=== PATIENT | female | born 1955 | race Caucasian/White ===

== ENCOUNTER 2017-04-21 04:10 | Inpatient (IN) | payer MEDICARE, OTHER ==
[~2017-04-21] VITALS: Ht 165.1 cm; Wt 72.0 kg
[2017-04-21] VITALS (16 sets, daily range): BP systolic 123–147; BP diastolic 60–80; PULSE 69–92; RESP 16–22; TEMP 97.6–98.5; O2SAT 93–98
[~2017-04-21 04:10] MED LIST: AMLO5TAB2 PO; ASPI1TAB69 PO; BENZ100 PO; CIPR500T2 PO; CODE5LIQ PO; FERR325T PO; GLIP5TAB8 PO; LEVO.05 PO; LIPI20TA PO; MAGN400T2 PO; VITA500T4 PO; ZITHTAB PO
[2017-04-21] MEDS ORDERED: methylPREDNISolone SOD SUCC 125 MG/2 ML VIAL IV PUSH ONE (04:30)
--- NOTE | 2017-04-21 04:31 | PD ---
HPI Chief Complaint: Respiratory Symptoms Time Seen by Provider: 04:18 Travel History International Travel<30 days: No Contact w/Intl Traveler<30days: No Traveled to known affect area: No History of Present Illness HPI 61yo F with PMH of DM, HTN, hypothyroidism, CKD, anemia presents to the ED with multiple complaints. States she still feels sick. Pt has been having cough, generalized aches, intermittent vomiting, nausea, intermittent nonbloody diarrhea for about 5 days. Said she has midsternal chest pain when she coughs. Pt is a chronic smoker but recently switched to e-cigarettes. Went to see primary care on 04/18/17 and given zpak, tessalin pearls, and robitussin. Said she has been taking zpak but not the cough medications. PFSH Past Medical History Hx Anticoagulant Therapy: Yes (?) Anemia: Yes Asthma: No Blood Disorders: No Anxiety: No Depression: No Heart Rhythm Problems: No Cancer: No Cardiovascular Problems: Yes (hx CHF) High Cholesterol: Yes Chemotherapy: No Chest Pain: Yes Congestive Heart Failure: Yes COPD: No Cerebrovascular Accident: Yes (TIA) Diabetes: Yes (DM TYPE 2) Patient Takes Glucophage: Yes Diminished Hearing: No Endocrine: Yes Gastrointestinal Disorders: Yes (DIVERTICULOSIS, HEMORRHOIDS, COLITIS, GASTRIC ULCER) GERD: Yes Genitourinary: Yes (CKD STAGE 2-3) Hepatitis: No Hiatal Hernia: No Hypertension: Yes Immune Disorder: No Implanted Vascular Access Dvce: No Musculoskeletal: No Neurologic: Yes (PERIPHERAL NEUROPATHY) Psychiatric: No Reproductive: No Respiratory: No Immunizations Current: Yes Radiation Therapy: No Sleep Apnea: No Thyroid Disease: Yes (HYPO) Tetanus Vaccination: < 5 Years Influenza Vaccination: Yes Menopausal: Yes : 2 Para: 2 Past Surgical History Abdominal Surgery: Yes (appendectomy) Appendectomy: Yes Section: Yes (X2) Ear Surgery: No Eye Surgery: No Gynecologic Surgery: Yes (2 c sections) Joint Replacement: No Oral Surgery: No Pacemaker: No Other Surgery: Yes (APPENDECTOMY, D+C X 2, RT 3RD TOE AMPUTATION) Social History Alcohol Use: Yes (OCC) Tobacco Use: No Substance Use: No Allergies-Medications (Allergen,Severity, Reaction): Coded Allergies: Sulfa (Sulfonamide Antibiotics) (Unverified Adverse Reaction, Mild, RASH, 04/21/17) sulfamethoxazole (Unverified Adverse Reaction, Mild, Rash, 04/21/17) trimethoprim (Unverified Adverse Reaction, Mild, Rash, 04/21/17) Reported Meds & Prescriptions Reported Meds & Active Scripts Active Zithromax Z-Caleb (Azithromycin) 250 Mg Dspk 250 Mg PO DIRECTED 500 MG (2 tabs) day 1, then 1 tab days 2-5. Tessalon Perles (Benzonatate) 100 Mg Cap 200 Mg PO TID PRN Guaiatussin AC Liquid (Codeine Phosphate/Guaifenesin) 10 Mg-100 Mg/5 Ml (5 Ml) Liquid 10 Ml PO HS Ciprofloxacin (Ciprofloxacin HCl) 500 Mg Tab 500 Mg PO BID Amlodipine (Amlodipine Besylate) 5 Mg Tab 5 Mg PO DAILY Glipizide 5 Mg Tab 5 Mg PO DAILY Take 30 minutes before a meal Lipitor (Atorvastatin Calcium) 20 Mg Tab 20 Mg PO DAILY Synthroid (Levothyroxine Sodium) 50 Mcg Tab 50 Mcg PO DAILY Reported Vitamin B-12 (Cyanocobalamin) 500 Mcg Tab 500 Mcg PO DAILY Aspirin 81 Mg Tabdr 81 Mg PO DAILY Ferrous Sulfate 325 Mg Tab 325 Mg PO BID Magnesium Oxide 400 Mg Tab 800 Mg PO BID Review of Systems Except as stated in HPI: all other systems reviewed are Neg Physical Exam Narrative GENERAL: 61yo F in mild distress. SKIN: Focused skin assessment warm/dry. HEAD: Atraumatic. Normocephalic. EYES: Pupils equal and round. No scleral icterus. No injection or drainage. ENT: Throat: Clear. NECK: Trachea midline. No JVD. CARDIOVASCULAR: Regular rate and rhythm. No murmur appreciated. RESPIRATORY: Expiratory wheezing bilaterally. O2 sat 94% on RA. GASTROINTESTINAL: Abdomen soft, non-tender, nondistended. MUSCULOSKELETAL: No obvious deformities. No clubbing. No cyanosis. No edema. No calf tenderness. NEUROLOGICAL: Awake and alert. No obvious cranial nerve deficits. Motor grossly within normal limits. Normal speech. PSYCHIATRIC: Appropriate mood and affect; insight and judgment normal. Data Data Last Documented VS Vital Signs Date Time Temp Pulse Resp B/P (MAP) Pulse Ox O2 Delivery O2 Flow Rate FiO2 04/21/17 06:36 91 141/63 (89) 04/21/17 06:13 20 04/21/17 05:37 98 Nasal Cannula 2.00 04/21/17 04:18 98.4 Orders Orders Complete Blood Count With Diff (04/21/17 04:25) Basic Metabolic Panel (Bmp) (04/21/17 04:25) B-Type Natriuretic Peptide (04/21/17 04:25) Act Partial Throm Time (Ptt) (04/21/17 04:25) Prothrombin Time / Inr (Pt) (04/21/17 04:25) Magnesium (Mg) (04/21/17 04:25) Troponin I (04/21/17 04:25) Influenzae A/B Antigen (04/21/17 04:25) Electrocardiogram (04/21/17 04:25) Chest, Single Ap (04/21/17 04:25) Methylprednisolone So Succ Inj (Solumedr (04/21/17 04:30) Albuterol-Ipratropium Neb (Duoneb Neb) (04/21/17 04:30) Lactic Acid Sepsis Protocol (04/21/17 04:31) Sodium Chlor 0.9% 1000 Ml Inj (Ns 1000 M (04/21/17 04:45) Ondansetron Inj (Zofran Inj) (04/21/17 04:45) Ketorolac Inj (Toradol Inj) (04/21/17 04:45) Ondansetron Inj (Zofran Inj) (04/21/17 05:30) Morphine Inj (Morphine Inj) (04/21/17 05:45) Sodium Chloride 0.9% Flush (Ns Flush) (04/21/17 09:00) Sodium Chloride 0.9% Flush (Ns Flush) (04/21/17 05:45) Laborer Pipeline / Telemetry SINAN.Q8H (04/21/17 05:40) Heparin Inj (Heparin Inj) (04/21/17 11:45) Heparin Inj (Heparin Inj) (04/21/17 11:45) Heparin-D5w 25,000 U/250 Ml (Heparin-D5w (04/21/17 05:45) Act Partial Throm Time (Ptt) (04/21/17 05:40) Prothrombin Time / Inr (Pt) (04/21/17 05:40) Cbc No Diff, Includes Plts (04/21/17 05:40) Cbc No Diff, Includes Plts (04/24/17 06:00) Act Partial Throm Time (Ptt) (04/21/17 12:40) Aspirin (Aspirin) (04/21/17 06:00) Consult Cardiology (04/21/17 ) Nitroglycerin-D5w 50 Mg/250 Ml (Nitrogly (04/21/17 06:15) Heparin Inj (Heparin Inj) (04/21/17 06:15) (Hub Use Only)Inp Phy Cons/Ref (04/21/17 06:17) Calcium Gluconate Inj (Calcium Gluconate (04/21/17 06:45) Sodium Polysty Sulfate Liq (Kayexalate L (04/21/17 06:45) Admit Order (Ed Use Only) (04/21/17 06:35) Urinalysis - C+S If Indicated (04/21/17 06:36) Admit To Inpatient (04/21/17 ) Code Status (04/21/17 06:33) Vital Signs (Adult) SINAN.Q1H (04/21/17 06:33) Activity Bed Rest (04/21/17 06:33) Sodium Chloride 0.9% Flush (Ns Flush) (04/21/17 06:45) Sodium Chloride 0.9% Flush (Ns Flush) (04/21/17 09:00) Pantoprazole Inj (Protonix Inj) (04/21/17 09:00) Albuterol-Ipratropium Neb (Duoneb Neb) (04/21/17 10:00) Albuterol-Ipratropium Neb (Duoneb Neb) (04/21/17 06:45) Complete Blood Count With Diff (04/22/17 04:00) Comprehensive Metabolic Panel (04/22/17 04:00) Troponin I (04/21/17 06:33) Troponin I (04/21/17 12:33) Chest, Single Ap (04/22/17 06:00) Laborer Pipeline / Telemetry SINAN.Q8H (04/21/17 06:33) ^ Initiate Protocol (04/21/17 06:33) Instruction (04/21/17 06:33) [employer] Nursing Information (04/21/17 06:45) Chlorhexidine 2% Cloth (Chlorhexidine 2% (04/22/17 04:00) Chlorhexidine 2% Cloth (Chlorhexidine 2% (04/21/17 06:45) Mrsa Pcr Surveillance (04/21/17 06:33) Docusate Sodium-Senna (Malaika-Colace) (04/21/17 09:00) Magnesium Hydroxide Liq (Milk Of Magnesi (04/21/17 06:45) Sennosides (Senokot) (04/21/17 06:45) Bisacodyl Supp (Dulcolax Supp) (04/21/17 06:45) Lactulose Liq (Lactulose Liq) (04/21/17 06:45) Inpatient Certification (04/21/17 ) Labs Laboratory Tests Test 04/21/17 04:40 White Blood Count 12.2 TH/MM3 Red Blood Count 3.21 MIL/MM3 Hemoglobin 10.6 GM/DL Hematocrit 32.9 % Mean Corpuscular Volume 102.5 FL Mean Corpuscular Hemoglobin 33.2 PG Mean Corpuscular Hemoglobin Concent 32.4 % Red Cell Distribution Width 13.1 % Platelet Count 136 TH/MM3 Mean Platelet Volume 9.2 FL Neutrophils (%) (Auto) 87.2 % Lymphocytes (%) (Auto) 5.5 % Monocytes (%) (Auto) 6.5 % Eosinophils (%) (Auto) 0.5 % Basophils (%) (Auto) 0.3 % Neutrophils # (Auto) 10.6 TH/MM3 Lymphocytes # (Auto) 0.7 TH/MM3 Monocytes # (Auto) 0.8 TH/MM3 Eosinophils # (Auto) 0.1 TH/MM3 Basophils # (Auto) 0.0 TH/MM3 CBC Comment DIFF FINAL Differential Comment Prothrombin Time 10.8 SEC Prothromb Time International Ratio 1.0 RATIO Activated Partial Thromboplast Time 30.3 SEC Blood Urea Nitrogen 76 MG/DL Creatinine 5.89 MG/DL Random Glucose 120 MG/DL Calcium Level 7.6 MG/DL Magnesium Level 1.8 MG/DL Sodium Level 131 MEQ/L Potassium Level 5.5 MEQ/L Chloride Level 102 MEQ/L Carbon Dioxide Level 15.4 MEQ/L Anion Gap 14 MEQ/L Estimat Glomerular Filtration Rate 7 ML/MIN Lactic Acid Level 0.9 mmol/L Troponin I 7.85 NG/ML B-Type Natriuretic Peptide 971 PG/ML MDM Medical Decision Making Medical Screen Exam Complete: Yes Emergency Medical Condition: Yes Interpretation(s) EKG: NSR 97bpm. Normal axis. ST depression I, aVL, V5, V6. 1mm ST elevation in III. Differential Diagnosis COPD exacerbation vs. viral syndrome vs. influenza vs. dehydration vs. pneumonia Narrative Course 61yo F with multiple complaints. States she has not been feeling well since Monday and went to see her primary care doctor 04/18 who thinks she has pneumonia so was given zpak. Pt initially said chest pain only with coughing but now said chest pain has been there since Monday. She really have generalized pain. Labs reviewed, leukocytosis at 12.2. H/H low at 10.6/32.9 but this is her baseline and she has a history of anemia. Denies any black stool. Mild hyperkalemia at 5.5. Pt has already been given albuterol treatment because she was wheezing. Will give kaexylate. Creatinine is elevated at 5.89 compared to 2.87 from 03/14/17. Calcium 7.6, will replace. Magnesium normal at 1.8. Lactic acid normal at 0.9. Troponin elevated at 7.85. I discussed with oncall nsh teacher Dr. Tiwari who agrees that it does not meet stemi criteria and to give aspirin, heparin, morphine and nitroglycerin drip if blood pressure is good. BNP is elevated at 971. CXR showed trace left base atelectasis. Critical Care Narrative Aggregate critical care time was 90 minutes. Time to perform other separately billable procedures was not included in the critical care time. My time did not include minutes spent treating any other patients simultaneously or on activities that did not directly contribute to the patient's treatment. The services I provided to this patient were to treat and/or prevent clinically significant deterioration that could result in: cardiovascular collapse or . I provided critical care services requiring my management, as noted below: Chart data review, documentation time, medication orders and management, vital sign assessments/reviewing monitor data, ordering and reviewing lab tests, ordering and interpreting/reviewing x-rays and diagnostic studies, care of the patient and discussion of the patient with the admitting physicians. Diagnosis Primary Impression: NSTEMI (non-ST elevated myocardial infarction) Additional Impressions: Acute on chronic kidney failure Qualified Codes: N17.9 - Acute kidney failure, unspecified; N18.9 - Chronic kidney disease, unspecified Hyperkalemia Admitting Information Admitting Physician Requests: Admit Peggy Barrios DO Apr 21, 2017 04:31
[2017-04-21] MEDS: RESP: ALBUTEROL 2.5 MG/IPRATROPIUM 0.5 MG NEB (SCH) INH ×4 (04:33→20:29)
[2017-04-21] MEDS ORDERED: KETOROLAC TROMETHAMINE 30 MG/ML (IVP) VIAL IV PUSH ONE (04:45)
[2017-04-21] MEDS ORDERED: SODIUM CHLOR 0.9% 1000 ML INJ 1,000 ML IV ONE ×2 (04:45→06:45)
[2017-04-21] MEDS ORDERED: ONDANSETRON HCL 4 MG/2 ML VIAL IV PUSH ONE (04:45)
[2017-04-21 04:47] LABS: AUTOMATED NEUTROPHIL # 10.6 TH/MM3 (1.8-7.7); BASOPHIL % 0.3 % (0.0-2.0); EOSINOPHIL # 0.1 TH/MM3 (0-0.4); EOSINOPHIL % 0.5 % (0.0-4.0); HEMATOCRIT 32.9 % (35.0-46.0); HEMO FLAGS DIFF FINAL; LYMPH % 5.5 % (9.0-44.0); LYMPHOCYTE # 0.7 TH/MM3 (1.0-4.8); MEAN CELL VOLUME 102.5 FL (80.0-100.0); MEAN CORPUSCULAR HEMOGLOBIN 33.2 PG (27.0-34.0); MEAN CORPUSCULAR HGB CONC 32.4 % (32.0-36.0); MONO % 6.5 % (0.0-8.0); NEUT % 87.2 % (16.0-70.0); PLATELET COUNT 136 TH/MM3 (150-450); RED BLOOD COUNT 3.21 MIL/MM3 (4.00-5.30); RED CELL DISTRIBUTION WIDTH 13.1 % (11.6-17.2); WHITE BLOOD COUNT 12.2 TH/MM3 (4.0-11.0)
[2017-04-21 04:59] LABS: APTT (PATIENT) 30.3 SEC (24.3-30.1); PROTHROMBIN TIME - PATIENT 10.8 SEC (9.8-11.6)
[2017-04-21 05:02] LABS: BICARBONATE 15.4 MEQ/L (21.0-32.0); MAGNESIUM 1.8 MG/DL (1.5-2.5); POTASSIUM 5.5 MEQ/L (3.5-5.1)
--- NOTE | 2017-04-21 05:02 | RADRPT ---
EXAM DATE/TIME: 04/21/2017 04:49 [facility] COMPARISON: CHEST SINGLE AP, April 27, 2015, 5:29. INDICATIONS : Shortness of breath, cough, congestion and chest pain. MEDICAL HISTORY : Congestive heart failure. SURGICAL HISTORY : None. ENCOUNTER: Initial ACUITY: 3 days PAIN SCORE: 6/10 LOCATION: chest FINDINGS: Trace left base atelectasis noted. Lungs otherwise clear. No pleural effusion seen. No pneumothorax. Heart size stable, upper limits of normal. CONCLUSION: Trace left base atelectasis. Keegan Dobbs MD on April 21, 2017 at 5:00 Board Certified Radiologist. This report was verified electronically.
[2017-04-21] MEDS: ONDANSETRON HCL 4 MG/2 ML VIAL IV PUSH ONE ×2 (05:30→06:54)
[2017-04-21] MEDS ORDERED: MORPHINE SULFATE 2 MG/ML INJ IV PUSH ONE (05:45)
[2017-04-21] MEDS ORDERED: SODIUM CHLORIDE 0.9% FLUSH 10 ML FLUSH IV FLUSH PRN ×2 (05:45→06:45)
[2017-04-21] MEDS ORDERED: ASPIRIN 325 MG TAB PO ONE (06:00)
[2017-04-21] MEDS: HEPARIN-D5W 25,000 U/250 ML 250 ML IV PRN (06:08)
[2017-04-21] MEDS ORDERED: NITROGLYCERIN-D5W 50 MG/250 ML 250 ML IV ONE (06:15)
[2017-04-21] MEDS ORDERED: HEPARIN SODIUM - IV 10,000 UNITS/10 ML VIAL IV PUSH ONE (06:15)
[2017-04-21] MEDS ORDERED: MAGNESIUM HYDROXIDE SUSP 30 ML CUP PO PRN (06:45)
[2017-04-21] MEDS ORDERED: MISCELLANEOUS NURSING INFORMATION XX SCH (06:45)
[2017-04-21] MEDS ORDERED: SENNOSIDES 8.6 MG TAB PO PRN (06:45)
[2017-04-21] MEDS ORDERED: CALCIUM GLUCONATE 10% 1 GM/10 ML VIAL SLOW IVP ONE (06:45)
[2017-04-21] MEDS ORDERED: LACTULOSE SYRUP 20 GM/30 ML CUP PO PRN (06:45)
[2017-04-21] MEDS ORDERED: SODIUM CHLOR 0.9% 1000 ML INJ 1,000 ML IV SCH (06:45)
[2017-04-21] MEDS ORDERED: BISACODYL 10 MG SUPP RECTAL PRN (06:45)
[2017-04-21] MEDS ORDERED: RESP: ALBUTEROL 2.5 MG/IPRATROPIUM 0.5 MG NEB (PRN) INH (06:45)
[2017-04-21] MEDS ORDERED: CHLORHEXIDINE GLUCONATE 2 % 1 PACK (2 CLOTHS) TOP PRN (06:45)
[2017-04-21] MEDS ORDERED: SODIUM POLYSTYRENE SULFONATE SUSP 15 GM/60 ML CUP PO ONE (06:45)
[2017-04-21] MEDS: DOCUSATE SODIUM 50 MG/SENNA 8.6 MG TAB PO SCH ×2 (09:00→21:30)
[2017-04-21] MEDS: SODIUM CHLORIDE 0.9% FLUSH 10 ML FLUSH IV FLUSH SCH ×2 (09:00→21:30)
[2017-04-21] MEDS ORDERED: SODIUM CHLORIDE 0.9% FLUSH 10 ML FLUSH IV FLUSH SCH (09:00)
--- NOTE | 2017-04-21 09:36 | EKG ---
Date Performed: 04/21/2017 Time Performed: 05:22:17 PTAGE: 61 years EKG: Sinus rhythm NONSPECIFIC ST & T-WAVE ABNORMALITY BORDERLINE ECG PREVIOUS TRACING 04/27/15 Since previous tracing, nonspecific ST changes are more prominent, co nsider ischemia. DOCTOR: Balaji Pérez Interpretating Date/Time 04/21/2017 09:34:01
--- NOTE | 2017-04-21 10:33 | HHI.HP ---
[facility] Service Critical Care Medicine Primary Care Physician Heather Delgado MD Admission Diagnosis NSTEMI, acute on chronic kidney injury Diagnosis: (1) NSTEMI (non-ST elevated myocardial infarction) Diagnosis: Principal (2) Acute on chronic kidney failure Diagnosis: Principal (3) Hyperkalemia Diagnosis: Principal (4) COPD with acute exacerbation Diagnosis: Principal (5) DM2 (diabetes mellitus, type 2) Diagnosis: Secondary (6) HLD (hyperlipidemia) Diagnosis: Secondary (7) HTN (hypertension) Diagnosis: Secondary (8) Anemia Diagnosis: Secondary Chief Complaint: Chest pain and generalized body pain NSTEMI Travel History International Travel<30 Days: No Contact w/Intl Traveler <30 Da: No Traveled to Known Affected Are: No History of Present Illness 61 year old female with PMH of DM, HTN, hypothyroidism, CKD, COPD, anemia presented to the ED with complaints of generalized body pain predominantly chest pain. Complains of having cough, generalized aches, intermittent vomiting , nausea, diarrhea for about 5 days. Recently had been diagnosed with pneumonia had been placed on Z-Caleb. ER workup including EKG showed nonspecific ST-T wave changes possible ischemia. Chest x-ray showed mild left lower lobe atelectasis. Lab work showed leukocytosis at 12.2, potassium 5.5. Creatinine was 5.89 compared to 2.87 from 03/14/17. Troponin elevated at 7.85. Dr. Barrios discussed with squadron worker firewall security engineer Dr. Tiwari. Patient started on aspirin, heparin. SUBJ 04/21: I evaluated the patient ICU. She appears in moderate distress. Exam reveals bilateral wheezing. I have started her on IV Solu-Medrol and scheduled DuoNeb. We'll place on Levaquin for COPD exacerbation. Medical management for an STEMI, may need cardiac catheterization at a later time. Nephrology consult also placed Review of Systems ROS Limitations: Other (as per [facility]) Past Family Social History Allergies: Coded Allergies: Sulfa (Sulfonamide Antibiotics) (Unverified Adverse Reaction, Mild, RASH, 04/21/17) sulfamethoxazole (Unverified Adverse Reaction, Mild, Rash, 04/21/17) trimethoprim (Unverified Adverse Reaction, Mild, Rash, 04/21/17) Past Medical History COPD Diabetes type 2 Hypertension Hyperlipidemia Peripheral neuropathy CKD stage 2-3 Gastric ulcer Nonspecific colitis Diverticulosis Hemorrhoids Tobacco abuse Past Surgical History Amputation of the right third toe Appendectomy Reported Medications Zithromax Z-Caleb (Azithromycin) 250 Mg Dspk 250 Mg PO DIRECTED Tessalon Perles (Benzonatate) 100 Mg Cap 200 Mg PO TID PRN Guaiatussin AC Liquid (Codeine Phosphate/Guaifenesin) 10 Mg-100 Mg/5 Ml (5 Ml) Liquid 10 Ml PO HS Ciprofloxacin (Ciprofloxacin HCl) 500 Mg Tab 500 Mg PO BID Amlodipine (Amlodipine Besylate) 5 Mg Tab 5 Mg PO DAILY Glipizide 5 Mg Tab 5 Mg PO DAILY Lipitor (Atorvastatin Calcium) 20 Mg Tab 20 Mg PO DAILY Synthroid (Levothyroxine Sodium) 50 Mcg Tab 50 Mcg PO DAILY Vitamin B-12 (Cyanocobalamin) 500 Mcg Tab 500 Mcg PO DAILY Aspirin 81 Mg Tabdr 81 Mg PO DAILY Ferrous Sulfate 325 Mg Tab 325 Mg PO BID Magnesium Oxide 400 Mg Tab 800 Mg PO BID Active Ordered Medications Reviewed Family History No cardiac history Social History Smokes about a pack of cigarettes per day Physical Exam Vital Signs Vital Signs Date Time Temp Pulse Resp B/P (MAP) Pulse Ox O2 Delivery O2 Flow Rate FiO2 04/21/17 07:47 04/21/17 07:30 98.3 91 20 147/66 (93) 93 04/21/17 06:38 92 141/63 04/21/17 06:36 91 141/63 (89) 04/21/17 06:13 20 04/21/17 05:52 20 04/21/17 05:37 92 22 139/64 (89) 98 Nasal Cannula 2.00 04/21/17 04:30 98 Nasal Cannula 2.00 04/21/17 04:18 98.4 91 18 128/60 (82) 95 Physical Exam GENERAL:elderly female in moderate distress. SKIN: Skin dry. HEAD: Atraumatic. Normocephalic. EYES: Pupils equal and round. No scleral icterus. No injection or drainage. ENT: Air way patent NECK: Trachea midline. No JVD. CARDIOVASCULAR: Regular rate and rhythm. No murmur appreciated. RESPIRATORY: Expiratory wheezing bilaterally. No crackles GASTROINTESTINAL: Abdomen soft, non-tender, nondistended. MUSCULOSKELETAL: Status post right third toe amputation NEUROLOGICAL: Awake and alert. No obvious cranial nerve deficits. Motor grossly within normal limits. Normal speech. Laboratory Laboratory Tests Test 04/21/17 04:40 11/3/17 07:40 04/21/17 08:20 White Blood Count 12.2 Red Blood Count 3.21 Hemoglobin 10.6 Hematocrit 32.9 Mean Corpuscular Volume 102.5 Mean Corpuscular Hemoglobin 33.2 Mean Corpuscular Hemoglobin Concent 32.4 Red Cell Distribution Width 13.1 Platelet Count 136 Mean Platelet Volume 9.2 Neutrophils (%) (Auto) 87.2 Lymphocytes (%) (Auto) 5.5 Monocytes (%) (Auto) 6.5 Eosinophils (%) (Auto) 0.5 Basophils (%) (Auto) 0.3 Neutrophils # (Auto) 10.6 Lymphocytes # (Auto) 0.7 Monocytes # (Auto) 0.8 Eosinophils # (Auto) 0.1 Basophils # (Auto) 0.0 CBC Comment DIFF FINAL Differential Comment Prothrombin Time 10.8 Prothromb Time International Ratio 1.0 Activated Partial Thromboplast Time 30.3 Blood Urea Nitrogen 76 Creatinine 5.89 Random Glucose 120 Calcium Level 7.6 Magnesium Level 1.8 Sodium Level 131 Potassium Level 5.5 Chloride Level 102 Carbon Dioxide Level 15.4 Anion Gap 14 Estimat Glomerular Filtration Rate 7 Lactic Acid Level 0.9 Troponin I 7.85 B-Type Natriuretic Peptide 971 Date/Time Source Procedure Growth Status 04/21/17 04:40 Nasal Aspirate Influenza Types A,B Antigen (CHUCK) - Final NEGATIVE FOR FLU A AND B ANTIGEN.... Complete Result Diagram: 04/21/17 0440 04/21/17 0440 Imaging CXR Mild L base atelectasis Caprini VTE Risk Assessment Caprini VTE Risk Assessment: Mod/High Risk (score >= 2) Caprini Risk Assessment Model Point Value = 1 Point Value = 2 Point Value = 3 Point Value = 5 Age 41-60 Minor surgery BMI > 25 kg/m2 Swollen legs Varicose veins or History of unexplained or recurrent spontaneous Oral contraceptives or hormone replacement Sepsis (< 1 month) Serious lung disease, including pneumonia (< 1 month) Abnormal pulmonary function Acute myocardial infarction Congestive heart failure (< 1 month) History of inflammatory bowel disease Medical patient at bed rest Age 61-74 Arthroscopic surgery Major open surgery (> 45 min) Laparoscopic surgery (> 45 min) Malignancy Confined to bed (> 72 hours) Immobilizing plaster cast Central venous access Age >= 75 History of VTE Family history of VTE Factor V Leiden Prothrombin [id number] Lupus anticoagulant Anticardiolipin antibodies Elevated serum homocysteine Heparin-induced thrombocytopenia Other congenital or acquired thrombophilia Stroke (< 1 month) Elective arthroplasty Hip, pelvis, or leg fracture Acute spinal cord injury (< 1 month) Prophylaxis Regimen Total Risk Factor Score Risk Level Prophylaxis Regimen 0-1 Low Early ambulation 2 Moderate Order ONE of the following: *Sequential Compression Device (SCD) *Heparin 5000 units SQ BID 3-4 Higher Order ONE of the following medications: *Heparin 5000 units SQ TID *Enoxaparin/Lovenox 40 mg SQ daily (WT < 150 kg, CrCl > 30 mL/min) *Enoxaparin/Lovenox 30 mg SQ daily (WT < 150 kg, CrCl > 10-29 mL/min) *Enoxaparin/Lovenox 30 mg SQ BID (WT < 150 kg, CrCl > 30 mL/min) AND/OR *Sequential Compression Device (SCD) 5 or more Highest Order ONE of the following medications: *Heparin 5000 units SQ TID (Preferred with Epidurals) *Enoxaparin/Lovenox 40 mg SQ daily (WT < 150 kg, CrCl > 30 mL/min) *Enoxaparin/Lovenox 30 mg SQ daily (WT < 150 kg, CrCl > 10-29 mL/min) *Enoxaparin/Lovenox 30 mg SQ BID (WT < 150 kg, CrCl > 30 mL/min) AND *Sequential Compression Device (SCD) Assessment and Plan Assessment and Plan NEURO: - Minimize sedation, as needed morphine for pain RESP: Acute COPD exacerbation Tobacco abuse - Nasal cannula oxygen to keep saturation more than 90% - DuoNeb every 6 hours scheduled and when necessary - IV Solu-Medrol 60 mg every 12 hours - Empiric Levaquin CV: NSTEMI - Continue aspirin, IV heparin and Coreg 3.125 mg twice a day - Continue home Lipitor - Normal saline 1 L bolus and maintenance at 84 mL per hour - Check 2d echo, cardiology consult, cycle cardiac enzymes GI: History of gastric ulcer - Start heart healthy renal diet once medically stable. IV famotidine : Acute on chronic kidney disease - Monitor renal function closely. Place Adan catheter. - Nephrology consult. Renal US. Further workup for nephrology ID: - Monitor for infection, empiric Levaquin HEME: - Monitor CBC, CMP, coags ENDO: - Received Kayexalate for hyperkalemia in the ED PROPH: - Bilateral lower extremity SCDs. IV Heparin, IV Famotidine LINES: - Utilize peripheral IVs, central line if needed CC time 42 min Code Status Full Discussed Condition With Dr. Barrios and bedside RN Problem Qualifiers (1) Acute on chronic kidney failure: Qualified Codes: N17.9 - Acute kidney failure, unspecified; N18.9 - Chronic kidney disease, unspecified (2) DM2 (diabetes mellitus, type 2): (3) HLD (hyperlipidemia): Qualified Codes: E78.5 - Hyperlipidemia, unspecified (4) HTN (hypertension): Qualified Codes: I10 - Essential (primary) hypertension (5) Anemia: Qualified Codes: D64.9 - Anemia, unspecified Mohamud Allison MD Apr 21, 2017 10:33
[2017-04-21 10:35] LABS: BACTERIA, URINE FEW /hpf; BLOOD, URINE MOD (NEG); COMMENT (UR) CATH-CULTURE IND; CULTURE IF INDICATED CATH CULTURE IND; GLUCOSE,URINE TRACE mg/dL (NEG); KETONE, URINE NEG (NEG); NITRITE,URINE NEG (NEG); SQUAMOUS EPITHELIAL CELL URINE 1 /hpf (0-5); URINE COLOR YELLOW (YELLW/STRAW)
[2017-04-21] MEDS: PANTOPRAZOLE SODIUM 40 MG VIAL IV PUSH SCH (11:02)
[2017-04-21] MEDS: CARVEDILOL 3.125 MG TAB PO SCH ×2 (11:02→21:30)
[2017-04-21] MEDS: CYANOCOBALAMIN 1,000 MCG TAB PO SCH (11:02)
[2017-04-21] MEDS: methylPREDNISolone SOD SUCC 125 MG/2 ML VIAL IV PUSH SCH ×2 (11:30→21:30)
[2017-04-21] MEDS ORDERED: HEPARIN SODIUM - IV 10,000 UNITS/10 ML VIAL IV PUSH PRN ×2 (11:45)
[2017-04-21] MEDS: INSULIN ASPART SUPPLEMENTAL SCALE SQ SCH ×3 (12:00→20:00)
[2017-04-21 12:17] LABS: HEMATOCRIT 35.3 % (35.0-46.0); MEAN CELL VOLUME 104.7 FL (80.0-100.0); MEAN CORPUSCULAR HEMOGLOBIN 32.9 PG (27.0-34.0); MEAN CORPUSCULAR HGB CONC 31.5 % (32.0-36.0); PLATELET COUNT 134 TH/MM3 (150-450); RED BLOOD COUNT 3.37 MIL/MM3 (4.00-5.30); RED CELL DISTRIBUTION WIDTH 13.1 % (11.6-17.2); REVIEW FLAG FINAL; WHITE BLOOD COUNT 12.7 TH/MM3 (4.0-11.0)
[2017-04-21 12:27] LABS: APTT (PATIENT) 51.3 SEC (24.3-30.1); PROTHROMBIN TIME - PATIENT 11.1 SEC (9.8-11.6)
[2017-04-21] MEDS: LEVOFLOXACIN 500 MG PREMIX INJ 100 ML IV SCH (13:21)
--- NOTE | 2017-04-21 13:42 | MB ---
cc: HEMANTH DAMICO DO DATE OF CONSULTATION: 04/21/2017 REASON FOR CONSULTATION: N-STEMI. HISTORY OF PRESENT ILLNESS: Michelle Alicia is a pleasant 61-year-old female who presented to [facility] due to multiple complaints. Apparently she has been feeling sick over the past 3-4 days. She has had a cough general aches and intermittent nausea and vomiting. She does have midsternal chest pain but it is mostly when she is coughing. It is somewhat tight and she has not had this before. She was seen by a primary care physician was given a Z-Caleb, Cathryndilcia Kuoes her Robitussin. She states that she has been taking her Z-caleb but not the cough medication. On arrival she was found to have an elevated troponin of 7.85 and started on a heparin drip. She was also noted to have an elevated creatinine of 5.98 which is almost double her previous creatinine from a month before. PAST MEDICAL HISTORY: 1. Chronic obstructive pulmonary disease 2. Diabetes mellitus 3. Hypertension 4. Hyperlipidemia 5. Peripheral neuropathy 6. CKD 2-3 7. Gastric ulcer. 8. Nonspecific colitis. 9. Diverticulosis. 10. Hemorrhoids. 11. Tobacco abuse. PAST SURGICAL HISTORY 1. Amputation of the right third toe 2. . 3. Appendectomy. ALLERGIES SULFA SULFAMETHIZOLE TRIMETHOPRIM FAMILY HISTORY Denies premature coronary artery disease or sudden cardiac within the family. SOCIAL HISTORY Denies alcohol or drug abuse. Smokes about a pack of cigarettes a day. REVIEW OF SYSTEMS 14-systems were reviewed including osteopathic. Including osteopathic pertinent positives and negatives above otherwise negative. PHYSICAL EXAMINATION VITAL SIGNS: Temperature 98.3, heart rate 91, blood pressure 170/75, respirations 20, pulse ox 93% on 2 liters. IN GENERAL: In general the patient appears well in no acute distress, alert awake and oriented x3. Extraocular muscles intact. Mucous membranes moist. NECK: Neck is supple. No JVD at 45 degrees. No carotid bruits heard bilaterally. Carotid upstroke is brisk in nature. HEART: Heart is regular rate and rhythm. Positive first and second heart sounds without murmurs, gallops or rubs. LUNGS: The lungs have decreased breath sounds bilaterally but no overt wheezes, rales or rhonchi. ABDOMEN: The abdomen is soft, nontender, nondistended. No organomegaly noted. EXTREMITIES: Show trace edema bilaterally. NEUROLOGICALLY: No focal deficits. SKIN: Warm, dry and intact. OSTEOPATHIC: Osteopathically, mild lordosis. No kyphoscoliosis or paraspinal tender points. LABORATORY FINDINGS Hemoglobin 10.6, hematocrit 32.9, platelets 136. Potassium 5.5, BUN 76, creatinine 5.89, troponin 7.85. BNP 971. Electrocardiogram (April 21, 2017 at 0522) sinus rhythm, nonspecific ST-T wave changes in the ER. Impressions: 1. NSTEMI 2. LEEANN on CKD 3. COPD 4. HTN. 5. HLD RECOMMENDATIONS 1. Ms. Alicia presented with a myriad of symptoms but was found to have an elevated troponin but along with this but doubling of her creatinine. 2. She will be recommended cardiac catheterization if possible but I would attempt to allow her kidneys to possibly recover somewhat before this as she would be a high chance for being on dialysis which she would like to avoid. 3. We will continue her on a heparin drip, aspirin and Coreg. 4. She has been started on the nitroglycerin drip and as she is quite hypertensive I will have them titrate this up for better blood pressure control. 5. We will check an echo to look her overall left ventricular function, cardiac structure and possible valvopathies. 6. Eventually she should undergo a coronary angiogram. If possible with her kidney function to rule out significant lesions. 7. I spoke with her for greater than 3 minutes about tobacco cessation. Thank you for allowing me to see Michelle Alicia there are any questions please do not hesitate to call. Hemanth Damico DO JOSE/angelo /11:40 AM /1:00 PM CEE
--- NOTE | 2017-04-21 15:16 | PD.CONS ---
[facility] Service Nephrology Consult Requested By Reason for Consult Acute on CKD Primary Care Physician Red Staley , Heather Mott MD History of Present Illness This is a 61 y/o female patient with a hx of DM II, HTN, suspected underlying diabetic nephropathy with a baseline creatinine of 2.87, GFR 17 from this February. She came to our practice for the initial visit just last month. She was doing well until this past weekend. She was on a cruise to the [employer], where the temperature was near 40 degrees. Monday she began with nausea, vomiting, and later coughing with shortness of breath. On Monday her PCP started treatment for pneumonia including Levaquin PO and Tessalon pearls. She later developed chest pain and therefore came in for evaluation. On arrival her creatinine is is 5.89, BUN 76, K 5.5, Na 131, C0 15.4, BNP 971, Troponin 7.85 and 7.24. She was evaluated by cardiology and admitted for NSTEMI. She is currently on heparin and nitroglycerine gtts. We were consulted to assist with renal management. Given Toradol on admission. She is a full code. (Cris Telles) Review of Systems Constitutional: COMPLAINS OF: Diaphoretic episodes, Fatigue, DENIES: Fever, Change in appetite Respiratory: COMPLAINS OF: Cough Cardiovascular: COMPLAINS OF: Chest pain Gastrointestinal: COMPLAINS OF: Nausea, Vomiting, DENIES: Abdominal pain ( Cris Telles) Past Family Social History Allergies: Coded Allergies: Sulfa (Sulfonamide Antibiotics) (Unverified Adverse Reaction, Mild, RASH, 04/21/17) sulfamethoxazole (Unverified Adverse Reaction, Mild, Rash, 04/21/17) trimethoprim (Unverified Adverse Reaction, Mild, Rash, 04/21/17) Past Medical History CKd 4, baseline creatinine from February 2017 2.87, GFR 17 COPD Diabetes type 2 Hypertension Hyperlipidemia Peripheral neuropathy Gastric ulcer Nonspecific colitis Diverticulosis Hemorrhoids Tobacco abuse Past Surgical History Amputation of the right third toe Appendectomy Reported Medications Zithromax Z-Caleb (Azithromycin) 250 Mg Dspk 250 Mg PO DIRECTED Tessalon Perles (Benzonatate) 100 Mg Cap 200 Mg PO TID PRN Guaiatussin AC Liquid (Codeine Phosphate/Guaifenesin) 10 Mg-100 Mg/5 Ml (5 Ml) Liquid 10 Ml PO HS Ciprofloxacin (Ciprofloxacin HCl) 500 Mg Tab 500 Mg PO BID Amlodipine (Amlodipine Besylate) 5 Mg Tab 5 Mg PO DAILY Glipizide 5 Mg Tab 5 Mg PO DAILY Lipitor (Atorvastatin Calcium) 20 Mg Tab 20 Mg PO DAILY Synthroid (Levothyroxine Sodium) 50 Mcg Tab 50 Mcg PO DAILY Vitamin B-12 (Cyanocobalamin) 500 Mcg Tab 500 Mcg PO DAILY Aspirin 81 Mg Tabdr 81 Mg PO DAILY Ferrous Sulfate 325 Mg Tab 325 Mg PO BID Magnesium Oxide 400 Mg Tab 800 Mg PO BID Active Ordered Medications Current Medications Medications (Trade) Dose Ordered Sig/Des Route Start Time Stop Time Status Last Admin (Heparin Inj) 5,000 units UNSCH PRN IV PUSH 04/21/17 11:45 (Heparin Inj) 2,500 units UNSCH PRN IV PUSH 04/21/17 11:45 Heparin Sodium/ Dextrose 250 ml @ 9 mls/hr TITRATE PRN IV 04/21/17 05:45 04/21/17 06:08 (NS Flush) 2 ml UNSCH PRN IV FLUSH 04/21/17 06:45 (NS Flush) 2 ml BID IV FLUSH 04/21/17 09:00 (Protonix Inj) 40 mg DAILY IV PUSH 04/21/17 09:00 04/21/17 11:02 (Duoneb Neb) 1 ampule Q6HR NEB INH 04/21/17 10:00 (Duoneb Neb) 1 ampule Q4HR NEB PRN INH 04/21/17 06:45 Miscellaneous Information 1 Q361D XX 04/21/17 06:45 (Chlorhexidine 2% Cloth) 3 pack Taper DAILY@04 TOP 04/22/17 04:00 04/18/18 03:59 (Chlorhexidine 2% Cloth) 3 pack UNSCH PRN TOP 04/21/17 06:45 (Malaika-Colace) 1 tab BID PO 04/21/17 09:00 (Milk Of Magnesia Liq) 30 ml Q12H PRN PO 04/21/17 06:45 (Senokot) 17.2 mg Q12H PRN PO 04/21/17 06:45 (Dulcolax Supp) 10 mg DAILY PRN RECTAL 04/21/17 06:45 (Lactulose Liq) 30 ml DAILY PRN PO 04/21/17 06:45 (Aspirin Chew) 81 mg DAILY CHEW 04/22/17 09:00 (Coreg) 3.125 mg Q12HR PO 04/21/17 09:00 04/21/17 11:02 (Lipitor) 10 mg HS PO 04/21/17 21:00 Sodium Chloride 1,000 ml @ 150 mls/hr Q6H40M IV 04/21/17 06:45 (Vitamin B12) 500 mcg DAILY PO 04/21/17 09:00 04/21/17 11:02 (Synthroid) 50 mcg DAILY@0600 PO 04/21/17 07:00 (NovoLOG SUPPLEMENTAL SCALE) 1 Q4HR SQ 04/21/17 08:00 (SoluMEDROL INJ) 60 mg Q12HR IV PUSH 04/21/17 11:30 Levofloxacin/ Dextrose 100 ml @ 100 mls/hr Q48H IV 04/21/17 12:00 04/21/17 13:21 Family History No hx of renal disorders Social History Quit smoking one week ago, now using Electronic cigarettes Occasional wine She is , requires assistance Unemployed Full code (Cris Telles) Physical Exam Vital Signs Vital Signs Date Time Temp Pulse Resp B/P (MAP) Pulse Ox O2 Delivery O2 Flow Rate FiO2 04/21/17 10:00 90 04/21/17 08:00 90 04/21/17 07:47 04/21/17 07:35 69 04/21/17 07:30 98.3 91 20 147/66 (93) 93 04/21/17 06:38 92 141/63 04/21/17 06:36 91 141/63 (89) 04/21/17 06:13 20 04/21/17 05:52 20 04/21/17 05:37 92 22 139/64 (89) 98 Nasal Cannula 2.00 04/21/17 04:30 98 Nasal Cannula 2.00 04/21/17 04:18 98.4 91 18 128/60 (82) 95 Physical Exam female, awake and alert On oxygen, some expiratory wheezing, scattered rales throughout S1/S2, RRR no murmurs Abdomen soft, obese, non tender Ext: no edema : vazquez in place, Laboratory Laboratory Tests Test 04/21/17 04:40 04/21/17 07:40 04/21/17 08:20 04/21/17 11:27 White Blood Count 12.2 12.7 Red Blood Count 3.21 3.37 Hemoglobin 10.6 11.1 Hematocrit 32.9 35.3 Mean Corpuscular Volume 102.5 104.7 Mean Corpuscular Hemoglobin 33.2 32.9 Mean Corpuscular Hemoglobin Concent 32.4 31.5 Red Cell Distribution Width 13.1 13.1 Platelet Count 136 134 Mean Platelet Volume 9.2 9.4 Neutrophils (%) (Auto) 87.2 Lymphocytes (%) (Auto) 5.5 Monocytes (%) (Auto) 6.5 Eosinophils (%) (Auto) 0.5 Basophils (%) (Auto) 0.3 Neutrophils # (Auto) 10.6 Lymphocytes # (Auto) 0.7 Monocytes # (Auto) 0.8 Eosinophils # (Auto) 0.1 Basophils # (Auto) 0.0 CBC Comment DIFF FINAL Differential Comment Prothrombin Time 10.8 11.1 Prothromb Time International Ratio 1.0 1.0 Activated Partial Thromboplast Time 30.3 51.3 Blood Urea Nitrogen 76 Creatinine 5.89 Random Glucose 120 Calcium Level 7.6 Magnesium Level 1.8 Sodium Level 131 Potassium Level 5.5 Chloride Level 102 Carbon Dioxide Level 15.4 Anion Gap 14 Estimat Glomerular Filtration Rate 7 Lactic Acid Level 0.9 Troponin I 7.85 7.24 B-Type Natriuretic Peptide 971 Nasal Screen MRSA (PCR) MRSA NOT DETECTED Urine Color YELLOW Urine Turbidity CLOUDY Urine pH 6.0 Urine Specific [place] 1.014 Urine Protein 300 Urine Glucose (UA) TRACE Urine Ketones NEG Urine Occult Blood MOD Urine Nitrite NEG Urine Bilirubin NEG Urine Urobilinogen LESS THAN 2.0 Urine Leukocyte Esterase SMALL Urine RBC 4 Urine WBC 10 Urine Squamous Epithelial Cells 1 Urine Amorphous Sediment MOD Urine Bacteria FEW Microscopic Urinalysis Comment CATH-CULTURE IND Date/Time Source Procedure Growth Status 04/21/17 04:40 Nasal Aspirate Influenza Types A,B Antigen (CHUCK) - Final NEGATIVE FOR FLU A AND B ANTIGEN.... Complete 04/21/17 08:20 Urine Catheterized Urine Urine Culture Pending Received (Cris Telles) Result Diagram: 04/21/17 1127 04/21/17 0440 Imaging Last 72 hours Impressions Chest X-Ray 04/21/17 0535 Signed Impressions: Service Date/Time: Friday, April 21, 2017 04:49 - CONCLUSION: Trace left base atelectasis. Keegan Dobbs MD (Cris Telles) Assessment and Plan Problem List: (1) Acute on chronic kidney failure ICD Codes: N17.9 - Acute kidney failure, unspecified; N18.9 - Chronic kidney disease, unspecified Status: Acute Plan: She has advanced renal disease,Creatinine 2.8 at baseline Suspected underlying diabetic nephropathy, with 7.5 grams proteinuria LEEANN may due to NSTEMI, possibly sepsis syndrome Hyperkalemic with metabolic acidosis, see below Change IVF to contain bicarb She has a vazquez catheter, can remove in next day or two Monitor urine output, is borderline oliguric currently Quantify proteinuria, obtain MIGUE, ANCA panel, complement levels, hepatitis profile, serum protein electrophorus, urine immunofixation Obtain renal US Repeat labs in AM Given Toradol on admission, avoid nephrotoxins and renally dose medications appropriate to renal status It is possible she may require dialysis this admission (2) DM2 (diabetes mellitus, type 2) ICD Codes: E11.9 - Type 2 diabetes mellitus without complications Status: Chronic Plan: Insulin as needed, goal 140-180 mg/dL while hospitalized (3) NSTEMI (non-ST elevated myocardial infarction) ICD Codes: I21.4 - Non-ST elevation (NSTEMI) myocardial infarction Status: Acute Plan: Cardiology is following On Nitro and heparin gtt 2D echo ordered appreciate further recommendations (4) Hyperkalemia ICD Codes: E87.5 - Hyperkalemia; N18.9 - Chronic kidney disease, unspecified Status: Acute Plan: Due to reduction in GFR and metabolic acidosis Given Kayexalate, start bicarb gtt Repeat labs in AM (5) Metabolic acidosis ICD Codes: E87.2 - Acidosis Plan: Bicarb gtt (1/4 NS with 100 mEq at 50 cc/hr) Follow metabolic profile (Cris Telles) Assessment and Plan patient was seen and examined. Agree with above assessment and plan. We will start bicarb drip on account of hyperkalemia and acidosis. I had seen her in my office in March, GFR was around 18. She was noted to have more than 7 grams of proteinuria, likely diabetic nephropathy. Serological workup had been ordered. She is admitted with NSTEMI. Cardiology on the case. LEEANN could be secondary to renal hypoperfusion. Renal US is pending. Continue to monitor urine output and renal function. Serological workup ordered. May need dialysis during this admission. (Fantasma Corral MD) Problem Qualifiers (1) Acute on chronic kidney failure: Qualified Codes: N17.9 - Acute kidney failure, unspecified; N18.9 - Chronic kidney disease, unspecified (2) DM2 (diabetes mellitus, type 2): Cris Telles Apr 21, 2017 15:16 Fantasma Corral MD Apr 22, 2017 09:56
--- NOTE | 2017-04-21 16:01 | ECHRPT ---
Indication: CONCLUSIONS Technically difficult study In limited views, the left ventricular systolic function is mildly reduced with an estimated ejectio n fraction in the range of 45-50%. Mild concentric left ventricular hypertrophy. There was limited left ventricular wall motion assessment due to poor endocardial visualization. Mild mitral valve regurgitation. There is trace tricuspid valve regurgitation. BP: 141 / 63 HR: Rhythm: Sinus MEASUREMENTS (Male / Female) Normal Values Technical Quality:Fair 2D ECHO LV Diastolic Diameter PLAX 3.8 cm 4.2 - 5.9 / 3.9 - 5.3 cm LV Systolic Diameter PLAX 3.1 cm IVS Diastolic Thickness 1.2 cm 0.6 - 1.0 / 0.6 - 0.9 cm LVPW Diastolic Thickness 1.2 cm 0.6 - 1.0 / 0.6 - 0.9 cm LV Relative Wall Thickness 0.6 LVOT Diameter 1.5 cm Aortic Root Diameter 2.5 cm M-MODE AV Cusp Separation MM 2.1 cm DOPPLER AV Peak Velocity 131.0 cm/s AV Peak Gradient 6.9 mmHg AV Mean Gradient 4.0 mmHg AV Velocity Time Integral 23.7 cm LVOT Peak Velocity 107.0 cm/s LVOT Peak Gradient 4.6 mmHg LVOT Velocity Time Integral 21.7 cm AV Area Cont Eq vti 1.6 cm AV Area Cont Eq pk 1.4 cm Mitral E Point Velocity 88.8 cm/s Mitral A Point Velocity 80.0 cm/s Mitral E to A Ratio 1.1 PV Peak Velocity 61.7 cm/s PV Peak Gradient 1.5 mmHg FINDINGS LEFT VENTRICLE Normal left ventricular size. Mild concentric left ventricular hypertrophy. In limited views, the left ventricular systolic function is mildly reduced with an estimated ejectio n fraction in the range of 45-50%. There was limited left ventricular wall motion assessment due to poor endocardial visualization. RIGHT VENTRICLE Normal right ventricular size and systolic function. LEFT ATRIUM The left atrial size is mildly dilated. RIGHT ATRIUM The right atrial size is normal. ATRIAL SEPTUM The interatrial septum not well visualized. AORTA The aortic root and proximal ascending aorta are not well visualized. MITRAL VALVE Mitral annular calcification is present. Mild mitral valve regurgitation. No mitral valve stenosis. AORTIC VALVE No noted aortic valve stenosis or regurgitation. TRICUSPID VALVE Grossly normal tricuspid valve. There is trace tricuspid valve regurgitation. No tricuspid valve stenosis. PULMONARY VALVE The pulmonary valve is not well visualized. VESSELS The inferior vena cava was not well visualized. PERICARDIUM No pericardial effusion. Hemanth Cole DO (Electronically Signed) Final Date:21 April 2017 16:00
[2017-04-21] MEDS: SODIUM CHLORIDE 23.4% INJ 38.5 MEQ, SODIUM BICARBONATE 8.4% INJ 100 MEQ in WATER STERIL... IV SCH (18:17)
--- NOTE | 2017-04-21 19:23 | RADRPT ---
EXAM DATE/TIME: 04/21/2017 17:11 [facility] COMPARISON: No previous studies available for comparison. INDICATIONS : Increased BUN/Creatinine. MEDICAL HISTORY : Hypercholesterolemia. Hypertension. Gastroesophageal reflux disease. Hypothyroidism. CVA. CHF. Diabet es, type 2. Anemia. SURGICAL HISTORY : Appendectomy. section. ENCOUNTER: Initial ACUITY: 1 day PAIN SCORE: 3/10 LOCATION: Bilateral flank MEASUREMENTS: RIGHT KIDNEY: 10.3 x 4.4 x 5.1 cm LEFT KIDNEY: 10.3 x 3.9 x 5.1 cm FINDINGS: RIGHT KIDNEY: Renal cortex is normal in thickness and echotexture. No hydronephrosis, stone, or mass. LEFT KIDNEY: Renal cortex is normal in thickness and echotexture. No hydronephrosis, is identified. Calcification measuring 11 x 3 x 7 mm noted laterally . Cyst midpole measuring 2.0 x 1.9 x 1.5 cm BLADDER: Within normal limits given the degree of distension. CONCLUSION: Stone in the lateral left kidney. No evidence of hydronephrosis or solid mass. No evidence of obstruc tion. Kirill Linder MD on April 21, 2017 at 19:19 Board Certified Radiologist. This report was verified electronically.
[2017-04-21 19:34] LABS: APTT (PATIENT) 44.4 SEC (24.3-30.1)
[2017-04-21 19:56] LABS: HDL CHOLESTEROL 59.2 MG/DL (40.0-60.0); TOTAL PROTEIN SPE 5.9 GM/DL (6.0-7.6)
[2017-04-21] MEDS: ATORVASTATIN 10 MG TAB PO SCH (21:30)
[2017-04-21] MEDS: TEMAZEPAM 15 MG CAP PO PRN (21:30)
[2017-04-22] VITALS (12 sets, daily range): BP systolic 115–176; BP diastolic 56–80; PULSE 70–96; RESP 16–29; TEMP 97.2–98.6; O2SAT 92–99
--- NOTE | 2017-04-22 03:13 | RADRPT ---
EXAM DATE/TIME: 04/22/2017 02:19 [facility] COMPARISON: CHEST SINGLE AP, April 21, 2017, 4:49. INDICATIONS : Shortness of breath, possible pulmonary disease. MEDICAL HISTORY : Congestive heart failure. SURGICAL HISTORY : None. ENCOUNTER: Subsequent ACUITY: 2 days PAIN SCORE: 0/10 LOCATION: Bilateral chest FINDINGS: Single AP view of the chest. The lungs are clear. Cardiomediastinal silhouette within normal limits. No evidence of pleural effusion or pneumothorax. CONCLUSION: No acute cardiopulmonary disease identified. Trevor Townsend MD on April 22, 2017 at 3:11 Board Certified Radiologist. This report was verified electronically.
[2017-04-22] MEDS: RESP: ALBUTEROL 2.5 MG/IPRATROPIUM 0.5 MG NEB (SCH) INH ×4 (03:50→21:16)
[2017-04-22] MEDS: INSULIN ASPART SUPPLEMENTAL SCALE SQ SCH ×7 (04:00→23:53)
[2017-04-22] MEDS: CHLORHEXIDINE GLUCONATE 2 % 1 PACK (2 CLOTHS) TOP SCH (04:00)
[2017-04-22] MEDS: LEVOTHYROXINE SODIUM 50 MCG TAB PO SCH (05:19)
[2017-04-22 05:26] LABS: AUTOMATED NEUTROPHIL # 8.1 TH/MM3 (1.8-7.7); BASOPHIL % 0.2 % (0.0-2.0); EOSINOPHIL % 0.4 % (0.0-4.0); HEMATOCRIT 31.1 % (35.0-46.0); HEMO FLAGS DIFF FINAL; LYMPH % 3.7 % (9.0-44.0); LYMPHOCYTE # 0.3 TH/MM3 (1.0-4.8); MEAN CELL VOLUME 101.9 FL (80.0-100.0); MEAN CORPUSCULAR HEMOGLOBIN 33.2 PG (27.0-34.0); MEAN CORPUSCULAR HGB CONC 32.6 % (32.0-36.0); MONO % 1.2 % (0.0-8.0); NEUT % 94.5 % (16.0-70.0); PLATELET COUNT 137 TH/MM3 (150-450); RED BLOOD COUNT 3.05 MIL/MM3 (4.00-5.30); WHITE BLOOD COUNT 8.6 TH/MM3 (4.0-11.0)
[2017-04-22 05:39] LABS: APTT (PATIENT) 53.2 SEC (24.3-30.1)
[2017-04-22 06:10] LABS: CALCIUM-PROTEIN CORRECTED 7.9 MG/DL (8.5-10.1); TOTAL BILIRUBIN ADULT 0.3 MG/DL (0.2-1.0)
[2017-04-22 07:59] LABS: URINE TOTAL PROTEIN TIMED 400.1 MG/DL
[2017-04-22] MEDS: DOCUSATE SODIUM 50 MG/SENNA 8.6 MG TAB PO SCH ×2 (08:20→21:00)
[2017-04-22] MEDS: PANTOPRAZOLE SODIUM 40 MG VIAL IV PUSH SCH (08:20)
[2017-04-22] MEDS: SODIUM CHLORIDE 0.9% FLUSH 10 ML FLUSH IV FLUSH SCH ×2 (08:21→21:10)
[2017-04-22] MEDS: ASPIRIN 81 MG CHEW TAB CHEW SCH (08:21)
[2017-04-22] MEDS: methylPREDNISolone SOD SUCC 125 MG/2 ML VIAL IV PUSH SCH ×2 (08:21→21:10)
[2017-04-22] MEDS: CYANOCOBALAMIN 1,000 MCG TAB PO SCH (08:21)
[2017-04-22] MEDS: CARVEDILOL 3.125 MG TAB PO SCH ×2 (08:21→21:10)
[2017-04-22] MEDS ORDERED: CALCIUM GLUCONATE 10% 1 GM/10 ML VIAL IV PUSH ONE ×2 (09:15→10:00)
[2017-04-22] MEDS ORDERED: DEXTROSE 50% IN WATER 50 ML VIAL(D50) IV PUSH ONE ×2 (09:15→10:00)
[2017-04-22] MEDS ORDERED: SODIUM POLYSTYRENE SULFONATE SUSP 15 GM/60 ML CUP PO ONE (10:00)
[2017-04-22] MEDS ORDERED: INSULIN HUMAN REGULAR 1,000 UNITS/10 ML VIAL IV PUSH ONE (10:00)
--- NOTE | 2017-04-22 11:15 | HHI.NPPN ---
Subjective History of Present Illness 61 y/o female patient with a hx of DM II, HTN, suspected underlying diabetic nephropathy with a baseline creatinine of 2.87, GFR 17 from this February. Additional Remarks Patient is alert, has mild SOB, no chest pain. Review of Systems General Constitutional: Fatigue Respiratory Lungs: SOB Cardiovascular Cardiac: Chest Pain, HAIR Objective Data Data Vital Signs Date Time Temp Pulse Resp B/P (MAP) Pulse Ox O2 Delivery O2 Flow Rate FiO2 04/22/17 10:01 99 Nasal Cannula 2.00 04/22/17 04:00 98.4 78 16 123/58 (79) 93 04/22/17 03:51 98 Nasal Cannula 2.00 04/22/17 00:00 70 04/22/17 00:00 97.2 71 28 119/56 (77) 95 04/21/17 20:30 97 04/21/17 20:00 80 04/21/17 20:00 Nasal Cannula 2.00 04/21/17 20:00 97.6 77 22 131/61 (84) 95 04/21/17 18:00 90 04/21/17 16:00 90 04/21/17 15:00 98.3 85 16 123/80 (94) 96 04/21/17 15:00 86 04/21/17 14:00 90 04/21/17 12:00 90 -: 04/22/17 0512 04/22/17 0512 Physical Exam General Appearance: No Acute Distress, Comfortable Eyes Eye Exam: Pupils Equal Throat Throat Exam: Oral Mucosa Gerlach & Moist Neck Neck Exam: Neck Supple Pulmonary Resp Exam: No Distress, Crackles, Rhonchi, Sputum, Decreased Bases, Diminished Breath Sounds Cardiology CV Exam: Regular, Normal Sinus Rhythm Gastrointestinal/Abdomen GI Exam: Soft, Non-Tender, Bowel Sounds Present, Distended Extremeties Extremities Exam: Trace Edema Neurologic Neuro Exam: Alert, Awake, Oriented Psychiatric Psych Exam: Appropriate Responses Assessment/Plan Problem List: (1) Acute on chronic kidney failure ICD Codes: N17.9 - Acute kidney failure, unspecified; N18.9 - Chronic kidney disease, unspecified Status: Acute Plan: She has advanced renal disease,Creatinine 2.8 at baseline Suspected underlying diabetic nephropathy, with 7.5 grams proteinuria LEEANN may due to NSTEMI, possibly sepsis syndrome Hyperkalemic with metabolic acidosis, see below Change IVF to contain bicarb She has a Adan catheter, can remove in next day or two Monitor urine output, is borderline oliguric currently Quantify proteinuria, obtain MIGUE, ANCA panel are pending, complement levels normal, hepatitis profile, serum protein electrophorus, urine immunofixation are all pending. Creatinine increase and K is 6.0. Need to start on HD. Heparin is on hold, to get Vascath and start HD. D/W pavithra patient and in detail. (2) DM2 (diabetes mellitus, type 2) ICD Codes: E11.9 - Type 2 diabetes mellitus without complications Status: Chronic Plan: Insulin as needed, goal 140-180 mg/dL while hospitalized (3) NSTEMI (non-ST elevated myocardial infarction) ICD Codes: I21.4 - Non-ST elevation (NSTEMI) myocardial infarction Status: Acute Plan: Cardiology is following On Nitro and heparin gtt 2D echo ordered appreciate further recommendations (4) Hyperkalemia ICD Codes: E87.5 - Hyperkalemia; N18.9 - Chronic kidney disease, unspecified Status: Acute Plan: Due to reduction in GFR and metabolic acidosis Given Kayexalate, start bicarb gtt Repeat labs in AM (5) Metabolic acidosis ICD Codes: E87.2 - Acidosis Plan: Bicarb gtt (1/ NS with 100 mEq at 50 cc/hr) Follow metabolic profile Problem Qualifiers (1) Acute on chronic kidney failure: Qualified Codes: N17.9 - Acute kidney failure, unspecified; N18.9 - Chronic kidney disease, unspecified (2) DM2 (diabetes mellitus, type 2): Juan Michaud MD Apr 22, 2017 11:15
--- NOTE | 2017-04-22 11:20 | HHI.CCPN ---
Subjective Remarks/Hospital Course 61 year old female with PMH of DM, HTN, hypothyroidism, CKD, COPD, anemia presented to the ED with complaints of generalized body pain predominantly chest pain. Complains of having cough, generalized aches, intermittent vomiting , nausea, diarrhea for about 5 days. Recently had been diagnosed with pneumonia had been placed on Z-Caleb. ER workup including EKG showed nonspecific ST-T wave changes possible ischemia. Chest x-ray showed mild left lower lobe atelectasis. Lab work showed leukocytosis at 12.2, potassium 5.5. Creatinine was 5.89 compared to 2.87 from 03/14/17. Troponin elevated at 7.85. Dr. Barrios discussed with stonework tracer meter and service line inspector Dr. Tiwari. Patient started on aspirin, heparin. I evaluated the patient ICU. She appears in moderate distress. Exam reveals bilateral wheezing. I have started her on IV Solu-Medrol and scheduled DuoNeb. We'll place on Levaquin for COPD exacerbation. Medical management for an STEMI, may need cardiac catheterization at a later time. Nephrology consult also placed 04/22: Worsening BUN/creatinine now 94/6.5. Yesterday was 76/5.9. Hypokalemic potassium at 6. We'll start hemodialysis today. Denies active chest pain off nitro drip Objective Vital Signs Date Time Temp Pulse Resp B/P (MAP) Pulse Ox O2 Delivery O2 Flow Rate FiO2 04/22/17 10:01 99 Nasal Cannula 2.00 04/22/17 04:00 98.4 78 16 123/58 (79) Intake and Output 04/22/17 04/22/17 04/23/17 08:00 16:00 00:00 Intake Total 420 ml Output Total 300 ml Balance 120 ml Result Diagram: 04/22/1751104/22/17 0512 Other Results Microbiology Date/Time Source Procedure Growth Status 04/21/17 04:40 Nasal Aspirate Influenza Types A,B Antigen (CHUCK) - Final NEGATIVE FOR FLU A AND B ANTIGEN.... Complete Imaging CXR Mild L base atelectasis Objective Remarks GENERAL:elderly female in mild distress. SKIN: Skin dry. HEAD: Atraumatic. Normocephalic. EYES: Pupils equal and round. No scleral icterus. No injection or drainage. ENT: Air way patent NECK: Trachea midline. No JVD. CARDIOVASCULAR: Regular rate and rhythm. No murmur appreciated. RESPIRATORY: Expiratory wheezing bilaterally. No crackles GASTROINTESTINAL: Abdomen soft, non-tender, nondistended. MUSCULOSKELETAL: Status post right third toe amputation NEUROLOGICAL: Awake and alert. No obvious cranial nerve deficits. Motor grossly within normal limits. Normal speech. A/P Assessment and Plan NEURO: - Minimize sedation, as needed morphine for pain RESP: Acute COPD exacerbation Tobacco abuse - Nasal cannula oxygen to keep saturation more than 90% - DuoNeb every 6 hours scheduled and when necessary - IV Solu-Medrol 60 mg every 12 hours - Empiric Levaquin CV: NSTEMI - Continue aspirin, IV heparin and Coreg 3.125 mg twice a day - Continue home Lipitor - s/p Normal saline 1 L bolus and maintenance at 84 mL per hour - 2d echo EF 45-50% - cardiology consult Dr. Douglas Thakur next week GI: History of gastric ulcer - Start heart healthy renal diet once medically stable. IV famotidine : Acute on chronic kidney disease - Monitor renal function closely. Adan catheter. - Nephrology consult. Renal US. Further workup for nephrology - Worsening BUN/creatinine and potassium start hemodialysis today ID: - Monitor for infection, empiric Levaquin HEME: - Monitor CBC, CMP, coags ENDO: - Received Kayexalate for hyperkalemia in the ED - Start HD today PROPH: - Bilateral lower extremity SCDs. IV Heparin, IV Famotidine LINES: - Utilize peripheral IVs, central line if needed Level3 Patient transferred to service. Transfer to [facility]. [facility] will follow as needed Mohamud Allison MD Apr 22, 2017 11:20
--- NOTE | 2017-04-22 11:40 | PD.CARD.PN ---
Subjective Subjective Remarks No further chest pain/SOB Doing well right now Off nitro drip Objective Medications Current Medications Medications (Trade) Dose Ordered Sig/Des Route Start Time Stop Time Status Last Admin (Heparin Inj) 5,000 units UNSCH PRN IV PUSH 04/21/17 11:45 (Heparin Inj) 2,500 units UNSCH PRN IV PUSH 04/21/17 11:45 Heparin Sodium/ Dextrose 250 ml @ 9 mls/hr TITRATE PRN IV 04/21/17 05:45 04/21/17 06:08 (NS Flush) 2 ml UNSCH PRN IV FLUSH 04/21/17 06:45 (NS Flush) 2 ml BID IV FLUSH 04/21/17 09:00 04/22/17 08:21 (Protonix Inj) 40 mg DAILY IV PUSH 04/21/17 09:00 04/22/17 08:20 (Duoneb Neb) 1 ampule Q6HR NEB INH 04/21/17 10:00 04/22/17 10:01 (Duoneb Neb) 1 ampule Q4HR NEB PRN INH 04/21/17 06:45 Miscellaneous Information 1 Q361D XX 04/21/17 06:45 (Chlorhexidine 2% Cloth) 3 pack Taper DAILY@04 TOP 04/22/17 04:00 04/18/18 03:59 04/22/17 04:00 (Chlorhexidine 2% Cloth) 3 pack UNSCH PRN TOP 04/21/17 06:45 (Malaika-Colace) 1 tab BID PO 04/21/17 09:00 04/22/17 08:20 (Milk Of Magnesia Liq) 30 ml Q12H PRN PO 04/21/17 06:45 (Senokot) 17.2 mg Q12H PRN PO 04/21/17 06:45 (Dulcolax Supp) 10 mg DAILY PRN RECTAL 04/21/17 06:45 (Lactulose Liq) 30 ml DAILY PRN PO 04/21/17 06:45 (Aspirin Chew) 81 mg DAILY CHEW 04/22/17 09:00 04/22/17 08:21 (Coreg) 3.125 mg Q12HR PO 04/21/17 09:00 04/22/17 08:21 (Lipitor) 10 mg HS PO 04/21/17 21:00 04/21/17 21:30 (Vitamin B12) 500 mcg DAILY PO 04/21/17 09:00 04/22/17 08:21 (Synthroid) 50 mcg DAILY@0600 PO 04/21/17 07:00 04/22/17 05:19 (NovoLOG SUPPLEMENTAL SCALE) 1 Q4HR SQ 04/21/17 08:00 04/21/17 20:00 (SoluMEDROL INJ) 60 mg Q12HR IV PUSH 04/21/17 11:30 04/22/17 08:21 Levofloxacin/ Dextrose 100 ml @ 100 mls/hr Q48H IV 04/21/17 12:00 04/21/17 13:21 Sodium Chloride 38.5 meq/Sodium Bicarbonate 100 meq/Sterile Water 1,109.625 ml @ 50 mls/hr [id number] IV 04/21/17 17:00 04/21/17 18:17 (Restoril) 15 mg HS PRN PO 04/21/17 20:45 04/21/17 21:30 Vital Signs / I&O Vital Signs Date Time Temp Pulse Resp B/P (MAP) Pulse Ox O2 Delivery O2 Flow Rate FiO2 04/22/17 10:01 99 Nasal Cannula 2.00 04/22/17 04:00 98.4 78 16 123/58 (79) 93 04/22/17 03:51 98 Nasal Cannula 2.00 04/22/17 00:00 70 04/22/17 00:00 97.2 71 28 119/56 (77) 95 04/21/17 20:30 97 04/21/17 20:00 80 04/21/17 20:00 Nasal Cannula 2.00 04/21/17 20:00 97.6 77 22 131/61 (84) 95 04/21/17 18:00 90 04/21/17 16:00 90 04/21/17 15:00 98.3 85 16 123/80 (94) 96 04/21/17 15:00 86 04/21/17 14:00 90 04/21/17 12:00 90 I/O 04/21/17 04/21/17 04/21/17 04/22/17 04/22/17 04/22/17 07:00 15:00 23:00 07:00 15:00 23:00 Intake Total 1000 ml 376 ml 420 ml Output Total 600 ml 300 ml Balance 1000 ml -224 ml 120 ml Intake Oral 240 ml 420 ml IV Total 1000 ml 136 ml Output Urine Total 600 ml 300 ml # Bowel Movements 0 Physical Exam GENERAL: NAD, AAOx3 SKIN: Warm and dry. HEAD: Atraumatic. Normocephalic. EYES: Pupils equal and round. No scleral icterus. No injection or drainage. ENT: No nasal bleeding or discharge. Mucous membranes pink and moist. NECK: Trachea midline. No JVD. CARDIOVASCULAR: Regular rate and rhythm. RESPIRATORY: No accessory muscle use. Clear to auscultation. Breath sounds equal bilaterally. GASTROINTESTINAL: Abdomen soft, non-tender, nondistended. Hepatic and splenic margins not palpable. MUSCULOSKELETAL: Extremities without clubbing, cyanosis, or edema. No obvious deformities. NEUROLOGICAL: Awake and alert. No obvious cranial nerve deficits. Motor grossly within normal limits. Five out of 5 muscle strength in the arms and legs. Normal speech. PSYCHIATRIC: Appropriate mood and affect; insight and judgment normal. Laboratory Laboratory Tests Test 04/21/17 18:44 04/22/17 05:12 Activated Partial Thromboplast Time 44.4 SEC 53.2 SEC Troponin I 6.81 NG/ML Total Protein 5.9 GM/DL 6.0 GM/DL Triglycerides Level 85 MG/DL Cholesterol Level 114 MG/DL LDL Cholesterol 38 MG/DL HDL Cholesterol 59.2 MG/DL Cholesterol/HDL Ratio 1.92 RATIO Complement C3 98 MG/DL Complement C4 32 MG/DL White Blood Count 8.6 TH/MM3 Red Blood Count 3.05 MIL/MM3 Hemoglobin 10.1 GM/DL Hematocrit 31.1 % Mean Corpuscular Volume 101.9 FL Mean Corpuscular Hemoglobin 33.2 PG Mean Corpuscular Hemoglobin Concent 32.6 % Red Cell Distribution Width 13.0 % Platelet Count 137 TH/MM3 Mean Platelet Volume 9.2 FL Neutrophils (%) (Auto) 94.5 % Lymphocytes (%) (Auto) 3.7 % Monocytes (%) (Auto) 1.2 % Eosinophils (%) (Auto) 0.4 % Basophils (%) (Auto) 0.2 % Neutrophils # (Auto) 8.1 TH/MM3 Lymphocytes # (Auto) 0.3 TH/MM3 Monocytes # (Auto) 0.1 TH/MM3 Eosinophils # (Auto) 0.0 TH/MM3 Basophils # (Auto) 0.0 TH/MM3 CBC Comment DIFF FINAL Differential Comment Blood Urea Nitrogen 94 MG/DL Creatinine 6.55 MG/DL Random Glucose 127 MG/DL Albumin 2.1 GM/DL Calcium Level 7.3 MG/DL Alkaline Phosphatase 86 U/L Aspartate Amino Transf (AST/SGOT) 36 U/L Alanine Aminotransferase (ALT/SGPT) 21 U/L Total Bilirubin 0.3 MG/DL Sodium Level 127 MEQ/L Potassium Level 6.0 MEQ/L Chloride Level 99 MEQ/L Carbon Dioxide Level 15.0 MEQ/L Anion Gap 13 MEQ/L Estimat Glomerular Filtration Rate 6 ML/MIN Protein Corrected Calcium 7.9 MG/DL Imaging Last 24 hours Impressions Chest X-Ray 04/22/17 0600 Signed Impressions: Service Date/Time: Monday, April 22, 2017 02:19 - CONCLUSION: No acute cardiopulmonary disease identified. Trevor Townsend MD Assessment and Plan Problem List: (1) NSTEMI (non-ST elevated myocardial infarction) ICD Codes: I21.4 - Non-ST elevation (NSTEMI) myocardial infarction Status: Acute (2) Acute on chronic kidney failure ICD Codes: N17.9 - Acute kidney failure, unspecified; N18.9 - Chronic kidney disease, unspecified Status: Acute (3) HTN (hypertension) ICD Codes: I10 - HTN (hypertension) Status: Chronic (4) HLD (hyperlipidemia) ICD Codes: E78.5 - HLD (hyperlipidemia) Status: Chronic (5) Anemia ICD Codes: D64.9 - Anemia, unspecified Status: Acute Assessment and Plan 1) NSTEMI Con't medical management for now ASA/BB/Statin 2) LEEANN on CKD Plan for HD 3) If placed on HD, will plan on cardiac catheterization this week 4) Chest pain very atypical, appears with a cough and eating, but concern for high troponin level Problem Qualifiers (1) Acute on chronic kidney failure: Qualified Codes: N17.9 - Acute kidney failure, unspecified; N18.9 - Chronic kidney disease, unspecified (2) HTN (hypertension): Qualified Codes: I10 - Essential (primary) hypertension (3) HLD (hyperlipidemia): Qualified Codes: E78.5 - Hyperlipidemia, unspecified (4) Anemia: Qualified Codes: D64.9 - Anemia, unspecified Hemanth Cole DO Apr 22, 2017 11:40
[2017-04-22 13:06] LABS: HEMATOCRIT 31.3 % (35.0-46.0); MEAN CELL VOLUME 101.8 FL (80.0-100.0); MEAN CORPUSCULAR HEMOGLOBIN 33.3 PG (27.0-34.0); MEAN CORPUSCULAR HGB CONC 32.7 % (32.0-36.0); PLATELET COUNT 154 TH/MM3 (150-450); RED BLOOD COUNT 3.07 MIL/MM3 (4.00-5.30); RED CELL DISTRIBUTION WIDTH 13.1 % (11.6-17.2); REVIEW FLAG FINAL; WHITE BLOOD COUNT 8.5 TH/MM3 (4.0-11.0)
--- NOTE | 2017-04-22 13:08 | HHI.FPPN ---
Subjective Remarks 61 yo female presented with shortness of breath, coughing, wheezing, chest pain , found to have NSTEMI, COPD exacerbation, acute renal failure, acute electrolyte/metabolic disturbance. Care initially assumed by hollow handle knife assembler, now being transferred to the primary care team. Cardiology and nephrology are also on board. Her NSTEMI is being managed medically due to acute kidney failure with heparin drip, aspirin, statin, beta dayami. There are plans for her to undergo catheterization when her renal function is stable. Due to acute electrolyte disturbances, particularly hyperkalemia, she is requiring initiation of hemodialysis. This morning, her chest pain is resolved. The nitro drip is going to be discontinued today. She has wheezing and shortness of breath but they are improving with DuoNeb treatments, SoluMedrol, and Levaquin. She was started on Azithromycin for assumed pneumonia [place] cruise [place] before admission. She has no abdominal pain, nausea, vomiting, or diarrhea. She has no calf swelling or tenderness. She does not feel anxious this morning. She has no diaphoresis. She does have mild lightheadedness but it is improving. (Clifford Bedolla MD R3) Objective Vitals Vital Signs Date Time Temp Pulse Resp B/P (MAP) Pulse Ox O2 Delivery O2 Flow Rate FiO2 04/22/17 10:01 99 Nasal Cannula 2.00 04/22/17 07:00 95 Nasal Cannula 2.00 04/22/17 04:00 98.4 78 16 123/58 (79) 93 04/22/17 03:51 98 Nasal Cannula 2.00 04/22/17 00:00 70 04/22/17 00:00 97.2 71 28 119/56 (77) 95 04/21/17 20:30 97 04/21/17 20:00 80 04/21/17 20:00 Nasal Cannula 2.00 04/21/17 20:00 97.6 77 22 131/61 (84) 95 04/21/17 18:00 90 04/21/17 16:00 90 04/21/17 15:00 98.3 85 16 123/80 (94) 96 04/21/17 15:00 86 04/21/17 14:00 90 I/O 04/21/17 04/21/17 04/21/17 04/22/17 04/22/17 04/22/17 07:00 15:00 23:00 07:00 15:00 23:00 Intake Total 1000 ml 376 ml 420 ml Output Total 600 ml 300 ml Balance 1000 ml -224 ml 120 ml Intake Oral 240 ml 420 ml IV Total 1000 ml 136 ml Output Urine Total 600 ml 300 ml # Bowel Movements 0 (Clifford Bedolla MD R3) Result Diagram: 04/22/17 0512 04/22/17 0512 Imaging Last 72 hours Impressions Chest X-Ray 04/22/17 0600 Signed Impressions: Service Date/Time: Saturday, April 22, 2017 02:19 - CONCLUSION: No acute cardiopulmonary disease identified. Trevor Townsend MD Chest X-Ray 04/21/17 0425 Signed Impressions: Service Date/Time: Friday, April 21, 2017 04:49 - CONCLUSION: Trace left base atelectasis. Keegan Dobbs MD Renal Ultrasound 04/21/17 0000 Signed Impressions: Service Date/Time: Friday, April 21, 2017 17:11 - CONCLUSION: Stone in the lateral left kidney. No evidence of hydronephrosis or solid mass. No evidence of obstruction. Kirill Linder MD Objective Remarks General: Sitting up in bed, no distress, not diaphoretic Skin: No rashes or lesions HEENT: Normocephalic, no nasal discharge Neck: No JVD, trachea midline CV: RRR, no murmurs, rubs, or gallops, pulses regular Lungs: Wheezing, more in the bases, no consolidations Abdomen: Soft, nontender, non-distended, normal bowel sounds MSK right third toe amputated, no swelling or tenderness Neuro: Awake, alert, not in distress, not anxious appearing, normal speech Procedures Vascath 04/22/17 Initiate hemodialysis 04/22/17 (Clifford Bedolla MD R3) A/P Assessment and Plan 61 yo female with NSTEMI, acute COPD exacerbation, acute renal failure with chronic renal disease, acute hyperkalemia and hyponatremia, metabolic acidosis, requiring hemodialysis. Care transferred from hollow handle knife assembler to primary care team on 04/22/17. Cardiology and nephrology on board. Discharge Planning Pending stable clinical status (Clifford Bedolla MD R3) Attending Attestation Medical rounds were performed with Dr Urmila Bedolla, Patients admission and hospital course were discussed in detail, Patient was seen and examined, Agree with the contents of this note, See Orders. (Juan Luis Flowers MD) Problem List: (1) NSTEMI (non-ST elevated myocardial infarction) ICD Codes: I21.4 - Non-ST elevation (NSTEMI) myocardial infarction Status: Acute Plan: Troponin elevated at admission along with atypical chest pain. Non- specific ST-T wave changes on initial EKG's. ECHO with EF of 45-50% - Cardiology on board - Nitro drip, managed per cardiology, will d/c today due to resolved chest pain - Heparin drip, managed per cardiology - Continue aspirin 81 mg daily - Continue Lipitor 10 mg qHS - Continue Coreg 3.125 mg bid - Cardiac catheterization when renal function improved (2) Acute on chronic kidney failure ICD Codes: N17.9 - Acute kidney failure, unspecified; N18.9 - Chronic kidney disease, unspecified Status: Acute Plan: Has a history of diabetes with diabetic nephropathy. Has proteinuria and oliguria with acute decrease in renal function. Her baseline creatinine is about 2.8, now with doubling of creatinine. Also with hyperkalemia and metabolic acidosis. Etiology includes chronic kidney disease with acute exacerbation possibly from poor cardiac output with NSTEMI. Renal ultrasound showing no obstruction, has stone that is non-obstructing. - Nephrology on board, appreciate assistance. - Receiving bicarbonate infusion for metabolic acidosis secondary to renal disease. - Monitor urine output, intake/output - Workup including MIGUE, ANCA, complement profile, hepatitis profile, SPEP, UPEP. - Nephrology will start patient on hemodialysis due to acute hyperkalemia with worsening renal function. - Avoid nephrotoxic agents, contrast agents. - Remove Adan catheter once stable (3) COPD (chronic obstructive pulmonary disease) ICD Codes: J44.9 - Chronic obstructive pulmonary disease, unspecified Status: Chronic Plan: History of COPD with recent upper respiratory symptoms and acute exacerbation, recently diagnosed with pneumonia while on cruise ship and was started on azithromycin. - IV Solumedrol 60 mg q12hrs started 04/21 - DuoNebs q6hrs scheduled - Levaquin empirically, renally dosed, started 04/22 - O2 supplementation with target O2 90% (4) Hyperkalemia ICD Codes: E87.5 - Hyperkalemia; N18.9 - Chronic kidney disease, unspecified Status: Resolved Plan: Hyperkalemia up to 6.0 with acute renal failure. - Stat and serial EKG's, continuous cardiac monitoring - Received calcium gluconate - Received regular insulin with D50W, monitor glucoses hourly until stable - Monitor electrolytes closely - Getting hemodialysis per nephrology for acute hyperkalemia and worsening renal function - Continue Kayexelate - Bicarbonate drip for metabolic acidosis (5) Hyponatremia ICD Codes: E87.1 - Hypo-osmolality and hyponatremia Status: Resolved Plan: Hyponatremia with acute renal failure, asymptomatic - Free water restriction until sodium improved - Hypertonic saline only if symptomatic or severe - Monitor electrolytes (6) DM2 (diabetes mellitus, type 2) ICD Codes: E11.9 - Type 2 diabetes mellitus without complications Status: Chronic Plan: History of diabetes type II - Sliding scale insulin with glucose goal of 140-180 (7) HTN (hypertension) ICD Codes: I10 - HTN (hypertension) Status: Chronic Plan: - Continue carvedilol 3.125 bid (8) Hypothyroidism ICD Codes: E03.9 - Hypothyroidism, unspecified Status: Chronic Plan: - Levothyroxine 50 mcg daily - Check TSH (9) Nutrition, metabolism, and development symptoms ICD Codes: R63.8 - Other symptoms and signs concerning food and fluid intake Status: Acute Plan: Heart healthy/renal diet 1L free water restriction Hyponatremia, hyperkalemia Receiving dialysis Acute renal failure with CKD, monitor renal function Protonix IV 40 mg daily, can discontinue when out of ICU (10) No contraindication to deep vein thrombosis (DVT) prophylaxis ICD Codes: Z78.9 - Other specified health status Status: Acute Plan: On heparin drip for NSTEMI (Clifford Bedolla MD R3) Problem Qualifiers (1) Acute on chronic kidney failure: Qualified Codes: N17.9 - Acute kidney failure, unspecified; N18.9 - Chronic kidney disease, unspecified (2) DM2 (diabetes mellitus, type 2): (3) HTN (hypertension): Qualified Codes: I10 - Essential (primary) hypertension (4) Hypothyroidism: Qualified Codes: E03.9 - Hypothyroidism, unspecified Clifford Bedolla MD R3 Apr 22, 2017 13:08 Juan Luis Flowers MD Apr 26, 2017 14:05
[2017-04-22 13:20] LABS: APTT (PATIENT) 30.2 SEC (24.3-30.1)
[2017-04-22 13:25] LABS: POTASSIUM 6.1 MEQ/L (3.5-5.1)
[2017-04-22] MEDS ORDERED: SODIUM CHLOR 0.9% 1000 ML INJ 1,000 ML IV PRN (14:04)
[2017-04-22] MEDS ORDERED: SODIUM CHLOR 0.9% 1000 ML INJ 1,000 ML OTHER PRN ×2 (14:04)
[2017-04-22] MEDS ORDERED: MORPHINE SULFATE 2 MG/ML INJ ONE (14:06)
[2017-04-22] MEDS ORDERED: LORazepam 2 MG/ML VIAL ONE (14:07)
[2017-04-22] MEDS ORDERED: diphenhydrAMINE HCL 25 MG CAP PO PRN (14:15)
[2017-04-22] MEDS ORDERED: SODIUM CHLORIDE 0.9% FLUSH 10 ML FLUSH IV FLUSH PRN (14:15)
[2017-04-22] MEDS ORDERED: ONDANSETRON HCL 4 MG/2 ML VIAL IV PUSH PRN (14:15)
[2017-04-22] MEDS ORDERED: GELATIN 12 MM/7 MM FOAM TOP PRN (14:15)
[2017-04-22] MEDS ORDERED: MANNITOL 12.5 GM/50 ML VIAL IV PRN (14:15)
[2017-04-22] MEDS ORDERED: NITROGLYCERIN 0.4 MG SL 25 TABS/BTL SL PRN (14:15)
[2017-04-22] MEDS ORDERED: LORazepam 2 MG/ML VIAL IV ONE (14:30)
[2017-04-22] MEDS ORDERED: MORPHINE SULFATE 2 MG/ML INJ IV ONE ×2 (14:30→15:00)
--- NOTE | 2017-04-22 14:31 | PD.PROCEDR ---
Central Line Procedure REASON FOR PROCEDURE Initiate HD PROCEDURE PERFORMED Central line placement: RIJ Vasc CONSENT Informed consent for procedure was obtained and time out performed. The risks and benefits of the procedure were discussed to include but limited to bleeding , clot formation, infection, and even . ANESTHESIA Local injection of 1% Lidocaine DESCRIPTION OF THE PROCEDURE The patient was placed in supine, mild Trendelenburg position. The area was exposed and cleansed with ChloraPrep, times two. Large sterile drape was used to cover the patient, with the site exposed, under sterile conditions including cap, face mask, sterile gown, and sterile gloves. On single attempt, the introducer needle was inserted with negative pressure in syringe and venous flash was obtained. The guide wire was then advanced without any restriction and the needle was removed. The dilator was used without any complications. Using Seldinger technique the 20 CM 14F RIJ vascular catheter was advanced over the guide wire to a depth of 18 centimeters. The guide wire was removed. All ports were aspirated with dark venous blood return and flushed easily with sterile saline. All ports were capped. Antibiotic disc was placed around central line at puncture site. The central line was secured to the skin with two interrupted 2.0 silk sutures. The area was bandaged with sterile see- through central line bandage. RADIOLOGICAL DATA Ultrasound guidance was used to locate RIJ. Doppler/color flow was used to confirm venous flow. COMPLICATIONS: No apparent complications ESTIMATED BLOOD LOSS: Less than 1 cc. Mohamud Allison MD Apr 22, 2017 14:31
--- NOTE | 2017-04-22 15:06 | RADRPT ---
EXAM DATE/TIME: 04/22/2017 14:40 [facility] COMPARISON: CHEST SINGLE AP, April 22, 2017, 2:19. INDICATIONS : Post Vas Cath placement. MEDICAL HISTORY : Congestive heart failure. SURGICAL HISTORY : None. ENCOUNTER: Subsequent ACUITY: 2 days PAIN SCORE: Non-responsive. LOCATION: Bilateral chest FINDINGS: Right internal jugular vas catheter now present, tip at the atrial caval junction. There is no pneumo thorax. Lungs remain clear. Heart size normal. CONCLUSION: Right IJ line with tip at the atriocaval junction. No pneumothorax or other acute complication. Keegan Dobbs MD on April 22, 2017 at 15:03 Board Certified Radiologist. This report was verified electronically.
[2017-04-22] MEDS: SODIUM CHLORIDE 23.4% INJ 38.5 MEQ, SODIUM BICARBONATE 8.4% INJ 100 MEQ in WATER STERIL... IV SCH (15:34)
[2017-04-22] MEDS: ATORVASTATIN 10 MG TAB PO SCH (21:10)
[2017-04-22] MEDS: cloNIDine HCL 0.1 MG TAB PO PRN (21:36)
[2017-04-23] VITALS (20 sets, daily range): BP systolic 155–179; BP diastolic 67–82; PULSE 71–101; RESP 18–29; TEMP 97.4–98.5; O2SAT 91–99
[2017-04-23] MEDS: CHLORHEXIDINE GLUCONATE 2 % 1 PACK (2 CLOTHS) TOP SCH (04:00)
[2017-04-23] MEDS: INSULIN ASPART SUPPLEMENTAL SCALE SQ SCH ×5 (04:00→20:00)
[2017-04-23] MEDS: RESP: ALBUTEROL 2.5 MG/IPRATROPIUM 0.5 MG NEB (SCH) INH ×4 (04:35→21:39)
[2017-04-23] MEDS: LEVOTHYROXINE SODIUM 50 MCG TAB PO SCH (05:30)
[2017-04-23 06:10] LABS: AUTOMATED NEUTROPHIL # 8.3 TH/MM3 (1.8-7.7); BASOPHIL % 0.2 % (0.0-2.0); HEMATOCRIT 28.1 % (35.0-46.0); HEMO FLAGS DIFF FINAL; LYMPH % 3.4 % (9.0-44.0); LYMPHOCYTE # 0.3 TH/MM3 (1.0-4.8); MEAN CELL VOLUME 98.6 FL (80.0-100.0); MEAN CORPUSCULAR HEMOGLOBIN 33.2 PG (27.0-34.0); MEAN CORPUSCULAR HGB CONC 33.7 % (32.0-36.0); MONO % 3.4 % (0.0-8.0); PLATELET COUNT 159 TH/MM3 (150-450); RED BLOOD COUNT 2.85 MIL/MM3 (4.00-5.30); RED CELL DISTRIBUTION WIDTH 12.6 % (11.6-17.2); WHITE BLOOD COUNT 8.9 TH/MM3 (4.0-11.0)
[2017-04-23 06:20] LABS: APTT (PATIENT) 52.5 SEC (24.3-30.1)
[2017-04-23 06:53] LABS: BICARBONATE 22.8 MEQ/L (21.0-32.0); POTASSIUM 3.8 MEQ/L (3.5-5.1); TOTAL BILIRUBIN ADULT 0.3 MG/DL (0.2-1.0)
[2017-04-23 06:57] LABS: CALCIUM-PROTEIN CORRECTED 7.4 MG/DL (8.5-10.1)
[2017-04-23 08:13] LABS: MAGNESIUM 1.9 MG/DL (1.5-2.5)
[2017-04-23] MEDS: SODIUM CHLORIDE 0.9% FLUSH 10 ML FLUSH IV FLUSH SCH ×2 (09:00→20:52)
[2017-04-23] MEDS: PANTOPRAZOLE SODIUM 40 MG VIAL IV PUSH SCH (09:28)
[2017-04-23] MEDS: methylPREDNISolone SOD SUCC 125 MG/2 ML VIAL IV PUSH SCH ×2 (09:31→20:53)
[2017-04-23] MEDS: DOCUSATE SODIUM 50 MG/SENNA 8.6 MG TAB PO SCH ×2 (09:31→20:54)
[2017-04-23] MEDS: CYANOCOBALAMIN 1,000 MCG TAB PO SCH (09:32)
[2017-04-23] MEDS: ASPIRIN 81 MG CHEW TAB CHEW SCH (09:32)
[2017-04-23] MEDS: CARVEDILOL 3.125 MG TAB PO SCH ×2 (09:32→20:53)
--- NOTE | 2017-04-23 10:30 | PD.CARD.PN ---
Subjective Subjective Remarks No further chest pain/SOB Doing well right now Off nitro drip Dialyzed yesterday Objective Medications Current Medications Medications (Trade) Dose Ordered Sig/Des Route Start Time Stop Time Status Last Admin (Heparin Inj) 5,000 units UNSCH PRN IV PUSH 04/21/17 11:45 (Heparin Inj) 2,500 units UNSCH PRN IV PUSH 04/21/17 11:45 Heparin Sodium/ Dextrose 250 ml @ 9 mls/hr TITRATE PRN IV 04/21/17 05:45 04/21/17 06:08 (NS Flush) 2 ml UNSCH PRN IV FLUSH 04/21/17 06:45 (NS Flush) 2 ml BID IV FLUSH 04/21/17 09:00 04/23/17 09:00 (Protonix Inj) 40 mg DAILY IV PUSH 04/21/17 09:00 04/23/17 09:28 (Duoneb Neb) 1 ampule Q6HR NEB INH 04/21/17 10:00 04/23/17 04:35 (Duoneb Neb) 1 ampule Q4HR NEB PRN INH 04/21/17 06:45 Miscellaneous Information 1 Q361D XX 04/21/17 06:45 (Chlorhexidine 2% Cloth) 3 pack Taper DAILY@04 TOP 04/22/17 04:00 04/18/18 03:59 04/22/17 04:00 (Chlorhexidine 2% Cloth) 3 pack UNSCH PRN TOP 04/21/17 06:45 (Malaika-Colace) 1 tab BID PO 04/21/17 09:00 04/23/17 09:31 (Milk Of Magnesia Liq) 30 ml Q12H PRN PO 04/21/17 06:45 (Senokot) 17.2 mg Q12H PRN PO 04/21/17 06:45 (Dulcolax Supp) 10 mg DAILY PRN RECTAL 04/21/17 06:45 (Lactulose Liq) 30 ml DAILY PRN PO 04/21/17 06:45 (Aspirin Chew) 81 mg DAILY CHEW 04/22/17 09:00 04/23/17 09:32 (Coreg) 3.125 mg Q12HR PO 04/21/17 09:00 04/23/17 09:32 (Lipitor) 10 mg HS PO 04/21/17 21:00 11/4/17 21:10 (Vitamin B12) 500 mcg DAILY PO 04/21/17 09:00 04/23/17 09:32 (Synthroid) 50 mcg DAILY@0600 PO 04/21/17 07:00 04/23/17 05:30 (NovoLOG SUPPLEMENTAL SCALE) 1 Q4HR SQ 04/21/17 08:00 04/23/17 08:00 (SoluMEDROL INJ) 60 mg Q12HR IV PUSH 04/21/17 11:30 04/23/17 09:31 Levofloxacin/ Dextrose 100 ml @ 100 mls/hr Q48H IV 04/21/17 12:00 04/21/17 13:21 Sodium Chloride 38.5 meq/Sodium Bicarbonate 100 meq/Sterile Water 1,109.625 ml @ 50 mls/hr [id number] IV 04/21/17 17:00 04/22/17 15:34 (Restoril) 15 mg HS PRN PO 04/21/17 20:45 04/21/17 21:30 Sodium Chloride 1,000 ml @ 0 mls/hr Q0M PRN OTHER 04/22/17 14:04 (Heparin Inj) 8,000 units UNSCH PRN IV FLUSH 04/22/17 14:15 Sodium Chloride 1,000 ml @ 200 mls/hr Q5H PRN IV 04/22/17 14:04 Sodium Chloride 1,000 ml @ 0 mls/hr Q0M PRN OTHER 04/22/17 14:04 (Mannitol Inj) 12.5 gm UNSCH PRN IV 04/22/17 14:15 Albumin Human 100 ml @ 60 mls/hr UNSCH PRN IV 04/22/17 14:15 (NS Flush) 5 ml UNSCH PRN IV FLUSH 04/22/17 14:15 (Heparin Inj) UNSCH PRN .XX 04/22/17 14:15 (Gentamicin (Dialysis) Inj) 20 mg UNSCH PRN OTHER 04/22/17 14:15 (Zofran Inj) 4 mg UNSCH PRN IV PUSH 04/22/17 14:15 (Tylenol) 650 mg UNSCH PRN PO 04/22/17 14:15 (Benadryl) 25 mg UNSCH PRN PO 04/22/17 14:15 (Nitrostat Sl) 0.4 mg UNSCH PRN SL 04/22/17 14:15 (Catapres) 0.1 mg UNSCH PRN PO 04/22/17 14:15 04/22/17 21:36 (Gelfoam 12 Mm/7 Mm Top) 1 foam UNSCH PRN TOP 04/22/17 14:15 Vital Signs / I&O Vital Signs Date Time Temp Pulse Resp B/P (MAP) Pulse Ox O2 Delivery O2 Flow Rate FiO2 04/23/17 06:00 166/72 (103) 04/23/17 06:00 76 04/23/17 04:00 100 04/23/17 04:00 98.2 83 23 155/67 (96) 94 04/23/17 02:00 79 04/23/17 00:00 97.7 97 24 157/73 (101) 97 04/23/17 00:00 101 04/22/17 22:00 95 04/22/17 21:18 95 Nasal Cannula 2.00 04/22/17 20:00 Nasal Cannula 2.00 04/22/17 20:00 97.8 91 29 160/80 (106) 98 04/22/17 20:00 96 04/22/17 16:00 98.5 78 23 133/62 (85) 92 04/22/17 16:00 78 04/22/17 14:00 78 04/22/17 12:00 98.3 87 22 176/76 (109) 92 04/22/17 12:00 87 I/O 04/22/17 04/22/17 04/22/17 04/23/17 04/23/17 04/23/17 07:00 15:00 23:00 07:00 15:00 23:00 Intake Total 420 ml 967 ml Output Total 300 ml 850 ml Balance 120 ml 117 ml Intake Oral 420 ml 240 ml IV Total 727 ml Output Urine Total 300 ml 850 ml # Bowel Movements 0 3 Physical Exam GENERAL: NAD, AAOx3 SKIN: Warm and dry. HEAD: Atraumatic. Normocephalic. EYES: Pupils equal and round. No scleral icterus. No injection or drainage. ENT: No nasal bleeding or discharge. Mucous membranes pink and moist. NECK: Trachea midline. No JVD. CARDIOVASCULAR: Regular rate and rhythm. RESPIRATORY: No accessory muscle use. Clear to auscultation. Breath sounds equal bilaterally. GASTROINTESTINAL: Abdomen soft, non-tender, nondistended. Hepatic and splenic margins not palpable. MUSCULOSKELETAL: Extremities without clubbing, cyanosis, or edema. No obvious deformities. NEUROLOGICAL: Awake and alert. No obvious cranial nerve deficits. Motor grossly within normal limits. Five out of 5 muscle strength in the arms and legs. Normal speech. PSYCHIATRIC: Appropriate mood and affect; insight and judgment normal. Laboratory Laboratory Tests Test 04/22/17 11:30 04/23/17 04:25 White Blood Count 8.5 TH/MM3 8.9 TH/MM3 Red Blood Count 3.07 MIL/MM3 2.85 MIL/MM3 Hemoglobin 10.2 GM/DL 9.5 GM/DL Hematocrit 31.3 % 28.1 % Mean Corpuscular Volume 101.8 FL 98.6 FL Mean Corpuscular Hemoglobin 33.3 PG 33.2 PG Mean Corpuscular Hemoglobin Concent 32.7 % 33.7 % Red Cell Distribution Width 13.1 % 12.6 % Platelet Count 154 TH/MM3 159 TH/MM3 Mean Platelet Volume 9.3 FL 9.1 FL Activated Partial Thromboplast Time 30.2 SEC 52.5 SEC Potassium Level 6.1 MEQ/L 3.8 MEQ/L Random Glucose 189 MG/DL 169 MG/DL Neutrophils (%) (Auto) 93.0 % Lymphocytes (%) (Auto) 3.4 % Monocytes (%) (Auto) 3.4 % Eosinophils (%) (Auto) 0.0 % Basophils (%) (Auto) 0.2 % Neutrophils # (Auto) 8.3 TH/MM3 Lymphocytes # (Auto) 0.3 TH/MM3 Monocytes # (Auto) 0.3 TH/MM3 Eosinophils # (Auto) 0.0 TH/MM3 Basophils # (Auto) 0.0 TH/MM3 CBC Comment DIFF FINAL Differential Comment Blood Urea Nitrogen 81 MG/DL Creatinine 5.75 MG/DL Total Protein 5.3 GM/DL Albumin 1.9 GM/DL Calcium Level 6.5 MG/DL Alkaline Phosphatase 78 U/L Aspartate Amino Transf (AST/SGOT) 29 U/L Alanine Aminotransferase (ALT/SGPT) 21 U/L Total Bilirubin 0.3 MG/DL Sodium Level 134 MEQ/L Chloride Level 95 MEQ/L Carbon Dioxide Level 22.8 MEQ/L Anion Gap 16 MEQ/L Estimat Glomerular Filtration Rate 7 ML/MIN Protein Corrected Calcium 7.4 MG/DL Phosphorus Level 9.5 MG/DL Magnesium Level 1.9 MG/DL Thyroid Stimulating Hormone 3rd Gen 0.682 uIU/ML Assessment and Plan Problem List: (1) NSTEMI (non-ST elevated myocardial infarction) ICD Codes: I21.4 - Non-ST elevation (NSTEMI) myocardial infarction Status: Acute (2) Acute on chronic kidney failure ICD Codes: N17.9 - Acute kidney failure, unspecified; N18.9 - Chronic kidney disease, unspecified Status: Acute (3) HTN (hypertension) ICD Codes: I10 - HTN (hypertension) Status: Chronic (4) HLD (hyperlipidemia) ICD Codes: E78.5 - HLD (hyperlipidemia) Status: Chronic (5) Anemia ICD Codes: D64.9 - Anemia, unspecified Status: Acute Assessment and Plan 1) NSTEMI Con't medical management for now ASA/BB/Statin 2) LEEANN on CKD HD started 3) Chest pain very atypical, appears with a cough and eating, but concern for high troponin level 4) Will plan for cardiac catheterization in the morning NPO after midnight Risk, benefits and alternatives discussed with the patient Problem Qualifiers (1) Acute on chronic kidney failure: Qualified Codes: N17.9 - Acute kidney failure, unspecified; N18.9 - Chronic kidney disease, unspecified (2) HTN (hypertension): Qualified Codes: I10 - Essential (primary) hypertension (3) HLD (hyperlipidemia): Qualified Codes: E78.5 - Hyperlipidemia, unspecified (4) Anemia: Qualified Codes: D64.9 - Anemia, unspecified Hemanth Cole DO Apr 23, 2017 10:30
--- NOTE | 2017-04-23 11:13 | EKG ---
Date Performed: 04/22/2017 Time Performed: 09:48:43 PTAGE: 61 years EKG: Sinus rhythm NONSPECIFIC ST & T-WAVE ABNORMALITY BORDERLINE ECG PREVIOUS TRACING : 04/21/2017 05.22 Compared to prior tracing no significant change DOCTOR: Song Tsang Interpretating Date/Time 04/23/2017 11:12:44
--- NOTE | 2017-04-23 11:14 | EKG ---
Date Performed: 04/22/2017 Time Performed: 12:59:35 PTAGE: 61 years EKG: JUNCTIONAL RHYTHM vs. ectopic atrial rhythm NONSPECIFIC ST & T-WAVE ABNORMALITY ABNORMAL EC G PREVIOUS TRACING : 04/22/2017 09.48 DOCTOR: Song Tsang Interpretating Date/Time 04/23/2017 11:13:32
--- NOTE | 2017-04-23 11:37 | HHI.FPPN ---
Subjective Remarks Patient received dialysis yesterday. Hyperkalemia now resolved. Phosphate very high at 9.5. Magnesium is 1.9. Calcium corrected at 7.4. Does not report tetany , spasms. Chest pain is resolved. Continues with coughing but improved. No shortness of breath. No abdominal pain, nausea, or vomiting. No calf tenderness or swelling. No fevers overnight. Plan is for cardiac catheterization tomorrow. Has short run of atrial flutter overnight. Oxygen down to 92% overnight on 2L nasal cannula. Objective Vitals Vital Signs Date Time Temp Pulse Resp B/P (MAP) Pulse Ox O2 Delivery O2 Flow Rate FiO2 04/23/17 10:29 99 Nasal Cannula 2.00 04/23/17 08:00 97.9 73 18 159/72 (101) 95 04/23/17 07:00 98 Nasal Cannula 2.00 04/23/17 06:00 166/72 (103) 04/23/17 06:00 76 04/23/17 04:00 100 04/23/17 04:00 98.2 83 23 155/67 (96) 94 04/23/17 02:00 79 04/23/17 00:00 97.7 97 24 157/73 (101) 97 04/23/17 00:00 101 04/22/17 22:00 95 04/22/17 21:18 95 Nasal Cannula 2.00 04/22/17 20:00 Nasal Cannula 2.00 04/22/17 20:00 97.8 91 29 160/80 (106) 98 04/22/17 20:00 96 04/22/17 16:00 98.5 78 23 133/62 (85) 92 04/22/17 16:00 78 04/22/17 14:00 78 04/22/17 12:00 98.3 87 22 176/76 (109) 92 04/22/17 12:00 87 I/O 04/22/17 04/22/17 04/22/17 04/23/17 04/23/17 04/23/17 07:00 15:00 23:00 07:00 15:00 23:00 Intake Total 420 ml 1109.625 ml 967 ml Output Total 300 ml 850 ml Balance 120 ml 1109.625 ml 117 ml Intake Oral 420 ml 240 ml IV Total 1109.625 ml 727 ml Output Urine Total 300 ml 850 ml # Bowel Movements 0 3 Result Diagram: 04/23/1742404/23/17424 Objective Remarks General: Resting in bed, no distress Skin: No rashes or lesions HEENT: Normocephalic, no nasal discharge Neck: No JVD, trachea midline CV: RRR, no murmurs, rubs, or gallops, pulses regular Lungs: Wheezing and rhonchi, crackles in the bases, worse than yesterday but no respiratory distress, on 2L nasal cannula Abdomen: Soft, nontender, non-distended, normal bowel sounds MSK right third toe amputated, no swelling or tenderness Neuro: Awake, alert, not in distress, not anxious appearing, normal speech Procedures Vascath 04/22/17 Initiate hemodialysis 04/22/17 A/P Assessment and Plan 61 yo female with NSTEMI, acute COPD exacerbation, acute renal failure with chronic renal disease, acute hyperkalemia and hyponatremia, hyperphosphatemia and hypocalcemia, metabolic acidosis, requiring hemodialysis. Care transferred from [facility] to primary care team on 04/22/17. Cardiology and nephrology on board. Discharge Planning Pending stable clinical status. Scheduled for cardiac catheterization on . Receiving dialysis for acute on chronic renal failure and electrolyte disturbance. Problem List: (1) NSTEMI (non-ST elevated myocardial infarction) ICD Codes: I21.4 - Non-ST elevation (NSTEMI) myocardial infarction Status: Acute Plan: Troponin elevated at admission along with atypical chest pain. Non- specific ST-T wave changes on initial EKG's. ECHO with EF of 45-50% - Cardiology on board - Heparin drip, managed per cardiology - Continue aspirin 81 mg daily - Continue Lipitor 10 mg qHS - Continue Coreg 3.125 mg bid - Cardiac catheterization planned for 04/23/17. (2) Acute on chronic kidney failure ICD Codes: N17.9 - Acute kidney failure, unspecified; N18.9 - Chronic kidney disease, unspecified Status: Acute Plan: Has a history of diabetes with diabetic nephropathy. Has proteinuria and oliguria with acute decrease in renal function. Her baseline creatinine is about 2.8, now with doubling of creatinine. Also with hyperkalemia and metabolic acidosis. Etiology includes chronic kidney disease with acute exacerbation possibly from poor cardiac output with NSTEMI. Renal ultrasound showing no obstruction, has stone that is non-obstructing. - Nephrology on board, appreciate assistance. - Receiving bicarbonate infusion for metabolic acidosis secondary to renal disease. - Has hyperphosphatemia, phosphate restriction to 900 mg daily - Has hyponatremia that is improving, free water restriction until resolved. - Monitor urine output, intake/output - Workup including MIGUE, ANCA, complement profile, hepatitis profile, SPEP, UPEP. - Started hemodialysis on 04/22/17. - Avoid nephrotoxic agents, contrast agents. - Remove Adan catheter once stable, defer to nephrology (3) Secondary hyperparathyroidism (of renal origin) ICD Codes: N25.81 - Secondary hyperparathyroidism of renal origin Status: Acute Plan: Patient with secondary hyperparathyroidism with significantly elevated phosphate and low calcium. - Check intact PTH - Check 1-25 vitamin D - Dietary phosphate restriction to 900 mg/day - Would benefit from PhosLo, however, I prefer nephrology to decide on this medication - Would benefit from dialysis as she is fluid overloaded today with electrolyte disturbances - Nurse is attempting to get in touch with nephrology and dialysis unit now to get the plan, will page me back with results (4) COPD (chronic obstructive pulmonary disease) ICD Codes: J44.9 - Chronic obstructive pulmonary disease, unspecified Status: Chronic Plan: History of COPD with recent upper respiratory symptoms and acute exacerbation, recently diagnosed with pneumonia while on cruise ship and was started on azithromycin. - IV Solumedrol 60 mg q12hrs started 04/21 - DuoNebs q6hrs scheduled - Levaquin empirically, renally dosed, started 04/22 - O2 supplementation with target O2 90% (5) Hyperkalemia ICD Codes: E87.5 - Hyperkalemia; N18.9 - Chronic kidney disease, unspecified Status: Resolved Plan: Hyperkalemia up to 6.0 with acute renal failure. Resolved with hemodialysis. - Continue dialysis per nephrology - Received Kayexelate, discontinued for normal potassium - Bicarbonate drip for metabolic acidosis (6) Hyponatremia ICD Codes: E87.1 - Hypo-osmolality and hyponatremia Status: Acute Plan: Hyponatremia with acute renal failure, asymptomatic - Free water restriction until sodium improved - Hypertonic saline only if symptomatic or severe - Monitor electrolytes - Hemodialysis per nephrology (7) DM2 (diabetes mellitus, type 2) ICD Codes: E11.9 - Type 2 diabetes mellitus without complications Status: Chronic Plan: History of diabetes type II - Sliding scale insulin with glucose goal of 140-180 (8) HTN (hypertension) ICD Codes: I10 - HTN (hypertension) Status: Chronic Plan: - Continue carvedilol 3.125 bid (9) Hypothyroidism ICD Codes: E03.9 - Hypothyroidism, unspecified Status: Chronic Plan: TSH normal - Levothyroxine 50 mcg daily (10) Nutrition, metabolism, and development symptoms ICD Codes: R63.8 - Other symptoms and signs concerning food and fluid intake Status: Acute Plan: Heart healthy/renal diet 1L free water restriction Phosphate restriction 900 mg/day for hyperphosphatemia Hyponatremia, hyperkalemia Receiving dialysis per nephrology Acute renal failure with CKD, monitor renal function Protonix IV 40 mg daily, can discontinue when out of ICU (11) No contraindication to deep vein thrombosis (DVT) prophylaxis ICD Codes: Z78.9 - Other specified health status Status: Acute Plan: On heparin drip for NSTEMI Problem Qualifiers (1) Acute on chronic kidney failure: Qualified Codes: N17.9 - Acute kidney failure, unspecified; N18.9 - Chronic kidney disease, unspecified (2) DM2 (diabetes mellitus, type 2): (3) HTN (hypertension): Qualified Codes: I10 - Essential (primary) hypertension Clifford Bedolla MD R3 Apr 23, 2017 11:37
--- NOTE | 2017-04-23 12:11 | EKG ---
Date Performed: 04/22/2017 Time Performed: 20:52:24 PTAGE: 61 years EKG: ATRIAL FIBRILLATION WITH RAPID VENTRICULAR RESPONSE NONSPECIFIC ST & T-WAVE ABNORMALITY ABN ORMAL ECG PREVIOUS TRACING : 04/22/2017 16.46 DOCTOR: Song Tsang Interpretating Date/Time 04/23/2017 12:10:29
--- NOTE | 2017-04-23 12:11 | EKG ---
Date Performed: 04/22/2017 Time Performed: 16:46:53 PTAGE: 61 years EKG: Ectopic atrial rhythm vs. JUNCTIONAL RHYTHM with retrograde P-waves NONSPECIFIC ST & T-WAVE ABNORMALITY ABNORMAL ECG PREVIOUS TRACING : 04/22/2017 12.59 Consider lateral ischemia DOCTOR: Song Tsang Interpretating Date/Time 04/23/2017 12:10:22
[2017-04-23] MEDS: SODIUM CHLORIDE 23.4% INJ 38.5 MEQ, SODIUM BICARBONATE 8.4% INJ 100 MEQ in WATER STERIL... IV SCH (12:57)
[2017-04-23] MEDS: LEVOFLOXACIN 500 MG PREMIX INJ 100 ML IV SCH (12:57)
[2017-04-23] MEDS ORDERED: CALCIUM GLUCONATE INJ 1 GM in DEXTROSE 5% IN WATER 100ML INJ 100 ML IV ONE ×2 (14:00)
--- NOTE | 2017-04-23 14:03 | HHI.NPPN ---
Subjective History of Present Illness 61 y/o female patient with a hx of DM II, HTN, suspected underlying diabetic nephropathy with a baseline creatinine of 2.87, GFR 17 from this February. Additional Remarks Patient is alert, has mild SOB, no chest pain, with nasal cannula. Review of Systems General Constitutional: Fatigue Respiratory Lungs: SOB Cardiovascular Cardiac: Chest Pain, HAIR Objective Data Data Vital Signs Date Time Temp Pulse Resp B/P (MAP) Pulse Ox O2 Delivery O2 Flow Rate FiO2 04/23/17 11:00 84 04/23/17 10:29 99 Nasal Cannula 2.00 04/23/17 10:00 83 04/23/17 09:00 72 04/23/17 08:00 97.9 73 18 159/72 (101) 95 04/23/17 08:00 73 04/23/17 07:00 98 Nasal Cannula 2.00 04/23/17 07:00 72 04/23/17 06:00 166/72 (103) 04/23/17 06:00 76 04/23/17 04:00 100 04/23/17 04:00 98.2 83 23 155/67 (96) 94 04/23/17 02:00 79 04/23/17 00:00 97.7 97 24 157/73 (101) 97 04/23/17 00:00 101 04/22/17 22:00 95 04/22/17 21:18 95 Nasal Cannula 2.00 04/22/17 20:00 Nasal Cannula 2.00 04/22/17 20:00 97.8 91 29 160/80 (106) 98 04/22/17 20:00 96 04/22/17 16:00 98.5 78 23 133/62 (85) 92 04/22/17 16:00 78 -: 04/23/17 0425 04/23/17 0425 Physical Exam General Appearance: No Acute Distress, Comfortable Eyes Eye Exam: Pupils Equal Throat Throat Exam: Oral Mucosa Perrin & Moist Neck Neck Exam: Neck Supple Pulmonary Resp Exam: No Distress, Crackles, Rhonchi, Sputum, Decreased Bases, Diminished Breath Sounds Cardiology CV Exam: Regular, Normal Sinus Rhythm Gastrointestinal/Abdomen GI Exam: Soft, Non-Tender, Bowel Sounds Present, Distended Extremeties Extremities Exam: Trace Edema Neurologic Neuro Exam: Alert, Awake, Oriented Psychiatric Psych Exam: Appropriate Responses Assessment/Plan Problem List: (1) Acute on chronic kidney failure ICD Codes: N17.9 - Acute kidney failure, unspecified; N18.9 - Chronic kidney disease, unspecified Status: Acute Plan: She has advanced renal disease,Creatinine 2.8 at baseline Suspected underlying diabetic nephropathy, with 7.5 grams proteinuria LEEANN may due to NSTEMI, possibly sepsis syndrome Hyperkalemic with metabolic acidosis, see below Change IVF to contain bicarb She has a Adan catheter, can remove in next day or two Monitor urine output, is borderline oliguric currently Quantify proteinuria, obtain MIGUE, ANCA panel are pending, complement levels normal, hepatitis profile, serum protein electrophorus, urine immunofixation are all pending. Started on HD, due to high Creatinine and K level. Tolerated well. Now urine out put is slightly better. HD again in AM, to get Cardiac Cath tomorrow. Dr. Corral will follow in AM. (2) DM2 (diabetes mellitus, type 2) ICD Codes: E11.9 - Type 2 diabetes mellitus without complications Status: Chronic Plan: Insulin as needed, goal 140-180 mg/dL while hospitalized (3) NSTEMI (non-ST elevated myocardial infarction) ICD Codes: I21.4 - Non-ST elevation (NSTEMI) myocardial infarction Status: Acute Plan: Cardiology is following On Nitro and heparin gtt 2D echo ordered appreciate further recommendations (4) Hyperkalemia ICD Codes: E87.5 - Hyperkalemia; N18.9 - Chronic kidney disease, unspecified Status: Resolved Plan: Due to reduction in GFR and metabolic acidosis Given Kayexalate, start bicarb gtt Repeat labs in AM (5) Metabolic acidosis ICD Codes: E87.2 - Acidosis Status: Acute Plan: Bicarb gtt (1/4 NS with 100 mEq at 50 cc/hr) Follow metabolic profile Problem Qualifiers (1) Acute on chronic kidney failure: Qualified Codes: N17.9 - Acute kidney failure, unspecified; N18.9 - Chronic kidney disease, unspecified (2) DM2 (diabetes mellitus, type 2): Juan Michaud MD Apr 23, 2017 14:02
[2017-04-23] MEDS: CALCIUM ACETATE 667 MG CAP PO SCH (17:24)
[2017-04-23] MEDS: hydrALAZINE HCL 20 MG/ML VIAL IV PUSH PRN (17:25)
[2017-04-23] MEDS: TEMAZEPAM 15 MG CAP PO PRN (20:53)
[2017-04-23] MEDS: ATORVASTATIN 10 MG TAB PO SCH (20:53)
[2017-04-23] MEDS: HEPARIN-D5W 25,000 U/250 ML 250 ML IV PRN (20:55)
[2017-04-24] VITALS (55 sets, daily range): BP systolic 98–208; BP diastolic 58–93; PULSE 66–100; RESP 13–36; TEMP 97.4–98.7; O2SAT 93–100
[2017-04-24] MEDS: CHLORHEXIDINE GLUCONATE 2 % 1 PACK (2 CLOTHS) TOP SCH (04:00)
[2017-04-24] MEDS: INSULIN ASPART SUPPLEMENTAL SCALE SQ SCH ×6 (04:00→20:00)
[2017-04-24] MEDS: RESP: ALBUTEROL 2.5 MG/IPRATROPIUM 0.5 MG NEB (SCH) INH ×4 (05:32→21:11)
[2017-04-24] MEDS: LEVOTHYROXINE SODIUM 50 MCG TAB PO SCH (05:37)
[2017-04-24 05:56] LABS: HEMATOCRIT 28.9 % (35.0-46.0); MEAN CELL VOLUME 98.1 FL (80.0-100.0); MEAN CORPUSCULAR HEMOGLOBIN 33.7 PG (27.0-34.0); MEAN CORPUSCULAR HGB CONC 34.4 % (32.0-36.0); PLATELET COUNT 174 TH/MM3 (150-450); RED BLOOD COUNT 2.94 MIL/MM3 (4.00-5.30); RED CELL DISTRIBUTION WIDTH 12.7 % (11.6-17.2); REVIEW FLAG FINAL; WHITE BLOOD COUNT 7.9 TH/MM3 (4.0-11.0)
[2017-04-24 06:07] LABS: APTT (PATIENT) 68.9 SEC (24.3-30.1)
[2017-04-24 06:19] LABS: BICARBONATE 24.5 MEQ/L (21.0-32.0); MAGNESIUM 1.8 MG/DL (1.5-2.5); POTASSIUM 3.7 MEQ/L (3.5-5.1)
[2017-04-24] MEDS: hydrALAZINE HCL 20 MG/ML VIAL IV PUSH PRN (06:29)
[2017-04-24 06:33] LABS: CALCIUM-PROTEIN CORRECTED 7.3 MG/DL (8.5-10.1)
[2017-04-24] MEDS: CYANOCOBALAMIN 1,000 MCG TAB PO SCH (09:00)
--- NOTE | 2017-04-24 09:06 | HHI.NPPN ---
Subjective Renal Failure: Chronic, Acute, Stage IV Interval History She is awake, alert. In route to cardiac catheterization this morning. Urine output has improved. (Cris Telles) Review of Systems General Constitutional: Fatigue (Cris Telles) Respiratory Lungs: SOB (Cris Telles) Cardiovascular Cardiac: Chest Pain, HAIR (Cris Telles) Objective Data Data Vital Signs Date Time Temp Pulse Resp B/P (MAP) Pulse Ox O2 Delivery O2 Flow Rate FiO2 04/24/17 07:00 96 Nasal Cannula 2.00 04/24/17 06:00 82 04/24/17 04:00 97.8 68 20 145/69 (94) 96 04/24/17 04:00 68 04/24/17 02:00 68 04/24/17 00:00 97.5 66 18 160/75 (103) 97 04/24/17 00:00 66 04/23/17 22:00 86 04/23/17 21:40 91 2.00 04/23/17 20:00 97.4 78 20 171/79 (109) 04/23/17 20:00 78 04/23/17 19:00 97 Nasal Cannula 2.00 04/23/17 18:00 97 04/23/17 17:00 71 04/23/17 16:00 75 04/23/17 16:00 98.5 75 19 179/80 (113) 99 04/23/17 15:00 78 04/23/17 14:00 75 04/23/17 13:00 78 04/23/17 12:00 81 04/23/17 12:00 98.0 81 29 173/82 (112) 99 04/23/17 11:00 84 04/23/17 10:29 99 Nasal Cannula 2.00 04/23/17 10:00 83 04/23/17 09:00 72 (Cris Telles) -: 04/24/17 0446 04/24/17 0446 Imaging Last 72 hours Impressions Chest X-Ray 04/22/17 0600 Signed Impressions: Service Date/Time: Saturday, April 22, 2017 02:19 - CONCLUSION: No acute cardiopulmonary disease identified. Trevor Townsend MD Chest X-Ray 04/22/17 0000 Signed Impressions: Service Date/Time: Saturday, April 22, 2017 14:40 - CONCLUSION: Right IJ line with tip at the atriocaval junction. No pneumothorax or other acute complication. Keegan Dobbs MD Tubes & Lines: Vas-Cath, Adan Drip Comment Heparin (Cris Telles B. RAPID EXTRACTOR OPERATOR) Physical Exam General Appearance: Well Developed, No Acute Distress, Comfortable (Cris Telles B. RAPID EXTRACTOR OPERATOR) Eyes Eye Exam: Pupils Equal (Mukul Telleson B. RAPID EXTRACTOR OPERATOR) Throat Throat Exam: Oral Mucosa [place] & Moist (Cris Telles B. RAPID EXTRACTOR OPERATOR) Neck Neck Exam: Neck Supple (Cris Telles B. RAPID EXTRACTOR OPERATOR) Pulmonary Resp Exam: No Distress, Crackles, Rhonchi, Sputum, Decreased Bases, Diminished Breath Sounds (Mukul Telleson B. RAPID EXTRACTOR OPERATOR) Cardiology CV Exam: Regular, Normal Sinus Rhythm, Good Perfusion (Cris Telles B. RAPID EXTRACTOR OPERATOR) Gastrointestinal/Abdomen GI Exam: Soft, Non-Tender, Bowel Sounds Present, Distended (Cris Telles B. RAPID EXTRACTOR OPERATOR) Genitourinary Exam: Clear Urine (Cris Telles B. RAPID EXTRACTOR OPERATOR) Musculoskeletal MS Exam: Joints Intact, Normal Tone, Good Strength (Mukul Telleson B. RAPID EXTRACTOR OPERATOR) Integumentary Skin Exam: Clear, Warm, Dry, Intact (Mukul Telleson B. RAPID EXTRACTOR OPERATOR) Extremeties Extremities Exam: Pedal Pulses Palpable, Trace Edema (Mukul Telleson B. RAPID EXTRACTOR OPERATOR) Neurologic Neuro Exam: Alert, Awake, Oriented, Speech Clear, Moving All Extremities (Mukul Telleson B. RAPID EXTRACTOR OPERATOR) Psychiatric Psych Exam: Appropriate Responses (Cris Telles B. RAPID EXTRACTOR OPERATOR) VTE Prophylaxis Meds: Heparin (ElfegoCris B. RAPID EXTRACTOR OPERATOR) Assessment/Plan Discussed Condition With: Patient Assessment Summary: LEEANN/Acute Renal Failure, [place] Hyperparathyroid, Proteinuria, Hypertension, Diabetes Mellitus, CKD Stage IV Electrolyte Assessment: Hypocalcemia Problem List: (1) Acute on chronic kidney failure ICD Codes: N17.9 - Acute kidney failure, unspecified; N18.9 - Chronic kidney disease, unspecified Status: Acute Plan: She has advanced renal disease, Creatinine 2.8 at baseline, CKD 4 Suspected underlying diabetic nephropathy, with 7.5 grams proteinuria MIGUE, ANCA panel are still pending, complement levels normal, hepatitis profile is negative, serum protein electrophoresis, and urine immunofixation are all pending. LEEANN may due to NSTEMI and decreased renal perfusion HD started on 04/22, vascath placed right IJ Urine output has improved Will have dialysis today immediately after cardiac catheterization Change IVF to NS @ 75 pre cath Repeat renal panel in AM HD if needed MWF (2) DM2 (diabetes mellitus, type 2) ICD Codes: E11.9 - Type 2 diabetes mellitus without complications Status: Chronic Plan: Insulin as needed to maintain glucose of 140-180 mg/dL while hospitalized (3) NSTEMI (non-ST elevated myocardial infarction) ICD Codes: I21.4 - Non-ST elevation (NSTEMI) myocardial infarction Status: Acute Plan: Cardiology is following Off Nitro gtt, continues on heparin gtt 2D echo: LVH, EF 45-50% To have cardiac catheterization today (4) Metabolic bone disease ICD Codes: E88.9 - Metabolic disorder, unspecified; M90.80 - Osteopathy in diseases classified elsewhere, unspecified site Plan: Calcium acetate has been started Start calcitriol for secondary hyperparathyroidism (5) Hyperkalemia ICD Codes: E87.5 - Hyperkalemia; N18.9 - Chronic kidney disease, unspecified Status: Resolved Plan: Due to reduction in GFR and metabolic acidosis Improved with dialysis, monitor for recurrence (6) Metabolic acidosis ICD Codes: E87.2 - Acidosis Status: Acute Plan: Corrected, stop Bicarb gtt Follow metabolic profile (7) COPD with acute exacerbation ICD Codes: J44.1 - Chronic obstructive pulmonary disease with (acute) exacerbation Plan: On nebulizers, oxygen She is also on Levaquin and solumedrol (Cris Telles) Plan patient was seen and examined. Agree with above assessment and plan. Watch for signs of renal recovery, however, she had cath, and may need CABG. (Fantasma Corral MD) Problem Qualifiers (1) Acute on chronic kidney failure: Qualified Codes: N17.9 - Acute kidney failure, unspecified; N18.9 - Chronic kidney disease, unspecified (2) DM2 (diabetes mellitus, type 2): Cris Telles Apr 24, 2017 09:06 Fantasma Corral MD Apr 24, 2017 12:47
[2017-04-24] MEDS ORDERED: MIDAZOLAM HCL 2 MG/2 ML VIAL ONE (09:08)
[2017-04-24] MEDS: CALCITRIOL 0.25 MCG CAP PO SCH (09:15)
--- NOTE | 2017-04-24 09:57 | CATHPROC ---
[employer] HIS Report Study Information Study Number Admission Scheduled Start Study Start [id number] Apr 21 2017 6:37AM 04/23/2017 Apr 24 2017 8:04AM [place] [facility] Cardiac Catheterization Admit Source Facility Department Emergency department [facility] - Block Operator Physician and Clinical Staff Initial Hemanth Mckeon Leach Tank Tender Gabi Sherman RN Recorder Josey Russo,RT(R) Scrub Gerard Soto RCIS(BS) Procedures Performed Procedure Location (Site) Vessel Name Coronary Angiograms LCA Left Coronary Coronary Angiograms RCA Right Coronary Equipment Time Pocket Marker Description Size Mfg Part Number Used/Scraped TRANSDUCER, JOSELUIS [id number] 08:08 GRANT FIGUEROA * Used W/STOCKCOCK *[id number] INTRODUCER SET, [id number] 09:15 [employer] FR 5 Used MICROPUNCTURE *[id number] *[id number] *[id number] 08:08 [employer] PACK, CCL CUSTOM * Used *[id number] 08:08 [employer] SHEATH, FR5.5 PRELUDE 11CM FR 5 [id number] Used [id number] 09:21 [email or web address] MEDICAL WIRE, 3MMJ .035 180CM 180CM Used *[id number] 08:08 NAMIC MANIFOLD, 4 PORT * Used *[id number] 08:08 [employer] OMNIPAQUE, 350 MG, 150ML 150ML [id number] Used [id number] 08:08 [email or web address] BLANKET,WARM AIR CCL * Used *[id number] History: Current Medications Medication Dosage/Unit Route Frequency Last Date/Time Taken ASA CARVEDILOL LIPITOR Synthroid History: Allergies Allergy Reaction Sulfa (Sulfonamide Antibiotics) RASH sulfamethoxazole Rash trimethoprim Rash History: Risk Factors Family History of Hypertension Dyslipidemia Previous NE Previous Heart Failure Premature CAD Yes Yes No No Yes Prior Valve Prior PCI Prior CABG Surgery No No No Cerebrovascular Peripheral Artery Chronic Lung On Dialysis Diabetes Diabetes Therapy Disease Disease Disease Yes No Yes Yes Yes Insulin History: Symptoms/Diagnosis Selection Items Chest pain History: Stress Tests Stress or Imaging Studies Performed No History: Arrhythmias Selection Items Atrial fibrillation History: Other Disease Selection Items COPD Renal Failure-Dialysis History: Other Current Smoker Method Quit Packs a Day Years Used Pack Years No Cigarettes 1 Years Ago 1 45 45 Labs Hgb (g/dl) Hct (%) WBC (l/cumm) Platelets (thousands) 11.60-17.00 35.00-51.00 4.00-11.00 150.00-450.00 9.9 28.9 7.9 174 Glucose (mg/dl) BUN (mg/dl) Creatinine (mg/dl) BUN:Creatinine (1:x) 74.00-106.00 7.00-18.00 0.50-1.30 10.00-20.00 208 100 5.4 18.5 Na (meq/l) K (meq/l) 136.00-145.00 3.50-5.10 132 3.7 INR (PTT:PT) 0.90-1.10 1 Troponin I (ng/ml) CPK-MB (ng/ML) 0.02-0.05 0.50-3.60 6.81 Not Drawn Medication Medication Total Dose (Bolus/Oral) Medication Total Dosage/Unit 1% XYLOCAINE 20 mL FENTANYL 50 mcg OXYGEN 2 l/min VERSED 0.5 mg Medications (Bolus/Oral) Medication Time Given Dosage/Unit Administered By Reason VERSED 04/24/2017 9:16:13 AM 0.5 mg Gabi Sherman 0.5 mg VERSED given in lab by Gabi Sherman RN in Left Forearm via Peripheral IV. Ordered by Hemanth Arteaga FENTANYL 04/24/2017 9:17:00 AM 50 mcg Gabi Sherman 50 mcg FENTANYL given in lab by Gabi Sherman RN in Left Forearm via Peripheral IV. Ordered by Hemanth Rojo 1% XYLOCAINE 04/24/2017 9:18:19 AM 20 mL Hemanth Cole 20 mL 1% XYLOCAINE given in lab by Hemanth Cole in Right Groin via Subcutaneous. OXYGEN 04/24/2017 9:19:42 AM 2 l/min Gabi Sherman 2 l/min OXYGEN given in lab by Gabi Sherman RN via Nasal. Medication (Drip) Medication Time Given Dosage/Unit Concentration/Unit Diluent (ml) Solution IV Solutions 04/24/2017 8:49:05 AM 50 mL (IV) NaCl .9 IV Solutions given in lab by Gabi Sherman RN in Right Forearm via Peripheral IV. Pump/Drip Flow u sing NaCl .9. Initial Case Assessment Cardiovascular HR Rhythm NIBP Chest Pain 80 a-fib 179/82 0 Circulatory - Right Pulses Dorsalis Pedis Femoral 2 1 Scale (0,1,2,3,4,d) Circulatory - Left Pulses Dorsalis Pedis Femoral 2 1 Scale (0,1,2,3,4,d) Neurological State Oriented to time-place- Alert Moves all extremities person Respiration - General Respiration Rate SpO2 (%) (B/min) 13 93 Chronological Log Time Study Chronological Log 8:47:00 Patient arrived via Bed. 8:48:39 Patient Name, D.O.B, / Armband Verified By R.N. 8:48:40 Consent signed by the physician and the patient and verified by the Block Operator staff. 8:48:41 Pre-op and post- op instructions given; patient acknowledges understanding of instructions. 8:48:41 Verbal Stimulation=2 Physical Stimulation=2 Airway=2 Respiration=1 TOTAL=8. (0=absent, 1=li mited, 2=present) 8:48:53 Patient has been NPO for More than 6Hrs. 8:48:54 Skin Breakdown- right groin skin tear 8:48:55 Patient Warmer Placed on the Table. 8:48:58 Paula Prominences Protected 8:49:04 A # 20 IV was noted in the Forearm (left). Grade = 0 8:49:04 Right side vas cath 8:49:04 A # 20 IV was noted in the Forearm (right). Grade = 0 8:49:05 IV Solutions given in lab by Gabi Sherman RN in Right Forearm via Peripheral IV. Pump/D rip Flow using NaCl .9. 8:49:08 History and physical on the chart or being dictated. Assessment: Initial Case, HR=80 BPM, Rhythm=a-fib, NRGT=875/82 mmhg, Chest Pain=0 Right Pulses: Cornelius Ped=2, Femoral=1 8:49:09 Left Pulses: Cornelius Ped=2, Femoral=1 Neurological: State=Alert, Ox3, VICK Respiration: Resp=13 B/min, SpO2=93 % Vitals capture started with the following parameters, Patient=Adult, Interval=5 min, Initial Pr wwrkxe=968 mmHg, 9:03:40 Deflation Rate=5 mmHg, Cuff placed on Right Arm 9:04:25 HR=84 bpm, IKZA=866/88 mmhg, SpO2=92.0 %, Resp=13 B/min 9:05:29 Reference ECG taken 9:06:00 MD arrived. 9:08:34 Bilateral groins prepped with 2% chlorhexidine, and draped after a 3 minute waiting time. 9:09:26 HR=84 bpm, XHYJ=166/82 mmhg, SpO2=91.0 %, Resp=17 B/min 9:13:07 Pressure channel 1 zeroed. 9:14:30 HR=81 bpm, KMYV=797/83 mmhg, SpO2=92.0 %, Resp=9 B/min Time Out. Correct patient, correct procedure, correct physician, power injector loaded, or not l oaded with contrast with 9:16:09 surgical team present. Time Out Concurred by MD and individual staff in procedure. 9:16:13 0.5 mg VERSED given in lab by Gabi Sherman, RN in Left Forearm via Peripheral IV. Ordered by Hemanth Cole 50 mcg FENTANYL given in lab by Gabi Sherman, REBEKA in Left Forearm via Peripheral IV. Ordered b Hemanth Delgadillo 9:17:00 G. 9:17:10 Case Start 9:18:19 20 mL 1% XYLOCAINE given in lab by Hemanth Cole in Right Groin via Subcutaneous. 9:19:26 HR=79 bpm, YEMC=822/85 mmhg, SpO2=92.0 %, Resp=11 B/min 9:19:42 2 l/min OXYGEN given in lab by Gabi Shermna, REBEKA via Nasal. 9:20:30 Access site was Right Femoral Artery. 9:20:43 A INTRODUCER SET, MICROPUNCTURE FR 5 was advanced into the Fem Art (right) using the Percuta neous technique. A SHEATH, FR5.5 PRELUDE 11CM FR 5 was exchanged in the Fem Art (right). This was necessary in or rehan to 9:21:13 accomodate a larger catheter. 9:22:41 An injection in the Fem Art (right) was made through the SHEATH, FR5.5 PRELUDE 11CM FR 5. A JR 4.0 INFINITI CATHETER FR 5 was advanced over a wire. OMNIPAQUE, 350 MG, 150ML 150ML was use d for 9:23:15 injections. 9:23:25 Changed oxygen to 6L/min Recorded Pressure: LV, HR=78, Condition=Condition 1 9:24:17 (Left Ventricle) LV 169/26/32 9:24:23 HR=78 bpm, BPPN=955/80 mmhg, SpO2=94.0 %, Resp=10 B/min Recorded Pressure: LV, Ao, HR=81, Condition=Condition 1 9:24:44 (Left Ventricle) LV 166/25/30, (Aorta) Ao 172/73/115 9:25:27 The RCA was injected and visualized at various angles. OMNIPAQUE, 350 MG, 150ML 150ML used. After removing the current catheter a JL 4.0 INFINITI CATHETER FR 5 was advanced over a WIRE, 3M MJ .035 180CM 9:26:47 180CM. 9:29:01 The LCA was injected and visualized at various angles. OMNIPAQUE, 350 MG, 150ML 150ML used. 9:29:25 HR=74 bpm, KBSD=916/80 mmhg, SpO2=99.0 %, Resp=10 B/min Recorded Pressure: Ao, HR=82, Condition=Condition 1 9:33:23 (Aorta) Ao 162/74/112 9:34:24 HR=77 bpm, GWXZ=044/93 mmhg, SaM9=764.0 %, Resp=12 B/min 9:37:38 Catheter was removed 9:37:59 Case End 9:39:07 Activated Clotting Time Drawn 9:39:25 HR=75 bpm, RBSJ=035/84 mmhg, WiS9=070.0 %, Resp=15 B/min 9:42:24 ACT (Normal Range 90-180) = 130 9:43:08 Sheath(s) left in place, will be removed on the floor. 9:43:43 Sterile dressing applied to site 9:43:44 No case complications noted. 9:43:45 Cine recording checked. 9:43:59 Report called to floor. 9:44:00 Contrast Scanned 9:44:26 HR=82 bpm, MYSO=991/83 mmhg, ZyN6=634.0 %, Resp=13 B/min 9:46:56 Vitals capture stopped. 9:53:52 Patient moved to stretcher End Study - Contrast Media Used In Study Contrast Total Opened (mL) Total Used (mL) Total Wasted (mL) Omnipaque 80 80 0 End Study - Maximum Contrast Load Max Contrast Load (mL) 69.0 End Study - Radiation Exposure Fluoro Time (minutes) 3.7 End Study - Patient Disposition Complications Transferred To Interventional Outcome No Telemetry Bed No attempt made
[2017-04-24] MEDS ORDERED: SODIUM CHLOR 0.9% 250 ML INJ 250 ML IV PRN (10:00)
[2017-04-24] MEDS ORDERED: ATROPINE SULFATE 1 MG/ML VIAL IV PUSH PRN (10:00)
[2017-04-24] MEDS: SODIUM CHLOR 0.9% 1000 ML INJ 1,000 ML IV SCH ×2 (10:00→23:47)
[2017-04-24] MEDS ORDERED: IOHEXOL 350 MG/ML 100 ML BTL (for Cath Lab) OTHER ONE (10:23)
[2017-04-24 10:40] LABS: ALBUMIN SPE 2.93 GM/DL (3.50-5.00); ALPHA 1 GLOBULIN 0.34 GM/DL (0.11-0.29); ALPHA 2 GLOBULIN 1.17 GM/DL (0.22-1.00); BETA GLOBULINS (SPE) 0.86 GM/DL (0.53-1.03)
[2017-04-24] MEDS ORDERED: HEPARIN-NS/PF INJ 500 ML ONE (11:32)
--- NOTE | 2017-04-24 11:37 | MA ---
cc: HEMANTH DAMICO DO DATE April 24, 2017 PROCEDURE Left heart catheterization, coronary angiogram, moderate sedation 20 minutes. PREPROCEDURE DIAGNOSIS NSTEMI. New cardiomyopathy. POSTPROCEDURE DIAGNOSIS Multivessel coronary artery disease, NSTEMI. MEDICATIONS Versed 0.5 mg. Fentanyl 50 mcg. CONTRAST USED 80 cc. FLUOROSCOPY 3.7 minutes. MODERATE SEDATION 20 minutes. ESTIMATED BLOOD LOSS 10 cc. PROCEDURAL SUMMARY Michelle Alicia is a pleasant 61-year-old female who presented to [facility] Emergency Room due to chest pain. She was found to have an elevated troponin and because of this was recommended cardiac catheterization. The risks, benefits and alternatives were explained her and she consented as such. She was brought to the lab and prepped in the usual sterile fashion. Right femoral artery was accessed using a modified Seldinger technique and placement of a 5-English sheath. This was easily aspirated and flushed. A JR-4 was advanced over a J-wire to the ascending aorta and across the aortic valve for measurement of left ventricular pressure. This was pulled back across the aortic valve showing no significant gradient of aortic stenosis. The JR-4 was used for selective angiography of the right coronary artery. This was exchanged out for a JL-4 which was used for selective angiography of the left coronary artery system. JL-4 was removed over a J-wire. The sheath was sewn in place with the plan to remove and pressure held for hemostasis. The patient left the Pageant Director cardiovascularly stable. FINDINGS LEFT MAIN: Short. Mild disease in the midportion. It trifurcates into an LAD, ramus and circumflex. LAD: Normal-sized vessel with a long tubular 70% lesion in the proximal portion and diffuse 30% disease distally. It gives off two diagonals which have diffuse 80% disease in overall small vessels. LEFT CIRCUMFLEX: Normal-sized vessel with an 80% stenosis in the proximal portion before bifurcating into the mid-circumflex and obtuse marginal. The first obtuse marginal has tandem 80% lesions. The mid-circumflex has a 99% subtotally occluded lesion and distal to this that has a 90% lesion before supplying another small posterior lateral branch as well as the PDA. RAMUS: A small vessel with diffuse 90% disease. RIGHT CORONARY ARTERY: Nondominant vessel with an 80% lesion. LVEDP: 30. IMPRESSION 1. NSTEMI. 2. Multivessel coronary artery disease. 3. Acute on chronic kidney disease, currently on dialysis. 4. New cardiomyopathy with an ejection fraction of 45-50%. RECOMMENDATIONS 1. Ms. Alicia presented with an NSTEMI and was found to have multivessel disease. Because of this should she will be recommended consideration of cardiothoracic surgery. 2. We will plan on placing her back on heparin after her sheath is pulled due to her NSTEMI and multivessel disease. 3. Further recommendations will be made after CT surgery evaluation. Thank you for allowing me to see Michelle Alicia. If there are any questions please do not hesitate to call. Hemanth Damico DO VGP/SSB /9:57 AM /11:31 AM
--- NOTE | 2017-04-24 11:37 | HHI.FPPN ---
Subjective Remarks Mrs. Alicia was seen this morning after cardiac catheterization while receiving dialysis. Per EMR review, patient with mild HTN overnight. Per discussion with nursing staff near bedside, patient doing well overall; patient still with sheath in femoral artery which will be removed in near future. Patient has planned discussion with Cardiology regarding potential CABG. Which is improved somewhat when she sits upright. Patient also has some shortness of breath. Patient does not report any chest pain. Patient also does not report any abdominal pain. Patient has been coughing some. Patient overall feels that she is doing okay with exception of significant back pain. (Eric Stevenson MD, R3) Objective Vitals Vital Signs Date Time Temp Pulse Resp B/P (MAP) Pulse Ox O2 Delivery O2 Flow Rate FiO2 04/24/17 07:00 96 Nasal Cannula 2.00 04/24/17 06:00 82 04/24/17 04:00 97.8 68 20 145/69 (94) 96 04/24/17 04:00 68 04/24/17 02:00 68 04/24/17 00:00 97.5 66 18 160/75 (103) 97 04/24/17 00:00 66 04/23/17 22:00 86 04/23/17 21:40 91 2.00 04/23/17 20:00 97.4 78 20 171/79 (109) 04/23/17 20:00 78 04/23/17 19:00 97 Nasal Cannula 2.00 04/23/17 18:00 97 04/23/17 17:00 71 04/23/17 16:00 75 04/23/17 16:00 98.5 75 19 179/80 (113) 99 04/23/17 15:00 78 04/23/17 14:00 75 04/23/17 13:00 78 04/23/17 12:00 81 04/23/17 12:00 98.0 81 29 173/82 (112) 99 I/O 04/23/17 04/23/17 04/23/17 04/24/17 04/24/17 04/24/17 07:00 15:00 23:00 07:00 15:00 23:00 Intake Total 967 ml 100 ml 810 ml 1494 ml 239 ml Output Total 850 ml 750 ml 550 ml Balance 117 ml 100 ml 60 ml 944 ml 239 ml Intake Oral 240 ml 700 ml IV Total 727 ml 100 ml 110 ml 1494 ml 239 ml Output Urine Total 850 ml 750 ml 550 ml # Bowel Movements 3 0 (Eric Stevenson MD, R3) Result Diagram: 04/24/17 0446 04/24/17 0446 Imaging Last Impressions Chest X-Ray 04/22/17 0600 Signed Impressions: Service Date/Time: Saturday, April 22, 2017 02:19 - CONCLUSION: No acute cardiopulmonary disease identified. Trevor Townsend MD Renal Ultrasound 04/21/17 0000 Signed Impressions: Service Date/Time: Friday, April 21, 2017 17:11 - CONCLUSION: Stone in the lateral left kidney. No evidence of hydronephrosis or solid mass. No evidence of obstruction. Kirill Linder MD Objective Remarks General: Resting in bed, no distress, receiving hemodialysis Skin: No rashes or lesions HEENT: Normocephalic, no nasal discharge CV: RRR, no murmurs. LE edema. Normal perfusion Lungs: Some mild basilar crackles; decreased air movement. On 2 L O2 with O2 saturations >95%. Abdomen: Soft, nontender, non-distended, normal bowel sounds MSK: Not assessed at this exam right third toe amputated, no swelling or tenderness Neuro: Awake, alert. Grossly normal CN. No peripheral motor/sensory defects appreciated. Procedures Vascath 04/22/17 Initiate hemodialysis 04/22/17 (Eric Stevenson MD, R3) A/P Assessment and Plan 61 yo female with NSTEMI, acute COPD exacerbation, acute renal failure with chronic renal disease, acute hyperkalemia and hyponatremia, hyperphosphatemia and hypocalcemia, metabolic acidosis, requiring hemodialysis. 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 Cardiology and nephrology on board. Discharge Planning Pending stable clinical status. Receiving dialysis for acute on chronic renal failure and electrolyte disturbance. Planned CT surgery evaluation for multivessel coronary disease (Eric Stevenson MD, R3) Attending Attestation Patient seen and examined. Case reviewed and discussed with the resident team. Agree with plan of care as discussed with me and documented in the resident note. she is stable hemodynamically and may be going for bypass soon (Cris Santana MD) Problem List: (1) NSTEMI (non-ST elevated myocardial infarction) ICD Codes: I21.4 - Non-ST elevation (NSTEMI) myocardial infarction Status: Acute Plan: Impression: Troponin elevated at admission along with atypical chest pain. Non-specific ST-T wave changes on initial EKG's. ECHO with EF of 45-50% - Cardiology consulted -Heparin drip initiated per Cardiology - Continue aspirin 81 mg daily - Continue Lipitor 10 mg qHS - Continue Coreg 3.125 mg bid -s/p Catheterization per Dr. 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 Has proteinuria and oliguria with acute decrease in renal function. Her baseline creatinine is about 2.8, now with doubling of creatinine. Also with hyperkalemia and metabolic acidosis. Etiology includes chronic kidney disease with acute exacerbation possibly from poor cardiac output with NSTEMI. Renal ultrasound showing no obstruction, has stone that is non-obstructing. Complement negative Hepatitis profile negative - Nephrology consulted -Continue HD (currently receiving today) -MIGUE, ANCA, SPEP, UPEP pending -IVF per Nephrology -Continue to monitor urine output, electrolytes - Avoid nephrotoxic agents, contrast agents (3) Secondary hyperparathyroidism (of renal origin) ICD Codes: N25.81 - Secondary hyperparathyroidism of renal origin Status: Acute Plan: Patient with secondary hyperparathyroidism with significantly elevated phosphate and low calcium. Intact PTH 364.5 1,25 OH Vit D pending - Dietary phosphate restriction to 900 mg/day -Consider PhosLo -Dialysis per Nephrology (4) COPD (chronic obstructive pulmonary disease) ICD Codes: J44.9 - Chronic obstructive pulmonary disease, unspecified Status: Chronic Plan: History of COPD with recent upper respiratory symptoms and acute exacerbation, recently diagnosed with pneumonia while on cruise ship and was started on azithromycin. - IV Solumedrol 60 mg q12hrs started 04/21 - DuoNebs q6hrs scheduled - Levaquin empirically, renally dosed, started 04/22 - O2 supplementation with target O2 90% (5) Hyperkalemia ICD Codes: E87.5 - Hyperkalemia; N18.9 - Chronic kidney disease, unspecified Status: Resolved Plan: Hyperkalemia up to 6.0 with acute renal failure. Resolved with hemodialysis. - Continue dialysis per nephrology (6) Hyponatremia ICD Codes: E87.1 - Hypo-osmolality and hyponatremia Status: Resolved Plan: Hyponatremia with acute renal failure, asymptomatic - Free water restriction until sodium improved - Hypertonic saline only if symptomatic or severe - Monitor electrolytes - Hemodialysis per nephrology (7) DM2 (diabetes mellitus, type 2) ICD Codes: E11.9 - Type 2 diabetes mellitus without complications Status: Chronic Plan: History of diabetes type II - Sliding scale insulin with glucose goal of 140-180 (8) HTN (hypertension) ICD Codes: I10 - HTN (hypertension) Status: Chronic Plan: Impression: Mild hypertension during hospitalization with SBP 140s-160 - Continue carvedilol 3.125 bid (9) Hypothyroidism ICD Codes: E03.9 - Hypothyroidism, unspecified Status: Chronic Plan: TSH normal - Levothyroxine 50 mcg daily (10) Nutrition, metabolism, and development symptoms ICD Codes: R63.8 - Other symptoms and signs concerning food and fluid intake Status: Acute Plan: Heart healthy/renal diet 1L free water restriction Phosphate restriction 900 mg/day for hyperphosphatemia Hyponatremia, hyperkalemia Receiving dialysis per nephrology Acute renal failure with CKD, monitor renal function Protonix IV 40 mg daily, can discontinue when out of ICU (11) No contraindication to deep vein thrombosis (DVT) prophylaxis ICD Codes: Z78.9 - Other specified health status Status: Acute Plan: On heparin drip for NSTEMI (Eric Stevenson MD, R3) Problem Qualifiers (1) Acute on chronic kidney failure: Qualified Codes: N17.9 - Acute kidney failure, unspecified; N18.9 - Chronic kidney disease, unspecified (2) DM2 (diabetes mellitus, type 2): (3) HTN (hypertension): Qualified Codes: I10 - Essential (primary) hypertension (4) Hypothyroidism: Qualified Codes: E03.9 - Hypothyroidism, unspecified Eric Stevenson MD, R3 Apr 24, 2017 11:37 Cris Santana MD Apr 28, 2017 11:56
[2017-04-24] MEDS: ASPIRIN 81 MG CHEW TAB CHEW SCH (11:48)
[2017-04-24] MEDS: DOCUSATE SODIUM 50 MG/SENNA 8.6 MG TAB PO SCH ×2 (11:48→20:51)
[2017-04-24] MEDS: CARVEDILOL 3.125 MG TAB PO SCH ×2 (11:48→20:50)
[2017-04-24] MEDS: CALCIUM ACETATE 667 MG CAP PO SCH ×3 (11:48→17:01)
[2017-04-24] MEDS: methylPREDNISolone SOD SUCC 125 MG/2 ML VIAL IV PUSH SCH ×2 (11:49→20:50)
[2017-04-24] MEDS: PANTOPRAZOLE SODIUM 40 MG VIAL IV PUSH SCH (11:49)
[2017-04-24] MEDS: SODIUM CHLORIDE 0.9% FLUSH 10 ML FLUSH IV FLUSH SCH ×3 (11:50→20:51)
[2017-04-24] MEDS: ACETAMINOPHEN 325 MG TAB PO PRN (11:50)
[2017-04-24] MEDS: GENTAMICIN SULFATE (DIALYSIS USE ONLY) 20 MG/2 ML VIAL OTHER PRN (12:10)
[2017-04-24] MEDS: HEPARIN SODIUM - IV 10,000 UNITS/10 ML VIAL IV FLUSH PRN (12:11)
[2017-04-24 12:59] LABS: ANA SCREEN NEG (NEG)
--- NOTE | 2017-04-24 14:56 | PD.CARD.PN ---
Subjective Subjective Remarks No further chest pain/SOB Post-cath, doing well Objective Medications Current Medications Medications (Trade) Dose Ordered Sig/Des Route Start Time Stop Time Status Last Admin (Heparin Inj) 5,000 units UNSCH PRN IV PUSH 04/21/17 11:45 (Heparin Inj) 2,500 units UNSCH PRN IV PUSH 04/21/17 11:45 Heparin Sodium/ Dextrose 250 ml @ 9 mls/hr TITRATE PRN IV 04/21/17 05:45 04/23/17 20:55 (NS Flush) 2 ml UNSCH PRN IV FLUSH 04/21/17 06:45 (NS Flush) 2 ml BID IV FLUSH 04/21/17 09:00 04/24/17 11:50 (Protonix Inj) 40 mg DAILY IV PUSH 04/21/17 09:00 04/24/17 11:49 (Duoneb Neb) 1 ampule Q6HR NEB INH 04/21/17 10:00 04/24/17 05:32 (Duoneb Neb) 1 ampule Q4HR NEB PRN INH 04/21/17 06:45 Miscellaneous Information 1 Q361D XX 04/21/17 06:45 (Chlorhexidine 2% Cloth) 3 pack Taper DAILY@04 TOP 04/22/17 04:00 04/18/18 03:59 04/22/17 04:00 (Chlorhexidine 2% Cloth) 3 pack UNSCH PRN TOP 04/21/17 06:45 (Malaika-Colace) 1 tab BID PO 04/21/17 09:00 04/24/17 11:48 (Milk Of Magnesia Liq) 30 ml Q12H PRN PO 04/21/17 06:45 (Senokot) 17.2 mg Q12H PRN PO 04/21/17 06:45 (Dulcolax Supp) 10 mg DAILY PRN RECTAL 04/21/17 06:45 (Lactulose Liq) 30 ml DAILY PRN PO 04/21/17 06:45 (Aspirin Chew) 81 mg DAILY CHEW 04/22/17 09:00 04/24/17 11:48 (Coreg) 3.125 mg Q12HR PO 04/21/17 09:00 04/24/17 11:48 (Lipitor) 10 mg HS PO 04/21/17 21:00 04/23/17 20:53 (Vitamin B12) 500 mcg DAILY PO 04/21/17 09:00 04/23/17 09:32 (Synthroid) 50 mcg DAILY@0600 PO 04/21/17 07:00 04/24/17 05:37 (NovoLOG SUPPLEMENTAL SCALE) 1 Q4HR SQ 04/21/17 08:00 04/24/17 04:00 (SoluMEDROL INJ) 60 mg Q12HR IV PUSH 04/21/17 11:30 04/24/17 11:49 Levofloxacin/ Dextrose 100 ml @ 100 mls/hr Q48H IV 04/21/17 12:00 04/23/17 12:57 (Restoril) 15 mg HS PRN PO 04/21/17 20:45 04/23/17 20:53 Sodium Chloride 1,000 ml @ 0 mls/hr Q0M PRN OTHER 04/22/17 14:04 (Heparin Inj) 8,000 units UNSCH PRN IV FLUSH 04/22/17 14:15 04/24/17 12:11 Sodium Chloride 1,000 ml @ 200 mls/hr Q5H PRN IV 04/22/17 14:04 Sodium Chloride 1,000 ml @ 0 mls/hr Q0M PRN OTHER 04/22/17 14:04 (Mannitol Inj) 12.5 gm UNSCH PRN IV 04/22/17 14:15 Albumin Human 100 ml @ 60 mls/hr UNSCH PRN IV 04/22/17 14:15 (NS Flush) 5 ml UNSCH PRN IV FLUSH 04/22/17 14:15 (Heparin Inj) UNSCH PRN .XX 04/22/17 14:15 (Gentamicin (Dialysis) Inj) 20 mg UNSCH PRN OTHER 04/22/17 14:15 04/24/17 12:10 (Zofran Inj) 4 mg UNSCH PRN IV PUSH 04/22/17 14:15 (Tylenol) 650 mg UNSCH PRN PO 04/22/17 14:15 04/24/17 11:50 (Benadryl) 25 mg UNSCH PRN PO 04/22/17 14:15 (Nitrostat Sl) 0.4 mg UNSCH PRN SL 04/22/17 14:15 (Catapres) 0.1 mg UNSCH PRN PO 04/22/17 14:15 04/22/17 21:36 (Gelfoam 12 Mm/7 Mm Top) 1 foam UNSCH PRN TOP 04/22/17 14:15 (Apresoline Inj) 10 mg Q30M PRN IV PUSH 04/23/17 13:15 04/24/17 06:29 (Phoslo) 2,001 mg TID PO 04/23/17 18:00 04/24/17 11:48 Sodium Chloride 1,000 ml @ 75 mls/hr [id number] IV 04/24/17 08:30 (Rocaltrol) 0.25 mcg DAILY PO 04/24/17 09:15 (Atropine Inj) 0.5 mg UNSCH PRN IV PUSH 04/24/17 10:00 Sodium Chloride 250 ml @ 500 mls/hr ONCE PRN IV 04/24/17 10:00 04/25/17 09:59 Vital Signs / I&O Vital Signs Date Time Temp Pulse Resp B/P (MAP) Pulse Ox O2 Delivery O2 Flow Rate FiO2 04/24/17 13:06 96 Nasal Cannula 2.00 04/24/17 07:00 96 Nasal Cannula 2.00 04/24/17 06:00 82 04/24/17 04:00 97.8 68 20 145/69 (94) 96 04/24/17 04:00 68 04/24/17 02:00 68 04/24/17 00:00 97.5 66 18 160/75 (103) 97 04/24/17 00:00 66 04/23/17 22:00 86 04/23/17 21:40 91 2.00 04/23/17 20:00 97.4 78 20 171/79 (109) 04/23/17 20:00 78 04/23/17 19:00 97 Nasal Cannula 2.00 04/23/17 18:00 97 04/23/17 17:00 71 04/23/17 16:00 75 04/23/17 16:00 98.5 75 19 179/80 (113) 99 04/23/17 15:00 78 I/O 04/23/17 04/23/17 04/23/17 04/24/17 04/24/17 04/24/17 07:00 15:00 23:00 07:00 15:00 23:00 Intake Total 967 ml 100 ml 810 ml 1494 ml 239 ml Output Total 850 ml 750 ml 550 ml Balance 117 ml 100 ml 60 ml 944 ml 239 ml Intake Oral 240 ml 700 ml IV Total 727 ml 100 ml 110 ml 1494 ml 239 ml Output Urine Total 850 ml 750 ml 550 ml # Bowel Movements 3 0 Physical Exam GENERAL: NAD, AAOx3 SKIN: Warm and dry. HEAD: Atraumatic. Normocephalic. EYES: Pupils equal and round. No scleral icterus. No injection or drainage. ENT: No nasal bleeding or discharge. Mucous membranes pink and moist. NECK: Trachea midline. No JVD. CARDIOVASCULAR: Regular rate and rhythm. RESPIRATORY: No accessory muscle use. Clear to auscultation. Breath sounds equal bilaterally. GASTROINTESTINAL: Abdomen soft, non-tender, nondistended. Hepatic and splenic margins not palpable. MUSCULOSKELETAL: Extremities without clubbing, cyanosis, or edema. No obvious deformities. Right femoral sheath in place NEUROLOGICAL: Awake and alert. No obvious cranial nerve deficits. Motor grossly within normal limits. Five out of 5 muscle strength in the arms and legs. Normal speech. PSYCHIATRIC: Appropriate mood and affect; insight and judgment normal. Laboratory Laboratory Tests Test 04/24/17 04:46 White Blood Count 7.9 TH/MM3 Red Blood Count 2.94 MIL/MM3 Hemoglobin 9.9 GM/DL Hematocrit 28.9 % Mean Corpuscular Volume 98.1 FL Mean Corpuscular Hemoglobin 33.7 PG Mean Corpuscular Hemoglobin Concent 34.4 % Red Cell Distribution Width 12.7 % Platelet Count 174 TH/MM3 Mean Platelet Volume 9.3 FL Activated Partial Thromboplast Time 68.9 SEC Blood Urea Nitrogen 100 MG/DL Creatinine 5.45 MG/DL Random Glucose 206 MG/DL Total Protein 5.2 GM/DL Calcium Level 6.4 MG/DL Phosphorus Level 8.6 MG/DL Magnesium Level 1.8 MG/DL Sodium Level 132 MEQ/L Potassium Level 3.7 MEQ/L Chloride Level 94 MEQ/L Carbon Dioxide Level 24.5 MEQ/L Anion Gap 14 MEQ/L Estimat Glomerular Filtration Rate 8 ML/MIN Protein Corrected Calcium 7.3 MG/DL Parathyroid Hormone (Intact) 364.5 PG/ML Assessment and Plan Problem List: (1) NSTEMI (non-ST elevated myocardial infarction) ICD Codes: I21.4 - Non-ST elevation (NSTEMI) myocardial infarction Status: Acute (2) Acute on chronic kidney failure ICD Codes: N17.9 - Acute kidney failure, unspecified; N18.9 - Chronic kidney disease, unspecified Status: Acute (3) HTN (hypertension) ICD Codes: I10 - HTN (hypertension) Status: Chronic (4) HLD (hyperlipidemia) ICD Codes: E78.5 - HLD (hyperlipidemia) Status: Chronic (5) Anemia ICD Codes: D64.9 - Anemia, unspecified Status: Acute Assessment and Plan 1) NSTEMI/CAD Multivessel CAD Restart heparin 8 hours after sheath pulled ASA/BB/Statin CT surgery evaluation 2) LEEANN on CKD HD started Problem Qualifiers (1) Acute on chronic kidney failure: Qualified Codes: N17.9 - Acute kidney failure, unspecified; N18.9 - Chronic kidney disease, unspecified (2) HTN (hypertension): Qualified Codes: I10 - Essential (primary) hypertension (3) HLD (hyperlipidemia): Qualified Codes: E78.5 - Hyperlipidemia, unspecified (4) Anemia: Qualified Codes: D64.9 - Anemia, unspecified Hemanth Cole DO Apr 24, 2017 14:56
[2017-04-24] MEDS ORDERED: INSULIN REGULAR (IV INFUSION) 100 UNITS in SODIUM CHLORIDE 0.9% INJ 99 ML IV PRN (15:45)
[2017-04-24] MEDS ORDERED: METOPROLOL TARTRATE 25 MG TAB PO SCH (15:45)
[2017-04-24] MEDS ORDERED: ceFAZolin 2 GM PREMIX 50 ML IV SCH (15:45)
[2017-04-24] MEDS ORDERED: DEXTROSE 50% IN WATER 50 ML VIAL(D50) IV PUSH PRN (15:45)
[2017-04-24] MEDS ORDERED: CEFAZOLIN INJ 500 MG in SODIUM CHLORIDE 0.9% IRR BTL 500 ML IRRIGATION SCH (15:45)
[2017-04-24] MEDS ORDERED: CHLORHEXIDINE GLUCONATE 4% SOLN 120 ML BTL TOPICAL SCH (15:45)
[2017-04-24] MEDS ORDERED: SODIUM CHLORIDE 0.9% FLUSH 10 ML FLUSH IV FLUSH PRN (15:45)
[2017-04-24] MEDS ORDERED: PAPAVERINE INJ 60 MG, NITROGLYCERIN INJ 100 MCG, DILTIAZEM INJ 100 MG in SODIUM CHLORID... IRRIGATION SCH (15:45)
--- NOTE | 2017-04-24 15:50 | PD.CAR.PN ---
CVT Progress Note Subjective/Hospital Course: sts data discussed with pt RISK SCORES About the STS Risk Calculator Procedure: CAB Only Risk of Mortality: 3.643% Morbidity or Mortality: 24.175% Long Length of Stay: 11.281% Short Length of Stay: 18.383% Permanent Stroke: 1.758% Prolonged Ventilation: 21.037% DSW Infection: 0.951% Renal Failure: N/A Reoperation: 6.83% Objective: Vital Signs Date Time Temp Pulse Resp B/P (MAP) Pulse Ox O2 Delivery O2 Flow Rate FiO2 04/24/17 13:06 96 Nasal Cannula 2.00 04/24/17 07:00 96 Nasal Cannula 2.00 04/24/17 06:00 82 04/24/17 04:00 97.8 68 20 145/69 (94) 96 04/24/17 04:00 68 04/24/17 02:00 68 04/24/17 00:00 97.5 66 18 160/75 (103) 97 04/24/17 00:00 66 04/23/17 22:00 86 04/23/17 21:40 91 2.00 04/23/17 20:00 97.4 78 20 171/79 (109) 04/23/17 20:00 78 04/23/17 19:00 97 Nasal Cannula 2.00 04/23/17 18:00 97 04/23/17 17:00 71 04/23/17 16:00 75 04/23/17 16:00 98.5 75 19 179/80 (113) 99 Labs: Laboratory Tests Test 04/24/17 04:46 White Blood Count 7.9 TH/MM3 (4.0-11.0) Red Blood Count 2.94 MIL/MM3 (4.00-5.30) Hemoglobin 9.9 GM/DL (11.6-15.3) Hematocrit 28.9 % (35.0-46.0) Mean Corpuscular Volume 98.1 FL (80.0-100.0) Mean Corpuscular Hemoglobin 33.7 PG (27.0-34.0) Mean Corpuscular Hemoglobin Concent 34.4 % (32.0-36.0) Red Cell Distribution Width 12.7 % (11.6-17.2) Platelet Count 174 TH/MM3 (150-450) Mean Platelet Volume 9.3 FL (7.0-11.0) Activated Partial Thromboplast Time 68.9 SEC (24.3-30.1) Blood Urea Nitrogen 100 MG/DL (7-18) Creatinine 5.45 MG/DL (0.50-1.00) Random Glucose 206 MG/DL (74-106) Total Protein 5.2 GM/DL (6.4-8.2) Calcium Level 6.4 MG/DL (8.5-10.1) Phosphorus Level 8.6 MG/DL (2.5-4.9) Magnesium Level 1.8 MG/DL (1.5-2.5) Sodium Level 132 MEQ/L (136-145) Potassium Level 3.7 MEQ/L (3.5-5.1) Chloride Level 94 MEQ/L (98-107) Carbon Dioxide Level 24.5 MEQ/L (21.0-32.0) Anion Gap 14 MEQ/L (5-15) Estimat Glomerular Filtration Rate 8 ML/MIN (>89) Protein Corrected Calcium 7.3 MG/DL (8.5-10.1) Parathyroid Hormone (Intact) 364.5 PG/ML (12.4-76.8) Result Diagram: 04/24/1744504/24/17445 (1) NSTEMI (non-ST elevated myocardial infarction) (2) Acute on chronic kidney failure (3) HTN (hypertension) (4) HLD (hyperlipidemia) (5) Anemia Problem Qualifiers (1) Acute on chronic kidney failure: Qualified Codes: N17.9 - Acute kidney failure, unspecified; N18.9 - Chronic kidney disease, unspecified (2) HTN (hypertension): Qualified Codes: I10 - Essential (primary) hypertension (3) HLD (hyperlipidemia): Qualified Codes: E78.5 - Hyperlipidemia, unspecified (4) Anemia: Qualified Codes: D64.9 - Anemia, unspecified Terrie Medina Apr 24, 2017 15:50
[2017-04-24] MEDS: HEPARIN-D5W 25,000 U/250 ML 250 ML IV PRN (18:17)
--- NOTE | 2017-04-24 18:57 | RADRPT ---
EXAM DATE/TIME: 04/24/2017 17:25 [facility] COMPARISON: No previous studies available for comparison. INDICATIONS : Pre-OP CABG. MEDICAL HISTORY : Hypercholesterolemia. Hypertension. Gastroesophageal reflux disease. Hypothyroidism. CVA. CHF. Diabet es, type 2. Anemia. SURGICAL HISTORY : section.Appendectomy. Cardiac catheterizating. ENCOUNTER: Initial ACUITY: 1 day PAIN SCORE: 0/10 LOCATION: Bilateral legs. TECHNIQUE: Venous ultrasound of the left and right leg was performed from the inguinal ligament to the proximal calf. Real-time, color Doppler and spectral tracing, compression and augmentation techniques were us ed. FINDINGS: RIGHT LEG: There is normal compressibility of the deep venous system from the inguinal region to the proximal ca lf. No echogenic clot is seen in the lumen of the common femoral, femoral, popliteal, and posterior tibial veins. There is a normal response of the venous system to proximal and distal augmentation an d respiration. LEFT LEG: There is normal compressibility of the deep venous system from the inguinal region to the proximal ca lf. No echogenic clot is seen in the lumen of the common femoral, femoral, popliteal, and posterior tibial veins. There is a normal response of the venous system to proximal and distal augmentation an d respiration. In the right popliteal fossa there is an anechoic avascular structure measuring 2.4 x 2.7 x 1.3 cm ch aracteristic of a Colon's cyst. CONCLUSION: No DVT is identified within either lower extremity. Keegan Santos MD on April 24, 2017 at 18:54 Board Certified Radiologist. This report was verified electronically.
[2017-04-24] MEDS: ATORVASTATIN 10 MG TAB PO SCH (20:51)
--- NOTE | 2017-04-24 23:09 | RADRPT ---
EXAM DATE/TIME: 04/24/2017 17:38 [facility] COMPARISON: No previous studies available for comparison. INDICATIONS : Pre-OP CABG. MEDICAL HISTORY : Hypercholesterolemia. Hypertension. Gastroesophageal reflux disease. Hypothyroidism. CVA. CHF. Diabet es, type 2. Anemia. SURGICAL HISTORY : Appendectomy. section. ENCOUNTER: Initial ACUITY: 1 day PAIN SCORE: 0/10 LOCATION: Bilateral legs. GREATER SAPHENOUS VEIN THIGH: PROXIMAL: Right 2 mm Left 3 mm MID: Right 2 mm Left 1 mm DISTAL: Right Non-visualized Left 1 mm CALF: PROXIMAL: Right Non-visualized Left Non-visualized MID: Right Non-visualized Left Non-visualized DISTAL: Right Non-visualized Left Non-visualized FINDINGS: The venous system of the lower extremities are patent by color Doppler imaging. Measurements of the leg veins (in mm) are listed above. CONCLUSION: 1. Venous mapping as above Bi Billings MD on April 24, 2017 at 23:07 Board Certified Radiologist. This report was verified electronically.
[2017-04-24] MEDS: TEMAZEPAM 15 MG CAP PO PRN (23:44)
[2017-04-25] VITALS (41 sets, daily range): BP systolic 128–192; BP diastolic 59–88; PULSE 66–90; RESP 16–20; TEMP 97.3–98.7; O2SAT 87–100
[2017-04-25] MEDS: RESP: ALBUTEROL 2.5 MG/IPRATROPIUM 0.5 MG NEB (SCH) INH (03:35)
[2017-04-25] MEDS: CHLORHEXIDINE GLUCONATE 2 % 1 PACK (2 CLOTHS) TOP SCH (04:00)
[2017-04-25] MEDS: INSULIN ASPART SUPPLEMENTAL SCALE SQ SCH ×7 (04:00→23:34)
[2017-04-25 05:36] LABS: AUTOMATED NEUTROPHIL # 9.3 TH/MM3 (1.8-7.7); BASOPHIL % 0.1 % (0.0-2.0); HEMATOCRIT 23.3 % (35.0-46.0); HEMO FLAGS DIFF FINAL; LYMPHOCYTE # 0.4 TH/MM3 (1.0-4.8); MEAN CELL VOLUME 98.7 FL (80.0-100.0); MEAN CORPUSCULAR HEMOGLOBIN 33.7 PG (27.0-34.0); MEAN CORPUSCULAR HGB CONC 34.1 % (32.0-36.0); MONO % 4.7 % (0.0-8.0); NEUT % 91.2 % (16.0-70.0); PLATELET COUNT 164 TH/MM3 (150-450); RED BLOOD COUNT 2.36 MIL/MM3 (4.00-5.30); RED CELL DISTRIBUTION WIDTH 12.7 % (11.6-17.2); WHITE BLOOD COUNT 10.2 TH/MM3 (4.0-11.0)
[2017-04-25 05:46] LABS: APTT (PATIENT) 60.7 SEC (24.3-30.1)
[2017-04-25 06:12] LABS: BICARBONATE 25.5 MEQ/L (21.0-32.0); CALCIUM-PROTEIN CORRECTED 8.6 MG/DL (8.5-10.1); POTASSIUM 3.8 MEQ/L (3.5-5.1); TOTAL BILIRUBIN ADULT 0.2 MG/DL (0.2-1.0)
[2017-04-25] MEDS: LEVOTHYROXINE SODIUM 50 MCG TAB PO SCH (06:19)
--- NOTE | 2017-04-25 07:57 | MB ---
cc: LOU GONZALES DATE OF CONSULTATION: 04/24/2017 DATE OF : 1955 HISTORY OF PRESENT ILLNESS: The patient is a 61 year-old patient who presented to [facility] emergency department on 04/21. She had recently been on a cruise to the [place] a week prior to coming in. She became sick during the cruise, developed cough, generalized malaise, some intermittent nausea and vomiting. She was seen by her primary care physician, was treated with a Z-Caleb and Kartik Quiroz. She also was found to have acute kidney injury with chronic kidney disease stage IV. She has had a history of some kidney problems she says in the past but she was to follow up with her primary and be re-evaluated in June. There was no talk of any dialysis at that time. Upon her arrival she was found to have an elevated troponin to 7.85, was started on a heparin drip and her creatinine was 5.98, and her baseline is about 2.8, probably secondary to diabetic neuropathy. They did start hemodialysis on 04/22 via a right IJ Vas-Cath. She underwent cardiac catheterization today by Dr. Cole which showed a 70% lesion in the proximal LAD and 80% in the proximal portion of the circumflex. The first OM had an 80% lesion. The mid circ was a subtotally occluded lesion and distal to this was a 90% lesion before supplying another posterior lateral branch. The right coronary artery was nondominant with an 80% lesion. Her ejection fraction was 45 to 50% by echocardiogram, some mild LVH, also some mild mitral valve replacement. We were consulted to evaluate for coronary artery bypass grafting. PAST MEDICAL HISTORY: 1. COPD. 2. Diabetes mellitus type 2. 3. Hypertension. 4. Hyperlipidemia. 5. Peripheral neuropathy. 6. Chronic kidney disease, stage IV, currently now on dialysis. 7. History of gastric ulcers. 8. Nonspecific colitis. 9. Diverticulosis. 10. Hypothyroidism. 11. Recent admission also with COPD exacerbation. 12. Hemorrhoids. PAST SURGICAL HISTORY: 1. Amputation of the right third toe. 2. She apparently had an ulcer that she was not aware of it because of her peripheral neuropathy. 3. . 4. Appendectomy. ALLERGIES: Sulfa HOME MEDICATIONS: 1. Zithromax. 2. Cipro which she is currently not on. 3. Ferrous sulfate. 4. Lipitor. 5. Amlodipine. 6. Aspirin. 7. Mag oxide. 8. Glipizide. 9. Levothyroxine. FAMILY HISTORY No premature cardiac disease or sudden . SOCIAL HISTORY The patient is . She continues to smoke cigarettes, however, she says she quit two months ago. She has been smoking for approximately 45 years. Denies alcohol or drug abuse. REVIEW OF SYSTEMS: General: No night sweats, fever, heat and cold intolerance. Skin: No psoriasis, itching or hives. HEENT: No blurred vision, hearing loss. Respiratory: Positive for cough, shortness of breath. Cardiovascular: No chest pain. No paroxysmal nocturnal dyspnea. No orthopnea. Gastrointestinal: No diarrhea, vomiting. Genitourinary: No burning, frequency, urgency. [employer]: No history of TIA, CVA, seizure disorder. Endocrinology: Positive for diabetes and hypothyroidism. PHYSICAL EXAMINATION: Blood pressure 140/60, heart rate 68, afebrile. O2 sat 96 on 2 liters. Patient is awake, alert, no acute distress. Head: Normocephalic, atraumatic. Pupils equal and reactive. Oral mucosa pink, moist. Neck: Supple. JVD. No carotid bruits noted. Heart: Heart sounds S1-S2, regular rate and rhythm. No audible rubs, murmurs, gallops. Lungs: She does have some few coarse breath sounds. No overt wheezing, rales or rhonchi. Abdomen: Obese, soft, nontender. No masses or organomegaly. Extremities: Has some trace edema. She does have amputation of the right third toe, otherwise there is no open lesions or sores to both feet. LABORATORY WORK: Shows hemoglobin of 9.9, hematocrit of 28, white cell count 7.9, platelet count 174, sodium 131, potassium 5.5, BUN of 76, creatinine 5.89. She was dialyzed after this, magnesium 1.8, BNP 971, that was on the third. Urinalysis also on the third showed some small leuko esterase, few bacteria. Microbiology showed no growth in 48 hours. She was also negative for influenza A and B. Chest x-ray on the 4th showed no acute process. IMPRESSION This is a 61 year old female admitted with non STEMI, also acute renal failure with chronic kidney disease, baseline of 2.8, currently now undergoing dialysis. She underwent her cardiac cath with multivessel disease, ejection fraction of 45%. The cardiac films have been reviewed by Dr. Lou Gonzales. PLAN: The plan at this time is evaluation for coronary artery bypass graft x3 on April 28. In the meantime we will consult physical therapy to assist the patient to be out of bed. Follow up with labs. Also pending carotid ultrasound, vein mapping. Her STS score is 3.64. She is agreeable to proceed. Further testing still pending. Dictated by: WAYNE Moore MD SHYANN Cardozo/LOI /4:06 PM /8:01 AM
[2017-04-25] MEDS ORDERED: SODIUM CHLOR 0.9% 250 ML INJ 250 ML IV ONE (08:45)
--- NOTE | 2017-04-25 08:50 | HHI.FPPN ---
Subjective Remarks Mrs. Alicia was afebrile with stable VS overnight; saturating 97% on 2 L O2. Patient reports mild abdominal pain with coughing but otherwise is doing well. No reported chest pain or shortness of breath. Patient has not been out of bed. Minimal urine in Adan catheter bag. Last BM 1-2 days ago (Eric Stevenson MD, R3) Objective Vitals Vital Signs Date Time Temp Pulse Resp B/P (MAP) Pulse Ox O2 Delivery O2 Flow Rate FiO2 04/25/17 07:00 97 Nasal Cannula 2.00 04/25/17 06:00 67 04/25/17 04:00 97.4 66 16 128/60 (82) 100 04/25/17 04:00 66 04/25/17 02:00 70 04/25/17 00:00 98.7 75 17 145/59 (87) 95 04/25/17 00:00 75 04/24/17 22:00 78 04/24/17 21:12 99 Nasal Cannula 2.00 04/24/17 20:00 98.7 94 29 121/61 (81) 94 04/24/17 20:00 94 04/24/17 19:00 Nasal Cannula 2.00 04/24/17 18:00 83 04/24/17 17:44 83 15 97 04/24/17 17:30 84 23 102/63 (76) 97 04/24/17 17:15 90 31 121/71 (88) 96 04/24/17 17:15 90 31 121/71 (88) 96 04/24/17 17:00 84 21 109/60 (76) 98 04/24/17 17:00 84 21 109/60 (76) 98 04/24/17 16:45 85 22 109/66 (80) 97 04/24/17 16:45 85 22 109/66 (80) 97 04/24/17 16:44 87 28 98 04/24/17 16:30 88 20 130/68 (88) 96 04/24/17 16:30 88 20 130/68 (88) 96 04/24/17 16:15 85 20 118/59 (78) 93 04/24/17 16:15 85 20 118/59 (78) 93 04/24/17 16:00 97.4 88 21 98/58 (71) 93 04/24/17 16:00 88 04/24/17 16:00 88 21 98/58 (71) 93 04/24/17 15:45 88 21 99/59 (72) 95 04/24/17 15:45 88 21 99/59 (72) 95 04/24/17 15:44 95 22 96 04/24/17 15:31 92 25 103/59 (74) 96 04/24/17 15:31 92 25 103/59 (74) 96 04/24/17 15:21 100 20 154/72 (99) 99 04/24/17 15:21 100 20 154/72 (99) 99 04/24/17 15:15 93 31 208/81 (123) 100 04/24/17 15:15 93 31 208/81 (123) 100 04/24/17 15:01 83 27 146/68 (94) 98 04/24/17 15:01 83 27 146/68 (94) 98 04/24/17 15:00 80 26 98 04/24/17 14:46 85 29 159/93 (115) 96 04/24/17 14:46 85 29 159/93 (115) 96 04/24/17 14:44 88 36 97 04/24/17 14:31 76 19 159/77 (104) 97 04/24/17 14:31 76 19 159/77 (104) 97 04/24/17 14:15 89 32 194/85 (121) 98 04/24/17 14:15 89 32 194/85 (121) 98 04/24/17 14:00 72 28 157/72 (100) 97 04/24/17 14:00 72 28 157/72 (100) 97 04/24/17 14:00 72 04/24/17 13:45 76 18 173/75 (107) 96 04/24/17 13:45 76 18 173/75 (107) 96 04/24/17 13:30 79 25 177/81 (113) 96 04/24/17 13:30 79 25 177/81 (113) 96 04/24/17 13:15 81 18 156/72 (100) 95 04/24/17 13:15 81 18 156/72 (100) 95 04/24/17 13:06 96 Nasal Cannula 2.00 04/24/17 13:00 85 18 141/59 (86) 95 04/24/17 13:00 85 18 141/59 (86) 95 04/24/17 13:00 85 18 141/59 (86) 95 04/24/17 12:45 84 16 156/72 (100) 97 04/24/17 12:45 84 16 156/72 (100) 97 04/24/17 12:31 80 15 174/73 (106) 96 04/24/17 12:31 80 15 174/73 (106) 96 04/24/17 12:15 85 15 154/64 (94) 93 04/24/17 12:15 85 15 154/64 (94) 93 04/24/17 12:00 97.7 84 18 167/78 (107) 94 04/24/17 12:00 84 04/24/17 12:00 84 18 167/78 (107) 94 04/24/17 11:45 88 15 135/68 (90) 93 04/24/17 11:45 88 15 135/68 (90) 93 04/24/17 11:30 80 14 164/78 (106) 96 04/24/17 11:30 80 14 164/78 (106) 96 04/24/17 11:15 78 13 175/81 (112) 95 04/24/17 11:15 78 13 175/81 (112) 95 04/24/17 11:00 85 27 134/77 (96) 99 04/24/17 11:00 85 27 134/77 (96) 99 04/24/17 10:52 75 16 175/76 (109) 98 04/24/17 10:52 75 16 175/76 (109) 98 04/24/17 10:45 75 22 98 04/24/17 10:30 74 13 168/76 (106) 100 04/24/17 10:30 74 13 168/76 (106) 100 04/24/17 10:16 77 13 190/79 (116) 100 04/24/17 10:16 77 13 190/79 (116) 100 04/24/17 10:00 86 I/O 04/24/17 04/24/17 04/24/17 04/25/17 04/25/17 04/25/17 07:00 15:00 23:00 07:00 15:00 23:00 Intake Total 1494 ml 239 ml 564 ml 1542 ml Output Total 550 ml 375 ml 200 ml Balance 944 ml 239 ml 189 ml 1342 ml Intake Oral 600 ml IV Total 1494 ml 239 ml 564 ml 942 ml Output Urine Total 550 ml 375 ml 200 ml Stool Total 0 ml # Bowel Movements 0 0 0 (Eric Stevenson MD, R3) Result Diagram: 04/25/17 0438 04/25/17 0438 Imaging Last Impressions Lower Extremity Ultrasound 04/24/17 0000 Signed Impressions: Service Date/Time: Monday, April 24, 2017 17:38 - CONCLUSION: 1. Venous mapping as above Bi Billings MD Chest X-Ray 04/22/17 0600 Signed Impressions: Service Date/Time: Saturday, April 22, 2017 02:19 - CONCLUSION: No acute cardiopulmonary disease identified. Trevor Townsend MD Renal Ultrasound 04/21/17 0000 Signed Impressions: Service Date/Time: Friday, April 21, 2017 17:11 - CONCLUSION: Stone in the lateral left kidney. No evidence of hydronephrosis or solid mass. No evidence of obstruction. Kirill Linder MD Objective Remarks General: Resting in bed, no distress Skin: No rashes or lesions HEENT: Normocephalic, no nasal discharge CV: RRR, no murmurs. No LE edema. Normal perfusion Lungs: CTAB; decreased air movement. On 2 L O2 with O2 saturations >95%. Abdomen: Soft, nontender, non-distended, normal bowel sounds MSK: Not assessed at this exam- previously right third toe amputated, no swelling or tenderness Neuro: Awake, alert. Grossly normal CN. No peripheral motor/sensory defects appreciated. Procedures Vascath 04/22/17 Initiate hemodialysis 04/22/17 (Eric Stevenson MD, R3) A/P Assessment and Plan 61 yo female with NSTEMI, acute COPD exacerbation, acute renal failure with chronic renal disease requiring hemodialysis. Care transferred from residential sales to primary care team on 04/22/17. Cardiology and nephrology on board; receiving dialysis. Cath 04/24 with multivessel CAD; plans for CABG. Discharge Planning Receiving dialysis for acute on chronic renal failure and electrolyte disturbance. Planned CT surgery evaluation for multivessel coronary disease (Eric Stevenson MD, R3) Attending Attestation Patient seen and examined. Case reviewed and discussed with the resident team. Agree with plan of care as discussed with me and documented in the resident note. will need to continue watching her urine output as being oliguric is concerning (Cris Santana MD) Problem List: (1) NSTEMI (non-ST elevated myocardial infarction) ICD Codes: I21.4 - Non-ST elevation (NSTEMI) myocardial infarction Status: Acute Plan: Impression: Troponin elevated at admission along with atypical chest pain. Non-specific ST-T wave changes on initial EKG's. ECHO with EF of 45-50% - Cardiology consulted -Heparin drip initiated per Cardiology - Continue aspirin 81 mg daily - Continue Lipitor 10 mg qHS - Continue Coreg 3.125 mg bid -s/p Catheterization per Dr. 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 Has proteinuria and oliguria with acute decrease in renal function. Her baseline creatinine is about 2.8, now with doubling of creatinine. Also with hyperkalemia and metabolic acidosis. Etiology includes chronic kidney disease with acute exacerbation possibly from poor cardiac output with NSTEMI. Renal ultrasound showing no obstruction, has stone that is non-obstructing. Complement negative Hepatitis profile negative - Nephrology consulted -Continue HD (currently receiving today) -MIGUE, ANCA, SPEP, UPEP pending -IVF per Nephrology -Continue to monitor urine output, electrolytes - Avoid nephrotoxic agents, contrast agents (3) Anemia ICD Codes: D64.9 - Anemia, unspecified Status: Acute Plan: Impression: Hgb 10.6 on admission-> 7.9 04/25. MCV ~100. No leukopenia or thrombocytopenia. Significant renal disease likely is etiology of baseline low Hgb, but unclear why decrease since admission. On Heparin but no obvious source of bleeding. Received catheterization yesterday -Will plan for transfusion of 1 U pRBC with dialysis 04/26 -Will check for occult blood (4) Secondary hyperparathyroidism (of renal origin) ICD Codes: N25.81 - Secondary hyperparathyroidism of renal origin Status: Acute Plan: Patient with secondary hyperparathyroidism with significantly elevated phosphate and low calcium. Intact PTH 364.5 1,25 [place] Vit D pending - Dietary phosphate restriction to 900 mg/day -Consider PhosLo -Dialysis per Nephrology (5) COPD (chronic obstructive pulmonary disease) ICD Codes: J44.9 - Chronic obstructive pulmonary disease, unspecified Status: Chronic Plan: History of COPD with recent upper respiratory symptoms and acute exacerbation, recently diagnosed with pneumonia while on cruise ship and was started on azithromycin. - IV Solumedrol 60 mg q12hrs started 04/21 - DuoNebs q6hrs scheduled - Levaquin empirically, renally dosed, started 04/22 - O2 supplementation with target O2 90% (6) Hyperkalemia ICD Codes: E87.5 - Hyperkalemia; N18.9 - Chronic kidney disease, unspecified Status: Resolved Plan: Hyperkalemia up to 6.0 with acute renal failure. Resolved with hemodialysis. - Continue dialysis per nephrology (7) Hyponatremia ICD Codes: E87.1 - Hypo-osmolality and hyponatremia Status: Resolved Plan: Hyponatremia with acute renal failure, asymptomatic - Free water restriction until sodium improved - Hypertonic saline only if symptomatic or severe - Monitor electrolytes - Hemodialysis per nephrology (8) DM2 (diabetes mellitus, type 2) ICD Codes: E11.9 - Type 2 diabetes mellitus without complications Status: Chronic Plan: History of diabetes type II - Sliding scale insulin with glucose goal of 140-180 (9) HTN (hypertension) ICD Codes: I10 - HTN (hypertension) Status: Chronic Plan: Impression: Mild hypertension during hospitalization with SBP 140s-160 - Continue carvedilol 3.125 bid (10) Hypothyroidism ICD Codes: E03.9 - Hypothyroidism, unspecified Status: Chronic Plan: TSH normal - Levothyroxine 50 mcg daily (11) No contraindication to deep vein thrombosis (DVT) prophylaxis ICD Codes: Z78.9 - Other specified health status Status: Acute Plan: On heparin drip for NSTEMI (12) Nutrition, metabolism, and development symptoms ICD Codes: R63.8 - Other symptoms and signs concerning food and fluid intake Status: Acute Plan: Regular diet 1L free water restriction Phosphate restriction 900 mg/day for hyperphosphatemia Hyponatremia, hyperkalemia Receiving dialysis per nephrology Acute renal failure with CKD, monitor renal function Protonix IV 40 mg daily (Eric Stevenson MD, R3) Problem Qualifiers (1) Acute on chronic kidney failure: Qualified Codes: N17.9 - Acute kidney failure, unspecified; N18.9 - Chronic kidney disease, unspecified (2) Anemia: Qualified Codes: D64.9 - Anemia, unspecified (3) DM2 (diabetes mellitus, type 2): (4) HTN (hypertension): Qualified Codes: I10 - Essential (primary) hypertension (5) Hypothyroidism: Qualified Codes: E03.9 - Hypothyroidism, unspecified Eric Stevenson MD, R3 Apr 25, 2017 08:50 Cris Santana MD Apr 28, 2017 11:58
[2017-04-25] MEDS: DOCUSATE SODIUM 50 MG/SENNA 8.6 MG TAB PO SCH ×2 (09:00→21:06)
[2017-04-25] MEDS: CALCIUM ACETATE 667 MG CAP PO SCH ×3 (09:09→18:18)
[2017-04-25] MEDS: CALCITRIOL 0.25 MCG CAP PO SCH (09:10)
[2017-04-25] MEDS: CARVEDILOL 3.125 MG TAB PO SCH ×2 (09:10→21:05)
[2017-04-25] MEDS: ASPIRIN 81 MG CHEW TAB CHEW SCH (09:10)
[2017-04-25] MEDS: PANTOPRAZOLE SODIUM 40 MG VIAL IV PUSH SCH (09:10)
[2017-04-25] MEDS: CYANOCOBALAMIN 1,000 MCG TAB PO SCH (09:10)
[2017-04-25] MEDS: methylPREDNISolone SOD SUCC 125 MG/2 ML VIAL IV PUSH SCH ×2 (09:10→21:04)
[2017-04-25] MEDS: SODIUM CHLORIDE 0.9% FLUSH 10 ML FLUSH IV FLUSH SCH ×4 (09:11→21:05)
--- NOTE | 2017-04-25 09:38 | HHI.NPPN ---
Subjective Renal Failure: Chronic, Acute, Stage IV Interval History Sitting up in bed, less short of breath. Plan for CABG x 3 on Monday. She was dialyzed after cardiac cath yesterday. (Cris Telles) Review of Systems General Constitutional: Fatigue (Cris Telles) Respiratory Lungs: SOB (Cris Telles) Cardiovascular Cardiac: HAIR (Cris Telles) Objective Data Data 04/25/17 04/26/17 19:00 07:00 Intake Total 212 ml Balance 212 ml IV Total 212 ml Vital Signs Date Time Temp Pulse Resp B/P (MAP) Pulse Ox O2 Delivery O2 Flow Rate FiO2 04/25/17 07:00 97 Nasal Cannula 2.00 04/25/17 06:00 67 04/25/17 04:00 97.4 66 16 128/60 (82) 100 04/25/17 04:00 66 04/25/17 02:00 70 04/25/17 00:00 98.7 75 17 145/59 (87) 95 04/25/17 00:00 75 04/24/17 22:00 78 04/24/17 21:12 99 Nasal Cannula 2.00 04/24/17 20:00 98.7 94 29 121/61 (81) 94 04/24/17 20:00 94 04/24/17 19:00 Nasal Cannula 2.00 04/24/17 18:00 83 04/24/17 17:44 83 15 97 04/24/17 17:30 84 23 102/63 (76) 97 04/24/17 17:15 90 31 121/71 (88) 96 04/24/17 17:15 90 31 121/71 (88) 96 04/24/17 17:00 84 21 109/60 (76) 98 04/24/17 17:00 84 21 109/60 (76) 98 04/24/17 16:45 85 22 109/66 (80) 97 04/24/17 16:45 85 22 109/66 (80) 97 04/24/17 16:44 87 28 98 04/24/17 16:30 88 20 130/68 (88) 96 04/24/17 16:30 88 20 130/68 (88) 96 04/24/17 16:15 85 20 118/59 (78) 93 04/24/17 16:15 85 20 118/59 (78) 93 04/24/17 16:00 97.4 88 21 98/58 (71) 93 04/24/17 16:00 88 04/24/17 16:00 88 21 98/58 (71) 93 04/24/17 15:45 88 21 99/59 (72) 95 04/24/17 15:45 88 21 99/59 (72) 95 04/24/17 15:44 95 22 96 04/24/17 15:31 92 25 103/59 (74) 96 04/24/17 15:31 92 25 103/59 (74) 96 04/24/17 15:21 100 20 154/72 (99) 99 04/24/17 15:21 100 20 154/72 (99) 99 04/24/17 15:15 93 31 208/81 (123) 100 04/24/17 15:15 93 31 208/81 (123) 100 04/24/17 15:01 83 27 146/68 (94) 98 04/24/17 15:01 83 27 146/68 (94) 98 04/24/17 15:00 80 26 98 04/24/17 14:46 85 29 159/93 (115) 96 04/24/17 14:46 85 29 159/93 (115) 96 04/24/17 14:44 88 36 97 04/24/17 14:31 76 19 159/77 (104) 97 04/24/17 14:31 76 19 159/77 (104) 97 04/24/17 14:15 89 32 194/85 (121) 98 04/24/17 14:15 89 32 194/85 (121) 98 04/24/17 14:00 72 28 157/72 (100) 97 04/24/17 14:00 72 28 157/72 (100) 97 04/24/17 14:00 72 04/24/17 13:45 76 18 173/75 (107) 96 04/24/17 13:45 76 18 173/75 (107) 96 04/24/17 13:30 79 25 177/81 (113) 96 04/24/17 13:30 79 25 177/81 (113) 96 04/24/17 13:15 81 18 156/72 (100) 95 04/24/17 13:15 81 18 156/72 (100) 95 04/24/17 13:06 96 Nasal Cannula 2.00 04/24/17 13:00 85 18 141/59 (86) 95 04/24/17 13:00 85 18 141/59 (86) 95 04/24/17 13:00 85 18 141/59 (86) 95 04/24/17 12:45 84 16 156/72 (100) 97 04/24/17 12:45 84 16 156/72 (100) 97 04/24/17 12:31 80 15 174/73 (106) 96 04/24/17 12:31 80 15 174/73 (106) 96 04/24/17 12:15 85 15 154/64 (94) 93 04/24/17 12:15 85 15 154/64 (94) 93 04/24/17 12:00 97.7 84 18 167/78 (107) 94 04/24/17 12:00 84 04/24/17 12:00 84 18 167/78 (107) 94 04/24/17 11:45 88 15 135/68 (90) 93 04/24/17 11:45 88 15 135/68 (90) 93 04/24/17 11:30 80 14 164/78 (106) 96 04/24/17 11:30 80 14 164/78 (106) 96 04/24/17 11:15 78 13 175/81 (112) 95 04/24/17 11:15 78 13 175/81 (112) 95 04/24/17 11:00 85 27 134/77 (96) 99 04/24/17 11:00 85 27 134/77 (96) 99 04/24/17 10:52 75 16 175/76 (109) 98 04/24/17 10:52 75 16 175/76 (109) 98 04/24/17 10:45 75 22 98 04/24/17 10:30 74 13 168/76 (106) 100 04/24/17 10:30 74 13 168/76 (106) 100 04/24/17 10:16 77 13 190/79 (116) 100 04/24/17 10:16 77 13 190/79 (116) 100 04/24/17 10:00 86 (Cris Telles) -: 04/25/17 0438 04/25/17 0438 Imaging Last 72 hours Impressions Lower Extremity Ultrasound 04/24/17 0000 Signed Impressions: Service Date/Time: Monday, April 24, 2017 17:38 - CONCLUSION: 1. Venous mapping as above Bi Billings MD Lower Extremity Ultrasound 04/24/17 0000 Signed Impressions: Service Date/Time: Monday, April 24, 2017 17:25 - CONCLUSION: No DVT is identified within either lower extremity. Keegan Santos MD Tubes & Lines: Vas-Cath, Vazquez Drip Comment Heparin (Cris Telles B. EMMA) Physical Exam General Appearance: Well Developed, Well Nourished, No Acute Distress, Comfortable (Cris Telles B. DIRECTOR PAID MEDIA) Eyes Eye Exam: Pupils Equal (Cris Telles B. DIRECT[employer] PA[employer] MEDIA) Throat Throat Exam: Oral Mucosa [place] & Moist (Cris Telles B. DIRECT[employer] PA[employer] MEDIA) Neck Neck Exam: Neck Supple (Cris Telles) Pulmonary Resp Exam: No Distress, Crackles, Rhonchi, Sputum, Decreased Bases, Diminished Breath Sounds (Cris Telles B. [employer]) Cardiology CV Exam: Regular, Normal Sinus Rhythm, Good Perfusion (Cris Telles B. [employer] MEDIA) Gastrointestinal/Abdomen GI Exam: Soft, Non-Tender, Bowel Sounds Present (Cris Telles B. [employer] PA[employer] MEDIA) Genitourinary Exam: Clear Urine (Cris Telles BAr BEARDP) Musculoskeletal MS Exam: Joints Intact, Normal Tone, Good Strength (Cris Telles BAr CARTER) Integumentary Skin Exam: Clear, Warm, Dry, Intact (Cris Telles BAr CARTER) Extremeties Extremities Exam: Pedal Pulses Palpable, Trace Edema (Cris Telles B. [employer] MEDIA) Neurologic Neuro Exam: Alert, Awake, Oriented, Speech Clear, Moving All Extremities (Cris Telles B. DIRECT[employer] MEDIA) Psychiatric Psych Exam: Appropriate Responses (Cris Telles) Assessment/Plan Discussed Condition With: Patient Assessment Summary: LEEANN/Acute Renal Failure, [place] Hyperparathyroid, Proteinuria, Hypertension, Diabetes Mellitus, CKD Stage IV Electrolyte Assessment: Hypocalcemia Problem List: (1) Acute on chronic kidney failure ICD Codes: N17.9 - Acute kidney failure, unspecified; N18.9 - Chronic kidney disease, unspecified Status: Acute Plan: She has advanced renal disease, Creatinine 2.8 at baseline, CKD 4 Suspected underlying diabetic nephropathy, with 7.5 grams proteinuria MIGUE, hepatitis panel, and complement levels normal; ANCA panel, serum protein electrophoresis, and urine immunofixation are all still pending. LEEANN likely due to NSTEMI and decreased renal perfusion HD on 04/22 and 04/24 Urine output is lower but she had 3L fluid removal with HD yesterday (after cath ) Off IVF, tolerating oral fluids Repeat renal panel in AM Await renal recovery It remains to be seen if she will require more dialysis treatments, given upcoming CABG. Leave temporary dialysis catheter in place for now. Remove vazquez, continue to monitor urine output (2) DM2 (diabetes mellitus, type 2) ICD Codes: E11.9 - Type 2 diabetes mellitus without complications Status: Chronic Plan: Insulin as needed to maintain glucose of 140-180 mg/dL while hospitalized (3) NSTEMI (non-ST elevated myocardial infarction) ICD Codes: I21.4 - Non-ST elevation (NSTEMI) myocardial infarction Status: Acute Plan: Cardiology is following Continues on heparin gtt; also on statin, BB 2D echo: LVH, EF 45-50% s/p cardiac catheterization with multivessel disease Plan for CABG x 3 on Monday (4) Metabolic bone disease ICD Codes: E88.9 - Metabolic disorder, unspecified; M90.80 - Osteopathy in diseases classified elsewhere, unspecified site Plan: Calcium acetate has been started Start calcitriol for secondary hyperparathyroidism (5) Hyperkalemia ICD Codes: E87.5 - Hyperkalemia; N18.9 - Chronic kidney disease, unspecified Status: Resolved Plan: Due to reduction in GFR and metabolic acidosis Improved with dialysis, monitor for recurrence (6) Metabolic acidosis ICD Codes: E87.2 - Acidosis Status: Acute Plan: Corrected, stop Bicarb gtt Follow metabolic profile (7) COPD with acute exacerbation ICD Codes: J44.1 - Chronic obstructive pulmonary disease with (acute) exacerbation Plan: On nebulizers, oxygen She is also on Levaquin and solumedrol (Cris Telles) Problem List: (1) Acute on chronic kidney failure ICD Codes: N17.9 - Acute kidney failure, unspecified; N18.9 - Chronic kidney disease, unspecified Status: Acute Plan: She has advanced renal disease, Creatinine 2.8 at baseline, CKD 4 Suspected underlying diabetic nephropathy, with 7.5 grams proteinuria MIGUE, hepatitis panel, and complement levels normal; ANCA panel, serum protein electrophoresis, and urine immunofixation are all still pending. LEEANN likely due to NSTEMI and decreased renal perfusion HD on 04/22 and 04/24 Urine output is lower but she had 3L fluid removal with HD yesterday (after cath ) Off IVF, tolerating oral fluids Repeat renal panel in AM Await renal recovery It remains to be seen if she will require more dialysis treatments, given upcoming CABG. Leave temporary dialysis catheter in place for now. Remove vazquez, continue to monitor urine output (2) DM2 (diabetes mellitus, type 2) ICD Codes: E11.9 - Type 2 diabetes mellitus without complications Status: Chronic Plan: Insulin as needed to maintain glucose of 140-180 mg/dL while hospitalized (3) NSTEMI (non-ST elevated myocardial infarction) ICD Codes: I21.4 - Non-ST elevation (NSTEMI) myocardial infarction Status: Acute Plan: Cardiology is following Continues on heparin gtt; also on statin, BB 2D echo: LVH, EF 45-50% s/p cardiac catheterization with multivessel disease Plan for CABG x 3 on Monday (4) Metabolic bone disease ICD Codes: E88.9 - Metabolic disorder, unspecified; M90.80 - Osteopathy in diseases classified elsewhere, unspecified site Plan: Calcium acetate has been started Start calcitriol for secondary hyperparathyroidism (5) Hyperkalemia ICD Codes: E87.5 - Hyperkalemia; N18.9 - Chronic kidney disease, unspecified Status: Resolved Plan: Due to reduction in GFR and metabolic acidosis Improved with dialysis, monitor for recurrence (6) Metabolic acidosis ICD Codes: E87.2 - Acidosis Status: Acute Plan: Corrected, stop Bicarb gtt Follow metabolic profile (7) COPD with acute exacerbation ICD Codes: J44.1 - Chronic obstructive pulmonary disease with (acute) exacerbation Plan: On nebulizers, oxygen She is also on Levaquin and solumedrol Plan patient was seen and examined. Agree with above assessment and plan. It remains to be seen if she will need continued dialysis support. (Fantasma Corral MD) Problem Qualifiers (1) Acute on chronic kidney failure: Qualified Codes: N17.9 - Acute kidney failure, unspecified; N18.9 - Chronic kidney disease, unspecified (2) DM2 (diabetes mellitus, type 2): Cris Telles Apr 25, 2017 09:38 Fantasma Corral MD Apr 25, 2017 09:51
--- NOTE | 2017-04-25 10:42 | PD.CAR.PN ---
CVT Progress Note Subjective/Hospital Course: 61/ female patient who presented to [place] [facility] emergency department on 04/21. She had recently been on a cruise to the [facility] a week prior to coming in. She became sick during the cruise, developed cough, generalized malaise, some intermittent nausea and vomiting. She was seen by her primary care physician, was treated with a Z-Caleb and Tesminnaon Gabriella. She also was found to have acute kidney injury with chronic kidney disease stage IV. She has had a history of some kidney problems she says in the past but she was to follow up with her primary and be re-evaluated in June. There was no talk of any dialysis at that time. Upon her arrival she was found to have an elevated troponin to 7.85, was started on a heparin drip and her creatinine was 5.98, and her baseline is about 2.8, probably secondary to diabetic neuropathy. They did start hemodialysis on 04/22 via a right IJ Vas-Cath. She underwent cardiac catheterization today by Dr. Cole which showed a 70% lesion in the proximal LAD and 80% in the proximal portion of the circumflex. The first OM had an 80% lesion. The mid circ was a subtotally occluded lesion and distal to this was a 90% lesion before supplying another posterior lateral branch. The right coronary artery was nondominant with an 80% lesion. Her ejection fraction was 45 to 50% by echocardiogram, some mild LVH, also some mild mitral valve replacement. We were consulted to evaluate for coronary artery bypass grafting. PMH: COPD, 2. Diabetes mellitus type , Hypertension, Hyperlipidemia, Peripheral neuropathy, Chronic kidney disease, stage IV, currently now on dialysis, History of gastric ulcers, Nonspecific colitis, Diverticulosis, Hypothyroidism, Recent admission also with COPD exacerbation 04/25 await PFT results still has cough, but improved, dialyzed yesterday creatinine slightly improved, unable to complete carotid US 2/2 right IJ vas cath US vein mapping noted, will discuss with dr Gonzales agree with transfer to [facility], consult PT/ OOB Objective: GENERAL: SKIN: Warm and dry. HEAD: Normocephalic. EYES: No scleral icterus. No injection or drainage. NECK: Supple, trachea midline. No JVD or lymphadenopathy. CARDIOVASCULAR: Regular rate and rhythm without murmurs, gallops, or rubs. RESPIRATORY: Breath sounds equal bilaterally. No accessory muscle use. faint exp wheeze GASTROINTESTINAL: Abdomen soft, non-tender, nondistended. MUSCULOSKELETAL: No cyanosis, or edema. BACK: Nontender without obvious deformity. No CVA tenderness. Vital Signs Date Time Temp Pulse Resp B/P (MAP) Pulse Ox O2 Delivery O2 Flow Rate FiO2 04/25/17 10:16 100 Nasal Cannula 2.00 04/25/17 07:00 97 Nasal Cannula 2.00 04/25/17 06:00 67 04/25/17 04:00 97.4 66 16 128/60 (82) 100 04/25/17 04:00 66 04/25/17 02:00 70 04/25/17 00:00 98.7 75 17 145/59 (87) 95 04/25/17 00:00 75 04/24/17 22:00 78 04/24/17 21:12 99 Nasal Cannula 2.00 04/24/17 20:00 98.7 94 29 121/61 (81) 94 04/24/17 20:00 94 04/24/17 19:00 Nasal Cannula 2.00 04/24/17 18:00 83 04/24/17 17:44 83 15 97 04/24/17 17:30 84 23 102/63 (76) 97 04/24/17 17:15 90 31 121/71 (88) 96 04/24/17 17:15 90 31 121/71 (88) 96 04/24/17 17:00 84 21 109/60 (76) 98 04/24/17 17:00 84 21 109/60 (76) 98 04/24/17 16:45 85 22 109/66 (80) 97 04/24/17 16:45 85 22 109/66 (80) 97 04/24/17 16:44 87 28 98 04/24/17 16:30 88 20 130/68 (88) 96 04/24/17 16:30 88 20 130/68 (88) 96 04/24/17 16:15 85 20 118/59 (78) 93 04/24/17 16:15 85 20 118/59 (78) 93 04/24/17 16:00 97.4 88 21 98/58 (71) 93 04/24/17 16:00 88 04/24/17 16:00 88 21 98/58 (71) 93 04/24/17 15:45 88 21 99/59 (72) 95 04/24/17 15:45 88 21 99/59 (72) 95 04/24/17 15:44 95 22 96 04/24/17 15:31 92 25 103/59 (74) 96 04/24/17 15:31 92 25 103/59 (74) 96 04/24/17 15:21 100 20 154/72 (99) 99 04/24/17 15:21 100 20 154/72 (99) 99 04/24/17 15:15 93 31 208/81 (123) 100 04/24/17 15:15 93 31 208/81 (123) 100 04/24/17 15:01 83 27 146/68 (94) 98 04/24/17 15:01 83 27 146/68 (94) 98 04/24/17 15:00 80 26 98 04/24/17 14:46 85 29 159/93 (115) 96 04/24/17 14:46 85 29 159/93 (115) 96 04/24/17 14:44 88 36 97 04/24/17 14:31 76 19 159/77 (104) 97 04/24/17 14:31 76 19 159/77 (104) 97 04/24/17 14:15 89 32 194/85 (121) 98 04/24/17 14:15 89 32 194/85 (121) 98 04/24/17 14:00 72 28 157/72 (100) 97 04/24/17 14:00 72 28 157/72 (100) 97 04/24/17 14:00 72 04/24/17 13:45 76 18 173/75 (107) 96 04/24/17 13:45 76 18 173/75 (107) 96 04/24/17 13:30 79 25 177/81 (113) 96 04/24/17 13:30 79 25 177/81 (113) 96 04/24/17 13:15 81 18 156/72 (100) 95 04/24/17 13:15 81 18 156/72 (100) 95 04/24/17 13:06 96 Nasal Cannula 2.00 04/24/17 13:00 85 18 141/59 (86) 95 04/24/17 13:00 85 18 141/59 (86) 95 04/24/17 13:00 85 18 141/59 (86) 95 04/24/17 12:45 84 16 156/72 (100) 97 04/24/17 12:45 84 16 156/72 (100) 97 04/24/17 12:31 80 15 174/73 (106) 96 04/24/17 12:31 80 15 174/73 (106) 96 04/24/17 12:15 85 15 154/64 (94) 93 04/24/17 12:15 85 15 154/64 (94) 93 04/24/17 12:00 97.7 84 18 167/78 (107) 94 04/24/17 12:00 84 04/24/17 12:00 84 18 167/78 (107) 94 04/24/17 11:45 88 15 135/68 (90) 93 04/24/17 11:45 88 15 135/68 (90) 93 04/24/17 11:30 80 14 164/78 (106) 96 04/24/17 11:30 80 14 164/78 (106) 96 04/24/17 11:15 78 13 175/81 (112) 95 04/24/17 11:15 78 13 175/81 (112) 95 04/24/17 11:00 85 27 134/77 (96) 99 04/24/17 11:00 85 27 134/77 (96) 99 04/24/17 10:52 75 16 175/76 (109) 98 04/24/17 10:52 75 16 175/76 (109) 98 04/24/17 10:45 75 22 98 Labs: Laboratory Tests Test 04/25/17 04:38 White Blood Count 10.2 TH/MM3 (4.0-11.0) Red Blood Count 2.36 MIL/MM3 (4.00-5.30) Hemoglobin 7.9 GM/DL (11.6-15.3) Hematocrit 23.3 % (35.0-46.0) Mean Corpuscular Volume 98.7 FL (80.0-100.0) Mean Corpuscular Hemoglobin 33.7 PG (27.0-34.0) Mean Corpuscular Hemoglobin Concent 34.1 % (32.0-36.0) Red Cell Distribution Width 12.7 % (11.6-17.2) Platelet Count 164 TH/MM3 (150-450) Mean Platelet Volume 9.2 FL (7.0-11.0) Neutrophils (%) (Auto) 91.2 % (16.0-70.0) Lymphocytes (%) (Auto) 4.0 % (9.0-44.0) Monocytes (%) (Auto) 4.7 % (0.0-8.0) Eosinophils (%) (Auto) 0.0 % (0.0-4.0) Basophils (%) (Auto) 0.1 % (0.0-2.0) Neutrophils # (Auto) 9.3 TH/MM3 (1.8-7.7) Lymphocytes # (Auto) 0.4 TH/MM3 (1.0-4.8) Monocytes # (Auto) 0.5 TH/MM3 (0-0.9) Eosinophils # (Auto) 0.0 TH/MM3 (0-0.4) Basophils # (Auto) 0.0 TH/MM3 (0-0.2) CBC Comment DIFF FINAL Differential Comment Activated Partial Thromboplast Time 60.7 SEC (24.3-30.1) Blood Urea Nitrogen 75 MG/DL (7-18) Creatinine 4.13 MG/DL (0.50-1.00) Random Glucose 219 MG/DL (74-106) Total Protein 4.6 GM/DL (6.4-8.2) Albumin 1.7 GM/DL (3.4-5.0) Calcium Level 7.2 MG/DL (8.5-10.1) Alkaline Phosphatase 63 U/L (45-117) Aspartate Amino Transf (AST/SGOT) 11 U/L (15-37) Alanine Aminotransferase (ALT/SGPT) 17 U/L (10-53) Total Bilirubin 0.2 MG/DL (0.2-1.0) Sodium Level 136 MEQ/L (136-145) Potassium Level 3.8 MEQ/L (3.5-5.1) Chloride Level 98 MEQ/L (98-107) Carbon Dioxide Level 25.5 MEQ/L (21.0-32.0) Anion Gap 13 MEQ/L (5-15) Estimat Glomerular Filtration Rate 11 ML/MIN (>89) Protein Corrected Calcium 8.6 MG/DL (8.5-10.1) Result Diagram: 04/25/17 0438 04/25/17 0438 (1) NSTEMI (non-ST elevated myocardial infarction) Plan: ASA, statin , BB (2) Acute on chronic kidney failure Plan: on dialysis (3) HTN (hypertension) (4) HLD (hyperlipidemia) (5) Anemia Problem Qualifiers (1) Acute on chronic kidney failure: Qualified Codes: N17.9 - Acute kidney failure, unspecified; N18.9 - Chronic kidney disease, unspecified (2) HTN (hypertension): Qualified Codes: I10 - Essential (primary) hypertension (3) HLD (hyperlipidemia): Qualified Codes: E78.5 - Hyperlipidemia, unspecified (4) Anemia: Qualified Codes: D64.9 - Anemia, unspecified Terrie Medina Apr 25, 2017 10:42
--- NOTE | 2017-04-25 11:27 | PD.CARD.PN ---
Subjective Subjective Remarks No further chest pain/SOB Objective Medications Current Medications Medications (Trade) Dose Ordered Sig/Des Route Start Time Stop Time Status Last Admin (Heparin Inj) 5,000 units UNSCH PRN IV PUSH 04/21/17 11:45 (Heparin Inj) 2,500 units UNSCH PRN IV PUSH 04/21/17 11:45 Heparin Sodium/ Dextrose 250 ml @ 9 mls/hr TITRATE PRN IV 04/21/17 05:45 04/24/17 18:17 (NS Flush) 2 ml UNSCH PRN IV FLUSH 04/21/17 06:45 (NS Flush) 2 ml BID IV FLUSH 04/21/17 09:00 04/25/17 09:11 (Protonix Inj) 40 mg DAILY IV PUSH 04/21/17 09:00 04/25/17 09:10 (Duoneb Neb) 1 ampule Q4HR NEB PRN INH 04/21/17 06:45 Miscellaneous Information 1 Q361D XX 04/21/17 06:45 (Chlorhexidine 2% Cloth) 3 pack Taper DAILY@04 TOP 04/22/17 04:00 04/18/18 03:59 04/25/17 04:00 (Chlorhexidine 2% Cloth) 3 pack UNSCH PRN TOP 04/21/17 06:45 (Malaika-Colace) 1 tab BID PO 04/21/17 09:00 04/24/17 20:51 (Milk Of Magnesia Liq) 30 ml Q12H PRN PO 04/21/17 06:45 (Senokot) 17.2 mg Q12H PRN PO 04/21/17 06:45 (Dulcolax Supp) 10 mg DAILY PRN RECTAL 04/21/17 06:45 (Lactulose Liq) 30 ml DAILY PRN PO 04/21/17 06:45 (Aspirin Chew) 81 mg DAILY CHEW 04/22/17 09:00 04/25/17 09:10 (Coreg) 3.125 mg Q12HR PO 04/21/17 09:00 04/25/17 09:10 (Lipitor) 10 mg HS PO 04/21/17 21:00 04/24/17 20:51 (Vitamin B12) 500 mcg DAILY PO 04/21/17 09:00 04/25/17 09:10 (Synthroid) 50 mcg DAILY@0600 PO 04/21/17 07:00 04/25/17 06:19 (NovoLOG SUPPLEMENTAL SCALE) 1 Q4HR SQ 04/21/17 08:00 04/25/17 08:00 (SoluMEDROL INJ) 60 mg Q12HR IV PUSH 04/21/17 11:30 04/25/17 09:10 Levofloxacin/ Dextrose 100 ml @ 100 mls/hr Q48H IV 04/21/17 12:00 04/23/17 12:57 (Restoril) 15 mg HS PRN PO 04/21/17 20:45 04/24/17 23:44 Sodium Chloride 1,000 ml @ 0 mls/hr Q0M PRN OTHER 04/22/17 14:04 (Heparin Inj) 8,000 units UNSCH PRN IV FLUSH 04/22/17 14:15 04/24/17 12:11 Sodium Chloride 1,000 ml @ 200 mls/hr Q5H PRN IV 04/22/17 14:04 Sodium Chloride 1,000 ml @ 0 mls/hr Q0M PRN OTHER 04/22/17 14:04 (Mannitol Inj) 12.5 gm UNSCH PRN IV 04/22/17 14:15 Albumin Human 100 ml @ 60 mls/hr UNSCH PRN IV 04/22/17 14:15 (NS Flush) 5 ml UNSCH PRN IV FLUSH 04/22/17 14:15 (Heparin Inj) UNSCH PRN .XX 04/22/17 14:15 (Gentamicin (Dialysis) Inj) 20 mg UNSCH PRN OTHER 04/22/17 14:15 04/24/17 12:10 (Zofran Inj) 4 mg UNSCH PRN IV PUSH 04/22/17 14:15 (Tylenol) 650 mg UNSCH PRN PO 04/22/17 14:15 04/24/17 11:50 (Benadryl) 25 mg UNSCH PRN PO 04/22/17 14:15 (Nitrostat Sl) 0.4 mg UNSCH PRN SL 04/22/17 14:15 (Catapres) 0.1 mg UNSCH PRN PO 04/22/17 14:15 04/22/17 21:36 (Gelfoam 12 Mm/7 Mm Top) 1 foam UNSCH PRN TOP 04/22/17 14:15 (Apresoline Inj) 10 mg Q30M PRN IV PUSH 04/23/17 13:15 04/24/17 06:29 (Phoslo) 2,001 mg TID PO 04/23/17 18:00 04/25/17 09:09 (Rocaltrol) 0.25 mcg DAILY PO 04/24/17 09:15 04/25/17 09:10 (Atropine Inj) 0.5 mg UNSCH PRN IV PUSH 04/24/17 10:00 (NS Flush) 2 ml BID IV FLUSH 04/24/17 21:00 04/25/17 09:11 (NS Flush) 2 ml UNSCH PRN IV FLUSH 04/24/17 15:45 Papaverine HCl 60 mg/Nitroglycerin 100 mcg/Diltiazem HCl 100 mg/Sodium Chloride 100 ml @ 0 mls/hr [employer] IRR[employer]ATION 04/24/17 15:45 05/01/17 15:44 Cefazolin Sodium 500 mg/Sodium Chloride 505 ml @ 0 mls/hr [employer] 04/24/17 15:45 05/01/17 15:44 Cefazolin Sodium/ Dextrose 50 ml @ 150 mls/hr [employer] IV 04/24/17 15:45 05/01/17 15:44 (Lopressor) 12.5 mg [employer] PO 04/24/17 15:45 05/01/17 15:44 (Hibiclens 4% Top Soln) 1 applic [employer] TOPICAL 04/24/17 15:45 05/01/17 15:44 Insulin Human Regular 100 units/ Sodium Chloride 100 ml @ 3 mls/hr TITRATE PRN IV 04/24/17 15:45 05/01/17 15:44 (D50w (Vial) Inj) 50 ml UNSCH PRN IV PUSH 04/24/17 15:45 Sodium Chloride 250 ml @ 15 mls/hr ONCE ONCE IV 04/25/17 08:45 04/26/17 01:24 04/25/17 09:26 Vital Signs / I&O Vital Signs Date Time Temp Pulse Resp B/P (MAP) Pulse Ox O2 Delivery O2 Flow Rate FiO2 04/25/17 10:30 73 163/79 (107) 99 04/25/17 10:16 100 Nasal Cannula 2.00 04/25/17 10:01 67 168/75 (106) 100 04/25/17 10:00 67 04/25/17 09:30 70 192/86 (121) 100 04/25/17 09:16 74 168/88 (114) 87 04/25/17 09:01 83 172/74 (106) 100 04/25/17 08:46 159/75 (103) 100 04/25/17 08:30 71 145/67 (93) 97 04/25/17 08:15 66 163/75 (104) 94 04/25/17 08:00 97.7 67 16 144/70 (94) 98 04/25/17 08:00 67 04/25/17 07:45 71 150/69 (96) 04/25/17 07:30 68 152/64 (93) 04/25/17 07:16 67 150/67 (94) 04/25/17 07:00 97 Nasal Cannula 2.00 04/25/17 07:00 79 130/61 (84) 04/25/17 06:00 67 04/25/17 04:00 97.4 66 16 128/60 (82) 100 04/25/17 04:00 66 04/25/17 02:00 70 04/25/17 00:00 98.7 75 17 145/59 (87) 95 04/25/17 00:00 75 04/24/17 22:00 78 04/24/17 21:12 99 Nasal Cannula 2.00 04/24/17 20:00 98.7 94 29 121/61 (81) 94 04/24/17 20:00 94 04/24/17 19:00 Nasal Cannula 2.00 04/24/17 18:00 83 04/24/17 17:44 83 15 97 04/24/17 17:30 84 23 102/63 (76) 97 04/24/17 17:15 90 31 121/71 (88) 96 04/24/17 17:15 90 31 121/71 (88) 96 04/24/17 17:00 84 21 109/60 (76) 98 04/24/17 17:00 84 21 109/60 (76) 98 04/24/17 16:45 85 22 109/66 (80) 97 04/24/17 16:45 85 22 109/66 (80) 97 04/24/17 16:44 87 28 98 04/24/17 16:30 88 20 130/68 (88) 96 04/24/17 16:30 88 20 130/68 (88) 96 04/24/17 16:15 85 20 118/59 (78) 93 04/24/17 16:15 85 20 118/59 (78) 93 04/24/17 16:00 97.4 88 21 98/58 (71) 93 04/24/17 16:00 88 04/24/17 16:00 88 21 98/58 (71) 93 04/24/17 15:45 88 21 99/59 (72) 95 04/24/17 15:45 88 21 99/59 (72) 95 04/24/17 15:44 95 22 96 04/24/17 15:31 92 25 103/59 (74) 96 04/24/17 15:31 92 25 103/59 (74) 96 04/24/17 15:21 100 20 154/72 (99) 99 04/24/17 15:21 100 20 154/72 (99) 99 04/24/17 15:15 93 31 208/81 (123) 100 04/24/17 15:15 93 31 208/81 (123) 100 04/24/17 15:01 83 27 146/68 (94) 98 04/24/17 15:01 83 27 146/68 (94) 98 04/24/17 15:00 80 26 98 04/24/17 14:46 85 29 159/93 (115) 96 04/24/17 14:46 85 29 159/93 (115) 96 04/24/17 14:44 88 36 97 04/24/17 14:31 76 19 159/77 (104) 97 04/24/17 14:31 76 19 159/77 (104) 97 04/24/17 14:15 89 32 194/85 (121) 98 04/24/17 14:15 89 32 194/85 (121) 98 04/24/17 14:00 72 28 157/72 (100) 97 04/24/17 14:00 72 28 157/72 (100) 97 04/24/17 14:00 72 04/24/17 13:45 76 18 173/75 (107) 96 04/24/17 13:45 76 18 173/75 (107) 96 04/24/17 13:30 79 25 177/81 (113) 96 04/24/17 13:30 79 25 177/81 (113) 96 04/24/17 13:15 81 18 156/72 (100) 95 04/24/17 13:15 81 18 156/72 (100) 95 04/24/17 13:06 96 Nasal Cannula 2.00 04/24/17 13:00 85 18 141/59 (86) 95 04/24/17 13:00 85 18 141/59 (86) 95 04/24/17 13:00 85 18 141/59 (86) 95 04/24/17 12:45 84 16 156/72 (100) 97 04/24/17 12:45 84 16 156/72 (100) 97 04/24/17 12:31 80 15 174/73 (106) 96 04/24/17 12:31 80 15 174/73 (106) 96 04/24/17 12:15 85 15 154/64 (94) 93 04/24/17 12:15 85 15 154/64 (94) 93 04/24/17 12:00 97.7 84 18 167/78 (107) 94 04/24/17 12:00 84 04/24/17 12:00 84 18 167/78 (107) 94 04/24/17 11:45 88 15 135/68 (90) 93 04/24/17 11:45 88 15 135/68 (90) 93 04/24/17 11:30 80 14 164/78 (106) 96 04/24/17 11:30 80 14 164/78 (106) 96 I/O 04/24/17 04/24/17 04/24/17 04/25/17 04/25/17 04/25/17 07:00 15:00 23:00 07:00 15:00 23:00 Intake Total 1494 ml 239 ml 564 ml 1542 ml 212 ml Output Total 550 ml 3000 ml 375 ml 200 ml Balance 944 ml -2761 ml 189 ml 1342 ml 212 ml Intake Oral 600 ml IV Total 1494 ml 239 ml 564 ml 942 ml 212 ml Output Urine Total 550 ml 375 ml 200 ml Stool Total 0 ml Hemodialysis 3000 ml # Bowel Movements 0 0 0 Physical Exam GENERAL: NAD, AAOx3 SKIN: Warm and dry. HEAD: Atraumatic. Normocephalic. EYES: Pupils equal and round. No scleral icterus. No injection or drainage. ENT: No nasal bleeding or discharge. Mucous membranes pink and moist. NECK: Trachea midline. No JVD. CARDIOVASCULAR: Regular rate and rhythm. RESPIRATORY: No accessory muscle use. Clear to auscultation. Breath sounds equal bilaterally. GASTROINTESTINAL: Abdomen soft, non-tender, nondistended. Hepatic and splenic margins not palpable. MUSCULOSKELETAL: Extremities without clubbing, cyanosis, or edema. No obvious deformities. Right femoral no hematoma/ecchymosis NEUROLOGICAL: Awake and alert. No obvious cranial nerve deficits. Motor grossly within normal limits. Five out of 5 muscle strength in the arms and legs. Normal speech. PSYCHIATRIC: Appropriate mood and affect; insight and judgment normal. Laboratory Laboratory Tests Test 04/25/17 04:38 White Blood Count 10.2 TH/MM3 Red Blood Count 2.36 MIL/MM3 Hemoglobin 7.9 GM/DL Hematocrit 23.3 % Mean Corpuscular Volume 98.7 FL Mean Corpuscular Hemoglobin 33.7 PG Mean Corpuscular Hemoglobin Concent 34.1 % Red Cell Distribution Width 12.7 % Platelet Count 164 TH/MM3 Mean Platelet Volume 9.2 FL Neutrophils (%) (Auto) 91.2 % Lymphocytes (%) (Auto) 4.0 % Monocytes (%) (Auto) 4.7 % Eosinophils (%) (Auto) 0.0 % Basophils (%) (Auto) 0.1 % Neutrophils # (Auto) 9.3 TH/MM3 Lymphocytes # (Auto) 0.4 TH/MM3 Monocytes # (Auto) 0.5 TH/MM3 Eosinophils # (Auto) 0.0 TH/MM3 Basophils # (Auto) 0.0 TH/MM3 CBC Comment DIFF FINAL Differential Comment Activated Partial Thromboplast Time 60.7 SEC Blood Urea Nitrogen 75 MG/DL Creatinine 4.13 MG/DL Random Glucose 219 MG/DL Total Protein 4.6 GM/DL Albumin 1.7 GM/DL Calcium Level 7.2 MG/DL Alkaline Phosphatase 63 U/L Aspartate Amino Transf (AST/SGOT) 11 U/L Alanine Aminotransferase (ALT/SGPT) 17 U/L Total Bilirubin 0.2 MG/DL Sodium Level 136 MEQ/L Potassium Level 3.8 MEQ/L Chloride Level 98 MEQ/L Carbon Dioxide Level 25.5 MEQ/L Anion Gap 13 MEQ/L Estimat Glomerular Filtration Rate 11 ML/MIN Protein Corrected Calcium 8.6 MG/DL Assessment and Plan Problem List: (1) NSTEMI (non-ST elevated myocardial infarction) ICD Codes: I21.4 - Non-ST elevation (NSTEMI) myocardial infarction Status: Acute (2) Acute on chronic kidney failure ICD Codes: N17.9 - Acute kidney failure, unspecified; N18.9 - Chronic kidney disease, unspecified Status: Acute (3) HTN (hypertension) ICD Codes: I10 - HTN (hypertension) Status: Chronic (4) HLD (hyperlipidemia) ICD Codes: E78.5 - HLD (hyperlipidemia) Status: Chronic (5) Anemia ICD Codes: D64.9 - Anemia, unspecified Status: Acute Assessment and Plan 1) NSTEMI/CAD Multivessel CAD Heparin restarted ASA/BB/Statin CT surgery evaluation 2) LEEANN on CKD HD started 3) Drop in Hgb, most likely procedural Will plan for 1unit PRBC and if recheck not appropriate then plan for CT ABD/ Pelvis without contrast to rule out RPB But clinically appears stable Problem Qualifiers (1) Acute on chronic kidney failure: Qualified Codes: N17.9 - Acute kidney failure, unspecified; N18.9 - Chronic kidney disease, unspecified (2) HTN (hypertension): Qualified Codes: I10 - Essential (primary) hypertension (3) HLD (hyperlipidemia): Qualified Codes: E78.5 - Hyperlipidemia, unspecified (4) Anemia: Qualified Codes: D64.9 - Anemia, unspecified Hemanth Cole DO Apr 25, 2017 11:27
[2017-04-25] MEDS: ACETAMINOPHEN 325 MG TAB PO PRN (12:21)
[2017-04-25] MEDS: LEVOFLOXACIN 500 MG PREMIX INJ 100 ML IV SCH (12:22)
[2017-04-25] MEDS: ATORVASTATIN 10 MG TAB PO SCH (21:06)
[2017-04-25] MEDS: TEMAZEPAM 15 MG CAP PO PRN (21:06)
[2017-04-25 22:00] LABS: AUTOMATED NEUTROPHIL # 12.2 TH/MM3 (1.8-7.7); BASOPHIL % 0.1 % (0.0-2.0); HEMATOCRIT 22.4 % (35.0-46.0); HEMO FLAGS DIFF FINAL; LYMPH % 3.6 % (9.0-44.0); LYMPHOCYTE # 0.5 TH/MM3 (1.0-4.8); MEAN CELL VOLUME 98.4 FL (80.0-100.0); MEAN CORPUSCULAR HEMOGLOBIN 33.5 PG (27.0-34.0); MONO % 3.7 % (0.0-8.0); NEUT % 92.6 % (16.0-70.0); PLATELET COUNT 174 TH/MM3 (150-450); RED BLOOD COUNT 2.27 MIL/MM3 (4.00-5.30); RED CELL DISTRIBUTION WIDTH 12.8 % (11.6-17.2); WHITE BLOOD COUNT 13.2 TH/MM3 (4.0-11.0)
[2017-04-25] MEDS: HEPARIN-D5W 25,000 U/250 ML 250 ML IV PRN (23:37)
[2017-04-26] VITALS (34 sets, daily range): BP systolic 135–207; BP diastolic 60–89; PULSE 66–96; RESP 15–30; TEMP 97.6–98.9; O2SAT 91–99
[2017-04-26] MEDS: hydrALAZINE HCL 20 MG/ML VIAL IV PUSH PRN ×2 (03:31→18:44)
[2017-04-26] MEDS: CHLORHEXIDINE GLUCONATE 2 % 1 PACK (2 CLOTHS) TOP SCH (03:31)
[2017-04-26] MEDS: INSULIN ASPART SUPPLEMENTAL SCALE SQ SCH ×5 (03:31→20:52)
[2017-04-26 04:32] LABS: AUTOMATED NEUTROPHIL # 11.2 TH/MM3 (1.8-7.7); BASOPHIL % 0.1 % (0.0-2.0); LYMPH % 4.4 % (9.0-44.0); LYMPHOCYTE # 0.5 TH/MM3 (1.0-4.8); MEAN CELL VOLUME 98.1 FL (80.0-100.0); MEAN CORPUSCULAR HEMOGLOBIN 32.8 PG (27.0-34.0); MEAN CORPUSCULAR HGB CONC 33.4 % (32.0-36.0); MONO % 3.4 % (0.0-8.0); NEUT % 92.1 % (16.0-70.0); PLATELET COUNT 169 TH/MM3 (150-450); RED BLOOD COUNT 2.12 MIL/MM3 (4.00-5.30); RED CELL DISTRIBUTION WIDTH 12.6 % (11.6-17.2); WHITE BLOOD COUNT 12.2 TH/MM3 (4.0-11.0)
[2017-04-26 04:44] LABS: APTT (PATIENT) 66.2 SEC (24.3-30.1)
[2017-04-26 05:01] LABS: BICARBONATE 26.2 MEQ/L (21.0-32.0); POTASSIUM 4.3 MEQ/L (3.5-5.1)
[2017-04-26 05:14] LABS: HEMO FLAGS DIFF FINAL
[2017-04-26 05:19] LABS: HEMATOCRIT 20.8 % (35.0-46.0)
[2017-04-26 05:23] LABS: CALCIUM-PROTEIN CORRECTED 8.6 MG/DL (8.5-10.1)
[2017-04-26] MEDS: LEVOTHYROXINE SODIUM 50 MCG TAB PO SCH (05:58)
--- NOTE | 2017-04-26 08:33 | HHI.FPPN ---
Subjective Remarks Mrs. Alicia was mildly tachypneic (RR 21-28) with mild HTN (general MAP in mid 90's but max MAP of 113) overnight. Patient has continued abdominal pain which is predominately when coughing; patient feels that it is increasing. No reported shortness of breath or chest pain. (Eric Stevenson MD, R3) Objective Vitals Vital Signs Date Time Temp Pulse Resp B/P (MAP) Pulse Ox O2 Delivery O2 Flow Rate FiO2 04/26/17 06:00 75 04/26/17 04:00 90 04/26/17 04:00 98.8 90 30 135/60 (85) 95 04/26/17 02:00 72 04/26/17 00:00 98.9 69 30 195/78 (117) 96 04/26/17 00:00 69 04/25/17 22:00 79 04/25/17 21:57 98 Nasal Cannula 2.00 04/25/17 20:00 84 04/25/17 20:00 97.5 84 20 172/76 (108) 98 04/25/17 19:00 97 Nasal Cannula 2.00 04/25/17 19:00 79 172/76 (108) 96 04/25/17 18:31 84 147/67 (93) 97 04/25/17 18:01 90 169/76 (107) 97 04/25/17 18:00 89 04/25/17 18:00 89 96 04/25/17 17:30 70 148/67 (94) 97 04/25/17 17:00 68 147/69 (95) 97 04/25/17 16:30 75 148/65 (92) 97 04/25/17 16:00 72 04/25/17 16:00 98.2 72 16 157/73 (101) 97 04/25/17 15:30 75 161/73 (102) 97 04/25/17 15:00 77 174/73 (106) 97 04/25/17 14:31 77 147/67 (93) 97 04/25/17 14:00 77 04/25/17 14:00 77 180/82 (114) 98 04/25/17 13:01 74 173/76 (108) 99 04/25/17 13:00 73 99 04/25/17 12:31 82 149/67 (94) 97 04/25/17 12:01 97.3 75 16 163/71 (101) 98 04/25/17 12:00 78 04/25/17 11:31 77 157/67 (97) 96 04/25/17 11:00 85 177/74 (108) 96 04/25/17 10:30 73 163/79 (107) 99 04/25/17 10:16 100 Nasal Cannula 2.00 04/25/17 10:01 67 168/75 (106) 100 04/25/17 10:00 67 04/25/17 09:30 70 192/86 (121) 100 04/25/17 09:16 74 168/88 (114) 87 04/25/17 09:01 83 172/74 (106) 100 04/25/17 08:46 159/75 (103) 100 I/O 04/25/17 04/25/17 04/25/17 04/26/17 04/26/17 04/26/17 07:00 15:00 23:00 07:00 15:00 23:00 Intake Total 1542 ml 312 ml 598.6 ml 730 ml Output Total 200 ml 450 ml Balance 1342 ml 312 ml 148.6 ml 730 ml Intake Oral 600 ml 420 ml 480 ml IV Total 942 ml 312 ml 178.6 ml 250 ml Output Urine Total 200 ml 450 ml Stool Total 0 ml # Voids 1 # Bowel Movements 0 0 1 (Eric Stevenson MD, R3) Result Diagram: 04/26/17 0333 04/26/17 0333 Imaging Last Impressions Lower Extremity Ultrasound 04/24/17 0000 Signed Impressions: Service Date/Time: Monday, April 24, 2017 17:38 - CONCLUSION: 1. Venous mapping as above Bi Billings MD Chest X-Ray 04/22/17 0600 Signed Impressions: Service Date/Time: Saturday, April 22, 2017 02:19 - CONCLUSION: No acute cardiopulmonary disease identified. Trevor Townsend MD Renal Ultrasound 04/21/17 0000 Signed Impressions: Service Date/Time: Friday, April 21, 2017 17:11 - CONCLUSION: Stone in the lateral left kidney. No evidence of hydronephrosis or solid mass. No evidence of obstruction. Kirill Linder MD Objective Remarks General: Resting in bed, no distress Skin: R groin area visualized; moderate/large bruising present and suggestive of hematoma HEENT: Normocephalic, no nasal discharge CV: RRR, no murmurs. No LE edema. Normal perfusion Lungs: CTAB; decreased air movement. On 2 L O2 with O2 saturations >95%. Abdomen: Soft, nontender, non-distended, normal bowel sounds MSK: Not assessed at this exam- previously right third toe amputated, no swelling or tenderness Neuro: Awake, alert. Grossly normal CN. No peripheral motor/sensory defects appreciated. Procedures Vascath 04/22/17 Initiate hemodialysis 04/22/17 (Eric Stevenson MD, R3) A/P Assessment and Plan 61 yo female with NSTEMI, acute COPD exacerbation, acute renal failure with chronic renal disease requiring hemodialysis. 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 Cardiology and nephrology on board; receiving dialysis. Cath 04/24 with multivessel CAD; plans for CABG. Discharge Planning Receiving dialysis for acute on chronic renal failure and electrolyte disturbance. Planned CT surgery evaluation for multivessel coronary disease (Eric Stevenson MD, R3) Attending Attestation Patient seen and examined. Case reviewed and discussed with the resident team. Agree with plan of care as discussed with me and documented in the resident note. agree with transfusion. spoke to her daughter who is visiting from [place] (Cris Santana MD) Problem List: (1) Anemia ICD Codes: D64.9 - Anemia, unspecified Status: Acute Plan: Impression: Hgb 7 11/8 <- 7.9 11/7 <- 10.6 on admission . MCV ~100. No leukopenia or thrombocytopenia. Significant renal disease likely is etiology of baseline low Hgb, but suspect decrease post-catheterization to be secondary to groin hematoma and/or other hematoma. On Heparin. Received catheterization yesterday -Will plan for transfusion of 2 U pRBC today -Will check for occult blood -Will check non-contrast CT of A/P -Discussed with Cardiology; Heparin will be stopped (2) NSTEMI (non-ST elevated myocardial infarction) ICD Codes: I21.4 - Non-ST elevation (NSTEMI) myocardial infarction Status: Acute Plan: Impression: Troponin elevated at admission along with atypical chest pain. Non-specific ST-T wave changes on initial EKG's. ECHO with EF of 45-50% - Cardiology consulted -Heparin drip initiated per Cardiology -Will d/c due to suspected hematoma and anemia - Continue aspirin 81 mg daily - Continue Lipitor 10 mg qHS - Continue Coreg 3.125 mg bid -s/p Catheterization per Dr. 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 Has proteinuria and oliguria with acute decrease in renal function. Her baseline creatinine is about 2.8, now with doubling of creatinine. Also with hyperkalemia and metabolic acidosis. Etiology includes chronic kidney disease with acute exacerbation possibly from poor cardiac output with NSTEMI. Renal ultrasound showing no obstruction, has stone that is non-obstructing Complement negative MIGUE negative Hepatitis profile negative - Nephrology consulted -S/P Dialysis 04/22 and 04/24 -Will monitor labs and determine whether additional dialysis pending - ANCA, SPEP, UPEP pending -IVF per Nephrology -Continue to monitor urine output, electrolytes - Avoid nephrotoxic agents, contrast agents (4) Secondary hyperparathyroidism (of renal origin) ICD Codes: N25.81 - Secondary hyperparathyroidism of renal origin Status: Acute Plan: Patient with secondary hyperparathyroidism with significantly elevated phosphate and low calcium. Intact PTH 364.5 1,25 OH Vit D pending - Dietary phosphate restriction to 900 mg/day -Consider PhosLo -Management per Nephrology (5) COPD (chronic obstructive pulmonary disease) ICD Codes: J44.9 - Chronic obstructive pulmonary disease, unspecified Status: Chronic Plan: History of COPD with recent upper respiratory symptoms and acute exacerbation, recently diagnosed with pneumonia while on cruise ship and was started on azithromycin. - IV Solumedrol 60 mg q12hrs started 04/21 - DuoNebs q6hrs scheduled - Levaquin empirically, renally dosed, started 04/22 - O2 supplementation with target O2 90% (6) Hyperkalemia ICD Codes: E87.5 - Hyperkalemia; N18.9 - Chronic kidney disease, unspecified Status: Resolved Plan: Hyperkalemia up to 6.0 with acute renal failure. Resolved with hemodialysis. - Continue management per nephrology (7) Hyponatremia ICD Codes: E87.1 - Hypo-osmolality and hyponatremia Status: Resolved Plan: Hyponatremia with acute renal failure, asymptomatic - Free water restriction until sodium improved - Hypertonic saline only if symptomatic or severe - Monitor electrolytes - Hemodialysis per nephrology (8) DM2 (diabetes mellitus, type 2) ICD Codes: E11.9 - Type 2 diabetes mellitus without complications Status: Chronic Plan: History of diabetes type II - Sliding scale insulin with glucose goal of 140-180 (9) HTN (hypertension) ICD Codes: I10 - HTN (hypertension) Status: Chronic Plan: Impression: Mild hypertension during hospitalization with SBP 140s-160 - Continue carvedilol 3.125 bid -Will plan for dosage increase if persistent (10) Hypothyroidism ICD Codes: E03.9 - Hypothyroidism, unspecified Status: Chronic Plan: TSH normal - Levothyroxine 50 mcg daily (11) DVT Prophylaxis Status: Acute Plan: Heparin drip discontinued due to anemia/ suspected active bleeding (12) Nutrition, metabolism, and development symptoms ICD Codes: R63.8 - Other symptoms and signs concerning food and fluid intake Status: Acute Plan: Regular diet 1L free water restriction Phosphate restriction 900 mg/day for hyperphosphatemia Hyponatremia, hyperkalemia Receiving dialysis per nephrology Acute renal failure with CKD, monitor renal function Protonix IV 40 mg daily (Eric Stevenson MD, R3) Problem Qualifiers (1) Anemia: Qualified Codes: D64.9 - Anemia, unspecified (2) Acute on chronic kidney failure: Qualified Codes: N17.9 - Acute kidney failure, unspecified; N18.9 - Chronic kidney disease, unspecified (3) DM2 (diabetes mellitus, type 2): (4) HTN (hypertension): Qualified Codes: I10 - Essential (primary) hypertension (5) Hypothyroidism: Qualified Codes: E03.9 - Hypothyroidism, unspecified Eric Stevenson MD, R3 Apr 26, 2017 08:33 Cris Santana MD Apr 28, 2017 12:00
[2017-04-26] MEDS: DOCUSATE SODIUM 50 MG/SENNA 8.6 MG TAB PO SCH ×2 (09:00→20:53)
[2017-04-26] MEDS: methylPREDNISolone SOD SUCC 125 MG/2 ML VIAL IV PUSH SCH ×2 (09:06→20:51)
[2017-04-26] MEDS: ASPIRIN 81 MG CHEW TAB CHEW SCH (09:06)
[2017-04-26] MEDS: PANTOPRAZOLE SODIUM 40 MG VIAL IV PUSH SCH (09:06)
[2017-04-26] MEDS: CARVEDILOL 3.125 MG TAB PO SCH ×2 (09:06→20:53)
[2017-04-26] MEDS: CYANOCOBALAMIN 1,000 MCG TAB PO SCH (09:06)
[2017-04-26] MEDS: CALCITRIOL 0.25 MCG CAP PO SCH (09:06)
[2017-04-26] MEDS: CALCIUM ACETATE 667 MG CAP PO SCH ×3 (09:06→17:32)
[2017-04-26] MEDS: SODIUM CHLORIDE 0.9% FLUSH 10 ML FLUSH IV FLUSH SCH ×2 (09:07→09:08)
--- NOTE | 2017-04-26 10:31 | HHI.NPPN ---
Subjective Renal Failure: Chronic, Acute, Stage IV Interval History She is awake and alert. More anemic today with ecchymosis that developed on right lower quadrant of abdomen. To be transfused and sent for CT abd/pelvis. (Cris Telles) Review of Systems General Constitutional: Fatigue (Cris Telles) Respiratory Lungs: SOB (Cris Telles) Cardiovascular Cardiac: HAIR (Cris Telles) Objective Data Data 04/26/17 04/27/17 19:00 07:00 Intake Total 10 ml Balance 10 ml Blood Product IV Normal Saline Flush 10 ml Vital Signs Date Time Temp Pulse Resp B/P (MAP) Pulse Ox O2 Delivery O2 Flow Rate FiO2 04/26/17 09:29 97.9 85 21 180/80 97 04/26/17 06:00 75 04/26/17 04:00 90 04/26/17 04:00 98.8 90 30 135/60 (85) 95 04/26/17 02:00 72 04/26/17 00:00 98.9 69 30 195/78 (117) 96 04/26/17 00:00 69 04/25/17 22:00 79 04/25/17 21:57 98 Nasal Cannula 2.00 04/25/17 20:00 84 04/25/17 20:00 97.5 84 20 172/76 (108) 98 04/25/17 19:00 97 Nasal Cannula 2.00 04/25/17 19:00 79 172/76 (108) 96 04/25/17 18:31 84 147/67 (93) 97 04/25/17 18:01 90 169/76 (107) 97 04/25/17 18:00 89 04/25/17 18:00 89 96 04/25/17 17:30 70 148/67 (94) 97 04/25/17 17:00 68 147/69 (95) 97 04/25/17 16:30 75 148/65 (92) 97 04/25/17 16:00 72 04/25/17 16:00 98.2 72 16 157/73 (101) 97 04/25/17 15:30 75 161/73 (102) 97 04/25/17 15:00 77 174/73 (106) 97 04/25/17 14:31 77 147/67 (93) 97 04/25/17 14:00 77 04/25/17 14:00 77 180/82 (114) 98 04/25/17 13:01 74 173/76 (108) 99 04/25/17 13:00 73 99 04/25/17 12:31 82 149/67 (94) 97 04/25/17 12:01 97.3 75 16 163/71 (101) 98 04/25/17 12:00 78 04/25/17 11:31 77 157/67 (97) 96 04/25/17 11:00 85 177/74 (108) 96 04/25/17 10:30 73 163/79 (107) 99 (Cris Telles) -: 04/26/17 0333 04/26/17 0333 Imaging Last 72 hours Impressions Lower Extremity Ultrasound 04/24/17 0000 Signed Impressions: Service Date/Time: Monday, April 24, 2017 17:38 - CONCLUSION: 1. Venous mapping as above Bi Billings MD Lower Extremity Ultrasound 04/24/17 0000 Signed Impressions: Service Date/Time: Monday, April 24, 2017 17:25 - CONCLUSION: No DVT is identified within either lower extremity. Keegan Santos MD Tubes & Lines: Vas-Cath, Vazquez Drip Comment Heparin (Cris Telles) Physical Exam General Appearance: Well Developed, Well Nourished, No Acute Distress, Comfortable (Cris Telles) Eyes Eye Exam: Pupils Equal (Cris Telles) Throat Throat Exam: Oral Mucosa [place] & Moist (Cris Telles) Neck Neck Exam: Neck Supple (Cris Telles) Pulmonary Resp Exam: No Distress, Crackles, Rhonchi, Sputum, Decreased Bases, Diminished Breath Sounds (Cris Telles) Cardiology CV Exam: Regular, Normal Sinus Rhythm, Good Perfusion (Cris Telles) Gastrointestinal/Abdomen GI Exam: Soft, Non-Tender, Bowel Sounds Present GI Remarks RLQ ecchymosis (Cris Telles) Genitourinary Exam: Clear Urine (Cris Telles) Musculoskeletal MS Exam: Joints Intact, Normal Tone, Good Strength (Cris Telles) Integumentary Skin Exam: Clear, Warm, Dry, Intact (Cris Telles) Extremeties Extremities Exam: Pedal Pulses Palpable, Trace Edema (Cris Telles) Neurologic Neuro Exam: Alert, Awake, Oriented, Speech Clear, Moving All Extremities (Cris Telles) Psychiatric Psych Exam: Appropriate Responses (Cris Telles) Assessment/Plan Discussed Condition With: Patient Assessment Summary: LEEANN/Acute Renal Failure, [place] Hyperparathyroid, Proteinuria, Hypertension, Diabetes Mellitus, CKD Stage IV Electrolyte Assessment: Hypocalcemia Problem List: (1) Acute on chronic kidney failure ICD Codes: N17.9 - Acute kidney failure, unspecified; N18.9 - Chronic kidney disease, unspecified Status: Acute Plan: She has advanced renal disease, Creatinine 2.8 at baseline, CKD 4 Suspected underlying diabetic nephropathy, with 7.5 grams proteinuria All serologies normal; SPEP and urine immunofixation also normal LEEANN likely due to NSTEMI and decreased renal perfusion She required HD on 04/22 and 04/24 She is non oliguric, vazquez has been removed repeat labs in AM, it remains to be seen if she will require more dialysis Off IVF, tolerating oral fluids Repeat renal panel in AM Leave temporary dialysis catheter in place for now. (2) DM2 (diabetes mellitus, type 2) ICD Codes: E11.9 - Type 2 diabetes mellitus without complications Status: Chronic Plan: Insulin as needed to maintain glucose of 140-180 mg/dL while hospitalized (3) NSTEMI (non-ST elevated myocardial infarction) ICD Codes: I21.4 - Non-ST elevation (NSTEMI) myocardial infarction Status: Acute Plan: Cardiology is following Continues on heparin gtt; also on statin, BB 2D echo: LVH, EF 45-50% s/p cardiac catheterization with multivessel disease Plan for CABG x 3 on Monday (4) Metabolic bone disease ICD Codes: E88.9 - Metabolic disorder, unspecified; M90.80 - Osteopathy in diseases classified elsewhere, unspecified site Plan: Calcium acetate has been started Start calcitriol for secondary hyperparathyroidism (5) Hyperkalemia ICD Codes: E87.5 - Hyperkalemia; N18.9 - Chronic kidney disease, unspecified Status: Resolved Plan: Due to reduction in GFR and metabolic acidosis Improved with dialysis, monitor for recurrence (6) Metabolic acidosis ICD Codes: E87.2 - Acidosis Status: Acute Plan: Corrected, stop Bicarb gtt Follow metabolic profile (7) COPD with acute exacerbation ICD Codes: J44.1 - Chronic obstructive pulmonary disease with (acute) exacerbation Plan: On nebulizers, oxygen She is also on Levaquin and solumedrol (8) Anemia ICD Codes: D64.9 - Anemia, unspecified Status: Acute Plan: 2 units ordered for today CT abd/pelvis to rule out retroperitoneal bleed (rCis Telles) Plan patient was seen and examined. Non oliguric. Acute blood loss anemia due to development of groin, right abdominal wall hematoma. Blood transfusion is ordered. Monitor urine output and renal function. It is still possible that she will need continued dialysis support. Start diuretics. (Fantasma Corral MD) Problem Qualifiers (1) Acute on chronic kidney failure: Qualified Codes: N17.9 - Acute kidney failure, unspecified; N18.9 - Chronic kidney disease, unspecified (2) DM2 (diabetes mellitus, type 2): (3) Anemia: Qualified Codes: D64.9 - Anemia, unspecified Cris Telles Apr 26, 2017 10:31 Fantasma Corral MD Apr 26, 2017 20:43
[2017-04-26] MEDS: MORPHINE SULFATE 2 MG/ML INJ IV PUSH PRN ×2 (11:53→20:54)
--- NOTE | 2017-04-26 11:54 | RADRPT ---
EXAM DATE/TIME: 04/26/2017 11:16 [facility] COMPARISON: CT ABDOMEN & PELVIS W CONTRAST, April 19, 2015, 13:40. INDICATIONS : New onset hematoma 2 days status post cardiac catheterization. ORAL CONTRAST: No oral contrast ingested. RADIATION DOSE: 12.28 CTDIvol (mGy) MEDICAL HISTORY : Renal failure, acute. Cardiovascular disease Chronic obstructive pulmonary disease. SURGICAL HISTORY : None. ENCOUNTER: Initial ACUITY: 1 day PAIN SCALE: 5/10 LOCATION: Right abdomen TECHNIQUE: Volumetric scanning of the abdomen and pelvis was performed. Using automated exposure control and ad justment of the mA and/or kV according to patient size, radiation dose was kept as low as reasonably achievable to obtain optimal diagnostic quality images. DICOM format image data is available electro nically for review and comparison. FINDINGS: LOWER LUNGS: There is atelectasis in the right lower lobe. Small left pleural effusion is present. LIVER: Homogeneous density without lesion. There is no dilation of the biliary tree. There is layering hig h density material within the gallbladder most likely representing sludge or vicarious excretion of c ontrast material. SPLEEN: Normal size without lesion. PANCREAS: Within normal limits. KIDNEYS: Normal in size and shape. There is no hydronephrosis. A 14 mm cyst is present in the left mid kidney . ADRENAL GLANDS: Within normal limits. VASCULAR: There is severe atherosclerotic disease. No aneurysm is present. BOWEL/MESENTERY: The stomach, small bowel, and colon demonstrate no acute abnormality. There is no free intraperitone al air or fluid. There is sigmoid diverticulosis. ABDOMINAL WALL: There is bilateral flank subcutaneous edema. RETROPERITONEUM: There is no lymphadenopathy. BLADDER: No wall thickening or mass. High density material within the urinary bladder is likely related to exc reted contrast material within the urine. There is a loculate air in the bladder lumen. REPRODUCTIVE: Within normal limits. INGUINAL: There is no lymphadenopathy. There is a hyperdense hematoma in the right inguinal region and along th e right lower quadrant abdominal wall measuring approximately 8.3 x 8.6 x 8.8 cm. The inflammatory ch anges extend inferiorly into the mons pubis region. MUSCULOSKELETAL: There are degenerative changes of the lumbar spine. Old ununited right posterior rib fractures are id entified at the eighth and ninth ribs. CONCLUSION: 1. There is a right inguinal and right lower quadrant abdominal wall hematoma measuring up to 8.8 cm. There is surrounding subcutaneous inflammatory changes which extend into the mons pubis region. 2. There is bilateral flank edema. 3. Nonacute findings include small left pleural effusion, severe atherosclerotic disease, and sigmoid diverticulosis. Keegan Santos MD on April 26, 2017 at 11:44 Board Certified Radiologist. This report was verified electronically.
--- NOTE | 2017-04-26 13:13 | PD.VS.CON ---
History of Present Illness Chief Complaint: R groin hematoma Consult Requested by: Dr. Cole History of Present Illness 61 yo female with CAD s/p LHC 2 days ago. Has R groin ecchymoses and tenderness. Concern for hematoma and possible pseudoaneurysm. Had [place] CT today and showed hematoma. New onset HD but not clear if permanent as prior stage 2- 3 CRI so no IV contast given. Hct was 23 yesterday to 21 today. Pt c/o R groin pain but no leg pain. Past/Family/Social History Past Medical History HTN DM XOL CAD gastric ulcers diverticulosis colitis Past Surgical History toe amp Social History tobacco Family History NC Home Medications Active Scripts Azithromycin (Zithromax Z-Caleb) 250 Mg Dspk, 250 MG PO DIRECTED for Infection , #1 DSPK 0 Refills 500 MG (2 tabs) day 1, then 1 tab days 2-5. Prov:Stefanie Marshall MD, R3 04/18/17 Benzonatate (Tessalon Perles) 100 Mg Cap, 200 MG PO TID Y for COUGH, #30 CAP 0 Refills Prov:Stefanie Marshall MD, R3 04/18/17 Codeine Phosphate/Guaifenesin (Guaiatussin AC Liquid) 10 Mg-100 Mg/5 Ml (5 Ml) Liquid, 10 ML PO HS, #300 Prov:Stefaine Marshall MD, R3 04/18/17 Ciprofloxacin (Ciprofloxacin) 500 Mg Tab, 500 MG PO BID for Infection, #8 TAB 0 Refills Prov:Red Mott MD, R3 03/15/17 Amlodipine (Amlodipine) 5 Mg Tab, 5 MG PO DAILY for Blood Pressure Management, # 30 TAB 0 Refills Prov:Red Mott MD, R3 03/10/17 Glipizide (Glipizide) 5 Mg Tab, 5 MG PO DAILY for Blood Sugar Management, #30 TAB 0 Refills Take 30 minutes before a meal Prov:Red Mott MD, R3 03/02/17 Atorvastatin (Lipitor) 20 Mg Tab, 20 MG PO DAILY for Cholesterol Management, # 90 TAB 4 Refills Prov:Red Mott MD, R3 11/23/16 Levothyroxine (Synthroid) 50 Mcg Tab, 50 MCG PO DAILY for Thyroid, #90 TAB 4 Refills Prov:Red Mott MD, R3 11/23/16 Reported Medications Cyanocobalamin (Vitamin B-12) 500 Mcg Tab, 500 MCG PO DAILY for Nutritional Supplement, #1 BOTTLE 0 Refills 04/20/16 Aspirin (Aspirin) 81 Mg Tabdr, 81 MG PO DAILY, TAB 04/20/16 Ferrous Sulfate (Ferrous Sulfate) 325 Mg Tab, 325 MG PO BID for Nutritional Supplement, TAB 0 Refills 04/19/16 Magnesium Oxide (Magnesium Oxide) 400 Mg Tab, 800 MG PO BID for Nutritional Supplement, TAB 0 Refills 04/19/16 Coded Allergies: Sulfa (Sulfonamide Antibiotics) (Unverified Adverse Reaction, Mild, RASH, 04/21/17) sulfamethoxazole (Unverified Adverse Reaction, Mild, Rash, 04/21/17) trimethoprim (Unverified Adverse Reaction, Mild, Rash, 04/21/17) Review of Systems Respiratory: COMPLAINS OF: Shortness of breath Cardiovascular: COMPLAINS OF: Dyspnea on Exertion Gastrointestinal: COMPLAINS OF: Abdominal pain Physical Exam Vitals/I&O Date Time Temp Pulse Resp B/P (MAP) Pulse Ox O2 Delivery O2 Flow Rate FiO2 04/26/17 11:30 98.0 74 24 166/79 98 04/26/17 10:30 82 24 152/68 (96) 98 04/26/17 10:00 79 19 155/66 (95) 97 04/26/17 09:31 85 28 154/67 (96) 97 04/26/17 09:29 97.9 85 21 180/80 97 04/26/17 09:00 96 21 180/80 (113) 95 04/26/17 08:30 81 26 149/67 (94) 95 04/26/17 08:00 97.9 77 27 135/61 (85) 91 04/26/17 07:30 78 22 149/66 (93) 97 04/26/17 07:00 98 Nasal Cannula 2.00 04/26/17 07:00 75 16 163/69 (100) 98 04/26/17 06:00 75 04/26/17 04:00 90 04/26/17 04:00 98.8 90 30 135/60 (85) 95 04/26/17 02:00 72 04/26/17 00:00 98.9 69 30 195/78 (117) 96 04/26/17 00:00 69 04/25/17 22:00 79 04/25/17 21:57 98 Nasal Cannula 2.00 04/25/17 20:00 84 04/25/17 20:00 97.5 84 20 172/76 (108) 98 04/25/17 19:00 97 Nasal Cannula 2.00 04/25/17 19:00 79 172/76 (108) 96 04/25/17 18:31 84 147/67 (93) 97 04/25/17 18:01 90 169/76 (107) 97 04/25/17 18:00 89 04/25/17 18:00 89 96 04/25/17 17:30 70 148/67 (94) 97 04/25/17 17:00 68 147/69 (95) 97 04/25/17 16:30 75 148/65 (92) 97 04/25/17 16:00 72 04/25/17 16:00 98.2 72 16 157/73 (101) 97 04/25/17 15:30 75 161/73 (102) 97 04/25/17 15:00 77 174/73 (106) 97 04/25/17 14:31 77 147/67 (93) 97 04/25/17 14:00 77 04/25/17 14:00 77 180/82 (114) 98 04/26/17 04/26/17 04/26/17 07:00 15:00 23:00 Intake Total 730 ml 562 ml Balance 730 ml 562 ml Neuro: alert, conversant, VICK HEENT: NC/AT Neck: no JVD Lungs: nonlabored breathing Abdomen: obese, TTP RLQ with ecchymoses in dependent pannus Vascular: Palpable R DP Laboratory Tests Test 04/25/17 19:15 04/25/17 21:04 04/26/17 03:33 Urine Random Creatinine 46 Urine Microalbumin/Creatinine Ratio 2652 White Blood Count 13.2 12.2 Red Blood Count 2.27 2.12 Hemoglobin 7.6 7.0 Hematocrit 22.4 20.8 Mean Corpuscular Volume 98.4 98.1 Mean Corpuscular Hemoglobin 33.5 32.8 Mean Corpuscular Hemoglobin Concent 34.0 33.4 Red Cell Distribution Width 12.8 12.6 Platelet Count 174 169 Mean Platelet Volume 9.3 9.1 Neutrophils (%) (Auto) 92.6 92.1 Lymphocytes (%) (Auto) 3.6 4.4 Monocytes (%) (Auto) 3.7 3.4 Eosinophils (%) (Auto) 0.0 0.0 Basophils (%) (Auto) 0.1 0.1 Neutrophils # (Auto) 12.2 11.2 Lymphocytes # (Auto) 0.5 0.5 Monocytes # (Auto) 0.5 0.4 Eosinophils # (Auto) 0.0 0.0 Basophils # (Auto) 0.0 0.0 CBC Comment DIFF FINAL DIFF FINAL Differential Comment Activated Partial Thromboplast Time 66.2 Blood Urea Nitrogen 95 Creatinine 4.34 Random Glucose 253 Total Protein 4.6 Calcium Level 7.2 Sodium Level 134 Potassium Level 4.3 Chloride Level 98 Carbon Dioxide Level 26.2 Anion Gap 10 Estimat Glomerular Filtration Rate 10 Protein Corrected Calcium 8.6 Date/Time Source Procedure Growth Status 04/21/17 04:40 Nasal Aspirate Influenza Types A,B Antigen (CHUCK) - Final NEGATIVE FOR FLU A AND B ANTIGEN.... Complete 04/21/17 08:20 Urine Catheterized Urine Urine Culture - Final NO GROWTH IN 48 HOURS. Complete Last 48 hours Impressions Abdomen/Pelvis CT 04/26/17 0917 Signed Impressions: Service Date/Time: Wednesday, April 26, 2017 11:16 - CONCLUSION: 1. There is a right inguinal and right lower quadrant abdominal wall hematoma measuring up to 8.8 cm. There is surrounding subcutaneous inflammatory changes which extend into the mons pubis region. 2. There is bilateral flank edema. 3. Nonacute findings include small left pleural effusion, severe atherosclerotic disease, and sigmoid diverticulosis. Keegan Santos MD Assessment and Plan Plan Pt with R groin/flank hematoma that likely is dependent from periprocedural around [facility]; Hct stable and no malperfusion of R LE and no skin threat at present 1. Ideally would get CTA but given new onset renal failure and potential for return of renal function, I think a R groin duplex is reasonable looking for active extravasation 2. Even if pseudoaneurysm, the vast majority heal without intervention and clinically at present no need for intervention 3. Follow serial Hcts, R LE pulse checks and skin checks overlying hematoma 4. Will follow closely Dominick Manzanares MD FACS RPVI costume draper [facility] - Heart and Vascular Surgery at [facility] [phone] Dominick Manzanares MD Apr 26, 2017 13:13
--- NOTE | 2017-04-26 13:29 | PD.CAR.PN ---
CVT Progress Note Subjective/Hospital Course: 61/ female patient who presented to [facility] emergency department on 04/21. She had recently been on a cruise to the [facility] a week prior to coming in. She became sick during the cruise, developed cough, generalized malaise, some intermittent nausea and vomiting. She was seen by her primary care physician, was treated with a Z-Caleb and Tesminnaon Gabriella. She also was found to have acute kidney injury with chronic kidney disease stage IV. She has had a history of some kidney problems she says in the past but she was to follow up with her primary and be re-evaluated in June. There was no talk of any dialysis at that time. Upon her arrival she was found to have an elevated troponin to 7.85, was started on a heparin drip and her creatinine was 5.98, and her baseline is about 2.8, probably secondary to diabetic neuropathy. They did start hemodialysis on 04/22 via a right IJ Vas-Cath. She underwent cardiac catheterization today by Dr. Toledo which showed a 70% lesion in the proximal LAD and 80% in the proximal portion of the circumflex. The first OM had an 80% lesion. The mid circ was a subtotally occluded lesion and distal to this was a 90% lesion before supplying another posterior lateral branch. The right coronary artery was nondominant with an 80% lesion. Her ejection fraction was 45 to 50% by echocardiogram, some mild LVH, also some mild mitral valve replacement. We were consulted to evaluate for coronary artery bypass grafting. PMH: COPD, 2. Diabetes mellitus type , Hypertension, Hyperlipidemia, Peripheral neuropathy, Chronic kidney disease, stage IV, currently now on dialysis, History of gastric ulcers, Nonspecific colitis, Diverticulosis, Hypothyroidism, Recent admission also with COPD exacerbation 04/25 await PFT results still has cough, but improved, dialyzed yesterday creatinine slightly improved, unable to complete carotid US / right IJ vas cath US vein mapping noted, will discuss with dr Gonzales agree with transfer to [facility], consult PT/ OOB 04/26 PFT FEV1 0.83/ 34% predicted large ecchymotic area right groin and flank HGB 7.0, for 2 units of PRBC today Heparin off for ct abd/ pelvis large right inguinal and right lower quadrant hematoma Dr Gonzales to speak with Dr toledo, may need to postpone surgery repeat PFT after pt able to sit up and retry also concern is for heparin with bypass machine during surgery and bleeding Objective: GENERAL: SKIN: Warm and dry. color slightly pale , large ecchymotic area left groin > flank area HEAD: Normocephalic. EYES: No scleral icterus. No injection or drainage. NECK: Supple, trachea midline. No JVD or lymphadenopathy. CARDIOVASCULAR: Regular rate and rhythm without murmurs, gallops, or rubs. RESPIRATORY: Breath sounds equal bilaterally. No accessory muscle use. diminished in bases, few wheezes GASTROINTESTINAL: Abdomen soft, non-tender, nondistended. MUSCULOSKELETAL: No cyanosis, or edema. BACK: Nontender without obvious deformity. No CVA tenderness. Vital Signs Date Time Temp Pulse Resp B/P (MAP) Pulse Ox O2 Delivery O2 Flow Rate FiO2 04/26/17 11:30 98.0 74 24 166/79 98 04/26/17 10:30 82 24 152/68 (96) 98 04/26/17 10:00 79 19 155/66 (95) 97 04/26/17 09:31 85 28 154/67 (96) 97 04/26/17 09:29 97.9 85 21 180/80 97 04/26/17 09:00 96 21 180/80 (113) 95 04/26/17 08:30 81 26 149/67 (94) 95 04/26/17 08:00 97.9 77 27 135/61 (85) 91 04/26/17 07:30 78 22 149/66 (93) 97 04/26/17 07:00 98 Nasal Cannula 2.00 04/26/17 07:00 75 16 163/69 (100) 98 04/26/17 06:00 75 04/26/17 04:00 90 04/26/17 04:00 98.8 90 30 135/60 (85) 95 04/26/17 02:00 72 04/26/17 00:00 98.9 69 30 195/78 (117) 96 04/26/17 00:00 69 04/25/17 22:00 79 04/25/17 21:57 98 Nasal Cannula 2.00 04/25/17 20:00 84 04/25/17 20:00 97.5 84 20 172/76 (108) 98 04/25/17 19:00 97 Nasal Cannula 2.00 04/25/17 19:00 79 172/76 (108) 96 04/25/17 18:31 84 147/67 (93) 97 04/25/17 18:01 90 169/76 (107) 97 04/25/17 18:00 89 04/25/17 18:00 89 96 04/25/17 17:30 70 148/67 (94) 97 04/25/17 17:00 68 147/69 (95) 97 04/25/17 16:30 75 148/65 (92) 97 04/25/17 16:00 72 04/25/17 16:00 98.2 72 16 157/73 (101) 97 04/25/17 15:30 75 161/73 (102) 97 04/25/17 15:00 77 174/73 (106) 97 04/25/17 14:31 77 147/67 (93) 97 04/25/17 14:00 77 04/25/17 14:00 77 180/82 (114) 98 Labs: Laboratory Tests Test 04/26/17 03:33 White Blood Count 12.2 TH/MM3 (4.0-11.0) Red Blood Count 2.12 MIL/MM3 (4.00-5.30) Hemoglobin 7.0 GM/DL (11.6-15.3) Hematocrit 20.8 % (35.0-46.0) Mean Corpuscular Volume 98.1 FL (80.0-100.0) Mean Corpuscular Hemoglobin 32.8 PG (27.0-34.0) Mean Corpuscular Hemoglobin Concent 33.4 % (32.0-36.0) Red Cell Distribution Width 12.6 % (11.6-17.2) Platelet Count 169 TH/MM3 (150-450) Mean Platelet Volume 9.1 FL (7.0-11.0) Neutrophils (%) (Auto) 92.1 % (16.0-70.0) Lymphocytes (%) (Auto) 4.4 % (9.0-44.0) Monocytes (%) (Auto) 3.4 % (0.0-8.0) Eosinophils (%) (Auto) 0.0 % (0.0-4.0) Basophils (%) (Auto) 0.1 % (0.0-2.0) Neutrophils # (Auto) 11.2 TH/MM3 (1.8-7.7) Lymphocytes # (Auto) 0.5 TH/MM3 (1.0-4.8) Monocytes # (Auto) 0.4 TH/MM3 (0-0.9) Eosinophils # (Auto) 0.0 TH/MM3 (0-0.4) Basophils # (Auto) 0.0 TH/MM3 (0-0.2) CBC Comment DIFF FINAL Differential Comment Activated Partial Thromboplast Time 66.2 SEC (24.3-30.1) Blood Urea Nitrogen 95 MG/DL (7-18) Creatinine 4.34 MG/DL (0.50-1.00) Random Glucose 253 MG/DL (74-106) Total Protein 4.6 GM/DL (6.4-8.2) Calcium Level 7.2 MG/DL (8.5-10.1) Sodium Level 134 MEQ/L (136-145) Potassium Level 4.3 MEQ/L (3.5-5.1) Chloride Level 98 MEQ/L (98-107) Carbon Dioxide Level 26.2 MEQ/L (21.0-32.0) Anion Gap 10 MEQ/L (5-15) Estimat Glomerular Filtration Rate 10 ML/MIN (>89) Protein Corrected Calcium 8.6 MG/DL (8.5-10.1) Result Diagram: 04/26/1733204/26/17332 (1) NSTEMI (non-ST elevated myocardial infarction) Plan: ASA, statin , BB (2) Acute on chronic kidney failure Plan: on dialysis (3) HTN (hypertension) (4) HLD (hyperlipidemia) (5) Anemia Plan: for [address] abd / pelvis right inguinal and right lower quadrant abdominal wall hematoma measuring up to 8.8 cm. There is surrounding subcutaneous inflammatory changes which extend into the mons pubis region. bilateral flank edema. Problem Qualifiers (1) Acute on chronic kidney failure: Qualified Codes: N17.9 - Acute kidney failure, unspecified; N18.9 - Chronic kidney disease, unspecified (2) HTN (hypertension): Qualified Codes: I10 - Essential (primary) hypertension (3) HLD (hyperlipidemia): Qualified Codes: E78.5 - Hyperlipidemia, unspecified (4) Anemia: Qualified Codes: D64.9 - Anemia, unspecified Terrie Medina Apr 26, 2017 13:29
[2017-04-26 13:52] LABS: MYELOPEROXIDASE LESS THAN 1.0 AI (<1.0); PROTEINASE-3 LESS THAN 1.0 AI (<1.0)
--- NOTE | 2017-04-26 14:50 | RADRPT ---
EXAM DATE/TIME: 04/26/2017 14:24 [facility] COMPARISON: No previous studies available for comparison. INDICATIONS : Right lower quadrant hematoma. Status post right cardiac cath, 04/24/17. MEDICAL HISTORY : Hypothyroidism. Hypercholesterolemia. Gastroesophageal reflux disease. Hyperlipidemia. Hypertension. CHF. CVA. Diabetes. SURGICAL HISTORY : Appendectomy. section. D&C. Cardiac cath, 04/24/17. ENCOUNTER: Initial ACUITY: 3 days PAIN SCORE: 7/10 LOCATION: Right lower quadrant. AREA EVALUATED: Right lower quadrant. FINDINGS: 12 cm hematoma in the right inguinal region. No evidence of pseudoaneurysm. Common femoral vessels ar e intact and unremarkable CONCLUSION: Large groin hematoma. No evidence of pseudoaneurysm Keegan Cedeon MD on April 26, 2017 at 14:47 Board Certified Radiologist. This report was verified electronically.
--- NOTE | 2017-04-26 17:01 | PD.CARD.PN ---
Subjective Subjective Remarks Patient was seen multiple times through out the day Right groin hematoma and soreness No chest pain/SOB Objective Medications Current Medications Medications (Trade) Dose Ordered Sig/Des Route Start Time Stop Time Status Last Admin (Heparin Inj) 5,000 units UNSCH PRN IV PUSH 04/21/17 11:45 (Heparin Inj) 2,500 units UNSCH PRN IV PUSH 04/21/17 11:45 Heparin Sodium/ Dextrose 250 ml @ 9 mls/hr TITRATE PRN IV 04/21/17 05:45 04/25/17 23:37 (NS Flush) 2 ml UNSCH PRN IV FLUSH 04/21/17 06:45 (NS Flush) 2 ml BID IV FLUSH 04/21/17 09:00 04/26/17 09:07 (Protonix Inj) 40 mg DAILY IV PUSH 04/21/17 09:00 04/26/17 09:06 (Duoneb Neb) 1 ampule Q4HR NEB PRN INH 04/21/17 06:45 Miscellaneous Information 1 Q361D XX 04/21/17 06:45 (Chlorhexidine 2% Cloth) 3 pack Taper DAILY@04 TOP 04/22/17 04:00 04/18/18 03:59 04/26/17 03:31 (Chlorhexidine 2% Cloth) 3 pack UNSCH PRN TOP 04/21/17 06:45 (Malaika-Colace) 1 tab BID PO 04/21/17 09:00 04/25/17 21:06 (Milk Of Magnesia Liq) 30 ml Q12H PRN PO 04/21/17 06:45 (Senokot) 17.2 mg Q12H PRN PO 04/21/17 06:45 (Dulcolax Supp) 10 mg DAILY PRN RECTAL 04/21/17 06:45 (Lactulose Liq) 30 ml DAILY PRN PO 04/21/17 06:45 (Aspirin Chew) 81 mg DAILY CHEW 04/22/17 09:00 04/26/17 09:06 (Coreg) 3.125 mg Q12HR PO 04/21/17 09:00 04/26/17 09:06 (Lipitor) 10 mg HS PO 04/21/17 21:00 04/25/17 21:06 (Vitamin B12) 500 mcg DAILY PO 04/21/17 09:00 04/26/17 09:06 (Synthroid) 50 mcg DAILY@0600 PO 04/21/17 07:00 04/26/17 05:58 (NovoLOG SUPPLEMENTAL SCALE) 1 Q4HR SQ 04/21/17 08:00 04/26/17 14:48 (SoluMEDROL INJ) 60 mg Q12HR IV PUSH 04/21/17 11:30 04/26/17 09:06 Levofloxacin/ Dextrose 100 ml @ 100 mls/hr Q48H IV 04/21/17 12:00 04/25/17 12:22 (Restoril) 15 mg HS PRN PO 04/21/17 20:45 04/25/17 21:06 Sodium Chloride 1,000 ml @ 0 mls/hr Q0M PRN OTHER 04/22/17 14:04 (Heparin Inj) 8,000 units UNSCH PRN IV FLUSH 04/22/17 14:15 04/24/17 12:11 Sodium Chloride 1,000 ml @ 200 mls/hr Q5H PRN IV 04/22/17 14:04 Sodium Chloride 1,000 ml @ 0 mls/hr Q0M PRN OTHER 04/22/17 14:04 (Mannitol Inj) 12.5 gm UNSCH PRN IV 04/22/17 14:15 Albumin Human 100 ml @ 60 mls/hr UNSCH PRN IV 04/22/17 14:15 (NS Flush) 5 ml UNSCH PRN IV FLUSH 04/22/17 14:15 (Heparin Inj) UNSCH PRN .XX 04/22/17 14:15 (Gentamicin (Dialysis) Inj) 20 mg UNSCH PRN OTHER 04/22/17 14:15 04/24/17 12:10 (Zofran Inj) 4 mg UNSCH PRN IV PUSH 04/22/17 14:15 (Tylenol) 650 mg UNSCH PRN PO 04/22/17 14:15 04/25/17 12:21 (Benadryl) 25 mg UNSCH PRN PO 04/22/17 14:15 (Nitrostat Sl) 0.4 mg UNSCH PRN SL 04/22/17 14:15 (Catapres) 0.1 mg UNSCH PRN PO 04/22/17 14:15 04/22/17 21:36 (Gelfoam 12 Mm/7 Mm Top) 1 foam UNSCH PRN TOP 04/22/17 14:15 (Apresoline Inj) 10 mg Q30M PRN IV PUSH 04/23/17 13:15 04/26/17 03:31 (Phoslo) 2,001 mg TID PO 04/23/17 18:00 04/26/17 14:48 (Rocaltrol) 0.25 mcg DAILY PO 04/24/17 09:15 04/26/17 09:06 (Atropine Inj) 0.5 mg UNSCH PRN IV PUSH 04/24/17 10:00 (NS Flush) 2 ml BID IV FLUSH 04/24/17 21:00 04/26/17 09:08 (NS Flush) 2 ml UNSCH PRN IV FLUSH 04/24/17 15:45 (Lopressor) 12.5 mg [employer] G[employer]GER PO 04/24/17 15:45 05/01/17 15:44 (Hibiclens 4% Top Soln) 1 applic DISTRICT GAUGER TOPICAL 04/24/17 15:45 05/01/17 15:44 (D50w (Vial) Inj) 50 ml UNSCH PRN IV PUSH 04/24/17 15:45 (Morphine Inj) 2 mg Q3H PRN IV PUSH 04/26/17 09:30 04/26/17 11:53 Vital Signs / I&O Vital Signs Date Time Temp Pulse Resp B/P (MAP) Pulse Ox O2 Delivery O2 Flow Rate FiO2 04/26/17 13:48 97.6 75 19 177/73 96 04/26/17 13:30 75 21 177/73 (107) 96 04/26/17 13:00 75 19 171/73 (105) 95 04/26/17 12:30 75 25 171/78 (109) 96 04/26/17 12:00 97.6 75 19 183/75 (111) 94 04/26/17 11:32 73 22 166/79 (108) 97 04/26/17 11:30 98.0 74 24 166/79 98 04/26/17 11:00 77 24 97 04/26/17 10:30 82 24 152/68 (96) 98 04/26/17 10:00 79 19 155/66 (95) 97 04/26/17 09:31 85 28 154/67 (96) 97 04/26/17 09:29 97.9 85 21 180/80 97 04/26/17 09:00 96 21 180/80 (113) 95 04/26/17 08:30 81 26 149/67 (94) 95 04/26/17 08:00 97.9 77 27 135/61 (85) 91 04/26/17 07:30 78 22 149/66 (93) 97 04/26/17 07:00 98 Nasal Cannula 2.00 04/26/17 07:00 75 16 163/69 (100) 98 04/26/17 06:00 75 04/26/17 04:00 90 04/26/17 04:00 98.8 90 30 135/60 (85) 95 04/26/17 02:00 72 04/26/17 00:00 98.9 69 30 195/78 (117) 96 04/26/17 00:00 69 04/25/17 22:00 79 04/25/17 21:57 98 Nasal Cannula 2.00 04/25/17 20:00 84 04/25/17 20:00 97.5 84 20 172/76 (108) 98 04/25/17 19:00 97 Nasal Cannula 2.00 04/25/17 19:00 79 172/76 (108) 96 04/25/17 18:31 84 147/67 (93) 97 04/25/17 18:01 90 169/76 (107) 97 04/25/17 18:00 89 04/25/17 18:00 89 96 04/25/17 17:30 70 148/67 (94) 97 04/25/17 17:00 68 147/69 (95) 97 I/O 04/25/17 04/25/17 04/25/17 04/26/17 04/26/17 04/26/17 07:00 15:00 23:00 07:00 15:00 23:00 Intake Total 1542 ml 312 ml 598.6 ml 730 ml 572 ml Output Total 200 ml 450 ml Balance 1342 ml 312 ml 148.6 ml 730 ml 572 ml Intake Oral 600 ml 420 ml 480 ml IV Total 942 ml 312 ml 178.6 ml 250 ml 137 ml Packed Cells 400 ml Blood Product IV Normal Saline Flush 35 ml Output Urine Total 200 ml 450 ml Stool Total 0 ml # Voids 1 # Bowel Movements 0 0 1 Physical Exam GENERAL: NAD, AAOx3 SKIN: Warm and dry. HEAD: Atraumatic. Normocephalic. EYES: Pupils equal and round. No scleral icterus. No injection or drainage. ENT: No nasal bleeding or discharge. Mucous membranes pink and moist. NECK: Trachea midline. No JVD. CARDIOVASCULAR: Regular rate and rhythm. RESPIRATORY: No accessory muscle use. Clear to auscultation. Breath sounds equal bilaterally. GASTROINTESTINAL: Abdomen soft, non-tender, nondistended. Hepatic and splenic margins not palpable. MUSCULOSKELETAL: Extremities without clubbing, cyanosis, or edema. No obvious deformities. Right femoral with ecchymosis and tender to touch. NEUROLOGICAL: Awake and alert. No obvious cranial nerve deficits. Motor grossly within normal limits. Five out of 5 muscle strength in the arms and legs. Normal speech. PSYCHIATRIC: Appropriate mood and affect; insight and judgment normal. Laboratory Laboratory Tests Test 04/25/17 19:15 04/25/17 21:04 04/26/17 03:33 Urine Random Creatinine 46 MG/DL Urine Microalbumin/Creatinine Ratio 2652 MG/G CRE White Blood Count 13.2 TH/MM3 12.2 TH/MM3 Red Blood Count 2.27 MIL/MM3 2.12 MIL/MM3 Hemoglobin 7.6 GM/DL 7.0 GM/DL Hematocrit 22.4 % 20.8 % Mean Corpuscular Volume 98.4 FL 98.1 FL Mean Corpuscular Hemoglobin 33.5 PG 32.8 PG Mean Corpuscular Hemoglobin Concent 34.0 % 33.4 % Red Cell Distribution Width 12.8 % 12.6 % Platelet Count 174 TH/MM3 169 TH/MM3 Mean Platelet Volume 9.3 FL 9.1 FL Neutrophils (%) (Auto) 92.6 % 92.1 % Lymphocytes (%) (Auto) 3.6 % 4.4 % Monocytes (%) (Auto) 3.7 % 3.4 % Eosinophils (%) (Auto) 0.0 % 0.0 % Basophils (%) (Auto) 0.1 % 0.1 % Neutrophils # (Auto) 12.2 TH/MM3 11.2 TH/MM3 Lymphocytes # (Auto) 0.5 TH/MM3 0.5 TH/MM3 Monocytes # (Auto) 0.5 TH/MM3 0.4 TH/MM3 Eosinophils # (Auto) 0.0 TH/MM3 0.0 TH/MM3 Basophils # (Auto) 0.0 TH/MM3 0.0 TH/MM3 CBC Comment DIFF FINAL DIFF FINAL Differential Comment Activated Partial Thromboplast Time 66.2 SEC Blood Urea Nitrogen 95 MG/DL Creatinine 4.34 MG/DL Random Glucose 253 MG/DL Total Protein 4.6 GM/DL Calcium Level 7.2 MG/DL Sodium Level 134 MEQ/L Potassium Level 4.3 MEQ/L Chloride Level 98 MEQ/L Carbon Dioxide Level 26.2 MEQ/L Anion Gap 10 MEQ/L Estimat Glomerular Filtration Rate 10 ML/MIN Protein Corrected Calcium 8.6 MG/DL Phosphorus Level 5.3 MG/DL Imaging Last 24 hours Impressions Abdomen/Pelvis CT 04/26/17 0917 Signed Impressions: Service Date/Time: Wednesday, April 26, 2017 11:16 - CONCLUSION: 1. There is a right inguinal and right lower quadrant abdominal wall hematoma measuring up to 8.8 cm. There is surrounding subcutaneous inflammatory changes which extend into the mons pubis region. 2. There is bilateral flank edema. 3. Nonacute findings include small left pleural effusion, severe atherosclerotic disease, and sigmoid diverticulosis. Keegan Santos MD Lower Extremity Ultrasound 04/26/17 0000 Signed Impressions: Service Date/Time: Wednesday, April 26, 2017 14:24 - CONCLUSION: Large groin hematoma. No evidence of pseudoaneurysm Keegan Cedeno MD Assessment and Plan Problem List: (1) NSTEMI (non-ST elevated myocardial infarction) ICD Codes: I21.4 - Non-ST elevation (NSTEMI) myocardial infarction Status: Acute (2) Acute on chronic kidney failure ICD Codes: N17.9 - Acute kidney failure, unspecified; N18.9 - Chronic kidney disease, unspecified Status: Acute (3) HTN (hypertension) ICD Codes: I10 - HTN (hypertension) Status: Chronic (4) HLD (hyperlipidemia) ICD Codes: E78.5 - HLD (hyperlipidemia) Status: Chronic (5) Anemia ICD Codes: D64.9 - Anemia, unspecified Status: Acute Assessment and Plan 1) NSTEMI/CAD Multivessel CAD ASA/BB/Statin Turned down for CABG Discussed with her planned PCI of LCX and LAD Most likely Monday and Monday depending on hospital course (plan for 2 separate procedures to decrease contrast use) 2) LEEANN on CKD HD started Still making urine Attempt to decrease nephrotoxin medications (contrast) if possible, not sure if chronic yet 3) Anemia Post-procedure Now with right groin hematoma No PSA or RPB Discussed with Dr. Manzanares, will continue to follow 1 unit PRBC today (did not receive one yesterday) Problem Qualifiers (1) Acute on chronic kidney failure: Qualified Codes: N17.9 - Acute kidney failure, unspecified; N18.9 - Chronic kidney disease, unspecified (2) HTN (hypertension): Qualified Codes: I10 - Essential (primary) hypertension (3) HLD (hyperlipidemia): Qualified Codes: E78.5 - Hyperlipidemia, unspecified (4) Anemia: Qualified Codes: D64.9 - Anemia, unspecified Hemanth Cole DO Apr 26, 2017 17:01
[2017-04-26] MEDS: ATORVASTATIN 10 MG TAB PO SCH (20:53)
[2017-04-26] MEDS: TEMAZEPAM 15 MG CAP PO PRN (20:53)
[2017-04-26 21:58] LABS: HEMATOCRIT 32.9 % (35.0-46.0); REVIEW FLAG FINAL
--- NOTE | 2017-04-26 22:48 | HHI.PR ---
Addendum to Inpatient Note Addendum Reason: Additional Documentation Additional Information Contacted due to concern by daughter of redness around patient eyes. On arrival , patient asleep and comfortable. Awakened to alert easily at sound of voice. Patient asymptomatic. Denies eye pain, vision changes. Exam: Alert, oriented x3. Eyes with mild erythema around the orbits, moderately edematous eyelids. No tenderness or discharge. A/P: Likely due to renal disease causing fluid accumulation at various sites, asymptomatic. Continue to monitor. Renal management per nephrology. No acute need for dialysis at this time. No further work-up warranted unless further symptoms develop. Los Edmondson MD R2 Apr 26, 2017 22:48
[2017-04-27] VITALS (18 sets, daily range): BP systolic 138–190; BP diastolic 63–85; PULSE 66–85; RESP 17–30; TEMP 96.9–98.8; O2SAT 93–96
[2017-04-27] MEDS: SODIUM CHLORIDE 0.9% FLUSH 10 ML FLUSH IV FLUSH SCH ×6 (00:34→20:59)
[2017-04-27] MEDS: INSULIN ASPART SUPPLEMENTAL SCALE SQ SCH ×6 (00:35→20:00)
[2017-04-27] MEDS: CHLORHEXIDINE GLUCONATE 2 % 1 PACK (2 CLOTHS) TOP SCH (00:35)
[2017-04-27] MEDS: hydrALAZINE HCL 20 MG/ML VIAL IV PUSH PRN ×3 (02:09→15:44)
[2017-04-27] MEDS: BUMETANIDE INJ 1 MG/4 ML VIAL IV PUSH SCH ×3 (02:09→18:39)
[2017-04-27] MEDS: LEVOTHYROXINE SODIUM 50 MCG TAB PO SCH (03:53)
[2017-04-27 05:57] LABS: AUTOMATED NEUTROPHIL # 15.8 TH/MM3 (1.8-7.7); BASOPHIL % 0.2 % (0.0-2.0); HEMATOCRIT 32.5 % (35.0-46.0); LYMPH % 2.9 % (9.0-44.0); LYMPHOCYTE # 0.5 TH/MM3 (1.0-4.8); MEAN CELL VOLUME 93.7 FL (80.0-100.0); MEAN CORPUSCULAR HGB CONC 34.1 % (32.0-36.0); MONO % 2.4 % (0.0-8.0); NEUT % 94.5 % (16.0-70.0); PLATELET COUNT 168 TH/MM3 (150-450); RED BLOOD COUNT 3.47 MIL/MM3 (4.00-5.30); RED CELL DISTRIBUTION WIDTH 14.8 % (11.6-17.2); WHITE BLOOD COUNT 16.7 TH/MM3 (4.0-11.0)
[2017-04-27 06:01] LABS: HEMO FLAGS AUTO DIFF
[2017-04-27 06:14] LABS: APTT (PATIENT) 22.7 SEC (24.3-30.1); PROTHROMBIN TIME - PATIENT 10.9 SEC (9.8-11.6)
[2017-04-27 06:31] LABS: ALKALINE PHOSPHATASE 73 U/L (45-117); ALT (GPT) 22 U/L (10-53); ANION GAP 10 MEQ/L (5-15); AST (GOT) 18 U/L (15-37); BICARBONATE 25.8 MEQ/L (21.0-32.0); BLOOD UREA NITROGEN 107 MG/DL (7-18); CHLORIDE 98 MEQ/L (98-107); GLOMERULAR FILTRATION RATE 10 ML/MIN (>89); POTASSIUM 4.3 MEQ/L (3.5-5.1); SODIUM (NA) 134 MEQ/L (136-145); TOTAL BILIRUBIN ADULT 0.5 MG/DL (0.2-1.0)
[2017-04-27 07:39] LABS: TOXIC GRANULATION 1+ (NORMAL)
[2017-04-27 07:40] LABS: PLATELET ESTIMATE SMEAR NORMAL (NORMAL); PLATELET MORPHOLOGY NORMAL (NORMAL); SCAN/DIFF AUTO DIFF CONFIRMED; TOXIC VACUOLATION PRESENT (NONE SEEN)
--- NOTE | 2017-04-27 08:11 | HHI.FPPN ---
Subjective Remarks Patient seen and examined this morning with daughter at bedside. Overnight medical team called to evaluate bilateral eye lid erythema and edema likely related to renal failure causing edema. Otherwise no acute events overnight with continued hypertension throughout the night. Patient states that she feels better this morning and is currently without complaint. Patient denies any fevers, chills, shortness of breath, chest pain, NVD, abdominal pain, or calf tenderness. Daughter at bedside has multiple questions about medical plan including possible future procedures such as dialysis and cardiac catheterization. All questions were answered with verbal understanding. (Nate Bass MD R2) Objective Vitals Vital Signs Date Time Temp Pulse Resp B/P (MAP) Pulse Ox O2 Delivery O2 Flow Rate FiO2 04/27/17 08:09 95 Nasal Cannula 2.00 04/27/17 06:00 79 04/27/17 04:00 98.6 78 24 177/78 (111) 93 04/27/17 04:00 78 04/27/17 02:00 68 04/27/17 00:00 98.8 69 30 190/79 (116) 94 04/27/17 00:00 69 04/26/17 22:00 69 04/26/17 20:00 97.7 79 27 152/68 (96) 93 04/26/17 20:00 79 04/26/17 20:00 94 Nasal Cannula 2.00 04/26/17 19:00 93 Nasal Cannula 2.00 04/26/17 18:05 67 15 184/83 (116) 95 04/26/17 18:00 74 24 207/89 (128) 96 04/26/17 18:00 74 04/26/17 17:31 77 26 194/85 (121) 96 04/26/17 17:00 68 19 197/86 (123) 96 04/26/17 16:31 71 18 184/81 (115) 96 04/26/17 16:00 97.9 76 24 187/77 (113) 96 04/26/17 16:00 76 04/26/17 15:33 72 24 176/84 (114) 99 04/26/17 15:30 72 16 206/84 (124) 98 04/26/17 15:00 77 23 182/81 (114) 97 04/26/17 14:30 66 15 174/77 (109) 95 04/26/17 14:00 75 04/26/17 14:00 75 23 169/77 (107) 95 04/26/17 13:48 97.6 75 19 177/73 96 04/26/17 13:30 75 21 177/73 (107) 96 04/26/17 13:00 75 19 171/73 (105) 95 04/26/17 12:30 75 25 171/78 (109) 96 04/26/17 12:00 97.6 75 19 183/75 (111) 94 04/26/17 12:00 75 04/26/17 11:32 73 22 166/79 (108) 97 04/26/17 11:30 98.0 74 24 166/79 98 04/26/17 11:00 77 24 97 04/26/17 10:30 82 24 152/68 (96) 98 04/26/17 10:00 79 04/26/17 10:00 79 19 155/66 (95) 97 04/26/17 09:31 85 28 154/67 (96) 97 04/26/17 09:29 97.9 85 21 180/80 97 04/26/17 09:00 96 21 180/80 (113) 95 04/26/17 08:30 81 26 149/67 (94) 95 I/O 04/26/17 04/26/17 04/26/17 04/27/17 04/27/17 04/27/17 07:00 15:00 23:00 07:00 15:00 23:00 Intake Total 730 ml 562 ml 910 ml 240 ml Output Total 100 ml Balance 730 ml 562 ml 810 ml 240 ml Intake Oral 480 ml 480 ml 240 ml IV Total 250 ml 137 ml Packed Cells 400 ml 400 ml Blood Product IV Normal Saline Flush 25 ml 30 ml Output Urine Total 100 ml # Voids 1 2 # Bowel Movements 1 0 1 (Nate Bass MD R2) Result Diagram: 04/27/1735404/27/17354 Objective Remarks General: Resting in bed in no acute distress with daughter at bedside. Skin: Warm and dry. R ABD: Large hematoma from the right lower quadrant to pelvic area secondary to heart catheterization procedure. No pseudoaneurysm per CT. HEENT: Atraumatic, normocephalic with EOMI. MMM. No rhinorrhea. No JVD or LAD appreciated. CV: Regular rhythm with no MGR. 2+ pulses in all 4 extremities. Lungs: Clear to auscultation bilaterally with no CRW. Decreased air movement overall. No increased work of breathing. Abdomen: Soft, nontender, non-distended with positive bowel sounds. No masses appreciated. MSK: Not assessed at this exam- previously right third toe amputated, no swelling or tenderness Neuro: Awake, alert. Grossly normal CN. No peripheral motor/sensory defects appreciated. Normal speech and judgment. Procedures Vascath 04/22/17 Initiate hemodialysis 04/22/17 (Nate Bass MD R2) A/P Assessment and Plan 61 yo female with NSTEMI, acute COPD exacerbation, acute renal failure with chronic renal disease requiring hemodialysis. Care transferred from manager public to primary care team on 04/22/17. Cardiology and nephrology on board; receiving dialysis. Cath 04/24 with multivessel CAD; plans for CABG. Discharge Planning Pending clinical course. Patient currently scheduled for cardiac catheterization with stenting on Monday and Monday in order to decrease contrast load as she is in acute renal failure. Patient to receive dialysis per nephrology today and after catheterization procedures. (Nate Bass MD R2) Attending Attestation Patient seen and examined. Case reviewed and discussed with the resident team. Agree with plan of care as discussed with me and documented in the resident note. appreciate all help of Cardiology in determining the best plan for her (Cris Santana MD) Problem List: (1) NSTEMI (non-ST elevated myocardial infarction) ICD Codes: I21.4 - Non-ST elevation (NSTEMI) myocardial infarction Status: Acute Plan: Impression: Troponin elevated at admission along with atypical chest pain. Non-specific ST-T wave changes on initial EKG's. ECHO with EF of 45-50% - Cardiology consulted -Heparin drip initiated per Cardiology -Will d/c due to hematoma and anemia - Continue aspirin 81 mg daily - Continue Lipitor 10 mg qHS - Continue Coreg 3.125 mg bid -s/p Catheterization per Dr. 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 Has proteinuria and oliguria with acute decrease in renal function. Her baseline creatinine is about 2.8, now with doubling of creatinine. Also with hyperkalemia and metabolic acidosis. Etiology includes chronic kidney disease with acute exacerbation possibly from poor cardiac output with NSTEMI. Renal ultrasound showing no obstruction, has stone that is non-obstructing Complement negative MIGUE negative Hepatitis profile negative - Nephrology consulted -S/P Dialysis 04/22 and 04/24; Patient scheduled for dialysis 04/27, and 04/28 post cardiac catheterization -Will monitor labs and determine whether additional dialysis pending - ANCA, SPEP, UPEP pending -IVF per Nephrology -Continue to monitor urine output, electrolytes - Avoid nephrotoxic agents, contrast agents (3) Anemia ICD Codes: D64.9 - Anemia, unspecified Status: Acute Plan: Impression: Hemoglobin 10.6 on admission and down trended to 7.0 on 04/26. MCV ~100. No leukopenia or thrombocytopenia. Significant renal disease likely is etiology of baseline low Hgb, however patient currently with groin hematoma c/p cardiac catheterization. -Patient transfused 2 units packed red blood cells 04/26, posttransfusion H/H 11.2/32.9 -Discussed with Cardiology; Heparin will be stopped -CT abdomen and pelvis 04/26: Right inguinal and right lower quadrant abdominal wall hematoma measuring 8.8 cm. Subcutaneous inflammatory changes which extend into the mons pubis region. Bilateral flank edema. Nonacute findings include small left pleural effusion, severe atherosclerotic disease, and sigmoid diverticulosis. No pseudoaneurysm. -Vascular surgery consulted -No surgical intervention needed at this time -Cleared from a vascular standpoint 04/27 (4) Secondary hyperparathyroidism (of renal origin) ICD Codes: N25.81 - Secondary hyperparathyroidism of renal origin Status: Acute Plan: Patient with secondary hyperparathyroidism with significantly elevated phosphate and low calcium. Intact PTH 364.5 1,25 OH Vit D pending - Dietary phosphate restriction to 900 mg/day -Consider PhosLo -Management per Nephrology (5) COPD (chronic obstructive pulmonary disease) ICD Codes: J44.9 - Chronic obstructive pulmonary disease, unspecified Status: Chronic Plan: History of COPD with recent upper respiratory symptoms and acute exacerbation, recently diagnosed with pneumonia while on cruise ship and was started on azithromycin. - IV Solumedrol 60 mg q12hrs started 04/21 - DuoNebs q6hrs scheduled - Levaquin empirically, renally dosed, started 04/22 Q48H - O2 supplementation with target O2 90% (6) Hyperkalemia ICD Codes: E87.5 - Hyperkalemia; N18.9 - Chronic kidney disease, unspecified Status: Resolved Plan: Hyperkalemia up to 6.0 with acute renal failure. Resolved with hemodialysis. - Continue management per nephrology (7) Hyponatremia ICD Codes: E87.1 - Hypo-osmolality and hyponatremia Status: Resolved Plan: Hyponatremia with acute renal failure, asymptomatic - Free water restriction until sodium improved - Hypertonic saline only if symptomatic or severe - Monitor electrolytes - Hemodialysis per nephrology (8) DM2 (diabetes mellitus, type 2) ICD Codes: E11.9 - Type 2 diabetes mellitus without complications Status: Chronic Plan: History of diabetes type II - Sliding scale insulin with glucose goal of 140-180 (9) HTN (hypertension) ICD Codes: I10 - HTN (hypertension) Status: Chronic Plan: Impression: Mild hypertension during hospitalization with SBP 140s-160 - Continue carvedilol 3.125 bid -Will plan for dosage increase if persistent (10) Hypothyroidism ICD Codes: E03.9 - Hypothyroidism, unspecified Status: Chronic Plan: TSH normal - Levothyroxine 50 mcg daily (11) DVT Prophylaxis Status: Acute Plan: Heparin drip discontinued due to anemia/ suspected active bleeding (12) Nutrition, metabolism, and development symptoms ICD Codes: R63.8 - Other symptoms and signs concerning food and fluid intake Status: Acute Plan: Regular diet 1L free water restriction Phosphate restriction 900 mg/day for hyperphosphatemia Hyponatremia, hyperkalemia Receiving dialysis per nephrology Acute renal failure with CKD, monitor renal function Protonix IV 40 mg daily (Nate Bass MD R2) Problem Qualifiers (1) Acute on chronic kidney failure: Qualified Codes: N17.9 - Acute kidney failure, unspecified; N18.9 - Chronic kidney disease, unspecified (2) Anemia: Qualified Codes: D64.9 - Anemia, unspecified (3) DM2 (diabetes mellitus, type 2): (4) HTN (hypertension): Qualified Codes: I10 - Essential (primary) hypertension (5) Hypothyroidism: Qualified Codes: E03.9 - Hypothyroidism, unspecified Nate Bass MD R2 Apr 27, 2017 08:11 Cris Santana MD Apr 28, 2017 12:01
[2017-04-27] MEDS: CARVEDILOL 3.125 MG TAB PO SCH ×2 (09:35→20:59)
[2017-04-27] MEDS: CYANOCOBALAMIN 1,000 MCG TAB PO SCH (09:35)
[2017-04-27] MEDS: PANTOPRAZOLE SODIUM 40 MG VIAL IV PUSH SCH (09:35)
[2017-04-27] MEDS: CALCITRIOL 0.25 MCG CAP PO SCH (09:35)
[2017-04-27] MEDS: DOCUSATE SODIUM 50 MG/SENNA 8.6 MG TAB PO SCH ×2 (09:35→20:59)
[2017-04-27] MEDS: CALCIUM ACETATE 667 MG CAP PO SCH ×3 (09:36→18:39)
[2017-04-27] MEDS: methylPREDNISolone SOD SUCC 125 MG/2 ML VIAL IV PUSH SCH ×2 (09:36→21:00)
[2017-04-27] MEDS: ASPIRIN 81 MG CHEW TAB CHEW SCH (09:36)
--- NOTE | 2017-04-27 10:41 | HHI.NPPN ---
Subjective Renal Failure: Chronic, Acute, Stage IV Interval History Renal function is slightly worse. Urine output may have dropped. Anemia is better. Daughter at bedside. CABG cancelled. (Cris Telles) Review of Systems General Constitutional: Fatigue (Cris Telles) Respiratory Lungs: SOB (Cris Telles) Cardiovascular Cardiac: HAIR (Cris Telles) Objective Data Data Vital Signs Date Time Temp Pulse Resp B/P (MAP) Pulse Ox O2 Delivery O2 Flow Rate FiO2 04/27/17 08:09 95 Nasal Cannula 2.00 04/27/17 08:00 75 04/27/17 08:00 94 Nasal Cannula 1.00 04/27/17 06:00 79 04/27/17 04:00 98.6 78 24 177/78 (111) 93 04/27/17 04:00 78 04/27/17 02:00 68 04/27/17 00:00 98.8 69 30 190/79 (116) 94 04/27/17 00:00 69 04/26/17 22:00 69 04/26/17 20:00 97.7 79 27 152/68 (96) 93 04/26/17 20:00 79 04/26/17 20:00 94 Nasal Cannula 2.00 04/26/17 19:00 93 Nasal Cannula 2.00 04/26/17 18:05 67 15 184/83 (116) 95 04/26/17 18:00 74 24 207/89 (128) 96 04/26/17 18:00 74 04/26/17 17:31 77 26 194/85 (121) 96 04/26/17 17:00 68 19 197/86 (123) 96 04/26/17 16:31 71 18 184/81 (115) 96 04/26/17 16:00 97.9 76 24 187/77 (113) 96 04/26/17 16:00 76 04/26/17 15:33 72 24 176/84 (114) 99 04/26/17 15:30 72 16 206/84 (124) 98 04/26/17 15:00 77 23 182/81 (114) 97 04/26/17 14:30 66 15 174/77 (109) 95 04/26/17 14:00 75 04/26/17 14:00 75 23 169/77 (107) 95 04/26/17 13:48 97.6 75 19 177/73 96 04/26/17 13:30 75 21 177/73 (107) 96 04/26/17 13:00 75 19 171/73 (105) 95 04/26/17 12:30 75 25 171/78 (109) 96 04/26/17 12:00 97.6 75 19 183/75 (111) 94 04/26/17 12:00 75 04/26/17 11:32 73 22 166/79 (108) 97 04/26/17 11:30 98.0 74 24 166/79 98 04/26/17 11:00 77 24 97 (Cris Telles) -: 04/27/17 0355 04/27/17 0355 Imaging Last 72 hours Impressions Abdomen/Pelvis CT 04/26/17 0917 Signed Impressions: Service Date/Time: Wednesday, April 26, 2017 11:16 - CONCLUSION: 1. There is a right inguinal and right lower quadrant abdominal wall hematoma measuring up to 8.8 cm. There is surrounding subcutaneous inflammatory changes which extend into the mons pubis region. 2. There is bilateral flank edema. 3. Nonacute findings include small left pleural effusion, severe atherosclerotic disease, and sigmoid diverticulosis. Keegan Santos MD Lower Extremity Ultrasound 04/26/17 0000 Signed Impressions: Service Date/Time: Wednesday, April 26, 2017 14:24 - CONCLUSION: Large groin hematoma. No evidence of pseudoaneurysm Keegan Cedeno MD Tubes & Lines: Vas-Cath, Adan (Cris Telles) Physical Exam General Appearance: Well Developed, Well Nourished, No Acute Distress, Comfortable (Cris Telles) Eyes Eye Exam: Pupils Equal (Cris Telles) Throat Throat Exam: Oral Mucosa Kel[place] & Moist (Cris Telles) Neck Neck Exam: Neck Supple (Cris Telles) Pulmonary Resp Exam: No Distress, Crackles, Rhonchi, Sputum, Decreased Bases, Diminished Breath Sounds (Cris Telles) Cardiology CV Exam: Regular, Normal Sinus Rhythm, Good Perfusion (Cris Telles) Gastrointestinal/Abdomen GI Exam: Soft, Non-Tender, Bowel Sounds Present GI Remarks RLQ ecchymosis (Cris Telles) Genitourinary Exam: Clear Urine (Cris Telles) Musculoskeletal MS Exam: Joints Intact, Normal Tone, Good Strength (Cris TellesP) Integumentary Skin Exam: Clear, Warm, Dry, Intact (Cris Telles TEST AUTOMATION ARCHITECT) Extremeties Extremities Exam: Pedal Pulses Palpable, Trace Edema, Pitting Edema (Cris Telles TEST AUTOMATION ARCHITECT) Neurologic Neuro Exam: Alert, Awake, Oriented, Speech Clear, Moving All Extremities (Cris Telles) Psychiatric Psych Exam: Appropriate Responses (Cris Telles) Assessment/Plan Discussed Condition With: Patient Assessment Summary: LEEANN/Acute Renal Failure, [place] Hyperparathyroid, Proteinuria, Hypertension, Diabetes Mellitus, CKD Stage IV Electrolyte Assessment: Hypocalcemia Problem List: (1) Acute on chronic kidney failure ICD Codes: N17.9 - Acute kidney failure, unspecified; N18.9 - Chronic kidney disease, unspecified Status: Acute Plan: She has advanced renal disease, Creatinine 2.8 at baseline, CKD 4 Suspected underlying diabetic nephropathy, heavy proteinuria in the past All serologies normal; SPEP and urine immunofixation also normal LEEANN likely due to NSTEMI and decreased renal perfusion HD initiated on 04/22 We will dialyze today, again tomorrow (Monday) after cardiac cath, and again on Monday after repeat cath repeat labs daily, it remains to be seen if she will require fci HD Off IVF, tolerating oral fluids Monitor urine output Repeat renal panel in AM Vascath in place for HD (2) DM2 (diabetes mellitus, type 2) ICD Codes: E11.9 - Type 2 diabetes mellitus without complications Status: Chronic Plan: Insulin as needed to maintain glucose of 140-180 mg/dL while hospitalized (3) NSTEMI (non-ST elevated myocardial infarction) ICD Codes: I21.4 - Non-ST elevation (NSTEMI) myocardial infarction Status: Acute Plan: Cardiology is following Off heparin gtt due to bleeding 2D echo: LVH, EF 45-50% s/p cardiac catheterization with multivessel disease; CABG cancelled Plan for cath Monday and Monday, stent to L circ and LAD (4) Metabolic bone disease ICD Codes: E88.9 - Metabolic disorder, unspecified; M90.80 - Osteopathy in diseases classified elsewhere, unspecified site Plan: Continue Calcium acetate Start calcitriol for secondary hyperparathyroidism (5) Hyperkalemia ICD Codes: E87.5 - Hyperkalemia; N18.9 - Chronic kidney disease, unspecified Status: Resolved Plan: Due to reduction in GFR and metabolic acidosis Improved with dialysis, monitor for recurrence (6) Metabolic acidosis ICD Codes: E87.2 - Acidosis Status: Acute Plan: Corrected, stop Bicarb gtt Follow metabolic profile (7) COPD with acute exacerbation ICD Codes: J44.1 - Chronic obstructive pulmonary disease with (acute) exacerbation Plan: On nebulizers, oxygen She is also on Levaquin and solumedrol (8) Anemia ICD Codes: D64.9 - Anemia, unspecified Status: Acute Plan: Improved after [address] abd/pelvis confirmed hematoma, off anticoagulation, monitor Plan patient was seen and examined. Non oliguric. Acute blood loss anemia due to development of groin, right abdominal wall hematoma. Blood transfusion is ordered. Monitor urine output and renal function. It is still possible that she will need continued dialysis support. Start diuretics. (Cris Telles) Plan patient was seen and examined. Agree with above assessment and plan. I discussed at length with patient and her daughter and attempted to answer all their questions. It is unclear at this time if the patient has reached ESRD. She has heavy proteinuria, and is going to require more angiographic pictures. She is definitely at high risk for progressive renal dysfunction and ESRD. (Fantasma Corral MD) Problem Qualifiers (1) Acute on chronic kidney failure: Qualified Codes: N17.9 - Acute kidney failure, unspecified; N18.9 - Chronic kidney disease, unspecified (2) DM2 (diabetes mellitus, type 2): (3) Anemia: Qualified Codes: D64.9 - Anemia, unspecified Cris Telles Apr 27, 2017 10:41 Fantasma Corral MD Apr 27, 2017 17:54
--- NOTE | 2017-04-27 11:05 | PD.VS.PN ---
Subjective Subjective/Hospital Course Pt sitting up in bed alert in NAD Ecchymosis with swelling noted to R groin region w/o worsening pain or swelling per pt Pt reported mild discomfort to R groin Objective Vitals/I&O Date Time Temp Pulse Resp B/P (MAP) Pulse Ox O2 Delivery O2 Flow Rate FiO2 04/27/17 10:00 75 19 162/77 (105) 96 04/27/17 09:00 78 20 138/63 (88) 94 04/27/17 08:09 95 Nasal Cannula 2.00 04/27/17 08:01 97.6 76 18 157/71 (99) 94 04/27/17 08:00 75 04/27/17 08:00 94 Nasal Cannula 1.00 04/27/17 07:01 66 24 172/79 (110) 96 04/27/17 06:00 79 04/27/17 04:00 98.6 78 24 177/78 (111) 93 04/27/17 04:00 78 04/27/17 02:00 68 04/27/17 00:00 98.8 69 30 190/79 (116) 94 04/27/17 00:00 69 04/26/17 22:00 69 04/26/17 20:00 97.7 79 27 152/68 (96) 93 04/26/17 20:00 79 04/26/17 20:00 94 Nasal Cannula 2.00 04/26/17 19:00 93 Nasal Cannula 2.00 04/26/17 18:05 67 15 184/83 (116) 95 04/26/17 18:00 74 24 207/89 (128) 96 04/26/17 18:00 74 04/26/17 17:31 77 26 194/85 (121) 96 04/26/17 17:00 68 19 197/86 (123) 96 04/26/17 16:31 71 18 184/81 (115) 96 04/26/17 16:00 97.9 76 24 187/77 (113) 96 04/26/17 16:00 76 04/26/17 15:33 72 24 176/84 (114) 99 04/26/17 15:30 72 16 206/84 (124) 98 04/26/17 15:00 77 23 182/81 (114) 97 04/26/17 14:30 66 15 174/77 (109) 95 04/26/17 14:00 75 04/26/17 14:00 75 23 169/77 (107) 95 04/26/17 13:48 97.6 75 19 177/73 96 04/26/17 13:30 75 21 177/73 (107) 96 04/26/17 13:00 75 19 171/73 (105) 95 04/26/17 12:30 75 25 171/78 (109) 96 04/26/17 12:00 97.6 75 19 183/75 (111) 94 04/26/17 12:00 75 04/26/17 11:32 73 22 166/79 (108) 97 04/26/17 11:30 98.0 74 24 166/79 98 04/26/17 11:00 77 24 97 04/27/17 04/27/17 04/27/17 07:00 15:00 23:00 Intake Total 240 ml Balance 240 ml Physical Exam GENERAL: A&OX3, NAD,GCS15 SKIN: Warm and dry Right groin with mild swelling and ecchymosis from RLQ abdomen to R pelvic region MUSCULOSKELETAL: No cyanosis, or edema. LE warm with motor intact Strong Palpable L/R DP Laboratory Laboratory Tests Test 04/26/17 21:20 04/27/17 03:55 Hemoglobin 11.2 11.1 Hematocrit 32.9 32.5 White Blood Count 16.7 Red Blood Count 3.47 Mean Corpuscular Volume 93.7 Mean Corpuscular Hemoglobin 32.0 Mean Corpuscular Hemoglobin Concent 34.1 Red Cell Distribution Width 14.8 Platelet Count 168 Mean Platelet Volume 9.2 Neutrophils (%) (Auto) 94.5 Lymphocytes (%) (Auto) 2.9 Monocytes (%) (Auto) 2.4 Eosinophils (%) (Auto) 0.0 Basophils (%) (Auto) 0.2 Neutrophils # (Auto) 15.8 Lymphocytes # (Auto) 0.5 Monocytes # (Auto) 0.4 Eosinophils # (Auto) 0.0 Basophils # (Auto) 0.0 CBC Comment AUTO DIFF Differential Comment AUTO DIFF CONFIRMED Toxic Granulation 1+ Toxic Vacuolation PRESENT Platelet Estimate NORMAL Platelet Morphology Comment NORMAL Prothrombin Time 10.9 Prothromb Time International Ratio 1.0 Activated Partial Thromboplast Time 22.7 Blood Urea Nitrogen 107 Creatinine 4.58 Random Glucose 198 Total Protein 5.0 Albumin 2.0 Calcium Level 7.8 Alkaline Phosphatase 73 Aspartate Amino Transf (AST/SGOT) 18 Alanine Aminotransferase (ALT/SGPT) 22 Total Bilirubin 0.5 Sodium Level 134 Potassium Level 4.3 Chloride Level 98 Carbon Dioxide Level 25.8 Anion Gap 10 Estimat Glomerular Filtration Rate 10 Date/Time Source Procedure Growth Status 04/21/17 04:40 Nasal Aspirate Influenza Types A,B Antigen (CHUCK) - Final NEGATIVE FOR FLU A AND B ANTIGEN.... Complete 04/21/17 08:20 Urine Catheterized Urine Urine Culture - Final NO GROWTH IN 48 HOURS. Complete Imaging Last 48 hours Impressions Abdomen/Pelvis CT 04/26/17 0917 Signed Impressions: Service Date/Time: Wednesday, April 26, 2017 11:16 - CONCLUSION: 1. There is a right inguinal and right lower quadrant abdominal wall hematoma measuring up to 8.8 cm. There is surrounding subcutaneous inflammatory changes which extend into the mons pubis region. 2. There is bilateral flank edema. 3. Nonacute findings include small left pleural effusion, severe atherosclerotic disease, and sigmoid diverticulosis. Keegan Santos MD Lower Extremity Ultrasound 04/26/17 0000 Signed Impressions: Service Date/Time: Wednesday, April 26, 2017 14:24 - CONCLUSION: Large groin hematoma. No evidence of pseudoaneurysm Keegan Cedeno MD Assessment and Plan Plan Pt with R groin/flank hematoma that likely is dependent from periprocedural around [facility]; Hct stable and no malperfusion of R LE and no skin threat at present 1. Ideally would get CTA but given new onset renal failure and potential for return of renal function, I think a R groin duplex is reasonable looking for active extravasation 2. Even if pseudoaneurysm, the vast majority heal without intervention and clinically at present no need for intervention 3. Follow serial Hcts, R LE pulse checks and skin checks overlying hematoma Dominick Manzanares MD FACS VI floor worker transfer bay [facility] - Heart and Vascular Surgery at [facility] [phone] PLAN Reviewed Imaging studies (Hematoma present/NO pseudoaneurysm) No surgical intervention needed at this time Discussed w/ pt Pt clear for d/c from a vascular stand point Rachelle Patel [facility]/[place] [phone] [facility] Apr 27, 2017 11:05
[2017-04-27] MEDS: LEVOFLOXACIN 500 MG PREMIX INJ 100 ML IV SCH (12:00)
[2017-04-27 13:18] LABS: HEMATOCRIT 36.3 % (35.0-46.0); REVIEW FLAG FINAL
[2017-04-27] MEDS: cloNIDine HCL 0.1 MG TAB PO PRN ×2 (14:09→22:31)
--- NOTE | 2017-04-27 16:12 | PD.CARD.PN ---
Subjective Subjective Remarks No complaints Right groin better today No chest pain/SOB Urine output down today Objective Medications Current Medications Medications (Trade) Dose Ordered Sig/Des Route Start Time Stop Time Status Last Admin (Heparin Inj) 5,000 units UNSCH PRN IV PUSH 04/21/17 11:45 (Heparin Inj) 2,500 units UNSCH PRN IV PUSH 04/21/17 11:45 Heparin Sodium/ Dextrose 250 ml @ 9 mls/hr TITRATE PRN IV 04/21/17 05:45 04/25/17 23:37 (NS Flush) 2 ml UNSCH PRN IV FLUSH 04/21/17 06:45 04/27/17 14:10 (NS Flush) 2 ml BID IV FLUSH 04/21/17 09:00 04/27/17 09:37 (Protonix Inj) 40 mg DAILY IV PUSH 04/21/17 09:00 04/27/17 09:35 (Duoneb Neb) 1 ampule Q4HR NEB PRN INH 04/21/17 06:45 Miscellaneous Information 1 Q361D XX 04/21/17 06:45 (Chlorhexidine 2% Cloth) Taper DAILY@04 TOP 04/22/17 04:00 04/18/18 03:59 04/27/17 00:35 (Chlorhexidine 2% Cloth) 3 pack UNSCH PRN TOP 04/21/17 06:45 (Malaika-Colace) 1 tab BID PO 04/21/17 09:00 04/27/17 09:35 (Milk Of Magnesia Liq) 30 ml Q12H PRN PO 04/21/17 06:45 (Senokot) 17.2 mg Q12H PRN PO 04/21/17 06:45 (Dulcolax Supp) 10 mg DAILY PRN RECTAL 04/21/17 06:45 (Lactulose Liq) 30 ml DAILY PRN PO 04/21/17 06:45 (Aspirin Chew) 81 mg DAILY CHEW 04/22/17 09:00 04/27/17 09:36 (Coreg) 3.125 mg Q12HR PO 04/21/17 09:00 04/27/17 09:35 (Lipitor) 10 mg HS PO 04/21/17 21:00 04/26/17 20:53 (Vitamin B12) 500 mcg DAILY PO 04/21/17 09:00 04/27/17 09:35 (Synthroid) 50 mcg DAILY@0600 PO 04/21/17 07:00 04/27/17 03:53 (NovoLOG SUPPLEMENTAL SCALE) 1 Q4HR SQ 04/21/17 08:00 04/27/17 12:00 (SoluMEDROL INJ) 60 mg Q12HR IV PUSH 04/21/17 11:30 04/27/17 09:36 Levofloxacin/ Dextrose 100 ml @ 100 mls/hr Q48H IV 04/21/17 12:00 04/27/17 12:00 (Restoril) 15 mg HS PRN PO 04/21/17 20:45 04/26/17 20:53 Sodium Chloride 1,000 ml @ 0 mls/hr Q0M PRN OTHER 04/22/17 14:04 (Heparin Inj) 8,000 units UNSCH PRN IV FLUSH 04/22/17 14:15 04/24/17 12:11 Sodium Chloride 1,000 ml @ 200 mls/hr Q5H PRN IV 04/22/17 14:04 Sodium Chloride 1,000 ml @ 0 mls/hr Q0M PRN OTHER 04/22/17 14:04 (Mannitol Inj) 12.5 gm UNSCH PRN IV 04/22/17 14:15 Albumin Human 100 ml @ 60 mls/hr UNSCH PRN IV 04/22/17 14:15 (NS Flush) 5 ml UNSCH PRN IV FLUSH 04/22/17 14:15 (Heparin Inj) UNSCH PRN .XX 04/22/17 14:15 (Gentamicin (Dialysis) Inj) 20 mg UNSCH PRN OTHER 04/22/17 14:15 04/24/17 12:10 (Zofran Inj) 4 mg UNSCH PRN IV PUSH 04/22/17 14:15 (Tylenol) 650 mg UNSCH PRN PO 04/22/17 14:15 04/25/17 12:21 (Benadryl) 25 mg UNSCH PRN PO 04/22/17 14:15 (Nitrostat Sl) 0.4 mg UNSCH PRN SL 04/22/17 14:15 (Catapres) 0.1 mg UNSCH PRN PO 04/22/17 14:15 04/27/17 14:09 (Gelfoam 12 Mm/7 Mm Top) 1 foam UNSCH PRN TOP 04/22/17 14:15 (Apresoline Inj) 10 mg Q30M PRN IV PUSH 04/23/17 13:15 04/27/17 15:44 (Phoslo) 2,001 mg TID PO 04/23/17 18:00 04/27/17 12:56 (Rocaltrol) 0.25 mcg DAILY PO 04/24/17 09:15 04/27/17 09:35 (Atropine Inj) 0.5 mg UNSCH PRN IV PUSH 04/24/17 10:00 (NS Flush) 2 ml BID IV FLUSH 04/24/17 21:00 04/27/17 00:34 (NS Flush) 2 ml UNSCH PRN IV FLUSH 04/24/17 15:45 (Lopressor) 12.5 mg [employer]OUND [employer]ENT PO 04/24/17 15:45 05/01/17 15:44 (Hibiclens 4% Top Soln) 1 applic [employer]ICE [employer]ENT TOPICAL 04/24/17 15:45 05/01/17 15:44 (D50w (Vial) Inj) 50 ml UNSCH PRN IV PUSH 04/24/17 15:45 (Morphine Inj) 2 mg Q3H PRN IV PUSH 04/26/17 09:30 04/26/17 20:54 (Bumex Inj) 2 mg BID@,18 IV PUSH 04/26/17 20:45 04/27/17 09:37 Vital Signs / I&O Vital Signs Date Time Temp Pulse Resp B/P (MAP) Pulse Ox O2 Delivery O2 Flow Rate FiO2 04/27/17 10:00 75 19 162/77 (105) 96 04/27/17 09:00 78 20 138/63 (88) 94 04/27/17 08:09 95 Nasal Cannula 2.00 04/27/17 08:01 97.6 76 18 157/71 (99) 94 04/27/17 08:00 75 04/27/17 08:00 94 Nasal Cannula 1.00 04/27/17 07:01 66 24 172/79 (110) 96 04/27/17 06:00 79 04/27/17 04:00 98.6 78 24 177/78 (111) 93 04/27/17 04:00 78 04/27/17 02:00 68 04/27/17 00:00 98.8 69 30 190/79 (116) 94 04/27/17 00:00 69 04/26/17 22:00 69 04/26/17 20:00 97.7 79 27 152/68 (96) 93 04/26/17 20:00 79 04/26/17 20:00 94 Nasal Cannula 2.00 04/26/17 19:00 93 Nasal Cannula 2.00 04/26/17 18:05 67 15 184/83 (116) 95 04/26/17 18:00 74 24 207/89 (128) 96 04/26/17 18:00 74 04/26/17 17:31 77 26 194/85 (121) 96 04/26/17 17:00 68 19 197/86 (123) 96 04/26/17 16:31 71 18 184/81 (115) 96 I/O 04/26/17 04/26/17 04/26/17 04/27/17 04/27/17 04/27/17 07:00 15:00 23:00 07:00 15:00 23:00 Intake Total 730 ml 562 ml 910 ml 240 ml Output Total 100 ml Balance 730 ml 562 ml 810 ml 240 ml Intake Oral 480 ml 480 ml 240 ml IV Total 250 ml 137 ml Packed Cells 400 ml 400 ml Blood Product IV Normal Saline Flush 25 ml 30 ml Output Urine Total 100 ml # Voids 1 2 # Bowel Movements 1 0 1 Physical Exam GENERAL: NAD, AAOx3 SKIN: Warm and dry. HEAD: Atraumatic. Normocephalic. EYES: Pupils equal and round. No scleral icterus. No injection or drainage. ENT: No nasal bleeding or discharge. Mucous membranes pink and moist. NECK: Trachea midline. No JVD. CARDIOVASCULAR: Regular rate and rhythm. RESPIRATORY: No accessory muscle use. Clear to auscultation. Breath sounds equal bilaterally. GASTROINTESTINAL: Abdomen soft, non-tender, nondistended. Hepatic and splenic margins not palpable. MUSCULOSKELETAL: Extremities without clubbing, cyanosis, or edema. No obvious deformities. Right femoral with ecchymosis and less tender to touch NEUROLOGICAL: Awake and alert. No obvious cranial nerve deficits. Motor grossly within normal limits. Five out of 5 muscle strength in the arms and legs. Normal speech. PSYCHIATRIC: Appropriate mood and affect; insight and judgment normal. Laboratory Laboratory Tests Test 04/26/17 21:20 04/27/17 03:55 04/27/17 11:47 Hemoglobin 11.2 GM/DL 11.1 GM/DL 12.3 GM/DL Hematocrit 32.9 % 32.5 % 36.3 % White Blood Count 16.7 TH/MM3 Red Blood Count 3.47 MIL/MM3 Mean Corpuscular Volume 93.7 FL Mean Corpuscular Hemoglobin 32.0 PG Mean Corpuscular Hemoglobin Concent 34.1 % Red Cell Distribution Width 14.8 % Platelet Count 168 TH/MM3 Mean Platelet Volume 9.2 FL Neutrophils (%) (Auto) 94.5 % Lymphocytes (%) (Auto) 2.9 % Monocytes (%) (Auto) 2.4 % Eosinophils (%) (Auto) 0.0 % Basophils (%) (Auto) 0.2 % Neutrophils # (Auto) 15.8 TH/MM3 Lymphocytes # (Auto) 0.5 TH/MM3 Monocytes # (Auto) 0.4 TH/MM3 Eosinophils # (Auto) 0.0 TH/MM3 Basophils # (Auto) 0.0 TH/MM3 CBC Comment AUTO DIFF Differential Comment AUTO DIFF CONFIRMED Toxic Granulation 1+ Toxic Vacuolation PRESENT Platelet Estimate NORMAL Platelet Morphology Comment NORMAL Prothrombin Time 10.9 SEC Prothromb Time International Ratio 1.0 RATIO Activated Partial Thromboplast Time 22.7 SEC Blood Urea Nitrogen 107 MG/DL Creatinine 4.58 MG/DL Random Glucose 198 MG/DL Total Protein 5.0 GM/DL Albumin 2.0 GM/DL Calcium Level 7.8 MG/DL Alkaline Phosphatase 73 U/L Aspartate Amino Transf (AST/SGOT) 18 U/L Alanine Aminotransferase (ALT/SGPT) 22 U/L Total Bilirubin 0.5 MG/DL Sodium Level 134 MEQ/L Potassium Level 4.3 MEQ/L Chloride Level 98 MEQ/L Carbon Dioxide Level 25.8 MEQ/L Anion Gap 10 MEQ/L Estimat Glomerular Filtration Rate 10 ML/MIN Assessment and Plan Problem List: (1) NSTEMI (non-ST elevated myocardial infarction) ICD Codes: I21.4 - Non-ST elevation (NSTEMI) myocardial infarction Status: Acute (2) Acute on chronic kidney failure ICD Codes: N17.9 - Acute kidney failure, unspecified; N18.9 - Chronic kidney disease, unspecified Status: Acute (3) HTN (hypertension) ICD Codes: I10 - HTN (hypertension) Status: Chronic (4) HLD (hyperlipidemia) ICD Codes: E78.5 - HLD (hyperlipidemia) Status: Chronic (5) Anemia ICD Codes: D64.9 - Anemia, unspecified Status: Acute Assessment and Plan 1) NSTEMI/CAD Multivessel CAD ASA/BB/Statin Turned down for CABG Discussed with her planned PCI of LCX and LAD Most likely Monday and Monday depending on hospital course (plan for 2 separate procedures to decrease contrast use) 2) LEEANN on CKD HD started Still making urine Attempt to decrease nephrotoxin medications (contrast) if possible, not sure if chronic yet 3) Anemia Post-procedure Now with right groin hematoma No PSA or RPB Discussed with Dr. Manzanares, will continue to follow Problem Qualifiers (1) Acute on chronic kidney failure: Qualified Codes: N17.9 - Acute kidney failure, unspecified; N18.9 - Chronic kidney disease, unspecified (2) HTN (hypertension): Qualified Codes: I10 - Essential (primary) hypertension (3) HLD (hyperlipidemia): Qualified Codes: E78.5 - Hyperlipidemia, unspecified (4) Anemia: Qualified Codes: D64.9 - Anemia, unspecified Hemanth Cole DO Apr 27, 2017 16:12
[2017-04-27 16:49] LABS: HEMOGLOBIN A1a 1.2 %; HEMOGLOBIN A1b 2.4 %; HEMOGLOBIN Ao 81.9 %; HEMOGLOBIN LA1C 3.1 %; HEMOGLOBIN P3 6.6 %
[2017-04-27] MEDS: ATORVASTATIN 10 MG TAB PO SCH (20:59)
[2017-04-27] MEDS: TEMAZEPAM 15 MG CAP PO PRN (22:31)
[2017-04-28] VITALS (19 sets, daily range): BP systolic 140–186; BP diastolic 59–84; PULSE 63–80; RESP 16–18; TEMP 97–98.6; O2SAT 90–97
[2017-04-28] MEDS: CHLORHEXIDINE GLUCONATE 2 % 1 PACK (2 CLOTHS) TOP SCH (00:22)
[2017-04-28] MEDS: INSULIN ASPART SUPPLEMENTAL SCALE SQ SCH ×4 (00:22→20:00)
[2017-04-28] MEDS: hydrALAZINE HCL 20 MG/ML VIAL IV PUSH PRN (00:22)
[2017-04-28] MEDS: LEVOTHYROXINE SODIUM 50 MCG TAB PO SCH (05:34)
[2017-04-28 06:29] LABS: AUTOMATED NEUTROPHIL # 16.1 TH/MM3 (1.8-7.7); HEMATOCRIT 31.9 % (35.0-46.0); HEMO FLAGS DIFF FINAL; LYMPH % 2.8 % (9.0-44.0); LYMPHOCYTE # 0.5 TH/MM3 (1.0-4.8); MEAN CELL VOLUME 93.6 FL (80.0-100.0); MEAN CORPUSCULAR HEMOGLOBIN 32.3 PG (27.0-34.0); MEAN CORPUSCULAR HGB CONC 34.5 % (32.0-36.0); MONO % 3.7 % (0.0-8.0); NEUT % 93.5 % (16.0-70.0); PLATELET COUNT 176 TH/MM3 (150-450); RED BLOOD COUNT 3.41 MIL/MM3 (4.00-5.30); RED CELL DISTRIBUTION WIDTH 14.5 % (11.6-17.2); WHITE BLOOD COUNT 17.2 TH/MM3 (4.0-11.0)
[2017-04-28 06:40] LABS: APTT (PATIENT) 24.5 SEC (24.3-30.1)
[2017-04-28 07:11] LABS: ALKALINE PHOSPHATASE 71 U/L (45-117); ALT (GPT) 24 U/L (10-53); ANION GAP 11 MEQ/L (5-15); AST (GOT) 13 U/L (15-37); BICARBONATE 27.3 MEQ/L (21.0-32.0); BLOOD UREA NITROGEN 126 MG/DL (7-18); CHLORIDE 96 MEQ/L (98-107); GLOMERULAR FILTRATION RATE 10 ML/MIN (>89); POTASSIUM 4.2 MEQ/L (3.5-5.1); SODIUM (NA) 134 MEQ/L (136-145); TOTAL BILIRUBIN ADULT 0.5 MG/DL (0.2-1.0)
--- NOTE | 2017-04-28 07:55 | HHI.FPPN ---
Objective Vitals Vital Signs Date Time Temp Pulse Resp B/P (MAP) Pulse Ox O2 Delivery O2 Flow Rate FiO2 04/28/17 07:10 Room Air 04/28/17 06:03 75 04/28/17 04:49 98.5 69 147/68 (94) 90 04/28/17 04:00 70 04/28/17 03:00 73 04/28/17 02:00 72 04/28/17 01:15 97.0 70 186/84 (118) 94 04/28/17 01:00 72 04/28/17 00:00 80 04/27/17 23:19 77 04/27/17 22:00 80 04/27/17 21:51 73 04/27/17 20:30 96.9 78 183/85 (117) 94 04/27/17 20:05 95 Nasal Cannula 2.00 04/27/17 20:00 97.8 85 17 168/78 (108) 94 04/27/17 20:00 85 04/27/17 16:00 78 04/27/17 16:00 78 18 183/84 (117) 93 04/27/17 12:00 83 04/27/17 12:00 83 18 186/84 (118) 93 04/27/17 10:00 75 19 162/77 (105) 96 04/27/17 09:00 78 20 138/63 (88) 94 04/27/17 08:09 95 Nasal Cannula 2.00 04/27/17 08:01 97.6 76 18 157/71 (99) 94 04/27/17 08:00 75 04/27/17 08:00 94 Nasal Cannula 1.00 I/O 04/27/17 04/27/17 04/27/17 04/28/17 04/28/17 04/28/17 07:00 15:00 23:00 07:00 15:00 23:00 Intake Total 240 ml 480 ml 120 ml Output Total 300 ml 275 ml Balance 240 ml 180 ml -155 ml Intake Oral 240 ml 480 ml 120 ml Output Urine Total 300 ml 275 ml # Voids 2 6 1 # Bowel Movements 1 0 Result Diagram: 04/28/17 0559 04/28/1759 Objective Remarks General: Resting in bed in no acute distress with daughter at bedside. Skin: Warm and dry. R ABD: Large hematoma from the right lower quadrant to pelvic area secondary to heart catheterization procedure. No pseudoaneurysm per CT. HEENT: Atraumatic, normocephalic with EOMI. MMM. No rhinorrhea. No JVD or LAD appreciated. CV: Regular rhythm with no MGR. 2+ pulses in all 4 extremities. Lungs: Clear to auscultation bilaterally with no CRW. Decreased air movement overall. No increased work of breathing. Abdomen: Soft, nontender, non-distended with positive bowel sounds. No masses appreciated. MSK: Not assessed at this exam- previously right third toe amputated, no swelling or tenderness Neuro: Awake, alert. Grossly normal CN. No peripheral motor/sensory defects appreciated. Normal speech and judgment. Procedures Vascath 04/22/17 Initiate hemodialysis 04/22/17 A/P Assessment and Plan 61 yo female with NSTEMI, acute COPD exacerbation, acute renal failure with chronic renal disease requiring hemodialysis. Care transferred from [facility] to primary care team on 04/22/17. Cardiology and nephrology on board; receiving dialysis. Cath 04/24 with multivessel CAD; plans for CABG. Discharge Planning Pending clinical course. Patient currently scheduled for cardiac catheterization with stenting on Monday and Monday in order to decrease contrast load as she is in acute renal failure. Patient to receive dialysis per nephrology today and after catheterization procedures. Problem List: (1) NSTEMI (non-ST elevated myocardial infarction) ICD Codes: I21.4 - Non-ST elevation (NSTEMI) myocardial infarction Status: Acute Plan: Impression: Troponin elevated at admission along with atypical chest pain. Non-specific ST-T wave changes on initial EKG's. ECHO with EF of 45-50% - Cardiology consulted -Heparin drip initiated per Cardiology -Will d/c due to hematoma and anemia - Continue aspirin 81 mg daily - Continue Lipitor 10 mg qHS - Continue Coreg 3.125 mg bid -s/p Catheterization per Dr. 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 Has proteinuria and oliguria with acute decrease in renal function. Her baseline creatinine is about 2.8, now with doubling of creatinine. Also with hyperkalemia and metabolic acidosis. Etiology includes chronic kidney disease with acute exacerbation possibly from poor cardiac output with NSTEMI. Renal ultrasound showing no obstruction, has stone that is non-obstructing Complement negative MIGUE negative Hepatitis profile negative - Nephrology consulted -S/P Dialysis 04/22 and 04/24; Patient scheduled for dialysis 04/27, and 04/28 post cardiac catheterization -Will monitor labs and determine whether additional dialysis pending - ANCA, SPEP, UPEP pending -IVF per Nephrology -Continue to monitor urine output, electrolytes - Avoid nephrotoxic agents, contrast agents (3) Anemia ICD Codes: D64.9 - Anemia, unspecified Status: Acute Plan: Impression: Hemoglobin 10.6 on admission and down trended to 7.0 on 04/26. MCV ~100. No leukopenia or thrombocytopenia. Significant renal disease likely is etiology of baseline low Hgb, however patient currently with groin hematoma c/p cardiac catheterization. -Patient transfused 2 units packed red blood cells 04/26, posttransfusion H/H 11.2/32.9 -Discussed with Cardiology; Heparin will be stopped -CT abdomen and pelvis 04/26: Right inguinal and right lower quadrant abdominal wall hematoma measuring 8.8 cm. Subcutaneous inflammatory changes which extend into the mons pubis region. Bilateral flank edema. Nonacute findings include small left pleural effusion, severe atherosclerotic disease, and sigmoid diverticulosis. No pseudoaneurysm. -Vascular surgery consulted -No surgical intervention needed at this time -Cleared from a vascular standpoint 04/27 (4) Secondary hyperparathyroidism (of renal origin) ICD Codes: N25.81 - Secondary hyperparathyroidism of renal origin Status: Acute Plan: Patient with secondary hyperparathyroidism with significantly elevated phosphate and low calcium. Intact PTH 364.5 1,25 OH Vit D pending - Dietary phosphate restriction to 900 mg/day -Consider PhosLo -Management per Nephrology (5) COPD (chronic obstructive pulmonary disease) ICD Codes: J44.9 - Chronic obstructive pulmonary disease, unspecified Status: Chronic Plan: History of COPD with recent upper respiratory symptoms and acute exacerbation, recently diagnosed with pneumonia while on cruise ship and was started on azithromycin. - IV Solumedrol 60 mg q12hrs started 04/21 - DuoNebs q6hrs scheduled - Levaquin empirically, renally dosed, started 04/22 Q48H - O2 supplementation with target O2 90% (6) Hyperkalemia ICD Codes: E87.5 - Hyperkalemia; N18.9 - Chronic kidney disease, unspecified Status: Resolved Plan: Hyperkalemia up to 6.0 with acute renal failure. Resolved with hemodialysis. - Continue management per nephrology (7) Hyponatremia ICD Codes: E87.1 - Hypo-osmolality and hyponatremia Status: Resolved Plan: Hyponatremia with acute renal failure, asymptomatic - Free water restriction until sodium improved - Hypertonic saline only if symptomatic or severe - Monitor electrolytes - Hemodialysis per nephrology (8) DM2 (diabetes mellitus, type 2) ICD Codes: E11.9 - Type 2 diabetes mellitus without complications Status: Chronic Plan: History of diabetes type II - Sliding scale insulin with glucose goal of 140-180 (9) HTN (hypertension) ICD Codes: I10 - HTN (hypertension) Status: Chronic Plan: Impression: Mild hypertension during hospitalization with SBP 140s-160 - Continue carvedilol 3.125 bid -Will plan for dosage increase if persistent (10) Hypothyroidism ICD Codes: E03.9 - Hypothyroidism, unspecified Status: Chronic Plan: TSH normal - Levothyroxine 50 mcg daily (11) DVT Prophylaxis Status: Acute Plan: Heparin drip discontinued due to anemia/ suspected active bleeding (12) Nutrition, metabolism, and development symptoms ICD Codes: R63.8 - Other symptoms and signs concerning food and fluid intake Status: Acute Plan: Regular diet 1L free water restriction Phosphate restriction 900 mg/day for hyperphosphatemia Hyponatremia, hyperkalemia Receiving dialysis per nephrology Acute renal failure with CKD, monitor renal function Protonix IV 40 mg daily Problem Qualifiers (1) Acute on chronic kidney failure: Qualified Codes: N17.9 - Acute kidney failure, unspecified; N18.9 - Chronic kidney disease, unspecified (2) Anemia: Qualified Codes: D64.9 - Anemia, unspecified (3) DM2 (diabetes mellitus, type 2): (4) HTN (hypertension): Qualified Codes: I10 - Essential (primary) hypertension (5) Hypothyroidism: Qualified Codes: E03.9 - Hypothyroidism, unspecified En Borrero MD, R3 Apr 28, 2017 07:55
[2017-04-28] MEDS: PANTOPRAZOLE SODIUM 40 MG VIAL IV PUSH SCH (08:06)
[2017-04-28] MEDS: ASPIRIN 81 MG CHEW TAB CHEW SCH (08:07)
[2017-04-28] MEDS: SODIUM CHLORIDE 0.9% FLUSH 10 ML FLUSH IV FLUSH SCH ×4 (08:07→20:42)
[2017-04-28] MEDS: CALCITRIOL 0.25 MCG CAP PO SCH (08:07)
[2017-04-28] MEDS: BUMETANIDE INJ 1 MG/4 ML VIAL IV PUSH SCH ×2 (08:07→20:41)
[2017-04-28] MEDS: CARVEDILOL 3.125 MG TAB PO SCH ×2 (08:07→20:41)
[2017-04-28] MEDS: CYANOCOBALAMIN 1,000 MCG TAB PO SCH (08:07)
[2017-04-28] MEDS ORDERED: HEPARIN-NS/PF INJ 500 ML ONE (08:38)
[2017-04-28] MEDS ORDERED: HEPARIN SODIUM - IV 10,000 UNITS/10 ML VIAL ONE (08:38)
[2017-04-28] MEDS ORDERED: NITROGLYCERIN INJ 5 ML ONE (08:38)
[2017-04-28] MEDS ORDERED: MIDAZOLAM HCL 2 MG/2 ML VIAL ONE (08:38)
[2017-04-28] MEDS: CALCIUM ACETATE 667 MG CAP PO SCH ×2 (09:00→20:40)
[2017-04-28] MEDS: DOCUSATE SODIUM 50 MG/SENNA 8.6 MG TAB PO SCH ×2 (09:00→20:41)
[2017-04-28] MEDS: methylPREDNISolone SOD SUCC 125 MG/2 ML VIAL IV PUSH SCH ×2 (09:00→20:41)
[2017-04-28] MEDS ORDERED: TICAGRELOR 90 MG TAB PO ONE (11:30)
--- NOTE | 2017-04-28 12:23 | CATHPROC ---
[employer] HIS Report Study Information Study Number Admission Scheduled Start Study Start [id number] Apr 21 2017 6:37AM 04/27/2017 Apr 28 2017 8:01AM [place] [facility] Cardiac Catheterization Admit Source Facility Department Other [facility] - Leak Detector Physician and Clinical Staff Initial Hemanth Mckeon Hourly Sign Language Interpreter Valerie Bardales BSRN Hourly Sign Language Interpreter Gabi Sherman,REBEKA Recorder Callie Linda,RT(R) (BS) Scrub Josey RussoRT(R) Procedures Performed Procedure Location (Site) Vessel Name Coronary Angiograms LCA Left Coronary Drug Eluting Inflatio CIRC Dist CIRC Drug Eluting Inflatio CIRC Mid CIRC Drug Eluting Inflatio OM1 Prox CIRC L Heart Cath PTCA CIRC Dist CIRC PTCA CIRC Mid CIRC PTCA OM1 Prox CIRC Wire insertion Fem Art (left) Femoral Art Equipment Time Installation & Maintenance Executive Description Size Mfg Part Number Used/Scraped [id number] 09:44 [employer] WIRE, ASAHI GRANDSLAM 300CM 300CM Used *[id number] 64539-74 09:52 [employer] WIRE, ASAHI GRANDSLAM 300CM 300CM Used *[id number] 81701-69 10:15 [employer] WIRE, ASAHI PROWATER 180CM 180CM Used *[id number] 63988-79 09:44 [employer] WIRE, ASAHI PROWATER 180CM 180CM Used *[id number] WIRE, BALANCE MIDDLEWEIGHT [id number] 09:14 [employer] 300CM Used 300CM *[id number] 09:12 ARGON/MAXXIM BAND BAG W/RUBBERBAND * Used *[id number] [id number] 09:12 ARGON/MAXXIM BAND BAG W/RUBBERBAND * Used *[id number] TRANSDUCER, TRUWAVE [id number] 08:06 GRANT FIGUEROA * Used W/STOCKCOCK *[id number] INTRODUCER SET, 08:54 [employer] FR 5 [id number] *[id number] Used MICROPUNCTURE, STIFFENED INTRODUCER SET, 08:54 [employer] FR 5 [id number] *[id number] Used MICROPUNCTURE, STIFFENED INTRODUCER SET, 08:55 [employer] FR 5 [id number] *[id number] Used MICROPUNCTURE, STIFFENED [id number] 08:06 [employer] INDUSTRIES PACK, CCL CUSTOM * Used *[id number] BALLOON, 1.25 X 15MM [id number] 09:40 MEDTRONIC 15MM Used SPRINTER LEGEND OTW *[id number] 09:54 [employer] BALLOON, 2.0 X 12MM EUPHORA 12MM Used *[id number] BALLOON, 2.0 X 12MM NC [id number] 10:09 MEDTRONIC 12MM Used EUPHORA *[id number] [id number] 10:12 [employer]TR[employer] BALLOON, 2.0 X 15MM EUPHORA 15MM Used *[id number] BALLOON, 2.5 X 12MM NC [id number] 11:35 MEDTRONIC 12MM Used EUPHORA *[id number] BALLOON, 2.5 X 15MM NC [id number] 11:10 MEDTRONIC 15MM Used EUPHORA *[id number] BALLOON, 2.5 X 6MM NC [id number] 11:47 MEDTRONIC 6MM Used EUPHORA *[id number] 10:29 MEDTRONIC STENT, 2.25 15MM MAMTA 2.25 15MM [id number] Used [id number] 11:26 MEDTR[employer] STENT, 2.25 18MM MAMTA 2.25 18MM Used *[id number] 10:50 MEDTR[employer]IC STENT, 2.5 22MM MAMTA 2.5 22MM [id number] Used [id number] 09:18 MEDTRONIC/AVE EBU 3.5 Z2 GUIDE CATHETER FR 6 Used *[id number] [id number] 09:58 [employer] MEDICAL 30 JORDYN INDEFLATOR Used *[id number] [id number] 08:06 [employer] MEDICAL SHEATH, FR6.5 PRELUDE 11CM FR 6.5 038ACT Used *[id number] [id number] 08:06 [employer] MEDICAL WIRE, 3MMJ .035 180CM 180CM Used *[id number] 08:06 NAMIC MANIFOLD, 4 PORT * Used *[id number] 08:06 NYCOMED OMNIPAQUE, 350 MG, 150ML 150ML [id number] Used [id number] 08:06 ALVA MEDICAL BLANKET,WARM AIR CCL * Used *[id number] 09:10 TERUMO MEDICAL SHEATH, FR6 TERUMO (10CM) FR 6 Used *[id number] 09:19 TERUMO MEDICAL SHEATH, FR6 TERUMO (10CM) FR 6 Used *5472750 10:58 [employer] CATHETER, FR6 GUIDELINER FR 6 5571 *[id number] Used Equipment Model, Serial, Lot Number and Expiration Data Description Model Number Serial Number Lot Number Expiration Date STENT, 2.25 15MM MAMTA [id number] 02-22-2019 STENT, 2.5 22MM MAMTA [id number] 01-12-2019 History: Current Medications Medication Dosage/Unit Route Frequency Last Date/Time Taken ASA CARVEDILOL LIPITOR Synthroid History: Allergies Allergy Reaction Sulfa (Sulfonamide Antibiotics) RASH sulfamethoxazole Rash trimethoprim Rash History: Risk Factors Family History of Hypertension Dyslipidemia Previous [place] Previous Heart Failure Premature CAD Yes Yes No No Yes Prior Valve Prior PCI Prior CABG Surgery No No No Cerebrovascular Peripheral Artery Chronic Lung On Dialysis Diabetes Diabetes Therapy Disease Disease Disease Yes No Yes Yes Yes Insulin History: Symptoms/Diagnosis Selection Items Chest pain History: Stress Tests Stress or Imaging Studies Performed No History: Arrhythmias Selection Items Atrial fibrillation History: Other Disease Selection Items COPD Renal Failure-Dialysis History: Other Current Smoker Method Quit Packs a Day Years Used Pack Years No Cigarettes 1 Years Ago 1 45 45 Labs Hgb (g/dl) Hct (%) WBC (l/cumm) Platelets (thousands) 11.60-17.00 35.00-51.00 4.00-11.00 150.00-450.00 11.0 31.9 17.2 176 Glucose (mg/dl) Creatinine (mg/dl) 74.00-106.00 0.50-1.30 220 4.6 Na (meq/l) K (meq/l) 136.00-145.00 3.50-5.10 134 4.2 INR (PTT:PT) 0.90-1.10 1 CPK-MB (ng/ML) 0.50-3.60 Not Drawn Medication Medication Total Dose (Bolus/Oral) Medication Total Dosage/Unit 1% XYLOCAINE 20 mL BRILLINTA 180 mg FENTANYL 150 mcg HEPARIN 8000 units OXYGEN 2 l/min Medications (Bolus/Oral) Medication Time Given Dosage/Unit Administered By Reason OXYGEN 04/28/2017 9:08:50 AM 2 l/min Valerie Bardales 2 l/min OXYGEN given in lab by Valerie Bardales BSRN via Nasal. FENTANYL 04/28/2017 9:10:00 AM 50 mcg Gabi Sherman 50 mcg FENTANYL given in lab by Gabi Sherman RN via Peripheral IV. 1% XYLOCAINE 04/28/2017 9:13:49 AM 20 mL Hemanth Cole 20 mL 1% XYLOCAINE given in lab by Hemanth Cole in Left Groin via Subcutaneous. HEPARIN 04/28/2017 9:36:38 AM 5000 units Gabi Sherman 5000 units HEPARIN given in lab by Gabi Sherman RN in Left Forearm via Peripheral IV. 04/28/2017 10:37:20 HEPARIN 2000 units Gabi Sherman AM 2000 units HEPARIN given in lab by Gabi Sherman RN via Peripheral IV. 04/28/2017 11:05:28 FENTANYL 50 mcg Valerie Bardales AM 50 mcg FENTANYL given in lab by Valerie Bardales BSRN in Left Forearm via Peripheral IV. 04/28/2017 11:38:41 FENTANYL 50 mcg Gabi Sherman AM 50 mcg FENTANYL given in lab by Gabi Sherman RN via Peripheral IV. 04/28/2017 11:47:47 HEPARIN 1000 units Gabi Sherman AM 1000 units HEPARIN given in lab by Gabi Sherman RN via Peripheral IV. 04/28/2017 12:00:13 BRILLINTA 180 mg Gabi Sherman PM 180 mg BRILLINTA given in lab by Gabi Shermna RN in Per mouth via Oral. Medication (Drip) Medication Time Given Dosage/Unit Concentration/Unit Diluent (ml) Solution IV Solutions 04/28/2017 8:20:39 AM 0 mL (IV) 500 NaCl .9 IV Solutions given in lab by Gabi Sherman RN in Left Forearm via Peripheral IV. Pump/Drip Flow = 20 ml/hr using NaCl .9. Initial Case Assessment Cardiovascular HR Rhythm NIBP Chest Pain 67 reg 144/72 0 Edema Present Skin color Skin None Normal Warm Dry Circulatory - Right Pulses Dorsalis Pedis Femoral 1 1 Scale (0,1,2,3,4,d) Circulatory - Left Pulses Dorsalis Pedis Femoral 1 1 Scale (0,1,2,3,4,d) Circulatory - Lower Extremities Color Lower Right Color Lower Left Normal Normal Neurological State Oriented to time-place- Alert Moves all extremities person Respiration - General Respiration Rate SpO2 (%) (B/min) 13 90 Final Case Assessment Cardiovascular HR Rhythm NIBP Chest Pain 65 reg 150/69 0 Edema Present Skin color Skin None Normal Warm Dry Circulatory - Right Pulses Dorsalis Pedis Femoral 1 1 Scale (0,1,2,3,4,d) Circulatory - Left Pulses Dorsalis Pedis Femoral 1 1 Scale (0,1,2,3,4,d) Circulatory - Lower Extremities Color Lower Right Color Lower Left Normal Normal Neurological State Oriented to time-place- Alert Moves all extremities person Respiration - General Respiration Rate SpO2 (%) O2 (lpm) (B/min) 11 96 4 Chronological Log Time Study Chronological Log 8:20:14 Patient arrived via Bed. 8:20:14 Patient Name, D.O.B, / Armband Verified By R.N. 8:20:15 Consent signed by the physician and the patient and verified by the Leak Detector staff. 8:20:16 Pre-op and post- op instructions given; patient acknowledges understanding of instructions. 8:20:18 Verbal Stimulation=2 Physical Stimulation=2 Airway=2 Respiration=2 TOTAL=8. (0=absent, 1=li mited, 2=present) 8:20:19 Presedation assessment performed by Leak Detector RN. 8:20:20 Disposable Defibrillator Pads Placed On Patient. 8:20:31 Patient has been NPO for More than 6Hrs. 8:20:32 Skin Breakdown right side bruising 8:20:35 Patient Warmer Placed on the Table. 8:20:37 Paula Prominences Protected 8:20:38 A # 20 IV was noted in the Forearm (left). Grade = 0 IV Solutions given in lab by Gabi Sherman, RN in Left Forearm via Peripheral IV. Pump/Drip F low = 20 ml/hr using 8:20:39 NaCl .9. 8:20:40 History and physical on the chart or being dictated. Assessment: Initial Case, HR=67 BPM, Rhythm=reg, IBAG=839/72 mmhg, Chest Pain=0, Edema=None, Col or=Normal, Skin = Warm, Dry Right Pulses: Cornelius Ped=1, Femoral=1 Left Pulses: Cornelius Ped=1, Femoral=1 8:20:41 Lower Right Extremities: Color=Normal Lower Left Extremities: Color=Normal Neurological: State=Alert, Ox3, VICK Respiration: Resp=13 B/min, SpO2=90 % Vitals capture started with the following parameters, Patient=Adult, Interval=5 min, Initial Pre zitmq=682 mmHg, 8:30:30 Deflation Rate=5 mmHg, Cuff placed on Right Arm 8:31:11 HR=70 bpm, VWPI=193/72 mmhg, SpO2=91.0 %, Resp=13 B/min, Pain=0, Shiva=10, Hlae=2 8:36:10 HR=66 bpm, DXOH=507/74 mmhg, SpO2=91.0 %, Resp=15 B/min, Pain=0, Shiva=10, Hale=2 8:37:19 Left groin prepped with 2% chlorhexidine, and draped after a 3 min. waiting time. 8:38:49 Reference ECG taken 8:41:13 HR=62 bpm, ROQI=759/77 mmhg, SpO2=92.0 %, Resp=20 B/min, Pain=0, Shiva=10, Hale=2 8:43:50 Moving patient to Lab 5. X-ray is not working properly in Lab 4. 8:44:23 Vitals capture stopped. Vitals capture started with the following parameters, Patient=Adult, Interval=5 min, Initial Pre uqclc=834 mmHg, 8:57:19 Deflation Rate=5 mmHg, Cuff placed on Right Arm 8:57:23 Reference ECG taken 8:57:26 Left groin prepped with 2% chlorhexidine, and draped after a 3 min. waiting time. 8:58:02 HR=64 bpm, GHBU=056/69 mmhg, SpO2=95.0 %, Resp=13 B/min, Pain=0, Shiva=10, Hale=2 9:02:59 HR=64 bpm, RKTU=158/76 mmhg, SpO2=96.0 %, Resp=18 B/min, Pain=0, Shiva=10, Hale=2 9:05:26 Pressure channel 1 zeroed. 9:06:31 MD arrived. 9:08:00 HR=61 bpm, LBDA=623/70 mmhg, SpO2=96.0 %, Resp=17 B/min, Pain=0, Shiva=10, Hale=2 9:08:50 2 l/min OXYGEN given in lab by Valerie Bardales BSRN via Nasal. Time Out. Correct patient, correct procedure, correct physician, power injector not loaded with contrast with surgical 9:09:36 team present. Time Out Concurred by MD and individual staff in procedure. 9:10:00 50 mcg FENTANYL given in lab by Gabi Sherman, RN via Peripheral IV. 9:10:00 Case Start 9:13:32 HR=62 bpm, KLFF=156/80 mmhg, SpO2=96.0 %, Resp=16 B/min, Pain=0, Shiva=10, Hale=2 9:13:49 20 mL 1% XYLOCAINE given in lab by Hemanth Cole in Left Groin via Subcutaneous. 9:18:03 HR=63 bpm, GWUS=430/70 mmhg, SpO2=95.0 %, Resp=23 B/min, Pain=0, Shiva=10, Hale=2 9:19:01 Access site was Left Femoral Vein. 9:19:20 A SHEATH, FR6 TERUMO (10CM) FR 6 was advanced into the Fem Vein (left) using the Percutaneou s technique. 9:22:59 HR=61 bpm, EQWU=063/66 mmhg, SpO2=95.0 %, Resp=19 B/min, Pain=0, Shiva=10, Hale=2 9:27:56 HR=64 bpm, HXFJ=181/77 mmhg, SpO2=95.0 %, Resp=15 B/min, Pain=0, Shiva=10, Hale=2 9:29:34 Access site was Left Femoral Artery. 9:29:39 A SHEATH, FR6 TERUMO (10CM) FR 6 was advanced into the Fem Art (right) using the Percutaneou s technique. 9:33:00 HR=61 bpm, TJYP=354/67 mmhg, SpO2=95.0 %, Resp=13 B/min, Pain=0, Shiva=10, Hale=2 A EBU 3.5 Z2 GUIDE CATHETER FR 6 was advanced over a wire. OMNIPAQUE, 350 MG, 150ML 150ML was us ed for 9:34:48 injections. 9:36:38 5000 units HEPARIN given in lab by Gabi Sherman, RN in Left Forearm via Peripheral IV. Recorded Pressure: Ao, HR=63, Condition=Condition 1 9:37:40 (Aorta) Ao 156/57/96 9:37:57 HR=59 bpm, UWEE=944/70 mmhg, SpO2=95.0 %, Resp=13 B/min, Pain=0, Shiva=10, Hale=2 9:39:32 A WIRE, BALANCE MIDDLEWEIGHT 300CM 300CM was inserted via Fem Art (left). A BALLOON, 1.25 X 15MM SPRINTER LEGEND OTW 15MM was inserted over WIRE, BALANCE MIDDLEWEIGHT 30 0CM 9:42:59 300CM via the Fem Art (left). 9:43:04 HR=64 bpm, FNDX=167/59 mmhg, SpO2=96.0 %, Resp=14 B/min, Pain=0, Shiva=10, Hale=2 9:48:01 HR=66 bpm, VEHL=083/63 mmhg, SpO2=96.0 %, Resp=14 B/min, Pain=0, Hsiva=10, Hale=2 9:52:18 Activated Clotting Time Drawn 9:53:04 HR=63 bpm, SVQA=474/62 mmhg, SpO2=95.0 %, Resp=11 B/min, Pain=0, Shiva=10, Hale=2 9:55:15 A WIRE, ASAHI GRANDSLAM 300CM 300CM was inserted via Fem Art (left). A BALLOON, 1.25 X 15MM SPRINTER LEGEND OTW 15MM over a WIRE, ASAHI GRANDSLAM 300CM 300CM in the CIRC 9:57:24 Mid was inflated using a 30 JORDYN INDEFLATOR at 8 jordyn for 15 sec. 9:58:03 HR=65 bpm, OXAI=174/70 mmhg, SpO2=95.0 %, Resp=13 B/min, Pain=0, Shiva=10, Hale=2 9:58:04 ACT (Normal Range 90-180) = 322 9:59:07 Balloon Removed A BALLOON, 2.0 X 12MM EUPHORA 12MM was inserted over WIRE, ASAHI GRANDSLAM 300CM 300CM via the Fem Art 10:00:29 (left). A BALLOON, 2.0 X 12MM EUPHORA 12MM over a WIRE, ASAHI GRANDSLAM 300CM 300CM in the CIRC Mid was 10:02:56 inflated using a 30 JORDYN INDEFLATOR at 12 jordyn for 18 sec. 10:02:58 HR=67 bpm, OKFB=173/69 mmhg, SpO2=95.0 %, Resp=14 B/min, Pain=0, Shiva=10, Hale=2 10:07:59 Balloon Removed 10:08:03 HR=63 bpm, DSKW=354/70 mmhg, SpO2=96.0 %, Resp=13 B/min, Pain=0, Shiva=10, Hale=2 A BALLOON, 2.0 X 12MM NC EUPHORA 12MM was inserted over WIRE, ASAHI GRANDSLAM 300CM 300CM via t he Fem 10:09:46 Art (left). A BALLOON, 2.0 X 12MM NC EUPHORA 12MM over a WIRE, ASAHI GRANDSLAM 300CM 300CM in the CIRC Mid was 10:10:17 inflated using a 30 JORDYN INDEFLATOR at 14 jordyn for 30 sec. 10:12:03 Balloon Removed A BALLOON, 2.0 X 15MM EUPHORA 15MM was inserted over WIRE, ASAHI GRANDSLAM 300CM 300CM via the Fem Art 10:12:37 (left). 10:13:04 HR=65 bpm, JBQO=021/67 mmhg, SpO2=96.0 %, Resp=12 B/min, Pain=0, Shiva=10, Hale=2 10:14:43 Balloon Removed 10:15:58 A WIRE, ASAHI PROWATER 180CM 180CM was inserted via Fem Art (left). 10:18:07 HR=63 bpm, JITC=440/66 mmhg, SpO2=94.0 %, Resp=14 B/min, Pain=0, Shiva=10, Hale=2 10:18:48 Wire removed prowater A BALLOON, 1.25 X 15MM SPRINTER LEGEND OTW 15MM was inserted over WIRE, ASAHI GRANDSLAM 300CM 3 00CM 10:19:44 via the Fem Art (left). A BALLOON, 1.25 X 15MM SPRINTER LEGEND OTW 15MM over a WIRE, ASAHI GRANDSLAM 300CM 300CM in the CIRC 10:22:49 Mid was inflated using a 30 JORDYN INDEFLATOR at 12 jordyn for 15 sec. 10:23:04 HR=61 bpm, VLHD=183/75 mmhg, SpO2=97.0 %, Resp=13 B/min, Pain=0, Shiva=10, Hale=2 10:24:51 Balloon Removed A BALLOON, 2.0 X 15MM EUPHORA 15MM was inserted over WIRE, ASAHI GRANDSLAM 300CM 300CM via the Fem Art 10:25:28 (left). 10:28:05 HR=63 bpm, CWJC=814/71 mmhg, SpO2=95.0 %, Resp=13 B/min, Pain=0, Shiva=10, Hale=2 A BALLOON, 2.0 X 15MM EUPHORA 15MM over a WIRE, ASAHI GRANDSLAM 300CM 300CM in the CIRC Dist wa s 10:28:09 inflated using a 30 JORDYN INDEFLATOR at 8 jordyn for 12 sec. A BALLOON, 2.0 X 15MM EUPHORA 15MM over a WIRE, ASAHI GRANDSLAM 300CM 300CM in the CIRC Dist wa s 10:28:26 inflated using a 30 JORDYN INDEFLATOR at 14 jordyn for 11 sec. A BALLOON, 2.0 X 15MM EUPHORA 15MM over a WIRE, ASAHI GRANDSLAM 300CM 300CM in the CIRC Dist wa s 10:29:04 inflated using a 30 JORDYN INDEFLATOR at 20 jordyn for 12 sec. 10:30:07 Balloon Removed 10:31:25 Activated Clotting Time Drawn A STENT, 2.25 15MM MAMTA 2.25 15MM was advanced through a EBU 3.5 Z2 GUIDE CATHETER FR 6 over a WIRE, 10:32:22 ASAHI GRANDSLAM 300CM 300CM. 10:33:08 HR=65 bpm, KVEU=398/67 mmhg, SpO2=95.0 %, Resp=20 B/min, Pain=0, Shiva=10, Hale=2 10:36:31 ACT (Normal Range 90-180) = 257 10:37:20 2000 units HEPARIN given in lab by Gabi Sherman, REBEKA via Peripheral IV. 10:38:07 HR=66 bpm, RPZK=890/71 mmhg, SpO2=93.0 %, Resp=5 B/min, Pain=0, Shiva=10, Hale=2 A STENT, 2.25 15MM MAMTA 2.25 15MM was deployed using a 30 JORDYN INDEFLATOR at 12 atmospheres for 20 seconds 10:38:41 in the CIRC Dist. 10:38:56 Re-inflated the stent balloon in the CIRC Dist to 10 JORDYN for 15 seconds. 10:40:58 Delivery device removed 10:43:06 HR=64 bpm, OAUX=301/68 mmhg, SpO2=95 %, Resp=14 B/min, Pain=0, Shiva=10, Hale=2 10:45:20 The LCA was injected and visualized at various angles. OMNIPAQUE, 350 MG, 150ML 150ML used . 10:48:08 HR=68 bpm, ZFYF=322/74 mmhg, SpO2=95 %, Resp=7 B/min, Pain=0, Shiva=10, Hale=2 A STENT, 2.5 22MM MAMTA 2.5 22MM was advanced through a EBU 3.5 Z2 GUIDE CATHETER FR 6 over a WI RE, ASAHI 10:50:34 GRANDSLAM 300CM 300CM. 10:53:09 HR=66 bpm, XHXJ=816/74 mmhg, SpO2=95 %, Resp=8 B/min, Pain=0, Shiva=10, Hale=2 10:57:31 Stent not deployed. Stent removed and intact. 10:58:08 HR=65 bpm, ZZWZ=743/67 mmhg, SpO2=91.0 %, Resp=0 B/min, Pain=0, Shiva=10, Hale=2 A CATHETER, FR6 GUIDELINER FR 6 was advanced over a wire. OMNIPAQUE, 350 MG, 150ML 150ML was us ed for 10:58:14 injections. A STENT, 2.5 22MM MAMTA 2.5 22MM was advanced through a CATHETER, FR6 GUIDELINER FR 6 over a WIR E, ASAHI 11:00:41 GRANDSLAM 300CM 300CM. 11:03:09 HR=65 bpm, RAZA=930/64 mmhg, SpO2=90.0 %, Resp=0 B/min, Pain=0, Shiva=10, Hale=2 11:05:28 50 mcg FENTANYL given in lab by Valerie Bardales BSRN in Left Forearm via Peripheral IV. A STENT, 2.5 22MM MAMTA 2.5 22MM was deployed using a 30 JORDYN INDEFLATOR at 12 atmospheres for 18 seconds in 11:06:25 the CIRC Mid. 11:06:57 Delivery device removed 11:08:12 HR=61 bpm, WOQC=624/67 mmhg, SpO2=93.0 %, Resp=13 B/min, Pain=0, Shiva=10, Hale=2 11:10:19 Activated Clotting Time Drawn A BALLOON, 2.5 X 15MM NC EUPHORA 15MM was inserted over WIRE, ASAHI GRANDSLAM 300CM 300CM via t he Fem 11:11:33 Art (left). 11:13:11 HR=64 bpm, LZYW=184/67 mmhg, SpO2=96.0 %, Resp=10 B/min, Pain=0, Shiva=10, Hale=2 A BALLOON, 2.5 X 15MM NC EUPHORA 15MM over a WIRE, ASAHI GRANDSLAM 300CM 300CM in the CIRC Mid was 11:13:46 inflated using a 30 JORDYN INDEFLATOR at 12 jordyn for 16 sec. A BALLOON, 2.5 X 15MM NC EUPHORA 15MM over a WIRE, ASAHI GRANDSLAM 300CM 300CM in the CIRC Mid was 11:14:14 inflated using a 30 JORDYN INDEFLATOR at 14 jordyn for 14 sec. A BALLOON, 2.5 X 15MM NC EUPHORA 15MM over a WIRE, ASAHI GRANDSLAM 300CM 300CM in the CIRC Mid was 11:14:31 inflated using a 30 JORDYN INDEFLATOR at 14 jordyn for 10 sec. A BALLOON, 2.5 X 15MM NC EUPHORA 15MM over a WIRE, ASAHI GRANDSLAM 300CM 300CM in the CIRC Mid was 11:15:11 inflated using a 30 JORDYN INDEFLATOR at 16 jordyn for 13 sec. 11:15:34 Balloon Removed. 11:15:45 ACT (Normal Range 90-180) = 290 11:18:12 HR=65 bpm, HZNJ=927/63 mmhg, SpO2=96.0 %, Resp=11 B/min, Pain=0, Shiva=10, Hale=2 11:22:52 A WIRE, ASAHI PROWATER 180CM 180CM was inserted via Fem Art (left). A BALLOON, 2.0 X 15MM EUPHORA 15MM was inserted over WIRE, ASAHI PROWATER 180CM 180CM via the F em Art 11:23:02 (left). 11:23:09 HR=62 bpm, QMKM=015/65 mmhg, SpO2=97.0 %, Resp=11 B/min, Pain=0, Shiva=10, Hale=2 A BALLOON, 2.0 X 15MM EUPHORA 15MM over a WIRE, ASAHI PROWATER 180CM 180CM in the OM1 Prox was inflated 11:25:01 using a 30 JORDYN INDEFLATOR at 12 jordyn for 18 sec. 11:27:05 Activated Clotting Time Drawn A STENT, 2.25 18MM MAMTA 2.25 18MM was advanced through a EBU 3.5 Z2 GUIDE CATHETER FR 6 over a WIRE, 11:27:28 ASAHI PROWATER 180CM 180CM. 11:28:08 HR=64 bpm, XKIT=055/67 mmhg, SpO2=96.0 %, Resp=13 B/min, Pain=0, Shiva=10, Hale=2 11:32:00 ACT (Normal Range 90-180) = 281 A STENT, 2.25 18MM MAMTA 2.25 18MM was deployed using a 30 JORDYN INDEFLATOR at 16 atmospheres for 22 seconds 11:32:32 in the OM1 Prox. 11:33:11 HR=67 bpm, GTDS=199/66 mmhg, SpO2=97.0 %, Resp=10 B/min, Pain=0, Shiva=10, Hale=2 A STENT, 2.25 18MM MAMTA 2.25 18MM was deployed using a 30 JORDYN INDEFLATOR at 18 atmospheres for 10 seconds 11:33:21 in the OM1 Prox. 11:33:53 Delivery device removed A BALLOON, 2.5 X 12MM NC EUPHORA 12MM was inserted over WIRE, ASAHI PROWATER 180CM 180CM via th e OM1 11:35:08 Prox. A BALLOON, 2.5 X 12MM NC EUPHORA 12MM over a WIRE, ASAHI PROWATER 180CM 180CM in the OM1 Prox w as 11:37:21 inflated using a 30 JORDYN INDEFLATOR at 12 jordyn for 14 sec. 11:38:08 HR=62 bpm, RGDP=534/78 mmhg, SpO2=95 %, Resp=0 B/min, Pain=0, Shiva=10, Hale=2 A BALLOON, 2.5 X 12MM NC EUPHORA 12MM over a WIRE, ASAHI PROWATER 180CM 180CM in the OM1 Prox w as 11:38:20 inflated using a 30 JORDYN INDEFLATOR at 20 jordyn for 30 sec. 11:38:41 50 mcg FENTANYL given in lab by Gabi Sherman, RN via Peripheral IV. A BALLOON, 2.5 X 12MM NC EUPHORA 12MM over a WIRE, ASAHI PROWATER 180CM 180CM in the OM1 Prox w as 11:39:28 inflated using a 30 JORDYN INDEFLATOR at 20 jordyn for 20 sec. A BALLOON, 2.5 X 12MM NC EUPHORA 12MM over a WIRE, ASAHI PROWATER 180CM 180CM in the OM1 Prox w as 11:41:21 inflated using a 30 JORDYN INDEFLATOR at 20 jordyn for 16 sec. 11:43:09 HR=63 bpm, DYNN=750/68 mmhg, SpO2=96.0 %, Resp=8 B/min, Pain=0, Sihva=10, Hale=2 A BALLOON, 2.5 X 12MM NC EUPHORA 12MM over a WIRE, ASAHI PROWATER 180CM 180CM in the OM1 Prox w as 11:43:57 inflated using a 30 JORDYN INDEFLATOR at 20 jordyn for 10 sec. 11:44:12 Balloon Removed. A BALLOON, 2.5 X 6MM NC EUPHORA 6MM was inserted over WIRE, ASAHI PROWATER 180CM 180CM via the OM1 11:47:08 Prox. 11:47:47 1000 units HEPARIN given in lab by Gabi Sherman, RN via Peripheral IV. 11:48:08 HR=64 bpm, HEZO=248/74 mmhg, SpO2=95.0 %, Resp=11 B/min, Pain=0, Shiva=10, Hale=2 A BALLOON, 2.5 X 6MM NC EUPHORA 6MM over a WIRE, ASAHI PROWATER 180CM 180CM in the OM1 Prox was 11:48:14 inflated using a 30 JORDYN INDEFLATOR at 20 jordyn for 15 sec. A BALLOON, 2.5 X 6MM NC EUPHORA 6MM over a WIRE, ASAHI PROWATER 180CM 180CM in the OM1 Prox was 11:48:53 inflated using a 30 JORDYN INDEFLATOR at 20 jordyn for 14 sec. A BALLOON, 2.5 X 6MM NC EUPHORA 6MM over a WIRE, ASAHI PROWATER 180CM 180CM in the OM1 Prox was 11:50:06 inflated using a 30 JORDYN INDEFLATOR at 20 jordyn for 10 sec. A BALLOON, 2.5 X 6MM NC EUPHORA 6MM over a WIRE, ASAHI PROWATER 180CM 180CM in the OM1 Prox was 11:50:21 inflated using a 30 JORDYN INDEFLATOR at 20 jordyn for 10 sec. 11:50:48 Balloon Removed. 11:51:30 The LCA was injected and visualized at various angles. OMNIPAQUE, 350 MG, 150ML 150ML used . 11:52:33 guideliner Catheter was removed 11:53:13 HR=67 bpm, JFOH=010/69 mmhg, SpO2=95.0 %, Resp=11 B/min, Pain=0, Shiva=10, Hale=2 11:53:40 Wires removed 11:53:46 The LCA was injected and visualized at various angles. OMNIPAQUE, 350 MG, 150ML 150ML used . Assessment: Final Case, HR=65 BPM, Rhythm=reg, UBIK=933/69 mmhg, Chest Pain=0, Edema=None, Col or=Normal, Skin = Warm, Dry Right Pulses: Cornelius Ped=1, Femoral=1 Left Pulses: Cornelius Ped=1, Femoral=1 11:56:05 Lower Right Extremities: Color=Normal Lower Left Extremities: Color=Normal Neurological: State=Alert, Ox3, VICK Respiration: Resp=11 B/min, SpO2=96 %, O2=4 lpm 11:58:16 HR=68 bpm, PUVT=783/72 mmhg, SpO2=97.0 %, Resp=10 B/min, Pain=0, Shiva=10, Hale=2 12:00:13 180 mg BRILLINTA given in lab by Gabi Sherman, RN in Per mouth via Oral. 12:01:40 Catheter(s) removed without difficulty 12:01:43 Case End 12:01:47 In the Fem Art (right) the SHEATH, FR6 TERUMO (10CM) FR [address] by Taz Russo, RT(R). 12:01:57 Sterile dressing applied to site 12:01:57 No case complications noted. 12:01:59 Cine recording checked. 12:02:00 Bedside Report will be given. 12:02:01 Implantable Device card placed in patient's chart. 12:02:04 Contrast Scanned 12:02:09 A Left Heart Cath was performed. 12:02:16 Clinical correlaton risk stratification. 12:03:15 HR=65 bpm, SDTG=402/68 mmhg, SpO2=97.0 %, Resp=12 B/min, Pain=0, Shiva=10, Hale=2 12:08:17 HR=66 bpm, WBLF=166/69 mmhg, SpO2=98.0 %, Resp=10 B/min, Pain=0, Shiva=10, Hale=2 12:10:06 Vitals capture stopped. 12:13:50 Patient moved to stretcher End Study - Contrast Media Used In Study Contrast Total Opened (mL) Total Used (mL) Total Wasted (mL) Omnipaque 175 175 0 End Study - Maximum Contrast Load Max Contrast Load (mL) 91.3 End Study - Radiation Exposure Fluoro Time (minutes) 49.5 End Study - Patient Disposition Complications Transferred To Interventional Outcome No Regular Bed successful
[2017-04-28] MEDS ORDERED: MISC INFORMATION XX ONE (12:30)
[2017-04-28] MEDS ORDERED: IOHEXOL 350 MG/ML 100 ML BTL (for Cath Lab) OTHER ONE (13:16)
[2017-04-28] MEDS ORDERED: NITROGLYCERIN-D5W 50 MG/250 ML 250 ML ONE (13:38)
--- NOTE | 2017-04-28 14:07 | HHI.NPPN ---
Subjective Renal Failure: Chronic, Acute, Stage IV Interval History Vascath was not functioning, therefore she did not have dialysis yesterday. Had cardiac catheterization today, however she did not get a PermCath placed. They are preparing to take her for Permcath. She will come to dialysis immediately after. Her urine output has improved. (Cris Telles) Review of Systems General Constitutional: Fatigue (Cris Telles) Respiratory Lungs: SOB (Cris Telles) Cardiovascular Cardiac: Edema, HAIR (Cris Telles) Objective Data Data Vital Signs Date Time Temp Pulse Resp B/P (MAP) Pulse Ox O2 Delivery O2 Flow Rate FiO2 04/28/17 10:56 96 Nasal Cannula 2.00 04/28/17 07:10 Room Air 04/28/17 06:03 75 04/28/17 04:49 98.5 69 147/68 (94) 90 04/28/17 04:00 70 04/28/17 03:00 73 04/28/17 02:00 72 04/28/17 01:15 97.0 70 186/84 (118) 94 04/28/17 01:00 72 04/28/17 00:00 80 04/27/17 23:19 77 04/27/17 22:00 80 04/27/17 21:51 73 04/27/17 20:30 96.9 78 183/85 (117) 94 04/27/17 20:05 95 Nasal Cannula 2.00 04/27/17 20:00 97.8 85 17 168/78 (108) 94 04/27/17 20:00 85 04/27/17 16:00 78 04/27/17 16:00 78 18 183/84 (117) 93 (Cris Telles) -: 04/28/17 0559 04/28/17 0559 Imaging Last 72 hours Impressions Abdomen/Pelvis CT 04/26/17 0917 Signed Impressions: Service Date/Time: Wednesday, April 26, 2017 11:16 - CONCLUSION: 1. There is a right inguinal and right lower quadrant abdominal wall hematoma measuring up to 8.8 cm. There is surrounding subcutaneous inflammatory changes which extend into the mons pubis region. 2. There is bilateral flank edema. 3. Nonacute findings include small left pleural effusion, severe atherosclerotic disease, and sigmoid diverticulosis. Keegan Santos MD Lower Extremity Ultrasound 04/26/17 0000 Signed Impressions: Service Date/Time: Wednesday, April 26, 2017 14:24 - CONCLUSION: Large groin hematoma. No evidence of pseudoaneurysm Keegan Cedeno MD Tubes & Lines: Vas-Cath, Adan (Cris Telles B. PARLIAMENTARY LIBRARIAN) Physical Exam General Appearance: Well Developed, Well Nourished, No Acute Distress, Comfortable (ElfegoCris B. [employer]LI[employer] LIBRARIAN) Eyes Eye Exam: Pupils Equal (ElfegoCris B. [employer] LIBRARIAN) Throat Throat Exam: Oral Mucosa Harding & Moist (ElfegoCris B. [employer]LI[employer]ENT[employer] LIBRARIAN) Neck Neck Exam: Neck Supple (ElfegoCris B. [employer]ARY LIBRARIAN) Pulmonary Resp Exam: No Distress, Crackles, Rhonchi, Sputum, Decreased Bases, Diminished Breath Sounds (ElfegoCris B. [employer] LIBRARIAN) Cardiology CV Exam: Regular, Normal Sinus Rhythm, Good Perfusion (ElfegoCris B. [employer]LI[employer]ENT[employer] LIBRARIAN) Gastrointestinal/Abdomen GI Exam: Soft, Non-Tender, Bowel Sounds Present GI Remarks RLQ ecchymosis (ElfegoCris B. [employer]LI[employer]ENT[employer] LIBRARIAN) Genitourinary Exam: Clear Urine (ElfegoCris B. PARLI[employer]ENTARY LIBRARIAN) Musculoskeletal MS Exam: Joints Intact, Normal Tone, Good Strength (ElfegoCris B. [employer] LIBRARIAN) Integumentary Skin Exam: Clear, Warm, Dry, Intact (ElfegoCris B. [employer] LIBRARIAN) Extremeties Extremities Exam: Pedal Pulses Palpable, Trace Edema, Pitting Edema (ElfegoCris B. [employer] LIBRARIAN) Neurologic Neuro Exam: Alert, Awake, Oriented, Speech Clear, Moving All Extremities (Cris Telles B. PARLI[employer]ENTARY LIBRARIAN) Psychiatric Psych Exam: Appropriate Responses (Cris Telles B. PARLIAMENTARY LIBRARIAN) Assessment/Plan Discussed Condition With: Patient Assessment Summary: LEEANN/Acute Renal Failure, [place] Hyperparathyroid, Proteinuria, Hypertension, Diabetes Mellitus, CKD Stage IV Electrolyte Assessment: Hypocalcemia Problem List: (1) Acute on chronic kidney failure ICD Codes: N17.9 - Acute kidney failure, unspecified; N18.9 - Chronic kidney disease, unspecified Status: Acute Plan: She has advanced renal disease, Creatinine 2.8 at baseline, CKD 4 Suspected underlying diabetic nephropathy, heavy proteinuria in the past All serologies normal; SPEP and urine immunofixation also normal LEEANN likely due to NSTEMI and decreased renal perfusion HD initiated on 04/22 Needs Permcath placed and dialysis today May repeat HD tomorrow, possibly convert to MWF beginning next week Repeat labs daily Off IVF Monitor urine output; she is incontinent but has been making more urine It remains to be seen if dialysis will be indefinite (2) NSTEMI (non-ST elevated myocardial infarction) ICD Codes: I21.4 - Non-ST elevation (NSTEMI) myocardial infarction Status: Acute Plan: Cardiology is following Off heparin gtt due to bleeding 2D echo: LVH, EF 45-50% s/p cardiac catheterization with multivessel disease; CABG cancelled s/p cath today, repeat on Monday (3) DM2 (diabetes mellitus, type 2) ICD Codes: E11.9 - Type 2 diabetes mellitus without complications Status: Chronic Plan: Insulin as needed to maintain glucose of 140-180 mg/dL while hospitalized (4) Metabolic bone disease ICD Codes: E88.9 - Metabolic disorder, unspecified; M90.80 - Osteopathy in diseases classified elsewhere, unspecified site Plan: Continue Calcium acetate Start calcitriol for secondary hyperparathyroidism (5) Hyperkalemia ICD Codes: E87.5 - Hyperkalemia; N18.9 - Chronic kidney disease, unspecified Status: Resolved Plan: Due to reduction in GFR and metabolic acidosis Improved with dialysis, monitor for recurrence (6) Metabolic acidosis ICD Codes: E87.2 - Acidosis Status: Acute Plan: Corrected Follow metabolic profile (7) COPD with acute exacerbation ICD Codes: J44.1 - Chronic obstructive pulmonary disease with (acute) exacerbation Plan: On nebulizers, oxygen She is also on Levaquin and solumedrol (8) Anemia ICD Codes: D64.9 - Anemia, unspecified Status: Acute Plan: Improved after [address] abd/pelvis confirmed hematoma, off anticoagulation, monitor (Cris Telles) Plan patient was seen and examined. Underwent cath, 170 ml of contrast injected, 3 stents placed. Dialysis today after vascath exchange. Patient may have reached ESRD, but she is non oliguric. (Fantasma Corral MD) Problem Qualifiers (1) Acute on chronic kidney failure: Qualified Codes: N17.9 - Acute kidney failure, unspecified; N18.9 - Chronic kidney disease, unspecified (2) DM2 (diabetes mellitus, type 2): (3) Anemia: Qualified Codes: D64.9 - Anemia, unspecified Cris Telles Apr 28, 2017 14:07 Fantasma Corral MD Apr 28, 2017 15:30
--- NOTE | 2017-04-28 14:22 | HHI.FPPN ---
Subjective Remarks Saw Ms Alicia right after her cardiac catheterization. she is doing well and will be scheduled to get a new line so she can get dialysis today to remove the dye from cath. Spoke to her and her daughter. Ms Alicia was still a bit sedated from her procedure but had no complaints of pain or problems. Objective Vitals Vital Signs Date Time Temp Pulse Resp B/P (MAP) Pulse Ox O2 Delivery O2 Flow Rate FiO2 04/28/17 10:56 96 Nasal Cannula 2.00 04/28/17 07:10 Room Air 04/28/17 06:03 75 04/28/17 04:49 98.5 69 147/68 (94) 90 04/28/17 04:00 70 04/28/17 03:00 73 04/28/17 02:00 72 04/28/17 01:15 97.0 70 186/84 (118) 94 04/28/17 01:00 72 04/28/17 00:00 80 04/27/17 23:19 77 04/27/17 22:00 80 04/27/17 21:51 73 04/27/17 20:30 96.9 78 183/85 (117) 94 04/27/17 20:05 95 Nasal Cannula 2.00 04/27/17 20:00 97.8 85 17 168/78 (108) 94 04/27/17 20:00 85 04/27/17 16:00 78 04/27/17 16:00 78 18 183/84 (117) 93 I/O 04/27/17 04/27/17 04/27/17 04/28/17 04/28/17 04/28/17 07:00 15:00 23:00 07:00 15:00 23:00 Intake Total 240 ml 480 ml 120 ml Output Total 300 ml 275 ml Balance 240 ml 180 ml -155 ml Intake Oral 240 ml 480 ml 120 ml Output Urine Total 300 ml 275 ml # Voids 2 6 1 # Bowel Movements 1 0 Result Diagram: 04/28/17 0559 04/28/17 0559 Objective Remarks General: Resting in bed in no acute distress with daughter at bedside. has some blood but no active bleeding at cath site left groin Skin: Warm and dry. bruising on left chest and other scattered bruises R ABD: Large hematoma from the right lower quadrant to pelvic area secondary to heart catheterization procedure. No pseudoaneurysm per CT. HEENT: Atraumatic, normocephalic with EOMI. MMM. No rhinorrhea. No JVD or LAD appreciated. CV: Regular rhythm with no MGR. 2+ pulses in all 4 extremities. Lungs:mild wheezing bilaterally with no CRW. Decreased air movement overall. No increased work of breathing. Abdomen: Soft, nontender, non-distended with positive bowel sounds. No masses appreciated. MSK: Not assessed at this exam- previously right third toe amputated, no swelling or tenderness Neuro: Awake, alert. Grossly normal CN. No peripheral motor/sensory defects appreciated. still sleepy but easily arousable to voice. Procedures Vascath 04/22/17 Initiate hemodialysis 04/22/17 A/P Assessment and Plan 61 yo female with NSTEMI, acute COPD exacerbation, acute renal failure with chronic renal disease requiring hemodialysis. 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 Cardiology and nephrology on board; receiving dialysis. Cath 04/24 with multivessel CAD; plans for 2 step catheterization with stenting to remove dye to preserve her kidneys. Discharge Planning Pending clinical course. Patient currently scheduled for cardiac catheterization with stenting on Monday and Monday in order to decrease contrast load as she is in acute renal failure. Patient to receive dialysis per nephrology today and after catheterization procedures. Problem List: (1) NSTEMI (non-ST elevated myocardial infarction) ICD Codes: I21.4 - Non-ST elevation (NSTEMI) myocardial infarction Status: Acute Plan: Impression: Troponin elevated at admission along with atypical chest pain. Non-specific ST-T wave changes on initial EKG's. ECHO with EF of 45-50% - Cardiology consulted -Heparin drip initiated per Cardiology -d/c due to hematoma and anemia - Continue aspirin 81 mg daily - Continue Lipitor 10 mg qHS - Continue Coreg 3.125 mg bid -s/p Catheterization per Dr. 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 Has proteinuria and oliguria with acute decrease in renal function. Her baseline creatinine is about 2.8, now with doubling of creatinine. Also with hyperkalemia and metabolic acidosis. Etiology includes chronic kidney disease with acute exacerbation possibly from poor cardiac output with NSTEMI. Renal ultrasound showing no obstruction, has stone that is non-obstructing Complement negative MIGUE negative Hepatitis profile negative - Nephrology consulted -S/P Dialysis 04/22 and 04/24; Patient scheduled for dialysis 04/28 post cardiac catheterization, needs new line for dialysis as her old line is not functioning -Will monitor labs and determine whether additional dialysis pending - ANCA, SPEP, UPEP pending -IVF per Nephrology -Continue to monitor urine output, electrolytes - Avoid nephrotoxic agents, contrast agents She is making more and more urine which is a great sign that she can hope for some recovery and be able to stop dialysis at some point (3) Anemia ICD Codes: D64.9 - Anemia, unspecified Status: Acute Plan: Impression: Hemoglobin 10.6 on admission and down trended to 7.0 on 04/26. MCV ~100. No leukopenia or thrombocytopenia. Significant renal disease likely is etiology of baseline low Hgb, however patient currently with groin hematoma s/p cardiac catheterization. -Patient transfused 2 units packed red blood cells 04/26, posttransfusion H/H 11.2/32.9 -Discussed with Cardiology; Heparin was stopped, but she needs it for procedures so may get more anemia -CT abdomen and pelvis 04/26: Right inguinal and right lower quadrant abdominal wall hematoma measuring 8.8 cm. Subcutaneous inflammatory changes which extend into the mons pubis region. Bilateral flank edema. Nonacute findings include small left pleural effusion, severe atherosclerotic disease, and sigmoid diverticulosis. No pseudoaneurysm. -Vascular surgery consulted -No surgical intervention needed at this time -Cleared from a vascular standpoint 04/27 (4) COPD (chronic obstructive pulmonary disease) ICD Codes: J44.9 - Chronic obstructive pulmonary disease, unspecified Status: Chronic Plan: History of COPD with recent upper respiratory symptoms and acute exacerbation, recently diagnosed with pneumonia while on cruise ship and was started on azithromycin. - IV Solumedrol 60 mg q12hrs started 04/21 - DuoNebs q6hrs scheduled - Levaquin empirically, renally dosed, started 04/22 Q48H - O2 supplementation with target O2 90% (5) Hyperkalemia ICD Codes: E87.5 - Hyperkalemia; N18.9 - Chronic kidney disease, unspecified Status: Resolved Plan: Hyperkalemia up to 6.0 with acute renal failure. Resolved with hemodialysis. - Continue management per nephrology (6) Hyponatremia ICD Codes: E87.1 - Hypo-osmolality and hyponatremia Status: Resolved Plan: Hyponatremia with acute renal failure, asymptomatic - Free water restriction until sodium improved - Hypertonic saline only if symptomatic or severe - Monitor electrolytes - Hemodialysis per nephrology (7) DM2 (diabetes mellitus, type 2) ICD Codes: E11.9 - Type 2 diabetes mellitus without complications Status: Chronic Plan: History of diabetes type II - Sliding scale insulin with glucose goal of 140-180 (8) HTN (hypertension) ICD Codes: I10 - HTN (hypertension) Status: Chronic Plan: Impression: Mild hypertension during hospitalization with SBP 140s-160 - Continue carvedilol 3.125 bid -Will plan for dosage increase if persistent (9) Hypothyroidism ICD Codes: E03.9 - Hypothyroidism, unspecified Status: Chronic Plan: TSH normal - Levothyroxine 50 mcg daily (10) DVT Prophylaxis Status: Acute Plan: Heparin drip discontinued due to anemia/ suspected active bleeding (11) Secondary hyperparathyroidism (of renal origin) ICD Codes: N25.81 - Secondary hyperparathyroidism of renal origin Status: Acute Plan: Patient with secondary hyperparathyroidism with significantly elevated phosphate and low calcium. Intact PTH 364.5 1,25 OH Vit D pending - Dietary phosphate restriction to 900 mg/day -Consider PhosLo -Management per Nephrology (12) Nutrition, metabolism, and development symptoms ICD Codes: R63.8 - Other symptoms and signs concerning food and fluid intake Status: Acute Plan: Regular diet 1L free water restriction, may be able to increase as she is urinating "all over the bed" Phosphate restriction 900 mg/day for hyperphosphatemia Hyponatremia, hyperkalemia initially Receiving dialysis per nephrology Acute renal failure with CKD, monitor renal function Protonix IV 40 mg daily Problem Qualifiers (1) Acute on chronic kidney failure: Qualified Codes: N17.9 - Acute kidney failure, unspecified; N18.9 - Chronic kidney disease, unspecified (2) Anemia: Qualified Codes: D64.9 - Anemia, unspecified (3) DM2 (diabetes mellitus, type 2): (4) HTN (hypertension): Qualified Codes: I10 - Essential (primary) hypertension (5) Hypothyroidism: Qualified Codes: E03.9 - Hypothyroidism, unspecified Cris Santana MD Apr 28, 2017 14:22
[2017-04-28] MEDS ORDERED: LORazepam 2 MG/ML VIAL ONE (15:11)
--- NOTE | 2017-04-28 16:53 | RADRPT ---
EXAM DATE/TIME: 04/28/2017 16:14 INDICATIONS : Patient with chronic kidney disease in need of dialysis catheter exchange. MEDICAL HISTORY : CKD, Diabetes, HTN, COPD, Anemia, Hypothyroidism, HLD, Peripheral neuropathy, Gastric ulcer, CHF, CVA , Dialysis SURGICAL HISTORY : Dialysis catheter, Appendectomy, 3rd right toe amputation ENCOUNTER: Initial ACUITY: 1 week PAIN SCORE: 10/10 LOCATION: Lower back FLUORO TIME: 0.3 minutes IMAGE SERIES: 2 SEDATION TIME: 10minutes MEDICATION(S): 1.) 1 mg lorazepam (Ativan) IV 2.) 50 mcg fentanyl (Sublimaze) IV DEVICE(S): 1.) 14 Greek dual lumen 20 cm Vas Cath PROCEDURE: CENTRAL VENOUS CATHETER REPLACEMENT, RT 1. Fluoroscopically guided central venous catheter exchange. The risks, benefits and alternatives to the procedure were explained and verbal and written consent w as obtained. The site was prepped in sterile fashion. Full sterile technique was used, including ca p, mask, sterile gloves and gown and a large sterile sheet. Hand hygiene and 2% chlorhexidine and/or betadine/alcohol prep was utilized per protocol for cutaneous antisepsis. The skin and subcutaneous tissues were infiltrated with local anesthetic solution. With fluoroscopic guidance the previously placed central venous catheter was exchanged for the prescr ibed catheter as above. Post procedure image demonstrates satisfactory position of the tube. The cath eter was sutured in place. CONCLUSION: Uncomplicated venous catheter change as above. Stoney Morrow MD on April 28, 2017 at 16:51 Board Certified Radiologist. This report was verified electronically.
--- NOTE | 2017-04-28 18:26 | PD.CARD.PN ---
Subjective Subjective Remarks Seen post-cath on HD Doing well, no complaints, uncomfortable on HD from laying flat Objective Medications Current Medications Medications (Trade) Dose Ordered Sig/Des Route Start Time Stop Time Status Last Admin (NS Flush) 2 ml UNSCH PRN IV FLUSH 04/21/17 06:45 04/27/17 14:10 (NS Flush) 2 ml BID IV FLUSH 04/21/17 09:00 04/28/17 08:07 (Protonix Inj) 40 mg DAILY IV PUSH 04/21/17 09:00 04/28/17 08:06 (Duoneb Neb) 1 ampule Q4HR NEB PRN INH 04/21/17 06:45 Miscellaneous Information 1 Q361D XX 04/21/17 06:45 (Chlorhexidine 2% Cloth) Taper DAILY@04 TOP 04/22/17 04:00 04/18/18 03:59 04/27/17 00:35 (Chlorhexidine 2% Cloth) 3 pack UNSCH PRN TOP 04/21/17 06:45 (Malaika-Colace) 1 tab BID PO 04/21/17 09:00 04/27/17 20:59 (Milk Of Magnesia Liq) 30 ml Q12H PRN PO 04/21/17 06:45 (Senokot) 17.2 mg Q12H PRN PO 04/21/17 06:45 (Dulcolax Supp) 10 mg DAILY PRN RECTAL 04/21/17 06:45 (Lactulose Liq) 30 ml DAILY PRN PO 04/21/17 06:45 (Aspirin Chew) 81 mg DAILY CHEW 04/22/17 09:00 04/28/17 08:07 (Coreg) 3.125 mg Q12HR PO 04/21/17 09:00 04/28/17 08:07 (Lipitor) 10 mg HS PO 04/21/17 21:00 04/27/17 20:59 (Vitamin B12) 500 mcg DAILY PO 04/21/17 09:00 04/28/17 08:07 (Synthroid) 50 mcg DAILY@0600 PO 04/21/17 07:00 04/28/17 05:34 (NovoLOG SUPPLEMENTAL SCALE) 1 Q4HR SQ 04/21/17 08:00 04/28/17 00:22 (SoluMEDROL INJ) 60 mg Q12HR IV PUSH 04/21/17 11:30 04/28/17 09:00 Levofloxacin/ Dextrose 100 ml @ 100 mls/hr Q48H IV 04/21/17 12:00 04/27/17 12:00 (Restoril) 15 mg HS PRN PO 04/21/17 20:45 04/27/17 22:31 Sodium Chloride 1,000 ml @ 0 mls/hr Q0M PRN OTHER 04/22/17 14:04 (Heparin Inj) 8,000 units UNSCH PRN IV FLUSH 04/22/17 14:15 04/24/17 12:11 Sodium Chloride 1,000 ml @ 200 mls/hr Q5H PRN IV 04/22/17 14:04 Sodium Chloride 1,000 ml @ 0 mls/hr Q0M PRN OTHER 04/22/17 14:04 (Mannitol Inj) 12.5 gm UNSCH PRN IV 04/22/17 14:15 Albumin Human 100 ml @ 60 mls/hr UNSCH PRN IV 04/22/17 14:15 (NS Flush) 5 ml UNSCH PRN IV FLUSH 04/22/17 14:15 (Heparin Inj) UNSCH PRN .XX 04/22/17 14:15 (Gentamicin (Dialysis) Inj) 20 mg UNSCH PRN OTHER 04/22/17 14:15 04/24/17 12:10 (Zofran Inj) 4 mg UNSCH PRN IV PUSH 04/22/17 14:15 (Tylenol) 650 mg UNSCH PRN PO 04/22/17 14:15 04/25/17 12:21 (Benadryl) 25 mg UNSCH PRN PO 04/22/17 14:15 (Nitrostat Sl) 0.4 mg UNSCH PRN SL 04/22/17 14:15 (Catapres) 0.1 mg UNSCH PRN PO 04/22/17 14:15 04/27/17 22:31 (Gelfoam 12 Mm/7 Mm Top) 1 foam UNSCH PRN TOP 04/22/17 14:15 (Apresoline Inj) 10 mg Q30M PRN IV PUSH 04/23/17 13:15 04/28/17 00:22 (Phoslo) 2,001 mg TID PO 04/23/17 18:00 04/27/17 18:39 (Rocaltrol) 0.25 mcg DAILY PO 04/24/17 09:15 04/28/17 08:07 (Atropine Inj) 0.5 mg UNSCH PRN IV PUSH 04/24/17 10:00 (NS Flush) 2 ml BID IV FLUSH 04/24/17 21:00 04/28/17 09:00 (NS Flush) 2 ml UNSCH PRN IV FLUSH 04/24/17 15:45 (Lopressor) 12.5 mg BOX ICER PO 04/24/17 15:45 05/01/17 15:44 (Hibiclens 4% Top Soln) 1 applic BOX ICER TOPICAL 04/24/17 15:45 05/01/17 15:44 (D50w (Vial) Inj) 50 ml UNSCH PRN IV PUSH 04/24/17 15:45 (Morphine Inj) 2 mg Q3H PRN IV PUSH 04/26/17 09:30 04/26/17 20:54 (Bumex Inj) 2 mg BID@18 IV PUSH 04/26/17 20:45 04/28/17 08:07 (Brilinta) 90 mg BID PO 04/29/17 09:00 Vital Signs / I&O Vital Signs Date Time Temp Pulse Resp B/P (MAP) Pulse Ox O2 Delivery O2 Flow Rate FiO2 04/28/17 16:34 93 Nasal Cannula 2.00 04/28/17 14:00 70 04/28/17 13:30 98.0 63 16 142/72 (95) 93 04/28/17 10:56 96 Nasal Cannula 2.00 04/28/17 08:00 98.6 67 16 140/65 (90) 93 04/28/17 08:00 70 04/28/17 07:10 Room Air 04/28/17 06:03 75 04/28/17 04:49 98.5 69 147/68 (94) 90 04/28/17 04:00 70 04/28/17 03:00 73 04/28/17 02:00 72 04/28/17 01:15 97.0 70 186/84 (118) 94 04/28/17 01:00 72 04/28/17 00:00 80 04/27/17 23:19 77 04/27/17 22:00 80 04/27/17 21:51 73 04/27/17 20:30 96.9 78 183/85 (117) 94 04/27/17 20:05 95 Nasal Cannula 2.00 04/27/17 20:00 97.8 85 17 168/78 (108) 94 04/27/17 20:00 85 I/O 04/27/17 04/27/17 04/27/17 04/28/17 04/28/17 04/28/17 07:00 15:00 23:00 07:00 15:00 23:00 Intake Total 240 ml 480 ml 120 ml Output Total 300 ml 275 ml Balance 240 ml 180 ml -155 ml Intake Oral 240 ml 480 ml 120 ml Output Urine Total 300 ml 275 ml # Voids 2 6 1 # Bowel Movements 1 0 Physical Exam GENERAL: NAD, AAOx3 SKIN: Warm and dry. HEAD: Atraumatic. Normocephalic. EYES: Pupils equal and round. No scleral icterus. No injection or drainage. ENT: No nasal bleeding or discharge. Mucous membranes pink and moist. NECK: Trachea midline. No JVD. CARDIOVASCULAR: Regular rate and rhythm. RESPIRATORY: No accessory muscle use. Clear to auscultation. Breath sounds equal bilaterally. GASTROINTESTINAL: Abdomen soft, non-tender, nondistended. Hepatic and splenic margins not palpable. MUSCULOSKELETAL: Extremities without clubbing, cyanosis, or edema. No obvious deformities. Right femoral with ecchymosis, left femoral sheath in place NEUROLOGICAL: Awake and alert. No obvious cranial nerve deficits. Motor grossly within normal limits. Five out of 5 muscle strength in the arms and legs. Normal speech. PSYCHIATRIC: Appropriate mood and affect; insight and judgment normal. Laboratory Laboratory Tests Test 04/28/17 05:59 White Blood Count 17.2 TH/MM3 Red Blood Count 3.41 MIL/MM3 Hemoglobin 11.0 GM/DL Hematocrit 31.9 % Mean Corpuscular Volume 93.6 FL Mean Corpuscular Hemoglobin 32.3 PG Mean Corpuscular Hemoglobin Concent 34.5 % Red Cell Distribution Width 14.5 % Platelet Count 176 TH/MM3 Mean Platelet Volume 8.8 FL Neutrophils (%) (Auto) 93.5 % Lymphocytes (%) (Auto) 2.8 % Monocytes (%) (Auto) 3.7 % Eosinophils (%) (Auto) 0.0 % Basophils (%) (Auto) 0.0 % Neutrophils # (Auto) 16.1 TH/MM3 Lymphocytes # (Auto) 0.5 TH/MM3 Monocytes # (Auto) 0.6 TH/MM3 Eosinophils # (Auto) 0.0 TH/MM3 Basophils # (Auto) 0.0 TH/MM3 CBC Comment DIFF FINAL Differential Comment Activated Partial Thromboplast Time 24.5 SEC Blood Urea Nitrogen 126 MG/DL Creatinine 4.62 MG/DL Random Glucose 220 MG/DL Total Protein 4.9 GM/DL Albumin 2.0 GM/DL Calcium Level 7.8 MG/DL Alkaline Phosphatase 71 U/L Aspartate Amino Transf (AST/SGOT) 13 U/L Alanine Aminotransferase (ALT/SGPT) 24 U/L Total Bilirubin 0.5 MG/DL Sodium Level 134 MEQ/L Potassium Level 4.2 MEQ/L Chloride Level 96 MEQ/L Carbon Dioxide Level 27.3 MEQ/L Anion Gap 11 MEQ/L Estimat Glomerular Filtration Rate 10 ML/MIN Imaging Last 24 hours Impressions Catheter Placement X-Ray 04/28/17 0000 Signed Impressions: Service Date/Time: Friday, April 28, 2017 16:14 - CONCLUSION: Uncomplicated venous catheter change as above. Stoney Morrow MD Assessment and Plan Problem List: (1) NSTEMI (non-ST elevated myocardial infarction) ICD Codes: I21.4 - Non-ST elevation (NSTEMI) myocardial infarction Status: Acute (2) Acute on chronic kidney failure ICD Codes: N17.9 - Acute kidney failure, unspecified; N18.9 - Chronic kidney disease, unspecified Status: Acute (3) HTN (hypertension) ICD Codes: I10 - HTN (hypertension) Status: Chronic (4) HLD (hyperlipidemia) ICD Codes: E78.5 - HLD (hyperlipidemia) Status: Chronic (5) Anemia ICD Codes: D64.9 - Anemia, unspecified Status: Acute Assessment and Plan 1) NSTEMI/CAD Multivessel CAD ASA/BB/Statin Turned down for CABG s/p PCI of LCX with DESx2 (mid 2.5x22, distal 2.25x15 overlapped), PCI OM1 with ROMAN (2.25x18) Plan for PCI LAD on Monday Added Brilinta s/p PCI 2) LEEANN on CKD HD started Still making urine Attempt to decrease nephrotoxin medications (contrast) if possible, not sure if chronic yet 3) Anemia Post-procedure Now with right groin hematoma No PSA or RPB Discussed with Dr. Manzanares, will continue to follow Problem Qualifiers (1) Acute on chronic kidney failure: Qualified Codes: N17.9 - Acute kidney failure, unspecified; N18.9 - Chronic kidney disease, unspecified (2) HTN (hypertension): Qualified Codes: I10 - Essential (primary) hypertension (3) HLD (hyperlipidemia): Qualified Codes: E78.5 - Hyperlipidemia, unspecified (4) Anemia: Qualified Codes: D64.9 - Anemia, unspecified Hemanth Cole DO Apr 28, 2017 18:26
[2017-04-28] MEDS: GENTAMICIN SULFATE (DIALYSIS USE ONLY) 20 MG/2 ML VIAL OTHER PRN (19:06)
[2017-04-28] MEDS: HEPARIN SODIUM - IV 10,000 UNITS/10 ML VIAL IV FLUSH PRN (19:06)
[2017-04-28] MEDS: ALBUMIN 25% INJ 100 ML IV PRN (19:07)
[2017-04-28] MEDS: ATORVASTATIN 10 MG TAB PO SCH (20:41)
[2017-04-28] MEDS: MORPHINE SULFATE 2 MG/ML INJ IV PUSH PRN (20:41)
--- NOTE | 2017-04-28 21:04 | MA ---
cc: HEMANTH DAMICO DO DATE: 04/28/2017. PROCEDURE PERFORMED: Coronary angiogram, COUNSELOR AID left circumflex, Jessy drug-eluting stent x2 (mid 2.5 x 22, distal 2.25 x 15, overlapped) to the [id number] left circumflex COUNSELOR AID, jessy drug-eluting stent (2.25 x 18) to OM1, complex case. PREPROCEDURE DIAGNOSIS: NSTEMI, multivessel coronary artery disease, turned down for coronary artery bypass grafting. POSTPROCEDURE DIAGNOSIS NSTEMI, status post jessy drug-eluting stent x2 (mid 2.5 x 22, distal 2.25 x 15 overlapped) to the left circumflex, jessy drug-eluting stent (2.25 x 18) to OM1. MEDICATIONS: 1. Fentanyl 150 micrograms. 2. Heparin 8500 units. 3. Brilinta 180 milligrams. CONTRAST USED: 175 mL. FLUOROSCOPY: 49.5 minutes. SEDATION: Moderate sedation, 0 minutes. ESTIMATED BLOOD LOSS: 40 mL. PROCEDURAL SUMMARY: Michelle Alicia is a pleasant 61-year-old female who originally presented with an NSTEMI and was found to have multivessel disease. She was seen by CT surgery and turned down for coronary artery bypass grafting due to poor pulmonary function. I discussed this with her daughter including the risks, benefits and alternatives and she wanted to proceed with high-risk stenting. She was brought to the lab and prepped in the usual sterile fashion. Her right femoral vein was accessed using a modified Seldinger technique and placement of a 6-Welsh sheath. Right femoral artery was accessed using a modified Seldinger technique and placement of a 6-Welsh sheath. Both were easily aspirated and flushed. An EBU 3.5 guide was then advanced and engaged into the left main. The patient was given heparin as an anticoagulant. A BMW wire was preloaded into an kqwu-lfy-xjos balloon and advanced to the COUNSELOR AID of the left circumflex and through it. The dtgc-yyq-dmad balloon was then advanced and contrast was placed through the balloon to show it was intraluminal. A [place] wire was then advanced into the distal obtuse marginal. A compliant balloon (2.0 x 12) was then used to pre-dilate the COUNSELOR AID lesion. This was exchanged out for a noncompliant balloon (2.0 x 12). After this, there was notable dissection distal to the COUNSELOR AID. As I was unable to get the compliant balloon to the distal lesion, the Sprinter apfi-ict-fjha balloon (1.25 x 15) was then used to further pre-dilate the distal portion of the COUNSELOR AID lesion. This was exchanged out for a compliant balloon (2.0 x 15), which was used to pre-dilate the distal left circumflex lesion as well as the mid circumflex lesion. An Jessy drug-eluting stent (2.25 x 15) was then unable to get to the distal lesion. This was then removed and a guide liner was placed which allowed us to place the [place] drug-eluting stent (2.25 x 15) to the distal lesion and inflate it. An [place] drug-eluting stent (2.5 x 22) was then placed overlapped with the distal lesion and retrograde to cover the dissection and previous COUNSELOR AID. A noncompliant balloon (2.5 x 15) was then used to post-dilate both stents. At this time, a [place] wire was then advanced into the obtuse marginal and a compliant balloon (2.0 x 15) was used to pre-dilate the lesion. An jessy drug-eluting stent (2.25 x 18) was then placed over the lesion and inflated. A noncompliant balloon (2.5 x 12) was then used to attempt to post-dilate the stent. There was notice of a focal area where the stent was not fully expanded. A noncompliant balloon (2.5 x 6) was used for focal inflation of that area with good expansion. Final angiogram shows well-apposed stents with no perforation or dissection. The guide and wires were removed. 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 FINDINGS: 1. Left main: Significant calcification with 20% disease. 2. Left circumflex: 50% stenosis before the takeoff of the first obtuse marginal. 100% COUNSELOR AID in the midportion. Mid to distal there is a 70% lesion. 3. Obtuse marginal: 80% lesion. IMPRESSIONS: 1. NSTEMI. 2. Multivessel coronary artery disease turned down for coronary artery bypass grafting. 3. Percutaneous coronary intervention of left circumflex and obtuse marginal as above. RECOMMENDATIONS: 1. Ms. Alicia underwent percutaneous coronary intervention of her left circumflex and obtuse marginal as above. She will be placed on aspirin and Brilinta therapy. 2. I will plan on intervening on her left anterior descending on Monday if stable over the weekend. 3. Her dialysis port has not worked today and so she will be taken to interventional radiology for an exchange out and then receive dialysis today. 4. She will continue on aspirin, beta dayami and statin therapy. RISSA and ARB therapy will be held as she is receiving dialysis but we are unsure if this is chronic and we will avoid nephrotoxins at this time. Thank you for allowing me to see Michelle Alicia. If there are any questions, please do not hesitate to call. Hemanth Damico DO VGP/JAIME /7:24 PM /8:39 PM
[2017-04-29] VITALS (33 sets, daily range): BP systolic 123–171; BP diastolic 60–85; PULSE 69–83; RESP 16–20; TEMP 97.8–99.2; O2SAT 91–99
[2017-04-29] MEDS: TEMAZEPAM 15 MG CAP PO PRN (00:14)
[2017-04-29] MEDS: MORPHINE SULFATE 2 MG/ML INJ IV PUSH PRN ×2 (03:08→13:33)
[2017-04-29] MEDS: INSULIN ASPART SUPPLEMENTAL SCALE SQ SCH ×6 (04:00→21:26)
[2017-04-29] MEDS: CHLORHEXIDINE GLUCONATE 2 % 1 PACK (2 CLOTHS) TOP SCH ×2 (04:00→21:37)
[2017-04-29] MEDS: LEVOTHYROXINE SODIUM 50 MCG TAB PO SCH (05:17)
[2017-04-29 06:05] LABS: APTT (PATIENT) 24.4 SEC (24.3-30.1)
[2017-04-29 06:08] LABS: BICARBONATE 28.5 MEQ/L (21.0-32.0); POTASSIUM 4.5 MEQ/L (3.5-5.1)
[2017-04-29 07:57] LABS: AUTOMATED NEUTROPHIL # 14.3 TH/MM3 (1.8-7.7); BASOPHIL % 0.1 % (0.0-2.0); LYMPH % 2.1 % (9.0-44.0); LYMPHOCYTE # 0.3 TH/MM3 (1.0-4.8); MEAN CELL VOLUME 95.2 FL (80.0-100.0); MEAN CORPUSCULAR HEMOGLOBIN 31.5 PG (27.0-34.0); MEAN CORPUSCULAR HGB CONC 33.1 % (32.0-36.0); MONO % 7.7 % (0.0-8.0); NEUT % 90.1 % (16.0-70.0); PLATELET COUNT 134 TH/MM3 (150-450); RED BLOOD COUNT 2.01 MIL/MM3 (4.00-5.30); RED CELL DISTRIBUTION WIDTH 14.3 % (11.6-17.2); WHITE BLOOD COUNT 15.9 TH/MM3 (4.0-11.0)
[2017-04-29 07:59] LABS: HEMO FLAGS DIFF FINAL
[2017-04-29 08:02] LABS: HEMATOCRIT 19.1 % (35.0-46.0)
[2017-04-29] MEDS: SODIUM CHLORIDE 0.9% FLUSH 10 ML FLUSH IV FLUSH SCH ×4 (09:00→21:00)
--- NOTE | 2017-04-29 09:18 | PD.CARD.PN ---
Subjective Subjective Remarks No CV complaints Very tender on right groin, Big right side hematoma Significant drop on H&H this AM. Stable HR and BP Objective Medications Current Medications Medications (Trade) Dose Ordered Sig/Des Route Start Time Stop Time Status Last Admin (NS Flush) 2 ml UNSCH PRN IV FLUSH 04/21/17 06:45 04/27/17 14:10 (NS Flush) 2 ml BID IV FLUSH 04/21/17 09:00 04/28/17 20:42 (Protonix Inj) 40 mg DAILY IV PUSH 04/21/17 09:00 04/28/17 08:06 (Duoneb Neb) 1 ampule Q4HR NEB PRN INH 04/21/17 06:45 Miscellaneous Information 1 Q361D XX 04/21/17 06:45 (Chlorhexidine 2% Cloth) Taper DAILY@04 TOP 04/22/17 04:00 04/18/18 03:59 04/27/17 00:35 (Chlorhexidine 2% Cloth) 3 pack UNSCH PRN TOP 04/21/17 06:45 (Malaika-Colace) 1 tab BID PO 04/21/17 09:00 04/28/17 20:41 (Milk Of Magnesia Liq) 30 ml Q12H PRN PO 04/21/17 06:45 (Senokot) 17.2 mg Q12H PRN PO 04/21/17 06:45 (Dulcolax Supp) 10 mg DAILY PRN RECTAL 04/21/17 06:45 (Lactulose Liq) 30 ml DAILY PRN PO 04/21/17 06:45 (Aspirin Chew) 81 mg DAILY CHEW 04/22/17 09:00 04/28/17 08:07 (Coreg) 3.125 mg Q12HR PO 04/21/17 09:00 04/28/17 20:41 (Lipitor) 10 mg HS PO 04/21/17 21:00 04/28/17 20:41 (Vitamin B12) 500 mcg DAILY PO 04/21/17 09:00 04/28/17 08:07 (Synthroid) 50 mcg DAILY@0600 PO 04/21/17 07:00 04/29/17 05:17 (NovoLOG SUPPLEMENTAL SCALE) 1 Q4HR SQ 04/21/17 08:00 04/29/17 04:00 (SoluMEDROL INJ) 60 mg Q12HR IV PUSH 04/21/17 11:30 04/28/17 20:41 Levofloxacin/ Dextrose 100 ml @ 100 mls/hr Q48H IV 04/21/17 12:00 04/27/17 12:00 (Restoril) 15 mg HS PRN PO 04/21/17 20:45 04/29/17 00:14 Sodium Chloride 1,000 ml @ 0 mls/hr Q0M PRN OTHER 04/22/17 14:04 (Heparin Inj) 8,000 units UNSCH PRN IV FLUSH 04/22/17 14:15 04/28/17 19:06 Sodium Chloride 1,000 ml @ 200 mls/hr Q5H PRN IV 04/22/17 14:04 Sodium Chloride 1,000 ml @ 0 mls/hr Q0M PRN OTHER 04/22/17 14:04 (Mannitol Inj) 12.5 gm UNSCH PRN IV 04/22/17 14:15 Albumin Human 100 ml @ 60 mls/hr UNSCH PRN IV 04/22/17 14:15 04/28/17 19:07 (NS Flush) 5 ml UNSCH PRN IV FLUSH 04/22/17 14:15 (Heparin Inj) UNSCH PRN .XX 04/22/17 14:15 (Gentamicin (Dialysis) Inj) 20 mg UNSCH PRN OTHER 04/22/17 14:15 04/28/17 19:06 (Zofran Inj) 4 mg UNSCH PRN IV PUSH 04/22/17 14:15 (Tylenol) 650 mg UNSCH PRN PO 04/22/17 14:15 04/25/17 12:21 (Benadryl) 25 mg UNSCH PRN PO 04/22/17 14:15 (Nitrostat Sl) 0.4 mg UNSCH PRN SL 04/22/17 14:15 (Catapres) 0.1 mg UNSCH PRN PO 04/22/17 14:15 04/27/17 22:31 (Gelfoam 12 Mm/7 Mm Top) 1 foam UNSCH PRN TOP 04/22/17 14:15 (Apresoline Inj) 10 mg Q30M PRN IV PUSH 04/23/17 13:15 04/28/17 00:22 (Phoslo) 2,001 mg TID PO 04/23/17 18:00 04/28/17 20:40 (Rocaltrol) 0.25 mcg DAILY PO 04/24/17 09:15 04/28/17 08:07 (Atropine Inj) 0.5 mg UNSCH PRN IV PUSH 04/24/17 10:00 (NS Flush) 2 ml BID IV FLUSH 04/24/17 21:00 04/28/17 20:42 (NS Flush) 2 ml UNSCH PRN IV FLUSH 04/24/17 15:45 (Lopressor) 12.5 mg SHIPPING INSPECTOR PO 04/24/17 15:45 05/01/17 15:44 (Hibiclens 4% Top Soln) 1 applic SHIPPING INSPECTOR TOPICAL 04/24/17 15:45 05/01/17 15:44 (D50w (Vial) Inj) 50 ml UNSCH PRN IV PUSH 04/24/17 15:45 (Morphine Inj) 2 mg Q3H PRN IV PUSH 04/26/17 09:30 04/29/17 03:08 (Bumex Inj) 2 mg BID@,18 IV PUSH 04/26/17 20:45 04/28/17 20:41 (Brilinta) 90 mg BID PO 04/29/17 09:00 Vital Signs / I&O Vital Signs Date Time Temp Pulse Resp B/P (MAP) Pulse Ox O2 Delivery O2 Flow Rate FiO2 04/29/17 08:00 98.6 75 19 125/63 (83) 91 04/29/17 08:00 80 04/29/17 08:00 91 Room Air 04/29/17 07:13 75 04/29/17 07:00 76 04/29/17 05:00 70 04/29/17 04:00 74 04/29/17 03:00 98.2 72 18 154/85 (108) 99 04/29/17 03:00 98 Nasal Cannula 2.00 04/29/17 03:00 75 04/29/17 02:00 74 04/29/17 01:00 70 04/29/17 00:00 70 04/28/17 23:13 98.2 71 18 142/59 (86) 95 04/28/17 23:00 70 04/28/17 22:00 68 04/28/17 21:00 68 04/28/17 20:50 18 04/28/17 20:00 72 04/28/17 19:01 98 Nasal Cannula 2.00 04/28/17 19:00 98.2 76 18 145/67 (93) 97 04/28/17 19:00 70 04/28/17 19:00 90 Room Air 04/28/17 16:34 93 Nasal Cannula 2.00 04/28/17 14:00 70 04/28/17 13:30 98.0 63 16 142/72 (95) 93 04/28/17 10:56 96 Nasal Cannula 2.00 I/O 04/28/17 04/28/17 04/28/17 04/29/17 04/29/17 04/29/17 07:00 15:00 23:00 07:00 15:00 23:00 Intake Total 120 ml Output Total 275 ml 2500 ml Balance -155 ml -2500 ml Intake Oral 120 ml Output Urine Total 275 ml Hemodialysis 2500 ml # Voids 1 Physical Exam GENERAL: Well-nourished, well-developed patient. SKIN: Warm and dry. HEAD: Normocephalic. EYES: No scleral icterus. No injection or drainage. NECK: Supple, trachea midline. No JVD or lymphadenopathy. CARDIOVASCULAR: Regular rate and rhythm without murmurs, gallops, or rubs. RESPIRATORY: Breath sounds equal bilaterally. No accessory muscle use. GASTROINTESTINAL: Abdomen soft, tender, nondistended. EXTREMITIES: No cyanosis, or edema. NEUROLOGICAL: Awake, alert, and oriented x 3. Non-focal. Laboratory Laboratory Tests Test 04/29/17 07:45 White Blood Count 15.9 TH/MM3 Red Blood Count 2.01 MIL/MM3 Hemoglobin 6.3 GM/DL Hematocrit 19.1 % Mean Corpuscular Volume 95.2 FL Mean Corpuscular Hemoglobin 31.5 PG Mean Corpuscular Hemoglobin Concent 33.1 % Red Cell Distribution Width 14.3 % Platelet Count 134 TH/MM3 Mean Platelet Volume 8.6 FL Neutrophils (%) (Auto) 90.1 % Lymphocytes (%) (Auto) 2.1 % Monocytes (%) (Auto) 7.7 % Eosinophils (%) (Auto) 0.0 % Basophils (%) (Auto) 0.1 % Neutrophils # (Auto) 14.3 TH/MM3 Lymphocytes # (Auto) 0.3 TH/MM3 Monocytes # (Auto) 1.2 TH/MM3 Eosinophils # (Auto) 0.0 TH/MM3 Basophils # (Auto) 0.0 TH/MM3 CBC Comment DIFF FINAL Differential Comment Activated Partial Thromboplast Time 24.4 SEC Blood Urea Nitrogen 96 MG/DL Creatinine 3.77 MG/DL Random Glucose 190 MG/DL Calcium Level 7.7 MG/DL Sodium Level 138 MEQ/L Potassium Level 4.5 MEQ/L Chloride Level 99 MEQ/L Carbon Dioxide Level 28.5 MEQ/L Anion Gap 11 MEQ/L Estimat Glomerular Filtration Rate 12 ML/MIN Imaging Last Impressions Catheter Placement X-Ray 04/28/17 0000 Signed Impressions: Service Date/Time: Friday, April 28, 2017 16:14 - CONCLUSION: Uncomplicated venous catheter change as above. Stoney Morrow MD Abdomen/Pelvis CT 04/26/17 0917 Signed Impressions: Service Date/Time: Wednesday, April 26, 2017 11:16 - CONCLUSION: 1. There is a right inguinal and right lower quadrant abdominal wall hematoma measuring up to 8.8 cm. There is surrounding subcutaneous inflammatory changes which extend into the mons pubis region. 2. There is bilateral flank edema. 3. Nonacute findings include small left pleural effusion, severe atherosclerotic disease, and sigmoid diverticulosis. Keegan Santos MD Lower Extremity Ultrasound 04/26/17 0000 Signed Impressions: Service Date/Time: Wednesday, April 26, 2017 14:24 - CONCLUSION: Large groin hematoma. No evidence of pseudoaneurysm Keegan Cedeno MD Chest X-Ray 04/22/17 0600 Signed Impressions: Service Date/Time: Saturday, April 22, 2017 02:19 - CONCLUSION: No acute cardiopulmonary disease identified. Trevor Townsend MD Renal Ultrasound 04/21/17 0000 Signed Impressions: Service Date/Time: Friday, April 21, 2017 17:11 - CONCLUSION: Stone in the lateral left kidney. No evidence of hydronephrosis or solid mass. No evidence of obstruction. Kirill Linder MD Assessment and Plan Problem List: (1) NSTEMI (non-ST elevated myocardial infarction) ICD Codes: I21.4 - Non-ST elevation (NSTEMI) myocardial infarction Status: Acute Plan: 61 y/o F s/p PCI. Hospitalization complicated with significant right groin hematoma and renal failure requiring HD. This AM significant drop on H&H. Right groin unchanged and left groin nontender, no hematoma. Unfortunately given recent stents DAPT CANNOT be stopped. Plan: 1. Transfuse 2UPRBC's 2. Repeat ABD CT r/o RP bleed 3. Cont aggressive medical management for CAD (2) Acute on chronic kidney failure ICD Codes: N17.9 - Acute kidney failure, unspecified; N18.9 - Chronic kidney disease, unspecified Status: Acute (3) HTN (hypertension) ICD Codes: I10 - HTN (hypertension) Status: Chronic (4) HLD (hyperlipidemia) ICD Codes: E78.5 - HLD (hyperlipidemia) Status: Chronic (5) Anemia ICD Codes: D64.9 - Anemia, unspecified Status: Acute Problem Qualifiers (1) Acute on chronic kidney failure: Qualified Codes: N17.9 - Acute kidney failure, unspecified; N18.9 - Chronic kidney disease, unspecified (2) HTN (hypertension): Qualified Codes: I10 - Essential (primary) hypertension (3) HLD (hyperlipidemia): Qualified Codes: E78.5 - Hyperlipidemia, unspecified (4) Anemia: Qualified Codes: D64.9 - Anemia, unspecified Kirk Tenorio MD Apr 29, 2017 09:18
--- NOTE | 2017-04-29 09:52 | HHI.FPPN ---
Subjective Remarks Patient seen and examined this morning. Temperature 98.6, pulse 80, respiratory rate 19, blood pressure 125/63, pulse ox 91 on room air. Labs of note showed an acute decrease in her hemoglobin and hematocrit from 11.0/31.9- 6.3/19.1 respectively. Patient to receive 2 units of packed red blood cells. Patient with a right lower extremity large hematoma, concern for possible worsening abdominal bleeding. CT abdomen ordered and pending. She denies any chest pain or shortness of breath. She reports pain in the right lower quadrant. Patient understands that the plan of care is for cardiac catheterization on Monday05/01/17 (Balaji Cordova MD, R3) Objective Vitals Vital Signs Date Time Temp Pulse Resp B/P (MAP) Pulse Ox O2 Delivery O2 Flow Rate FiO2 04/29/17 08:00 98.6 75 19 125/63 (83) 91 04/29/17 08:00 80 04/29/17 08:00 91 Room Air 04/29/17 07:13 75 04/29/17 07:00 76 04/29/17 05:00 70 04/29/17 04:00 74 04/29/17 03:00 98.2 72 18 154/85 (108) 99 04/29/17 03:00 98 Nasal Cannula 2.00 04/29/17 03:00 75 04/29/17 02:00 74 04/29/17 01:00 70 04/29/17 00:00 70 04/28/17 23:13 98.2 71 18 142/59 (86) 95 04/28/17 23:00 70 04/28/17 22:00 68 04/28/17 21:00 68 04/28/17 20:50 18 04/28/17 20:00 72 04/28/17 19:01 98 Nasal Cannula 2.00 04/28/17 19:00 98.2 76 18 145/67 (93) 97 04/28/17 19:00 70 04/28/17 19:00 90 Room Air 04/28/17 16:34 93 Nasal Cannula 2.00 04/28/17 14:00 70 04/28/17 13:30 98.0 63 16 142/72 (95) 93 04/28/17 10:56 96 Nasal Cannula 2.00 I/O 04/28/17 04/28/17 04/28/17 04/29/17 04/29/17 04/29/17 07:00 15:00 23:00 07:00 15:00 23:00 Intake Total 120 ml Output Total 275 ml 2500 ml Balance -155 ml -2500 ml Intake Oral 120 ml Output Urine Total 275 ml Hemodialysis 2500 ml # Voids 1 (Balaji Cordova MD, R3) Result Diagram: 04/29/17 0745 04/29/17 0745 Imaging Last Impressions Catheter Placement X-Ray 04/28/17 0000 Signed Impressions: Service Date/Time: Friday, April 28, 2017 16:14 - CONCLUSION: Uncomplicated venous catheter change as above. Stoney Morrow MD Abdomen/Pelvis CT 04/26/17 0917 Signed Impressions: Service Date/Time: Wednesday, April 26, 2017 11:16 - CONCLUSION: 1. There is a right inguinal and right lower quadrant abdominal wall hematoma measuring up to 8.8 cm. There is surrounding subcutaneous inflammatory changes which extend into the mons pubis region. 2. There is bilateral flank edema. 3. Nonacute findings include small left pleural effusion, severe atherosclerotic disease, and sigmoid diverticulosis. Keegan Santos MD Lower Extremity Ultrasound 04/26/17 0000 Signed Impressions: Service Date/Time: Wednesday, April 26, 2017 14:24 - CONCLUSION: Large groin hematoma. No evidence of pseudoaneurysm Keegan Cedeno MD Chest X-Ray 04/22/17 0600 Signed Impressions: Service Date/Time: Saturday, April 22, 2017 02:19 - CONCLUSION: No acute cardiopulmonary disease identified. Trevor Townsend MD Renal Ultrasound 04/21/17 0000 Signed Impressions: Service Date/Time: Friday, April 21, 2017 17:11 - CONCLUSION: Stone in the lateral left kidney. No evidence of hydronephrosis or solid mass. No evidence of obstruction. Kirill Linder MD Objective Remarks General: Resting in bed in no acute distress with daughter at bedside. Large hematoma at left catheter site Skin: Warm and dry. bruising on left chest and other scattered bruises R ABD: Large hematoma from the right lower quadrant to pelvic area secondary to heart catheterization procedure. No pseudoaneurysm per CT. HEENT: Atraumatic, normocephalic with EOMI. MMM. No rhinorrhea. No JVD or LAD appreciated. CV: Regular rhythm with no MGR. 2+ pulses in all 4 extremities. Lungs:mild wheezing bilaterally with no CRW. Decreased air movement overall. No increased work of breathing. Abdomen: Soft, nontender, non-distended with positive bowel sounds. No masses appreciated. MSK: Not assessed at this exam- previously right third toe amputated, no swelling or tenderness Neuro: Awake, alert. Grossly normal CN. No peripheral motor/sensory defects appreciated. Procedures Vascath 04/22/17 Initiate hemodialysis 04/22/17 Medications and IVs Current Medications Medications (Trade) Dose Ordered Sig/Des Route Start Time Stop Time Status Last Admin (NS Flush) 2 ml UNSCH PRN IV FLUSH 04/21/17 06:45 04/27/17 14:10 (NS Flush) 2 ml BID IV FLUSH 04/21/17 09:00 04/28/17 20:42 (Protonix Inj) 40 mg DAILY IV PUSH 04/21/17 09:00 04/28/17 08:06 (Duoneb Neb) 1 ampule Q4HR NEB PRN INH 04/21/17 06:45 Miscellaneous Information 1 Q361D XX 04/21/17 06:45 (Chlorhexidine 2% Cloth) Taper DAILY@04 TOP 04/22/17 04:00 04/18/18 03:59 04/27/17 00:35 (Chlorhexidine 2% Cloth) 3 pack UNSCH PRN TOP 04/21/17 06:45 (Malaika-Colace) 1 tab BID PO 04/21/17 09:00 04/28/17 20:41 (Milk Of Magnesia Liq) 30 ml Q12H PRN PO 04/21/17 06:45 (Senokot) 17.2 mg Q12H PRN PO 04/21/17 06:45 (Dulcolax Supp) 10 mg DAILY PRN RECTAL 04/21/17 06:45 (Lactulose Liq) 30 ml DAILY PRN PO 04/21/17 06:45 (Aspirin Chew) 81 mg DAILY CHEW 04/22/17 09:00 04/28/17 08:07 (Coreg) 3.125 mg Q12HR PO 04/21/17 09:00 04/28/17 20:41 (Lipitor) 10 mg HS PO 04/21/17 21:00 04/28/17 20:41 (Vitamin B12) 500 mcg DAILY PO 04/21/17 09:00 04/28/17 08:07 (Synthroid) 50 mcg DAILY@0600 PO 04/21/17 07:00 04/29/17 05:17 (NovoLOG SUPPLEMENTAL SCALE) 1 Q4HR SQ 04/21/17 08:00 04/29/17 04:00 (SoluMEDROL INJ) 60 mg Q12HR IV PUSH 04/21/17 11:30 04/28/17 20:41 Levofloxacin/ Dextrose 100 ml @ 100 mls/hr Q48H IV 04/21/17 12:00 04/27/17 12:00 (Restoril) 15 mg HS PRN PO 04/21/17 20:45 04/29/17 00:14 Sodium Chloride 1,000 ml @ 0 mls/hr Q0M PRN OTHER 04/22/17 14:04 (Heparin Inj) 8,000 units UNSCH PRN IV FLUSH 04/22/17 14:15 04/28/17 19:06 Sodium Chloride 1,000 ml @ 200 mls/hr Q5H PRN IV 04/22/17 14:04 Sodium Chloride 1,000 ml @ 0 mls/hr Q0M PRN OTHER 04/22/17 14:04 (Mannitol Inj) 12.5 gm UNSCH PRN IV 04/22/17 14:15 Albumin Human 100 ml @ 60 mls/hr UNSCH PRN IV 04/22/17 14:15 04/28/17 19:07 (NS Flush) 5 ml UNSCH PRN IV FLUSH 04/22/17 14:15 (Heparin Inj) UNSCH PRN .XX 04/22/17 14:15 (Gentamicin (Dialysis) Inj) 20 mg UNSCH PRN OTHER 04/22/17 14:15 04/28/17 19:06 (Zofran Inj) 4 mg UNSCH PRN IV PUSH 04/22/17 14:15 (Tylenol) 650 mg UNSCH PRN PO 04/22/17 14:15 04/25/17 12:21 (Benadryl) 25 mg UNSCH PRN PO 04/22/17 14:15 (Nitrostat Sl) 0.4 mg UNSCH PRN SL 04/22/17 14:15 (Catapres) 0.1 mg UNSCH PRN PO 04/22/17 14:15 04/27/17 22:31 (Gelfoam 12 Mm/7 Mm Top) 1 foam UNSCH PRN TOP 04/22/17 14:15 (Apresoline Inj) 10 mg Q30M PRN IV PUSH 04/23/17 13:15 04/28/17 00:22 (Phoslo) 2,001 mg TID PO 04/23/17 18:00 04/28/17 20:40 (Rocaltrol) 0.25 mcg DAILY PO 04/24/17 09:15 04/28/17 08:07 (Atropine Inj) 0.5 mg UNSCH PRN IV PUSH 04/24/17 10:00 (NS Flush) 2 ml BID IV FLUSH 04/24/17 21:00 04/28/17 20:42 (NS Flush) 2 ml UNSCH PRN IV FLUSH 04/24/17 15:45 (Lopressor) 12.5 mg [employer] PO 04/24/17 15:45 05/01/17 15:44 (Hibiclens 4% Top Soln) 1 applic [employer] TOPICAL 04/24/17 15:45 05/01/17 15:44 (D50w (Vial) Inj) 50 ml UNSCH PRN IV PUSH 04/24/17 15:45 (Morphine Inj) 2 mg Q3H PRN IV PUSH 04/26/17 09:30 04/29/17 03:08 (Bumex Inj) 2 mg BID@,18 IV PUSH 04/26/17 20:45 04/28/17 20:41 (Brilinta) 90 mg BID PO 04/29/17 09:00 (Balaji Cordova MD, R3) A/P Assessment and Plan 61 yo female with NSTEMI, acute COPD exacerbation, acute renal failure with chronic renal disease requiring hemodialysis. 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 Cardiology and nephrology on board; receiving dialysis. 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 Discharge Planning Pending clinical course. Patient currently scheduled for cardiac catheterization with stenting on Monday in order to decrease contrast load as she is in acute renal failure. Patient to receive dialysis per nephrology schedule. (Balaji Cordova MD, R3) Attending Attestation Patient seen and examined. Case reviewed and discussed with the resident team. Agree with plan of care as discussed with me and documented in the resident note. Ms Alicia has huge hematomas and will get 2 units of blood today. Ordered a CBC after the transfusions and one for the morning. She may need more transfusions on Monday. She bleeds with her blood thinners and dialysis uses heparin. Saw her sister who I knew from a prior hospitalization and is doing well (Cris Santana MD) Problem List: (1) NSTEMI (non-ST elevated myocardial infarction) ICD Codes: I21.4 - Non-ST elevation (NSTEMI) myocardial infarction Status: Acute Plan: Impression: Troponin elevated at admission along with atypical chest pain. Non-specific ST-T wave changes on initial EKG's. ECHO with EF of 45-50% - Cardiology consulted -Heparin drip initiated per Cardiology -d/c due to hematoma and anemia - Continue aspirin 81 mg daily - Continue Lipitor 10 mg qHS - Continue Coreg 3.125 mg bid -s/p Catheterization per Dr. 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 Has proteinuria and oliguria with acute decrease in renal function. Her baseline creatinine is about 2.8, now with doubling of creatinine. Also with hyperkalemia and metabolic acidosis. Etiology includes chronic kidney disease with acute exacerbation possibly from poor cardiac output with NSTEMI. Renal ultrasound showing no obstruction, has stone that is non-obstructing Complement negative MIGUE negative Hepatitis profile negative - Nephrology consulted -S/P Dialysis 04/22 and 04/24; continue dialysis per nephrology recommendations -Monitor electrolytes - ANCA, SPEP, UPEP pending -IVF per Nephrology -Continue to monitor urine output, electrolytes - Avoid nephrotoxic agents, contrast agents She is making more and more urine which is a great sign that she can hope for some recovery and be able to stop dialysis at some point (3) Anemia ICD Codes: D64.9 - Anemia, unspecified Status: Acute Plan: Acute decrease in hemoglobin and hematocrit level. 11.0/31.9 to 6.3/ 19.1 respectively. -Patient is scheduled for transfusion of 2 units packed red blood cells. Posttransfusion H&H pending -Discussed with Cardiology; Heparin was stopped, but she needs it for procedures so may get more anemia -CT abdomen and pelvis 04/26: Right inguinal and right lower quadrant abdominal wall hematoma measuring 8.8 cm. Subcutaneous inflammatory changes which extend into the mons pubis region. Bilateral flank edema. Nonacute findings include small left pleural effusion, severe atherosclerotic disease, and sigmoid diverticulosis. No pseudoaneurysm. -Repeat CT abdomen pending due to the acute drop in hemoglobin and hematocrit -Vascular surgery consulted -No surgical intervention needed at this time -Cleared from a vascular standpoint 04/27 (4) COPD (chronic obstructive pulmonary disease) ICD Codes: J44.9 - Chronic obstructive pulmonary disease, unspecified Status: Chronic Plan: History of COPD with recent upper respiratory symptoms and acute exacerbation, recently diagnosed with pneumonia while on cruise ship and was started on azithromycin. - IV Solumedrol 60 mg q12hrs started 04/21 - DuoNebs q6hrs scheduled - Levaquin empirically, renally dosed, started 04/22 Q48H - O2 supplementation with target O2 90% (5) Hyperkalemia ICD Codes: E87.5 - Hyperkalemia; N18.9 - Chronic kidney disease, unspecified Status: Resolved Plan: Hyperkalemia up to 6.0 with acute renal failure. Resolved with hemodialysis. - Continue management per nephrology (6) Hyponatremia ICD Codes: E87.1 - Hypo-osmolality and hyponatremia Status: Resolved Plan: Hyponatremia with acute renal failure, asymptomatic, resolved at this time. - IV fluids per nephrology - Monitor electrolytes - Hemodialysis per nephrology (7) DM2 (diabetes mellitus, type 2) ICD Codes: E11.9 - Type 2 diabetes mellitus without complications Status: Chronic Plan: History of diabetes type II - Sliding scale insulin with glucose goal of 140-180 (8) HTN (hypertension) ICD Codes: I10 - HTN (hypertension) Status: Chronic Plan: Impression: Mild hypertension during hospitalization with SBP 140s-160 - Continue carvedilol 3.125 bid -Will plan for dosage increase if persistent (9) Hypothyroidism ICD Codes: E03.9 - Hypothyroidism, unspecified Status: Chronic Plan: TSH normal - Levothyroxine 50 mcg daily (10) DVT Prophylaxis Status: Acute Plan: Heparin drip discontinued due to anemia/ suspected active bleeding (11) Secondary hyperparathyroidism (of renal origin) ICD Codes: N25.81 - Secondary hyperparathyroidism of renal origin Status: Acute Plan: Patient with secondary hyperparathyroidism with significantly elevated phosphate and low calcium. Intact PTH 364.5 1,25 OH Vit D pending - Dietary phosphate restriction to 900 mg/day -Consider PhosLo -Management per Nephrology (12) Nutrition, metabolism, and development symptoms ICD Codes: R63.8 - Other symptoms and signs concerning food and fluid intake Status: Acute Plan: Regular diet IV fluids per nephrology Phosphate restriction 900 mg/day for hyperphosphatemia Hyponatremia, hyperkalemia initially Receiving dialysis per nephrology Acute renal failure with CKD, monitor renal function Protonix IV 40 mg daily (Balaji Cordova MD, R3) Problem Qualifiers (1) Acute on chronic kidney failure: Qualified Codes: N17.9 - Acute kidney failure, unspecified; N18.9 - Chronic kidney disease, unspecified (2) Anemia: Qualified Codes: D64.9 - Anemia, unspecified (3) DM2 (diabetes mellitus, type 2): (4) HTN (hypertension): Qualified Codes: I10 - Essential (primary) hypertension (5) Hypothyroidism: Qualified Codes: E03.9 - Hypothyroidism, unspecified Balaji Cordova MD, R3 Apr 29, 2017 09:52 Cris Santana MD Apr 29, 2017 15:54
[2017-04-29] MEDS: DOCUSATE SODIUM 50 MG/SENNA 8.6 MG TAB PO SCH ×2 (10:10→21:27)
[2017-04-29] MEDS: ASPIRIN 81 MG CHEW TAB CHEW SCH (10:10)
[2017-04-29] MEDS: TICAGRELOR 90 MG TAB PO SCH ×2 (10:11→21:29)
[2017-04-29] MEDS: CYANOCOBALAMIN 1,000 MCG TAB PO SCH (10:12)
[2017-04-29] MEDS: CALCITRIOL 0.25 MCG CAP PO SCH (10:12)
[2017-04-29] MEDS: CARVEDILOL 3.125 MG TAB PO SCH ×2 (10:12→21:27)
[2017-04-29] MEDS: CALCIUM ACETATE 667 MG CAP PO SCH ×3 (10:13→17:12)
[2017-04-29] MEDS: PANTOPRAZOLE SODIUM 40 MG VIAL IV PUSH SCH (10:14)
[2017-04-29] MEDS: methylPREDNISolone SOD SUCC 125 MG/2 ML VIAL IV PUSH SCH ×2 (10:14→21:27)
[2017-04-29] MEDS: BUMETANIDE INJ 1 MG/4 ML VIAL IV PUSH SCH ×2 (10:15→17:13)
--- NOTE | 2017-04-29 11:19 | RADRPT ---
EXAM DATE/TIME: 04/29/2017 10:38 [facility] COMPARISON: CT ABDOMEN & PELVIS W/O CONTRAST, April 26, 2017, 11:16. INDICATIONS : Right abdomen pain. ORAL CONTRAST: No oral contrast ingested. RADIATION DOSE: 14.99 CTDIvol (mGy) MEDICAL HISTORY : Hypertension. SURGICAL HISTORY : Appendectomy. ENCOUNTER: Initial ACUITY: 1 day PAIN SCALE: 5/10 LOCATION: Right abdomen TECHNIQUE: Volumetric scanning of the abdomen and pelvis was performed. Using automated exposure control and ad justment of the mA and/or kV according to patient size, radiation dose was kept as low as reasonably achievable to obtain optimal diagnostic quality images. DICOM format image data is available electro nically for review and comparison. FINDINGS: Vicarious excretion of contrast is noted within the gallbladder. Renal cortices are hyperdense and a small amount of contrast is identified in the collecting systems. There is no evidence of hydronephrosis. The liver, spleen, pancreas and adrenal glands are unremarkable. Extensive diverticula are seen throughout the colon. There are no active inflammatory changes. Large right groin hematoma measuring 9.6 x 7.0 cm in size appears stable. Significant edema remains e vident within the pelvic wall stranding the hematoma and along the flanks. CONCLUSION: 1. Stable large right groin hematoma. 2. Vicarious excretion of contrast by the gallbladder and persistent contrast opacification of the ki dneys characteristic of renal insufficiency. 3. Colonic diverticulosis without evidence of active inflammatory changes. 4. No evidence of acute process in the abdomen or pelvis. Reuben Carr MD on April 29, 2017 at 11:07 Board Certified Radiologist. This report was verified electronically.
[2017-04-29] MEDS: LEVOFLOXACIN 500 MG PREMIX INJ 100 ML IV SCH (12:16)
--- NOTE | 2017-04-29 12:17 | PD.RAD ---
Post Procedure Progress Note Pre Procedure Diagnosis: (1) Complications, dialysis, catheter, mechanical (2) Chronic renal disease Post Procedure Diagnosis: (1) Chronic renal disease (2) Complications, dialysis, catheter, mechanical Procedure Date: Apr 29, 2017 Supervising Radiologist: Stoney Morrow Proceduralist/Assist: Tylor Sidhu, RT(R), Tina Lan RT(R) Anesthesia: Local Plan of Activity Patient to Unit: Nursing Unit Patient Condition: Fair See PACS Report for procedural detail/treatment Central Venous Access Device Procedure 1 Right Internal Jugular Hemodialysis Catheter Non-Tunneled Reposition, Exchange single lumen [place]: 14 PICC Line Length (cm): 20 Stoney Morrow MD Apr 29, 2017 12:17
--- NOTE | 2017-04-29 15:06 | HHI.NPPN ---
Subjective Renal Failure: Chronic, Acute, Stage IV Review of Systems General Constitutional: Fatigue Respiratory Lungs: SOB Cardiovascular Cardiac: Edema, HAIR Objective Data Data Vital Signs Date Time Temp Pulse Resp B/P (MAP) Pulse Ox O2 Delivery O2 Flow Rate FiO2 04/29/17 14:27 Nasal Cannula 2.00 04/29/17 14:00 82 04/29/17 14:00 20 04/29/17 13:00 80 04/29/17 12:00 83 04/29/17 12:00 97.8 75 20 123/60 (81) 96 04/29/17 11:00 77 04/29/17 09:00 80 04/29/17 08:00 98.6 75 19 125/63 (83) 91 04/29/17 08:00 80 04/29/17 08:00 91 Room Air 04/29/17 07:13 75 04/29/17 07:00 76 04/29/17 05:00 70 04/29/17 04:00 74 04/29/17 03:00 98.2 72 18 154/85 (108) 99 04/29/17 03:00 98 Nasal Cannula 2.00 04/29/17 03:00 75 04/29/17 02:00 74 04/29/17 01:00 70 04/29/17 00:00 70 04/28/17 23:13 98.2 71 18 142/59 (86) 95 04/28/17 23:00 70 04/28/17 22:00 68 04/28/17 21:00 68 04/28/17 20:00 72 04/28/17 19:01 98 Nasal Cannula 2.00 04/28/17 19:00 98.2 76 18 145/67 (93) 97 04/28/17 19:00 70 04/28/17 19:00 90 Room Air 04/28/17 16:34 93 Nasal Cannula 2.00 -: 04/29/17 0745 04/29/17 0745 Microbiology 04/29/17 Stool Occult Blood (CHUCK), Received Pending Tubes & Lines: Vas-Cath, Adan Physical Exam General Appearance: Well Developed, Well Nourished, No Acute Distress, Comfortable Eyes Eye Exam: Pupils Equal Throat Throat Exam: Oral Mucosa [place] & Moist Neck Neck Exam: Neck Supple Pulmonary Resp Exam: No Distress, Crackles, Rhonchi, Sputum, Decreased Bases, Diminished Breath Sounds Cardiology CV Exam: Regular, Normal Sinus Rhythm, Good Perfusion Gastrointestinal/Abdomen GI Exam: Soft, Non-Tender, Bowel Sounds Present Genitourinary Exam: Clear Urine Musculoskeletal MS Exam: Joints Intact, Normal Tone, Good Strength Integumentary Skin Exam: Clear, Warm, Dry, Intact Extremeties Extremities Exam: Pedal Pulses Palpable, Trace Edema, Pitting Edema Neurologic Neuro Exam: Alert, Awake, Oriented, Speech Clear, Moving All Extremities Psychiatric Psych Exam: Appropriate Responses Assessment/Plan Discussed Condition With: Patient Assessment Summary: LEEANN/Acute Renal Failure, [place] Hyperparathyroid, Proteinuria, Hypertension, Diabetes Mellitus, CKD Stage IV Electrolyte Assessment: Hypocalcemia Problem List: (1) Acute on chronic kidney failure ICD Codes: N17.9 - Acute kidney failure, unspecified; N18.9 - Chronic kidney disease, unspecified Status: Acute Plan: She has advanced renal disease, Creatinine 2.8 at baseline, CKD 4 Suspected underlying diabetic nephropathy, heavy proteinuria in the past All serologies normal; SPEP and urine immunofixation also normal LEEANN likely due to NSTEMI and decreased renal perfusion HD initiated on 04/22 Needs Permcath placed October repeat HD Monday Dr. Corral to follow (2) NSTEMI (non-ST elevated myocardial infarction) ICD Codes: I21.4 - Non-ST elevation (NSTEMI) myocardial infarction Status: Acute Plan: Cardiology is following Off heparin gtt due to bleeding 2D echo: LVH, EF 45-50% s/p cardiac catheterization with multivessel disease; CABG cancelled s/p cath today, repeat on Monday (3) DM2 (diabetes mellitus, type 2) ICD Codes: E11.9 - Type 2 diabetes mellitus without complications Status: Chronic Plan: Insulin as needed to maintain glucose of 140-180 mg/dL while hospitalized (4) Metabolic bone disease ICD Codes: E88.9 - Metabolic disorder, unspecified; M90.80 - Osteopathy in diseases classified elsewhere, unspecified site Plan: Continue Calcium acetate Start calcitriol for secondary hyperparathyroidism (5) Hyperkalemia ICD Codes: E87.5 - Hyperkalemia; N18.9 - Chronic kidney disease, unspecified Status: Resolved Plan: Due to reduction in GFR and metabolic acidosis Improved with dialysis, monitor for recurrence (6) Metabolic acidosis ICD Codes: E87.2 - Acidosis Status: Acute Plan: Corrected Follow metabolic profile (7) COPD with acute exacerbation ICD Codes: J44.1 - Chronic obstructive pulmonary disease with (acute) exacerbation Plan: On nebulizers, oxygen She is also on Levaquin and solumedrol (8) Anemia ICD Codes: D64.9 - Anemia, unspecified Status: Acute Plan: Improved after [address] abd/pelvis confirmed hematoma, off anticoagulation, monitor Problem Qualifiers (1) Acute on chronic kidney failure: Qualified Codes: N17.9 - Acute kidney failure, unspecified; N18.9 - Chronic kidney disease, unspecified (2) DM2 (diabetes mellitus, type 2): (3) Anemia: Qualified Codes: D64.9 - Anemia, unspecified Carlo Petit MD Apr 29, 2017 15:06
[2017-04-29] MEDS: ATORVASTATIN 10 MG TAB PO SCH (21:27)
[2017-04-29] MEDS: oxyCODONE/ACETAMINOPHEN 10 MG/325 MG TAB PO PRN (21:27)
[2017-04-30] VITALS (28 sets, daily range): BP systolic 151–190; BP diastolic 67–82; PULSE 60–93; RESP 16–18; TEMP 97.7–98.7; O2SAT 93–95
[2017-04-30 00:11] LABS: HEMATOCRIT 28.8 % (35.0-46.0); MEAN CORPUSCULAR HEMOGLOBIN 30.4 PG (27.0-34.0); MEAN CORPUSCULAR HGB CONC 34.1 % (32.0-36.0); PLATELET COUNT 108 TH/MM3 (150-450); RED BLOOD COUNT 3.24 MIL/MM3 (4.00-5.30); RED CELL DISTRIBUTION WIDTH 15.9 % (11.6-17.2); REVIEW FLAG FINAL; WHITE BLOOD COUNT 15.3 TH/MM3 (4.0-11.0)
[2017-04-30] MEDS: hydrALAZINE HCL 20 MG/ML VIAL IV PUSH PRN ×2 (00:25→21:02)
[2017-04-30] MEDS: INSULIN ASPART SUPPLEMENTAL SCALE SQ SCH ×6 (00:25→21:03)
[2017-04-30] MEDS: TEMAZEPAM 15 MG CAP PO PRN ×2 (00:31→23:02)
[2017-04-30] MEDS: LEVOTHYROXINE SODIUM 50 MCG TAB PO SCH (05:16)
[2017-04-30] MEDS: oxyCODONE/ACETAMINOPHEN 10 MG/325 MG TAB PO PRN ×4 (05:17→18:36)
[2017-04-30 08:00] LABS: APTT (PATIENT) 22.6 SEC (24.3-30.1)
[2017-04-30 08:18] LABS: BICARBONATE 24.7 MEQ/L (21.0-32.0)
[2017-04-30 08:19] LABS: POTASSIUM 4.4 MEQ/L (3.5-5.1)
--- NOTE | 2017-04-30 08:33 | HHI.FPPN ---
Subjective Remarks Patient seen and examined this morning. Temperature 97.9, pulse 70, respiratory 18, blood pressure 152/74. She reports that her pain in her right lower quadrant is improved. Since receiving blood she is feeling better today than she did yesterday. She understands that her bleeding is due to her heparin which is necessary to help with her current NSTEMI status. She denies any chest pain or shortness of breath. She understands the plan of care is for catheter lab on Monday followed by dialysis. Objective Vitals Vital Signs Date Time Temp Pulse Resp B/P (MAP) Pulse Ox O2 Delivery O2 Flow Rate FiO2 04/30/17 08:00 97.9 70 18 152/74 (100) 04/30/17 06:03 64 04/30/17 05:05 64 04/30/17 04:37 97.7 71 151/67 (95) 94 04/30/17 04:00 64 04/30/17 03:35 70 04/30/17 02:00 78 04/30/17 01:00 76 04/30/17 00:00 98.7 68 190/82 (118) 95 04/30/17 00:00 70 04/29/17 23:00 69 04/29/17 22:00 74 04/29/17 21:23 93 21 04/29/17 21:00 76 04/29/17 20:00 Room Air 04/29/17 20:00 98.5 81 164/80 (108) 96 04/29/17 20:00 76 04/29/17 19:00 78 04/29/17 18:21 75 19 161/73 95 04/29/17 18:00 98.7 82 20 171/78 98 04/29/17 18:00 82 04/29/17 17:36 74 20 143/68 95 04/29/17 17:30 99.0 74 19 150/70 94 04/29/17 17:00 79 04/29/17 16:45 74 17 144/72 95 04/29/17 16:10 98.7 75 16 144/67 97 04/29/17 16:00 75 04/29/17 16:00 98.7 75 16 144/67 (92) 97 04/29/17 15:45 98.0 76 20 143/67 98 04/29/17 15:30 98.8 73 19 139/65 96 04/29/17 15:15 98.7 78 20 146/66 95 04/29/17 15:00 73 04/29/17 14:56 99.2 76 20 140/66 96 04/29/17 14:27 Nasal Cannula 2.00 04/29/17 14:00 82 04/29/17 14:00 20 04/29/17 13:00 80 04/29/17 12:00 83 04/29/17 12:00 97.8 75 20 123/60 (81) 96 04/29/17 11:00 77 04/29/17 09:00 80 I/O 04/29/17 04/29/17 04/29/17 04/30/17 04/30/17 04/30/17 07:00 15:00 23:00 07:00 15:00 23:00 Intake Total 1180 ml 570 ml Output Total 700 ml Balance 1180 ml -130 ml Intake Oral 570 ml IV Total 400 ml Packed Cells 750 ml Blood Product IV Normal Saline Flush 30 ml Output Urine Total 700 ml # Voids 1 2 # Bowel Movements 1 Result Diagram: 04/29/17 2325 04/30/17 0615 Imaging Last Impressions Abdomen/Pelvis CT 04/29/17 0000 Signed Impressions: Service Date/Time: Saturday, April 29, 2017 10:38 - CONCLUSION: 1. Stable large right groin hematoma. 2. Vicarious excretion of contrast by the gallbladder and persistent contrast opacification of the kidneys characteristic of renal insufficiency. 3. Colonic diverticulosis without evidence of active inflammatory changes. 4. No evidence of acute process in the abdomen or pelvis. Reuben Carr MD Catheter Placement X-Ray 04/28/17 0000 Signed Impressions: Service Date/Time: Friday, April 28, 2017 16:14 - CONCLUSION: Uncomplicated venous catheter change as above. Stoney Morrow MD Lower Extremity Ultrasound 04/26/17 0000 Signed Impressions: Service Date/Time: Wednesday, April 26, 2017 14:24 - CONCLUSION: Large groin hematoma. No evidence of pseudoaneurysm Keegan Cedeno MD Chest X-Ray 04/22/17 0600 Signed Impressions: Service Date/Time: Saturday, April 22, 2017 02:19 - CONCLUSION: No acute cardiopulmonary disease identified. Trevor Townsend MD Renal Ultrasound 04/21/17 0000 Signed Impressions: Service Date/Time: Friday, April 21, 2017 17:11 - CONCLUSION: Stone in the lateral left kidney. No evidence of hydronephrosis or solid mass. No evidence of obstruction. Kirill Linder MD Objective Remarks General: Resting in bed in no acute distress with daughter at bedside. Large hematoma at left catheter site Skin: Warm and dry. bruising on left chest and other scattered bruises R ABD: Large hematoma from the right lower quadrant to pelvic area secondary to heart catheterization procedure. No pseudoaneurysm per CT. HEENT: Atraumatic, normocephalic with EOMI. MMM. No rhinorrhea. No JVD or LAD appreciated. CV: Regular rhythm with no MGR. 2+ pulses in all 4 extremities. Lungs:mild wheezing bilaterally with no CRW. Decreased air movement overall. No increased work of breathing. Abdomen: Soft, nontender, non-distended with positive bowel sounds. No masses appreciated. MSK: Not assessed at this exam- previously right third toe amputated, no swelling or tenderness Neuro: Awake, alert. Grossly normal CN. No peripheral motor/sensory defects appreciated. Procedures Vascath 04/22/17 Initiate hemodialysis 04/22/17 Catheterization and stent placement on 04/28/17 Medications and IVs Current Medications Medications (Trade) Dose Ordered Sig/Des Route Start Time Stop Time Status Last Admin (NS Flush) 2 ml UNSCH PRN IV FLUSH 04/21/17 06:45 04/27/17 14:10 (NS Flush) 2 ml BID IV FLUSH 04/21/17 09:00 04/29/17 21:00 (Protonix Inj) 40 mg DAILY IV PUSH 04/21/17 09:00 04/29/17 10:14 (Duoneb Neb) 1 ampule Q4HR NEB PRN INH 04/21/17 06:45 Miscellaneous Information 1 Q361D XX 04/21/17 06:45 (Chlorhexidine 2% Cloth) Taper DAILY@04 TOP 04/22/17 04:00 04/18/18 03:59 04/27/17 00:35 (Chlorhexidine 2% Cloth) 3 pack UNSCH PRN TOP 04/21/17 06:45 (Malaika-Colace) 1 tab BID PO 04/21/17 09:00 04/29/17 21:27 (Milk Of Magnesia Liq) 30 ml Q12H PRN PO 04/21/17 06:45 (Senokot) 17.2 mg Q12H PRN PO 04/21/17 06:45 (Dulcolax Supp) 10 mg DAILY PRN RECTAL 04/21/17 06:45 (Lactulose Liq) 30 ml DAILY PRN PO 04/21/17 06:45 (Aspirin Chew) 81 mg DAILY CHEW 04/22/17 09:00 04/29/17 10:10 (Coreg) 3.125 mg Q12HR PO 04/21/17 09:00 04/29/17 21:27 (Lipitor) 10 mg HS PO 04/21/17 21:00 04/29/17 21:27 (Vitamin B12) 500 mcg DAILY PO 04/21/17 09:00 04/29/17 10:12 (Synthroid) 50 mcg DAILY@0600 PO 04/21/17 07:00 04/30/17 05:16 (NovoLOG SUPPLEMENTAL SCALE) 1 Q4HR SQ 04/21/17 08:00 04/30/17 05:17 (SoluMEDROL INJ) 60 mg Q12HR IV PUSH 04/21/17 11:30 04/29/17 21:27 Levofloxacin/ Dextrose 100 ml @ 100 mls/hr Q48H IV 04/21/17 12:00 04/29/17 12:16 (Restoril) 15 mg HS PRN PO 04/21/17 20:45 04/30/17 00:31 Sodium Chloride 1,000 ml @ 0 mls/hr Q0M PRN OTHER 04/22/17 14:04 (Heparin Inj) 8,000 units UNSCH PRN IV FLUSH 04/22/17 14:15 04/28/17 19:06 Sodium Chloride 1,000 ml @ 200 mls/hr Q5H PRN IV 04/22/17 14:04 Sodium Chloride 1,000 ml @ 0 mls/hr Q0M PRN OTHER 04/22/17 14:04 (Mannitol Inj) 12.5 gm UNSCH PRN IV 04/22/17 14:15 Albumin Human 100 ml @ 60 mls/hr UNSCH PRN IV 04/22/17 14:15 04/28/17 19:07 (NS Flush) 5 ml UNSCH PRN IV FLUSH 04/22/17 14:15 (Heparin Inj) UNSCH PRN .XX 04/22/17 14:15 (Gentamicin (Dialysis) Inj) 20 mg UNSCH PRN OTHER 04/22/17 14:15 04/28/17 19:06 (Zofran Inj) 4 mg UNSCH PRN IV PUSH 04/22/17 14:15 (Tylenol) 650 mg UNSCH PRN PO 04/22/17 14:15 04/25/17 12:21 (Benadryl) 25 mg UNSCH PRN PO 04/22/17 14:15 (Nitrostat Sl) 0.4 mg UNSCH PRN SL 04/22/17 14:15 (Catapres) 0.1 mg UNSCH PRN PO 04/22/17 14:15 04/27/17 22:31 (Gelfoam 12 Mm/7 Mm Top) 1 foam UNSCH PRN TOP 04/22/17 14:15 (Apresoline Inj) 10 mg Q30M PRN IV PUSH 04/23/17 13:15 04/30/17 00:25 (Phoslo) 2,001 mg TID PO 04/23/17 18:00 04/29/17 17:12 (Rocaltrol) 0.25 mcg DAILY PO 04/24/17 09:15 04/29/17 10:12 (Atropine Inj) 0.5 mg UNSCH PRN IV PUSH 04/24/17 10:00 (NS Flush) 2 ml BID IV FLUSH 04/24/17 21:00 04/28/17 20:42 (NS Flush) 2 ml UNSCH PRN IV FLUSH 04/24/17 15:45 (Lopressor) 12.5 mg CHIEF PSYCHOLOGIST PO 04/24/17 15:45 05/01/17 15:44 (Hibiclens 4% Top Soln) 1 applic CHIEF PSYCHOLOGIST TOPICAL 04/24/17 15:45 05/01/17 15:44 (D50w (Vial) Inj) 50 ml UNSCH PRN IV PUSH 04/24/17 15:45 (Morphine Inj) 2 mg Q3H PRN IV PUSH 04/26/17 09:30 04/29/17 13:33 (Bumex Inj) 2 mg BID@09,18 IV PUSH 04/26/17 20:45 04/29/17 17:13 (Brilinta) 90 mg BID PO 04/29/17 09:00 04/29/17 21:29 (Percocet 5-325 Mg) 1 tab Q4H PRN PO 04/29/17 13:30 (Percocet 10-325 Mg) 1 tab Q4H PRN PO 04/29/17 13:30 04/30/17 05:17 A/P Assessment and Plan 61 yo female with NSTEMI, acute COPD exacerbation, acute renal failure with chronic renal disease requiring hemodialysis. 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 Cardiology and nephrology on board; receiving dialysis. 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 Discharge Planning Pending clinical course. Patient currently scheduled for cardiac catheterization with stenting on Monday in order to decrease contrast load as she is in acute renal failure. Patient to receive dialysis per nephrology schedule. Problem List: (1) NSTEMI (non-ST elevated myocardial infarction) ICD Codes: I21.4 - Non-ST elevation (NSTEMI) myocardial infarction Status: Acute Plan: Impression: Troponin elevated at admission along with atypical chest pain. Non-specific ST-T wave changes on initial EKG's. ECHO with EF of 45-50% - Cardiology consulted -Heparin drip initiated per Cardiology -d/c due to hematoma and anemia - Continue aspirin 81 mg daily - Continue Lipitor 10 mg qHS - Continue Coreg 3.125 mg bid -s/p Catheterization per Dr. Cole 04/24/2017 -NSTEMI, multivessel coronary disease, new cardiomyopathy with EF 45-50% -had cardiac catheterization and stenting on 04/28/17 and scheduled for Monday05/01/70 for multivessel disease in order to decrease contrast burden as patient is in renal failure -CT surgery consulted -Patient not a candidate for surgery currently due to renal failure, hematoma , and anemia (2) Acute on chronic kidney failure ICD Codes: N17.9 - Acute kidney failure, unspecified; N18.9 - Chronic kidney disease, unspecified Status: Acute Plan: Nephrology consulted -S/P Dialysis 04/22 and 04/24; continue dialysis per nephrology recommendations -Monitor electrolytes - ANCA, SPEP, UPEP pending -IVF per Nephrology -Continue to monitor urine output, electrolytes - Avoid nephrotoxic agents, contrast agents She is making more and more urine which is a great sign that she can hope for some recovery and be able to stop dialysis at some point Impression: Has a history of diabetes with diabetic nephropathy. Has proteinuria and oliguria with acute decrease in renal function. Her baseline creatinine is about 2.8, now with doubling of creatinine. Also with hyperkalemia and metabolic acidosis. Etiology includes chronic kidney disease with acute exacerbation possibly from poor cardiac output with NSTEMI. Renal ultrasound showing no obstruction, has stone that is non-obstructing Complement negative MIGUE negative Hepatitis profile negative (3) Anemia ICD Codes: D64.9 - Anemia, unspecified Status: Acute Plan: -Status post transfusion of 2 units packed red blood cells on 04/29/17. Posttransfusion H&H improved to 9.8/28.8 respectively. -H&H pending for this a.m. acute decrease we will transfuse packed red blood cells once more -Discussed with Cardiology; Heparin was stopped, but she needs it for procedures so may get more anemia -CT abdomen and pelvis 04/26: Right inguinal and right lower quadrant abdominal wall hematoma measuring 8.8 cm. Subcutaneous inflammatory changes which extend into the mons pubis region. Bilateral flank edema. Nonacute findings include small left pleural effusion, severe atherosclerotic disease, and sigmoid diverticulosis. No pseudoaneurysm. -Repeat CT abdomen and pelvis on 04/29: Unchanged from previous CT abdomen -Vascular surgery consulted -No surgical intervention needed at this time -Cleared from a vascular standpoint 04/27 (4) COPD (chronic obstructive pulmonary disease) ICD Codes: J44.9 - Chronic obstructive pulmonary disease, unspecified Status: Chronic Plan: History of COPD with recent upper respiratory symptoms and acute exacerbation, recently diagnosed with pneumonia while on cruise ship and was started on azithromycin. - IV Solumedrol 60 mg q12hrs started 04/21 - DuoNebs q6hrs scheduled - Levaquin empirically, renally dosed, started 04/22 Q48H - O2 supplementation with target O2 90% (5) Hyperkalemia ICD Codes: E87.5 - Hyperkalemia; N18.9 - Chronic kidney disease, unspecified Status: Resolved Plan: Hyperkalemia up to 6.0 with acute renal failure. Resolved with hemodialysis. - Continue management per nephrology (6) Hyponatremia ICD Codes: E87.1 - Hypo-osmolality and hyponatremia Status: Resolved Plan: Hyponatremia with acute renal failure, asymptomatic, resolved at this time. - IV fluids per nephrology - Monitor electrolytes - Hemodialysis per nephrology (7) DM2 (diabetes mellitus, type 2) ICD Codes: E11.9 - Type 2 diabetes mellitus without complications Status: Chronic Plan: History of diabetes type II - Sliding scale insulin with glucose goal of 140-180 (8) HTN (hypertension) ICD Codes: I10 - HTN (hypertension) Status: Chronic Plan: Impression: Mild hypertension during hospitalization with SBP 140s-160 - Continue carvedilol 3.125 bid -Will plan for dosage increase if persistent (9) Hypothyroidism ICD Codes: E03.9 - Hypothyroidism, unspecified Status: Chronic Plan: TSH normal - Levothyroxine 50 mcg daily (10) DVT Prophylaxis Status: Acute Plan: Heparin drip discontinued due to anemia/ suspected active bleeding (11) Secondary hyperparathyroidism (of renal origin) ICD Codes: N25.81 - Secondary hyperparathyroidism of renal origin Status: Acute Plan: Patient with secondary hyperparathyroidism with significantly elevated phosphate and low calcium. Intact PTH 364.5 1,25 OH Vit D pending - Dietary phosphate restriction to 900 mg/day -Consider PhosLo -Management per Nephrology (12) Nutrition, metabolism, and development symptoms ICD Codes: R63.8 - Other symptoms and signs concerning food and fluid intake Status: Acute Plan: Heart healthy diet IV fluids per nephrology Phosphate restriction 900 mg/day for hyperphosphatemia Hyponatremia, hyperkalemia initially Receiving dialysis per nephrology Acute renal failure with CKD, monitor renal function Protonix IV 40 mg daily Problem Qualifiers (1) Acute on chronic kidney failure: Qualified Codes: N17.9 - Acute kidney failure, unspecified; N18.9 - Chronic kidney disease, unspecified (2) Anemia: Qualified Codes: D64.9 - Anemia, unspecified (3) DM2 (diabetes mellitus, type 2): (4) HTN (hypertension): Qualified Codes: I10 - Essential (primary) hypertension (5) Hypothyroidism: Qualified Codes: E03.9 - Hypothyroidism, unspecified Balaji Cordova MD, R3 Apr 30, 2017 08:33
[2017-04-30 08:39] LABS: AUTOMATED NEUTROPHIL # 14.2 TH/MM3 (1.8-7.7); BASOPHIL % 0.3 % (0.0-2.0); EOSINOPHIL % 0.1 % (0.0-4.0); HEMATOCRIT 29.3 % (35.0-46.0); HEMO FLAGS DIFF FINAL; LYMPH % 2.4 % (9.0-44.0); LYMPHOCYTE # 0.4 TH/MM3 (1.0-4.8); MEAN CELL VOLUME 89.4 FL (80.0-100.0); MEAN CORPUSCULAR HGB CONC 34.7 % (32.0-36.0); NEUT % 92.2 % (16.0-70.0); PLATELET COUNT 110 TH/MM3 (150-450); RED BLOOD COUNT 3.27 MIL/MM3 (4.00-5.30); RED CELL DISTRIBUTION WIDTH 16.1 % (11.6-17.2); WHITE BLOOD COUNT 15.4 TH/MM3 (4.0-11.0)
[2017-04-30] MEDS: SODIUM CHLORIDE 0.9% FLUSH 10 ML FLUSH IV FLUSH SCH ×3 (09:00→20:57)
[2017-04-30] MEDS: DOCUSATE SODIUM 50 MG/SENNA 8.6 MG TAB PO SCH ×2 (09:02→20:57)
[2017-04-30] MEDS: ASPIRIN 81 MG CHEW TAB CHEW SCH (09:03)
[2017-04-30] MEDS: CALCIUM ACETATE 667 MG CAP PO SCH ×3 (09:03→18:28)
[2017-04-30] MEDS: CALCITRIOL 0.25 MCG CAP PO SCH (09:03)
[2017-04-30] MEDS: CYANOCOBALAMIN 1,000 MCG TAB PO SCH (09:03)
[2017-04-30] MEDS: CARVEDILOL 3.125 MG TAB PO SCH ×2 (09:03→20:57)
[2017-04-30] MEDS: BUMETANIDE INJ 1 MG/4 ML VIAL IV PUSH SCH ×2 (09:04→18:29)
[2017-04-30] MEDS: TICAGRELOR 90 MG TAB PO SCH ×2 (09:04→20:57)
[2017-04-30] MEDS: PANTOPRAZOLE SODIUM 40 MG VIAL IV PUSH SCH (09:16)
--- NOTE | 2017-04-30 09:16 | PD.CARD.PN ---
Subjective Subjective Remarks No CV complaints Very tender on right groin, Big right side hematoma s/p PRBCS Stable HR and BP Objective Medications Current Medications Medications (Trade) Dose Ordered Sig/Des Route Start Time Stop Time Status Last Admin (NS Flush) 2 ml UNSCH PRN IV FLUSH 04/21/17 06:45 04/27/17 14:10 (NS Flush) 2 ml BID IV FLUSH 04/21/17 09:00 04/30/17 09:05 (Protonix Inj) 40 mg DAILY IV PUSH 04/21/17 09:00 04/29/17 10:14 (Duoneb Neb) 1 ampule Q4HR NEB PRN INH 04/21/17 06:45 Miscellaneous Information 1 Q361D XX 04/21/17 06:45 (Chlorhexidine 2% Cloth) Taper DAILY@04 TOP 04/22/17 04:00 04/18/18 03:59 04/27/17 00:35 (Chlorhexidine 2% Cloth) 3 pack UNSCH PRN TOP 04/21/17 06:45 (Malaika-Colace) 1 tab BID PO 04/21/17 09:00 04/30/17 09:02 (Milk Of Magnesia Liq) 30 ml Q12H PRN PO 04/21/17 06:45 (Senokot) 17.2 mg Q12H PRN PO 04/21/17 06:45 (Dulcolax Supp) 10 mg DAILY PRN RECTAL 04/21/17 06:45 (Lactulose Liq) 30 ml DAILY PRN PO 04/21/17 06:45 (Aspirin Chew) 81 mg DAILY CHEW 04/22/17 09:00 04/30/17 09:03 (Coreg) 3.125 mg Q12HR PO 04/21/17 09:00 04/30/17 09:03 (Lipitor) 10 mg HS PO 04/21/17 21:00 04/29/17 21:27 (Vitamin B12) 500 mcg DAILY PO 04/21/17 09:00 04/30/17 09:03 (Synthroid) 50 mcg DAILY@0600 PO 04/21/17 07:00 04/30/17 05:16 (NovoLOG SUPPLEMENTAL SCALE) 1 Q4HR SQ 04/21/17 08:00 04/30/17 05:17 (SoluMEDROL INJ) 60 mg Q12HR IV PUSH 04/21/17 11:30 04/29/17 21:27 Levofloxacin/ Dextrose 100 ml @ 100 mls/hr Q48H IV 04/21/17 12:00 04/29/17 12:16 (Restoril) 15 mg HS PRN PO 04/21/17 20:45 04/30/17 00:31 Sodium Chloride 1,000 ml @ 0 mls/hr Q0M PRN OTHER 04/22/17 14:04 (Heparin Inj) 8,000 units UNSCH PRN IV FLUSH 04/22/17 14:15 04/28/17 19:06 Sodium Chloride 1,000 ml @ 200 mls/hr Q5H PRN IV 04/22/17 14:04 Sodium Chloride 1,000 ml @ 0 mls/hr Q0M PRN OTHER 04/22/17 14:04 (Mannitol Inj) 12.5 gm UNSCH PRN IV 04/22/17 14:15 Albumin Human 100 ml @ 60 mls/hr UNSCH PRN IV 04/22/17 14:15 04/28/17 19:07 (NS Flush) 5 ml UNSCH PRN IV FLUSH 04/22/17 14:15 (Heparin Inj) UNSCH PRN .XX 04/22/17 14:15 (Gentamicin (Dialysis) Inj) 20 mg UNSCH PRN OTHER 04/22/17 14:15 04/28/17 19:06 (Zofran Inj) 4 mg UNSCH PRN IV PUSH 04/22/17 14:15 (Tylenol) 650 mg UNSCH PRN PO 04/22/17 14:15 04/25/17 12:21 (Benadryl) 25 mg UNSCH PRN PO 04/22/17 14:15 (Nitrostat Sl) 0.4 mg UNSCH PRN SL 04/22/17 14:15 (Catapres) 0.1 mg UNSCH PRN PO 04/22/17 14:15 04/27/17 22:31 (Gelfoam 12 Mm/7 Mm Top) 1 foam UNSCH PRN TOP 04/22/17 14:15 (Apresoline Inj) 10 mg Q30M PRN IV PUSH 04/23/17 13:15 04/30/17 00:25 (Phoslo) 2,001 mg TID PO 04/23/17 18:00 04/30/17 09:03 (Rocaltrol) 0.25 mcg DAILY PO 04/24/17 09:15 04/30/17 09:03 (Atropine Inj) 0.5 mg UNSCH PRN IV PUSH 04/24/17 10:00 (NS Flush) 2 ml BID IV FLUSH 04/24/17 21:00 04/28/17 20:42 (NS Flush) 2 ml UNSCH PRN IV FLUSH 04/24/17 15:45 (Lopressor) 12.5 mg BILINGUAL MEDICAL ASSISTANT PO 04/24/17 15:45 05/01/17 15:44 (Hibiclens 4% Top Soln) 1 applic BILINGUAL MEDICAL ASSISTANT TOPICAL 04/24/17 15:45 05/01/17 15:44 (D50w (Vial) Inj) 50 ml UNSCH PRN IV PUSH 04/24/17 15:45 (Morphine Inj) 2 mg Q3H PRN IV PUSH 04/26/17 09:30 04/29/17 13:33 (Bumex Inj) 2 mg BID@18 IV PUSH 04/26/17 20:45 04/30/17 09:04 (Brilinta) 90 mg BID PO 04/29/17 09:00 04/30/17 09:04 (Percocet 5-325 Mg) 1 tab Q4H PRN PO 04/29/17 13:30 (Percocet 10-325 Mg) 1 tab Q4H PRN PO 04/29/17 13:30 04/30/17 05:17 Vital Signs / I&O Vital Signs Date Time Temp Pulse Resp B/P (MAP) Pulse Ox O2 Delivery O2 Flow Rate FiO2 04/30/17 08:00 97.9 70 18 152/74 (100) 04/30/17 06:03 64 04/30/17 05:05 64 04/30/17 04:37 97.7 71 151/67 (95) 94 04/30/17 04:00 64 04/30/17 03:35 70 04/30/17 02:00 78 04/30/17 01:00 76 04/30/17 00:00 98.7 68 190/82 (118) 95 04/30/17 00:00 70 04/29/17 23:00 69 04/29/17 22:00 74 04/29/17 21:23 93 21 04/29/17 21:00 76 04/29/17 20:00 Room Air 04/29/17 20:00 98.5 81 164/80 (108) 96 04/29/17 20:00 76 04/29/17 19:00 78 04/29/17 18:21 75 19 161/73 95 04/29/17 18:00 98.7 82 20 171/78 98 04/29/17 18:00 82 04/29/17 17:36 74 20 143/68 95 04/29/17 17:30 99.0 74 19 150/70 94 04/29/17 17:00 79 04/29/17 16:45 74 17 144/72 95 04/29/17 16:10 98.7 75 16 144/67 97 04/29/17 16:00 75 04/29/17 16:00 98.7 75 16 144/67 (92) 97 04/29/17 15:45 98.0 76 20 143/67 98 04/29/17 15:30 98.8 73 19 139/65 96 04/29/17 15:15 98.7 78 20 146/66 95 04/29/17 15:00 73 04/29/17 14:56 99.2 76 20 140/66 96 04/29/17 14:27 Nasal Cannula 2.00 04/29/17 14:00 82 04/29/17 14:00 20 04/29/17 13:00 80 04/29/17 12:00 83 04/29/17 12:00 97.8 75 20 123/60 (81) 96 04/29/17 11:00 77 I/O 04/29/17 04/29/17 04/29/17 04/30/17 04/30/17 04/30/17 07:00 15:00 23:00 07:00 15:00 23:00 Intake Total 1180 ml 570 ml Output Total 700 ml Balance 1180 ml -130 ml Intake Oral 570 ml IV Total 400 ml Packed Cells 750 ml Blood Product IV Normal Saline Flush 30 ml Output Urine Total 700 ml # Voids 1 2 # Bowel Movements 1 Physical Exam GENERAL: Well-nourished, well-developed patient. SKIN: Warm and dry. HEAD: Normocephalic. EYES: No scleral icterus. No injection or drainage. NECK: Supple, trachea midline. No JVD or lymphadenopathy. CARDIOVASCULAR: Regular rate and rhythm without murmurs, gallops, or rubs. RESPIRATORY: Breath sounds equal bilaterally. No accessory muscle use. GASTROINTESTINAL: Abdomen soft, tender, nondistended. EXTREMITIES: No cyanosis, or edema. NEUROLOGICAL: Awake, alert, and oriented x 3. Non-focal. Laboratory Laboratory Tests Test 04/29/17 23:25 04/30/17 06:15 White Blood Count 15.3 TH/MM3 15.4 TH/MM3 Red Blood Count 3.24 MIL/MM3 3.27 MIL/MM3 Hemoglobin 9.8 GM/DL 10.1 GM/DL Hematocrit 28.8 % 29.3 % Mean Corpuscular Volume 89.0 FL 89.4 FL Mean Corpuscular Hemoglobin 30.4 PG 31.0 PG Mean Corpuscular Hemoglobin Concent 34.1 % 34.7 % Red Cell Distribution Width 15.9 % 16.1 % Platelet Count 108 TH/MM3 110 TH/MM3 Mean Platelet Volume 8.9 FL 9.0 FL Neutrophils (%) (Auto) 92.2 % Lymphocytes (%) (Auto) 2.4 % Monocytes (%) (Auto) 5.0 % Eosinophils (%) (Auto) 0.1 % Basophils (%) (Auto) 0.3 % Neutrophils # (Auto) 14.2 TH/MM3 Lymphocytes # (Auto) 0.4 TH/MM3 Monocytes # (Auto) 0.8 TH/MM3 Eosinophils # (Auto) 0.0 TH/MM3 Basophils # (Auto) 0.0 TH/MM3 CBC Comment DIFF FINAL Differential Comment Hematology Comments Activated Partial Thromboplast Time 22.6 SEC Blood Urea Nitrogen 113 MG/DL Creatinine 4.57 MG/DL Random Glucose 190 MG/DL Calcium Level 7.9 MG/DL Sodium Level 135 MEQ/L Potassium Level 4.4 MEQ/L Chloride Level 96 MEQ/L Carbon Dioxide Level 24.7 MEQ/L Anion Gap 14 MEQ/L Estimat Glomerular Filtration Rate 10 ML/MIN Imaging Last Impressions Abdomen/Pelvis CT 04/29/17 0000 Signed Impressions: Service Date/Time: Saturday, April 29, 2017 10:38 - CONCLUSION: 1. Stable large right groin hematoma. 2. Vicarious excretion of contrast by the gallbladder and persistent contrast opacification of the kidneys characteristic of renal insufficiency. 3. Colonic diverticulosis without evidence of active inflammatory changes. 4. No evidence of acute process in the abdomen or pelvis. Reuben Carr MD Catheter Placement X-Ray 04/28/17 0000 Signed Impressions: Service Date/Time: Friday, April 28, 2017 16:14 - CONCLUSION: Uncomplicated venous catheter change as above. Stoney Morrow MD Lower Extremity Ultrasound 04/26/17 0000 Signed Impressions: Service Date/Time: Wednesday, April 26, 2017 14:24 - CONCLUSION: Large groin hematoma. No evidence of pseudoaneurysm Keegan Cedeno MD Chest X-Ray 04/22/17 0600 Signed Impressions: Service Date/Time: Saturday, April 22, 2017 02:19 - CONCLUSION: No acute cardiopulmonary disease identified. Trevor Townsend MD Renal Ultrasound 04/21/17 0000 Signed Impressions: Service Date/Time: Friday, April 21, 2017 17:11 - CONCLUSION: Stone in the lateral left kidney. No evidence of hydronephrosis or solid mass. No evidence of obstruction. Kirill Linder MD Assessment and Plan Problem List: (1) NSTEMI (non-ST elevated myocardial infarction) ICD Codes: I21.4 - Non-ST elevation (NSTEMI) myocardial infarction Status: Acute Plan: 61 y/o F s/p PCI. Hospitalization complicated with significant right groin hematoma and renal failure requiring HD and PRBCs. Right groin unchanged and left groin nontender, no hematoma. H&H stable this AM. Plan: 1. Cont DAPT 2. Cont aggressive medical management for CAD 3. Keep NPO after midnight for PCI Dr. Cole to f/u in AM (2) Acute on chronic kidney failure ICD Codes: N17.9 - Acute kidney failure, unspecified; N18.9 - Chronic kidney disease, unspecified Status: Acute (3) HTN (hypertension) ICD Codes: I10 - HTN (hypertension) Status: Chronic (4) HLD (hyperlipidemia) ICD Codes: E78.5 - HLD (hyperlipidemia) Status: Chronic (5) Anemia ICD Codes: D64.9 - Anemia, unspecified Status: Acute Problem Qualifiers (1) Acute on chronic kidney failure: Qualified Codes: N17.9 - Acute kidney failure, unspecified; N18.9 - Chronic kidney disease, unspecified (2) HTN (hypertension): Qualified Codes: I10 - Essential (primary) hypertension (3) HLD (hyperlipidemia): Qualified Codes: E78.5 - Hyperlipidemia, unspecified (4) Anemia: Qualified Codes: D64.9 - Anemia, unspecified Kirk Tenorio MD Apr 30, 2017 09:16
[2017-04-30] MEDS: methylPREDNISolone SOD SUCC 125 MG/2 ML VIAL IV PUSH SCH ×2 (09:17→20:56)
--- NOTE | 2017-04-30 15:54 | HHI.NPPN ---
Subjective Renal Failure: Chronic, Acute, Stage IV Review of Systems General Constitutional: Fatigue Respiratory Lungs: SOB Cardiovascular Cardiac: Edema, HAIR Objective Data Data Vital Signs Date Time Temp Pulse Resp B/P (MAP) Pulse Ox O2 Delivery O2 Flow Rate FiO2 04/30/17 12:00 70 04/30/17 11:35 16 04/30/17 11:00 98.5 71 16 164/70 (101) 94 04/30/17 11:00 66 04/30/17 10:00 62 04/30/17 09:00 60 04/30/17 08:00 66 04/30/17 08:00 97.9 70 18 152/74 (100) 04/30/17 07:00 96 Room Air 04/30/17 07:00 64 04/30/17 06:03 64 04/30/17 05:05 64 04/30/17 04:37 97.7 71 151/67 (95) 94 04/30/17 04:00 64 04/30/17 03:35 70 04/30/17 02:00 78 04/30/17 01:00 76 04/30/17 00:00 98.7 68 190/82 (118) 95 04/30/17 00:00 70 04/29/17 23:00 69 04/29/17 22:00 74 04/29/17 21:23 93 21 04/29/17 21:00 76 04/29/17 20:00 Room Air 04/29/17 20:00 98.5 81 164/80 (108) 96 04/29/17 20:00 76 04/29/17 19:00 78 04/29/17 18:21 75 19 161/73 95 04/29/17 18:00 98.7 82 20 171/78 98 04/29/17 18:00 82 04/29/17 17:36 74 20 143/68 95 04/29/17 17:30 99.0 74 19 150/70 94 04/29/17 17:00 79 04/29/17 16:45 74 17 144/72 95 04/29/17 16:10 98.7 75 16 144/67 97 04/29/17 16:00 75 04/29/17 16:00 98.7 75 16 144/67 (92) 97 -: 04/30/17 0615 04/30/17 0615 Tubes & Lines: Vas-Cath, Adan Physical Exam General Appearance: Well Developed, Well Nourished, No Acute Distress, Comfortable Eyes Eye Exam: Pupils Equal Throat Throat Exam: Oral Mucosa [place] & Moist Neck Neck Exam: Neck Supple Pulmonary Resp Exam: No Distress, Crackles, Rhonchi, Sputum, Decreased Bases, Diminished Breath Sounds Cardiology CV Exam: Regular, Normal Sinus Rhythm, Good Perfusion Gastrointestinal/Abdomen GI Exam: Soft, Non-Tender, Bowel Sounds Present Genitourinary Exam: Clear Urine Musculoskeletal MS Exam: Joints Intact, Normal Tone, Good Strength Integumentary Skin Exam: Clear, Warm, Dry, Intact Extremeties Extremities Exam: Pedal Pulses Palpable, Trace Edema, Pitting Edema Neurologic Neuro Exam: Alert, Awake, Oriented, Speech Clear, Moving All Extremities Psychiatric Psych Exam: Appropriate Responses Assessment/Plan Discussed Condition With: Patient Assessment Summary: LEEANN/Acute Renal Failure, [place] Hyperparathyroid, Proteinuria, Hypertension, Diabetes Mellitus, CKD Stage IV Electrolyte Assessment: Hypocalcemia Problem List: (1) Acute on chronic kidney failure ICD Codes: N17.9 - Acute kidney failure, unspecified; N18.9 - Chronic kidney disease, unspecified Status: Acute Plan: She has advanced renal disease, Creatinine 2.8 at baseline, CKD 4 Suspected underlying diabetic nephropathy, heavy proteinuria in the past All serologies normal; SPEP and urine immunofixation also normal LEEANN likely due to NSTEMI and decreased renal perfusion HD initiated on 04/22 Needs Permcath placed creatinine is 4.5 to October repeat HD Monday Dr. Corral to follow (2) NSTEMI (non-ST elevated myocardial infarction) ICD Codes: I21.4 - Non-ST elevation (NSTEMI) myocardial infarction Status: Acute Plan: Cardiology is following Off heparin gtt due to bleeding 2D echo: LVH, EF 45-50% s/p cardiac catheterization with multivessel disease; CABG cancelled s/p cath today, repeat on Monday (3) DM2 (diabetes mellitus, type 2) ICD Codes: E11.9 - Type 2 diabetes mellitus without complications Status: Chronic Plan: Insulin as needed to maintain glucose of 140-180 mg/dL while hospitalized (4) Metabolic bone disease ICD Codes: E88.9 - Metabolic disorder, unspecified; M90.80 - Osteopathy in diseases classified elsewhere, unspecified site Plan: Continue Calcium acetate Start calcitriol for secondary hyperparathyroidism (5) Hyperkalemia ICD Codes: E87.5 - Hyperkalemia; N18.9 - Chronic kidney disease, unspecified Status: Resolved Plan: Due to reduction in GFR and metabolic acidosis Improved with dialysis, monitor for recurrence (6) Metabolic acidosis ICD Codes: E87.2 - Acidosis Status: Acute Plan: Corrected Follow metabolic profile (7) COPD with acute exacerbation ICD Codes: J44.1 - Chronic obstructive pulmonary disease with (acute) exacerbation Plan: On nebulizers, oxygen She is also on Levaquin and solumedrol (8) Anemia ICD Codes: D64.9 - Anemia, unspecified Status: Acute Plan: Improved after [address] abd/pelvis confirmed hematoma, off anticoagulation, monitor Problem Qualifiers (1) Acute on chronic kidney failure: Qualified Codes: N17.9 - Acute kidney failure, unspecified; N18.9 - Chronic kidney disease, unspecified (2) DM2 (diabetes mellitus, type 2): (3) Anemia: Qualified Codes: D64.9 - Anemia, unspecified Carlo Petit MD Apr 30, 2017 15:53
[2017-04-30] MEDS ORDERED: GLUCAGON 1 MG/ML VIAL OTHER PRN (18:15)
--- NOTE | 2017-04-30 18:28 | PD.CONS ---
HPI History of Present Illness This is a 61 year old female with multiple medical problems including DM, HTN, hypothyroidism, CKD, COPD, and anemia who presented to the emergency room for evaluation of chest pain. Cardiology was consulted and he underwent a left heart catheterization (04/24/17)----> multivessel coronary artery disease, new cardiomyopathy with EF of 45-50%. Cardiac thoracic surgery was consulted for evaluation for CABG and she was restarted on heparin, ASA/BB/statin. After the procedure, she had a drop in Hgb from 9.9/28.9 to 7.9/23.3. CT Scan at that time noted right inguinal and right lower quadrant abdominal wall hematoma measuring up to 8.8cm with surrounding subcutaneous inflammatory changes which extend into the mons pubis region. She was given 2 units of PRBC and responded appropriately, but then dropped again on 04/29 to 6.3/19.1. She was given an additional 2 units of PRBC and her H/H is now 10.1/29.3. Of note, she was found to have extensive ecchymosis to her right flank/right lower abdomen/ groin. CT scan abdomen and pelvis (04/29/17)---> Stable large right groin hematoma, vicarious excretion of contrast by the gallbladder and persistent contrast opacification of the kidneys characteristic of renal insufficiency, colonic diverticulosis without evidence of active inflammatory changes, no evidence of acute process in the abdomen or pelvis. Stool was hemoccult (+) . GI was consulted for further evaluation. She denies any nausea, vomiting, heartburn, reflux, changes in bowel habits, melena, or hematochezia. She does complain of a dull ache where she the bruising on the right flank area. The EMR reports a history of PUD. The patient does not recall ever having an ulcer before. She does have a history of nonspecific colitis and last had a colonoscopy about 2 years ago. EGD/Colonoscopy (04/21/15)--> gastritis antrum, normal duodenum, retroflexed views revealed a hiatal hernia, diverticulosis sigmoid, descending semisolid stool throughout the colon, no gross lesions seen , retroflexed views revealed medium internal hemorrhoids, external hemorrhoids, decreased sphincter tone. Pathology duodenal mucosa without significant histopathologic abnormality, mild chronic gastritis, negative for H. Pylori. It was recommended that she have a repeat colonoscopy in 3 months with consideration for a capsule endoscopy. (CruzCarole) PFSH Past Medical History COPD DM HTN Hyperlipidemia Peripheral neuropathy CKD, stage 2-3 Hx gastric ulcer in EMR- patient does not recall this Hx nonspecific colitis Diverticulosis Gastritis Hemorrhoids Past Surgical History EGD/Colonoscopy Amputation right third toe Appendectomy (CruzCarole) Coded Allergies: Sulfa (Sulfonamide Antibiotics) (Unverified Adverse Reaction, Mild, RASH, 04/21/17) sulfamethoxazole (Unverified Adverse Reaction, Mild, Rash, 04/21/17) trimethoprim (Unverified Adverse Reaction, Mild, Rash, 04/21/17) Medications Allergies Coded Allergies Type Severity Reaction Last Updated Verified Sulfa (Sulfonamide Antibiotics) Adverse Reaction Mild RASH 04/21/17 No sulfamethoxazole Adverse Reaction Mild Rash 04/21/17 No trimethoprim Adverse Reaction Mild Rash 04/21/17 No Active Scripts Medications Dose Route/Sig Max Daily Dose Days Date Category Dose Instructions Zithromax Z-Caleb (Azithromycin) 250 Mg Dspk 250 Mg PO DIRECTED 04/18/17 Rx 500 MG (2 tabs) day 1, then 1 tab days 2-5. Tessalon Perles (Benzonatate) 100 Mg Cap 200 Mg PO TID PRN 04/18/17 Rx Guaiatussin AC Liquid (Codeine Phosphate/Guaifenesin) 10 Mg-100 Mg/5 Ml (5 Ml) Liquid 10 Ml PO HS 04/18/17 Rx Ciprofloxacin (Ciprofloxacin HCl) 500 Mg Tab 500 Mg PO BID 03/15/17 Rx Amlodipine (Amlodipine Besylate) 5 Mg Tab 5 Mg PO DAILY 03/10/17 Rx Glipizide 5 Mg Tab 5 Mg PO DAILY 03/02/17 Rx Take 30 minutes before a meal Lipitor (Atorvastatin Calcium) 20 Mg Tab 20 Mg PO DAILY 11/23/16 Rx Synthroid (Levothyroxine Sodium) 50 Mcg Tab 50 Mcg PO DAILY 11/23/16 Rx Vitamin B-12 (Cyanocobalamin) 500 Mcg Tab 500 Mcg PO DAILY 04/20/16 Reported Aspirin 81 Mg Tabdr 81 Mg PO DAILY 04/20/16 Reported Ferrous Sulfate 325 Mg Tab 325 Mg PO BID 04/19/16 Reported Magnesium Oxide 400 Mg Tab 800 Mg PO BID 04/19/16 Reported Family History Denies any family hx of esophageal, gastric, colorectal cancer. Social History Smokes 1/2 PPD Occasional ETOH use (Carole Cruz) Review of Systems Constitutional: COMPLAINS OF: Fatigue, DENIES: Fever, Chills Respiratory: DENIES: Cough Cardiovascular: COMPLAINS OF: Chest pain Gastrointestinal: COMPLAINS OF: Abdominal pain, DENIES: Black stools, Bloody stools, Constipation, Diarrhea, Nausea, Vomiting, Heartburn, Hematemesis Musculoskeletal: COMPLAINS OF: Muscle aches Neurologic: DENIES: Headache Psychiatric: DENIES: Confusion (Carole Cruz) GI Exam Vitals I&O Vital Signs Date Time Temp Pulse Resp B/P (MAP) Pulse Ox O2 Delivery O2 Flow Rate FiO2 04/30/17 17:00 64 04/30/17 16:00 60 04/30/17 15:00 98.2 66 16 176/74 (108) 93 04/30/17 15:00 78 04/30/17 14:40 16 04/30/17 14:00 64 04/30/17 13:00 64 04/30/17 12:00 70 04/30/17 11:00 98.5 71 16 164/70 (101) 94 04/30/17 11:00 66 04/30/17 10:00 62 04/30/17 09:00 60 04/30/17 08:00 66 04/30/17 08:00 97.9 70 18 152/74 (100) 04/30/17 07:00 96 Room Air 04/30/17 07:00 64 04/30/17 06:03 64 04/30/17 05:05 64 04/30/17 04:37 97.7 71 151/67 (95) 94 04/30/17 04:00 64 04/30/17 03:35 70 04/30/17 02:00 78 04/30/17 01:00 76 04/30/17 00:00 98.7 68 190/82 (118) 95 04/30/17 00:00 70 04/29/17 23:00 69 04/29/17 22:00 74 04/29/17 21:23 93 21 04/29/17 21:00 76 04/29/17 20:00 Room Air 04/29/17 20:00 98.5 81 164/80 (108) 96 04/29/17 20:00 76 04/29/17 19:00 78 04/29/17 18:21 75 19 161/73 95 I/O 04/29/17 04/29/17 04/29/17 04/30/17 04/30/17 04/30/17 07:00 15:00 23:00 07:00 15:00 23:00 Intake Total 1180 ml 570 ml Output Total 700 ml Balance 1180 ml -130 ml Intake Oral 570 ml IV Total 400 ml Packed Cells 750 ml Blood Product IV Normal Saline Flush 30 ml Output Urine Total 700 ml # Voids 1 2 # Bowel Movements 1 Imaging Last Impressions Abdomen/Pelvis CT 04/29/17 0000 Signed Impressions: Service Date/Time: Saturday, April 29, 2017 10:38 - CONCLUSION: 1. Stable large right groin hematoma. 2. Vicarious excretion of contrast by the gallbladder and persistent contrast opacification of the kidneys characteristic of renal insufficiency. 3. Colonic diverticulosis without evidence of active inflammatory changes. 4. No evidence of acute process in the abdomen or pelvis. Reuben Carr MD Catheter Placement X-Ray 04/28/17 0000 Signed Impressions: Service Date/Time: Friday, April 28, 2017 16:14 - CONCLUSION: Uncomplicated venous catheter change as above. Stoney Morrow MD Lower Extremity Ultrasound 04/26/17 0000 Signed Impressions: Service Date/Time: Wednesday, April 26, 2017 14:24 - CONCLUSION: Large groin hematoma. No evidence of pseudoaneurysm Keegan Cedeno MD Chest X-Ray 04/22/17 0600 Signed Impressions: Service Date/Time: Saturday, April 22, 2017 02:19 - CONCLUSION: No acute cardiopulmonary disease identified. Trevor Townsend MD Renal Ultrasound 04/21/17 0000 Signed Impressions: Service Date/Time: Friday, April 21, 2017 17:11 - CONCLUSION: Stone in the lateral left kidney. No evidence of hydronephrosis or solid mass. No evidence of obstruction. Kirill Lindre MD Laboratory Test 04/29/17 23:25 04/30/17 06:15 White Blood Count 15.3 TH/MM3 15.4 TH/MM3 Red Blood Count 3.24 MIL/MM3 3.27 MIL/MM3 Hemoglobin 9.8 GM/DL 10.1 GM/DL Hematocrit 28.8 % 29.3 % Mean Corpuscular Volume 89.0 FL 89.4 FL Mean Corpuscular Hemoglobin 30.4 PG 31.0 PG Mean Corpuscular Hemoglobin Concent 34.1 % 34.7 % Red Cell Distribution Width 15.9 % 16.1 % Platelet Count 108 TH/MM3 110 TH/MM3 Mean Platelet Volume 8.9 FL 9.0 FL Neutrophils (%) (Auto) 92.2 % Lymphocytes (%) (Auto) 2.4 % Monocytes (%) (Auto) 5.0 % Eosinophils (%) (Auto) 0.1 % Basophils (%) (Auto) 0.3 % Neutrophils # (Auto) 14.2 TH/MM3 Lymphocytes # (Auto) 0.4 TH/MM3 Monocytes # (Auto) 0.8 TH/MM3 Eosinophils # (Auto) 0.0 TH/MM3 Basophils # (Auto) 0.0 TH/MM3 CBC Comment DIFF FINAL Differential Comment Hematology Comments Activated Partial Thromboplast Time 22.6 SEC Blood Urea Nitrogen 113 MG/DL Creatinine 4.57 MG/DL Random Glucose 190 MG/DL Calcium Level 7.9 MG/DL Sodium Level 135 MEQ/L Potassium Level 4.4 MEQ/L Chloride Level 96 MEQ/L Carbon Dioxide Level 24.7 MEQ/L Anion Gap 14 MEQ/L Estimat Glomerular Filtration Rate 10 ML/MIN Date/Time Source Procedure Growth Status 04/29/17 09:30 Stool Stool Stool Occult Blood (CHUCK) - Final HEMOCCULT POSITIVE Complete 04/21/17 04:40 Nasal Aspirate Influenza Types A,B Antigen (CHUCK) - Final NEGATIVE FOR FLU A AND B ANTIGEN.... Complete 04/21/17 08:20 Urine Catheterized Urine Urine Culture - Final NO GROWTH IN 48 HOURS. Complete Physical Examination HEENT: Normocephalic; atraumatic; no jaundice. CHEST: CTA CARDIAC: RRR ABDOMEN: Soft, nondistended, mild right abdomen tenderness; no hepatosplenomegaly; bowel sounds are present in all four quadrants. EXTREMITIES: No clubbing, cyanosis, or edema. SKIN: Extensive bruising right lower abdomen/groin/flank [employer]GER: No focal deficits; alert and oriented times three. (Carole Cruz) Assessment and Plan Plan ASSESSMENT: - Anemia with drop in Hgb. Pt had significant drop in Hgb after the cardiac cath. CT Scan at that time noted right inguinal and right lower quadrant abdominal wall hematoma measuring up to 8.8cm with surrounding subcutaneous inflammatory changes which extend into the mons pubis region. She was given 2 units of PRBC and responded appropriately, but then dropped again on 04/29 to 6.3/19.1. She was given an additional 2 units of PRBC and her H/H is now 10.1/29.3. Of note, she was found to have extensive ecchymosis to her right flank/right lower abdomen/groin. CT scan abdomen and pelvis (04/29/17)---> Stable large right groin hematoma , vicarious excretion of contrast by the gallbladder and persistent contrast opacification of the kidneys characteristic of renal insufficiency, colonic diverticulosis without evidence of active inflammatory changes, no evidence of acute process in the abdomen or pelvis. Stool hemoccult (+). GI was consulted for further evaluation. EGD/Colonoscopy (04/21/15)--> gastritis antrum, normal duodenum, retroflexed views revealed a hiatal hernia, diverticulosis sigmoid, descending semisolid stool throughout the colon, no gross lesions seen, retroflexed views revealed medium internal hemorrhoids, external hemorrhoids , decreased sphincter tone. Pathology duodenal mucosa without significant histopathologic abnormality, mild chronic gastritis, negative for H. Pylori. It was recommended that she have a repeat colonoscopy in 3 months with consideration for a capsule endoscopy. PPI. HH stable 10.1/29.3. No GI symptoms or active bleeding at this time. Likely her anemia is related to her hematoma. - Hemoccult (+). Last EGD/Colonoscopy in 2014 as above. No obvious active GI bleeding. - Hematoma. Had drop in Hgb after cardiac cath, CT revelaed right inguinal and right lower quadrant abdominal wall hematoma measuring up to 8.8cm with surrounding subcutaneous inflammatory changes which extend into the mons pubis region. Rpt. CT Scan with stable large right groin hematoma. Monitor HH - NSTEMI/CAD. S/P left heart catheterization (04/24/17)----> multivessel coronary artery disease, new cardiomyopathy with EF of 45-50%. Cardiac thoracic surgery was consulted for evaluation for CABG and she was restarted on heparin, ASA/BB/statin. Heparin now on hold because of hematoma. - Acute on chronic kidney disease with electrolyte abnormalities. S/P vascath, HD. - COPD, HTN, DM, Hypothyroidism, Secondary hyperparathyroidism, per attending. PLAN: - VANGIE - PPI - Monitor HH - Transfuse as necessary - Supportive care - Further recommendations to follow based on results of above - Pt seen and examined by Dr. Garcia and myself and this note is written on his behalf (Carole Cruz) Physician Comments Seen and examined with Carole, plan as above. Further recommendations to follow. Thank you. (Aleksandar Garcia MD) Carole Cruz Apr 30, 2017 18:28 Aleksandar Garcia MD May 05, 2017 03:29
[2017-04-30] MEDS: ATORVASTATIN 10 MG TAB PO SCH (20:57)
[2017-04-30] MEDS: INSULIN DETEMIR 100 UNITS/ML VIAL SQ SCH (21:00)
[2017-05-01] VITALS (24 sets, daily range): BP systolic 153–184; BP diastolic 76–84; PULSE 59–88; RESP 18; TEMP 97.6–98.4; O2SAT 95–97
[2017-05-01] MEDS: CHLORHEXIDINE GLUCONATE 2 % 1 PACK (2 CLOTHS) TOP SCH (01:04)
[2017-05-01] MEDS: oxyCODONE/ACETAMINOPHEN 10 MG/325 MG TAB PO PRN ×2 (02:08→22:00)
[2017-05-01] MEDS: LEVOTHYROXINE SODIUM 50 MCG TAB PO SCH (05:23)
[2017-05-01 06:58] LABS: BICARBONATE 27.9 MEQ/L (21.0-32.0); POTASSIUM 4.2 MEQ/L (3.5-5.1)
[2017-05-01 07:02] LABS: APTT (PATIENT) 23.9 SEC (24.3-30.1)
[2017-05-01] MEDS: INSULIN DETEMIR 100 UNITS/ML VIAL SQ SCH ×2 (08:46→21:51)
[2017-05-01] MEDS: ASPIRIN 81 MG CHEW TAB CHEW SCH (08:47)
[2017-05-01] MEDS: SODIUM CHLORIDE 0.9% FLUSH 10 ML FLUSH IV FLUSH SCH ×2 (08:47→21:51)
--- NOTE | 2017-05-01 08:47 | HHI.FPPN ---
Subjective Remarks Mrs. Alicia was afebrile stable vital signs overnight (HTN with max SBP 178). Per review of EMR, 1300ml urine output overnight. Mrs. Alicia accompanied by her daughter and son who supplemented history. Patient has had continued cough which she states is productive; she thinks that this has been and will continue to be alleviated by sitting upright in bedside chair. No associated shortness of breath or chest pain. Patient has continued abdominal pain; she feels that her hematoma has not significantly changed. Patient had BM 2 days ago. Patient had an episode of "gagging" and nausea last night; patient's daughter reports concern but thinks it may be due to anxiety. Patient does not report subsequent symptoms. (Eric Stevenson MD, R3) Objective Vitals Vital Signs Date Time Temp Pulse Resp B/P (MAP) Pulse Ox O2 Delivery O2 Flow Rate FiO2 05/01/17 06:02 61 05/01/17 05:03 59 05/01/17 04:09 63 05/01/17 03:48 97.9 71 153/79 (103) 97 05/01/17 03:00 65 05/01/17 02:39 67 05/01/17 01:03 67 05/01/17 00:24 67 04/30/17 23:55 97.7 67 164/78 (106) 94 04/30/17 23:00 71 04/30/17 22:15 Room Air 04/30/17 22:15 97.9 64 178/80 (112) 95 04/30/17 22:00 72 04/30/17 21:00 66 04/30/17 20:21 94 21 04/30/17 20:00 68 04/30/17 19:00 69 04/30/17 18:00 93 04/30/17 17:00 64 04/30/17 16:00 60 04/30/17 15:00 98.2 66 16 176/74 (108) 93 04/30/17 15:00 78 04/30/17 14:40 16 04/30/17 14:00 64 04/30/17 13:00 64 04/30/17 12:00 70 04/30/17 11:00 98.5 71 16 164/70 (101) 94 04/30/17 11:00 66 04/30/17 10:00 62 04/30/17 09:00 60 I/O 04/30/17 04/30/17 04/30/17 05/01/17 05/01/17 05/01/17 07:00 15:00 23:00 07:00 15:00 23:00 Intake Total 570 ml 480 ml 480 ml Output Total 700 ml 200 ml 1100 ml Balance -130 ml 280 ml -620 ml Intake Oral 570 ml 480 ml 480 ml Output Urine Total 700 ml 200 ml 1100 ml # Voids 2 (Eric Stevenson MD, R3) Result Diagram: 04/30/17 0615 05/01/17 0616 Imaging Last Impressions Abdomen/Pelvis CT 04/29/17 0000 Signed Impressions: Service Date/Time: Saturday, April 29, 2017 10:38 - CONCLUSION: 1. Stable large right groin hematoma. 2. Vicarious excretion of contrast by the gallbladder and persistent contrast opacification of the kidneys characteristic of renal insufficiency. 3. Colonic diverticulosis without evidence of active inflammatory changes. 4. No evidence of acute process in the abdomen or pelvis. Reuben Carr MD Catheter Placement X-Ray 04/28/17 0000 Signed Impressions: Service Date/Time: Friday, April 28, 2017 16:14 - CONCLUSION: Uncomplicated venous catheter change as above. Stoney Morrow MD Lower Extremity Ultrasound 04/26/17 0000 Signed Impressions: Service Date/Time: Wednesday, April 26, 2017 14:24 - CONCLUSION: Large groin hematoma. No evidence of pseudoaneurysm Keegan Cedeno MD Chest X-Ray 04/22/17 0600 Signed Impressions: Service Date/Time: Saturday, April 22, 2017 02:19 - CONCLUSION: No acute cardiopulmonary disease identified. Trevor Townsend MD Renal Ultrasound 04/21/17 0000 Signed Impressions: Service Date/Time: Friday, April 21, 2017 17:11 - CONCLUSION: Stone in the lateral left kidney. No evidence of hydronephrosis or solid mass. No evidence of obstruction. Kirill Linder MD Objective Remarks General: Resting in bed in no acute distress with daughter at bedside. Skin: Warm and dry. bruising on left chest and other scattered bruises. Large hematoma at left catheter site R ABD: Large hematoma from the right lower quadrant to pelvic area HEENT: EOM grossly I. CV: Regular rate and rhythm without murmurs. Normal peripheral perfusion. No significant LE edema Lungs: Normal rate. mild wheezing bilaterally; decreased air movement overall. Abdomen: Soft, nontender, non-distended with normal bowel sounds. MSK: Not assessed at this exam- previously right third toe amputated, no swelling or tenderness Neuro: Awake, alert. Grossly normal CN. No peripheral motor/sensory defects appreciated. Procedures Vascath 04/22/17 Initiate hemodialysis 04/22/17 Catheterization and stent placement on 04/28/17 (Eric Stevenson MD, R3) A/P Assessment and Plan 61 yo female with NSTEMI, acute COPD exacerbation, acute renal failure with chronic renal disease requiring hemodialysis. Cardiology and nephrology on board ; receiving dialysis. Cath 04/24 with multivessel CAD; undergoing 2 step catheterization with stenting. Discharge Planning Pending clinical course. Patient currently scheduled for cardiac catheterization with stenting today (05/01) in order to decrease contrast load as she is in acute renal failure. Patient to receive dialysis per nephrology schedule. (Eric Stevenson MD, R3) Attending Attestation Medical rounds were performed with Dr Stevenson,Patient seen and examined,agree with contents of note, see orders (Juan Luis Flowers MD) Problem List: (1) NSTEMI (non-ST elevated myocardial infarction) ICD Codes: I21.4 - Non-ST elevation (NSTEMI) myocardial infarction Status: Acute Plan: Impression: Troponin elevated at admission along with atypical chest pain. Non-specific ST-T wave changes on initial EKG's. Patient initially placed on Heparin. 04/24/2017- Patient s/p Catheterization per Dr. Cole which demonstrated NSTEMI, multivessel coronary disease, new cardiomyopathy with EF 45-50% Heparin drip discontinued due to hematoma and anemia - Cardiology consulted -CV surgery initially consulted but decision made for stenting rather than CABG for multivessel disease due to renal failure and concern for poor surgical outcome -S/P cath/stenting 04/28 (L circumflex, obtuse marginal) -Plan for stenting today, 05/01 - Continue DAPT with aspirin and Brillinta -Continue Lipitor 10 mg qHS, Coreg 3.125 mg bid -Hold RISSA/ARB (2) Acute on chronic kidney failure ICD Codes: N17.9 - Acute kidney failure, unspecified; N18.9 - Chronic kidney disease, unspecified Status: Acute Plan: 05/01: Cr 5.21, K 4.2. 1300ml urine output overnight Nephrology consulted -PRN Dialysis; will need permacath placement -Monitor electrolytes -IVF per Nephrology -Continue to monitor urine output, electrolytes - Avoid nephrotoxic agents, contrast agents Impression: Has a history of diabetes with diabetic nephropathy. Has proteinuria and oliguria with acute decrease in renal function. Her baseline creatinine is about 2.8, now with doubling of creatinine. Also with hyperkalemia and metabolic acidosis. Etiology includes chronic kidney disease with acute exacerbation possibly from poor cardiac output with NSTEMI. Renal ultrasound showing no obstruction, has stone that is non-obstructing Complement negative MIGUE negative, SPEP, urine immunofixation normal Hepatitis profile negative (3) Anemia ICD Codes: D64.9 - Anemia, unspecified Status: Acute Plan: 05/01: Hgb 10.1/Hct 29.3 -Continue to monitor H/H and transfuse as necessary: -s/p 4 U pRBC 04/26 and 04/29 -Heparin as needed for procedures -GI consulted -VANGIE, PPI, monitor HH and supportive care -Vascular surgery consulted -No surgical intervention needed at this time; follow RLE pulse checks and serial Hcts -Cleared from a vascular standpoint 04/27 Impression: Anemia in association with recent catheterization, R groin hematoma , positive hemmocult on recent heparin treatment 04/26- CT abdomen and pelvis 04/26: Right inguinal and right lower quadrant abdominal wall hematoma measuring 8.8 cm. Subcutaneous inflammatory changes which extend into the mons pubis region. Bilateral flank edema. Nonacute findings include small left pleural effusion, severe atherosclerotic disease, and sigmoid diverticulosis. No pseudoaneurysm. 04/26: LE US- large groin hematoma; no evidence of pseudoaneurysm 04/29- Repeat CT abdomen and pelvis on 04/29: Unchanged from previous CT abdomen (4) COPD (chronic obstructive pulmonary disease) ICD Codes: J44.9 - Chronic obstructive pulmonary disease, unspecified Status: Chronic Plan: History of COPD with recent upper respiratory symptoms and acute exacerbation, recently diagnosed with pneumonia while on cruise ship and was started on azithromycin. - IV Solumedrol 60 mg q12hrs started 04/21 - DuoNebs q6hrs scheduled - Levaquin empirically, renally dosed, started 04/22 Q48H - O2 supplementation with target O2 90% (5) Hyperkalemia ICD Codes: E87.5 - Hyperkalemia; N18.9 - Chronic kidney disease, unspecified Status: Resolved Plan: Hyperkalemia up to 6.0 with acute renal failure. Resolved with hemodialysis. - Continue management per nephrology (6) Hyponatremia ICD Codes: E87.1 - Hypo-osmolality and hyponatremia Status: Resolved Plan: Hyponatremia with acute renal failure, asymptomatic, resolved at this time. - IV fluids per nephrology - Monitor electrolytes - Hemodialysis per nephrology (7) DM2 (diabetes mellitus, type 2) ICD Codes: E11.9 - Type 2 diabetes mellitus without complications Status: Chronic Plan: History of diabetes type II - Sliding scale insulin with glucose goal of 140-180 (8) HTN (hypertension) ICD Codes: I10 - HTN (hypertension) Status: Chronic Plan: Impression: Mild hypertension during hospitalization with SBP 140s-160 - Continue carvedilol 3.125 bid -Will plan for dosage increase if persistent (9) Hypothyroidism ICD Codes: E03.9 - Hypothyroidism, unspecified Status: Chronic Plan: TSH normal - Levothyroxine 50 mcg daily (10) DVT Prophylaxis Status: Acute Plan: Heparin drip discontinued due to anemia/ suspected active bleeding (11) Secondary hyperparathyroidism (of renal origin) ICD Codes: N25.81 - Secondary hyperparathyroidism of renal origin Status: Acute Plan: Patient with secondary hyperparathyroidism with significantly elevated phosphate and low calcium. Intact PTH 364.5 1,25 OH Vit D 11 -Will plan to initiate supplementation - Dietary phosphate restriction to 900 mg/day -Consider PhosLo -Management per Nephrology (12) Nutrition, metabolism, and development symptoms ICD Codes: R63.8 - Other symptoms and signs concerning food and fluid intake Status: Acute Plan: Heart healthy diet IV fluids per nephrology Phosphate restriction 900 mg/day for hyperphosphatemia Hyponatremia, hyperkalemia initially Receiving dialysis per nephrology Acute renal failure with CKD, monitor renal function Protonix IV 40 mg daily (Eric Stevenson MD, R3) Problem Qualifiers (1) Acute on chronic kidney failure: Qualified Codes: N17.9 - Acute kidney failure, unspecified; N18.9 - Chronic kidney disease, unspecified (2) Anemia: Qualified Codes: D64.9 - Anemia, unspecified (3) DM2 (diabetes mellitus, type 2): (4) HTN (hypertension): Qualified Codes: I10 - Essential (primary) hypertension (5) Hypothyroidism: Qualified Codes: E03.9 - Hypothyroidism, unspecified Eric Stevenson MD, R3 May 01, 2017 08:47 Juan Luis Flowers MD May 01, 2017 10:51
[2017-05-01] MEDS: BUMETANIDE INJ 1 MG/4 ML VIAL IV PUSH SCH ×2 (08:48→17:17)
[2017-05-01] MEDS: PANTOPRAZOLE SODIUM 40 MG VIAL IV PUSH SCH (08:48)
[2017-05-01] MEDS: methylPREDNISolone SOD SUCC 125 MG/2 ML VIAL IV PUSH SCH ×2 (08:48→21:50)
[2017-05-01] MEDS: TICAGRELOR 90 MG TAB PO SCH ×2 (08:49→21:51)
[2017-05-01] MEDS: DOCUSATE SODIUM 50 MG/SENNA 8.6 MG TAB PO SCH ×2 (08:49→21:50)
[2017-05-01] MEDS: CARVEDILOL 3.125 MG TAB PO SCH ×2 (08:49→21:50)
[2017-05-01] MEDS: CYANOCOBALAMIN 1,000 MCG TAB PO SCH (09:00)
--- NOTE | 2017-05-01 09:43 | PD.CARD.PN ---
Subjective Subjective Remarks Events over the weekend noted Currently up to the chair, feels well No chest pain/SOB Objective Medications Current Medications Medications (Trade) Dose Ordered Sig/Des Route Start Time Stop Time Status Last Admin (Protonix Inj) 40 mg DAILY IV PUSH 04/21/17 09:00 05/01/17 08:48 (Duoneb Neb) 1 ampule Q4HR NEB PRN INH 04/21/17 06:45 Miscellaneous Information 1 Q361D XX 04/21/17 06:45 (Chlorhexidine 2% Cloth) Taper DAILY@04 TOP 04/22/17 04:00 04/18/18 03:59 04/27/17 00:35 (Chlorhexidine 2% Cloth) 3 pack UNSCH PRN TOP 04/21/17 06:45 (Malaika-Colace) 1 tab BID PO 04/21/17 09:00 04/30/17 20:57 (Milk Of Magnesia Liq) 30 ml Q12H PRN PO 04/21/17 06:45 (Senokot) 17.2 mg Q12H PRN PO 04/21/17 06:45 (Dulcolax Supp) 10 mg DAILY PRN RECTAL 04/21/17 06:45 (Lactulose Liq) 30 ml DAILY PRN PO 04/21/17 06:45 (Aspirin Chew) 81 mg DAILY CHEW 04/22/17 09:00 05/01/17 08:47 (Coreg) 3.125 mg Q12HR PO 04/21/17 09:00 05/01/17 08:49 (Lipitor) 10 mg HS PO 04/21/17 21:00 04/30/17 20:57 (Vitamin B12) 500 mcg DAILY PO 04/21/17 09:00 04/30/17 09:03 (Synthroid) 50 mcg DAILY@0600 PO 04/21/17 07:00 05/01/17 05:23 (SoluMEDROL INJ) 60 mg Q12HR IV PUSH 04/21/17 11:30 05/01/17 08:48 Levofloxacin/ Dextrose 100 ml @ 100 mls/hr Q48H IV 04/21/17 12:00 04/29/17 12:16 (Restoril) 15 mg HS PRN PO 04/21/17 20:45 04/30/17 23:02 Sodium Chloride 1,000 ml @ 0 mls/hr Q0M PRN OTHER 04/22/17 14:04 (Heparin Inj) 8,000 units UNSCH PRN IV FLUSH 04/22/17 14:15 04/28/17 19:06 Sodium Chloride 1,000 ml @ 200 mls/hr Q5H PRN IV 04/22/17 14:04 Sodium Chloride 1,000 ml @ 0 mls/hr Q0M PRN OTHER 04/22/17 14:04 (Mannitol Inj) 12.5 gm UNSCH PRN IV 04/22/17 14:15 Albumin Human 100 ml @ 60 mls/hr UNSCH PRN IV 04/22/17 14:15 04/28/17 19:07 (NS Flush) 5 ml UNSCH PRN IV FLUSH 04/22/17 14:15 (Heparin Inj) UNSCH PRN .XX 04/22/17 14:15 (Gentamicin (Dialysis) Inj) 20 mg UNSCH PRN OTHER 04/22/17 14:15 04/28/17 19:06 (Zofran Inj) 4 mg UNSCH PRN IV PUSH 04/22/17 14:15 (Tylenol) 650 mg UNSCH PRN PO 04/22/17 14:15 04/25/17 12:21 (Benadryl) 25 mg UNSCH PRN PO 04/22/17 14:15 (Nitrostat Sl) 0.4 mg UNSCH PRN SL 04/22/17 14:15 (Catapres) 0.1 mg UNSCH PRN PO 04/22/17 14:15 04/27/17 22:31 (Gelfoam 12 Mm/7 Mm Top) 1 foam UNSCH PRN TOP 04/22/17 14:15 (Apresoline Inj) 10 mg Q30M PRN IV PUSH 04/23/17 13:15 04/30/17 21:02 (Phoslo) 2,001 mg TID PO 04/23/17 18:00 04/30/17 18:28 (Rocaltrol) 0.25 mcg DAILY PO 04/24/17 09:15 04/30/17 09:03 (Atropine Inj) 0.5 mg UNSCH PRN IV PUSH 04/24/17 10:00 (NS Flush) 2 ml BID IV FLUSH 04/24/17 21:00 05/01/17 08:47 (NS Flush) 2 ml UNSCH PRN IV FLUSH 04/24/17 15:45 (Lopressor) 12.5 mg DEVELOPMENT SYSTEM EFFICIENCY MANAGER PO 04/24/17 15:45 05/01/17 15:44 (Hibiclens 4% Top Soln) 1 applic DEVELOPMENT SYSTEM EFFICIENCY MANAGER TOPICAL 04/24/17 15:45 05/01/17 15:44 (D50w (Vial) Inj) 50 ml UNSCH PRN IV PUSH 04/24/17 15:45 (Morphine Inj) 2 mg Q3H PRN IV PUSH 04/26/17 09:30 04/29/17 13:33 (Bumex Inj) 2 mg BID@18 IV PUSH 04/26/17 20:45 05/01/17 08:48 (Brilinta) 90 mg BID PO 04/29/17 09:00 05/01/17 08:49 (Percocet 5-325 Mg) 1 tab Q4H PRN PO 04/29/17 13:30 (Percocet 10-325 Mg) 1 tab Q4H PRN PO 04/29/17 13:30 05/01/17 02:08 (NovoLOG SUPPLEMENTAL SCALE) 1 ACHS SQ 04/30/17 21:00 04/30/17 21:03 (Levemir Inj) 5 units Q12HR SQ 04/30/17 21:00 05/01/17 08:46 (Glucagon Inj) 1 mg UNSCH PRN OTHER 04/30/17 18:15 Vital Signs / I&O Vital Signs Date Time Temp Pulse Resp B/P (MAP) Pulse Ox O2 Delivery O2 Flow Rate FiO2 05/01/17 06:02 61 05/01/17 05:03 59 05/01/17 04:09 63 05/01/17 03:48 97.9 71 153/79 (103) 97 05/01/17 03:00 65 05/01/17 02:39 67 05/01/17 01:03 67 05/01/17 00:24 67 04/30/17 23:55 97.7 67 164/78 (106) 94 04/30/17 23:00 71 04/30/17 22:15 Room Air 04/30/17 22:15 97.9 64 178/80 (112) 95 04/30/17 22:00 72 04/30/17 21:00 66 04/30/17 20:21 94 21 04/30/17 20:00 68 04/30/17 19:00 69 04/30/17 18:00 93 04/30/17 17:00 64 04/30/17 16:00 60 04/30/17 15:00 98.2 66 16 176/74 (108) 93 04/30/17 15:00 78 04/30/17 14:40 16 04/30/17 14:00 64 04/30/17 13:00 64 04/30/17 12:00 70 04/30/17 11:00 98.5 71 16 164/70 (101) 94 04/30/17 11:00 66 04/30/17 10:00 62 I/O 04/30/17 04/30/17 04/30/17 05/01/17 05/01/17 05/01/17 07:00 15:00 23:00 07:00 15:00 23:00 Intake Total 570 ml 480 ml 480 ml Output Total 700 ml 200 ml 1100 ml Balance -130 ml 280 ml -620 ml Intake Oral 570 ml 480 ml 480 ml Output Urine Total 700 ml 200 ml 1100 ml # Voids 2 Physical Exam GENERAL: NAD, AAOx3 SKIN: Warm and dry. HEAD: Atraumatic. Normocephalic. EYES: Pupils equal and round. No scleral icterus. No injection or drainage. ENT: No nasal bleeding or discharge. Mucous membranes pink and moist. NECK: Trachea midline. No JVD. CARDIOVASCULAR: Regular rate and rhythm. RESPIRATORY: No accessory muscle use. Clear to auscultation. Breath sounds equal bilaterally. GASTROINTESTINAL: Abdomen soft, non-tender, nondistended. Hepatic and splenic margins not palpable. MUSCULOSKELETAL: Extremities without clubbing, cyanosis, or edema. No obvious deformities. Right abdominal wall with large ecchymosis, left femoral no hematoma/bruit NEUROLOGICAL: Awake and alert. No obvious cranial nerve deficits. Motor grossly within normal limits. Five out of 5 muscle strength in the arms and legs. Normal speech. PSYCHIATRIC: Appropriate mood and affect; insight and judgment normal. Laboratory Laboratory Tests Test 05/01/17 06:16 Activated Partial Thromboplast Time 23.9 SEC Blood Urea Nitrogen 131 MG/DL Creatinine 5.21 MG/DL Random Glucose 233 MG/DL Calcium Level 7.7 MG/DL Sodium Level 133 MEQ/L Potassium Level 4.2 MEQ/L Chloride Level 93 MEQ/L Carbon Dioxide Level 27.9 MEQ/L Anion Gap 12 MEQ/L Estimat Glomerular Filtration Rate 8 ML/MIN Assessment and Plan Problem List: (1) NSTEMI (non-ST elevated myocardial infarction) ICD Codes: I21.4 - Non-ST elevation (NSTEMI) myocardial infarction Status: Acute (2) Acute on chronic kidney failure ICD Codes: N17.9 - Acute kidney failure, unspecified; N18.9 - Chronic kidney disease, unspecified Status: Acute (3) HTN (hypertension) ICD Codes: I10 - HTN (hypertension) Status: Chronic (4) HLD (hyperlipidemia) ICD Codes: E78.5 - HLD (hyperlipidemia) Status: Chronic (5) Anemia ICD Codes: D64.9 - Anemia, unspecified Status: Acute Assessment and Plan 1) NSTEMI/CAD Multivessel CAD ASA/BB/Statin/Brilinta Turned down for CABG s/p PCI of LCX with DESx2 (mid 2.5x22, distal 2.25x15 overlapped), PCI OM1 with ROMAN (2.25x18) Will hold on PCI LAD for now 2) LEEANN on CKD HD started Still making urine with increased output Attempt to decrease nephrotoxin medications (contrast) if possible, not sure if chronic yet 3) Anemia Post-procedure Now with right groin hematoma No PSA or RPB Significant drop in Hgb after heparin during PCI, Heme positive stools Discussed with GI, will consider EGD to rule out ulcer Problem Qualifiers (1) Acute on chronic kidney failure: Qualified Codes: N17.9 - Acute kidney failure, unspecified; N18.9 - Chronic kidney disease, unspecified (2) HTN (hypertension): Qualified Codes: I10 - Essential (primary) hypertension (3) HLD (hyperlipidemia): Qualified Codes: E78.5 - Hyperlipidemia, unspecified (4) Anemia: Qualified Codes: D64.9 - Anemia, unspecified Hemanth Cole DO May 01, 2017 09:43
[2017-05-01] MEDS: hydrALAZINE HCL 20 MG/ML VIAL IV PUSH PRN (10:58)
--- NOTE | 2017-05-01 11:15 | HHI.NPPN ---
Subjective General Problems: Anemia, Edema Renal Failure: Chronic, Acute, Stage IV Interval History Her cardiac catheterization for today was postponed. She is fluid overloaded, was transfused over the weekend. Some shortness of breath. (Cris Telles) Review of Systems General Constitutional: Fatigue (Cris Telles) Respiratory Lungs: SOB (Cris Telles) Cardiovascular Cardiac: Edema, HAIR (Cris Telles) Objective Data Data Vital Signs Date Time Temp Pulse Resp B/P (MAP) Pulse Ox O2 Delivery O2 Flow Rate FiO2 05/01/17 08:30 97.6 77 18 177/82 (113) 96 05/01/17 06:02 61 05/01/17 05:03 59 05/01/17 04:09 63 05/01/17 03:48 97.9 71 153/79 (103) 97 05/01/17 03:00 65 05/01/17 02:39 67 05/01/17 01:03 67 05/01/17 00:24 67 04/30/17 23:55 97.7 67 164/78 (106) 94 04/30/17 23:00 71 04/30/17 22:15 Room Air 04/30/17 22:15 97.9 64 178/80 (112) 95 04/30/17 22:00 72 04/30/17 21:00 66 04/30/17 20:21 94 21 04/30/17 20:00 68 04/30/17 19:00 69 04/30/17 18:00 93 04/30/17 17:00 64 04/30/17 16:00 60 04/30/17 15:00 98.2 66 16 176/74 (108) 93 04/30/17 15:00 78 04/30/17 14:40 16 04/30/17 14:00 64 04/30/17 13:00 64 04/30/17 12:00 70 (Cris Telles) -: 04/30/17 0615 05/01/17 0616 Imaging Last 72 hours Impressions Abdomen/Pelvis CT 04/29/17 0000 Signed Impressions: Service Date/Time: Saturday, April 29, 2017 10:38 - CONCLUSION: 1. Stable large right groin hematoma. 2. Vicarious excretion of contrast by the gallbladder and persistent contrast opacification of the kidneys characteristic of renal insufficiency. 3. Colonic diverticulosis without evidence of active inflammatory changes. 4. No evidence of acute process in the abdomen or pelvis. Reuben Carr MD Tubes & Lines: Vas-Cath (ElfegoCris B. STATISTICAL CLERK) Physical Exam General Appearance: Well Developed, Well Nourished, No Acute Distress, Comfortable (Elfego,Cris B. STATISTICAL CLERK) Eyes Eye Exam: Pupils Equal (Elfego,Cris B. STATISTICAL CLERK) Throat Throat Exam: Oral Mucosa [place] & Moist (Elfego,Cris B. STATISTICAL CLERK) Neck Neck Exam: Neck Supple (Elfego,Cris B. STATISTICAL CLERK) Pulmonary Resp Exam: No Distress, Crackles, Decreased Bases, Diminished Breath Sounds (Elfego,Cris B. STATISTICAL CLERK) Cardiology CV Exam: Regular, Normal Sinus Rhythm, Good Perfusion (Elfego,Cris B. STATISTICAL CLERK) Gastrointestinal/Abdomen GI Exam: Soft, Non-Tender, Bowel Sounds Present GI Remarks RLQ ecchymosis (Elfego,Cris B. STATISTICAL CLERK) Genitourinary Exam: Clear Urine (Elfego,Cris B. STATISTICAL CLERK) Musculoskeletal MS Exam: Joints Intact, Normal Tone, Good Strength (Elfego,Cris B. STATISTICAL CLERK) Integumentary Skin Exam: Clear, Warm, Dry, Intact (Elfego,Cris B. STATISTICAL CLERK) Extremeties Extremities Exam: Pedal Pulses Palpable, Trace Edema, Pitting Edema, Dependent Edema (Elfego,Cris B. STATISTICAL CLERK) Neurologic Neuro Exam: Alert, Awake, Oriented, Speech Clear, Moving All Extremities (Elfego,Cris B. STATISTICAL CLERK) Psychiatric Psych Exam: Appropriate Responses (Elfego,Cris B. STATISTICAL CLERK) Assessment/Plan Discussed Condition With: Patient, Son, Daughter Assessment Summary: LEEANN/Acute Renal Failure, [place] Hyperparathyroid, Fluid/ Volume Overload, Proteinuria, Hypertension, Diabetes Mellitus, CKD Stage IV Electrolyte Assessment: Hypocalcemia Problem List: (1) Acute on chronic kidney failure ICD Codes: N17.9 - Acute kidney failure, unspecified; N18.9 - Chronic kidney disease, unspecified Status: Acute Plan: She has advanced renal disease, Creatinine 2.8 at baseline, CKD 4 Suspected underlying diabetic nephropathy, heavy proteinuria in the past Evidence of fluid overload, will dialyze today, attempt 3.5-4 liter fluid removal. Repeat labs tomorrow She is tentatively on MWF HD schedule Will need permcath most likely. It remains to be seen if she will require utility specialist HD. Avoid IVF, nephrotoxins. Monitor urine output. (2) NSTEMI (non-ST elevated myocardial infarction) ICD Codes: I21.4 - Non-ST elevation (NSTEMI) myocardial infarction Status: Acute Plan: Cardiology is following Plan for 3rd cath postponed 2D echo: LVH, EF 45-50% (3) DM2 (diabetes mellitus, type 2) ICD Codes: E11.9 - Type 2 diabetes mellitus without complications Status: Chronic Plan: Insulin as needed to maintain glucose of 140-180 mg/dL while hospitalized (4) Metabolic bone disease ICD Codes: E88.9 - Metabolic disorder, unspecified; M90.80 - Osteopathy in diseases classified elsewhere, unspecified site Plan: Continue Calcium acetate Start calcitriol for secondary hyperparathyroidism (5) Hyperkalemia ICD Codes: E87.5 - Hyperkalemia; N18.9 - Chronic kidney disease, unspecified Status: Resolved Plan: Due to reduction in GFR and metabolic acidosis Improved with dialysis, monitor for recurrence (6) Metabolic acidosis ICD Codes: E87.2 - Acidosis Status: Acute Plan: Corrected Follow metabolic profile (7) COPD with acute exacerbation ICD Codes: J44.1 - Chronic obstructive pulmonary disease with (acute) exacerbation Plan: On nebulizers, oxygen She is also on Levaquin and solumedrol (8) Anemia ICD Codes: D64.9 - Anemia, unspecified Status: Acute Plan: she received 2 units over the weekend. Monitor Hb Repeat CT abd/pelvis confirmed hematoma (Cris Telles) Plan patient was seen and examined. Non oliguric. Dialysis, monitor for renal recovery. Cardiac cath postponed due to anemia. (Fantasma Corral MD) Problem Qualifiers (1) Acute on chronic kidney failure: Qualified Codes: N17.9 - Acute kidney failure, unspecified; N18.9 - Chronic kidney disease, unspecified (2) DM2 (diabetes mellitus, type 2): (3) Anemia: Qualified Codes: D64.9 - Anemia, unspecified Cris Telles May 01, 2017 11:15 Fantasma Corarl MD May 02, 2017 11:17
[2017-05-01] MEDS ORDERED: DO NOT ADM ANY ANTICOAGULANT DRUGS PRN (11:29)
--- NOTE | 2017-05-01 11:48 | PD.PROCEDR ---
GI Procedure REFERRING PHYSICIAN Dr. Flowers PROCEDURE PERFORMED EGD INDICATION FOR PROCEDURE Anemia, guaiac-positive stools PROCEDURE: The procedure, risks and benefits were discussed with Ms. Alicia and informed consent was obtained. Anesthesia sedated her with Diprivan. She was placed in the left lateral decubitus position. EGD: The Pentax videoscope was introduced through the oropharynx and advanced to the stomach. Retroflexion was performed in the stomach. FINDINGS: The esophagus this appeared to be unremarkable The stomach this was filled with food and this obscured a large portion of the fundus gastric body and almost all the antrum I was unable to find the pylorus and I was unable to enter the duodenum no blood was seen in the stomach there was some patchy erythema noted in the gastric body but this examination is very limited ESTIMATED BLOOD LOSS: None SPECIMENS REMOVED: None COMPLICATIONS: None IMPRESSION: Gastritis Large amount of food residue consistent with gastroparesis PLAN: We will start Reglan We will start a proton pump inhibitor No evidence of any active GI bleed from the stomach or the esophagus Patient will need to undergo repeat EGD in 1-2 months Okay to proceed with cardiac evaluation is needed Okay to continue with anticoagulation as it seems that the most likely cause of her drop wall is the hematoma Further evaluation from a GI perspective to be done as an outpatient after she is still more stable from a cardiac standpoint Moi East MD May 01, 2017 11:48
[2017-05-01] MEDS ORDERED: SODIUM CHLORID 0.9% 500 ML INJ 500 ML IV ONE (12:00)
[2017-05-01] MEDS: LEVOFLOXACIN 500 MG PREMIX INJ 100 ML IV SCH (12:00)
[2017-05-01] MEDS ORDERED: *morphine SULFATE 8 MG/ML PERIprocedure ONLY ONE (12:00)
[2017-05-01] MEDS ORDERED: PROPOFOL 200 MG/20 ML AMP IV ONE (12:00)
[2017-05-01] MEDS: INSULIN ASPART SUPPLEMENTAL SCALE SQ SCH ×3 (12:00→21:51)
[2017-05-01] MEDS: PANTOPRAZOLE SOD 40 MG DELAYED RELEASE TAB PO SCH (12:30)
[2017-05-01] MEDS: CALCIUM ACETATE 667 MG CAP PO SCH ×2 (13:25→17:16)
[2017-05-01] MEDS: CALCITRIOL 0.25 MCG CAP PO SCH (13:26)
[2017-05-01] MEDS: METOCLOPRAMIDE HCL 10 MG TAB PO SCH ×2 (13:26→16:00)
[2017-05-01 13:49] LABS: BASOPHIL % 0.2 % (0.0-2.0); HEMATOCRIT 32.3 % (35.0-46.0); HEMO FLAGS DIFF FINAL; LYMPH % 1.1 % (9.0-44.0); LYMPHOCYTE # 0.2 TH/MM3 (1.0-4.8); MEAN CELL VOLUME 91.2 FL (80.0-100.0); MEAN CORPUSCULAR HEMOGLOBIN 31.3 PG (27.0-34.0); MEAN CORPUSCULAR HGB CONC 34.4 % (32.0-36.0); MONO % 2.9 % (0.0-8.0); NEUT % 95.8 % (16.0-70.0); PLATELET COUNT 124 TH/MM3 (150-450); RED BLOOD COUNT 3.55 MIL/MM3 (4.00-5.30); RED CELL DISTRIBUTION WIDTH 15.6 % (11.6-17.2); WHITE BLOOD COUNT 21.9 TH/MM3 (4.0-11.0)
[2017-05-01] MEDS: ALBUMIN 25% INJ 100 ML IV PRN ×2 (16:26→16:40)
[2017-05-01] MEDS: HEPARIN SODIUM - IV 10,000 UNITS/10 ML VIAL IV FLUSH PRN (16:27)
[2017-05-01] MEDS: HEPARIN SODIUM - IV 10,000 UNITS/10 ML VIAL PRN (16:52)
[2017-05-01] MEDS: GENTAMICIN SULFATE (DIALYSIS USE ONLY) 20 MG/2 ML VIAL OTHER PRN (16:52)
[2017-05-01] MEDS: ATORVASTATIN 10 MG TAB PO SCH (21:50)
[2017-05-02] VITALS (26 sets, daily range): BP systolic 137–165; BP diastolic 69–80; PULSE 68–86; RESP 16–18; TEMP 98.1–98.6; O2SAT 94–97
[2017-05-02] MEDS: oxyCODONE/ACETAMINOPHEN 10 MG/325 MG TAB PO PRN ×2 (02:59→08:55)
[2017-05-02] MEDS: CHLORHEXIDINE GLUCONATE 2 % 1 PACK (2 CLOTHS) TOP SCH (04:00)
[2017-05-02] MEDS: LEVOTHYROXINE SODIUM 50 MCG TAB PO SCH (06:12)
[2017-05-02] MEDS: METOCLOPRAMIDE HCL 10 MG TAB PO SCH ×2 (06:12→16:19)
[2017-05-02] MEDS: INSULIN DETEMIR 100 UNITS/ML VIAL SQ SCH ×2 (08:30→21:13)
[2017-05-02] MEDS: INSULIN ASPART SUPPLEMENTAL SCALE SQ SCH ×4 (08:30→21:12)
[2017-05-02] MEDS: methylPREDNISolone SOD SUCC 125 MG/2 ML VIAL IV PUSH SCH (08:31)
[2017-05-02] MEDS: BUMETANIDE INJ 1 MG/4 ML VIAL IV PUSH SCH ×2 (08:31→18:31)
[2017-05-02] MEDS: CARVEDILOL 3.125 MG TAB PO SCH ×2 (08:32→21:12)
[2017-05-02] MEDS: TICAGRELOR 90 MG TAB PO SCH ×2 (08:32→21:15)
[2017-05-02] MEDS: CYANOCOBALAMIN 1,000 MCG TAB PO SCH (08:32)
[2017-05-02] MEDS: DOCUSATE SODIUM 50 MG/SENNA 8.6 MG TAB PO SCH ×2 (08:32→21:12)
[2017-05-02] MEDS: PANTOPRAZOLE SOD 40 MG DELAYED RELEASE TAB PO SCH (08:32)
[2017-05-02] MEDS: CALCIUM ACETATE 667 MG CAP PO SCH ×3 (08:32→18:31)
[2017-05-02] MEDS: ASPIRIN 81 MG CHEW TAB CHEW SCH (08:32)
[2017-05-02] MEDS: CALCITRIOL 0.25 MCG CAP PO SCH (08:32)
[2017-05-02] MEDS: SODIUM CHLORIDE 0.9% FLUSH 10 ML FLUSH IV FLUSH SCH ×2 (08:34→21:12)
[2017-05-02 10:03] LABS: HEMATOCRIT 24.1 % (35.0-46.0); MEAN CORPUSCULAR HEMOGLOBIN 31.8 PG (27.0-34.0); MEAN CORPUSCULAR HGB CONC 34.9 % (32.0-36.0); PLATELET COUNT 121 TH/MM3 (150-450); RED BLOOD COUNT 2.65 MIL/MM3 (4.00-5.30); RED CELL DISTRIBUTION WIDTH 15.6 % (11.6-17.2); REVIEW FLAG FINAL; WHITE BLOOD COUNT 19.8 TH/MM3 (4.0-11.0)
--- NOTE | 2017-05-02 10:20 | HHI.FPPN ---
Subjective Remarks Mrs. Alicia was afebrile with stable vital signs overnight; patient with max SBP 164 (SBP 140's-160's). Per I/O review, patient with 3500ml fluid removal via dialysis 05/01. Patient reports doing well at this time; no chest pain or shortness of breath reported. Patient has continued right lower quadrant abdominal pain over groin hematoma. Patient has some urination [1875 ml overnight per I/O review]. Patient has not had a bowel movement in the past several days. (Eric Stevenson MD, R3) Objective Vitals Vital Signs Date Time Temp Pulse Resp B/P (MAP) Pulse Ox O2 Delivery O2 Flow Rate FiO2 05/02/17 07:00 98.3 75 16 158/72 (100) 94 05/02/17 06:00 77 05/02/17 05:00 70 05/02/17 04:00 72 05/02/17 03:00 98.1 70 18 141/70 (93) 97 05/02/17 03:00 70 05/02/17 02:00 76 05/02/17 01:00 80 05/02/17 00:00 70 05/01/17 23:00 69 05/01/17 23:00 97.7 69 18 164/76 (105) 95 05/01/17 22:00 68 05/01/17 21:00 72 05/01/17 20:31 21 05/01/17 20:00 98.4 71 18 161/77 (105) 95 05/01/17 20:00 74 05/01/17 20:00 95 Room Air 05/01/17 19:00 68 05/01/17 16:00 70 05/01/17 15:00 77 18 184/84 (117) 96 05/01/17 15:00 72 05/01/17 14:00 78 05/01/17 13:00 88 05/01/17 12:30 97.8 65 20 150/67 (94) 98 Nasal Cannula 2 05/01/17 12:29 96 Nasal Cannula 2.00 05/01/17 12:15 65 20 166/73 (104) 96 Nasal Cannula 2 05/01/17 12:00 70 20 164/77 (106) 97 Nasal Cannula 2 05/01/17 11:45 67 20 144/67 (92) 96 Nasal Cannula 2 05/01/17 11:35 97.8 79 20 134/60 (84) 96 Nasal Cannula 2 05/01/17 11:32 96 Room Air 05/01/17 11:00 77 18 184/84 (117) 96 05/01/17 11:00 72 I/O 05/01/17 05/01/17 05/01/17 05/02/17 05/02/17 05/02/17 07:00 15:00 23:00 07:00 15:00 23:00 Intake Total 480 ml 75 ml 240 ml Output Total 1100 ml 3500 ml 1875 ml Balance -620 ml 75 ml -3500 ml -1635 ml Intake Oral 480 ml 240 ml Other 75 ml Output Urine Total 1100 ml 1875 ml Hemodialysis 3500 ml # Bowel Movements 0 (Eric Stevenson MD, R3) Result Diagram: 05/02/17 0930 05/01/17 0616 Imaging Last Impressions Abdomen/Pelvis CT 04/29/17 0000 Signed Impressions: Service Date/Time: Saturday, April 29, 2017 10:38 - CONCLUSION: 1. Stable large right groin hematoma. 2. Vicarious excretion of contrast by the gallbladder and persistent contrast opacification of the kidneys characteristic of renal insufficiency. 3. Colonic diverticulosis without evidence of active inflammatory changes. 4. No evidence of acute process in the abdomen or pelvis. Reuben Carr MD Catheter Placement X-Ray 04/28/17 0000 Signed Impressions: Service Date/Time: Friday, April 28, 2017 16:14 - CONCLUSION: Uncomplicated venous catheter change as above. Stoney Morrow MD Lower Extremity Ultrasound 04/26/17 0000 Signed Impressions: Service Date/Time: Wednesday, April 26, 2017 14:24 - CONCLUSION: Large groin hematoma. No evidence of pseudoaneurysm Keegan Cedeno MD Chest X-Ray 04/22/17 0600 Signed Impressions: Service Date/Time: Saturday, April 22, 2017 02:19 - CONCLUSION: No acute cardiopulmonary disease identified. Trevor Townsend MD Renal Ultrasound 04/21/17 0000 Signed Impressions: Service Date/Time: Friday, April 21, 2017 17:11 - CONCLUSION: Stone in the lateral left kidney. No evidence of hydronephrosis or solid mass. No evidence of obstruction. Kirill Linder MD Objective Remarks General: Resting in bed in no acute distress with daughter at bedside. Skin: Warm and dry. R ABD: Large hematoma from the right lower quadrant not inspected today HEENT: EOM grossly I. CV: Regular rate and rhythm without murmurs. Normal peripheral perfusion. No significant LE edema Lungs: Normal rate. decreased air movement without wheezing to auscultation Abdomen: Soft, nontender, non-distended with normal bowel sounds. MSK: Not assessed at this exam- previously right third toe amputated, no swelling or tenderness Neuro: Awake, alert. Grossly normal CN. No peripheral motor/sensory defects appreciated Procedures Vascath 04/22/17 Initiate hemodialysis 04/22/17 Catheterization and stent placement on 04/28/17 (Eric Stevenson MD, R3) A/P Assessment and Plan 61 yo female with NSTEMI, acute COPD exacerbation, acute renal failure with chronic renal disease requiring hemodialysis. Cardiology and nephrology on board ; receiving dialysis. Cath 04/24 with multivessel CAD; undergoing 2 step catheterization with stenting. Discharge Planning Pending clinical course. Patient currently scheduled for cardiac catheterization with stenting today (05/01) in order to decrease contrast load as she is in acute renal failure. Patient to receive dialysis per nephrology schedule. (Eric Stevenson MD, R3) Attending Attestation Medical rounds were conducted with Dr Barron Stevenson this morning, EMR reviewed, Patient interviewed and examined with resident, Agree to contents of this note, See Orders (Juan Luis Flowers MD) Problem List: (1) NSTEMI (non-ST elevated myocardial infarction) ICD Codes: I21.4 - Non-ST elevation (NSTEMI) myocardial infarction Status: Acute Plan: Impression: Troponin elevated at admission along with atypical chest pain. Non-specific ST-T wave changes on initial EKG's. Patient initially placed on Heparin. 04/24/2017- Patient s/p Catheterization per Dr. Cole which demonstrated NSTEMI, multivessel coronary disease, new cardiomyopathy with EF 45-50% Heparin drip discontinued due to hematoma and anemia - Cardiology consulted -CV surgery initially consulted but decision made for stenting rather than CABG for multivessel disease due to renal failure and concern for poor surgical outcome -S/P cath/stenting 04/28 (L circumflex, obtuse marginal) -Plan for stenting today, 05/02 - Continue DAPT with aspirin and Brillinta -Continue Lipitor 10 mg qHS, Coreg 3.125 mg bid -Hold RISSA/ARB (2) Acute on chronic kidney failure ICD Codes: N17.9 - Acute kidney failure, unspecified; N18.9 - Chronic kidney disease, unspecified Status: Acute Plan: 05/02: Cr 4.16 <- 5.21 (05/03), 1875 ml urine output overnight Nephrology consulted -PRN Dialysis; will need permacath placement -last dialysis 05/01 with 3500ml removal -Monitor electrolytes -IVF per Nephrology -Continue to monitor urine output, electrolytes - Avoid nephrotoxic agents, contrast agents Impression: Has a history of diabetes with diabetic nephropathy. Has proteinuria and oliguria with acute decrease in renal function. Her baseline creatinine is about 2.8, now with doubling of creatinine. Also with hyperkalemia and metabolic acidosis. Etiology includes chronic kidney disease with acute exacerbation possibly from poor cardiac output with NSTEMI. Renal ultrasound showing no obstruction, has stone that is non-obstructing Complement negative MIGUE negative, SPEP, urine immunofixation normal Hepatitis profile negative (3) Anemia ICD Codes: D64.9 - Anemia, unspecified Status: Acute Plan: 05/02: Hgb 8.4 <- Hgb 10.1 (05/01) -Continue to monitor H/H and transfuse as necessary: -s/p 4 U pRBC 04/26 and 04/29 -Will order 2 additional U pRBC since Hgb <9; will plan to transfuse with dialysis tomorrow -Heparin as needed for procedures -GI consulted -VANGIE, PPI, monitor HH and supportive care -Vascular surgery consulted -No surgical intervention needed at this time; follow RLE pulse checks and serial Hcts -Cleared from a vascular standpoint 04/27 Impression: Anemia in association with recent catheterization, R groin hematoma , positive hemmocult on recent heparin treatment 04/26- CT abdomen and pelvis 04/26: Right inguinal and right lower quadrant abdominal wall hematoma measuring 8.8 cm. Subcutaneous inflammatory changes which extend into the mons pubis region. Bilateral flank edema. Nonacute findings include small left pleural effusion, severe atherosclerotic disease, and sigmoid diverticulosis. No pseudoaneurysm. 04/26: LE US- large groin hematoma; no evidence of pseudoaneurysm 04/29- Repeat CT abdomen and pelvis on 04/29: Unchanged from previous CT abdomen (4) COPD (chronic obstructive pulmonary disease) ICD Codes: J44.9 - Chronic obstructive pulmonary disease, unspecified Status: Chronic Plan: History of COPD with recent upper respiratory symptoms and acute exacerbation, recently diagnosed with pneumonia while on cruise ship and was started on azithromycin. - IV Solumedrol 60 mg q12hrs started 04/21 - DuoNebs q6hrs scheduled - Levaquin empirically, renally dosed, started 04/22 Q48H - O2 supplementation with target O2 90% (5) Hyperkalemia ICD Codes: E87.5 - Hyperkalemia; N18.9 - Chronic kidney disease, unspecified Status: Resolved Plan: Hyperkalemia up to 6.0 with acute renal failure. Resolved with hemodialysis. - Continue management per nephrology (6) Hyponatremia ICD Codes: E87.1 - Hypo-osmolality and hyponatremia Status: Resolved Plan: Hyponatremia with acute renal failure, asymptomatic, resolved at this time. - IV fluids per nephrology - Monitor electrolytes - Hemodialysis per nephrology (7) DM2 (diabetes mellitus, type 2) ICD Codes: E11.9 - Type 2 diabetes mellitus without complications Status: Chronic Plan: History of diabetes type II - Sliding scale insulin with glucose goal of 140-180 (8) HTN (hypertension) ICD Codes: I10 - HTN (hypertension) Status: Chronic Plan: Impression: Mild hypertension during hospitalization with SBP 140s-160 - Continue carvedilol 3.125 bid -Will plan for dosage increase if persistent (9) Hypothyroidism ICD Codes: E03.9 - Hypothyroidism, unspecified Status: Chronic Plan: TSH normal - Levothyroxine 50 mcg daily (10) Constipation ICD Codes: K59.00 - Constipation, unspecified Plan: Impression: Patient reports feelings of constipation; last BM 2 days prior. -Discussed with patient recommendation for Bisacodyl suppository if desired this evening; patient also has PRN oral bowel motility agents available (11) Secondary hyperparathyroidism (of renal origin) ICD Codes: N25.81 - Secondary hyperparathyroidism of renal origin Status: Acute Plan: Patient with secondary hyperparathyroidism with significantly elevated phosphate and low calcium. Intact PTH 364.5 1,25 OH Vit D 11 -Will plan to initiate supplementation - Dietary phosphate restriction to 900 mg/day -Consider PhosLo -Management per Nephrology (12) DVT Prophylaxis Status: Acute Plan: Heparin drip discontinued due to anemia/ suspected active bleeding (13) Nutrition, metabolism, and development symptoms ICD Codes: R63.8 - Other symptoms and signs concerning food and fluid intake Status: Acute Plan: Heart healthy diet IV fluids per nephrology Phosphate restriction 900 mg/day for hyperphosphatemia Hyponatremia, hyperkalemia initially Receiving dialysis per nephrology Acute renal failure with CKD, monitor renal function Protonix IV 40 mg daily (Eric Stevenson MD, R3) Problem Qualifiers (1) Acute on chronic kidney failure: Qualified Codes: N17.9 - Acute kidney failure, unspecified; N18.9 - Chronic kidney disease, unspecified (2) Anemia: Qualified Codes: D64.9 - Anemia, unspecified (3) COPD (chronic obstructive pulmonary disease): (4) DM2 (diabetes mellitus, type 2): Qualified Codes: E11.8 - Type 2 diabetes mellitus with unspecified complications (5) HTN (hypertension): Qualified Codes: I10 - Essential (primary) hypertension (6) Hypothyroidism: Qualified Codes: E03.9 - Hypothyroidism, unspecified (7) Constipation: Qualified Codes: K59.00 - Constipation, unspecified Eric Stevenson MD, R3 May 02, 2017 10:19 Juan Luis Flowers MD May 05, 2017 13:45
--- NOTE | 2017-05-02 10:21 | HHI.NPPN ---
Subjective General Problems: Anemia, Edema Renal Failure: Chronic, Acute, Stage IV Interval History She had dialysis yesterday with 3.5 liters fluid removal. The daughter informs me she will have a cardiac cath in the morning. The pt is non oliguric. (Cris Telles) Review of Systems General Constitutional: Fatigue (Cris Telles) Respiratory Lungs: SOB (Cris Telles) Cardiovascular Cardiac: Edema, HAIR (Cris Telles) Objective Data Data Vital Signs Date Time Temp Pulse Resp B/P (MAP) Pulse Ox O2 Delivery O2 Flow Rate FiO2 05/02/17 07:00 98.3 75 16 158/72 (100) 94 05/02/17 06:00 77 05/02/17 05:00 70 05/02/17 04:00 72 05/02/17 03:00 98.1 70 18 141/70 (93) 97 05/02/17 03:00 70 05/02/17 02:00 76 05/02/17 01:00 80 05/02/17 00:00 70 05/01/17 23:00 69 05/01/17 23:00 97.7 69 18 164/76 (105) 95 05/01/17 22:00 68 05/01/17 21:00 72 05/01/17 20:31 21 05/01/17 20:00 98.4 71 18 161/77 (105) 95 05/01/17 20:00 74 05/01/17 20:00 95 Room Air 05/01/17 19:00 68 05/01/17 16:00 70 05/01/17 15:00 77 18 184/84 (117) 96 05/01/17 15:00 72 05/01/17 14:00 78 05/01/17 13:00 88 05/01/17 12:30 97.8 65 20 150/67 (94) 98 Nasal Cannula 2 05/01/17 12:29 96 Nasal Cannula 2.00 05/01/17 12:15 65 20 166/73 (104) 96 Nasal Cannula 2 05/01/17 12:00 70 20 164/77 (106) 97 Nasal Cannula 2 05/01/17 11:45 67 20 144/67 (92) 96 Nasal Cannula 2 05/01/17 11:35 97.8 79 20 134/60 (84) 96 Nasal Cannula 2 05/01/17 11:32 96 Room Air 05/01/17 11:00 77 18 184/84 (117) 96 05/01/17 11:00 72 (Cris Telles) -: 05/02/17 0930 05/01/17 0616 Tubes & Lines: Vas-Cath (Cris Telles) Physical Exam General Appearance: Well Developed, Well Nourished, No Acute Distress, Comfortable (Cris Telles) Eyes Eye Exam: Pupils Equal, Pupils Reactive (Cris Telles) Throat Throat Exam: Oral Mucosa [place] & Moist (Cris Telles) Neck Neck Exam: Neck Supple (Cris Telles) Pulmonary Resp Exam: No Distress, Crackles, Rhonchi, Decreased Bases, Diminished Breath Sounds (Cris Telles) Cardiology CV Exam: Regular, Normal Sinus Rhythm, Good Perfusion (Cris Telles) Gastrointestinal/Abdomen GI Exam: Soft, Non-Tender, Bowel Sounds Present GI Remarks RLQ ecchymosis (Cris Telles) Genitourinary Exam: Clear Urine (Cris Telles) Musculoskeletal MS Exam: Joints Intact, Normal Tone, Good Strength (Cris Telles) Integumentary Skin Exam: Clear, Warm, Dry, Intact (Cris Telles) Extremeties Extremities Exam: Pedal Pulses Palpable, Trace Edema, Pitting Edema (Cris Telles) Neurologic Neuro Exam: Alert, Awake, Oriented, Speech Clear, Moving All Extremities (Cris Telles) Psychiatric Psych Exam: Appropriate Responses (Cris Telles) Assessment/Plan Discussed Condition With: Patient, Daughter Assessment Summary: LEEANN/Acute Renal Failure, [place] Hyperparathyroid, Fluid/ Volume Overload, Proteinuria, Hypertension, Diabetes Mellitus, CKD Stage IV Electrolyte Assessment: Hypocalcemia, Hyponatremia Problem List: (1) Acute on chronic kidney failure ICD Codes: N17.9 - Acute kidney failure, unspecified; N18.9 - Chronic kidney disease, unspecified Status: Acute Plan: She has advanced renal disease, Creatinine 2.8 at baseline, CKD 4 Suspected underlying diabetic nephropathy, heavy proteinuria in the past She has required intermittent dialysis this admission both for fluid removal and post cardiac catheterization HD Monday with 3.5 liters fluid removal Continue Bumex, she still has edema and is making urine Repeat labs tomorrow She is tentatively on MWF HD schedule, we will dialyze after cath tomorrow Will need PermCath most likely. It remains to be seen if she will require prison HD. Avoid IVF, nephrotoxins. Monitor urine output. (2) NSTEMI (non-ST elevated myocardial infarction) ICD Codes: I21.4 - Non-ST elevation (NSTEMI) myocardial infarction Status: Acute Plan: Cardiology is following Plan for 3rd cath Monday 2D echo: LVH, EF 45-50% Brilinta (3) DM2 (diabetes mellitus, type 2) ICD Codes: E11.9 - Type 2 diabetes mellitus without complications Status: Chronic Plan: Insulin as needed to maintain glucose of 140-180 mg/dL while hospitalized (4) Metabolic bone disease ICD Codes: E88.9 - Metabolic disorder, unspecified; M90.80 - Osteopathy in diseases classified elsewhere, unspecified site Plan: Continue Calcium acetate On calcitriol for secondary hyperparathyroidism (5) Metabolic acidosis ICD Codes: E87.2 - Acidosis Status: Acute Plan: Corrected Follow metabolic profile (6) COPD with acute exacerbation ICD Codes: J44.1 - Chronic obstructive pulmonary disease with (acute) exacerbation Plan: On nebulizers, oxygen She is also on Levaquin and solumedrol (7) Anemia ICD Codes: D64.9 - Anemia, unspecified Status: Acute Plan: she received 2 units over the weekend. Monitor Hb Repeat CT abd/pelvis confirmed hematoma (8) Hyperkalemia ICD Codes: E87.5 - Hyperkalemia; N18.9 - Chronic kidney disease, unspecified Status: Resolved Plan: Due to reduction in GFR and metabolic acidosis Improved with dialysis, monitor for recurrence (Cris Telles) Plan patient was seen and examined. Agree with above assessment and plan. Non oliguric, remains to be seen if we can stop dialysis. Cath is planned for Monday. (Fantasma Corral MD) Problem Qualifiers (1) Acute on chronic kidney failure: Qualified Codes: N17.9 - Acute kidney failure, unspecified; N18.9 - Chronic kidney disease, unspecified (2) DM2 (diabetes mellitus, type 2): (3) Anemia: Qualified Codes: D64.9 - Anemia, unspecified Cris Telles May 02, 2017 10:21 Fantasma Corral MD May 03, 2017 10:21
[2017-05-02 10:24] LABS: BICARBONATE 29.3 MEQ/L (21.0-32.0)
[2017-05-02 11:11] LABS: POTASSIUM 4.2 MEQ/L (3.5-5.1)
--- NOTE | 2017-05-02 12:52 | PD.CARD.PN ---
Subjective Subjective Remarks Patient was seen this morning, note late entry Feels well Pain with right groin stable Objective Medications Current Medications Medications (Trade) Dose Ordered Sig/Des Route Start Time Stop Time Status Last Admin (Duoneb Neb) 1 ampule Q4HR NEB PRN INH 04/21/17 06:45 Miscellaneous Information 1 Q361D XX 04/21/17 06:45 (Chlorhexidine 2% Cloth) Taper DAILY@04 TOP 04/22/17 04:00 04/18/18 03:59 04/27/17 00:35 (Chlorhexidine 2% Cloth) 3 pack UNSCH PRN TOP 04/21/17 06:45 (Malaika-Colace) 1 tab BID PO 04/21/17 09:00 05/02/17 08:32 (Milk Of Magnesia Liq) 30 ml Q12H PRN PO 04/21/17 06:45 (Senokot) 17.2 mg Q12H PRN PO 04/21/17 06:45 05/02/17 12:22 (Dulcolax Supp) 10 mg DAILY PRN RECTAL 04/21/17 06:45 (Lactulose Liq) 30 ml DAILY PRN PO 04/21/17 06:45 (Aspirin Chew) 81 mg DAILY CHEW 04/22/17 09:00 05/02/17 08:32 (Coreg) 3.125 mg Q12HR PO 04/21/17 09:00 05/02/17 08:32 (Lipitor) 10 mg HS PO 04/21/17 21:00 05/01/17 21:50 (Vitamin B12) 500 mcg DAILY PO 04/21/17 09:00 05/02/17 08:32 (Synthroid) 50 mcg DAILY@0600 PO 04/21/17 07:00 05/02/17 06:12 (SoluMEDROL INJ) 60 mg Q12HR IV PUSH 04/21/17 11:30 05/02/17 08:31 Levofloxacin/ Dextrose 100 ml @ 100 mls/hr Q48H IV 04/21/17 12:00 05/01/17 12:00 (Restoril) 15 mg HS PRN PO 04/21/17 20:45 04/30/17 23:02 Sodium Chloride 1,000 ml @ 0 mls/hr Q0M PRN OTHER 04/22/17 14:04 (Heparin Inj) 8,000 units UNSCH PRN IV FLUSH 04/22/17 14:15 05/01/17 16:27 Sodium Chloride 1,000 ml @ 200 mls/hr Q5H PRN IV 04/22/17 14:04 Sodium Chloride 1,000 ml @ 0 mls/hr Q0M PRN OTHER 04/22/17 14:04 (Mannitol Inj) 12.5 gm UNSCH PRN IV 04/22/17 14:15 Albumin Human 100 ml @ 60 mls/hr UNSCH PRN IV 04/22/17 14:15 05/01/17 16:40 (NS Flush) 5 ml UNSCH PRN IV FLUSH 04/22/17 14:15 (Heparin Inj) UNSCH PRN .XX 04/22/17 14:15 05/01/17 16:52 (Gentamicin (Dialysis) Inj) 20 mg UNSCH PRN OTHER 04/22/17 14:15 05/01/17 16:52 (Zofran Inj) 4 mg UNSCH PRN IV PUSH 04/22/17 14:15 (Tylenol) 650 mg UNSCH PRN PO 04/22/17 14:15 04/25/17 12:21 (Benadryl) 25 mg UNSCH PRN PO 04/22/17 14:15 (Nitrostat Sl) 0.4 mg UNSCH PRN SL 04/22/17 14:15 (Catapres) 0.1 mg UNSCH PRN PO 04/22/17 14:15 04/27/17 22:31 (Gelfoam 12 Mm/7 Mm Top) 1 foam UNSCH PRN TOP 04/22/17 14:15 (Apresoline Inj) 10 mg Q30M PRN IV PUSH 04/23/17 13:15 05/01/17 10:58 (Phoslo) 2,001 mg TID PO 04/23/17 18:00 05/02/17 12:18 (Rocaltrol) 0.25 mcg DAILY PO 04/24/17 09:15 05/02/17 08:32 (Atropine Inj) 0.5 mg UNSCH PRN IV PUSH 04/24/17 10:00 (NS Flush) 2 ml BID IV FLUSH 04/24/17 21:00 05/02/17 08:34 (NS Flush) 2 ml UNSCH PRN IV FLUSH 04/24/17 15:45 (D50w (Vial) Inj) 50 ml UNSCH PRN IV PUSH 04/24/17 15:45 (Morphine Inj) 2 mg Q3H PRN IV PUSH 04/26/17 09:30 04/29/17 13:33 (Bumex Inj) 2 mg BID@09,18 IV PUSH 04/26/17 20:45 05/02/17 08:31 (Brilinta) 90 mg BID PO 04/29/17 09:00 05/02/17 08:32 (Percocet 5-325 Mg) 1 tab Q4H PRN PO 04/29/17 13:30 (Percocet 10-325 Mg) 1 tab Q4H PRN PO 04/29/17 13:30 05/02/17 08:55 (NovoLOG SUPPLEMENTAL SCALE) 1 ACHS SQ 04/30/17 21:00 05/02/17 12:18 (Levemir Inj) 5 units Q12HR SQ 04/30/17 21:00 05/02/17 08:30 (Glucagon Inj) 1 mg UNSCH PRN OTHER 04/30/17 18:15 (Protonix) 40 mg DAILY PO 05/01/17 12:30 05/02/17 08:32 (Reglan) 5 mg BIDAC PO 05/01/17 12:15 05/02/17 06:12 Vital Signs / I&O Vital Signs Date Time Temp Pulse Resp B/P (MAP) Pulse Ox O2 Delivery O2 Flow Rate FiO2 05/02/17 11:00 70 05/02/17 11:00 98.5 75 18 137/69 (91) 96 05/02/17 10:00 74 05/02/17 09:00 76 05/02/17 08:00 72 05/02/17 07:00 98.3 75 16 158/72 (100) 94 05/02/17 07:00 70 05/02/17 06:00 77 05/02/17 05:00 70 05/02/17 04:00 72 05/02/17 03:00 98.1 70 18 141/70 (93) 97 05/02/17 03:00 70 05/02/17 02:00 76 05/02/17 01:00 80 05/02/17 00:00 70 05/01/17 23:00 69 05/01/17 23:00 97.7 69 18 164/76 (105) 95 05/01/17 22:00 68 05/01/17 21:00 72 05/01/17 20:31 21 05/01/17 20:00 98.4 71 18 161/77 (105) 95 05/01/17 20:00 74 05/01/17 20:00 95 Room Air 05/01/17 19:00 68 05/01/17 16:00 70 05/01/17 15:00 77 18 184/84 (117) 96 05/01/17 15:00 72 05/01/17 14:00 78 05/01/17 13:00 88 I/O 05/01/17 05/01/17 05/01/17 05/02/17 05/02/17 05/02/17 07:00 15:00 23:00 07:00 15:00 23:00 Intake Total 480 ml 75 ml 240 ml Output Total 1100 ml 3500 ml 1875 ml Balance -620 ml 75 ml -3500 ml -1635 ml Intake Oral 480 ml 240 ml Other 75 ml Output Urine Total 1100 ml 1875 ml Hemodialysis 3500 ml # Bowel Movements 0 Physical Exam GENERAL: NAD, AAOx3 SKIN: Warm and dry. HEAD: Atraumatic. Normocephalic. EYES: Pupils equal and round. No scleral icterus. No injection or drainage. ENT: No nasal bleeding or discharge. Mucous membranes pink and moist. NECK: Trachea midline. No JVD. CARDIOVASCULAR: Regular rate and rhythm. RESPIRATORY: No accessory muscle use. Clear to auscultation. Breath sounds equal bilaterally. GASTROINTESTINAL: Abdomen soft, non-tender, nondistended. Hepatic and splenic margins not palpable. MUSCULOSKELETAL: Extremities without clubbing, cyanosis, or edema. No obvious deformities. Right abdominal wall with large ecchymosis, left femoral no hematoma/bruit NEUROLOGICAL: Awake and alert. No obvious cranial nerve deficits. Motor grossly within normal limits. Five out of 5 muscle strength in the arms and legs. Normal speech. PSYCHIATRIC: Appropriate mood and affect; insight and judgment normal. Laboratory Laboratory Tests Test 05/01/17 13:18 05/02/17 09:30 White Blood Count 21.9 TH/MM3 19.8 TH/MM3 Red Blood Count 3.55 MIL/MM3 2.65 MIL/MM3 Hemoglobin 11.1 GM/DL 8.4 GM/DL Hematocrit 32.3 % 24.1 % Mean Corpuscular Volume 91.2 FL 91.0 FL Mean Corpuscular Hemoglobin 31.3 PG 31.8 PG Mean Corpuscular Hemoglobin Concent 34.4 % 34.9 % Red Cell Distribution Width 15.6 % 15.6 % Platelet Count 124 TH/MM3 121 TH/MM3 Mean Platelet Volume 9.3 FL 9.3 FL Neutrophils (%) (Auto) 95.8 % Lymphocytes (%) (Auto) 1.1 % Monocytes (%) (Auto) 2.9 % Eosinophils (%) (Auto) 0.0 % Basophils (%) (Auto) 0.2 % Neutrophils # (Auto) 21.0 TH/MM3 Lymphocytes # (Auto) 0.2 TH/MM3 Monocytes # (Auto) 0.6 TH/MM3 Eosinophils # (Auto) 0.0 TH/MM3 Basophils # (Auto) 0.0 TH/MM3 CBC Comment DIFF FINAL Differential Comment Activated Partial Thromboplast Time 24.0 SEC Blood Urea Nitrogen 102 MG/DL Creatinine 4.16 MG/DL Random Glucose 245 MG/DL Albumin 3.1 GM/DL Calcium Level 7.7 MG/DL Phosphorus Level 4.8 MG/DL Sodium Level 135 MEQ/L Potassium Level 4.2 MEQ/L Chloride Level 96 MEQ/L Carbon Dioxide Level 29.3 MEQ/L Anion Gap 10 MEQ/L Estimat Glomerular Filtration Rate 11 ML/MIN Assessment and Plan Problem List: (1) NSTEMI (non-ST elevated myocardial infarction) ICD Codes: I21.4 - Non-ST elevation (NSTEMI) myocardial infarction Status: Acute (2) Acute on chronic kidney failure ICD Codes: N17.9 - Acute kidney failure, unspecified; N18.9 - Chronic kidney disease, unspecified Status: Acute (3) HTN (hypertension) ICD Codes: I10 - HTN (hypertension) Status: Chronic (4) HLD (hyperlipidemia) ICD Codes: E78.5 - HLD (hyperlipidemia) Status: Chronic (5) Anemia ICD Codes: D64.9 - Anemia, unspecified Status: Acute Assessment and Plan 1) NSTEMI/CAD Multivessel CAD ASA/BB/Statin/Brilinta Turned down for CABG s/p PCI of LCX with DESx2 (mid 2.5x22, distal 2.25x15 overlapped), PCI OM1 with ROMAN (2.25x18) Will plan for PCI of LAD tomorrow if Hgb stable Concern for drop in Hgb, but will need to be to be watched post- anticoagulation, discussed with patient, better now than if she was elective in a few months 2) LEEANN on CKD HD started Still making urine with increased output Attempt to decrease nephrotoxin medications (contrast) if possible, not sure if chronic yet 3) Anemia Post-procedure Now with right groin hematoma No PSA or RPB Most likely layering now, will continue to follow Significant drop in Hgb after heparin during PCI, Heme positive stools Discussed with GI, no significant GI bleed noted in the stomach Problem Qualifiers (1) Acute on chronic kidney failure: Qualified Codes: N17.9 - Acute kidney failure, unspecified; N18.9 - Chronic kidney disease, unspecified (2) HTN (hypertension): Qualified Codes: I10 - Essential (primary) hypertension (3) HLD (hyperlipidemia): Qualified Codes: E78.5 - Hyperlipidemia, unspecified (4) Anemia: Qualified Codes: D64.9 - Anemia, unspecified Hemanth Cole DO May 02, 2017 12:52
--- NOTE | 2017-05-02 13:38 | RADRPT ---
EXAM DATE/TIME: 05/02/2017 12:26 [facility] COMPARISON: No previous studies available for comparison. INDICATIONS : Pre-OP CABG. MEDICAL HISTORY : Hypercholesterolemia. Hypertension. Gastroesophageal reflux disease. Hypothyroidism. CVA. CHF. Diabet es, type 2. Anemia. SURGICAL HISTORY : Appendectomy. section. ENCOUNTER: Initial ACUITY: 1 day PAIN SCORE: 0/10 LOCATION: Bilateral neck PEAK SYSTOLIC VELOCITIES (cm/sec): ICA/CCA RATIO: Right: Non-visualized Left: 1.7 ICA: Right: Non-visualized Left: 135 CCA: Right: Non-visualized Left: 82 ECA: Right: Non-visualized Left: 186 VERTEBRAL: Right: Non-visualized Left: 79 antegrade Elevated flow velocities and ICA/CCA ratios have been found to correlate with increased degrees of vessel stenosis, calculated as percentage of diameter relative to a normal segment of distal ICA/CCA FINDINGS: RIGHT CAROTID: The right carotid system is not visualized secondary to a central line and bandaging obscuring the ri ght neck. LEFT CAROTID: There is moderate calcified plaque in the carotid bulb and proximal internal carotid artery. VERTEBRAL ARTERIES: Antegrade flow is seen in the left vertebral artery. Right vertebral artery is not visualized. MISCELLANEOUS: None. CONCLUSION: 1. Moderate calcified plaque in the left carotid bulb and proximal internal carotid artery with kyra mated 50-69% stenosis based on velocity measurements. 2. The right carotid system is not evaluated since it was obscured by a central line. Keegan Santos MD on May 02, 2017 at 13:28 Board Certified Radiologist. This report was verified electronically.
--- NOTE | 2017-05-02 13:41 | HHI.GIFU ---
Subjective Remarks Pt OOB to chair in NAD. No nausea. Cites some tenderness at hematoma site. Going for cath tomorrow. (Liane Gill) Objective Vitals I&O Vital Signs Date Time Temp Pulse Resp B/P (MAP) Pulse Ox O2 Delivery O2 Flow Rate FiO2 05/02/17 13:00 83 05/02/17 12:00 86 05/02/17 11:00 70 05/02/17 11:00 98.5 75 18 137/69 (91) 96 05/02/17 10:00 74 05/02/17 09:00 76 05/02/17 08:00 72 05/02/17 07:00 98.3 75 16 158/72 (100) 94 05/02/17 07:00 70 05/02/17 06:00 77 05/02/17 05:00 70 05/02/17 04:00 72 05/02/17 03:00 98.1 70 18 141/70 (93) 97 05/02/17 03:00 70 05/02/17 02:00 76 05/02/17 01:00 80 05/02/17 00:00 70 05/01/17 23:00 69 05/01/17 23:00 97.7 69 18 164/76 (105) 95 05/01/17 22:00 68 05/01/17 21:00 72 05/01/17 20:31 21 05/01/17 20:00 98.4 71 18 161/77 (105) 95 05/01/17 20:00 74 05/01/17 20:00 95 Room Air 05/01/17 19:00 68 05/01/17 16:00 70 05/01/17 15:00 77 18 184/84 (117) 96 05/01/17 15:00 72 05/01/17 14:00 78 I/O 05/01/17 05/01/17 05/01/17 05/02/17 05/02/17 05/02/17 07:00 15:00 23:00 07:00 15:00 23:00 Intake Total 480 ml 75 ml 240 ml Output Total 1100 ml 3500 ml 1875 ml Balance -620 ml 75 ml -3500 ml -1635 ml Intake Oral 480 ml 240 ml Other 75 ml Output Urine Total 1100 ml 1875 ml Hemodialysis 3500 ml # Bowel Movements 0 Laboratory Laboratory Tests Test 05/02/17 09:30 White Blood Count 19.8 Red Blood Count 2.65 Hemoglobin 8.4 Hematocrit 24.1 Mean Corpuscular Volume 91.0 Mean Corpuscular Hemoglobin 31.8 Mean Corpuscular Hemoglobin Concent 34.9 Red Cell Distribution Width 15.6 Platelet Count 121 Mean Platelet Volume 9.3 Activated Partial Thromboplast Time 24.0 Blood Urea Nitrogen 102 Creatinine 4.16 Random Glucose 245 Albumin 3.1 Calcium Level 7.7 Phosphorus Level 4.8 Sodium Level 135 Potassium Level 4.2 Chloride Level 96 Carbon Dioxide Level 29.3 Anion Gap 10 Estimat Glomerular Filtration Rate 11 Date/Time Source Procedure Growth Status 04/29/17 09:30 Stool Stool Stool Occult Blood (CHUCK) - Final HEMOCCULT POSITIVE Complete 04/21/17 04:40 Nasal Aspirate Influenza Types A,B Antigen (CHUCK) - Final NEGATIVE FOR FLU A AND B ANTIGEN.... Complete 04/21/17 08:20 Urine Catheterized Urine Urine Culture - Final NO GROWTH IN 48 HOURS. Complete Imaging Last Impressions Abdomen/Pelvis CT 04/29/17 0000 Signed Impressions: Service Date/Time: Saturday, April 29, 2017 10:38 - CONCLUSION: 1. Stable large right groin hematoma. 2. Vicarious excretion of contrast by the gallbladder and persistent contrast opacification of the kidneys characteristic of renal insufficiency. 3. Colonic diverticulosis without evidence of active inflammatory changes. 4. No evidence of acute process in the abdomen or pelvis. Reuben Carr MD Catheter Placement X-Ray 04/28/17 0000 Signed Impressions: Service Date/Time: Friday, April 28, 2017 16:14 - CONCLUSION: Uncomplicated venous catheter change as above. Stoney Morrow MD Lower Extremity Ultrasound 04/26/17 0000 Signed Impressions: Service Date/Time: Wednesday, April 26, 2017 14:24 - CONCLUSION: Large groin hematoma. No evidence of pseudoaneurysm Keegan Cedeno MD Chest X-Ray 04/22/17 0600 Signed Impressions: Service Date/Time: Saturday, April 22, 2017 02:19 - CONCLUSION: No acute cardiopulmonary disease identified. Trevor Townsend MD Renal Ultrasound 04/21/17 0000 Signed Impressions: Service Date/Time: Friday, April 21, 2017 17:11 - CONCLUSION: Stone in the lateral left kidney. No evidence of hydronephrosis or solid mass. No evidence of obstruction. Kirill Linder MD Physical Exam HEENT: PERRL; normocephalic; atraumatic; no jaundice. CHEST: diminshed CARDIAC: RRR ABDOMEN: Soft, nondistended, TTP RLQ & LLQ; no hepatosplenomegaly; bowel sounds are present in all four quadrants. EXTREMITIES: No clubbing, cyanosis, +1 pitting BLE edema. SKIN: Normal; no rash; no jaundice. PROCESS SAFETY ENGINEER: No focal deficits; alert and oriented times three. (Liane Gill NEWS OPERATIONS MANAGER) Assessment and Plan Plan ASSESSMENT: - Anemia with drop in Hgb. Pt had significant drop in Hgb after the cardiac cath. CT Scan at that time noted right inguinal and right lower quadrant abdominal wall hematoma measuring up to 8.8cm with surrounding subcutaneous inflammatory changes which extend into the mons pubis region. She was given 2 units of PRBC and responded appropriately, but then dropped again on 04/29 to 6.3/19.1. She was given an additional 2 units of PRBC and her H/H is now 10.1/29.3. Of note, she was found to have extensive ecchymosis to her right flank/right lower abdomen/groin. CT scan abdomen and pelvis (04/29/17)---> Stable large right groin hematoma , vicarious excretion of contrast by the gallbladder and persistent contrast opacification of the kidneys characteristic of renal insufficiency, colonic diverticulosis without evidence of active inflammatory changes, no evidence of acute process in the abdomen or pelvis. Stool hemoccult (+). GI was consulted for further evaluation. EGD/Colonoscopy (04/21/15)--> gastritis antrum, normal duodenum, retroflexed views revealed a hiatal hernia, diverticulosis sigmoid, descending semisolid stool throughout the colon, no gross lesions seen, retroflexed views revealed medium internal hemorrhoids, external hemorrhoids , decreased sphincter tone. Pathology duodenal mucosa without significant histopathologic abnormality, mild chronic gastritis, negative for H. Pylori. It was recommended that she have a repeat colonoscopy in 3 months with consideration for a capsule endoscopy. PPI. HH stable 10.1/29.3. No GI symptoms or active bleeding at this time. Likely her anemia is related to her hematoma. - Hemoccult (+). Last EGD/Colonoscopy in 2014 as above. No obvious active GI bleeding. - Hematoma. Had drop in Hgb after cardiac cath, CT revelaed right inguinal and right lower quadrant abdominal wall hematoma measuring up to 8.8cm with surrounding subcutaneous inflammatory changes which extend into the mons pubis region. Rpt. CT Scan with stable large right groin hematoma. Monitor HH - NSTEMI/CAD. S/P left heart catheterization (04/24/17)----> multivessel coronary artery disease, new cardiomyopathy with EF of 45-50%. Cardiac thoracic surgery was consulted for evaluation for CABG and she was restarted on heparin, ASA/BB/statin. Heparin now on hold because of hematoma. - Acute on chronic kidney disease with electrolyte abnormalities. S/P vascath, HD. - COPD, HTN, DM, Hypothyroidism, Secondary hyperparathyroidism, per attending. 05/02/17 - s/p EGD found gastritis, lg amt food residue consistent with gastroparesis, no bleeding seen. REglan, PPI started. Hgb did drop to 8.4, no obvious bleeding PLAN: - VANGIE - cont PPI - cont reglan - Monitor HH - Transfuse as necessary - Supportive care - further w/u as outpatient - Pt seen and examined by Dr. East and myself and this note is written on his behalf (Liane Gill) Physician Comments Patient seen and examined Agree with above Continue with current supportive care Monitor labs Hemoglobin down again without any obvious active GI bleed We continue to monitor and transfuse as needed (Moi East MD) Liane Gill May 02, 2017 13:41 Moi East MD May 02, 2017 19:18
[2017-05-02] MEDS: ATORVASTATIN 10 MG TAB PO SCH (21:12)
[2017-05-02] MEDS: methylPREDNISolone SOD SUCC 40 MG/1 ML VIAL IV PUSH SCH (21:13)
[2017-05-02] MEDS: oxyCODONE/ACETAMINOPHEN 5 MG/325 MG TAB PO PRN (21:14)
[2017-05-02 22:38] LABS: HEMATOCRIT 24.2 % (35.0-46.0); REVIEW FLAG FINAL
[2017-05-02] MEDS: TEMAZEPAM 15 MG CAP PO PRN (23:16)
[2017-05-03] VITALS (19 sets, daily range): BP systolic 124–169; BP diastolic 68–76; PULSE 68–95; RESP 16–18; TEMP 97.1–98.7; O2SAT 95–98
[2017-05-03] MEDS: CHLORHEXIDINE GLUCONATE 2 % 1 PACK (2 CLOTHS) TOP SCH (04:00)
[2017-05-03] MEDS: METOCLOPRAMIDE HCL 10 MG TAB PO SCH ×2 (06:06→17:26)
[2017-05-03] MEDS: LEVOTHYROXINE SODIUM 50 MCG TAB PO SCH (06:06)
[2017-05-03 06:21] LABS: AUTOMATED NEUTROPHIL # 18.6 TH/MM3 (1.8-7.7); BASOPHIL # 0.1 TH/MM3 (0-0.2); BASOPHIL % 0.4 % (0.0-2.0); HEMATOCRIT 24.5 % (35.0-46.0); HEMO FLAGS DIFF FINAL; LYMPH % 1.3 % (9.0-44.0); LYMPHOCYTE # 0.3 TH/MM3 (1.0-4.8); MEAN CELL VOLUME 91.9 FL (80.0-100.0); MEAN CORPUSCULAR HEMOGLOBIN 30.1 PG (27.0-34.0); MEAN CORPUSCULAR HGB CONC 32.8 % (32.0-36.0); MONO % 4.8 % (0.0-8.0); NEUT % 93.5 % (16.0-70.0); PLATELET COUNT 130 TH/MM3 (150-450); RED BLOOD COUNT 2.67 MIL/MM3 (4.00-5.30); RED CELL DISTRIBUTION WIDTH 15.3 % (11.6-17.2); WHITE BLOOD COUNT 19.9 TH/MM3 (4.0-11.0)
[2017-05-03 06:30] LABS: APTT (PATIENT) 23.1 SEC (24.3-30.1)
[2017-05-03 07:08] LABS: BICARBONATE 30.3 MEQ/L (21.0-32.0); POTASSIUM 4.2 MEQ/L (3.5-5.1)
[2017-05-03] MEDS: INSULIN ASPART SUPPLEMENTAL SCALE SQ SCH ×4 (08:00→20:41)
[2017-05-03] MEDS: TICAGRELOR 90 MG TAB PO SCH ×2 (08:10→20:40)
[2017-05-03] MEDS: INSULIN DETEMIR 100 UNITS/ML VIAL SQ SCH ×2 (08:10→20:41)
[2017-05-03] MEDS: ASPIRIN 81 MG CHEW TAB CHEW SCH (08:10)
[2017-05-03] MEDS: CARVEDILOL 3.125 MG TAB PO SCH ×2 (08:10→20:40)
[2017-05-03] MEDS: CALCIUM ACETATE 667 MG CAP PO SCH ×3 (09:00→17:23)
[2017-05-03] MEDS: PANTOPRAZOLE SOD 40 MG DELAYED RELEASE TAB PO SCH (09:00)
[2017-05-03] MEDS: BUMETANIDE INJ 1 MG/4 ML VIAL IV PUSH SCH ×2 (09:00→17:24)
[2017-05-03] MEDS: CYANOCOBALAMIN 1,000 MCG TAB PO SCH (09:00)
[2017-05-03] MEDS: CALCITRIOL 0.25 MCG CAP PO SCH (09:00)
--- NOTE | 2017-05-03 09:27 | HHI.NPPN ---
Subjective General Problems: Anemia, Edema Renal Failure: Chronic, Acute, Stage IV Interval History Her cardiac catheterization is postponed until this afternoon. Seen during dialysis. (Cris Telles) Review of Systems General Constitutional: Fatigue (Cris Telles) Respiratory Lungs: SOB (Cris Telles) Cardiovascular Cardiac: Edema, HAIR (Cris Telles) Objective Data Data Vital Signs Date Time Temp Pulse Resp B/P (MAP) Pulse Ox O2 Delivery O2 Flow Rate FiO2 05/03/17 07:00 97.5 70 18 161/76 (104) 96 05/03/17 06:00 71 05/03/17 05:00 88 05/03/17 04:00 93 05/03/17 03:00 95 05/03/17 03:00 98.7 69 16 147/74 (98) 95 05/03/17 02:00 68 05/03/17 01:00 71 05/03/17 00:00 68 05/02/17 23:00 68 05/02/17 23:00 98.6 68 16 165/75 (105) 96 05/02/17 22:00 74 05/02/17 21:00 78 05/02/17 20:00 78 05/02/17 20:00 98.5 79 16 158/80 (106) 96 05/02/17 19:40 97 05/02/17 19:00 82 05/02/17 18:00 80 05/02/17 17:00 75 05/02/17 16:00 80 05/02/17 15:57 98.2 77 18 152/71 (98) 96 05/02/17 15:00 82 05/02/17 14:35 77 05/02/17 13:00 83 05/02/17 12:00 86 05/02/17 11:00 70 05/02/17 11:00 98.5 75 18 137/69 (91) 96 05/02/17 10:00 74 (Cris Telles) -: 05/03/17 0600 05/03/17 0600 Imaging Last 72 hours Impressions Carotid Artery Ultrasound 05/02/17 0000 Signed Impressions: Service Date/Time: Ekaterina, May 02, 2017 12:26 - CONCLUSION: 1. Moderate calcified plaque in the left carotid bulb and proximal internal carotid artery with estimated 50-69%% stenosis based on velocity measurements. 2. The right carotid system is not evaluated since it was obscured by a central line. Keegan Santos MD Tubes & Lines: Vas-Cath (Cris Telles B. RESIDENT CARE COORDINATOR) Physical Exam General Appearance: Well Developed, Well Nourished, No Acute Distress, Comfortable (ElfegoCris B. RESIDENT CARE COORDINATOR) Eyes Eye Exam: Pupils Equal, Pupils Reactive (ElfegoCris B. RESIDENT CARE COORDINATOR) Throat Throat Exam: Oral Mucosa [place] & Moist (Elfego,Cris B. RESIDENT CARE COORDINATOR) Neck Neck Exam: Neck Supple (ElfegoCris B. RESIDENT CARE COORDINATOR) Pulmonary Resp Exam: No Distress, Crackles, Rhonchi, Decreased Bases, Diminished Breath Sounds (ElfegoCris B. RESIDENT CARE COORDINATOR) Cardiology CV Exam: Regular, Normal Sinus Rhythm, Good Perfusion (ElfegoCris B. RESIDENT CARE COORDINATOR) Gastrointestinal/Abdomen GI Exam: Soft, Non-Tender, Bowel Sounds Present GI Remarks RLQ ecchymosis (ElfegoCris B. RESIDENT CARE COORDINATOR) Genitourinary Exam: Clear Urine (ElfegoCris B. RESIDENT CARE COORDINATOR) Musculoskeletal MS Exam: Joints Intact, Normal Tone, Good Strength (ElfegoCris B. RESIDENT CARE COORDINATOR) Integumentary Skin Exam: Clear, Warm, Dry, Intact (ElfegoCris B. RESIDENT CARE COORDINATOR) Extremeties Extremities Exam: Pedal Pulses Palpable, Trace Edema, Pitting Edema (ElfegoCris B. RESIDENT CARE COORDINATOR) Neurologic Neuro Exam: Alert, Awake, Oriented, Speech Clear, Moving All Extremities (ElfegoCris B. RESIDENT CARE COORDINATOR) Psychiatric Psych Exam: Appropriate Responses (ElfegoCris B. RESIDENT CARE COORDINATOR) Assessment/Plan Discussed Condition With: Patient, Daughter Assessment Summary: LEEANN/Acute Renal Failure, [place] Hyperparathyroid, Fluid/ Volume Overload, Proteinuria, Hypertension, Diabetes Mellitus, CKD Stage IV Electrolyte Assessment: Hypocalcemia, Hyponatremia Problem List: (1) Acute on chronic kidney failure ICD Codes: N17.9 - Acute kidney failure, unspecified; N18.9 - Chronic kidney disease, unspecified Status: Acute Plan: She has advanced renal disease, Creatinine 2.8 at baseline, CKD 4 Suspected underlying diabetic nephropathy, heavy proteinuria in the past She has required intermittent dialysis this admission both for fluid removal and post cardiac catheterization Dialyzed on Monday Seen during dialysis today on a 3K, 350 BFR, goal 3L Continue Bumex, she still is making urine Repeat labs tomorrow Will need PermCath most likely. It remains to be seen if she will require nursing home HD. Avoid IVF, nephrotoxins. Monitor urine output. (2) NSTEMI (non-ST elevated myocardial infarction) ICD Codes: I21.4 - Non-ST elevation (NSTEMI) myocardial infarction Status: Acute Plan: Cardiology is following Plan for 3rd cath later this afternoon 2D echo: LVH, EF 45-50% Brilinta (3) DM2 (diabetes mellitus, type 2) ICD Codes: E11.9 - Type 2 diabetes mellitus without complications Status: Chronic Plan: Insulin as needed to maintain glucose of 140-180 mg/dL while hospitalized (4) Metabolic bone disease ICD Codes: E88.9 - Metabolic disorder, unspecified; M90.80 - Osteopathy in diseases classified elsewhere, unspecified site Plan: Continue Calcium acetate On calcitriol for secondary hyperparathyroidism (5) Metabolic acidosis ICD Codes: E87.2 - Acidosis Status: Acute Plan: Corrected Follow metabolic profile (6) COPD with acute exacerbation ICD Codes: J44.1 - Chronic obstructive pulmonary disease with (acute) exacerbation Plan: On nebulizers, oxygen She is also on Levaquin and solumedrol (7) Anemia ICD Codes: D64.9 - Anemia, unspecified Status: Acute Plan: she received 2 units over the weekend. Monitor Hb Repeat CT abd/pelvis confirmed hematoma (8) Hyperkalemia ICD Codes: E87.5 - Hyperkalemia; N18.9 - Chronic kidney disease, unspecified Status: Resolved Plan: Due to reduction in GFR and metabolic acidosis Improved with dialysis, monitor for recurrence (Cris Telles) Plan patient was seen and examined. Seen during dialysis, non oliguric, but high waste products. Cath is planned. It is unclear if she has reached ESRD. Worsening anemia is noted. Obtain iron studies. (Fantasma Corral MD) Problem Qualifiers (1) Acute on chronic kidney failure: Qualified Codes: N17.9 - Acute kidney failure, unspecified; N18.9 - Chronic kidney disease, unspecified (2) DM2 (diabetes mellitus, type 2): (3) Anemia: Qualified Codes: D64.9 - Anemia, unspecified Cris Telles May 03, 2017 09:27 Fantasma Corral MD May 03, 2017 20:59
[2017-05-03] MEDS: ALBUMIN 25% INJ 100 ML IV PRN (11:17)
[2017-05-03] MEDS: GENTAMICIN SULFATE (DIALYSIS USE ONLY) 20 MG/2 ML VIAL OTHER PRN (11:17)
[2017-05-03] MEDS: HEPARIN SODIUM - IV 10,000 UNITS/10 ML VIAL IV FLUSH PRN (11:17)
[2017-05-03] MEDS: HEPARIN SODIUM - IV 10,000 UNITS/10 ML VIAL PRN (11:17)
--- NOTE | 2017-05-03 12:23 | HHI.FPPN ---
Subjective Remarks Mrs. Alicia was afebrile with stable VS overnight (mild HTN with SBP max of 161) ; patient seen during dialysis. Patient does not report chest pain or shortness of breath. Patient has some continued pain with groin hematoma and in her back. Patient reports continued urination (1400ml overnight). (Eric Stevenson MD, R3) Objective Vitals Vital Signs Date Time Temp Pulse Resp B/P (MAP) Pulse Ox O2 Delivery O2 Flow Rate FiO2 05/03/17 07:00 97.5 70 18 161/76 (104) 96 05/03/17 06:00 71 05/03/17 05:00 88 05/03/17 04:00 93 05/03/17 03:00 95 05/03/17 03:00 98.7 69 16 147/74 (98) 95 05/03/17 02:00 68 05/03/17 01:00 71 05/03/17 00:00 68 05/02/17 23:00 68 05/02/17 23:00 98.6 68 16 165/75 (105) 96 05/02/17 22:00 74 05/02/17 21:00 78 05/02/17 20:00 78 05/02/17 20:00 98.5 79 16 158/80 (106) 96 05/02/17 19:40 97 05/02/17 19:00 82 05/02/17 18:00 80 05/02/17 17:00 75 05/02/17 16:00 80 05/02/17 15:57 98.2 77 18 152/71 (98) 96 05/02/17 15:00 82 05/02/17 14:35 77 05/02/17 13:00 83 I/O 05/02/17 05/02/17 05/02/17 05/03/17 05/03/17 05/03/17 07:00 15:00 23:00 07:00 15:00 23:00 Intake Total 240 ml 360 ml 360 ml Output Total 1875 ml 400 ml 1000 ml Balance -1635 ml -40 ml -640 ml Intake Oral 240 ml 360 ml 360 ml Output Urine Total 1875 ml 400 ml 1000 ml # Bowel Movements 0 0 (Eric Stevenson MD, R3) Result Diagram: 05/03/17 0600 05/03/17 0600 Imaging Last Impressions Carotid Artery Ultrasound 05/02/17 0000 Signed Impressions: Service Date/Time: Tuesday, May 02, 2017 12:26 - CONCLUSION: 1. Moderate calcified plaque in the left carotid bulb and proximal internal carotid artery with estimated 50-69%% stenosis based on velocity measurements. 2. The right carotid system is not evaluated since it was obscured by a central line. Keegan Santos MD Abdomen/Pelvis CT 04/29/17 0000 Signed Impressions: Service Date/Time: Saturday, April 29, 2017 10:38 - CONCLUSION: 1. Stable large right groin hematoma. 2. Vicarious excretion of contrast by the gallbladder and persistent contrast opacification of the kidneys characteristic of renal insufficiency. 3. Colonic diverticulosis without evidence of active inflammatory changes. 4. No evidence of acute process in the abdomen or pelvis. Reuben Carr MD Catheter Placement X-Ray 04/28/17 0000 Signed Impressions: Service Date/Time: Friday, April 28, 2017 16:14 - CONCLUSION: Uncomplicated venous catheter change as above. Stoney Morrow MD Lower Extremity Ultrasound 04/26/17 0000 Signed Impressions: Service Date/Time: Wednesday, April 26, 2017 14:24 - CONCLUSION: Large groin hematoma. No evidence of pseudoaneurysm Keegan Cedeno MD Chest X-Ray 04/22/17 0600 Signed Impressions: Service Date/Time: Saturday, April 22, 2017 02:19 - CONCLUSION: No acute cardiopulmonary disease identified. Trevor Townsend MD Renal Ultrasound 04/21/17 0000 Signed Impressions: Service Date/Time: Friday, April 21, 2017 17:11 - CONCLUSION: Stone in the lateral left kidney. No evidence of hydronephrosis or solid mass. No evidence of obstruction. Kirill Linder MD Objective Remarks General: Resting in bed in no acute distress; receiving dialysis Skin: Warm and dry. R ABD: Large hematoma from the right lower quadrant HEENT: EOM grossly I. CV: Regular rate and rhythm without murmurs. Normal peripheral perfusion. No significant LE edema Lungs: Normal rate. decreased air movement without wheezing to auscultation Abdomen: Soft, nontender, non-distended with normal bowel sounds. MSK: Not assessed at this exam- previously right third toe amputated, no swelling or tenderness Neuro: Awake, alert. Grossly normal CN. No peripheral motor/sensory defects appreciated Procedures Vascath 04/22/17 Initiate hemodialysis 04/22/17 Catheterization and stent placement on 04/28/17 (Eric Stevenson MD, R3) A/P Assessment and Plan 61 yo female with NSTEMI, acute COPD exacerbation, acute renal failure with chronic renal disease requiring hemodialysis. Cardiology and nephrology on board ; receiving dialysis. Cath 04/24 with multivessel CAD; undergoing 2 step catheterization with stenting. Discharge Planning Pending clinical course. Patient currently scheduled for cardiac catheterization with stenting in order to decrease contrast load as she is in acute renal failure. Patient to receive dialysis per nephrology schedule. (Eric Stevenson MD, R3) Attending Attestation EMR reviewed Patients hospital course discussed in detail with Dr Stevenson Patient seen and examined Agree with contents of this note See Orders Patient encouraged by renal results (Juan Luis Flowers MD) Problem List: (1) NSTEMI (non-ST elevated myocardial infarction) ICD Codes: I21.4 - Non-ST elevation (NSTEMI) myocardial infarction Status: Acute Plan: Impression: Troponin elevated at admission along with atypical chest pain. Non-specific ST-T wave changes on initial EKG's. Patient initially placed on Heparin. 04/24/2017- Patient s/p Catheterization per Dr. Cole which demonstrated NSTEMI, multivessel coronary disease, new cardiomyopathy with EF 45-50% Heparin drip discontinued due to hematoma and anemia - Cardiology consulted -CV surgery initially consulted but decision made for stenting rather than CABG for multivessel disease due to renal failure and concern for poor surgical outcome -S/P cath/stenting 04/28 (L circumflex, obtuse marginal) -Plan for stenting tomorrow, 05/04 - Continue DAPT with aspirin and Brillinta -Continue Lipitor 10 mg qHS, Coreg 3.125 mg bid -Hold RISSA/ARB (2) Acute on chronic kidney failure ICD Codes: N17.9 - Acute kidney failure, unspecified; N18.9 - Chronic kidney disease, unspecified Status: Acute Plan: 05/03: Cr 4.84 <- 4.16; 1400ml urine output overnight. Patient currently receiving dialysis Nephrology consulted -PRN Dialysis -last dialysis 05/01 with 3500ml removal -Monitor electrolytes -Continue Bumex -Continue to monitor urine output, electrolytes - Avoid nephrotoxic agents, contrast agents Impression: Has a history of diabetes with diabetic nephropathy. Has proteinuria and oliguria with acute decrease in renal function. Her baseline creatinine is about 2.8, now with doubling of creatinine. Also with hyperkalemia and metabolic acidosis. Etiology includes chronic kidney disease with acute exacerbation possibly from poor cardiac output with NSTEMI. Renal ultrasound showing no obstruction, has stone that is non-obstructing Complement negative MIGUE negative, SPEP, urine immunofixation normal Hepatitis profile negative (3) Anemia ICD Codes: D64.9 - Anemia, unspecified Status: Acute Plan: 05/03: Hgb 8<- 8.4 (01/30) <- Hgb 10.1 (05/01) -Continue to monitor H/H and transfuse as necessary: -s/p 4 U pRBC 04/26 and 04/29 -2 additional U pRBC ordered since Hgb <9; will defer timing of transfusion to Cardiology/Nephrology based on Cath plans -Heparin as needed for procedures -GI consulted -VANGIE, PPI, monitor HH and supportive care -Vascular surgery consulted -No surgical intervention needed at this time; follow RLE pulse checks and serial Hcts -Cleared from a vascular standpoint 04/27 Impression: Anemia in association with recent catheterization, R groin hematoma , positive hemmocult on recent heparin treatment 04/26- CT abdomen and pelvis 04/26: Right inguinal and right lower quadrant abdominal wall hematoma measuring 8.8 cm. Subcutaneous inflammatory changes which extend into the mons pubis region. Bilateral flank edema. Nonacute findings include small left pleural effusion, severe atherosclerotic disease, and sigmoid diverticulosis. No pseudoaneurysm. 04/26: LE US- large groin hematoma; no evidence of pseudoaneurysm 04/29- Repeat CT abdomen and pelvis on 04/29: Unchanged from previous CT abdomen (4) COPD (chronic obstructive pulmonary disease) ICD Codes: J44.9 - Chronic obstructive pulmonary disease, unspecified Status: Chronic Plan: History of COPD with recent upper respiratory symptoms and acute exacerbation, recently diagnosed with pneumonia while on cruise ship and was started on azithromycin. - IV Solumedrol 60 mg q12hrs started 04/21 - DuoNebs q6hrs scheduled - Levaquin empirically, renally dosed, started 11/4 Q48H - O2 supplementation with target O2 90% (5) Hyperkalemia ICD Codes: E87.5 - Hyperkalemia; N18.9 - Chronic kidney disease, unspecified Status: Resolved Plan: Hyperkalemia up to 6.0 with acute renal failure. Resolved with hemodialysis. - Continue management per nephrology (6) Hyponatremia ICD Codes: E87.1 - Hypo-osmolality and hyponatremia Status: Resolved Plan: Hyponatremia with acute renal failure, asymptomatic, resolved at this time. - IV fluids per nephrology - Monitor electrolytes - Hemodialysis per nephrology (7) DM2 (diabetes mellitus, type 2) ICD Codes: E11.9 - Type 2 diabetes mellitus without complications Status: Chronic Plan: History of diabetes type II - Sliding scale insulin with glucose goal of 140-180 (8) HTN (hypertension) ICD Codes: I10 - HTN (hypertension) Status: Chronic Plan: Impression: Mild hypertension during hospitalization with SBP 140s-160 - Continue carvedilol 3.125 bid -Will plan for dosage increase if persistent (9) Hypothyroidism ICD Codes: E03.9 - Hypothyroidism, unspecified Status: Chronic Plan: TSH normal - Levothyroxine 50 mcg daily (10) Constipation ICD Codes: K59.00 - Constipation, unspecified Plan: Impression: Patient reports feelings of constipation; last BM 2 days prior. -Discussed with patient recommendation for Bisacodyl suppository if desired this evening; patient also has PRN oral bowel motility agents available (11) Secondary hyperparathyroidism (of renal origin) ICD Codes: N25.81 - Secondary hyperparathyroidism of renal origin Status: Acute Plan: Patient with secondary hyperparathyroidism with significantly elevated phosphate and low calcium. Intact PTH 364.5 1,25 OH Vit D 11 -Will plan to initiate supplementation - Dietary phosphate restriction to 900 mg/day -Consider PhosLo -Management per Nephrology (12) DVT Prophylaxis Status: Acute Plan: Heparin drip discontinued due to anemia/ suspected active bleeding (13) Nutrition, metabolism, and development symptoms ICD Codes: R63.8 - Other symptoms and signs concerning food and fluid intake Status: Acute Plan: Heart healthy diet IV fluids per nephrology Phosphate restriction 900 mg/day for hyperphosphatemia Hyponatremia, hyperkalemia initially Receiving dialysis per nephrology Acute renal failure with CKD, monitor renal function Protonix IV 40 mg daily (Eric Stevenson MD, R3) Problem Qualifiers (1) Acute on chronic kidney failure: Qualified Codes: N17.9 - Acute kidney failure, unspecified; N18.9 - Chronic kidney disease, unspecified (2) Anemia: Qualified Codes: D64.9 - Anemia, unspecified (3) COPD (chronic obstructive pulmonary disease): (4) DM2 (diabetes mellitus, type 2): Qualified Codes: E11.8 - Type 2 diabetes mellitus with unspecified complications (5) HTN (hypertension): Qualified Codes: I10 - Essential (primary) hypertension (6) Hypothyroidism: Qualified Codes: E03.9 - Hypothyroidism, unspecified (7) Constipation: Qualified Codes: K59.00 - Constipation, unspecified Eric Stevenson MD, R3 May 03, 2017 12:23 Juan Luis Flowers MD May 05, 2017 14:01
[2017-05-03] MEDS: methylPREDNISolone SOD SUCC 40 MG/1 ML VIAL IV PUSH SCH ×2 (14:10→20:40)
[2017-05-03] MEDS: LEVOFLOXACIN 500 MG PREMIX INJ 100 ML IV SCH (14:10)
[2017-05-03] MEDS: SODIUM CHLORIDE 0.9% FLUSH 10 ML FLUSH IV FLUSH SCH ×2 (14:11→20:41)
[2017-05-03] MEDS: DOCUSATE SODIUM 50 MG/SENNA 8.6 MG TAB PO SCH ×2 (14:11→20:40)
[2017-05-03 15:11] LABS: HEMATOCRIT 23.2 % (35.0-46.0); MEAN CELL VOLUME 92.8 FL (80.0-100.0); MEAN CORPUSCULAR HEMOGLOBIN 31.3 PG (27.0-34.0); MEAN CORPUSCULAR HGB CONC 33.8 % (32.0-36.0); PLATELET COUNT 132 TH/MM3 (150-450); RED CELL DISTRIBUTION WIDTH 15.3 % (11.6-17.2); REVIEW FLAG FINAL; WHITE BLOOD COUNT 22.9 TH/MM3 (4.0-11.0)
--- NOTE | 2017-05-03 16:22 | HHI.GIFU ---
Subjective Remarks Resting in bed. Had HD earlier today. Plan is for cardiac cath today. No nv. NPO for procedure. No GI bleeding. (Carole Cruz) Objective Vitals I&O Vital Signs Date Time Temp Pulse Resp B/P (MAP) Pulse Ox O2 Delivery O2 Flow Rate FiO2 05/03/17 07:00 97.5 70 18 161/76 (104) 96 05/03/17 06:00 71 05/03/17 05:00 88 05/03/17 04:00 93 05/03/17 03:00 95 05/03/17 03:00 98.7 69 16 147/74 (98) 95 05/03/17 02:00 68 05/03/17 01:00 71 05/03/17 00:00 68 05/02/17 23:00 68 05/02/17 23:00 98.6 68 16 165/75 (105) 96 05/02/17 22:00 74 05/02/17 21:00 78 05/02/17 20:00 78 05/02/17 20:00 98.5 79 16 158/80 (106) 96 05/02/17 19:40 97 05/02/17 19:00 82 05/02/17 18:00 80 05/02/17 17:00 75 I/O 05/02/17 05/02/17 05/02/17 05/03/17 05/03/17 05/03/17 07:00 15:00 23:00 07:00 15:00 23:00 Intake Total 240 ml 360 ml 360 ml Output Total 1875 ml 400 ml 1000 ml 3500 ml Balance -1635 ml -40 ml -640 ml -3500 ml Intake Oral 240 ml 360 ml 360 ml Output Urine Total 1875 ml 400 ml 1000 ml Hemodialysis 3500 ml # Bowel Movements 0 0 Laboratory Laboratory Tests Test 05/02/17 21:48 05/03/17 06:00 05/03/17 14:06 Hemoglobin 8.1 8.0 7.8 Hematocrit 24.2 24.5 23.2 White Blood Count 19.9 22.9 Red Blood Count 2.67 2.50 Mean Corpuscular Volume 91.9 92.8 Mean Corpuscular Hemoglobin 30.1 31.3 Mean Corpuscular Hemoglobin Concent 32.8 33.8 Red Cell Distribution Width 15.3 15.3 Platelet Count 130 132 Mean Platelet Volume 9.2 9.1 Neutrophils (%) (Auto) 93.5 Lymphocytes (%) (Auto) 1.3 Monocytes (%) (Auto) 4.8 Eosinophils (%) (Auto) 0.0 Basophils (%) (Auto) 0.4 Neutrophils # (Auto) 18.6 Lymphocytes # (Auto) 0.3 Monocytes # (Auto) 1.0 Eosinophils # (Auto) 0.0 Basophils # (Auto) 0.1 CBC Comment DIFF FINAL Differential Comment Activated Partial Thromboplast Time 23.1 Blood Urea Nitrogen 119 Creatinine 4.84 Random Glucose 179 Albumin 2.9 Calcium Level 8.0 Phosphorus Level 5.0 Sodium Level 135 Potassium Level 4.2 Chloride Level 94 Carbon Dioxide Level 30.3 Anion Gap 11 Estimat Glomerular Filtration Rate 9 Date/Time Source Procedure Growth Status 04/29/17 09:30 Stool Stool Stool Occult Blood (CHUCK) - Final HEMOCCULT POSITIVE Complete 04/21/17 04:40 Nasal Aspirate Influenza Types A,B Antigen (CHUCK) - Final NEGATIVE FOR FLU A AND B ANTIGEN.... Complete 04/21/17 08:20 Urine Catheterized Urine Urine Culture - Final NO GROWTH IN 48 HOURS. Complete Imaging Last Impressions Carotid Artery Ultrasound 05/02/17 0000 Signed Impressions: Service Date/Time: Tuesday, May 02, 2017 12:26 - CONCLUSION: 1. Moderate calcified plaque in the left carotid bulb and proximal internal carotid artery with estimated 50-69%% stenosis based on velocity measurements. 2. The right carotid system is not evaluated since it was obscured by a central line. Keegan Santos MD Abdomen/Pelvis CT 04/29/17 0000 Signed Impressions: Service Date/Time: Saturday, April 29, 2017 10:38 - CONCLUSION: 1. Stable large right groin hematoma. 2. Vicarious excretion of contrast by the gallbladder and persistent contrast opacification of the kidneys characteristic of renal insufficiency. 3. Colonic diverticulosis without evidence of active inflammatory changes. 4. No evidence of acute process in the abdomen or pelvis. Reuben Carr MD Catheter Placement X-Ray 04/28/17 0000 Signed Impressions: Service Date/Time: Friday, April 28, 2017 16:14 - CONCLUSION: Uncomplicated venous catheter change as above. Stoney Morrow MD Lower Extremity Ultrasound 04/26/17 0000 Signed Impressions: Service Date/Time: Wednesday, April 26, 2017 14:24 - CONCLUSION: Large groin hematoma. No evidence of pseudoaneurysm Keegan Cedeno MD Chest X-Ray 04/22/17 0600 Signed Impressions: Service Date/Time: Saturday, April 22, 2017 02:19 - CONCLUSION: No acute cardiopulmonary disease identified. Trevor Townsend MD Renal Ultrasound 04/21/17 0000 Signed Impressions: Service Date/Time: Friday, April 21, 2017 17:11 - CONCLUSION: Stone in the lateral left kidney. No evidence of hydronephrosis or solid mass. No evidence of obstruction. Kirill Linder MD Physical Exam HEENT: Normocephalic; atraumatic; no jaundice. CHEST: diminshed CARDIAC: RRR ABDOMEN: Soft, nondistended, RLQ/flank area tenderness; no hepatosplenomegaly; bowel sounds are present in all four quadrants. EXTREMITIES: No clubbing, cyanosis, +1 pitting BLE edema. SKIN: Ecchymosis rlq/groin/flank CREDIT ADMINISTRATION OFFICER: No focal deficits; alert and oriented times three. (Carole Cruz SOLID SURFACE FABRICATOR) Assessment and Plan Plan ASSESSMENT: - Anemia with drop in Hgb. Pt had significant drop in Hgb after the cardiac cath. CT Scan at that time noted right inguinal and right lower quadrant abdominal wall hematoma measuring up to 8.8cm with surrounding subcutaneous inflammatory changes which extend into the mons pubis region. She was given 2 units of PRBC and responded appropriately, but then dropped again on 04/29 to 6.3/19.1. She was given an additional 2 units of PRBC and her H/H is now 10.1/29.3. Of note, she was found to have extensive ecchymosis to her right flank/right lower abdomen/groin. CT scan abdomen and pelvis (04/29/17)---> Stable large right groin hematoma , vicarious excretion of contrast by the gallbladder and persistent contrast opacification of the kidneys characteristic of renal insufficiency, colonic diverticulosis without evidence of active inflammatory changes, no evidence of acute process in the abdomen or pelvis. Stool hemoccult (+). GI was consulted for further evaluation. EGD/Colonoscopy (04/21/15)--> gastritis antrum, normal duodenum, retroflexed views revealed a hiatal hernia, diverticulosis sigmoid, descending semisolid stool throughout the colon, no gross lesions seen, retroflexed views revealed medium internal hemorrhoids, external hemorrhoids , decreased sphincter tone. Pathology duodenal mucosa without significant histopathologic abnormality, mild chronic gastritis, negative for H. Pylori. It was recommended that she have a repeat colonoscopy in 3 months with consideration for a capsule endoscopy. S/P EGD (05/01/17)---> gastritis, large amount of food residue consistent with gastroparesis, but no evidence of any active GI bleed from the stomach or the esophagus. Reglan, PPI. HH stable 7.8/23.2. - Hemoccult (+). EGD as above. No obvious active GI bleeding. - Hematoma. Had drop in Hgb after cardiac cath, CT revelaed right inguinal and right lower quadrant abdominal wall hematoma measuring up to 8.8cm with surrounding subcutaneous inflammatory changes which extend into the mons pubis region. Rpt. CT Scan with stable large right groin hematoma. Monitor HH - NSTEMI/CAD. S/P left heart catheterization (04/24/17)----> multivessel coronary artery disease, new cardiomyopathy with EF of 45-50%. Cardiac thoracic surgery was consulted for evaluation for CABG and she was restarted on heparin, ASA/BB/statin. Heparin now on hold because of hematoma. Plan is for repeat cath today. - Acute on chronic kidney disease with electrolyte abnormalities. S/P vascath, HD. - COPD, HTN, DM, Hypothyroidism, Secondary hyperparathyroidism, per attending. PLAN: - VANGIE - Cont PPI - Cont Reglan - Monitor HH - Transfuse as necessary - Okay for cardiac evaluation - Okay to continue with anticoagulation from [facility] - EGD in 1-2 months - Further evaluation from a GI perspective to be done as outpatient after she is more stable from a cardiac standpoint - GI will sign off, please reconsult as needed - Pt seen and examined by Dr. East and myself and this note is written on his behalf (Carole Cruz) Physician Comments Patient seen and examined Agree with above Continue with current supportive care Monitor labs We will sign off (Moi East MD) Carole Cruz May 03, 2017 16:22 Moi East MD May 03, 2017 18:35
--- NOTE | 2017-05-03 20:28 | PD.CARD.PN ---
Subjective Subjective Remarks Patient was seen this morning and later this afternoon, late entry Plan for cardiac catheterization today but unable to due to multiple emergent cases No chest pain, no SOB Objective Medications Current Medications Medications (Trade) Dose Ordered Sig/Des Route Start Time Stop Time Status Last Admin (Duoneb Neb) 1 ampule Q4HR NEB PRN INH 04/21/17 06:45 Miscellaneous Information 1 Q361D XX 04/21/17 06:45 (Chlorhexidine 2% Cloth) Taper DAILY@04 TOP 04/22/17 04:00 04/18/18 03:59 04/27/17 00:35 (Chlorhexidine 2% Cloth) 3 pack UNSCH PRN TOP 04/21/17 06:45 (Malaika-Colace) 1 tab BID PO 04/21/17 09:00 05/03/17 14:11 (Milk Of Magnesia Liq) 30 ml Q12H PRN PO 04/21/17 06:45 (Senokot) 17.2 mg Q12H PRN PO 04/21/17 06:45 05/02/17 12:22 (Dulcolax Supp) 10 mg DAILY PRN RECTAL 04/21/17 06:45 05/03/17 14:10 (Lactulose Liq) 30 ml DAILY PRN PO 04/21/17 06:45 05/03/17 17:30 (Aspirin Chew) 81 mg DAILY CHEW 04/22/17 09:00 05/03/17 08:10 (Coreg) 3.125 mg Q12HR PO 04/21/17 09:00 05/03/17 08:10 (Lipitor) 10 mg HS PO 04/21/17 21:00 05/02/17 21:12 (Vitamin B12) 500 mcg DAILY PO 04/21/17 09:00 05/02/17 08:32 (Synthroid) 50 mcg DAILY@0600 PO 04/21/17 07:00 05/03/17 06:06 Levofloxacin/ Dextrose 100 ml @ 100 mls/hr Q48H IV 04/21/17 12:00 05/03/17 14:10 (Restoril) 15 mg HS PRN PO 04/21/17 20:45 05/02/17 23:16 Sodium Chloride 1,000 ml @ 0 mls/hr Q0M PRN OTHER 04/22/17 14:04 (Heparin Inj) 8,000 units UNSCH PRN IV FLUSH 04/22/17 14:15 05/03/17 11:17 Sodium Chloride 1,000 ml @ 200 mls/hr Q5H PRN IV 04/22/17 14:04 Sodium Chloride 1,000 ml @ 0 mls/hr Q0M PRN OTHER 04/22/17 14:04 (Mannitol Inj) 12.5 gm UNSCH PRN IV 04/22/17 14:15 Albumin Human 100 ml @ 60 mls/hr UNSCH PRN IV 04/22/17 14:15 05/03/17 11:17 (NS Flush) 5 ml UNSCH PRN IV FLUSH 04/22/17 14:15 (Heparin Inj) UNSCH PRN .XX 04/22/17 14:15 05/03/17 11:17 (Gentamicin (Dialysis) Inj) 20 mg UNSCH PRN OTHER 04/22/17 14:15 05/03/17 11:17 (Zofran Inj) 4 mg UNSCH PRN IV PUSH 04/22/17 14:15 (Tylenol) 650 mg UNSCH PRN PO 04/22/17 14:15 04/25/17 12:21 (Benadryl) 25 mg UNSCH PRN PO 04/22/17 14:15 (Nitrostat Sl) 0.4 mg UNSCH PRN SL 04/22/17 14:15 (Catapres) 0.1 mg UNSCH PRN PO 04/22/17 14:15 04/27/17 22:31 (Gelfoam 12 Mm/7 Mm Top) 1 foam UNSCH PRN TOP 04/22/17 14:15 (Apresoline Inj) 10 mg Q30M PRN IV PUSH 04/23/17 13:15 05/01/17 10:58 (Phoslo) 2,001 mg TID PO 04/23/17 18:00 05/03/17 17:23 (Rocaltrol) 0.25 mcg DAILY PO 04/24/17 09:15 05/02/17 08:32 (Atropine Inj) 0.5 mg UNSCH PRN IV PUSH 04/24/17 10:00 (NS Flush) 2 ml BID IV FLUSH 04/24/17 21:00 05/03/17 14:11 (NS Flush) 2 ml UNSCH PRN IV FLUSH 04/24/17 15:45 (D50w (Vial) Inj) 50 ml UNSCH PRN IV PUSH 04/24/17 15:45 (Morphine Inj) 2 mg Q3H PRN IV PUSH 04/26/17 09:30 04/29/17 13:33 (Bumex Inj) 2 mg BID@09,18 IV PUSH 04/26/17 20:45 05/03/17 17:24 (Brilinta) 90 mg BID PO 04/29/17 09:00 05/03/17 08:10 (Percocet 5-325 Mg) 1 tab Q4H PRN PO 04/29/17 13:30 05/02/17 21:14 (Percocet 10-325 Mg) 1 tab Q4H PRN PO 04/29/17 13:30 05/02/17 08:55 (NovoLOG SUPPLEMENTAL SCALE) 1 ACHS SQ 04/30/17 21:00 05/02/17 21:12 (Levemir Inj) 5 units Q12HR SQ 04/30/17 21:00 05/03/17 08:10 (Glucagon Inj) 1 mg UNSCH PRN OTHER 04/30/17 18:15 (Protonix) 40 mg DAILY PO 05/01/17 12:30 05/02/17 08:32 (Reglan) 5 mg BIDAC PO 05/01/17 12:15 05/03/17 17:26 (SoluMEDROL INJ) 40 mg Q12HR IV PUSH 05/02/17 21:00 05/03/17 14:10 Sodium Chloride 250 ml @ 15 mls/hr ONCE ONCE IV 05/04/17 08:00 05/05/17 00:39 Vital Signs / I&O Vital Signs Date Time Temp Pulse Resp B/P (MAP) Pulse Ox O2 Delivery O2 Flow Rate FiO2 05/03/17 18:00 84 05/03/17 17:00 78 05/03/17 16:00 82 05/03/17 15:00 97.1 76 16 169/72 (104) 98 05/03/17 15:00 80 05/03/17 14:00 82 05/03/17 12:30 77 16 152/72 (98) 97 05/03/17 08:00 74 05/03/17 07:00 97.5 70 18 161/76 (104) 96 05/03/17 07:00 76 05/03/17 06:00 71 05/03/17 05:00 88 05/03/17 04:00 93 05/03/17 03:00 95 05/03/17 03:00 98.7 69 16 147/74 (98) 95 05/03/17 02:00 68 05/03/17 01:00 71 05/03/17 00:00 68 05/02/17 23:00 68 05/02/17 23:00 98.6 68 16 165/75 (105) 96 05/02/17 22:00 74 05/02/17 21:00 78 I/O 05/02/17 05/02/17 05/02/17 05/03/17 05/03/17 05/03/17 07:00 15:00 23:00 07:00 15:00 23:00 Intake Total 240 ml 360 ml 360 ml 120 ml Output Total 1875 ml 400 ml 1000 ml 3500 ml 400 ml Balance -1635 ml -40 ml -640 ml -3500 ml -280 ml Intake Oral 240 ml 360 ml 360 ml 120 ml Output Urine Total 1875 ml 400 ml 1000 ml 400 ml Hemodialysis 3500 ml # Bowel Movements 0 0 Physical Exam GENERAL: NAD, AAOx3 SKIN: Warm and dry. HEAD: Atraumatic. Normocephalic. EYES: Pupils equal and round. No scleral icterus. No injection or drainage. ENT: No nasal bleeding or discharge. Mucous membranes pink and moist. NECK: Trachea midline. No JVD. CARDIOVASCULAR: Regular rate and rhythm. RESPIRATORY: No accessory muscle use. Clear to auscultation. Breath sounds equal bilaterally. GASTROINTESTINAL: Abdomen soft, non-tender, nondistended. Hepatic and splenic margins not palpable. MUSCULOSKELETAL: Extremities without clubbing, cyanosis, or edema. No obvious deformities. Right abdominal wall with large ecchymosis layering out, left femoral no hematoma/bruit NEUROLOGICAL: Awake and alert. No obvious cranial nerve deficits. Motor grossly within normal limits. Five out of 5 muscle strength in the arms and legs. Normal speech. PSYCHIATRIC: Appropriate mood and affect; insight and judgment normal. Laboratory Laboratory Tests Test 05/02/17 21:48 05/03/17 06:00 05/03/17 14:06 Hemoglobin 8.1 GM/DL 8.0 GM/DL 7.8 GM/DL Hematocrit 24.2 % 24.5 % 23.2 % White Blood Count 19.9 TH/MM3 22.9 TH/MM3 Red Blood Count 2.67 MIL/MM3 2.50 MIL/MM3 Mean Corpuscular Volume 91.9 FL 92.8 FL Mean Corpuscular Hemoglobin 30.1 PG 31.3 PG Mean Corpuscular Hemoglobin Concent 32.8 % 33.8 % Red Cell Distribution Width 15.3 % 15.3 % Platelet Count 130 TH/MM3 132 TH/MM3 Mean Platelet Volume 9.2 FL 9.1 FL Neutrophils (%) (Auto) 93.5 % Lymphocytes (%) (Auto) 1.3 % Monocytes (%) (Auto) 4.8 % Eosinophils (%) (Auto) 0.0 % Basophils (%) (Auto) 0.4 % Neutrophils # (Auto) 18.6 TH/MM3 Lymphocytes # (Auto) 0.3 TH/MM3 Monocytes # (Auto) 1.0 TH/MM3 Eosinophils # (Auto) 0.0 TH/MM3 Basophils # (Auto) 0.1 TH/MM3 CBC Comment DIFF FINAL Differential Comment Activated Partial Thromboplast Time 23.1 SEC Blood Urea Nitrogen 119 MG/DL Creatinine 4.84 MG/DL Random Glucose 179 MG/DL Albumin 2.9 GM/DL Calcium Level 8.0 MG/DL Phosphorus Level 5.0 MG/DL Sodium Level 135 MEQ/L Potassium Level 4.2 MEQ/L Chloride Level 94 MEQ/L Carbon Dioxide Level 30.3 MEQ/L Anion Gap 11 MEQ/L Estimat Glomerular Filtration Rate 9 ML/MIN Assessment and Plan Problem List: (1) NSTEMI (non-ST elevated myocardial infarction) ICD Codes: I21.4 - Non-ST elevation (NSTEMI) myocardial infarction Status: Acute (2) Acute on chronic kidney failure ICD Codes: N17.9 - Acute kidney failure, unspecified; N18.9 - Chronic kidney disease, unspecified Status: Acute (3) HTN (hypertension) ICD Codes: I10 - HTN (hypertension) Status: Chronic (4) HLD (hyperlipidemia) ICD Codes: E78.5 - HLD (hyperlipidemia) Status: Chronic (5) Anemia ICD Codes: D64.9 - Anemia, unspecified Status: Acute Assessment and Plan 1) NSTEMI/CAD Multivessel CAD ASA/BB/Statin/Brilinta Turned down for CABG s/p PCI of LCX with DESx2 (mid 2.5x22, distal 2.25x15 overlapped), PCI OM1 with ROMAN (2.25x18) Will plan for PCI of LAD tomorrow if Hgb stable Concern for drop in Hgb, noted to continually drop, will check in the morning before deciding on catheterization May need to cancel and treat LAD medically 2) LEEANN on CKD HD started Still making urine with increased output Attempt to decrease nephrotoxin medications (contrast) if possible, not sure if chronic yet 3) Anemia Post-procedure Now with right groin hematoma No PSA or RPB Most likely layering now, will continue to follow Significant drop in Hgb after heparin during PCI, Heme positive stools Discussed with GI, no significant GI bleed Problem Qualifiers (1) Acute on chronic kidney failure: Qualified Codes: N17.9 - Acute kidney failure, unspecified; N18.9 - Chronic kidney disease, unspecified (2) HTN (hypertension): Qualified Codes: I10 - Essential (primary) hypertension (3) HLD (hyperlipidemia): Qualified Codes: E78.5 - Hyperlipidemia, unspecified (4) Anemia: Qualified Codes: D64.9 - Anemia, unspecified Hemanth Cole DO May 03, 2017 20:28
[2017-05-03] MEDS: oxyCODONE/ACETAMINOPHEN 10 MG/325 MG TAB PO PRN (20:40)
[2017-05-03] MEDS: ATORVASTATIN 10 MG TAB PO SCH (20:40)
[2017-05-03] MEDS: TEMAZEPAM 15 MG CAP PO PRN (23:10)
[2017-05-04] VITALS (22 sets, daily range): BP systolic 121–198; BP diastolic 63–84; PULSE 72–92; RESP 14–18; TEMP 97.1–98.4; O2SAT 96–99
[2017-05-04] MEDS: CHLORHEXIDINE GLUCONATE 2 % 1 PACK (2 CLOTHS) TOP SCH ×2 (04:00→20:53)
[2017-05-04] MEDS: oxyCODONE/ACETAMINOPHEN 10 MG/325 MG TAB PO PRN ×2 (04:06→09:12)
[2017-05-04] MEDS: LEVOTHYROXINE SODIUM 50 MCG TAB PO SCH (06:51)
[2017-05-04] MEDS: METOCLOPRAMIDE HCL 10 MG TAB PO SCH ×2 (06:51→15:50)
[2017-05-04 07:03] LABS: AUTOMATED NEUTROPHIL # 14.6 TH/MM3 (1.8-7.7); BASOPHIL % 0.1 % (0.0-2.0); LYMPH % 1.5 % (9.0-44.0); LYMPHOCYTE # 0.2 TH/MM3 (1.0-4.8); MEAN CELL VOLUME 92.8 FL (80.0-100.0); MEAN CORPUSCULAR HGB CONC 33.4 % (32.0-36.0); MONO % 4.6 % (0.0-8.0); NEUT % 93.8 % (16.0-70.0); PLATELET COUNT 117 TH/MM3 (150-450); RED BLOOD COUNT 2.22 MIL/MM3 (4.00-5.30); RED CELL DISTRIBUTION WIDTH 15.3 % (11.6-17.2); WHITE BLOOD COUNT 15.6 TH/MM3 (4.0-11.0)
[2017-05-04 07:08] LABS: HEMO FLAGS DIFF FINAL
[2017-05-04 07:10] LABS: APTT (PATIENT) 24.1 SEC (24.3-30.1)
[2017-05-04 07:11] LABS: HEMATOCRIT 20.6 % (35.0-46.0)
[2017-05-04 07:39] LABS: ANION GAP 9 MEQ/L (5-15); BICARBONATE 29.7 MEQ/L (21.0-32.0); BLOOD UREA NITROGEN 79 MG/DL (7-18); CHLORIDE 97 MEQ/L (98-107); GLOMERULAR FILTRATION RATE 13 ML/MIN (>89); POTASSIUM 4.4 MEQ/L (3.5-5.1); SODIUM (NA) 136 MEQ/L (136-145); TRANSFERRIN IRON PROFILE 129 MG/DL (200-360)
[2017-05-04] MEDS ORDERED: SODIUM CHLOR 0.9% 250 ML INJ 250 ML IV ONE (08:00)
[2017-05-04] MEDS: INSULIN ASPART SUPPLEMENTAL SCALE SQ SCH ×4 (09:12→20:52)
[2017-05-04] MEDS: SODIUM CHLORIDE 0.9% FLUSH 10 ML FLUSH IV FLUSH SCH ×2 (09:13→20:51)
[2017-05-04] MEDS: methylPREDNISolone SOD SUCC 40 MG/1 ML VIAL IV PUSH SCH ×2 (09:13→20:52)
[2017-05-04] MEDS: ASPIRIN 81 MG CHEW TAB CHEW SCH (09:13)
[2017-05-04] MEDS: BUMETANIDE INJ 1 MG/4 ML VIAL IV PUSH SCH ×2 (09:13→17:17)
[2017-05-04] MEDS: TICAGRELOR 90 MG TAB PO SCH ×2 (09:14→20:52)
[2017-05-04] MEDS: CARVEDILOL 3.125 MG TAB PO SCH (09:14)
[2017-05-04] MEDS: CALCITRIOL 0.25 MCG CAP PO SCH (09:15)
[2017-05-04] MEDS: PANTOPRAZOLE SOD 40 MG DELAYED RELEASE TAB PO SCH (09:15)
[2017-05-04] MEDS: CALCIUM ACETATE 667 MG CAP PO SCH ×3 (09:15→17:17)
[2017-05-04] MEDS: DOCUSATE SODIUM 50 MG/SENNA 8.6 MG TAB PO SCH ×2 (09:15→20:52)
[2017-05-04] MEDS: CYANOCOBALAMIN 1,000 MCG TAB PO SCH (09:16)
[2017-05-04] MEDS: INSULIN DETEMIR 100 UNITS/ML VIAL SQ SCH ×2 (09:16→20:52)
--- NOTE | 2017-05-04 10:57 | HHI.FPPN ---
Subjective Remarks Mrs. Alicia was afebrile with stable vital signs overnight; patient does not report chest pain or shortness of breath. Patient also reports improvement in abdominal pain. Patient reports some continued urination. (Eric Stevenson MD, R3) Objective Vitals Vital Signs Date Time Temp Pulse Resp B/P (MAP) Pulse Ox O2 Delivery O2 Flow Rate FiO2 05/04/17 10:00 72 05/04/17 09:33 97.8 75 16 147/63 97 05/04/17 09:00 74 05/04/17 08:00 76 05/04/17 07:00 80 05/04/17 07:00 98.4 78 16 144/66 (92) 97 05/04/17 03:30 97.1 75 16 131/67 (88) 98 05/04/17 03:00 76 05/03/17 23:30 97.1 79 16 143/71 (95) 98 05/03/17 23:00 77 05/03/17 19:30 97.1 80 16 124/68 (86) 98 05/03/17 19:00 78 05/03/17 18:00 84 05/03/17 17:00 78 05/03/17 16:00 82 05/03/17 15:00 97.1 76 16 169/72 (104) 98 05/03/17 15:00 80 05/03/17 14:00 82 05/03/17 12:30 77 16 152/72 (98) 97 I/O 05/03/17 05/03/17 05/03/17 05/04/17 05/04/17 05/04/17 07:00 15:00 23:00 07:00 15:00 23:00 Intake Total 360 ml 120 ml 240 ml Output Total 1000 ml 3500 ml 400 ml Balance -640 ml -3500 ml -280 ml 240 ml Intake Oral 360 ml 120 ml 240 ml Output Urine Total 1000 ml 400 ml Hemodialysis 3500 ml # Voids 2 # Bowel Movements 0 1 3 (Eric Stevenson MD, R3) Result Diagram: 05/04/17 0509 05/04/17 0509 Imaging Last Impressions Carotid Artery Ultrasound 05/02/17 0000 Signed Impressions: Service Date/Time: Tuesday, May 02, 2017 12:26 - CONCLUSION: 1. Moderate calcified plaque in the left carotid bulb and proximal internal carotid artery with estimated 50-69%% stenosis based on velocity measurements. 2. The right carotid system is not evaluated since it was obscured by a central line. Keegan Santos MD Abdomen/Pelvis CT 04/29/17 0000 Signed Impressions: Service Date/Time: Saturday, April 29, 2017 10:38 - CONCLUSION: 1. Stable large right groin hematoma. 2. Vicarious excretion of contrast by the gallbladder and persistent contrast opacification of the kidneys characteristic of renal insufficiency. 3. Colonic diverticulosis without evidence of active inflammatory changes. 4. No evidence of acute process in the abdomen or pelvis. Reuben Carr MD Catheter Placement X-Ray 04/28/17 0000 Signed Impressions: Service Date/Time: Friday, April 28, 2017 16:14 - CONCLUSION: Uncomplicated venous catheter change as above. Stoney Morrow MD Lower Extremity Ultrasound 04/26/17 0000 Signed Impressions: Service Date/Time: Wednesday, April 26, 2017 14:24 - CONCLUSION: Large groin hematoma. No evidence of pseudoaneurysm Keegan Cedeno MD Chest X-Ray 04/22/17 0600 Signed Impressions: Service Date/Time: Saturday, April 22, 2017 02:19 - CONCLUSION: No acute cardiopulmonary disease identified. Trevor Townsend MD Renal Ultrasound 04/21/17 0000 Signed Impressions: Service Date/Time: Friday, April 21, 2017 17:11 - CONCLUSION: Stone in the lateral left kidney. No evidence of hydronephrosis or solid mass. No evidence of obstruction. Kirill Linder MD Objective Remarks General: Resting in bed in no acute distress Skin: Warm and dry. R ABD: Large hematoma from the right lower quadrant HEENT: EOM grossly I. CV: Regular rate and rhythm without murmurs. Normal peripheral perfusion. No significant LE edema Lungs: Normal rate. decreased air movement without wheezing to auscultation Abdomen: Soft, nontender, non-distended with normal bowel sounds. MSK: Not assessed at this exam- previously right third toe amputated, no swelling or tenderness Neuro: Awake, alert. Grossly normal CN. No peripheral motor/sensory defects appreciated Procedures Vascath 04/22/17 Initiate hemodialysis 04/22/17 Catheterization and stent placement on 04/28/17 (Eric Stevenson MD, R3) A/P Assessment and Plan 61 yo female with NSTEMI, acute COPD exacerbation, acute renal failure with chronic renal disease requiring hemodialysis. Cardiology and nephrology on board ; receiving dialysis. Cath 04/24 with multivessel CAD; undergoing 2 step catheterization with stenting. Discharge Planning Pending clinical course. Patient currently scheduled for cardiac catheterization with stenting in order to decrease contrast load as she is in acute renal failure. Patient to receive dialysis per nephrology schedule. (Eric Stevenson MD, R3) Attending Attestation Patient seen and examined. Case reviewed and discussed with the resident team( DR Stevenson). Agree with plan of care as discussed with me and documented in the resident note. (Juan Luis Flowers MD) Problem List: (1) NSTEMI (non-ST elevated myocardial infarction) ICD Codes: I21.4 - Non-ST elevation (NSTEMI) myocardial infarction Status: Acute Plan: Impression: Troponin elevated at admission along with atypical chest pain. Non-specific ST-T wave changes on initial EKG's. Patient initially placed on Heparin. 04/24/2017- Patient s/p Catheterization per Dr. Cole which demonstrated NSTEMI, multivessel coronary disease, new cardiomyopathy with EF 45-50% Heparin drip discontinued due to hematoma and anemia - Cardiology consulted -CV surgery initially consulted but decision made for stenting rather than CABG for multivessel disease due to renal failure and concern for poor surgical outcome -S/P cath/stenting 04/28 (L circumflex, obtuse marginal) -Postpone stenting due to persistent anemia - Continue DAPT with aspirin and Brillinta -Continue Lipitor 10 mg qHS, Coreg 3.125 mg bid -Hold RISSA/ARB (2) Acute on chronic kidney failure ICD Codes: N17.9 - Acute kidney failure, unspecified; N18.9 - Chronic kidney disease, unspecified Status: Acute Plan: 05/04: Cr 3.79 <- 4.84; 400ml urine output. 3500ml removed with last dialysis Nephrology consulted -PRN Dialysis -last dialysis 05/01 with 3500ml removal -Monitor electrolytes -Continue Bumex -Continue to monitor urine output, electrolytes - Avoid nephrotoxic agents, contrast agents Impression: Has a history of diabetes with diabetic nephropathy. Has proteinuria and oliguria with acute decrease in renal function. Her baseline creatinine is about 2.8, now with doubling of creatinine. Also with hyperkalemia and metabolic acidosis. Etiology includes chronic kidney disease with acute exacerbation possibly from poor cardiac output with NSTEMI. Renal ultrasound showing no obstruction, has stone that is non-obstructing Complement negative MIGUE negative, SPEP, urine immunofixation normal Hepatitis profile negative (3) Anemia ICD Codes: D64.9 - Anemia, unspecified Status: Acute Plan: 05/04: Hgb 6.9 <- 7.8 (05/03) -Continue to monitor H/H and transfuse as necessary: -s/p 4 U pRBC 04/26 and 04/29 -Will transfuse 2 additional U pRBC today with 1mg IV Bumex between pRBC -Heparin as needed for procedures -GI consulted -VANGIE, PPI, monitor HH and supportive care -Vascular surgery consulted -No surgical intervention needed at this time; follow RLE pulse checks and serial Hcts -Cleared from a vascular standpoint 04/27 Impression: Anemia in association with recent catheterization, R groin hematoma , positive hemmocult on recent heparin treatment 04/26- CT abdomen and pelvis 04/26: Right inguinal and right lower quadrant abdominal wall hematoma measuring 8.8 cm. Subcutaneous inflammatory changes which extend into the mons pubis region. Bilateral flank edema. Nonacute findings include small left pleural effusion, severe atherosclerotic disease, and sigmoid diverticulosis. No pseudoaneurysm. 04/26: LE US- large groin hematoma; no evidence of pseudoaneurysm 04/29- Repeat CT abdomen and pelvis on 04/29: Unchanged from previous CT abdomen (4) COPD (chronic obstructive pulmonary disease) ICD Codes: J44.9 - Chronic obstructive pulmonary disease, unspecified Status: Chronic Plan: History of COPD with recent upper respiratory symptoms and acute exacerbation, recently diagnosed with pneumonia while on cruise ship and was started on azithromycin. - IV Solumedrol 60 mg q12hrs started 04/21 - DuoNebs q6hrs scheduled - Levaquin empirically, renally dosed, started 04/22 Q48H - O2 supplementation with target O2 90% (5) Hyperkalemia ICD Codes: E87.5 - Hyperkalemia; N18.9 - Chronic kidney disease, unspecified Status: Resolved Plan: Hyperkalemia up to 6.0 with acute renal failure. Resolved with hemodialysis. - Continue management per nephrology (6) Hyponatremia ICD Codes: E87.1 - Hypo-osmolality and hyponatremia Status: Resolved Plan: Hyponatremia with acute renal failure, asymptomatic, resolved at this time. - IV fluids per nephrology - Monitor electrolytes - Hemodialysis per nephrology (7) DM2 (diabetes mellitus, type 2) ICD Codes: E11.9 - Type 2 diabetes mellitus without complications Status: Chronic Plan: History of diabetes type II - Sliding scale insulin with glucose goal of 140-180 (8) HTN (hypertension) ICD Codes: I10 - HTN (hypertension) Status: Chronic Plan: Impression: Mild hypertension during hospitalization with SBP 140s-160; recent SBP increase to 180's-190's - Will increase carvedilol to 6.25mg BID (9) Hypothyroidism ICD Codes: E03.9 - Hypothyroidism, unspecified Status: Chronic Plan: TSH normal - Levothyroxine 50 mcg daily (10) Constipation ICD Codes: K59.00 - Constipation, unspecified Plan: Impression: Patient reports feelings of constipation; last BM 2 days prior. -Discussed with patient recommendation for Bisacodyl suppository if desired this evening; patient also has PRN oral bowel motility agents available (11) Secondary hyperparathyroidism (of renal origin) ICD Codes: N25.81 - Secondary hyperparathyroidism of renal origin Status: Acute Plan: Patient with secondary hyperparathyroidism with significantly elevated phosphate and low calcium. Intact PTH 364.5 1,25 OH Vit D 11 -Will plan to initiate supplementation - Dietary phosphate restriction to 900 mg/day -Consider PhosLo -Management per Nephrology (12) DVT Prophylaxis Status: Acute Plan: Heparin drip discontinued due to anemia/ suspected active bleeding (13) Nutrition, metabolism, and development symptoms ICD Codes: R63.8 - Other symptoms and signs concerning food and fluid intake Status: Acute Plan: Heart healthy diet IV fluids per nephrology Phosphate restriction 900 mg/day for hyperphosphatemia Hyponatremia, hyperkalemia initially Receiving dialysis per nephrology Acute renal failure with CKD, monitor renal function Protonix IV 40 mg daily (Eric Stevenson MD, R3) Problem Qualifiers (1) Acute on chronic kidney failure: Qualified Codes: N17.9 - Acute kidney failure, unspecified; N18.9 - Chronic kidney disease, unspecified (2) Anemia: Qualified Codes: D64.9 - Anemia, unspecified (3) COPD (chronic obstructive pulmonary disease): (4) DM2 (diabetes mellitus, type 2): Qualified Codes: E11.8 - Type 2 diabetes mellitus with unspecified complications (5) HTN (hypertension): Qualified Codes: I10 - Essential (primary) hypertension (6) Hypothyroidism: Qualified Codes: E03.9 - Hypothyroidism, unspecified (7) Constipation: Qualified Codes: K59.00 - Constipation, unspecified Eric Stevenson MD, R3 May 04, 2017 10:57 Juan Luis Flowers MD May 05, 2017 14:15
[2017-05-04] MEDS ORDERED: BUMETANIDE INJ 1 MG/4 ML VIAL IV PUSH ONE ×2 (11:15→13:30)
[2017-05-04] MEDS: hydrALAZINE HCL 20 MG/ML VIAL IV PUSH PRN ×3 (13:35→23:51)
--- NOTE | 2017-05-04 14:09 | PD.CARD.PN ---
Subjective Subjective Remarks Catheterization cancelled due to low Hgb No chest pain/SOB, sitting up in the chair feeling well Objective Medications Current Medications Medications (Trade) Dose Ordered Sig/Des Route Start Time Stop Time Status Last Admin (Duoneb Neb) 1 ampule Q4HR NEB PRN INH 04/21/17 06:45 Miscellaneous Information 1 Q361D XX 04/21/17 06:45 (Chlorhexidine 2% Cloth) Taper DAILY@04 TOP 04/22/17 04:00 04/18/18 03:59 04/27/17 00:35 (Chlorhexidine 2% Cloth) 3 pack UNSCH PRN TOP 04/21/17 06:45 (Malaika-Colace) 1 tab BID PO 04/21/17 09:00 05/04/17 09:15 (Milk Of Magnesia Liq) 30 ml Q12H PRN PO 04/21/17 06:45 (Senokot) 17.2 mg Q12H PRN PO 04/21/17 06:45 05/02/17 12:22 (Dulcolax Supp) 10 mg DAILY PRN RECTAL 04/21/17 06:45 05/03/17 14:10 (Lactulose Liq) 30 ml DAILY PRN PO 04/21/17 06:45 05/03/17 17:30 (Aspirin Chew) 81 mg DAILY CHEW 04/22/17 09:00 05/04/17 09:13 (Coreg) 3.125 mg Q12HR PO 04/21/17 09:00 05/04/17 09:14 (Lipitor) 10 mg HS PO 04/21/17 21:00 05/03/17 20:40 (Vitamin B12) 500 mcg DAILY PO 04/21/17 09:00 05/04/17 09:16 (Synthroid) 50 mcg DAILY@0600 PO 04/21/17 07:00 05/04/17 06:51 Levofloxacin/ Dextrose 100 ml @ 100 mls/hr Q48H IV 04/21/17 12:00 05/03/17 14:10 (Restoril) 15 mg HS PRN PO 04/21/17 20:45 05/03/17 23:10 Sodium Chloride 1,000 ml @ 0 mls/hr Q0M PRN OTHER 04/22/17 14:04 (Heparin Inj) 8,000 units UNSCH PRN IV FLUSH 04/22/17 14:15 05/03/17 11:17 Sodium Chloride 1,000 ml @ 200 mls/hr Q5H PRN IV 04/22/17 14:04 Sodium Chloride 1,000 ml @ 0 mls/hr Q0M PRN OTHER 04/22/17 14:04 (Mannitol Inj) 12.5 gm UNSCH PRN IV 04/22/17 14:15 Albumin Human 100 ml @ 60 mls/hr UNSCH PRN IV 04/22/17 14:15 05/03/17 11:17 (NS Flush) 5 ml UNSCH PRN IV FLUSH 04/22/17 14:15 (Heparin Inj) UNSCH PRN .XX 04/22/17 14:15 05/03/17 11:17 (Gentamicin (Dialysis) Inj) 20 mg UNSCH PRN OTHER 04/22/17 14:15 05/03/17 11:17 (Zofran Inj) 4 mg UNSCH PRN IV PUSH 04/22/17 14:15 (Tylenol) 650 mg UNSCH PRN PO 04/22/17 14:15 04/25/17 12:21 (Benadryl) 25 mg UNSCH PRN PO 04/22/17 14:15 (Nitrostat Sl) 0.4 mg UNSCH PRN SL 04/22/17 14:15 (Catapres) 0.1 mg UNSCH PRN PO 04/22/17 14:15 04/27/17 22:31 (Gelfoam 12 Mm/7 Mm Top) 1 foam UNSCH PRN TOP 04/22/17 14:15 (Apresoline Inj) 10 mg Q30M PRN IV PUSH 04/23/17 13:15 05/04/17 13:35 (Phoslo) 2,001 mg TID PO 04/23/17 18:00 05/04/17 12:46 (Rocaltrol) 0.25 mcg DAILY PO 04/24/17 09:15 05/04/17 09:15 (Atropine Inj) 0.5 mg UNSCH PRN IV PUSH 04/24/17 10:00 (NS Flush) 2 ml BID IV FLUSH 04/24/17 21:00 05/04/17 09:13 (NS Flush) 2 ml UNSCH PRN IV FLUSH 04/24/17 15:45 (D50w (Vial) Inj) 50 ml UNSCH PRN IV PUSH 04/24/17 15:45 (Morphine Inj) 2 mg Q3H PRN IV PUSH 04/26/17 09:30 04/29/17 13:33 (Bumex Inj) 2 mg BID@09,18 IV PUSH 04/26/17 20:45 05/04/17 09:13 (Brilinta) 90 mg BID PO 04/29/17 09:00 05/04/17 09:14 (Percocet 5-325 Mg) 1 tab Q4H PRN PO 04/29/17 13:30 05/02/17 21:14 (Percocet 10-325 Mg) 1 tab Q4H PRN PO 04/29/17 13:30 05/04/17 09:12 (NovoLOG SUPPLEMENTAL SCALE) 1 ACHS SQ 04/30/17 21:00 05/04/17 11:53 (Levemir Inj) 5 units Q12HR SQ 04/30/17 21:00 05/04/17 09:16 (Glucagon Inj) 1 mg UNSCH PRN OTHER 04/30/17 18:15 (Protonix) 40 mg DAILY PO 05/01/17 12:30 05/04/17 09:15 (Reglan) 5 mg BIDAC PO 05/01/17 12:15 05/04/17 06:51 (SoluMEDROL INJ) 40 mg Q12HR IV PUSH 05/02/17 21:00 05/04/17 09:13 Sodium Chloride 250 ml @ 15 mls/hr ONCE ONCE IV 05/04/17 08:00 05/05/17 00:39 05/04/17 09:59 (Colyte Liq) 4,000 ml ONCE ONCE PO 05/04/17 16:00 05/04/17 16:01 UNV Vital Signs / I&O Vital Signs Date Time Temp Pulse Resp B/P (MAP) Pulse Ox O2 Delivery O2 Flow Rate FiO2 05/04/17 13:25 97.6 81 18 198/81 99 05/04/17 13:08 97.6 75 16 168/74 99 05/04/17 13:00 75 05/04/17 12:00 78 05/04/17 11:00 76 05/04/17 11:00 97.9 76 14 135/70 (91) 96 05/04/17 10:00 72 05/04/17 09:33 97.8 75 16 147/63 97 05/04/17 09:00 74 05/04/17 08:00 76 05/04/17 07:00 80 05/04/17 07:00 98.4 78 16 144/66 (92) 97 05/04/17 03:30 97.1 75 16 131/67 (88) 98 05/04/17 03:00 76 05/03/17 23:30 97.1 79 16 143/71 (95) 98 05/03/17 23:00 77 05/03/17 19:30 97.1 80 16 124/68 (86) 98 05/03/17 19:00 78 05/03/17 18:00 84 05/03/17 17:00 78 05/03/17 16:00 82 05/03/17 15:00 97.1 76 16 169/72 (104) 98 05/03/17 15:00 80 I/O 05/03/17 05/03/17 05/03/17 05/04/17 05/04/17 05/04/17 07:00 15:00 23:00 07:00 15:00 23:00 Intake Total 360 ml 120 ml 240 ml 400 ml Output Total 1000 ml 3500 ml 400 ml Balance -640 ml -3500 ml -280 ml 240 ml 400 ml Intake Oral 360 ml 120 ml 240 ml Packed Cells 400 ml Output Urine Total 1000 ml 400 ml Hemodialysis 3500 ml # Voids 2 # Bowel Movements 0 1 3 Physical Exam GENERAL: NAD, AAOx3 SKIN: Warm and dry. HEAD: Atraumatic. Normocephalic. EYES: Pupils equal and round. No scleral icterus. No injection or drainage. ENT: No nasal bleeding or discharge. Mucous membranes pink and moist. NECK: Trachea midline. No JVD. CARDIOVASCULAR: Regular rate and rhythm. RESPIRATORY: No accessory muscle use. Clear to auscultation. Breath sounds equal bilaterally. GASTROINTESTINAL: Abdomen soft, non-tender, nondistended. Hepatic and splenic margins not palpable. MUSCULOSKELETAL: Extremities without clubbing, cyanosis, or edema. No obvious deformities. Right abdominal wall with large ecchymosis layering out, left femoral no hematoma/bruit NEUROLOGICAL: Awake and alert. No obvious cranial nerve deficits. Motor grossly within normal limits. Five out of 5 muscle strength in the arms and legs. Normal speech. PSYCHIATRIC: Appropriate mood and affect; insight and judgment normal. Laboratory Laboratory Tests Test 05/04/17 05:09 White Blood Count 15.6 TH/MM3 Red Blood Count 2.22 MIL/MM3 Hemoglobin 6.9 GM/DL Hematocrit 20.6 % Mean Corpuscular Volume 92.8 FL Mean Corpuscular Hemoglobin 31.0 PG Mean Corpuscular Hemoglobin Concent 33.4 % Red Cell Distribution Width 15.3 % Platelet Count 117 TH/MM3 Mean Platelet Volume 9.4 FL Neutrophils (%) (Auto) 93.8 % Lymphocytes (%) (Auto) 1.5 % Monocytes (%) (Auto) 4.6 % Eosinophils (%) (Auto) 0.0 % Basophils (%) (Auto) 0.1 % Neutrophils # (Auto) 14.6 TH/MM3 Lymphocytes # (Auto) 0.2 TH/MM3 Monocytes # (Auto) 0.7 TH/MM3 Eosinophils # (Auto) 0.0 TH/MM3 Basophils # (Auto) 0.0 TH/MM3 CBC Comment DIFF FINAL Differential Comment Activated Partial Thromboplast Time 24.1 SEC Blood Urea Nitrogen 79 MG/DL Creatinine 3.55 MG/DL Random Glucose 221 MG/DL Calcium Level 8.2 MG/DL Sodium Level 136 MEQ/L Potassium Level 4.4 MEQ/L Chloride Level 97 MEQ/L Carbon Dioxide Level 29.7 MEQ/L Anion Gap 9 MEQ/L Estimat Glomerular Filtration Rate 13 ML/MIN Iron Level 46 MCG/DL Total Iron Binding Capacity 181 MCG/DL Percent Iron Saturation 25.5 % Assessment and Plan Problem List: (1) NSTEMI (non-ST elevated myocardial infarction) ICD Codes: I21.4 - Non-ST elevation (NSTEMI) myocardial infarction Status: Acute (2) Acute on chronic kidney failure ICD Codes: N17.9 - Acute kidney failure, unspecified; N18.9 - Chronic kidney disease, unspecified Status: Acute (3) HTN (hypertension) ICD Codes: I10 - HTN (hypertension) Status: Chronic (4) HLD (hyperlipidemia) ICD Codes: E78.5 - HLD (hyperlipidemia) Status: Chronic (5) Anemia ICD Codes: D64.9 - Anemia, unspecified Status: Acute Assessment and Plan 1) NSTEMI/CAD Multivessel CAD ASA/BB/Statin/Brilinta Turned down for CABG s/p PCI of LCX with DESx2 (mid 2.5x22, distal 2.25x15 overlapped), PCI OM1 with ROMAN (2.25x18) Will plan for medical management of LAD as had multiple episodes of drop in Hgb 2) LEEANN on CKD HD started Still making urine with increased output Attempt to decrease nephrotoxin medications (contrast) if possible, not sure if chronic yet 3) Anemia Post-procedure Now with right groin hematoma No PSA or RPB Most likely layering now, will continue to follow Significant drop in Hgb after heparin during PCI, Heme positive stools Discussed with GI, no significant GI bleed Will receive 2 units of PRBC today Consider C-scope? Right groin hematoma with no change, layering out Problem Qualifiers (1) Acute on chronic kidney failure: Qualified Codes: N17.9 - Acute kidney failure, unspecified; N18.9 - Chronic kidney disease, unspecified (2) HTN (hypertension): Qualified Codes: I10 - Essential (primary) hypertension (3) HLD (hyperlipidemia): Qualified Codes: E78.5 - Hyperlipidemia, unspecified (4) Anemia: Qualified Codes: D64.9 - Anemia, unspecified Hemanth Cole DO May 04, 2017 14:09
--- NOTE | 2017-05-04 14:31 | HHI.GIFU ---
Subjective Remarks Pt resting in bed comfortably. Reports she ate part of a salad and part of a sandwich for lunch. Denies N/V, abdominal pain. Exam does reveal mild, diffuse TTP. Had a bowel movement about an hour ago, nurse denies any obvious blood in stool or black, tarry stool, states there were some areas of pinkish tint. (Carole Cruz) Objective Vitals I&O Vital Signs Date Time Temp Pulse Resp B/P (MAP) Pulse Ox O2 Delivery O2 Flow Rate FiO2 05/04/17 14:00 78 05/04/17 13:25 97.6 81 18 198/81 99 05/04/17 13:08 97.6 75 16 168/74 99 05/04/17 13:00 75 05/04/17 12:00 78 05/04/17 11:00 76 05/04/17 11:00 97.9 76 14 135/70 (91) 96 05/04/17 10:00 72 05/04/17 09:33 97.8 75 16 147/63 97 05/04/17 09:00 74 05/04/17 08:00 76 05/04/17 07:00 80 05/04/17 07:00 98.4 78 16 144/66 (92) 97 05/04/17 03:30 97.1 75 16 131/67 (88) 98 05/04/17 03:00 76 05/03/17 23:30 97.1 79 16 143/71 (95) 98 05/03/17 23:00 77 05/03/17 19:30 97.1 80 16 124/68 (86) 98 05/03/17 19:00 78 05/03/17 18:00 84 05/03/17 17:00 78 05/03/17 16:00 82 05/03/17 15:00 97.1 76 16 169/72 (104) 98 05/03/17 15:00 80 I/O 05/03/17 05/03/17 05/03/17 05/04/17 05/04/17 05/04/17 07:00 15:00 23:00 07:00 15:00 23:00 Intake Total 360 ml 120 ml 240 ml 400 ml Output Total 1000 ml 3500 ml 400 ml Balance -640 ml -3500 ml -280 ml 240 ml 400 ml Intake Oral 360 ml 120 ml 240 ml Packed Cells 400 ml Output Urine Total 1000 ml 400 ml Hemodialysis 3500 ml # Voids 2 # Bowel Movements 0 1 3 Laboratory Laboratory Tests Test 05/04/17 05:09 White Blood Count 15.6 Red Blood Count 2.22 Hemoglobin 6.9 Hematocrit 20.6 Mean Corpuscular Volume 92.8 Mean Corpuscular Hemoglobin 31.0 Mean Corpuscular Hemoglobin Concent 33.4 Red Cell Distribution Width 15.3 Platelet Count 117 Mean Platelet Volume 9.4 Neutrophils (%) (Auto) 93.8 Lymphocytes (%) (Auto) 1.5 Monocytes (%) (Auto) 4.6 Eosinophils (%) (Auto) 0.0 Basophils (%) (Auto) 0.1 Neutrophils # (Auto) 14.6 Lymphocytes # (Auto) 0.2 Monocytes # (Auto) 0.7 Eosinophils # (Auto) 0.0 Basophils # (Auto) 0.0 CBC Comment DIFF FINAL Differential Comment Activated Partial Thromboplast Time 24.1 Blood Urea Nitrogen 79 Creatinine 3.55 Random Glucose 221 Calcium Level 8.2 Sodium Level 136 Potassium Level 4.4 Chloride Level 97 Carbon Dioxide Level 29.7 Anion Gap 9 Estimat Glomerular Filtration Rate 13 Iron Level 46 Total Iron Binding Capacity 181 Percent Iron Saturation 25.5 Date/Time Source Procedure Growth Status 04/29/17 09:30 Stool Stool Stool Occult Blood (CHUCK) - Final HEMOCCULT POSITIVE Complete 04/21/17 04:40 Nasal Aspirate Influenza Types A,B Antigen ([facility]) - Final NEGATIVE FOR FLU A AND B ANTIGEN.... Complete 04/21/17 08:20 Urine Catheterized Urine Urine Culture - Final NO GROWTH IN 48 HOURS. Complete Imaging Last Impressions Carotid Artery Ultrasound 05/02/17 0000 Signed Impressions: Service Date/Time: Tuesday, May 02, 2017 12:26 - CONCLUSION: 1. Moderate calcified plaque in the left carotid bulb and proximal internal carotid artery with estimated 50-69%% stenosis based on velocity measurements. 2. The right carotid system is not evaluated since it was obscured by a central line. Keegan Santos MD Abdomen/Pelvis CT 04/29/17 0000 Signed Impressions: Service Date/Time: Saturday, April 29, 2017 10:38 - CONCLUSION: 1. Stable large right groin hematoma. 2. Vicarious excretion of contrast by the gallbladder and persistent contrast opacification of the kidneys characteristic of renal insufficiency. 3. Colonic diverticulosis without evidence of active inflammatory changes. 4. No evidence of acute process in the abdomen or pelvis. Reuben Carr MD Catheter Placement X-Ray 04/28/17 0000 Signed Impressions: Service Date/Time: Friday, April 28, 2017 16:14 - CONCLUSION: Uncomplicated venous catheter change as above. Stoney Morrow MD Lower Extremity Ultrasound 04/26/17 0000 Signed Impressions: Service Date/Time: Wednesday, April 26, 2017 14:24 - CONCLUSION: Large groin hematoma. No evidence of pseudoaneurysm Keegan Cedeno MD Chest X-Ray 04/22/17 0600 Signed Impressions: Service Date/Time: Saturday, April 22, 2017 02:19 - CONCLUSION: No acute cardiopulmonary disease identified. Trevor Townsend MD Renal Ultrasound 04/21/17 0000 Signed Impressions: Service Date/Time: Friday, April 21, 2017 17:11 - CONCLUSION: Stone in the lateral left kidney. No evidence of hydronephrosis or solid mass. No evidence of obstruction. Kirill Linder MD Physical Exam HEENT: Normocephalic; atraumatic; no jaundice. CHEST: Diminshed CARDIAC: RRR ABDOMEN: Soft, nondistended, mild diffuse abdominal tenderness worse in the RLQ /flank area; no hepatosplenomegaly; bowel sounds are present in all four quadrants. EXTREMITIES: No clubbing, cyanosis, +1 pitting BLE edema. SKIN: Ecchymosis rlq/groin/flank DIGITAL FORENSIC EXAMINER: No focal deficits; alert and oriented times three. (Carole Cruz [facility]) Assessment and Plan Plan ASSESSMENT: Anemia with drop in Hgb. Pt had significant drop in Hgb after the cardiac cath. CT Scan at that time noted right inguinal and right lower quadrant abdominal wall hematoma measuring up to 8.8cm with surrounding subcutaneous inflammatory changes which extend into the mons pubis region. She was given 2 units of PRBC and responded appropriately, but then dropped again on 04/29 to 6.3/19.1. She was given an additional 2 units of PRBC and her H/H is now 10.1/29.3. Of note, she was found to have extensive ecchymosis to her right flank/right lower abdomen/groin. Pt currently receiving blood transfusion after another drop in H/H to 6.9/ 20.6. CT scan abdomen and pelvis (04/29/17)---> Stable large right groin hematoma, vicarious excretion of contrast by the gallbladder and persistent contrast opacification of the kidneys characteristic of renal insufficiency, colonic diverticulosis without evidence of active inflammatory changes, no evidence of acute process in the abdomen or pelvis. Stool hemoccult (+). GI was consulted for further evaluation. EGD/Colonoscopy (04/21/15)--> gastritis antrum, normal duodenum, retroflexed views revealed a hiatal hernia, diverticulosis sigmoid, descending semisolid stool throughout the colon, no gross lesions seen, retroflexed views revealed medium internal hemorrhoids, external hemorrhoids, decreased sphincter tone. Pathology duodenal mucosa without significant histopathologic abnormality, mild chronic gastritis, negative for H. Pylori. It was recommended that she have a repeat colonoscopy in 3 months with consideration for a capsule endoscopy. S/P EGD (05/01/17)---> gastritis, large amount of food residue consistent with gastroparesis, but no evidence of any active GI bleed from the stomach or the esophagus. PPI. Due to another drop in H/H to 6.9/20.6 will plan for colonoscopy tomorrow to rule out GI bleeding as source for anemia. - Hemoccult (+). EGD as above. No obvious active GI bleeding. Will plan for colonoscopy tomorrow to rule out GI source of anemia. - Hematoma. Had drop in Hgb after cardiac cath, CT revealed right inguinal and right lower quadrant abdominal wall hematoma measuring up to 8.8cm with surrounding subcutaneous inflammatory changes which extend into the mons pubis region. Rpt. CT Scan with stable large right groin hematoma. Continue to monitor HH , transfuse as needed - NSTEMI/CAD. S/P left heart catheterization (04/24/17)----> multivessel coronary artery disease, new cardiomyopathy with EF of 45-50%. Cardiac thoracic surgery was consulted for evaluation for CABG and she was restarted on heparin, ASA/BB/statin. Heparin now on hold because of hematoma. Plan was for repeat cath today, procedure cancelled, will plan for repeat after colonoscopy - Acute on chronic kidney disease with electrolyte abnormalities. S/P vascath, HD. - COPD, HTN, DM, Hypothyroidism, Secondary hyperparathyroidism, per attending. PLAN: - Clear liquid diet - GoLytely prep today - NPO after MN - Obtain consents for colonoscopy - Cont PPI - Cont Reglan - Monitor HH - Transfuse as needed - EGD outpatient in 1-2 months - Further recommendations to follow based on results of above - Pt seen and examined by Dr. East and myself and this note is written on his behalf (Carole Cruz) Physician Comments Patient seen and examined Agree with above Continue with current supportive care Monitor labs Colonoscopy tomorrow (Moi East MD) Carole Cruz May 04, 2017 14:31 Moi East MD May 04, 2017 19:13
[2017-05-04] MEDS ORDERED: PEG (High)/E-LYTE SOLN 4000 ML BTL PO ONE (16:00)
--- NOTE | 2017-05-04 17:45 | EKG ---
Date Performed: 05/03/2017 Time Performed: 14:15:48 PTAGE: 61 years EKG: CONSIDER ACUTE ST ELEVATION PR Possible accelerated junctional rhythm Extensive ST elevation, CONSIDER ACUTE INFARCT Abnormal ECG PREVIOUS TRACING : 04/22/2017 20.52 Since the prior tracing, the sinus tachycardia with PACs bustamante s resolved. Previous tracing was read as showing atrial fibrillation, but that is not correct. The ju nctional rhythm on the present tracing is, however, new. Evidence of the inferior wall infarction of indeterminate age is unchanged, and clinical correlation will be important to assess the serial EKGs and the presence or absence of active myocardial ischemia. DOCTOR: Sara Caballero Interpretating Date/Time 05/04/2017 17:44:14
[2017-05-04] MEDS ORDERED: CARVEDILOL 6.25 MG TAB PO ONE (19:00)
--- NOTE | 2017-05-04 20:14 | HHI.NPPN ---
Subjective General Problems: Anemia, Edema Renal Failure: Chronic, Acute, Stage IV Interval History Cardiac cath canceled due to anemia. Urine output has decreased. Review of Systems General Constitutional: Fatigue Respiratory Lungs: SOB Cardiovascular Cardiac: Edema, HAIR Objective Data Data 05/04/17 05/05/17 19:00 07:00 Intake Total 4400 ml Balance 4400 ml Intake Oral 3600 ml Packed Cells 800 ml # Voids 1 # Bowel Movements 1 Vital Signs Date Time Temp Pulse Resp B/P (MAP) Pulse Ox O2 Delivery O2 Flow Rate FiO2 05/04/17 18:00 84 05/04/17 17:00 89 05/04/17 16:00 77 05/04/17 15:00 97.5 78 16 181/83 (115) 97 05/04/17 15:00 78 05/04/17 14:00 78 05/04/17 13:25 97.6 81 18 198/81 99 05/04/17 13:08 97.6 75 16 168/74 99 05/04/17 13:00 75 05/04/17 12:00 78 05/04/17 11:00 76 05/04/17 11:00 97.9 76 14 135/70 (91) 96 05/04/17 10:00 72 05/04/17 09:33 97.8 75 16 147/63 97 05/04/17 09:00 74 05/04/17 08:00 76 05/04/17 07:00 80 05/04/17 07:00 98.4 78 16 144/66 (92) 97 05/04/17 03:30 97.1 75 16 131/67 (88) 98 05/04/17 03:00 76 05/03/17 23:30 97.1 79 16 143/71 (95) 98 05/03/17 23:00 77 -: 05/04/17 0509 05/04/17 0509 Tubes & Lines: Vas-Cath Physical Exam General Appearance: Well Developed, Well Nourished, No Acute Distress, Comfortable Eyes Eye Exam: Pupils Equal, Pupils Reactive Throat Throat Exam: Oral Mucosa [place] & Moist Neck Neck Exam: Neck Supple Pulmonary Resp Exam: No Distress, Crackles, Rhonchi, Decreased Bases, Diminished Breath Sounds Cardiology CV Exam: Regular, Normal Sinus Rhythm, Good Perfusion Gastrointestinal/Abdomen GI Exam: Soft, Non-Tender, Bowel Sounds Present Genitourinary Exam: Clear Urine Musculoskeletal MS Exam: Joints Intact, Normal Tone, Good Strength Integumentary Skin Exam: Clear, Warm, Dry, Intact Extremeties Extremities Exam: Pedal Pulses Palpable, Trace Edema, Pitting Edema Neurologic Neuro Exam: Alert, Awake, Oriented, Speech Clear, Moving All Extremities Psychiatric Psych Exam: Appropriate Responses Assessment/Plan Discussed Condition With: Patient, Daughter Assessment Summary: LEEANN/Acute Renal Failure, [place] Hyperparathyroid, Fluid/ Volume Overload, Proteinuria, Hypertension, Diabetes Mellitus, CKD Stage IV Electrolyte Assessment: Hypocalcemia, Hyponatremia Problem List: (1) Acute on chronic kidney failure ICD Codes: N17.9 - Acute kidney failure, unspecified; N18.9 - Chronic kidney disease, unspecified Status: Acute Plan: She has advanced renal disease, Creatinine 2.8 at baseline, CKD 4 Suspected underlying diabetic nephropathy, heavy proteinuria in the past She has required intermittent dialysis this admission both for fluid removal and post cardiac catheterization Monitor urine output. Monitor electrolytes and renal function. Dialysis as needed, it is possible that she has reached ESRD, but it remains to be determined. (2) NSTEMI (non-ST elevated myocardial infarction) ICD Codes: I21.4 - Non-ST elevation (NSTEMI) myocardial infarction Status: Acute Plan: Cardiology is following Cath postponed due to anemia. 2D echo: LVH, EF 45-50% Brilinta (3) DM2 (diabetes mellitus, type 2) ICD Codes: E11.9 - Type 2 diabetes mellitus without complications Status: Chronic Plan: Insulin as needed to maintain glucose of 140-180 mg/dL while hospitalized (4) Metabolic bone disease ICD Codes: E88.9 - Metabolic disorder, unspecified; M90.80 - Osteopathy in diseases classified elsewhere, unspecified site Plan: Continue Calcium acetate On calcitriol for secondary hyperparathyroidism (5) Metabolic acidosis ICD Codes: E87.2 - Acidosis Status: Acute Plan: Corrected Follow metabolic profile (6) COPD with acute exacerbation ICD Codes: J44.1 - Chronic obstructive pulmonary disease with (acute) exacerbation Plan: On nebulizers, oxygen She is also on Levaquin and solumedrol (7) Anemia ICD Codes: D64.9 - Anemia, unspecified Status: Acute Plan: she received 2 units over the weekend. Monitor Hb Repeat CT abd/pelvis confirmed hematoma (8) Hyperkalemia ICD Codes: E87.5 - Hyperkalemia; N18.9 - Chronic kidney disease, unspecified Status: Resolved Plan: Due to reduction in GFR and metabolic acidosis Improved with dialysis, monitor for recurrence Problem Qualifiers (1) Acute on chronic kidney failure: Qualified Codes: N17.9 - Acute kidney failure, unspecified; N18.9 - Chronic kidney disease, unspecified (2) DM2 (diabetes mellitus, type 2): (3) Anemia: Qualified Codes: D64.9 - Anemia, unspecified Fantasma Corral MD May 04, 2017 20:14
[2017-05-04] MEDS: ATORVASTATIN 10 MG TAB PO SCH (20:51)
[2017-05-04 23:10] LABS: HEMATOCRIT 32.6 % (35.0-46.0); MEAN CELL VOLUME 84.7 FL (80.0-100.0); MEAN CORPUSCULAR HEMOGLOBIN 29.5 PG (27.0-34.0); MEAN CORPUSCULAR HGB CONC 34.8 % (32.0-36.0); PLATELET COUNT 120 TH/MM3 (150-450); RED BLOOD COUNT 3.85 MIL/MM3 (4.00-5.30); RED CELL DISTRIBUTION WIDTH 20.3 % (11.6-17.2); WHITE BLOOD COUNT 23.2 TH/MM3 (4.0-11.0)
[2017-05-04 23:19] LABS: REVIEW FLAG FINAL
[2017-05-04] MEDS: TEMAZEPAM 15 MG CAP PO PRN (23:51)
--- NOTE | 2017-05-04 23:55 | HHI.FPPN ---
Objective Vitals Vital Signs Date Time Temp Pulse Resp B/P (MAP) Pulse Ox O2 Delivery O2 Flow Rate FiO2 05/04/17 20:00 97.8 81 121/84 (96) 97 05/04/17 19:00 92 05/04/17 18:00 84 05/04/17 17:00 89 05/04/17 16:00 77 05/04/17 15:00 97.5 78 16 181/83 (115) 97 05/04/17 15:00 78 05/04/17 14:00 78 05/04/17 13:25 97.6 81 18 198/81 99 05/04/17 13:08 97.6 75 16 168/74 99 05/04/17 13:00 75 05/04/17 12:00 78 05/04/17 11:00 76 05/04/17 11:00 97.9 76 14 135/70 (91) 96 05/04/17 10:00 72 05/04/17 09:33 97.8 75 16 147/63 97 05/04/17 09:00 74 05/04/17 08:00 76 05/04/17 07:00 80 05/04/17 07:00 98.4 78 16 144/66 (92) 97 05/04/17 03:30 97.1 75 16 131/67 (88) 98 05/04/17 03:00 76 I/O 05/04/17 05/04/17 05/04/17 05/05/17 05/05/17 05/05/17 07:00 15:00 23:00 07:00 15:00 23:00 Intake Total 240 ml 400 ml 4000 ml Balance 240 ml 400 ml 4000 ml Intake Oral 240 ml 3600 ml Packed Cells 400 ml 400 ml # Voids 2 1 # Bowel Movements 3 1 Result Diagram: 05/04/17 2231 05/04/17 0509 Objective Remarks General: Resting in bed in no acute distress; receiving dialysis Skin: Warm and dry. R ABD: Large hematoma from the right lower quadrant HEENT: EOM grossly I. CV: Regular rate and rhythm without murmurs. Normal peripheral perfusion. No significant LE edema Lungs: Normal rate. decreased air movement without wheezing to auscultation Abdomen: Soft, nontender, non-distended with normal bowel sounds. MSK: Not assessed at this exam- previously right third toe amputated, no swelling or tenderness Neuro: Awake, alert. Grossly normal CN. No peripheral motor/sensory defects appreciated Procedures Vascath 04/22/17 Initiate hemodialysis 04/22/17 Catheterization and stent placement on 04/28/17 A/P Assessment and Plan 61 yo female with NSTEMI, acute COPD exacerbation, acute renal failure with chronic renal disease requiring hemodialysis. Cardiology and nephrology on board ; receiving dialysis. Cath 04/24 with multivessel CAD; undergoing 2 step catheterization with stenting. Discharge Planning Pending clinical course. Patient currently scheduled for cardiac catheterization with stenting in order to decrease contrast load as she is in acute renal failure. Patient to receive dialysis per nephrology schedule. Problem List: (1) NSTEMI (non-ST elevated myocardial infarction) ICD Codes: I21.4 - Non-ST elevation (NSTEMI) myocardial infarction Status: Acute Plan: Impression: Troponin elevated at admission along with atypical chest pain. Non-specific ST-T wave changes on initial EKG's. Patient initially placed on Heparin. 04/24/2017- Patient s/p Catheterization per Dr. Cole which demonstrated NSTEMI, multivessel coronary disease, new cardiomyopathy with EF 45-50% Heparin drip discontinued due to hematoma and anemia - Cardiology consulted -CV surgery initially consulted but decision made for stenting rather than CABG for multivessel disease due to renal failure and concern for poor surgical outcome -S/P cath/stenting 04/28 (L circumflex, obtuse marginal) -Plan for stenting tomorrow, 05/04 - Continue DAPT with aspirin and Brillinta -Continue Lipitor 10 mg qHS, Coreg 3.125 mg bid -Hold RISSA/ARB (2) Acute on chronic kidney failure ICD Codes: N17.9 - Acute kidney failure, unspecified; N18.9 - Chronic kidney disease, unspecified Status: Acute Plan: 05/03: Cr 4.84 <- 4.16; 1400ml urine output overnight. Patient currently receiving dialysis Nephrology consulted -PRN Dialysis -last dialysis 05/01 with 3500ml removal -Monitor electrolytes -Continue Bumex -Continue to monitor urine output, electrolytes - Avoid nephrotoxic agents, contrast agents Impression: Has a history of diabetes with diabetic nephropathy. Has proteinuria and oliguria with acute decrease in renal function. Her baseline creatinine is about 2.8, now with doubling of creatinine. Also with hyperkalemia and metabolic acidosis. Etiology includes chronic kidney disease with acute exacerbation possibly from poor cardiac output with NSTEMI. Renal ultrasound showing no obstruction, has stone that is non-obstructing Complement negative MIGUE negative, SPEP, urine immunofixation normal Hepatitis profile negative (3) Anemia ICD Codes: D64.9 - Anemia, unspecified Status: Acute Plan: 05/03: Hgb 8<- 8.4 (01/30) <- Hgb 10.1 (05/01) -Continue to monitor H/H and transfuse as necessary: -s/p 4 U pRBC 04/26 and 04/29 -2 additional U pRBC ordered since Hgb <9; will defer timing of transfusion to Cardiology/Nephrology based on Cath plans -Heparin as needed for procedures -GI consulted -VANGIE, PPI, monitor HH and supportive care -Vascular surgery consulted -No surgical intervention needed at this time; follow RLE pulse checks and serial Hcts -Cleared from a vascular standpoint 04/27 Impression: Anemia in association with recent catheterization, R groin hematoma , positive hemmocult on recent heparin treatment 04/26- CT abdomen and pelvis 04/26: Right inguinal and right lower quadrant abdominal wall hematoma measuring 8.8 cm. Subcutaneous inflammatory changes which extend into the mons pubis region. Bilateral flank edema. Nonacute findings include small left pleural effusion, severe atherosclerotic disease, and sigmoid diverticulosis. No pseudoaneurysm. 04/26: LE US- large groin hematoma; no evidence of pseudoaneurysm 04/29- Repeat CT abdomen and pelvis on 04/29: Unchanged from previous CT abdomen (4) COPD (chronic obstructive pulmonary disease) ICD Codes: J44.9 - Chronic obstructive pulmonary disease, unspecified Status: Chronic Plan: History of COPD with recent upper respiratory symptoms and acute exacerbation, recently diagnosed with pneumonia while on cruise ship and was started on azithromycin. - IV Solumedrol 60 mg q12hrs started 04/21 - DuoNebs q6hrs scheduled - Levaquin empirically, renally dosed, started 04/22 Q48H - O2 supplementation with target O2 90% (5) Hyperkalemia ICD Codes: E87.5 - Hyperkalemia; N18.9 - Chronic kidney disease, unspecified Status: Resolved Plan: Hyperkalemia up to 6.0 with acute renal failure. Resolved with hemodialysis. - Continue management per nephrology (6) Hyponatremia ICD Codes: E87.1 - Hypo-osmolality and hyponatremia Status: Resolved Plan: Hyponatremia with acute renal failure, asymptomatic, resolved at this time. - IV fluids per nephrology - Monitor electrolytes - Hemodialysis per nephrology (7) DM2 (diabetes mellitus, type 2) ICD Codes: E11.9 - Type 2 diabetes mellitus without complications Status: Chronic Plan: History of diabetes type II - Sliding scale insulin with glucose goal of 140-180 (8) HTN (hypertension) ICD Codes: I10 - HTN (hypertension) Status: Chronic Plan: Impression: Mild hypertension during hospitalization with SBP 140s-160 - Continue carvedilol 3.125 bid -Will plan for dosage increase if persistent (9) Hypothyroidism ICD Codes: E03.9 - Hypothyroidism, unspecified Status: Chronic Plan: TSH normal - Levothyroxine 50 mcg daily (10) Constipation ICD Codes: K59.00 - Constipation, unspecified Plan: Impression: Patient reports feelings of constipation; last BM 2 days prior. -Discussed with patient recommendation for Bisacodyl suppository if desired this evening; patient also has PRN oral bowel motility agents available (11) Secondary hyperparathyroidism (of renal origin) ICD Codes: N25.81 - Secondary hyperparathyroidism of renal origin Status: Acute Plan: Patient with secondary hyperparathyroidism with significantly elevated phosphate and low calcium. Intact PTH 364.5 1,25 OH Vit D 11 -Will plan to initiate supplementation - Dietary phosphate restriction to 900 mg/day -Consider PhosLo -Management per Nephrology (12) DVT Prophylaxis Status: Acute Plan: Heparin drip discontinued due to anemia/ suspected active bleeding (13) Nutrition, metabolism, and development symptoms ICD Codes: R63.8 - Other symptoms and signs concerning food and fluid intake Status: Acute Plan: Heart healthy diet IV fluids per nephrology Phosphate restriction 900 mg/day for hyperphosphatemia Hyponatremia, hyperkalemia initially Receiving dialysis per nephrology Acute renal failure with CKD, monitor renal function Protonix IV 40 mg daily Problem Qualifiers (1) Acute on chronic kidney failure: Qualified Codes: N17.9 - Acute kidney failure, unspecified; N18.9 - Chronic kidney disease, unspecified (2) Anemia: Qualified Codes: D64.9 - Anemia, unspecified (3) COPD (chronic obstructive pulmonary disease): (4) DM2 (diabetes mellitus, type 2): (5) HTN (hypertension): Qualified Codes: I10 - Essential (primary) hypertension (6) Hypothyroidism: Qualified Codes: E03.9 - Hypothyroidism, unspecified (7) Constipation: Qualified Codes: K59.00 - Constipation, unspecified Eric Stevenson MD, R3 May 04, 2017 23:55
[2017-05-05] VITALS (28 sets, daily range): BP systolic 142–193; BP diastolic 63–94; PULSE 73–92; RESP 18; TEMP 97.5–98.2; O2SAT 94–96
[2017-05-05] MEDS: LEVOTHYROXINE SODIUM 50 MCG TAB PO SCH (05:20)
[2017-05-05] MEDS: METOCLOPRAMIDE HCL 10 MG TAB PO SCH ×2 (05:20→17:17)
[2017-05-05] MEDS: oxyCODONE/ACETAMINOPHEN 10 MG/325 MG TAB PO PRN ×3 (05:24→20:16)
[2017-05-05] MEDS: INSULIN ASPART SUPPLEMENTAL SCALE SQ SCH ×4 (08:00→20:16)
--- NOTE | 2017-05-05 08:47 | HHI.NPPN ---
Subjective General Problems: Anemia, Edema Renal Failure: Chronic, Acute, Stage IV Interval History Seen during dialysis. Her urine output has decreased. She has edema. Is to have colonoscopy today. (Cris Telles) Review of Systems General Constitutional: Fatigue (Cris Telles) Respiratory Lungs: SOB (Cris Telels) Cardiovascular Cardiac: Edema, HAIR (Cris Telles) Objective Data Data Vital Signs Date Time Temp Pulse Resp B/P (MAP) Pulse Ox O2 Delivery O2 Flow Rate FiO2 05/05/17 08:33 98.1 74 18 192/94 (126) 94 05/05/17 08:00 74 05/05/17 07:00 74 05/05/17 06:04 73 05/05/17 05:00 76 05/05/17 04:00 79 05/05/17 03:00 76 05/05/17 03:00 97.5 80 153/65 (94) 95 05/05/17 02:15 73 05/05/17 01:00 76 05/05/17 00:34 98.2 79 193/83 (119) 96 05/05/17 00:00 76 05/04/17 23:00 76 05/04/17 22:00 76 05/04/17 21:00 78 05/04/17 20:00 97.8 81 121/84 (96) 97 05/04/17 20:00 80 05/04/17 19:00 92 05/04/17 18:00 84 05/04/17 17:00 89 05/04/17 16:00 77 05/04/17 15:00 97.5 78 16 181/83 (115) 97 05/04/17 15:00 78 05/04/17 14:00 78 05/04/17 13:25 97.6 81 18 198/81 99 05/04/17 13:08 97.6 75 16 168/74 99 05/04/17 13:00 75 05/04/17 12:00 78 05/04/17 11:00 76 05/04/17 11:00 97.9 76 14 135/70 (91) 96 05/04/17 10:00 72 05/04/17 09:33 97.8 75 16 147/63 97 05/04/17 09:00 74 (Cris Telles) -: 05/04/17 2231 05/04/17 0509 Imaging Last Impressions Carotid Artery Ultrasound 05/02/17 0000 Signed Impressions: Service Date/Time: Tuesday, May 02, 2017 12:26 - CONCLUSION: 1. Moderate calcified plaque in the left carotid bulb and proximal internal carotid artery with estimated 50-69%% stenosis based on velocity measurements. 2. The right carotid system is not evaluated since it was obscured by a central line. Keegan Santos MD Abdomen/Pelvis CT 04/29/17 0000 Signed Impressions: Service Date/Time: Saturday, April 29, 2017 10:38 - CONCLUSION: 1. Stable large right groin hematoma. 2. Vicarious excretion of contrast by the gallbladder and persistent contrast opacification of the kidneys characteristic of renal insufficiency. 3. Colonic diverticulosis without evidence of active inflammatory changes. 4. No evidence of acute process in the abdomen or pelvis. Reuben Carr MD Catheter Placement X-Ray 04/28/17 0000 Signed Impressions: Service Date/Time: Friday, April 28, 2017 16:14 - CONCLUSION: Uncomplicated venous catheter change as above. Stoney Morrow MD Lower Extremity Ultrasound 04/26/17 0000 Signed Impressions: Service Date/Time: Wednesday, April 26, 2017 14:24 - CONCLUSION: Large groin hematoma. No evidence of pseudoaneurysm Keegan Cedeno MD Chest X-Ray 04/22/17 0600 Signed Impressions: Service Date/Time: Saturday, April 22, 2017 02:19 - CONCLUSION: No acute cardiopulmonary disease identified. Trevor Townsend MD Renal Ultrasound 04/21/17 0000 Signed Impressions: Service Date/Time: Friday, April 21, 2017 17:11 - CONCLUSION: Stone in the lateral left kidney. No evidence of hydronephrosis or solid mass. No evidence of obstruction. Kirill Linder MD Tubes & Lines: Vas-Cath (Cris Telles) Physical Exam General Appearance: Well Developed, Well Nourished, No Acute Distress, Comfortable (Cris Telles) Eyes Eye Exam: Pupils Equal, Pupils Reactive (Elfego,Cris B. [employer]) Throat Throat Exam: Oral Mucosa Fletcher & Moist (Cris Telles. [employer]) Neck Neck Exam: Neck Supple (Cris TellesP) Pulmonary Resp Exam: No Distress, Crackles, Rhonchi, Decreased Bases, Diminished Breath Sounds (Cris Telles. [employer]) Cardiology CV Exam: Regular, Normal Sinus Rhythm, Good Perfusion (Cris Telles. [employer]) Gastrointestinal/Abdomen GI Exam: Soft, Non-Tender, Bowel Sounds Present GI Remarks RLQ ecchymosis (Cris Telles. [employer]) Genitourinary Exam: Clear Urine (Cris Telles [employer]) Musculoskeletal MS Exam: Joints Intact, Normal Tone, Good Strength (Cris Telles [employer]) Integumentary Skin Exam: Clear, Warm, Dry, Intact (Cris Telles [employer]) Extremeties Extremities Exam: Pedal Pulses Palpable, Trace Edema, Pitting Edema (Cris Telles [employer]) Neurologic Neuro Exam: Alert, Awake, Oriented, Speech Clear, Moving All Extremities (Cris Telles. [employer]) Psychiatric Psych Exam: Appropriate Responses (Cris Telles) Assessment/Plan Discussed Condition With: Patient, Daughter Assessment Summary: LEEANN/Acute Renal Failure, [place] Hyperparathyroid, Fluid/ Volume Overload, Proteinuria, Hypertension, Diabetes Mellitus, CKD Stage IV Electrolyte Assessment: Hypocalcemia Problem List: (1) Acute on chronic kidney failure ICD Codes: N17.9 - Acute kidney failure, unspecified; N18.9 - Chronic kidney disease, unspecified Status: Acute Plan: She has advanced renal disease, Creatinine 2.8 at baseline, CKD 4 Suspected underlying diabetic nephropathy, heavy proteinuria in the past She has required intermittent dialysis this admission both for fluid removal and post cardiac catheterization Was dialyzed Monday and Monday this week Seen during dialysis today on a 2K, 350 BFR, goal 3L Monitor over the weekend, HD if needed on Monday Monitor urine output. Monitor electrolytes and renal function. It is possible that she has reached ESRD, but it remains to be determined. Avoid nephrotoxic agents. (2) NSTEMI (non-ST elevated myocardial infarction) ICD Codes: I21.4 - Non-ST elevation (NSTEMI) myocardial infarction Status: Acute Plan: Cardiology is following Has had 2 catheterizations this admission Repeat Cath postponed due to anemia. Medical management recommended. 2D echo: LVH, EF 45-50% On Brilinta (3) DM2 (diabetes mellitus, type 2) ICD Codes: E11.9 - Type 2 diabetes mellitus without complications Status: Chronic Plan: Insulin as needed to maintain glucose of 140-180 mg/dL while hospitalized (4) Metabolic bone disease ICD Codes: E88.9 - Metabolic disorder, unspecified; M90.80 - Osteopathy in diseases classified elsewhere, unspecified site Plan: Continue Calcium acetate On calcitriol for secondary hyperparathyroidism (5) Metabolic acidosis ICD Codes: E87.2 - Acidosis Status: Acute Plan: Corrected Follow metabolic profile (6) COPD with acute exacerbation ICD Codes: J44.1 - Chronic obstructive pulmonary disease with (acute) exacerbation Plan: On nebulizers, oxygen She is also on Levaquin and solumedrol (7) Anemia ICD Codes: D64.9 - Anemia, unspecified Status: Acute Plan: she received 2 units over the weekend. Monitor Hb Repeat CT abd/pelvis confirmed hematoma Start venofer colonoscopy planned (8) Hyperkalemia ICD Codes: E87.5 - Hyperkalemia; N18.9 - Chronic kidney disease, unspecified Status: Resolved Plan: Due to reduction in GFR and metabolic acidosis Improved with dialysis, monitor for recurrence (Cris Telles) Problem List: (1) Acute on chronic kidney failure ICD Codes: N17.9 - Acute kidney failure, unspecified; N18.9 - Chronic kidney disease, unspecified Status: Acute Plan: She has advanced renal disease, Creatinine 2.8 at baseline, CKD 4 Suspected underlying diabetic nephropathy, heavy proteinuria in the past She has required intermittent dialysis this admission both for fluid removal and post cardiac catheterization Was dialyzed Monday and Monday this week Seen during dialysis today on a 2K, 350 BFR, goal 3L Monitor over the weekend, HD if needed on Monday Monitor urine output. Monitor electrolytes and renal function. It is possible that she has reached ESRD, but it remains to be determined. Avoid nephrotoxic agents. (2) NSTEMI (non-ST elevated myocardial infarction) ICD Codes: I21.4 - Non-ST elevation (NSTEMI) myocardial infarction Status: Acute Plan: Cardiology is following Has had 2 catheterizations this admission Repeat Cath postponed due to anemia. Medical management recommended. 2D echo: LVH, EF 45-50% On Brilinta (3) DM2 (diabetes mellitus, type 2) ICD Codes: E11.9 - Type 2 diabetes mellitus without complications Status: Chronic Plan: Insulin as needed to maintain glucose of 140-180 mg/dL while hospitalized (4) Metabolic bone disease ICD Codes: E88.9 - Metabolic disorder, unspecified; M90.80 - Osteopathy in diseases classified elsewhere, unspecified site Plan: Continue Calcium acetate On calcitriol for secondary hyperparathyroidism (5) Metabolic acidosis ICD Codes: E87.2 - Acidosis Status: Acute Plan: Corrected Follow metabolic profile (6) COPD with acute exacerbation ICD Codes: J44.1 - Chronic obstructive pulmonary disease with (acute) exacerbation Plan: On nebulizers, oxygen She is also on Levaquin and solumedrol (7) Anemia ICD Codes: D64.9 - Anemia, unspecified Status: Acute Plan: she received 2 units over the weekend. Monitor Hb Repeat CT abd/pelvis confirmed hematoma Start venofer colonoscopy planned (8) Hyperkalemia ICD Codes: E87.5 - Hyperkalemia; N18.9 - Chronic kidney disease, unspecified Status: Resolved Plan: Due to reduction in GFR and metabolic acidosis Improved with dialysis, monitor for recurrence Plan patient was seen and examined. Dialyzed today. Urine output is marginal. Agree with above assessment and plan. May need continued dialysis, may have reached ESRD. (Fantasma Corral MD) Problem Qualifiers (1) Acute on chronic kidney failure: Qualified Codes: N17.9 - Acute kidney failure, unspecified; N18.9 - Chronic kidney disease, unspecified (2) DM2 (diabetes mellitus, type 2): Qualified Codes: E11.8 - Type 2 diabetes mellitus with unspecified complications (3) Anemia: Qualified Codes: D64.9 - Anemia, unspecified Cris Telles May 05, 2017 08:47 Fantasma Corral MD May 05, 2017 14:33
[2017-05-05 09:00] LABS: APTT (PATIENT) 23.8 SEC (24.3-30.1)
[2017-05-05] MEDS: SODIUM CHLORIDE 0.9% FLUSH 10 ML FLUSH IV FLUSH SCH ×2 (09:00→20:17)
[2017-05-05] MEDS: INSULIN DETEMIR 100 UNITS/ML VIAL SQ SCH ×2 (09:00→20:17)
[2017-05-05] MEDS: TICAGRELOR 90 MG TAB PO SCH ×2 (09:00→20:18)
[2017-05-05] MEDS: DOCUSATE SODIUM 50 MG/SENNA 8.6 MG TAB PO SCH ×2 (09:00→20:17)
[2017-05-05] MEDS: CALCIUM ACETATE 667 MG CAP PO SCH ×3 (09:00→17:20)
--- NOTE | 2017-05-05 09:10 | RSPPFT ---
DATE OF PROCEDURE: 04/25/17 COMMENTS: VOLUMES DYNAMIC: FVC moderately reduced; FEV1 severely reduced. FLOWS: FEV1% moderately reduced; FEF 25-75 severely reduced. IMPRESSION: Moderate to severe obstructive ventilatory defect.
[2017-05-05 09:12] LABS: AUTOMATED NEUTROPHIL # 16.1 TH/MM3 (1.8-7.7); BASOPHIL % 0.1 % (0.0-2.0); HEMATOCRIT 32.8 % (35.0-46.0); HEMO FLAGS DIFF FINAL; LYMPH % 2.9 % (9.0-44.0); LYMPHOCYTE # 0.5 TH/MM3 (1.0-4.8); MEAN CELL VOLUME 85.6 FL (80.0-100.0); MEAN CORPUSCULAR HEMOGLOBIN 29.7 PG (27.0-34.0); MEAN CORPUSCULAR HGB CONC 34.7 % (32.0-36.0); MONO % 6.2 % (0.0-8.0); NEUT % 90.8 % (16.0-70.0); PLATELET COUNT 128 TH/MM3 (150-450); RED BLOOD COUNT 3.83 MIL/MM3 (4.00-5.30); RED CELL DISTRIBUTION WIDTH 19.7 % (11.6-17.2); WHITE BLOOD COUNT 17.7 TH/MM3 (4.0-11.0)
[2017-05-05] MEDS: IRON SUCROSE INJ 100 MG in SODIUM CHLORIDE 0.9% INJ 100 ML IV SCH ×2 (11:08→16:10)
[2017-05-05] MEDS: GENTAMICIN SULFATE (DIALYSIS USE ONLY) 20 MG/2 ML VIAL OTHER PRN (11:09)
[2017-05-05] MEDS: HEPARIN SODIUM - IV 10,000 UNITS/10 ML VIAL PRN (11:09)
[2017-05-05] MEDS ORDERED: PROPOFOL 200 MG/20 ML AMP IV ONE (12:00)
[2017-05-05] MEDS ORDERED: LIDOCAINE HCL 1% PF 5 ML SYRINGE OTHER ONE (12:00)
--- NOTE | 2017-05-05 12:10 | HHI.FPPN ---
Subjective Remarks Mrs. Alicia was afebrile with HTN overnight (max SBP 192). Patient reports that she has been feeling well today; no reported chest pain, shortness of breath, or abdominal pain. Patient has been able to sit at bedside chair. Patient reports that she has had some bowel movements and tolerated her colonoscopy prep well. Patient reports some urination [400ml output overnight]. Objective Vitals Vital Signs Date Time Temp Pulse Resp B/P (MAP) Pulse Ox O2 Delivery O2 Flow Rate FiO2 05/05/17 10:00 76 05/05/17 09:00 73 05/05/17 08:33 98.1 74 18 192/94 (126) 94 05/05/17 08:00 74 05/05/17 07:00 74 05/05/17 06:04 73 05/05/17 05:00 76 05/05/17 04:00 79 05/05/17 03:00 76 05/05/17 03:00 97.5 80 153/65 (94) 95 05/05/17 02:15 73 05/05/17 01:00 76 05/05/17 00:34 98.2 79 193/83 (119) 96 05/05/17 00:00 76 05/04/17 23:00 76 05/04/17 22:00 76 05/04/17 21:00 78 05/04/17 20:00 97.8 81 121/84 (96) 97 05/04/17 20:00 80 05/04/17 19:00 92 05/04/17 18:00 84 05/04/17 17:00 89 05/04/17 16:00 77 05/04/17 15:00 97.5 78 16 181/83 (115) 97 05/04/17 15:00 78 05/04/17 14:00 78 05/04/17 13:25 97.6 81 18 198/81 99 05/04/17 13:08 97.6 75 16 168/74 99 05/04/17 13:00 75 05/04/17 12:00 78 I/O 05/04/17 05/04/17 05/04/17 05/05/17 05/05/17 05/05/17 07:00 15:00 23:00 07:00 15:00 23:00 Intake Total 240 ml 400 ml 4000 ml 420 ml Balance 240 ml 400 ml 4000 ml 420 ml Intake Oral 240 ml 3600 ml 420 ml Packed Cells 400 ml 400 ml # Voids 2 1 4 # Bowel Movements 3 1 4 Result Diagram: 05/05/17 0759 05/04/17 0509 Imaging Last Impressions Carotid Artery Ultrasound 05/02/17 0000 Signed Impressions: Service Date/Time: Tuesday, May 02, 2017 12:26 - CONCLUSION: 1. Moderate calcified plaque in the left carotid bulb and proximal internal carotid artery with estimated 50-69%% stenosis based on velocity measurements. 2. The right carotid system is not evaluated since it was obscured by a central line. Keegan Santos MD Abdomen/Pelvis CT 04/29/17 0000 Signed Impressions: Service Date/Time: Saturday, April 29, 2017 10:38 - CONCLUSION: 1. Stable large right groin hematoma. 2. Vicarious excretion of contrast by the gallbladder and persistent contrast opacification of the kidneys characteristic of renal insufficiency. 3. Colonic diverticulosis without evidence of active inflammatory changes. 4. No evidence of acute process in the abdomen or pelvis. Reuben Carr MD Catheter Placement X-Ray 04/28/17 0000 Signed Impressions: Service Date/Time: Friday, April 28, 2017 16:14 - CONCLUSION: Uncomplicated venous catheter change as above. Stoney Morrow MD Lower Extremity Ultrasound 04/26/17 0000 Signed Impressions: Service Date/Time: Wednesday, April 26, 2017 14:24 - CONCLUSION: Large groin hematoma. No evidence of pseudoaneurysm Keegan Cedeno MD Chest X-Ray 04/22/17 0600 Signed Impressions: Service Date/Time: Saturday, April 22, 2017 02:19 - CONCLUSION: No acute cardiopulmonary disease identified. Trevor Townsend MD Renal Ultrasound 04/21/17 0000 Signed Impressions: Service Date/Time: Friday, April 21, 2017 17:11 - CONCLUSION: Stone in the lateral left kidney. No evidence of hydronephrosis or solid mass. No evidence of obstruction. Kirill Linder MD Objective Remarks General: Resting in bed in no acute distress Skin: Warm and dry. R ABD: Large hematoma from the right lower quadrant HEENT: EOM grossly I. CV: Regular rate and rhythm without murmurs. Normal peripheral perfusion. No significant LE edema Lungs: Normal rate. decreased air movement without wheezing to auscultation Abdomen: Soft, nontender, non-distended with normal bowel sounds. MSK: Grossly normal ROM and motor function. No calf asymmetry or pain to palpation Neuro: Awake, alert. Grossly normal CN. No peripheral motor/sensory defects appreciated Procedures Vascath 04/22/17 Initiate hemodialysis 04/22/17 Catheterization and stent placement on 04/28/17 A/P Assessment and Plan 61 yo female with NSTEMI, acute COPD exacerbation, acute renal failure with chronic renal disease requiring hemodialysis. Cardiology and nephrology on board ; receiving dialysis. 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 Discharge Planning Pending clinical course. Patient currently scheduled for cardiac catheterization with stenting in order to decrease contrast load as she is in acute renal failure. Patient to receive dialysis per nephrology schedule. Problem List: (1) NSTEMI (non-ST elevated myocardial infarction) ICD Codes: I21.4 - Non-ST elevation (NSTEMI) myocardial infarction Status: Acute Plan: Impression: Troponin elevated at admission along with atypical chest pain. Non-specific ST-T wave changes on initial EKG's. Patient initially placed on Heparin. 04/24/2017- Patient s/p Catheterization per Dr. Cole which demonstrated NSTEMI, multivessel coronary disease, new cardiomyopathy with EF 45-50% Heparin drip discontinued due to hematoma and anemia - Cardiology consulted -CV surgery initially consulted but decision made for stenting rather than CABG for multivessel disease due to renal failure and concern for poor surgical outcome -S/P cath/stenting 04/28 (L circumflex, obtuse marginal) -Postpone stenting due to persistent anemia - Continue DAPT with aspirin and Brillinta -Continue Lipitor 10 mg qHS, Coreg 3.125 mg bid -Hold RISSA/ARB (2) Acute on chronic kidney failure ICD Codes: N17.9 - Acute kidney failure, unspecified; N18.9 - Chronic kidney disease, unspecified Status: Acute Plan: 05/04: Cr 3.55<- 4.84 (05/02); 400ml urine output. 3500ml removed with last dialysis Nephrology consulted -PRN Dialysis -last dialysis 05/01 with 3500ml removal -Monitor electrolytes -Continue Bumex -Continue to monitor urine output, electrolytes - Avoid nephrotoxic agents, contrast agents Impression: Has a history of diabetes with diabetic nephropathy. Has proteinuria and oliguria with acute decrease in renal function. Her baseline creatinine is about 2.8, now with doubling of creatinine. Also with hyperkalemia and metabolic acidosis. Etiology includes chronic kidney disease with acute exacerbation possibly from poor cardiac output with NSTEMI. Renal ultrasound showing no obstruction, has stone that is non-obstructing Complement negative MIGUE negative, SPEP, urine immunofixation normal Hepatitis profile negative (3) Anemia ICD Codes: D64.9 - Anemia, unspecified Status: Acute Plan: 05/05: Hgb 11.4 ( S/P 2 U pRBC 05/04) <- 6.9 (05/04) -Continue to monitor H/H and transfuse as necessary: -Heparin as needed for procedures -GI consulted -VANGIE, PPI, monitor HH and supportive care -Planned colonoscopy today -Vascular surgery consulted -No surgical intervention needed at this time; follow RLE pulse checks and serial Hcts -Cleared from a vascular standpoint 04/27 Impression: Anemia in association with recent catheterization, R groin hematoma , positive hemmocult on recent heparin treatment 04/26- CT abdomen and pelvis 04/26: Right inguinal and right lower quadrant abdominal wall hematoma measuring 8.8 cm. Subcutaneous inflammatory changes which extend into the mons pubis region. Bilateral flank edema. Nonacute findings include small left pleural effusion, severe atherosclerotic disease, and sigmoid diverticulosis. No pseudoaneurysm. 04/26: LE US- large groin hematoma; no evidence of pseudoaneurysm 04/29- Repeat CT abdomen and pelvis on 04/29: Unchanged from previous CT abdomen (4) COPD (chronic obstructive pulmonary disease) ICD Codes: J44.9 - Chronic obstructive pulmonary disease, unspecified Status: Chronic Plan: History of COPD with recent upper respiratory symptoms and acute exacerbation, recently diagnosed with pneumonia while on cruise ship and was started on azithromycin. - IV Solumedrol 60 mg q12hrs started 04/21 - DuoNebs q6hrs scheduled - Levaquin empirically, renally dosed, started 04/22 Q48H - O2 supplementation with target O2 90% (5) Hyperkalemia ICD Codes: E87.5 - Hyperkalemia; N18.9 - Chronic kidney disease, unspecified Status: Resolved Plan: Hyperkalemia up to 6.0 with acute renal failure. Resolved with hemodialysis. - Continue management per nephrology (6) Hyponatremia ICD Codes: E87.1 - Hypo-osmolality and hyponatremia Status: Resolved Plan: Hyponatremia with acute renal failure, asymptomatic, resolved at this time. - IV fluids per nephrology - Monitor electrolytes - Hemodialysis per nephrology (7) DM2 (diabetes mellitus, type 2) ICD Codes: E11.9 - Type 2 diabetes mellitus without complications Status: Chronic Plan: History of diabetes type II - Sliding scale insulin with glucose goal of 140-180 (8) HTN (hypertension) ICD Codes: I10 - HTN (hypertension) Status: Chronic Plan: Impression: Mild hypertension during hospitalization with SBP 140s-160; recent SBP increase to 180's-190's - Will increase carvedilol to 6.25mg BID (9) Hypothyroidism ICD Codes: E03.9 - Hypothyroidism, unspecified Status: Chronic Plan: TSH normal - Levothyroxine 50 mcg daily (10) Constipation ICD Codes: K59.00 - Constipation, unspecified Plan: Impression: Patient reports feelings of constipation; last BM 2 days prior. -Discussed with patient recommendation for Bisacodyl suppository if desired this evening; patient also has PRN oral bowel motility agents available (11) Secondary hyperparathyroidism (of renal origin) ICD Codes: N25.81 - Secondary hyperparathyroidism of renal origin Status: Acute Plan: Patient with secondary hyperparathyroidism with significantly elevated phosphate and low calcium. Intact PTH 364.5 1,25 OH Vit D 11 -Will plan to initiate supplementation - Dietary phosphate restriction to 900 mg/day -Consider PhosLo -Management per Nephrology (12) DVT Prophylaxis Status: Acute Plan: Heparin drip discontinued due to anemia/ suspected active bleeding (13) Nutrition, metabolism, and development symptoms ICD Codes: R63.8 - Other symptoms and signs concerning food and fluid intake Status: Acute Plan: Heart healthy diet IV fluids per nephrology Phosphate restriction 900 mg/day for hyperphosphatemia Hyponatremia, hyperkalemia initially Receiving dialysis per nephrology Acute renal failure with CKD, monitor renal function Protonix IV 40 mg daily Problem Qualifiers (1) Acute on chronic kidney failure: Qualified Codes: N17.9 - Acute kidney failure, unspecified; N18.9 - Chronic kidney disease, unspecified (2) Anemia: Qualified Codes: D64.9 - Anemia, unspecified (3) COPD (chronic obstructive pulmonary disease): (4) DM2 (diabetes mellitus, type 2): Qualified Codes: E11.8 - Type 2 diabetes mellitus with unspecified complications (5) HTN (hypertension): Qualified Codes: I10 - Essential (primary) hypertension (6) Hypothyroidism: Qualified Codes: E03.9 - Hypothyroidism, unspecified (7) Constipation: Qualified Codes: K59.00 - Constipation, unspecified Eric Stevenson MD, R3 May 05, 2017 12:10
--- NOTE | 2017-05-05 13:56 | PD.PROCEDR ---
GI Procedure REFERRING PHYSICIAN Dr. Flowers PROCEDURE PERFORMED Colonoscopy with biopsy INDICATION FOR PROCEDURE Anemia, guaiac-positive stools PROCEDURE: The procedure, risks and benefits were discussed with Ms. Alicia and informed consent was obtained. Anesthesia sedated her with Diprivan. She was placed in the left lateral decubitus position. Colonoscopy: The Pentax videoscope was introduced through the rectum and advanced to cecum where the ileocecal valve and appendiceal orifice were identified. Retroflexion was performed in the rectum. Colonic prep was fair to poor FINDINGS: Colonic withdrawal time greater than 6 minutes as the scope was slowly withdrawn colonic mucosa was carefully inspected the patient was noted to have 2 sessile polyps small to medium in size and one in the distal transverse and the other in the proximal descending colon both were excised using cold biopsy forceps the patient also was noted to have a small ulceration in the rectum on the anterior wall, this was biopsied this probably represents a solitary ulcer colonic examination was otherwise unremarkable the patient did have moderate diverticulosis of the descending and sigmoid region retroflexion in the rectum was not performed due to some stool in the rectum ESTIMATED BLOOD LOSS: None SPECIMENS REMOVED: Colonic Biopsies COMPLICATIONS: None IMPRESSION: Colon polyps Diverticulosis Rectal ulcer PLAN: Await biopsies Recommend stool softeners and laxatives High fiber diet Colonoscopy in 1 year Moi East MD May 05, 2017 13:56
[2017-05-05] MEDS: methylPREDNISolone SOD SUCC 40 MG/1 ML VIAL IV PUSH SCH ×2 (14:30→20:17)
[2017-05-05] MEDS: BUMETANIDE INJ 1 MG/4 ML VIAL IV PUSH SCH ×2 (14:31→17:19)
[2017-05-05] MEDS: CALCITRIOL 0.25 MCG CAP PO SCH (14:31)
[2017-05-05] MEDS: CYANOCOBALAMIN 1,000 MCG TAB PO SCH (14:31)
[2017-05-05] MEDS: ASPIRIN 81 MG CHEW TAB CHEW SCH (14:32)
[2017-05-05] MEDS: PANTOPRAZOLE SOD 40 MG DELAYED RELEASE TAB PO SCH (14:32)
[2017-05-05] MEDS: LEVOFLOXACIN 500 MG PREMIX INJ 100 ML IV SCH (14:44)
[2017-05-05] MEDS: POLYETHYLENE GLYCOL 17 GM PKG PO SCH (15:00)
[2017-05-05 17:57] LABS: BICARBONATE 31.1 MEQ/L (21.0-32.0); POTASSIUM 4.3 MEQ/L (3.5-5.1)
--- NOTE | 2017-05-05 18:26 | PD.CARD.PN ---
Subjective Subjective Remarks No chest pain/SOB, sitting up in the bed feeling well Objective Medications Current Medications Medications (Trade) Dose Ordered Sig/Des Route Start Time Stop Time Status Last Admin (Duoneb Neb) 1 ampule Q4HR NEB PRN INH 04/21/17 06:45 Miscellaneous Information 1 Q361D XX 04/21/17 06:45 (Chlorhexidine 2% Cloth) Taper DAILY@04 TOP 04/22/17 04:00 04/18/18 03:59 04/27/17 00:35 (Chlorhexidine 2% Cloth) 3 pack UNSCH PRN TOP 04/21/17 06:45 (Malaika-Colace) 1 tab BID PO 04/21/17 09:00 05/04/17 09:15 (Milk Of Magnesia Liq) 30 ml Q12H PRN PO 04/21/17 06:45 (Senokot) 17.2 mg Q12H PRN PO 04/21/17 06:45 05/02/17 12:22 (Dulcolax Supp) 10 mg DAILY PRN RECTAL 04/21/17 06:45 05/03/17 14:10 (Lactulose Liq) 30 ml DAILY PRN PO 04/21/17 06:45 05/03/17 17:30 (Aspirin Chew) 81 mg DAILY CHEW 04/22/17 09:00 05/05/17 14:32 (Coreg) 3.125 mg Q12HR PO 04/21/17 09:00 Future Hold 05/04/17 09:14 (Lipitor) 10 mg HS PO 04/21/17 21:00 05/04/17 20:51 (Vitamin B12) 500 mcg DAILY PO 04/21/17 09:00 05/05/17 14:31 (Synthroid) 50 mcg DAILY@0600 PO 04/21/17 07:00 05/05/17 05:20 Levofloxacin/ Dextrose 100 ml @ 100 mls/hr Q48H IV 04/21/17 12:00 05/05/17 14:44 (Restoril) 15 mg HS PRN PO 04/21/17 20:45 05/04/17 23:51 Sodium Chloride 1,000 ml @ 0 mls/hr Q0M PRN OTHER 04/22/17 14:04 (Heparin Inj) 8,000 units UNSCH PRN IV FLUSH 04/22/17 14:15 05/03/17 11:17 Sodium Chloride 1,000 ml @ 200 mls/hr Q5H PRN IV 04/22/17 14:04 Sodium Chloride 1,000 ml @ 0 mls/hr Q0M PRN OTHER 04/22/17 14:04 (Mannitol Inj) 12.5 gm UNSCH PRN IV 04/22/17 14:15 Albumin Human 100 ml @ 60 mls/hr UNSCH PRN IV 04/22/17 14:15 05/03/17 11:17 (NS Flush) 5 ml UNSCH PRN IV FLUSH 04/22/17 14:15 (Heparin Inj) UNSCH PRN .XX 04/22/17 14:15 05/05/17 11:09 (Gentamicin (Dialysis) Inj) 20 mg UNSCH PRN OTHER 04/22/17 14:15 05/05/17 11:09 (Zofran Inj) 4 mg UNSCH PRN IV PUSH 04/22/17 14:15 (Tylenol) 650 mg UNSCH PRN PO 04/22/17 14:15 04/25/17 12:21 (Benadryl) 25 mg UNSCH PRN PO 04/22/17 14:15 (Nitrostat Sl) 0.4 mg UNSCH PRN SL 04/22/17 14:15 (Catapres) 0.1 mg UNSCH PRN PO 04/22/17 14:15 04/27/17 22:31 (Gelfoam 12 Mm/7 Mm Top) 1 foam UNSCH PRN TOP 04/22/17 14:15 (Apresoline Inj) 10 mg Q30M PRN IV PUSH 04/23/17 13:15 05/04/17 23:51 (Phoslo) 2,001 mg TID PO 04/23/17 18:00 05/05/17 17:20 (Rocaltrol) 0.25 mcg DAILY PO 04/24/17 09:15 05/05/17 14:31 (Atropine Inj) 0.5 mg UNSCH PRN IV PUSH 04/24/17 10:00 (NS Flush) 2 ml BID IV FLUSH 04/24/17 21:00 05/05/17 09:00 (NS Flush) 2 ml UNSCH PRN IV FLUSH 04/24/17 15:45 (D50w (Vial) Inj) 50 ml UNSCH PRN IV PUSH 04/24/17 15:45 (Morphine Inj) 2 mg Q3H PRN IV PUSH 04/26/17 09:30 04/29/17 13:33 (Bumex Inj) 2 mg BID@09,18 IV PUSH 04/26/17 20:45 05/05/17 17:19 (Brilinta) 90 mg BID PO 04/29/17 09:00 05/05/17 09:00 (Percocet 5-325 Mg) 1 tab Q4H PRN PO 04/29/17 13:30 05/02/17 21:14 (Percocet 10-325 Mg) 1 tab Q4H PRN PO 04/29/17 13:30 05/05/17 16:14 (NovoLOG SUPPLEMENTAL SCALE) 1 ACHS SQ 04/30/17 21:00 05/05/17 17:16 (Levemir Inj) 5 units Q12HR SQ 04/30/17 21:00 05/04/17 20:52 (Glucagon Inj) 1 mg UNSCH PRN OTHER 04/30/17 18:15 (Protonix) 40 mg DAILY PO 05/01/17 12:30 05/05/17 14:32 (Reglan) 5 mg BIDAC PO 05/01/17 12:15 05/05/17 17:17 (SoluMEDROL INJ) 40 mg Q12HR IV PUSH 05/02/17 21:00 05/05/17 14:30 Iron Sucrose 100 mg/Sodium Chloride 105 ml @ 105 mls/hr DAILY IV 05/05/17 09:00 05/07/17 09:59 05/05/17 16:10 (Miralax) 17 gm DAILY PO 05/05/17 15:00 Vital Signs / I&O Vital Signs Date Time Temp Pulse Resp B/P (MAP) Pulse Ox O2 Delivery O2 Flow Rate FiO2 05/05/17 17:14 20 05/05/17 17:00 74 05/05/17 16:00 76 05/05/17 15:40 97.9 78 18 179/86 (117) 94 05/05/17 15:00 80 05/05/17 14:22 97.9 76 18 168/80 (109) 94 05/05/17 14:00 97.6 76 18 168/80 (109) 96 05/05/17 14:00 76 05/05/17 13:00 74 05/05/17 12:00 76 05/05/17 11:00 78 05/05/17 10:00 76 05/05/17 09:00 73 05/05/17 08:33 98.1 74 18 192/94 (126) 94 05/05/17 08:00 74 05/05/17 07:00 74 05/05/17 06:04 73 05/05/17 05:00 76 05/05/17 04:00 79 05/05/17 03:00 76 05/05/17 03:00 97.5 80 153/65 (94) 95 05/05/17 02:15 73 05/05/17 01:00 76 05/05/17 00:34 98.2 79 193/83 (119) 96 05/05/17 00:00 76 05/04/17 23:00 76 05/04/17 22:00 76 05/04/17 21:00 78 05/04/17 20:00 97.8 81 121/84 (96) 97 05/04/17 20:00 80 05/04/17 19:00 92 I/O 05/04/17 05/04/17 05/04/17 05/05/17 05/05/17 05/05/17 07:00 15:00 23:00 07:00 15:00 23:00 Intake Total 240 ml 400 ml 4000 ml 420 ml 705 ml 1220 ml Output Total 2200 ml Balance 240 ml 400 ml 4000 ml 420 ml 705 ml -980 ml Intake Oral 240 ml 3600 ml 420 ml 875 ml IV Total 105 ml 345 ml Packed Cells 400 ml 400 ml Other 600 ml Output Urine Total 200 ml Hemodialysis 2000 ml # Voids 2 1 4 # Bowel Movements 3 1 4 0 Physical Exam GENERAL: NAD, AAOx3 SKIN: Warm and dry. HEAD: Atraumatic. Normocephalic. EYES: Pupils equal and round. No scleral icterus. No injection or drainage. ENT: No nasal bleeding or discharge. Mucous membranes pink and moist. NECK: Trachea midline. No JVD. CARDIOVASCULAR: Regular rate and rhythm. RESPIRATORY: No accessory muscle use. Clear to auscultation. Breath sounds equal bilaterally. GASTROINTESTINAL: Abdomen soft, non-tender, nondistended. Hepatic and splenic margins not palpable. MUSCULOSKELETAL: Extremities without clubbing, cyanosis, or edema. No obvious deformities. Right abdominal wall with large ecchymosis layering out, left femoral no hematoma/bruit NEUROLOGICAL: Awake and alert. No obvious cranial nerve deficits. Motor grossly within normal limits. Five out of 5 muscle strength in the arms and legs. Normal speech. PSYCHIATRIC: Appropriate mood and affect; insight and judgment normal. Laboratory Laboratory Tests Test 05/04/17 22:31 05/05/17 07:59 05/05/17 16:34 White Blood Count 23.2 TH/MM3 17.7 TH/MM3 Red Blood Count 3.85 MIL/MM3 3.83 MIL/MM3 Hemoglobin 11.4 GM/DL 11.4 GM/DL Hematocrit 32.6 % 32.8 % Mean Corpuscular Volume 84.7 FL 85.6 FL Mean Corpuscular Hemoglobin 29.5 PG 29.7 PG Mean Corpuscular Hemoglobin Concent 34.8 % 34.7 % Red Cell Distribution Width 20.3 % 19.7 % Platelet Count 120 TH/MM3 128 TH/MM3 Mean Platelet Volume 8.9 FL 9.0 FL Neutrophils (%) (Auto) 90.8 % Lymphocytes (%) (Auto) 2.9 % Monocytes (%) (Auto) 6.2 % Eosinophils (%) (Auto) 0.0 % Basophils (%) (Auto) 0.1 % Neutrophils # (Auto) 16.1 TH/MM3 Lymphocytes # (Auto) 0.5 TH/MM3 Monocytes # (Auto) 1.1 TH/MM3 Eosinophils # (Auto) 0.0 TH/MM3 Basophils # (Auto) 0.0 TH/MM3 CBC Comment DIFF FINAL Differential Comment Activated Partial Thromboplast Time 23.8 SEC Blood Urea Nitrogen 45 MG/DL Creatinine 2.53 MG/DL Random Glucose 153 MG/DL Calcium Level 7.9 MG/DL Sodium Level 137 MEQ/L Potassium Level 4.3 MEQ/L Chloride Level 99 MEQ/L Carbon Dioxide Level 31.1 MEQ/L Anion Gap 7 MEQ/L Estimat Glomerular Filtration Rate 19 ML/MIN Assessment and Plan Problem List: (1) NSTEMI (non-ST elevated myocardial infarction) ICD Codes: I21.4 - Non-ST elevation (NSTEMI) myocardial infarction Status: Acute (2) Acute on chronic kidney failure ICD Codes: N17.9 - Acute kidney failure, unspecified; N18.9 - Chronic kidney disease, unspecified Status: Acute (3) HTN (hypertension) ICD Codes: I10 - HTN (hypertension) Status: Chronic (4) HLD (hyperlipidemia) ICD Codes: E78.5 - HLD (hyperlipidemia) Status: Chronic (5) Anemia ICD Codes: D64.9 - Anemia, unspecified Status: Acute Assessment and Plan 1) NSTEMI/CAD Multivessel CAD ASA/BB/Statin/Brilinta Turned down for CABG s/p PCI of LCX with DESx2 (mid 2.5x22, distal 2.25x15 overlapped), PCI OM1 with ROMAN (2.25x18) Will plan for medical management of LAD as had multiple episodes of drop in Hgb 2) LEEANN on CKD HD started Still making urine with increased output Attempt to decrease nephrotoxin medications (contrast) if possible, not sure if chronic yet 3) Anemia Hgb stable today Drop in Hgb may be partially due to fluid overload inbetween HD sessions Continue to follow for now If continual drop, consider repeat imaging of hematoma? Although difficult to compare as hematoma now layering out across the abdomen Problem Qualifiers (1) Acute on chronic kidney failure: Qualified Codes: N17.9 - Acute kidney failure, unspecified; N18.9 - Chronic kidney disease, unspecified (2) HTN (hypertension): Qualified Codes: I10 - Essential (primary) hypertension (3) HLD (hyperlipidemia): Qualified Codes: E78.5 - Hyperlipidemia, unspecified (4) Anemia: Qualified Codes: D64.9 - Anemia, unspecified Hemanth Cole DO May 05, 2017 18:26
[2017-05-05] MEDS: ATORVASTATIN 10 MG TAB PO SCH (20:17)
[2017-05-06] VITALS (28 sets, daily range): BP systolic 152–172; BP diastolic 73–81; PULSE 72–89; RESP 16–18; TEMP 97.6–98.6; O2SAT 94–98
[2017-05-06] MEDS: TEMAZEPAM 15 MG CAP PO PRN (00:20)
[2017-05-06] MEDS: CHLORHEXIDINE GLUCONATE 2 % 1 PACK (2 CLOTHS) TOP SCH ×2 (00:21→22:55)
[2017-05-06 05:00] LABS: HEMATOCRIT 32.5 % (35.0-46.0); MEAN CELL VOLUME 87.1 FL (80.0-100.0); MEAN CORPUSCULAR HEMOGLOBIN 29.6 PG (27.0-34.0); PLATELET COUNT 130 TH/MM3 (150-450); RED BLOOD COUNT 3.73 MIL/MM3 (4.00-5.30); RED CELL DISTRIBUTION WIDTH 18.8 % (11.6-17.2); REVIEW FLAG FINAL; WHITE BLOOD COUNT 19.5 TH/MM3 (4.0-11.0)
[2017-05-06 05:06] LABS: APTT (PATIENT) 27.1 SEC (24.3-30.1)
[2017-05-06] MEDS: METOCLOPRAMIDE HCL 10 MG TAB PO SCH ×2 (05:21→16:48)
[2017-05-06] MEDS: LEVOTHYROXINE SODIUM 50 MCG TAB PO SCH (05:21)
[2017-05-06] MEDS: oxyCODONE/ACETAMINOPHEN 10 MG/325 MG TAB PO PRN ×3 (05:21→18:39)
[2017-05-06] MEDS: INSULIN ASPART SUPPLEMENTAL SCALE SQ SCH ×3 (08:00→20:54)
[2017-05-06] MEDS: POLYETHYLENE GLYCOL 17 GM PKG PO SCH (08:01)
[2017-05-06] MEDS: CALCITRIOL 0.25 MCG CAP PO SCH (08:04)
[2017-05-06] MEDS: CYANOCOBALAMIN 1,000 MCG TAB PO SCH (08:04)
[2017-05-06] MEDS: DOCUSATE SODIUM 50 MG/SENNA 8.6 MG TAB PO SCH ×2 (08:04→20:51)
[2017-05-06] MEDS: CALCIUM ACETATE 667 MG CAP PO SCH ×3 (08:05→18:31)
[2017-05-06] MEDS: ASPIRIN 81 MG CHEW TAB CHEW SCH (08:05)
[2017-05-06] MEDS: PANTOPRAZOLE SOD 40 MG DELAYED RELEASE TAB PO SCH (08:05)
[2017-05-06] MEDS: TICAGRELOR 90 MG TAB PO SCH ×2 (08:05→20:51)
[2017-05-06] MEDS: methylPREDNISolone SOD SUCC 40 MG/1 ML VIAL IV PUSH SCH ×2 (08:06→20:51)
[2017-05-06] MEDS: IRON SUCROSE INJ 100 MG in SODIUM CHLORIDE 0.9% INJ 100 ML IV SCH (08:09)
[2017-05-06] MEDS: INSULIN DETEMIR 100 UNITS/ML VIAL SQ SCH ×2 (08:14→20:54)
--- NOTE | 2017-05-06 09:28 | PD.CARD.PN ---
Subjective Subjective Remarks Pt feels well, no complaints. Objective Medications Administered Medications Medications (Trade) Dose Ordered Sig/Des Route PRN Reason Start Time Stop Time Status Last Admin Dose Admin Chlorhexidine Gluconate (Chlorhexidine 2% Cloth) Taper DAILY@04 TOP 04/22/17 04:00 04/18/18 03:59 04/27/17 00:35 Senna/Docusate Sodium (Malaika-Colace) 1 tab BID PO 04/21/17 09:00 05/06/17 08:04 Sennosides (Senokot) 17.2 mg Q12H PRN PO Moderate constipation 04/21/17 06:45 05/02/17 12:22 Bisacodyl (Dulcolax Supp) 10 mg DAILY PRN RECTAL SEVERE CONSITIPATION 04/21/17 06:45 05/03/17 14:10 Lactulose (Lactulose Liq) 30 ml DAILY PRN PO SEVERE CONSITIPATION 04/21/17 06:45 05/03/17 17:30 Aspirin (Aspirin Chew) 81 mg DAILY CHEW 04/22/17 09:00 05/06/17 08:05 Carvedilol (Coreg) 3.125 mg Q12HR PO 04/21/17 09:00 Future Hold 05/04/17 09:14 Atorvastatin Calcium (Lipitor) 10 mg HS PO 04/21/17 21:00 05/05/17 20:17 Cyanocobalamin (Vitamin B12) 500 mcg DAILY PO 04/21/17 09:00 05/06/17 08:04 Levothyroxine Sodium (Synthroid) 50 mcg DAILY@0600 PO 04/21/17 07:00 05/06/17 05:21 Levofloxacin/ Dextrose 100 ml @ 100 mls/hr Q48H IV 04/21/17 12:00 05/05/17 14:44 Temazepam (Restoril) 15 mg HS PRN PO Insomnia 04/21/17 20:45 05/06/17 00:20 Heparin Sodium (Porcine) (Heparin Inj) 8,000 units UNSCH PRN IV FLUSH WITH DIALYSIS 04/22/17 14:15 05/03/17 11:17 Albumin Human 100 ml @ 60 mls/hr UNSCH PRN IV WITH DIALYSIS 04/22/17 14:15 05/03/17 11:17 Heparin Sodium (Porcine) (Heparin Inj) UNSCH PRN .XX WITH DIALYSIS 04/22/17 14:15 05/05/17 11:09 Gentamicin Sulfate (Gentamicin (Dialysis) Inj) 20 mg UNSCH PRN OTHER WITH DIALYSIS 04/22/17 14:15 05/05/17 11:09 Acetaminophen (Tylenol) 650 mg UNSCH PRN PO for headach, pain, temp > 101F 04/22/17 14:15 04/25/17 12:21 Clonidine (Catapres) 0.1 mg UNSCH PRN PO for BP > 180/100 X 2 readings 04/22/17 14:15 04/27/17 22:31 Hydralazine HCl (Apresoline Inj) 10 mg Q30M PRN IV PUSH SBP>180, DBP>100, HR>65 04/23/17 13:15 05/04/17 23:51 Calcium Acetate (Phoslo) 2,001 mg TID PO 04/23/17 18:00 05/06/17 08:05 Calcitriol (Rocaltrol) 0.25 mcg DAILY PO 04/24/17 09:15 05/06/17 08:04 Sodium Chloride (NS Flush) 2 ml BID IV FLUSH 04/24/17 21:00 05/05/17 20:17 Morphine Sulfate (Morphine Inj) 2 mg Q3H PRN IV PUSH BREAKTHROUGH PAIN 04/26/17 09:30 04/29/17 13:33 Bumetanide (Bumex Inj) 2 mg BID@,18 IV PUSH 04/26/17 20:45 05/05/17 17:19 Ticagrelor (Brilinta) 90 mg BID PO 04/29/17 09:00 05/06/17 08:05 Oxycodone/ Acetaminophen (Percocet 5-325 Mg) 1 tab Q4H PRN PO PAIN SCALE 1 TO 5 04/29/17 13:30 05/02/17 21:14 Oxycodone/ Acetaminophen (Percocet 10-325 Mg) 1 tab Q4H PRN PO PAIN 6-10 04/29/17 13:30 05/06/17 05:21 Insulin Aspart (NovoLOG SUPPLEMENTAL SCALE) 1 ACHS SQ 04/30/17 21:00 05/05/17 20:16 Insulin Detemir (Levemir Inj) 5 units Q12HR SQ 04/30/17 21:00 05/06/17 08:14 Pantoprazole Sodium (Protonix) 40 mg DAILY PO 05/01/17 12:30 05/06/17 08:05 Metoclopramide HCl (Reglan) 5 mg BIDAC PO 05/01/17 12:15 05/06/17 05:21 Methylprednisolone Sodium Succinate (SoluMEDROL INJ) 40 mg Q12HR IV PUSH 05/02/17 21:00 05/06/17 08:06 Iron Sucrose 100 mg/Sodium Chloride 105 ml @ 105 mls/hr DAILY IV 05/05/17 09:00 05/07/17 09:59 05/06/17 08:09 Polyethylene Glycol (Miralax) 17 gm DAILY PO 05/05/17 15:00 05/06/17 08:01 Current Medications Medications (Trade) Dose Ordered Sig/Des Route Start Time Stop Time Status Last Admin (Duoneb Neb) 1 ampule Q4HR NEB PRN INH 04/21/17 06:45 Miscellaneous Information 1 Q361D XX 04/21/17 06:45 (Chlorhexidine 2% Cloth) Taper DAILY@04 TOP 04/22/17 04:00 04/18/18 03:59 04/27/17 00:35 (Chlorhexidine 2% Cloth) 3 pack UNSCH PRN TOP 04/21/17 06:45 (Malaika-Colace) 1 tab BID PO 04/21/17 09:00 05/06/17 08:04 (Milk Of Magnesia Liq) 30 ml Q12H PRN PO 04/21/17 06:45 (Senokot) 17.2 mg Q12H PRN PO 04/21/17 06:45 05/02/17 12:22 (Dulcolax Supp) 10 mg DAILY PRN RECTAL 04/21/17 06:45 05/03/17 14:10 (Lactulose Liq) 30 ml DAILY PRN PO 04/21/17 06:45 05/03/17 17:30 (Aspirin Chew) 81 mg DAILY CHEW 04/22/17 09:00 05/06/17 08:05 (Coreg) 3.125 mg Q12HR PO 04/21/17 09:00 Future Hold 05/04/17 09:14 (Lipitor) 10 mg HS PO 04/21/17 21:00 05/05/17 20:17 (Vitamin B12) 500 mcg DAILY PO 04/21/17 09:00 05/06/17 08:04 (Synthroid) 50 mcg DAILY@0600 PO 04/21/17 07:00 05/06/17 05:21 Levofloxacin/ Dextrose 100 ml @ 100 mls/hr Q48H IV 04/21/17 12:00 05/05/17 14:44 (Restoril) 15 mg HS PRN PO 04/21/17 20:45 05/06/17 00:20 Sodium Chloride 1,000 ml @ 0 mls/hr Q0M PRN OTHER 04/22/17 14:04 (Heparin Inj) 8,000 units UNSCH PRN IV FLUSH 04/22/17 14:15 05/03/17 11:17 Sodium Chloride 1,000 ml @ 200 mls/hr Q5H PRN IV 04/22/17 14:04 Sodium Chloride 1,000 ml @ 0 mls/hr Q0M PRN OTHER 04/22/17 14:04 (Mannitol Inj) 12.5 gm UNSCH PRN IV 04/22/17 14:15 Albumin Human 100 ml @ 60 mls/hr UNSCH PRN IV 04/22/17 14:15 05/03/17 11:17 (NS Flush) 5 ml UNSCH PRN IV FLUSH 04/22/17 14:15 (Heparin Inj) UNSCH PRN .XX 04/22/17 14:15 05/05/17 11:09 (Gentamicin (Dialysis) Inj) 20 mg UNSCH PRN OTHER 04/22/17 14:15 05/05/17 11:09 (Zofran Inj) 4 mg UNSCH PRN IV PUSH 04/22/17 14:15 (Tylenol) 650 mg UNSCH PRN PO 04/22/17 14:15 04/25/17 12:21 (Benadryl) 25 mg UNSCH PRN PO 04/22/17 14:15 (Nitrostat Sl) 0.4 mg UNSCH PRN SL 04/22/17 14:15 (Catapres) 0.1 mg UNSCH PRN PO 04/22/17 14:15 04/27/17 22:31 (Gelfoam 12 Mm/7 Mm Top) 1 foam UNSCH PRN TOP 04/22/17 14:15 (Apresoline Inj) 10 mg Q30M PRN IV PUSH 04/23/17 13:15 05/04/17 23:51 (Phoslo) 2,001 mg TID PO 04/23/17 18:00 05/06/17 08:05 (Rocaltrol) 0.25 mcg DAILY PO 04/24/17 09:15 05/06/17 08:04 (Atropine Inj) 0.5 mg UNSCH PRN IV PUSH 04/24/17 10:00 (NS Flush) 2 ml BID IV FLUSH 04/24/17 21:00 05/05/17 20:17 (NS Flush) 2 ml UNSCH PRN IV FLUSH 04/24/17 15:45 (D50w (Vial) Inj) 50 ml UNSCH PRN IV PUSH 04/24/17 15:45 (Morphine Inj) 2 mg Q3H PRN IV PUSH 04/26/17 09:30 04/29/17 13:33 (Bumex Inj) 2 mg BID@ IV PUSH 04/26/17 20:45 05/05/17 17:19 (Brilinta) 90 mg BID PO 04/29/17 09:00 05/06/17 08:05 (Percocet 5-325 Mg) 1 tab Q4H PRN PO 04/29/17 13:30 05/02/17 21:14 (Percocet 10-325 Mg) 1 tab Q4H PRN PO 04/29/17 13:30 05/06/17 05:21 (NovoLOG SUPPLEMENTAL SCALE) 1 ACHS SQ 04/30/17 21:00 05/05/17 20:16 (Levemir Inj) 5 units Q12HR SQ 04/30/17 21:00 05/06/17 08:14 (Glucagon Inj) 1 mg UNSCH PRN OTHER 04/30/17 18:15 (Protonix) 40 mg DAILY PO 05/01/17 12:30 05/06/17 08:05 (Reglan) 5 mg BIDAC PO 05/01/17 12:15 05/06/17 05:21 (SoluMEDROL INJ) 40 mg Q12HR IV PUSH 05/02/17 21:00 05/06/17 08:06 Iron Sucrose 100 mg/Sodium Chloride 105 ml @ 105 mls/hr DAILY IV 05/05/17 09:00 05/07/17 09:59 05/06/17 08:09 (Miralax) 17 gm DAILY PO 05/05/17 15:00 05/06/17 08:01 Vital Signs / I&O Vital Signs Date Time Temp Pulse Resp B/P (MAP) Pulse Ox O2 Delivery O2 Flow Rate FiO2 05/06/17 06:15 80 05/06/17 05:00 76 05/06/17 04:20 78 05/06/17 03:31 88 05/06/17 03:20 97.6 74 166/75 (105) 94 05/06/17 02:20 80 05/06/17 01:00 82 05/06/17 00:34 97.9 89 152/78 (102) 98 05/06/17 00:00 82 05/05/17 23:00 79 05/05/17 22:00 82 05/05/17 21:00 84 05/05/17 20:00 92 142/63 (89) 94 05/05/17 20:00 90 05/05/17 19:00 90 05/05/17 18:39 76 05/05/17 17:14 20 05/05/17 17:00 74 05/05/17 16:00 76 05/05/17 15:40 97.9 78 18 179/86 (117) 94 05/05/17 15:00 80 05/05/17 14:22 97.9 76 18 168/80 (109) 94 05/05/17 14:00 97.6 76 18 168/80 (109) 96 05/05/17 14:00 76 05/05/17 13:00 74 05/05/17 12:00 76 05/05/17 11:00 78 05/05/17 10:00 76 I/O 05/05/17 05/05/17 05/05/17 05/06/17 05/06/17 05/06/17 07:00 15:00 23:00 07:00 15:00 23:00 Intake Total 420 ml 705 ml 1220 ml 360 ml Output Total 2200 ml 420 ml Balance 420 ml 705 ml -980 ml -60 ml Intake Oral 420 ml 875 ml 360 ml IV Total 105 ml 345 ml Other 600 ml Output Urine Total 200 ml 420 ml Hemodialysis 2000 ml # Voids 4 # Bowel Movements 4 0 Physical Exam GENERAL: This is a well-nourished, well-developed patient, in no apparent distress. CARDIOVASCULAR: Regular rate and rhythm without murmurs, gallops, or rubs. RESPIRATORY: Clear to auscultation. Breath sounds equal bilaterally. No wheezes , rales, or rhonchi. GASTROINTESTINAL: Abdomen soft, non-tender, nondistended. Normal active bowel sounds MUSCULOSKELETAL: Extremities without clubbing, cyanosis, or edema. NEURO: Alert & Oriented x4 to person, place, time, situation. Moves all ext x4 Laboratory Laboratory Tests Test 05/05/17 16:34 05/06/17 04:17 Blood Urea Nitrogen 45 MG/DL Creatinine 2.53 MG/DL Random Glucose 153 MG/DL Calcium Level 7.9 MG/DL Sodium Level 137 MEQ/L Potassium Level 4.3 MEQ/L Chloride Level 99 MEQ/L Carbon Dioxide Level 31.1 MEQ/L Anion Gap 7 MEQ/L Estimat Glomerular Filtration Rate 19 ML/MIN White Blood Count 19.5 TH/MM3 Red Blood Count 3.73 MIL/MM3 Hemoglobin 11.0 GM/DL Hematocrit 32.5 % Mean Corpuscular Volume 87.1 FL Mean Corpuscular Hemoglobin 29.6 PG Mean Corpuscular Hemoglobin Concent 34.0 % Red Cell Distribution Width 18.8 % Platelet Count 130 TH/MM3 Mean Platelet Volume 9.1 FL Activated Partial Thromboplast Time 27.1 SEC Imaging Last Impressions Carotid Artery Ultrasound 05/02/17 0000 Signed Impressions: Service Date/Time: Tuesday, May 02, 2017 12:26 - CONCLUSION: 1. Moderate calcified plaque in the left carotid bulb and proximal internal carotid artery with estimated 50-69%% stenosis based on velocity measurements. 2. The right carotid system is not evaluated since it was obscured by a central line. Keegan Santos MD Abdomen/Pelvis CT 04/29/17 0000 Signed Impressions: Service Date/Time: Saturday, April 29, 2017 10:38 - CONCLUSION: 1. Stable large right groin hematoma. 2. Vicarious excretion of contrast by the gallbladder and persistent contrast opacification of the kidneys characteristic of renal insufficiency. 3. Colonic diverticulosis without evidence of active inflammatory changes. 4. No evidence of acute process in the abdomen or pelvis. Reuben F. Bruno, MD Catheter Placement X-Ray 04/28/17 0000 Signed Impressions: Service Date/Time: Friday, April 28, 2017 16:14 - CONCLUSION: Uncomplicated venous catheter change as above. Stoney Morrow MD Lower Extremity Ultrasound 04/26/17 0000 Signed Impressions: Service Date/Time: Wednesday, April 26, 2017 14:24 - CONCLUSION: Large groin hematoma. No evidence of pseudoaneurysm Keegan Cedeno MD Chest X-Ray 04/22/17 0600 Signed Impressions: Service Date/Time: Saturday, April 22, 2017 02:19 - CONCLUSION: No acute cardiopulmonary disease identified. Trevor Townsend MD Renal Ultrasound 04/21/17 0000 Signed Impressions: Service Date/Time: Friday, April 21, 2017 17:11 - CONCLUSION: Stone in the lateral left kidney. No evidence of hydronephrosis or solid mass. No evidence of obstruction. Kirill Linder MD Assessment and Plan Problem List: (1) NSTEMI (non-ST elevated myocardial infarction) ICD Codes: I21.4 - Non-ST elevation (NSTEMI) myocardial infarction Status: Acute Plan: 61 y/o F s/p PCI. Hospitalization complicated with significant right groin hematoma and renal failure requiring HD and PRBCs. Right groin unchanged and left groin nontender, no hematoma. H&H stable this AM. (2) Acute on chronic kidney failure ICD Codes: N17.9 - Acute kidney failure, unspecified; N18.9 - Chronic kidney disease, unspecified Status: Acute Plan: Numbers improved today (3) HTN (hypertension) ICD Codes: I10 - HTN (hypertension) Status: Chronic (4) HLD (hyperlipidemia) ICD Codes: E78.5 - HLD (hyperlipidemia) Status: Chronic (5) Anemia ICD Codes: D64.9 - Anemia, unspecified Status: Acute Plan: stable this am (6) Tobacco abuse counseling ICD Codes: Z71.6 - Tobacco abuse counseling Plan: counseled at length Assessment and Plan Doing well today, she will be more aggressive w/ PT Problem Qualifiers (1) Acute on chronic kidney failure: Qualified Codes: N17.9 - Acute kidney failure, unspecified; N18.9 - Chronic kidney disease, unspecified (2) HTN (hypertension): Qualified Codes: I10 - Essential (primary) hypertension (3) HLD (hyperlipidemia): Qualified Codes: E78.5 - Hyperlipidemia, unspecified (4) Anemia: Qualified Codes: D64.9 - Anemia, unspecified Balaji Pérez MD May 06, 2017 09:28
[2017-05-06] MEDS: BUMETANIDE INJ 1 MG/4 ML VIAL IV PUSH SCH ×2 (10:00→18:30)
[2017-05-06] MEDS: SODIUM CHLORIDE 0.9% FLUSH 10 ML FLUSH IV FLUSH SCH ×2 (10:00→20:50)
--- NOTE | 2017-05-06 12:20 | HHI.NPPN ---
Subjective General Problems: Anemia, Edema Renal Failure: Chronic, Acute, Stage IV Additional Remarks Feels well today, no acute complaints. Review of Systems General Constitutional: Fatigue Respiratory Lungs: SOB Cardiovascular Cardiac: Edema, HAIR Objective Data Data Vital Signs Date Time Temp Pulse Resp B/P (MAP) Pulse Ox O2 Delivery O2 Flow Rate FiO2 05/06/17 06:15 80 05/06/17 05:00 76 05/06/17 04:20 78 05/06/17 03:31 88 05/06/17 03:20 97.6 74 166/75 (105) 94 05/06/17 02:20 80 05/06/17 01:00 82 05/06/17 00:34 97.9 89 152/78 (102) 98 05/06/17 00:00 82 05/05/17 23:00 79 05/05/17 22:00 82 05/05/17 21:00 84 05/05/17 20:00 92 142/63 (89) 94 05/05/17 20:00 90 05/05/17 19:00 90 05/05/17 18:39 76 05/05/17 17:14 20 05/05/17 17:00 74 05/05/17 16:00 76 05/05/17 15:40 97.9 78 18 179/86 (117) 94 05/05/17 15:00 80 05/05/17 14:22 97.9 76 18 168/80 (109) 94 05/05/17 14:00 97.6 76 18 168/80 (109) 96 05/05/17 14:00 76 05/05/17 13:00 74 -: 05/06/17 0417 05/05/17 1634 Tubes & Lines: Vas-Cath Physical Exam General Appearance: Well Developed, Well Nourished, No Acute Distress, Comfortable Eyes Eye Exam: Pupils Equal, Pupils Reactive Throat Throat Exam: Oral Mucosa [place] & Moist Neck Neck Exam: Neck Supple Pulmonary Resp Exam: No Distress, Crackles, Rhonchi, Decreased Bases, Diminished Breath Sounds Cardiology CV Exam: Regular, Normal Sinus Rhythm, Good Perfusion Gastrointestinal/Abdomen GI Exam: Soft, Non-Tender, Bowel Sounds Present Genitourinary Exam: Clear Urine Musculoskeletal MS Exam: Joints Intact, Normal Tone, Good Strength Integumentary Skin Exam: Clear, Warm, Dry, Intact Extremeties Extremities Exam: Pedal Pulses Palpable, Trace Edema, Pitting Edema Neurologic Neuro Exam: Alert, Awake, Oriented, Speech Clear, Moving All Extremities Psychiatric Psych Exam: Appropriate Responses Assessment/Plan Discussed Condition With: Patient, Daughter Assessment Summary: LEEANN/Acute Renal Failure, [place] Hyperparathyroid, Fluid/ Volume Overload, Proteinuria, Hypertension, Diabetes Mellitus, CKD Stage IV Electrolyte Assessment: Hypocalcemia Problem List: (1) Acute on chronic kidney failure ICD Codes: N17.9 - Acute kidney failure, unspecified; N18.9 - Chronic kidney disease, unspecified Status: Acute Plan: She has advanced renal disease, Creatinine 2.8 at baseline, CKD 4 Suspected underlying diabetic nephropathy, heavy proteinuria in the past She has required intermittent dialysis this admission both for fluid removal and post cardiac catheterization Was dialyzed Monday, Monday, and Monday this week. Volume status and electrolytes stable, patient notes feeling increased in UOP ( not quantified). Monitor electrolytes and renal function. It is possible that she has reached ESRD, but it remains to be determined. Will continue to monitor, potentially next HD on Monday (2) NSTEMI (non-ST elevated myocardial infarction) ICD Codes: I21.4 - Non-ST elevation (NSTEMI) myocardial infarction Status: Acute Plan: Cardiology is following Has had 2 catheterizations this admission Repeat Cath postponed due to anemia. Medical management recommended. 2D echo: LVH, EF 45-50% On Brilinta (3) DM2 (diabetes mellitus, type 2) ICD Codes: E11.9 - Type 2 diabetes mellitus without complications Status: Chronic Plan: Insulin as needed to maintain glucose of 140-180 mg/dL while hospitalized (4) Metabolic bone disease ICD Codes: E88.9 - Metabolic disorder, unspecified; M90.80 - Osteopathy in diseases classified elsewhere, unspecified site Plan: Continue Calcium acetate On calcitriol for secondary hyperparathyroidism (5) Metabolic acidosis ICD Codes: E87.2 - Acidosis Status: Acute Plan: Corrected Follow metabolic profile (6) COPD with acute exacerbation ICD Codes: J44.1 - Chronic obstructive pulmonary disease with (acute) exacerbation Plan: On nebulizers, oxygen She is also on Levaquin and solumedrol (7) Anemia ICD Codes: D64.9 - Anemia, unspecified Status: Acute Plan: she received 2 units over the weekend. Monitor Hb Repeat CT abd/pelvis confirmed hematoma Start venofer colonoscopy done. Hgb 11 today. (8) Hyperkalemia ICD Codes: E87.5 - Hyperkalemia; N18.9 - Chronic kidney disease, unspecified Status: Resolved Plan: Due to reduction in GFR and metabolic acidosis Improved with dialysis, monitor for recurrence Problem Qualifiers (1) Acute on chronic kidney failure: Qualified Codes: N17.9 - Acute kidney failure, unspecified; N18.9 - Chronic kidney disease, unspecified (2) DM2 (diabetes mellitus, type 2): Qualified Codes: E11.8 - Type 2 diabetes mellitus with unspecified complications (3) Anemia: Qualified Codes: D64.9 - Anemia, unspecified Ge Stinson MD May 06, 2017 12:20
--- NOTE | 2017-05-06 12:20 | HHI.GIFU ---
Subjective Remarks Pt resting in bed. tolerating diet. No blood in stool. Getting iron. (Liane Gill) Objective Vitals I&O Vital Signs Date Time Temp Pulse Resp B/P (MAP) Pulse Ox O2 Delivery O2 Flow Rate FiO2 05/06/17 06:15 80 05/06/17 05:00 76 05/06/17 04:20 78 05/06/17 03:31 88 05/06/17 03:20 97.6 74 166/75 (105) 94 05/06/17 02:20 80 05/06/17 01:00 82 05/06/17 00:34 97.9 89 152/78 (102) 98 05/06/17 00:00 82 05/05/17 23:00 79 05/05/17 22:00 82 05/05/17 21:00 84 05/05/17 20:00 92 142/63 (89) 94 05/05/17 20:00 90 05/05/17 19:00 90 05/05/17 18:39 76 05/05/17 17:14 20 05/05/17 17:00 74 05/05/17 16:00 76 05/05/17 15:40 97.9 78 18 179/86 (117) 94 05/05/17 15:00 80 05/05/17 14:22 97.9 76 18 168/80 (109) 94 05/05/17 14:00 97.6 76 18 168/80 (109) 96 05/05/17 14:00 76 05/05/17 13:00 74 I/O 05/05/17 05/05/17 05/05/17 05/06/17 05/06/17 05/06/17 07:00 15:00 23:00 07:00 15:00 23:00 Intake Total 420 ml 705 ml 1220 ml 360 ml Output Total 2200 ml 420 ml Balance 420 ml 705 ml -980 ml -60 ml Intake Oral 420 ml 875 ml 360 ml IV Total 105 ml 345 ml Other 600 ml Output Urine Total 200 ml 420 ml Hemodialysis 2000 ml # Voids 4 # Bowel Movements 4 0 Laboratory Laboratory Tests Test 05/05/17 16:34 05/06/17 04:17 Blood Urea Nitrogen 45 Creatinine 2.53 Random Glucose 153 Calcium Level 7.9 Sodium Level 137 Potassium Level 4.3 Chloride Level 99 Carbon Dioxide Level 31.1 Anion Gap 7 Estimat Glomerular Filtration Rate 19 White Blood Count 19.5 Red Blood Count 3.73 Hemoglobin 11.0 Hematocrit 32.5 Mean Corpuscular Volume 87.1 Mean Corpuscular Hemoglobin 29.6 Mean Corpuscular Hemoglobin Concent 34.0 Red Cell Distribution Width 18.8 Platelet Count 130 Mean Platelet Volume 9.1 Activated Partial Thromboplast Time 27.1 Date/Time Source Procedure Growth Status 04/29/17 09:30 Stool Stool Stool Occult Blood (CHUCK) - Final HEMOCCULT POSITIVE Complete 04/21/17 04:40 Nasal Aspirate Influenza Types A,B Antigen (CHUCK) - Final NEGATIVE FOR FLU A AND B ANTIGEN.... Complete 04/21/17 08:20 Urine Catheterized Urine Urine Culture - Final NO GROWTH IN 48 HOURS. Complete Imaging Last Impressions Carotid Artery Ultrasound 05/02/17 0000 Signed Impressions: Service Date/Time: Tuesday, May 02, 2017 12:26 - CONCLUSION: 1. Moderate calcified plaque in the left carotid bulb and proximal internal carotid artery with estimated 50-69%% stenosis based on velocity measurements. 2. The right carotid system is not evaluated since it was obscured by a central line. Keegan Santos MD Abdomen/Pelvis CT 04/29/17 0000 Signed Impressions: Service Date/Time: Saturday, April 29, 2017 10:38 - CONCLUSION: 1. Stable large right groin hematoma. 2. Vicarious excretion of contrast by the gallbladder and persistent contrast opacification of the kidneys characteristic of renal insufficiency. 3. Colonic diverticulosis without evidence of active inflammatory changes. 4. No evidence of acute process in the abdomen or pelvis. Reuben Carr MD Catheter Placement X-Ray 04/28/17 0000 Signed Impressions: Service Date/Time: Friday, April 28, 2017 16:14 - CONCLUSION: Uncomplicated venous catheter change as above. Stoney Morrow MD Lower Extremity Ultrasound 04/26/17 0000 Signed Impressions: Service Date/Time: Wednesday, April 26, 2017 14:24 - CONCLUSION: Large groin hematoma. No evidence of pseudoaneurysm Keegan Cedeno MD Chest X-Ray 04/22/17 0600 Signed Impressions: Service Date/Time: Saturday, April 22, 2017 02:19 - CONCLUSION: No acute cardiopulmonary disease identified. Trevor Townsend MD Renal Ultrasound 04/21/17 0000 Signed Impressions: Service Date/Time: Friday, April 21, 2017 17:11 - CONCLUSION: Stone in the lateral left kidney. No evidence of hydronephrosis or solid mass. No evidence of obstruction. Kirill Linder MD Physical Exam HEENT: Normocephalic; atraumatic; no jaundice. CHEST: Diminshed CARDIAC: RRR ABDOMEN: Soft, nondistended, nontender; no hepatosplenomegaly; bowel sounds are present in all four quadrants. EXTREMITIES: No clubbing, cyanosis, no edema SKIN: Ecchymosis lower abd quadrant PHYSICIAN GYNECOLOGIST: No focal deficits; alert and oriented times three. (Liane Gill [facility]) Assessment and Plan Plan ASSESSMENT: Anemia with drop in Hgb. Pt had significant drop in Hgb after the cardiac cath. CT Scan at that time noted right inguinal and right lower quadrant abdominal wall hematoma measuring up to 8.8cm with surrounding subcutaneous inflammatory changes which extend into the mons pubis region. She was given 2 units of PRBC and responded appropriately, but then dropped again on 04/29 to 6.3/19.1. She was given an additional 2 units of PRBC and her H/H is now 10.1/29.3. Of note, she was found to have extensive ecchymosis to her right flank/right lower abdomen/groin. Pt currently receiving blood transfusion after another drop in H/H to 6.9/ 20.6. CT scan abdomen and pelvis (04/29/17)---> Stable large right groin hematoma, vicarious excretion of contrast by the gallbladder and persistent contrast opacification of the kidneys characteristic of renal insufficiency, colonic diverticulosis without evidence of active inflammatory changes, no evidence of acute process in the abdomen or pelvis. Stool hemoccult (+). GI was consulted for further evaluation. EGD/Colonoscopy (04/21/15)--> gastritis antrum, normal duodenum, retroflexed views revealed a hiatal hernia, diverticulosis sigmoid, descending semisolid stool throughout the colon, no gross lesions seen, retroflexed views revealed medium internal hemorrhoids, external hemorrhoids, decreased sphincter tone. Pathology duodenal mucosa without significant histopathologic abnormality, mild chronic gastritis, negative for H. Pylori. It was recommended that she have a repeat colonoscopy in 3 months with consideration for a capsule endoscopy. S/P EGD (05/01/17)---> gastritis, large amount of food residue consistent with gastroparesis, but no evidence of any active GI bleed from the stomach or the esophagus. PPI. Due to another drop in H/H to 6.9/20.6 will plan for colonoscopy tomorrow to rule out GI bleeding as source for anemia. - Hemoccult (+). EGD as above. No obvious active GI bleeding. Will plan for colonoscopy tomorrow to rule out GI source of anemia. - Hematoma. Had drop in Hgb after cardiac cath, CT revealed right inguinal and right lower quadrant abdominal wall hematoma measuring up to 8.8cm with surrounding subcutaneous inflammatory changes which extend into the mons pubis region. Rpt. CT Scan with stable large right groin hematoma. Continue to monitor HH , transfuse as needed - NSTEMI/CAD. S/P left heart catheterization (04/24/17)----> multivessel coronary artery disease, new cardiomyopathy with EF of 45-50%. Cardiac thoracic surgery was consulted for evaluation for CABG and she was restarted on heparin, ASA/BB/statin. Heparin now on hold because of hematoma. Plan was for repeat cath today, procedure cancelled, will plan for repeat after colonoscopy - Acute on chronic kidney disease with electrolyte abnormalities. S/P vascath, HD. - COPD, HTN, DM, Hypothyroidism, Secondary hyperparathyroidism, per attending. PLAN: - Clear liquid diet - GoLytely prep today - NPO after MN - Obtain consents for colonoscopy - Cont PPI - Cont Reglan - Monitor HH - Transfuse as needed - EGD outpatient in 1-2 months - Further recommendations to follow based on results of above - Pt seen and examined by Dr. East and myself and this note is written on his behalf (Liane Gill) Physician Comments Patient seen and examined Continue with current supportive care Monitor labs Patient follow-up with GI post discharge We will sign off (Moi East MD) Liane Gill May 06, 2017 12:20 Moi East MD May 06, 2017 20:54
--- NOTE | 2017-05-06 14:16 | HHI.FPPN ---
Subjective Remarks Mrs. Alicia was afebrile with stable vital signs overnight. Per EMR, patient had 2L output via hemodialysis and 620mg urine output. Mrs. Alicia reports that she is feeling well overall; she has continued abdominal pain around her hematoma; this has not changed significantly. No chest pain or shortness of breath. Patient has continued to urinate several times overnight. Objective Vitals Vital Signs Date Time Temp Pulse Resp B/P (MAP) Pulse Ox O2 Delivery O2 Flow Rate FiO2 05/06/17 06:15 80 05/06/17 05:00 76 05/06/17 04:20 78 05/06/17 03:31 88 05/06/17 03:20 97.6 74 166/75 (105) 94 05/06/17 02:20 80 05/06/17 01:00 82 05/06/17 00:34 97.9 89 152/78 (102) 98 05/06/17 00:00 82 05/05/17 23:00 79 05/05/17 22:00 82 05/05/17 21:00 84 05/05/17 20:00 92 142/63 (89) 94 05/05/17 20:00 90 05/05/17 19:00 90 05/05/17 18:39 76 05/05/17 17:14 20 05/05/17 17:00 74 05/05/17 16:00 76 05/05/17 15:40 97.9 78 18 179/86 (117) 94 05/05/17 15:00 80 05/05/17 14:22 97.9 76 18 168/80 (109) 94 05/05/17 14:00 97.6 76 18 168/80 (109) 96 05/05/17 14:00 76 I/O 05/05/17 05/05/17 05/05/17 05/06/17 05/06/17 05/06/17 07:00 15:00 23:00 07:00 15:00 23:00 Intake Total 420 ml 705 ml 1220 ml 360 ml Output Total 2200 ml 420 ml Balance 420 ml 705 ml -980 ml -60 ml Intake Oral 420 ml 875 ml 360 ml IV Total 105 ml 345 ml Other 600 ml Output Urine Total 200 ml 420 ml Hemodialysis 2000 ml # Voids 4 # Bowel Movements 4 0 Result Diagram: 05/06/17 0417 05/05/17 1634 Imaging Last Impressions Carotid Artery Ultrasound 05/02/17 0000 Signed Impressions: Service Date/Time: Tuesday, May 02, 2017 12:26 - CONCLUSION: 1. Moderate calcified plaque in the left carotid bulb and proximal internal carotid artery with estimated 50-69%% stenosis based on velocity measurements. 2. The right carotid system is not evaluated since it was obscured by a central line. Keegan Santos MD Abdomen/Pelvis CT 04/29/17 0000 Signed Impressions: Service Date/Time: Saturday, April 29, 2017 10:38 - CONCLUSION: 1. Stable large right groin hematoma. 2. Vicarious excretion of contrast by the gallbladder and persistent contrast opacification of the kidneys characteristic of renal insufficiency. 3. Colonic diverticulosis without evidence of active inflammatory changes. 4. No evidence of acute process in the abdomen or pelvis. Reuben Carr MD Catheter Placement X-Ray 04/28/17 0000 Signed Impressions: Service Date/Time: Friday, April 28, 2017 16:14 - CONCLUSION: Uncomplicated venous catheter change as above. Stoney Morrow MD Lower Extremity Ultrasound 04/26/17 0000 Signed Impressions: Service Date/Time: Wednesday, April 26, 2017 14:24 - CONCLUSION: Large groin hematoma. No evidence of pseudoaneurysm Keegan Cedeno MD Chest X-Ray 04/22/17 0600 Signed Impressions: Service Date/Time: Saturday, April 22, 2017 02:19 - CONCLUSION: No acute cardiopulmonary disease identified. Trevor Townsend MD Renal Ultrasound 04/21/17 0000 Signed Impressions: Service Date/Time: Friday, April 21, 2017 17:11 - CONCLUSION: Stone in the lateral left kidney. No evidence of hydronephrosis or solid mass. No evidence of obstruction. Kirill Linder MD Objective Remarks General: Resting in bed in no acute distress Skin: Warm and dry. R ABD: Large hematoma from the right lower quadrant HEENT: EOM grossly I CV: Regular rate and rhythm without murmurs. Normal peripheral perfusion. No significant LE edema Lungs: Normal rate. decreased air movement without wheezing to auscultation Abdomen: Soft, nontender, non-distended with normal bowel sounds. MSK: Grossly normal ROM and motor function. No calf asymmetry or pain to palpation Neuro: Awake, alert. Grossly normal CN. No peripheral motor/sensory defects appreciated Procedures Vascath 04/22/17 Initiate hemodialysis 04/22/17 Catheterization and stent placement on 04/28/17 A/P Assessment and Plan 61 yo female with NSTEMI, acute COPD exacerbation, acute renal failure with chronic renal disease requiring hemodialysis. Cardiology and nephrology on board ; receiving dialysis. 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 Discharge Planning Pending clinical course. Patient currently scheduled for cardiac catheterization with stenting in order to decrease contrast load as she is in acute renal failure. Patient to receive dialysis per nephrology schedule. Problem List: (1) NSTEMI (non-ST elevated myocardial infarction) ICD Codes: I21.4 - Non-ST elevation (NSTEMI) myocardial infarction Status: Acute Plan: Impression: Troponin elevated at admission along with atypical chest pain. Non-specific ST-T wave changes on initial EKG's. Patient initially placed on Heparin. 04/24/2017- Patient s/p Catheterization per Dr. Cole which demonstrated NSTEMI, multivessel coronary disease, new cardiomyopathy with EF 45-50% Heparin drip discontinued due to hematoma and anemia - Cardiology consulted -CV surgery initially consulted but decision made for stenting rather than CABG for multivessel disease due to renal failure and concern for poor surgical outcome -S/P cath/stenting 04/28 (L circumflex, obtuse marginal) -Postpone stenting due to persistent anemia - Continue DAPT with aspirin and Brillinta -Continue Lipitor 10 mg qHS, Coreg 3.125 mg bid -Hold RISSA/ARB (2) Acute on chronic kidney failure ICD Codes: N17.9 - Acute kidney failure, unspecified; N18.9 - Chronic kidney disease, unspecified Status: Acute Plan: 05/06: Cr 2.53 (05/05) <- 3.55 (05/04) 600ml urine output overnight; 2000ml removed with last dialysis Nephrology consulted -PRN Dialysis -last dialysis 05/05 with 2000ml removal -Monitor electrolytes -Continue Bumex -Continue to monitor urine output, electrolytes - Avoid nephrotoxic agents, contrast agents Impression: Has a history of diabetes with diabetic nephropathy. Has proteinuria and oliguria with acute decrease in renal function. Her baseline creatinine is about 2.8, now with doubling of creatinine. Also with hyperkalemia and metabolic acidosis. Etiology includes chronic kidney disease with acute exacerbation possibly from poor cardiac output with NSTEMI. Renal ultrasound showing no obstruction, has stone that is non-obstructing Complement negative MIGUE negative, SPEP, urine immunofixation normal Hepatitis profile negative (3) Anemia ICD Codes: D64.9 - Anemia, unspecified Status: Acute Plan: 05/06: Hgb 11 <- 11.4 (05/05 S/P 2 U pRBC 05/04) <- 6.9 (05/04) -Continue to monitor H/H and transfuse as necessary: -Heparin as needed for procedures -GI consulted -VANGIE, PPI, monitor HH and supportive care -Planned colonoscopy today -Vascular surgery consulted -No surgical intervention needed at this time; follow RLE pulse checks and serial Hcts -Cleared from a vascular standpoint 04/27 Impression: Anemia in association with recent catheterization, R groin hematoma , positive hemmocult on recent heparin treatment 04/26- CT abdomen and pelvis 04/26: Right inguinal and right lower quadrant abdominal wall hematoma measuring 8.8 cm. Subcutaneous inflammatory changes which extend into the mons pubis region. Bilateral flank edema. Nonacute findings include small left pleural effusion, severe atherosclerotic disease, and sigmoid diverticulosis. No pseudoaneurysm. 04/26: LE US- large groin hematoma; no evidence of pseudoaneurysm 04/29- Repeat CT abdomen and pelvis on 04/29: Unchanged from previous CT abdomen (4) COPD (chronic obstructive pulmonary disease) ICD Codes: J44.9 - Chronic obstructive pulmonary disease, unspecified Status: Chronic Plan: History of COPD with recent upper respiratory symptoms and acute exacerbation, recently diagnosed with pneumonia while on cruise ship and was started on azithromycin. -Continue to wean steroids (IV Solumedrol 60 mg q12hrs started 04/21) -Will wean from 40mg BID to 30mg BID - DuoNebs q6hrs scheduled - Levaquin empirically, renally dosed, started 04/22 Q48H - O2 supplementation with target O2 90% (5) Hyperkalemia ICD Codes: E87.5 - Hyperkalemia; N18.9 - Chronic kidney disease, unspecified Status: Resolved Plan: Hyperkalemia up to 6.0 with acute renal failure. Resolved with hemodialysis. - Continue management per nephrology (6) Hyponatremia ICD Codes: E87.1 - Hypo-osmolality and hyponatremia Status: Resolved Plan: Hyponatremia with acute renal failure, asymptomatic, resolved at this time. - IV fluids per nephrology - Monitor electrolytes - Hemodialysis per nephrology (7) DM2 (diabetes mellitus, type 2) ICD Codes: E11.9 - Type 2 diabetes mellitus without complications Status: Chronic Plan: History of diabetes type II - Sliding scale insulin with glucose goal of 140-180 (8) HTN (hypertension) ICD Codes: I10 - HTN (hypertension) Status: Chronic Plan: Impression: Mild hypertension during hospitalization with SBP 140s-160; recent SBP increase to 180's-190's - Will increase carvedilol to 6.25mg BID (9) Hypothyroidism ICD Codes: E03.9 - Hypothyroidism, unspecified Status: Chronic Plan: TSH normal - Levothyroxine 50 mcg daily (10) Constipation ICD Codes: K59.00 - Constipation, unspecified Status: Resolved Plan: Impression: Patient reports feelings of constipation -Discussed with patient recommendation for Bisacodyl suppository if desired this evening; patient also has PRN oral bowel motility agents available (11) Secondary hyperparathyroidism (of renal origin) ICD Codes: N25.81 - Secondary hyperparathyroidism of renal origin Status: Acute Plan: Patient with secondary hyperparathyroidism with significantly elevated phosphate and low calcium. Intact PTH 364.5 1,25 OH Vit D 11 -Will plan to initiate supplementation - Dietary phosphate restriction to 900 mg/day -Consider PhosLo -Management per Nephrology (12) DVT Prophylaxis Status: Acute Plan: Heparin drip discontinued due to anemia/ suspected active bleeding (13) Nutrition, metabolism, and development symptoms ICD Codes: R63.8 - Other symptoms and signs concerning food and fluid intake Status: Acute Plan: Heart healthy diet IV fluids per nephrology Phosphate restriction 900 mg/day for hyperphosphatemia Hyponatremia, hyperkalemia initially Receiving dialysis per nephrology Acute renal failure with CKD, monitor renal function Protonix IV 40 mg daily Problem Qualifiers (1) Acute on chronic kidney failure: Qualified Codes: N17.9 - Acute kidney failure, unspecified; N18.9 - Chronic kidney disease, unspecified (2) Anemia: Qualified Codes: D64.9 - Anemia, unspecified (3) COPD (chronic obstructive pulmonary disease): (4) DM2 (diabetes mellitus, type 2): Qualified Codes: E11.8 - Type 2 diabetes mellitus with unspecified complications (5) HTN (hypertension): Qualified Codes: I10 - Essential (primary) hypertension (6) Hypothyroidism: Qualified Codes: E03.9 - Hypothyroidism, unspecified (7) Constipation: Qualified Codes: K59.00 - Constipation, unspecified Eric Stevenson MD, R3 May 06, 2017 14:16
[2017-05-06 18:01] LABS: BICARBONATE 29.8 MEQ/L (21.0-32.0); POTASSIUM 4.5 MEQ/L (3.5-5.1)
[2017-05-06] MEDS: ATORVASTATIN 10 MG TAB PO SCH (20:51)
[2017-05-07] VITALS (27 sets, daily range): BP systolic 124–177; BP diastolic 63–82; PULSE 72–90; RESP 16–18; TEMP 97.6–98.3; O2SAT 96–98
[2017-05-07] MEDS: oxyCODONE/ACETAMINOPHEN 10 MG/325 MG TAB PO PRN ×3 (00:12→21:50)
[2017-05-07] MEDS: LEVOTHYROXINE SODIUM 50 MCG TAB PO SCH (06:15)
[2017-05-07] MEDS: METOCLOPRAMIDE HCL 10 MG TAB PO SCH ×2 (06:15→16:09)
[2017-05-07 08:04] LABS: AUTOMATED NEUTROPHIL # 15.9 TH/MM3 (1.8-7.7); BASOPHIL % 0.2 % (0.0-2.0); EOSINOPHIL % 0.1 % (0.0-4.0); HEMATOCRIT 31.4 % (35.0-46.0); LYMPH % 3.1 % (9.0-44.0); LYMPHOCYTE # 0.5 TH/MM3 (1.0-4.8); MEAN CELL VOLUME 87.4 FL (80.0-100.0); MEAN CORPUSCULAR HEMOGLOBIN 29.3 PG (27.0-34.0); MEAN CORPUSCULAR HGB CONC 33.5 % (32.0-36.0); MONO % 6.6 % (0.0-8.0); PLATELET COUNT 125 TH/MM3 (150-450); RED BLOOD COUNT 3.59 MIL/MM3 (4.00-5.30); RED CELL DISTRIBUTION WIDTH 18.2 % (11.6-17.2); WHITE BLOOD COUNT 17.6 TH/MM3 (4.0-11.0)
[2017-05-07 08:07] LABS: HEMO FLAGS AUTO DIFF
[2017-05-07 08:12] LABS: APTT (PATIENT) 25.9 SEC (24.3-30.1)
[2017-05-07 08:52] LABS: ALKALINE PHOSPHATASE 72 U/L (45-117); ALT (GPT) 24 U/L (10-53); ANION GAP 10 MEQ/L (5-15); AST (GOT) 12 U/L (15-37); BICARBONATE 29.6 MEQ/L (21.0-32.0); BLOOD UREA NITROGEN 98 MG/DL (7-18); CHLORIDE 95 MEQ/L (98-107); GLOMERULAR FILTRATION RATE 11 ML/MIN (>89); MAGNESIUM 1.6 MG/DL (1.5-2.5); POTASSIUM 4.3 MEQ/L (3.5-5.1); SODIUM (NA) 135 MEQ/L (136-145); TOTAL BILIRUBIN ADULT 1.2 MG/DL (0.2-1.0)
[2017-05-07] MEDS: INSULIN DETEMIR 100 UNITS/ML VIAL SQ SCH ×2 (09:10→21:51)
[2017-05-07] MEDS: INSULIN ASPART SUPPLEMENTAL SCALE SQ SCH ×3 (09:10→21:52)
[2017-05-07 09:13] LABS: PLATELET ESTIMATE SMEAR LOW (NORMAL)
[2017-05-07 09:14] LABS: PLATELET MORPHOLOGY NORMAL (NORMAL); SCAN/DIFF AUTO DIFF CONFIRMED
--- NOTE | 2017-05-07 09:22 | HHI.NPPN ---
Subjective General Problems: Anemia, Edema Renal Failure: Chronic, Acute, Stage IV Additional Remarks Feels well today, no acute complaints. Review of Systems General Constitutional: Fatigue Respiratory Lungs: SOB Cardiovascular Cardiac: Edema, HAIR Objective Data Data Vital Signs Date Time Temp Pulse Resp B/P (MAP) Pulse Ox O2 Delivery O2 Flow Rate FiO2 05/07/17 07:30 97.6 72 18 174/74 (107) 97 05/07/17 07:30 72 05/07/17 06:00 76 05/07/17 05:00 74 05/07/17 04:00 78 05/07/17 03:00 98.3 78 18 177/82 (113) 96 05/07/17 03:00 80 05/07/17 02:00 74 05/07/17 01:00 74 05/07/17 00:00 76 05/06/17 23:00 98.1 77 18 168/80 (109) 97 05/06/17 23:00 80 05/06/17 22:00 76 05/06/17 21:00 84 05/06/17 20:00 76 05/06/17 20:00 98.6 77 18 172/81 (111) 94 05/06/17 19:00 78 05/06/17 18:00 84 05/06/17 17:00 78 05/06/17 16:00 76 05/06/17 15:30 74 05/06/17 15:30 98.3 75 16 169/76 (107) 95 05/06/17 15:00 74 05/06/17 14:00 78 05/06/17 13:00 78 05/06/17 12:00 72 05/06/17 11:30 75 05/06/17 11:30 97.9 75 18 159/75 (103) 98 05/06/17 11:00 76 05/06/17 10:00 86 -: 05/07/17 0731 05/07/17 0731 Tubes & Lines: Vas-Cath Physical Exam General Appearance: Well Developed, Well Nourished, No Acute Distress, Comfortable Eyes Eye Exam: Pupils Equal, Pupils Reactive Throat Throat Exam: Oral Mucosa Dovray & Moist Neck Neck Exam: Neck Supple Pulmonary Resp Exam: No Distress, Crackles, Rhonchi, Decreased Bases, Diminished Breath Sounds Cardiology CV Exam: Regular, Normal Sinus Rhythm, Good Perfusion Gastrointestinal/Abdomen GI Exam: Soft, Non-Tender, Bowel Sounds Present Genitourinary Exam: Clear Urine Musculoskeletal MS Exam: Joints Intact, Normal Tone, Good Strength Integumentary Skin Exam: Clear, Warm, Dry, Intact Extremeties Extremities Exam: Pedal Pulses Palpable, Trace Edema, Pitting Edema Neurologic Neuro Exam: Alert, Awake, Oriented, Speech Clear, Moving All Extremities Psychiatric Psych Exam: Appropriate Responses Assessment/Plan Discussed Condition With: Patient, Daughter Assessment Summary: LEEANN/Acute Renal Failure, [place] Hyperparathyroid, Fluid/ Volume Overload, Proteinuria, Hypertension, Diabetes Mellitus, CKD Stage IV Electrolyte Assessment: Hypocalcemia Problem List: (1) Acute on chronic kidney failure ICD Codes: N17.9 - Acute kidney failure, unspecified; N18.9 - Chronic kidney disease, unspecified Status: Acute Plan: She has advanced renal disease, Creatinine 2.8 at baseline, CKD 4 Suspected underlying diabetic nephropathy, heavy proteinuria in the past She has required intermittent dialysis this admission both for fluid removal and post cardiac catheterization Was dialyzed Monday, Monday, and Monday Volume status and electrolytes stable, patient notes feeling increased in UOP ( 2.2L/24 hours). Monitor electrolytes and renal function. It is possible that she has reached ESRD, but it remains to be determined. Seen on HD today. Continue to monitor UOP and potential for recovery. Next HD on Monday if needed. (2) NSTEMI (non-ST elevated myocardial infarction) ICD Codes: I21.4 - Non-ST elevation (NSTEMI) myocardial infarction Status: Acute Plan: Cardiology is following Has had 2 catheterizations this admission Repeat Cath postponed due to anemia. Medical management recommended. 2D echo: LVH, EF 45-50% On Brilinta (3) DM2 (diabetes mellitus, type 2) ICD Codes: E11.9 - Type 2 diabetes mellitus without complications Status: Chronic Plan: Insulin as needed to maintain glucose of 140-180 mg/dL while hospitalized (4) Metabolic bone disease ICD Codes: E88.9 - Metabolic disorder, unspecified; M90.80 - Osteopathy in diseases classified elsewhere, unspecified site Plan: Continue Calcium acetate On calcitriol for secondary hyperparathyroidism (5) Metabolic acidosis ICD Codes: E87.2 - Acidosis Status: Acute Plan: Corrected Follow metabolic profile (6) COPD with acute exacerbation ICD Codes: J44.1 - Chronic obstructive pulmonary disease with (acute) exacerbation Plan: On nebulizers, oxygen She is also on Levaquin and solumedrol (7) Anemia ICD Codes: D64.9 - Anemia, unspecified Status: Acute Plan: she received 2 units previously. Monitor Hb Repeat CT abd/pelvis confirmed hematoma Started venofer colonoscopy done. Hgb 10.5 today. (8) Hyperkalemia ICD Codes: E87.5 - Hyperkalemia; N18.9 - Chronic kidney disease, unspecified Status: Resolved Plan: Due to reduction in GFR and metabolic acidosis Improved with dialysis, monitor for recurrence Problem Qualifiers (1) Acute on chronic kidney failure: Qualified Codes: N17.9 - Acute kidney failure, unspecified; N18.9 - Chronic kidney disease, unspecified (2) DM2 (diabetes mellitus, type 2): Qualified Codes: E11.8 - Type 2 diabetes mellitus with unspecified complications (3) Anemia: Qualified Codes: D64.9 - Anemia, unspecified Ge Stinson MD May 07, 2017 09:21
--- NOTE | 2017-05-07 09:56 | PD.CARD.PN ---
Subjective Subjective Remarks Pt feels well, no complaints. Objective Medications Current Medications Medications (Trade) Dose Ordered Sig/Des Route Start Time Stop Time Status Last Admin (Duoneb Neb) 1 ampule Q4HR NEB PRN INH 04/21/17 06:45 Miscellaneous Information 1 Q361D XX 04/21/17 06:45 (Chlorhexidine 2% Cloth) Taper DAILY@04 TOP 04/22/17 04:00 04/18/18 03:59 04/27/17 00:35 (Chlorhexidine 2% Cloth) 3 pack UNSCH PRN TOP 04/21/17 06:45 (Malaika-Colace) 1 tab BID PO 04/21/17 09:00 05/06/17 20:51 (Milk Of Magnesia Liq) 30 ml Q12H PRN PO 04/21/17 06:45 (Senokot) 17.2 mg Q12H PRN PO 04/21/17 06:45 05/02/17 12:22 (Dulcolax Supp) 10 mg DAILY PRN RECTAL 04/21/17 06:45 05/03/17 14:10 (Lactulose Liq) 30 ml DAILY PRN PO 04/21/17 06:45 05/03/17 17:30 (Aspirin Chew) 81 mg DAILY CHEW 04/22/17 09:00 05/06/17 08:05 (Coreg) 3.125 mg Q12HR PO 04/21/17 09:00 Future Hold 05/04/17 09:14 (Lipitor) 10 mg HS PO 04/21/17 21:00 05/06/17 20:51 (Vitamin B12) 500 mcg DAILY PO 04/21/17 09:00 05/06/17 08:04 (Synthroid) 50 mcg DAILY@0600 PO 04/21/17 07:00 05/07/17 06:15 Levofloxacin/ Dextrose 100 ml @ 100 mls/hr Q48H IV 04/21/17 12:00 05/05/17 14:44 (Restoril) 15 mg HS PRN PO 04/21/17 20:45 05/06/17 00:20 Sodium Chloride 1,000 ml @ 0 mls/hr Q0M PRN OTHER 04/22/17 14:04 (Heparin Inj) 8,000 units UNSCH PRN IV FLUSH 04/22/17 14:15 05/03/17 11:17 Sodium Chloride 1,000 ml @ 200 mls/hr Q5H PRN IV 04/22/17 14:04 Sodium Chloride 1,000 ml @ 0 mls/hr Q0M PRN OTHER 04/22/17 14:04 (Mannitol Inj) 12.5 gm UNSCH PRN IV 04/22/17 14:15 Albumin Human 100 ml @ 60 mls/hr UNSCH PRN IV 04/22/17 14:15 05/03/17 11:17 (NS Flush) 5 ml UNSCH PRN IV FLUSH 04/22/17 14:15 (Heparin Inj) UNSCH PRN .XX 04/22/17 14:15 05/05/17 11:09 (Gentamicin (Dialysis) Inj) 20 mg UNSCH PRN OTHER 04/22/17 14:15 05/05/17 11:09 (Zofran Inj) 4 mg UNSCH PRN IV PUSH 04/22/17 14:15 (Tylenol) 650 mg UNSCH PRN PO 04/22/17 14:15 04/25/17 12:21 (Benadryl) 25 mg UNSCH PRN PO 04/22/17 14:15 (Nitrostat Sl) 0.4 mg UNSCH PRN SL 04/22/17 14:15 (Catapres) 0.1 mg UNSCH PRN PO 04/22/17 14:15 04/27/17 22:31 (Gelfoam 12 Mm/7 Mm Top) 1 foam UNSCH PRN TOP 04/22/17 14:15 (Apresoline Inj) 10 mg Q30M PRN IV PUSH 04/23/17 13:15 05/04/17 23:51 (Phoslo) 2,001 mg TID PO 04/23/17 18:00 05/06/17 18:31 (Rocaltrol) 0.25 mcg DAILY PO 04/24/17 09:15 05/06/17 08:04 (Atropine Inj) 0.5 mg UNSCH PRN IV PUSH 04/24/17 10:00 (NS Flush) 2 ml BID IV FLUSH 04/24/17 21:00 05/06/17 20:50 (NS Flush) 2 ml UNSCH PRN IV FLUSH 04/24/17 15:45 (D50w (Vial) Inj) 50 ml UNSCH PRN IV PUSH 04/24/17 15:45 (Morphine Inj) 2 mg Q3H PRN IV PUSH 04/26/17 09:30 04/29/17 13:33 (Bumex Inj) 2 mg BID@,18 IV PUSH 04/26/17 20:45 05/06/17 18:30 (Brilinta) 90 mg BID PO 04/29/17 09:00 05/06/17 20:51 (Percocet 5-325 Mg) 1 tab Q4H PRN PO 04/29/17 13:30 05/02/17 21:14 (Percocet 10-325 Mg) 1 tab Q4H PRN PO 04/29/17 13:30 05/07/17 06:15 (NovoLOG SUPPLEMENTAL SCALE) 1 ACHS SQ 04/30/17 21:00 05/07/17 09:10 (Levemir Inj) 5 units Q12HR SQ 04/30/17 21:00 05/07/17 09:10 (Glucagon Inj) 1 mg UNSCH PRN OTHER 04/30/17 18:15 (Protonix) 40 mg DAILY PO 05/01/17 12:30 05/06/17 08:05 (Reglan) 5 mg BIDAC PO 05/01/17 12:15 05/07/17 06:15 Iron Sucrose 100 mg/Sodium Chloride 105 ml @ 105 mls/hr DAILY IV 05/05/17 09:00 05/07/17 09:59 05/06/17 08:09 (Miralax) 17 gm DAILY PO 05/05/17 15:00 05/06/17 08:01 (SoluMEDROL INJ) 30 mg Q12HR IV PUSH 05/06/17 21:00 05/06/17 20:51 Vital Signs / I&O Vital Signs Date Time Temp Pulse Resp B/P (MAP) Pulse Ox O2 Delivery O2 Flow Rate FiO2 05/07/17 07:30 97.6 72 18 174/74 (107) 97 05/07/17 07:30 72 05/07/17 06:00 76 05/07/17 05:00 74 05/07/17 04:00 78 05/07/17 03:00 98.3 78 18 177/82 (113) 96 05/07/17 03:00 80 05/07/17 02:00 74 05/07/17 01:00 74 05/07/17 00:00 76 05/06/17 23:00 98.1 77 18 168/80 (109) 97 05/06/17 23:00 80 05/06/17 22:00 76 05/06/17 21:00 84 05/06/17 20:00 76 05/06/17 20:00 98.6 77 18 172/81 (111) 94 05/06/17 19:00 78 05/06/17 18:00 84 05/06/17 17:00 78 05/06/17 16:00 76 05/06/17 15:30 74 05/06/17 15:30 98.3 75 16 169/76 (107) 95 05/06/17 15:00 74 05/06/17 14:00 78 05/06/17 13:00 78 05/06/17 12:00 72 05/06/17 11:30 75 05/06/17 11:30 97.9 75 18 159/75 (103) 98 05/06/17 11:00 76 05/06/17 10:00 86 I/O 05/06/17 05/06/17 05/06/17 05/07/17 05/07/17 05/07/17 07:00 15:00 23:00 07:00 15:00 23:00 Intake Total 360 ml 1060 ml 240 ml Output Total 420 ml 750 ml 1500 ml Balance -60 ml 310 ml -1260 ml Intake Oral 360 ml 960 ml 240 ml IV Total 100 ml Output Urine Total 420 ml 750 ml 1500 ml # Bowel Movements 0 Physical Exam GENERAL: This is a well-nourished, well-developed patient, in no apparent distress. CARDIOVASCULAR: Regular rate and rhythm without murmurs, gallops, or rubs. RESPIRATORY: Clear to auscultation. Breath sounds equal bilaterally. No wheezes , rales, or rhonchi. GASTROINTESTINAL: Abdomen soft, non-tender, nondistended. Normal active bowel sounds MUSCULOSKELETAL: Extremities without clubbing, cyanosis, or edema. NEURO: Alert & Oriented x4 to person, place, time, situation. Moves all ext x4 Laboratory Laboratory Tests Test 05/06/17 16:17 05/07/17 07:31 Blood Urea Nitrogen 80 MG/DL 98 MG/DL Creatinine 3.90 MG/DL 4.08 MG/DL Random Glucose 224 MG/DL 157 MG/DL Calcium Level 7.8 MG/DL 8.0 MG/DL Sodium Level 135 MEQ/L 135 MEQ/L Potassium Level 4.5 MEQ/L 4.3 MEQ/L Chloride Level 96 MEQ/L 95 MEQ/L Carbon Dioxide Level 29.8 MEQ/L 29.6 MEQ/L Anion Gap 9 MEQ/L 10 MEQ/L Estimat Glomerular Filtration Rate 12 ML/MIN 11 ML/MIN White Blood Count 17.6 TH/MM3 Red Blood Count 3.59 MIL/MM3 Hemoglobin 10.5 GM/DL Hematocrit 31.4 % Mean Corpuscular Volume 87.4 FL Mean Corpuscular Hemoglobin 29.3 PG Mean Corpuscular Hemoglobin Concent 33.5 % Red Cell Distribution Width 18.2 % Platelet Count 125 TH/MM3 Mean Platelet Volume 8.6 FL Neutrophils (%) (Auto) 90.0 % Lymphocytes (%) (Auto) 3.1 % Monocytes (%) (Auto) 6.6 % Eosinophils (%) (Auto) 0.1 % Basophils (%) (Auto) 0.2 % Neutrophils # (Auto) 15.9 TH/MM3 Lymphocytes # (Auto) 0.5 TH/MM3 Monocytes # (Auto) 1.2 TH/MM3 Eosinophils # (Auto) 0.0 TH/MM3 Basophils # (Auto) 0.0 TH/MM3 CBC Comment AUTO DIFF Differential Comment AUTO DIFF CONFIRMED Platelet Estimate LOW Platelet Morphology Comment NORMAL Ovalocytes Acanthocytes Activated Partial Thromboplast Time 25.9 SEC Total Protein 5.3 GM/DL Albumin 3.0 GM/DL Phosphorus Level 3.9 MG/DL Magnesium Level 1.6 MG/DL Alkaline Phosphatase 72 U/L Aspartate Amino Transf (AST/SGOT) 12 U/L Alanine Aminotransferase (ALT/SGPT) 24 U/L Total Bilirubin 1.2 MG/DL Imaging Last Impressions Carotid Artery Ultrasound 05/02/17 0000 Signed Impressions: Service Date/Time: Tuesday, May 02, 2017 12:26 - CONCLUSION: 1. Moderate calcified plaque in the left carotid bulb and proximal internal carotid artery with estimated 50-69%% stenosis based on velocity measurements. 2. The right carotid system is not evaluated since it was obscured by a central line. Keegan Santos MD Abdomen/Pelvis CT 04/29/17 0000 Signed Impressions: Service Date/Time: Saturday, April 29, 2017 10:38 - CONCLUSION: 1. Stable large right groin hematoma. 2. Vicarious excretion of contrast by the gallbladder and persistent contrast opacification of the kidneys characteristic of renal insufficiency. 3. Colonic diverticulosis without evidence of active inflammatory changes. 4. No evidence of acute process in the abdomen or pelvis. Reuben Carr MD Catheter Placement X-Ray 04/28/17 0000 Signed Impressions: Service Date/Time: Friday, April 28, 2017 16:14 - CONCLUSION: Uncomplicated venous catheter change as above. Stoney Morrow MD Lower Extremity Ultrasound 04/26/17 0000 Signed Impressions: Service Date/Time: Wednesday, April 26, 2017 14:24 - CONCLUSION: Large groin hematoma. No evidence of pseudoaneurysm Keegan Cedeno MD Chest X-Ray 04/22/17 0600 Signed Impressions: Service Date/Time: Saturday, April 22, 2017 02:19 - CONCLUSION: No acute cardiopulmonary disease identified. Trevor Townsend MD Renal Ultrasound 04/21/17 0000 Signed Impressions: Service Date/Time: Friday, April 21, 2017 17:11 - CONCLUSION: Stone in the lateral left kidney. No evidence of hydronephrosis or solid mass. No evidence of obstruction. Kirill Linder MD Assessment and Plan Problem List: (1) NSTEMI (non-ST elevated myocardial infarction) ICD Codes: I21.4 - Non-ST elevation (NSTEMI) myocardial infarction Status: Acute Plan: 61 y/o F s/p PCI. Hospitalization complicated with significant right groin hematoma and renal failure requiring HD and PRBCs. Right groin unchanged and left groin nontender, no hematoma. H&H trended slightly down this AM. (2) Acute on chronic kidney failure ICD Codes: N17.9 - Acute kidney failure, unspecified; N18.9 - Chronic kidney disease, unspecified Status: Acute Plan: getting HD now (3) HTN (hypertension) ICD Codes: I10 - HTN (hypertension) Status: Chronic (4) HLD (hyperlipidemia) ICD Codes: E78.5 - HLD (hyperlipidemia) Status: Chronic (5) Anemia ICD Codes: D64.9 - Anemia, unspecified Status: Acute (6) Tobacco abuse counseling ICD Codes: Z71.6 - Tobacco abuse counseling Plan: counseled at length Assessment and Plan Doing well today, she will be more aggressive w/ PT; Dr. Cesar will return tomorrow to resume care. Problem Qualifiers (1) Acute on chronic kidney failure: Qualified Codes: N17.9 - Acute kidney failure, unspecified; N18.9 - Chronic kidney disease, unspecified (2) HTN (hypertension): Qualified Codes: I10 - Essential (primary) hypertension (3) HLD (hyperlipidemia): Qualified Codes: E78.5 - Hyperlipidemia, unspecified (4) Anemia: Qualified Codes: D64.9 - Anemia, unspecified Balaji Pérez MD May 07, 2017 09:56
[2017-05-07] MEDS: GENTAMICIN SULFATE (DIALYSIS USE ONLY) 20 MG/2 ML VIAL OTHER PRN (11:36)
--- NOTE | 2017-05-07 12:06 | HHI.FPPN ---
Subjective Remarks Mrs. Alicia was afebrile with stable vital signs overnight (intermittent HTN with max SBP 177). (2250 ml urine output overnight per EMR) Mrs. Alicia reports doing well overall today; she has continued R abdominal pain which she states is largely unchanged. Patient does not report chest pain or shortness of breath. Patient has not had bowel movement in the past several days. Patient reports increased urine output overnight. (Eric Stevenson MD, R3) Objective Vitals Vital Signs Date Time Temp Pulse Resp B/P (MAP) Pulse Ox O2 Delivery O2 Flow Rate FiO2 05/07/17 07:30 97.6 72 18 174/74 (107) 97 05/07/17 07:30 72 05/07/17 06:00 76 05/07/17 05:00 74 05/07/17 04:00 78 05/07/17 03:00 98.3 78 18 177/82 (113) 96 05/07/17 03:00 80 05/07/17 02:00 74 05/07/17 01:00 74 05/07/17 00:00 76 05/06/17 23:00 98.1 77 18 168/80 (109) 97 05/06/17 23:00 80 05/06/17 22:00 76 05/06/17 21:00 84 05/06/17 20:00 76 05/06/17 20:00 98.6 77 18 172/81 (111) 94 05/06/17 19:00 78 05/06/17 18:00 84 05/06/17 17:00 78 05/06/17 16:00 76 05/06/17 15:30 74 05/06/17 15:30 98.3 75 16 169/76 (107) 95 05/06/17 15:00 74 05/06/17 14:00 78 05/06/17 13:00 78 I/O 05/06/17 05/06/17 05/06/17 05/07/17 05/07/17 05/07/17 07:00 15:00 23:00 07:00 15:00 23:00 Intake Total 360 ml 1060 ml 240 ml Output Total 420 ml 750 ml 1500 ml Balance -60 ml 310 ml -1260 ml Intake Oral 360 ml 960 ml 240 ml IV Total 100 ml Output Urine Total 420 ml 750 ml 1500 ml # Bowel Movements 0 (Eric Stevenson MD, R3) Result Diagram: 05/07/17 0731 05/07/17 0731 Imaging Last Impressions Carotid Artery Ultrasound 05/02/17 0000 Signed Impressions: Service Date/Time: Tuesday, May 02, 2017 12:26 - CONCLUSION: 1. Moderate calcified plaque in the left carotid bulb and proximal internal carotid artery with estimated 50-69%% stenosis based on velocity measurements. 2. The right carotid system is not evaluated since it was obscured by a central line. Keegan Santos MD Abdomen/Pelvis CT 04/29/17 0000 Signed Impressions: Service Date/Time: Saturday, April 29, 2017 10:38 - CONCLUSION: 1. Stable large right groin hematoma. 2. Vicarious excretion of contrast by the gallbladder and persistent contrast opacification of the kidneys characteristic of renal insufficiency. 3. Colonic diverticulosis without evidence of active inflammatory changes. 4. No evidence of acute process in the abdomen or pelvis. Reuben Carr MD Catheter Placement X-Ray 04/28/17 0000 Signed Impressions: Service Date/Time: Friday, April 28, 2017 16:14 - CONCLUSION: Uncomplicated venous catheter change as above. Stoney Morrow MD Lower Extremity Ultrasound 04/26/17 0000 Signed Impressions: Service Date/Time: Wednesday, April 26, 2017 14:24 - CONCLUSION: Large groin hematoma. No evidence of pseudoaneurysm Keegan Cedeno MD Chest X-Ray 04/22/17 0600 Signed Impressions: Service Date/Time: Saturday, April 22, 2017 02:19 - CONCLUSION: No acute cardiopulmonary disease identified. Trevor Townsend MD Renal Ultrasound 04/21/17 0000 Signed Impressions: Service Date/Time: Friday, April 21, 2017 17:11 - CONCLUSION: Stone in the lateral left kidney. No evidence of hydronephrosis or solid mass. No evidence of obstruction. Kirill Linder MD Objective Remarks General: Resting in bed in no acute distress Skin: Warm and dry. R ABD: Large hematoma from the right lower quadrant HEENT: EOM grossly I CV: Regular rate and rhythm without murmurs. Normal peripheral perfusion. Mild LE edema Lungs: Normal rate. decreased air movement without wheezing to auscultation Abdomen: Soft, nontender, non-distended with normal bowel sounds. MSK: Grossly normal ROM and motor function. No calf asymmetry or pain to palpation Neuro: Awake, alert. Grossly normal CN. No peripheral motor/sensory defects appreciated Procedures Vascath 04/22/17 Initiate hemodialysis 04/22/17 Catheterization and stent placement on 04/28/17 (Eric Stevenson MD, R3) A/P Assessment and Plan 61 yo female with NSTEMI, acute COPD exacerbation, acute renal failure with chronic renal disease requiring hemodialysis. Cardiology and nephrology on board ; receiving dialysis. 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 Discussed with Dr. Tsang Discharge Planning Pending clinical course. Patient to receive dialysis per nephrology schedule. (Eric Stevenson MD, R3) Attending Attestation EMR reviewed. Case discussed with Dr Stevenson. Agree to content of this note, Dina Tsang M.D. (Dina Tsang MD) Problem List: (1) NSTEMI (non-ST elevated myocardial infarction) ICD Codes: I21.4 - Non-ST elevation (NSTEMI) myocardial infarction Status: Acute Plan: Impression: Troponin elevated at admission along with atypical chest pain. Non-specific ST-T wave changes on initial EKG's. Patient initially placed on Heparin. 04/24/2017- Patient s/p Catheterization per Dr. Cole which demonstrated NSTEMI, multivessel coronary disease, new cardiomyopathy with EF 45-50% Heparin drip discontinued due to hematoma and anemia - Cardiology consulted -CV surgery initially consulted but decision made for stenting rather than CABG for multivessel disease due to renal failure and concern for poor surgical outcome -S/P cath/stenting 04/28 (L circumflex, obtuse marginal) -Postpone stenting due to persistent anemia - Continue DAPT with aspirin and Brillinta -Continue Lipitor 10 mg qHS, Coreg 3.125 mg bid -Hold RISSA/ARB (2) Acute on chronic kidney failure ICD Codes: N17.9 - Acute kidney failure, unspecified; N18.9 - Chronic kidney disease, unspecified Status: Acute Plan: 05/06: Cr 2.53 (05/05) <- 3.55 (05/04) 600ml urine output overnight; 2000ml removed with last dialysis 05/07: Cr 4.08 <- 3.90 (05/06) <- 2.53 (05/05). 2250ml urine output overnight Nephrology consulted -PRN Dialysis -last dialysis today, 05/07, with 2000ml removal -Monitor electrolytes -Continue Bumex -Continue to monitor urine output, electrolytes - Avoid nephrotoxic agents, contrast agents Impression: Has a history of diabetes with diabetic nephropathy. Has proteinuria and oliguria with acute decrease in renal function. Her baseline creatinine is about 2.8, now with doubling of creatinine. Also with hyperkalemia and metabolic acidosis. Etiology includes chronic kidney disease with acute exacerbation possibly from poor cardiac output with NSTEMI. Renal ultrasound showing no obstruction, has stone that is non-obstructing Complement negative MIGUE negative, SPEP, urine immunofixation normal Hepatitis profile negative (3) Anemia ICD Codes: D64.9 - Anemia, unspecified Status: Acute Plan: 05/07: Hgb 10.5 <- 11 (05/06) <- 11.4 (05/05 S/P 2 U pRBC 05/04) <- 6.9 ( 05/04) -Continue to monitor H/H and transfuse as necessary: -Heparin as needed for procedures -GI consulted -VANGIE, PPI, monitor HH and supportive care -Planned colonoscopy today -Vascular surgery consulted -No surgical intervention needed at this time; follow RLE pulse checks and serial Hcts -Cleared from a vascular standpoint 04/27 Impression: Anemia in association with recent catheterization, R groin hematoma , positive Hemoccult on recent heparin treatment 04/26- CT abdomen and pelvis 04/26: Right inguinal and right lower quadrant abdominal wall hematoma measuring 8.8 cm. Subcutaneous inflammatory changes which extend into the mons pubis region. Bilateral flank edema. Nonacute findings include small left pleural effusion, severe atherosclerotic disease, and sigmoid diverticulosis. No pseudoaneurysm. 04/26: LE US- large groin hematoma; no evidence of pseudoaneurysm 04/29- Repeat CT abdomen and pelvis on 04/29: Unchanged from previous CT abdomen (4) COPD (chronic obstructive pulmonary disease) ICD Codes: J44.9 - Chronic obstructive pulmonary disease, unspecified Status: Chronic Plan: History of COPD with recent upper respiratory symptoms and acute exacerbation, recently diagnosed with pneumonia while on cruise ship and was started on azithromycin. -Continue to wean steroids (IV Solumedrol 60 mg q12hrs started 04/21) -Will wean ~q3 days- currently at 30mg BID - DuoNebs q6hrs scheduled - Levaquin empirically, renally dosed, started 04/22 Q48H -Will plan to discontinue 05/08 - O2 supplementation with target O2 90% (5) Hyponatremia ICD Codes: E87.1 - Hypo-osmolality and hyponatremia Status: Resolved Plan: 05/07: Na 135 Hyponatremia with acute renal failure, asymptomatic, resolved at this time. - IV fluids per nephrology - Monitor electrolytes - Hemodialysis per nephrology (6) DM2 (diabetes mellitus, type 2) ICD Codes: E11.9 - Type 2 diabetes mellitus without complications Status: Chronic Plan: History of diabetes type II - Sliding scale insulin with glucose goal of 140-180 (7) HTN (hypertension) ICD Codes: I10 - HTN (hypertension) Status: Chronic Plan: Impression: Mild hypertension during hospitalization with SBP 140s-160; recent SBP increase to 180's-190's - Continue carvedilol 3.125mg BID (8) Hypothyroidism ICD Codes: E03.9 - Hypothyroidism, unspecified Status: Chronic Plan: TSH normal - Levothyroxine 50 mcg daily (9) Constipation ICD Codes: K59.00 - Constipation, unspecified Status: Resolved Plan: Impression: Patient reports feelings of constipation -Discussed with patient recommendation for Bisacodyl suppository if desired this evening; patient also has PRN oral bowel motility agents available (10) Secondary hyperparathyroidism (of renal origin) ICD Codes: N25.81 - Secondary hyperparathyroidism of renal origin Status: Acute Plan: Patient with secondary hyperparathyroidism with significantly elevated phosphate and low calcium. Intact PTH 364.5 1,25 OH Vit D 11 -Will plan to initiate supplementation - Dietary phosphate restriction to 900 mg/day -Consider PhosLo -Management per Nephrology (11) DVT Prophylaxis Status: Acute Plan: Heparin drip discontinued due to anemia/ suspected active bleeding (12) Nutrition, metabolism, and development symptoms ICD Codes: R63.8 - Other symptoms and signs concerning food and fluid intake Status: Acute Plan: Heart healthy diet IV fluids per nephrology Phosphate restriction 900 mg/day for hyperphosphatemia Hyponatremia, hyperkalemia initially Receiving dialysis per nephrology Acute renal failure with CKD, monitor renal function Protonix IV 40 mg daily (Chotas,Eric N MD, R3) Problem Qualifiers (1) Acute on chronic kidney failure: Qualified Codes: N17.9 - Acute kidney failure, unspecified; N18.9 - Chronic kidney disease, unspecified (2) Anemia: Qualified Codes: D64.9 - Anemia, unspecified (3) COPD (chronic obstructive pulmonary disease): (4) DM2 (diabetes mellitus, type 2): (5) HTN (hypertension): Qualified Codes: I10 - Essential (primary) hypertension (6) Hypothyroidism: Qualified Codes: E03.9 - Hypothyroidism, unspecified (7) Constipation: Qualified Codes: K59.00 - Constipation, unspecified Eric Stevenson MD, R3 May 07, 2017 12:06 Dina Tsang MD May 07, 2017 12:39
[2017-05-07] MEDS: CALCITRIOL 0.25 MCG CAP PO SCH (12:40)
[2017-05-07] MEDS: BUMETANIDE INJ 1 MG/4 ML VIAL IV PUSH SCH ×2 (12:40→18:36)
[2017-05-07] MEDS: CALCIUM ACETATE 667 MG CAP PO SCH ×2 (12:40→18:35)
[2017-05-07] MEDS: DOCUSATE SODIUM 50 MG/SENNA 8.6 MG TAB PO SCH ×2 (12:42→21:50)
[2017-05-07] MEDS: ASPIRIN 81 MG CHEW TAB CHEW SCH (12:42)
[2017-05-07] MEDS: methylPREDNISolone SOD SUCC 40 MG/1 ML VIAL IV PUSH SCH ×2 (12:42→21:51)
[2017-05-07] MEDS: PANTOPRAZOLE SOD 40 MG DELAYED RELEASE TAB PO SCH (12:42)
[2017-05-07] MEDS: CYANOCOBALAMIN 1,000 MCG TAB PO SCH (12:43)
[2017-05-07] MEDS: TICAGRELOR 90 MG TAB PO SCH ×2 (12:43→21:51)
[2017-05-07] MEDS: POLYETHYLENE GLYCOL 17 GM PKG PO SCH (12:45)
[2017-05-07] MEDS: SODIUM CHLORIDE 0.9% FLUSH 10 ML FLUSH IV FLUSH SCH ×2 (12:48→21:51)
[2017-05-07] MEDS: LEVOFLOXACIN 500 MG PREMIX INJ 100 ML IV SCH (15:55)
[2017-05-07] MEDS: CARVEDILOL 3.125 MG TAB PO SCH (21:50)
[2017-05-07] MEDS: ATORVASTATIN 10 MG TAB PO SCH (21:50)
[2017-05-08] VITALS (25 sets, daily range): BP systolic 133–152; BP diastolic 69–78; PULSE 72–104; RESP 14–18; TEMP 97–98.3; O2SAT 96–98
[2017-05-08] MEDS: TEMAZEPAM 15 MG CAP PO PRN (00:14)
[2017-05-08] MEDS: CHLORHEXIDINE GLUCONATE 2 % 1 PACK (2 CLOTHS) TOP SCH (02:50)
[2017-05-08] MEDS: LEVOTHYROXINE SODIUM 50 MCG TAB PO SCH (05:04)
[2017-05-08 05:24] LABS: AUTOMATED NEUTROPHIL # 15.2 TH/MM3 (1.8-7.7); BASOPHIL % 0.1 % (0.0-2.0); HEMATOCRIT 30.9 % (35.0-46.0); HEMO FLAGS DIFF FINAL; LYMPH % 1.8 % (9.0-44.0); LYMPHOCYTE # 0.3 TH/MM3 (1.0-4.8); MEAN CORPUSCULAR HEMOGLOBIN 28.8 PG (27.0-34.0); MEAN CORPUSCULAR HGB CONC 32.7 % (32.0-36.0); MONO % 5.1 % (0.0-8.0); PLATELET COUNT 115 TH/MM3 (150-450); RED BLOOD COUNT 3.51 MIL/MM3 (4.00-5.30); RED CELL DISTRIBUTION WIDTH 17.5 % (11.6-17.2); WHITE BLOOD COUNT 16.3 TH/MM3 (4.0-11.0)
[2017-05-08 05:40] LABS: BICARBONATE 30.8 MEQ/L (21.0-32.0); POTASSIUM 4.6 MEQ/L (3.5-5.1)
[2017-05-08] MEDS: METOCLOPRAMIDE HCL 10 MG TAB PO SCH ×2 (06:35→16:05)
[2017-05-08 07:04] LABS: APTT (PATIENT) 24.9 SEC (24.3-30.1)
--- NOTE | 2017-05-08 08:18 | HHI.FPPN ---
Subjective Remarks Mrs. Alicia was afebrile with stable vital signs overnight (mild HTN). Patient with 1450ml urine output overnight. Patient reports that she is overall doing well; she has some continued mild abdominal pain. Patient reports that she is breathing well. No chest pain. Patient reports not having a bowel movement in several days. (Eric Stevenson MD, R3) Objective Vitals Vital Signs Date Time Temp Pulse Resp B/P (MAP) Pulse Ox O2 Delivery O2 Flow Rate FiO2 05/08/17 06:15 75 05/08/17 05:54 77 05/08/17 04:36 76 05/08/17 03:30 76 05/08/17 03:20 97.9 76 16 152/78 (102) 96 05/08/17 02:15 80 05/08/17 01:16 76 05/08/17 00:29 78 05/07/17 23:59 80 05/07/17 23:15 98.0 79 17 152/71 (98) 96 05/07/17 22:15 84 05/07/17 21:00 86 05/07/17 20:00 82 05/07/17 19:30 89 05/07/17 19:25 98.2 86 16 139/63 (88) 97 05/07/17 18:00 90 05/07/17 17:00 84 05/07/17 16:00 84 05/07/17 15:30 87 05/07/17 15:30 97.8 87 18 147/71 (96) 98 05/07/17 14:00 78 05/07/17 13:00 78 05/07/17 12:00 76 05/07/17 11:50 98.0 89 16 124/68 (86) 98 05/07/17 11:50 72 05/07/17 11:00 80 05/07/17 10:00 76 05/07/17 09:00 76 I/O 05/07/17 05/07/17 05/07/17 05/08/17 05/08/17 05/08/17 07:00 15:00 23:00 07:00 15:00 23:00 Intake Total 240 ml 940 ml 240 ml Output Total 1500 ml 2500 ml 850 ml 600 ml Balance -1260 ml -2500 ml 90 ml -360 ml Intake Oral 240 ml 840 ml 240 ml IV Total 100 ml Output Urine Total 1500 ml 850 ml 600 ml Hemodialysis 2500 ml # Bowel Movements 0 0 (Eric Stevenson MD, R3) Result Diagram: 05/08/1762905/08/17629 Imaging Last Impressions Carotid Artery Ultrasound 05/02/17 0000 Signed Impressions: Service Date/Time: Tuesday, May 02, 2017 12:26 - CONCLUSION: 1. Moderate calcified plaque in the left carotid bulb and proximal internal carotid artery with estimated 50-69%% stenosis based on velocity measurements. 2. The right carotid system is not evaluated since it was obscured by a central line. Keegan Santos MD Abdomen/Pelvis CT 04/29/17 0000 Signed Impressions: Service Date/Time: Saturday, April 29, 2017 10:38 - CONCLUSION: 1. Stable large right groin hematoma. 2. Vicarious excretion of contrast by the gallbladder and persistent contrast opacification of the kidneys characteristic of renal insufficiency. 3. Colonic diverticulosis without evidence of active inflammatory changes. 4. No evidence of acute process in the abdomen or pelvis. Reuben Carr MD Catheter Placement X-Ray 04/28/17 0000 Signed Impressions: Service Date/Time: Friday, April 28, 2017 16:14 - CONCLUSION: Uncomplicated venous catheter change as above. Stoney Morrow MD Lower Extremity Ultrasound 04/26/17 0000 Signed Impressions: Service Date/Time: Wednesday, April 26, 2017 14:24 - CONCLUSION: Large groin hematoma. No evidence of pseudoaneurysm Keegan Cedeno MD Chest X-Ray 04/22/17 0600 Signed Impressions: Service Date/Time: Saturday, April 22, 2017 02:19 - CONCLUSION: No acute cardiopulmonary disease identified. Trevor Townsend MD Renal Ultrasound 04/21/17 0000 Signed Impressions: Service Date/Time: Friday, April 21, 2017 17:11 - CONCLUSION: Stone in the lateral left kidney. No evidence of hydronephrosis or solid mass. No evidence of obstruction. Kirill Linder MD Objective Remarks General: Resting in bed in no acute distress Skin: Warm and dry. R ABD: Large hematoma from the right lower quadrant; seems unchanged HEENT: EOM grossly I CV: Regular rate and rhythm without murmurs. Normal peripheral perfusion. Mild LE edema Lungs: Normal rate. decreased air movement without wheezing to auscultation Abdomen: Soft, nontender, non-distended with normal bowel sounds. MSK: Grossly normal ROM and motor function. No calf asymmetry or pain to palpation Neuro: Awake, alert. Grossly normal CN. No peripheral motor/sensory defects appreciated Procedures Vascath 04/22/17 Initiate hemodialysis 04/22/17 Catheterization and stent placement on 04/28/17 (Eric Stevenson MD, R3) A/P Assessment and Plan 61 yo female with NSTEMI, acute COPD exacerbation, acute renal failure with chronic renal disease requiring hemodialysis. Cardiology and nephrology on board ; receiving dialysis. 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 Patient will be managed medically with follow-up with Cardiology. Discussed with Dr. Tsang Discharge Planning Planned discharge today to [place] with planned Nephrology follow-up for dialysis. (Eric Stevenson MD, R3) Attending Attestation Patient seen and examined. Will not undergo additional stenting at this time, will proceed with plans for rehabilitation, arrangements pending. Case reviewed and discussed with Dr Stevenson. Agree with plan of care as discussed with me and documented in the resident note. (Dina Tsang MD) Problem List: (1) NSTEMI (non-ST elevated myocardial infarction) ICD Codes: I21.4 - Non-ST elevation (NSTEMI) myocardial infarction Status: Acute Plan: Impression: Troponin elevated at admission along with atypical chest pain. Non-specific ST-T wave changes on initial EKG's. Patient initially placed on Heparin. 04/24/2017- Patient s/p Catheterization per Dr. Cole which demonstrated NSTEMI, multivessel coronary disease, new cardiomyopathy with EF 45-50% Heparin drip discontinued due to hematoma and anemia - Cardiology consulted -CV surgery initially consulted but decision made for stenting rather than CABG for multivessel disease due to renal failure and concern for poor surgical outcome -S/P cath/stenting 04/28 (L circumflex, obtuse marginal) -Postpone stenting due to persistent anemia; will manage medically - Continue DAPT with aspirin and Brillinta -Continue Lipitor 10 mg qHS, Coreg 3.125 mg bid -Hold RISSA/ARB (2) Acute on chronic kidney failure ICD Codes: N17.9 - Acute kidney failure, unspecified; N18.9 - Chronic kidney disease, unspecified Status: Acute Plan: 05/06: Cr 2.53 (05/05) <- 3.55 (05/04) 600ml urine output overnight; 2000ml removed with last dialysis 05/07: Cr 4.08 <- 3.90 (05/06) <- 2.53 (05/05). 2250ml urine output overnight 05/08: Cr 3.18 <- 4.08 (05/07). 1450ml urine output overnight. 2500ml removed via dialysis yesterday Nephrology consulted -PRN Dialysis -last dialysis 05/07, with 2500ml removal -Monitor electrolytes -Continue Bumex 2mg IV BID -Continue to monitor urine output, electrolytes - Avoid nephrotoxic agents, contrast agents Impression: Has a history of diabetes with diabetic nephropathy. Has proteinuria and oliguria with acute decrease in renal function. Her baseline creatinine is about 2.8, now with doubling of creatinine. Also with hyperkalemia and metabolic acidosis. Etiology includes chronic kidney disease with acute exacerbation possibly from poor cardiac output with NSTEMI. Renal ultrasound showing no obstruction, has stone that is non-obstructing Complement negative MIGUE negative, SPEP, urine immunofixation normal Hepatitis profile negative (3) Anemia ICD Codes: D64.9 - Anemia, unspecified Status: Acute Plan: 05/08: Hgb 10.1 <- 10.5 (05/07) <- 11 (05/06) <- 11.4 (05/05 S/P 2 U pRBC 05/04) <- 6.9 (05/04) -Continue to monitor H/H and transfuse as necessary: -Heparin as needed for procedures -GI consulted -VANGIE, PPI, monitor HH and supportive care -Planned colonoscopy today -Vascular surgery consulted -No surgical intervention needed at this time; follow RLE pulse checks and serial Hcts -Cleared from a vascular standpoint 04/27 Impression: Anemia in association with recent catheterization, R groin hematoma , positive Hemoccult on recent heparin treatment 04/26- CT abdomen and pelvis 04/26: Right inguinal and right lower quadrant abdominal wall hematoma measuring 8.8 cm. Subcutaneous inflammatory changes which extend into the mons pubis region. Bilateral flank edema. Nonacute findings include small left pleural effusion, severe atherosclerotic disease, and sigmoid diverticulosis. No pseudoaneurysm. 04/26: LE US- large groin hematoma; no evidence of pseudoaneurysm 04/29- Repeat CT abdomen and pelvis on 04/29: Unchanged from previous CT abdomen (4) COPD (chronic obstructive pulmonary disease) ICD Codes: J44.9 - Chronic obstructive pulmonary disease, unspecified Status: Chronic Plan: History of COPD with recent upper respiratory symptoms and acute exacerbation, recently diagnosed with pneumonia while on cruise ship and was started on azithromycin. -Continue to wean steroids (IV Solumedrol 60 mg q12hrs started 04/21) -Will wean ~q3 days- currently at 30mg BID - DuoNebs q6hrs scheduled - Levaquin discontinued 05/08 - O2 supplementation with target O2 90% Antibiotic History: Levaquin (04/22- 05/08) (5) Hyponatremia ICD Codes: E87.1 - Hypo-osmolality and hyponatremia Status: Resolved Plan: 05/08: Na 135 Hyponatremia with acute renal failure, asymptomatic, resolved at this time. - IV fluids per nephrology - Monitor electrolytes - Hemodialysis per nephrology (6) DM2 (diabetes mellitus, type 2) ICD Codes: E11.9 - Type 2 diabetes mellitus without complications Status: Chronic Plan: History of diabetes type II - Sliding scale insulin with glucose goal of 140-180 (7) HTN (hypertension) ICD Codes: I10 - HTN (hypertension) Status: Chronic Plan: Impression: Mild hypertension during hospitalization with SBP 140s-160; recent SBP increase to 180's-190's off of Carvedilol - Continue carvedilol 3.125mg BID (8) Hypothyroidism ICD Codes: E03.9 - Hypothyroidism, unspecified Status: Chronic Plan: TSH normal - Levothyroxine 50 mcg daily (9) Constipation ICD Codes: K59.00 - Constipation, unspecified Status: Resolved Plan: Impression: Patient reports feelings of constipation -PRN oral bowel motility agents available (10) Secondary hyperparathyroidism (of renal origin) ICD Codes: N25.81 - Secondary hyperparathyroidism of renal origin Status: Acute Plan: Patient with secondary hyperparathyroidism with significantly elevated phosphate and low calcium. Intact PTH 364.5 1,25 OH Vit D 11 -Will plan to initiate supplementation - Dietary phosphate restriction to 900 mg/day -Consider PhosLo -Management per Nephrology (11) DVT Prophylaxis Status: Acute Plan: Heparin drip discontinued due to anemia/ suspected active bleeding Patient at high risk of thrombosis due to comorbidities but also has concern for continued Hgb decrease (12) Nutrition, metabolism, and development symptoms ICD Codes: R63.8 - Other symptoms and signs concerning food and fluid intake Status: Acute Plan: Heart healthy diet IV fluids PRN per nephrology Phosphate restriction 900 mg/day for hyperphosphatemia Hyponatremia, hyperkalemia initially Receiving dialysis per nephrology Acute renal failure with CKD, monitor renal function Protonix 40mg PO daily on steroids (Eric Stevenson MD, R3) Problem Qualifiers (1) Acute on chronic kidney failure: Qualified Codes: N17.9 - Acute kidney failure, unspecified; N18.9 - Chronic kidney disease, unspecified (2) Anemia: Qualified Codes: D64.9 - Anemia, unspecified (3) COPD (chronic obstructive pulmonary disease): (4) DM2 (diabetes mellitus, type 2): (5) HTN (hypertension): Qualified Codes: I10 - Essential (primary) hypertension (6) Hypothyroidism: Qualified Codes: E03.9 - Hypothyroidism, unspecified (7) Constipation: Qualified Codes: K59.00 - Constipation, unspecified Eric Stevenson MD, R3 May 08, 2017 08:18 Dina Tsang MD May 08, 2017 13:24
[2017-05-08] MEDS: DOCUSATE SODIUM 50 MG/SENNA 8.6 MG TAB PO SCH ×2 (08:29→21:00)
[2017-05-08] MEDS: CALCITRIOL 0.25 MCG CAP PO SCH (08:29)
[2017-05-08] MEDS: CALCIUM ACETATE 667 MG CAP PO SCH ×3 (08:30→17:20)
[2017-05-08] MEDS: PANTOPRAZOLE SOD 40 MG DELAYED RELEASE TAB PO SCH (08:30)
[2017-05-08] MEDS: CARVEDILOL 3.125 MG TAB PO SCH ×2 (08:30→22:27)
[2017-05-08] MEDS: CYANOCOBALAMIN 1,000 MCG TAB PO SCH (08:31)
[2017-05-08] MEDS: TICAGRELOR 90 MG TAB PO SCH ×2 (08:31→21:00)
[2017-05-08] MEDS: ASPIRIN 81 MG CHEW TAB CHEW SCH (08:32)
[2017-05-08] MEDS: oxyCODONE/ACETAMINOPHEN 5 MG/325 MG TAB PO PRN ×3 (08:33→23:27)
[2017-05-08] MEDS: BUMETANIDE INJ 1 MG/4 ML VIAL IV PUSH SCH (08:34)
[2017-05-08] MEDS: POLYETHYLENE GLYCOL 17 GM PKG PO SCH (08:35)
[2017-05-08] MEDS: methylPREDNISolone SOD SUCC 40 MG/1 ML VIAL IV PUSH SCH ×2 (08:35→22:29)
[2017-05-08] MEDS: INSULIN DETEMIR 100 UNITS/ML VIAL SQ SCH ×2 (08:35→23:25)
[2017-05-08] MEDS: SODIUM CHLORIDE 0.9% FLUSH 10 ML FLUSH IV FLUSH SCH ×2 (09:13→21:00)
[2017-05-08] MEDS: INSULIN ASPART SUPPLEMENTAL SCALE SQ SCH ×4 (09:13→23:25)
--- NOTE | 2017-05-08 10:14 | HHI.NPPN ---
Subjective General Problems: Anemia, Edema Renal Failure: Chronic, Acute, Stage IV Interval History Sitting on edge of bed. Has minor lower extremity edema. Dialyzed yesterday. (Cris Telles) Review of Systems General Constitutional: Fatigue (Cris Telles) Respiratory Lungs: SOB (Cris Telles) Cardiovascular Cardiac: Edema, HAIR (Cris Telles) Objective Data Data Vital Signs Date Time Temp Pulse Resp B/P (MAP) Pulse Ox O2 Delivery O2 Flow Rate FiO2 05/08/17 06:15 75 05/08/17 05:54 77 05/08/17 04:36 76 05/08/17 03:30 76 05/08/17 03:20 97.9 76 16 152/78 (102) 96 05/08/17 02:15 80 05/08/17 01:16 76 05/08/17 00:29 78 05/07/17 23:59 80 05/07/17 23:15 98.0 79 17 152/71 (98) 96 05/07/17 22:15 84 05/07/17 21:00 86 05/07/17 20:00 82 05/07/17 19:30 89 05/07/17 19:25 98.2 86 16 139/63 (88) 97 05/07/17 18:00 90 05/07/17 17:00 84 05/07/17 16:00 84 05/07/17 15:30 87 05/07/17 15:30 97.8 87 18 147/71 (96) 98 05/07/17 14:00 78 05/07/17 13:00 78 05/07/17 12:00 76 05/07/17 11:50 98.0 89 16 124/68 (86) 98 05/07/17 11:50 72 05/07/17 11:00 80 (Cris Telles) -: 05/08/17 0630 05/08/17 0630 Imaging Last Impressions Carotid Artery Ultrasound 05/02/17 0000 Signed Impressions: Service Date/Time: Tuesday, May 02, 2017 12:26 - CONCLUSION: 1. Moderate calcified plaque in the left carotid bulb and proximal internal carotid artery with estimated 50-69%% stenosis based on velocity measurements. 2. The right carotid system is not evaluated since it was obscured by a central line. Keegan Santos MD Abdomen/Pelvis CT 04/29/17 0000 Signed Impressions: Service Date/Time: Saturday, April 29, 2017 10:38 - CONCLUSION: 1. Stable large right groin hematoma. 2. Vicarious excretion of contrast by the gallbladder and persistent contrast opacification of the kidneys characteristic of renal insufficiency. 3. Colonic diverticulosis without evidence of active inflammatory changes. 4. No evidence of acute process in the abdomen or pelvis. Reuben Carr MD Catheter Placement X-Ray 04/28/17 0000 Signed Impressions: Service Date/Time: Friday, April 28, 2017 16:14 - CONCLUSION: Uncomplicated venous catheter change as above. Stoney Morrow MD Lower Extremity Ultrasound 04/26/17 0000 Signed Impressions: Service Date/Time: Wednesday, April 26, 2017 14:24 - CONCLUSION: Large groin hematoma. No evidence of pseudoaneurysm Keegan Cedeno MD Chest X-Ray 04/22/17 0600 Signed Impressions: Service Date/Time: Saturday, April 22, 2017 02:19 - CONCLUSION: No acute cardiopulmonary disease identified. Trevor Townsend MD Renal Ultrasound 04/21/17 0000 Signed Impressions: Service Date/Time: Friday, April 21, 2017 17:11 - CONCLUSION: Stone in the lateral left kidney. No evidence of hydronephrosis or solid mass. No evidence of obstruction. Kirill Linder MD Tubes & Lines: Vas-Cath (Cris Telles B. [employer]AREBOX REPAIRER) Physical Exam General Appearance: Well Developed, Well Nourished, No Acute Distress, Comfortable (Elfego,Cris B. [employer]BOX REPAIRER) Eyes Eye Exam: Pupils Equal, Pupils Reactive (ElfegoCris B. [employer]BOX REPAIRER) Throat Throat Exam: Oral Mucosa [address] & Moist (Elfego,Cris B. F[employer]BOX REPAIRER) Neck Neck Exam: Neck Supple (Elfego,Cris B. [employer]BOX REPAIRER) Pulmonary Resp Exam: No Distress, Crackles, Rhonchi, Decreased Bases, Diminished Breath Sounds (Elfego,Cris B. [employer]BOX REPAIRER) Cardiology CV Exam: Regular, Normal Sinus Rhythm, Good Perfusion (ElfegoCris B. F[employer]BOX REPAIRER) Gastrointestinal/Abdomen GI Exam: Soft, Non-Tender, Bowel Sounds Present GI Remarks RLQ ecchymosis (Cris Telles) Genitourinary Exam: Clear Urine (Cris Telles) Musculoskeletal MS Exam: Joints Intact, Normal Tone, Good Strength (Cris Telles) Integumentary Skin Exam: Clear, Warm, Dry, Intact (Cris Telles) Extremeties Extremities Exam: Pedal Pulses Palpable, Trace Edema, Pitting Edema (Cris Telles) Neurologic Neuro Exam: Alert, Awake, Oriented, Speech Clear, Moving All Extremities (Cris Telles) Psychiatric Psych Exam: Appropriate Responses (Cris Telles) Assessment/Plan Discussed Condition With: Patient, Daughter Assessment Summary: LEEANN/Acute Renal Failure, [place] Hyperparathyroid, Fluid/ Volume Overload, Proteinuria, Hypertension, Diabetes Mellitus, CKD Stage IV Electrolyte Assessment: Hypocalcemia Problem List: (1) Acute on chronic kidney failure ICD Codes: N17.9 - Acute kidney failure, unspecified; N18.9 - Chronic kidney disease, unspecified Status: Acute Plan: She has advanced renal disease, Creatinine 2.8 at baseline, CKD 4 Suspected underlying diabetic nephropathy, heavy proteinuria in the past She has required intermittent dialysis this admission both for fluid removal and post cardiac catheterization HD initiated 04/22 Dialyzed yesterday, 2.5L UF Monitor electrolytes and renal function. She is non oliguric It is possible that she has reached ESRD, but it remains to be determined. Continue to monitor UOP and potential for recovery. Continue Bumex BID, change to PO route Attempt to taper steroids Next HD Tomorrow if needed. (2) NSTEMI (non-ST elevated myocardial infarction) ICD Codes: I21.4 - Non-ST elevation (NSTEMI) myocardial infarction Status: Acute Plan: Cardiology is following Has had 2 catheterizations this admission Repeat Cath postponed due to anemia. Medical management recommended. 2D echo: LVH, EF 45-50% On Brilinta (3) DM2 (diabetes mellitus, type 2) ICD Codes: E11.9 - Type 2 diabetes mellitus without complications Status: Chronic Plan: Insulin as needed to maintain glucose of 140-180 mg/dL while hospitalized (4) Metabolic bone disease ICD Codes: E88.9 - Metabolic disorder, unspecified; M90.80 - Osteopathy in diseases classified elsewhere, unspecified site Plan: Continue Calcium acetate On calcitriol for secondary hyperparathyroidism (5) Metabolic acidosis ICD Codes: E87.2 - Acidosis Status: Acute Plan: Corrected Follow metabolic profile (6) COPD with acute exacerbation ICD Codes: J44.1 - Chronic obstructive pulmonary disease with (acute) exacerbation Plan: On nebulizers, oxygen She is also on Levaquin and solumedrol (7) Anemia ICD Codes: D64.9 - Anemia, unspecified Status: Acute Plan: she received 2 units previously. Monitor Hb Repeat CT abd/pelvis confirmed hematoma Ordered Venofer. Start epogen with HD She had colonoscopy without overt bleeding (8) Hyperkalemia ICD Codes: E87.5 - Hyperkalemia; N18.9 - Chronic kidney disease, unspecified Status: Resolved Plan: Due to reduction in GFR and metabolic acidosis Improved with dialysis, monitor for recurrence (Cris Telles) Plan patient was seen and examined. Unclear if she has reached ESRD. She is non oliguric. Monitor urine output and and electrolytes. Give her a dose of Procrit. May need PermCath. (Fantasma Corral MD) Problem Qualifiers (1) Acute on chronic kidney failure: Qualified Codes: N17.9 - Acute kidney failure, unspecified; N18.9 - Chronic kidney disease, unspecified (2) DM2 (diabetes mellitus, type 2): (3) Anemia: Qualified Codes: D64.9 - Anemia, unspecified Cris Telles May 08, 2017 10:14 Fantasma Corral MD May 08, 2017 10:43
[2017-05-08] MEDS ORDERED: EPOETIN ALFA 10,000 UNITS/ML VIAL IV PUSH PRN (10:30)
[2017-05-08] MEDS ORDERED: EPOETIN ALFA 20,000 UNITS/ML VIAL SQ ONE (14:00)
--- NOTE | 2017-05-08 15:51 | HHI.DCPOC ---
Discharge Care Plan Diagnosis: (1) Anemia (2) Acute on chronic kidney failure (3) NSTEMI (non-ST elevated myocardial infarction) (4) DM2 (diabetes mellitus, type 2) (5) HTN (hypertension) Goals to Promote Your Health * To prevent worsening of your condition and complications * To maintain your health at the optimal level Directions to Meet Your Goals Take your medications as prescribed Follow your dietary instruction Follow activity as directed Keep your appointments as scheduled Take your immunizations and boosters as scheduled If your symptoms worsen call your PCP, if no PCP go to Urgent Care Center or Emergency Room Smoking is Dangerous to Your Health. Avoid second hand smoke Call the 24-hour hour crisis hotline for domestic abuse at Eric Stevenson MD, R3 May 08, 2017 15:51
[2017-05-08] MEDS ORDERED: PERI PO (16:13)
[2017-05-08] MEDS ORDERED: BRIL90TA PO (16:13)
[2017-05-08] MEDS ORDERED: METO10TA PO (16:13)
[2017-05-08] MEDS ORDERED: PANT40TA3 PO (16:13)
[2017-05-08] MEDS ORDERED: POLY17S PO (16:13)
[2017-05-08] MEDS ORDERED: CALC667C PO (16:13)
[2017-05-08] MEDS ORDERED: LIPI10TA PO (16:13)
[2017-05-08] MEDS ORDERED: CARV3.125 PO (16:13)
[2017-05-08] MEDS ORDERED: THERTAB15 PO (16:13)
[2017-05-08] MEDS ORDERED: CALC.25 PO (16:13)
[2017-05-08] MEDS ORDERED: Albuterol-Ipratropium Neb INH (16:13)
[2017-05-08] MEDS ORDERED: LEVEMIR SQ (16:13)
[2017-05-08] MEDS ORDERED: OXYC1TAB63 PO (16:13)
[2017-05-08] MEDS ORDERED: BUME1TAB PO (16:13)
[2017-05-08] MEDS ORDERED: WHEEMIS3 (16:15)
[2017-05-08] MEDS ORDERED: WALKER GLIDE WH1 MI1 (16:15)
[2017-05-08] MEDS ORDERED: BEDSIDE COMMODE1 MI1 (16:15)
[2017-05-08] MEDS ORDERED: PRED20 PO (16:31)
[2017-05-08] MEDS ORDERED: PRED10 PO (16:31)
[2017-05-08] MEDS: BUMETANIDE 1 MG TAB PO SCH (17:20)
--- NOTE | 2017-05-08 19:21 | PD.CARD.PN ---
Subjective Subjective Remarks Patient was seen around 10am, late entry note No chest pain/SOB, sitting up in the bed feeling well No events over the weekend Objective Medications Current Medications Medications (Trade) Dose Ordered Sig/Des Route Start Time Stop Time Status Last Admin (Duoneb Neb) 1 ampule Q4HR NEB PRN INH 04/21/17 06:45 Miscellaneous Information 1 Q361D XX 04/21/17 06:45 (Chlorhexidine 2% Cloth) Taper DAILY@04 TOP 04/22/17 04:00 04/18/18 03:59 04/27/17 00:35 (Chlorhexidine 2% Cloth) 3 pack UNSCH PRN TOP 04/21/17 06:45 (Malaika-Colace) 1 tab BID PO 04/21/17 09:00 05/08/17 08:29 (Milk Of Magnesia Liq) 30 ml Q12H PRN PO 04/21/17 06:45 (Senokot) 17.2 mg Q12H PRN PO 04/21/17 06:45 05/02/17 12:22 (Dulcolax Supp) 10 mg DAILY PRN RECTAL 04/21/17 06:45 05/03/17 14:10 (Lactulose Liq) 30 ml DAILY PRN PO 04/21/17 06:45 05/03/17 17:30 (Aspirin Chew) 81 mg DAILY CHEW 04/22/17 09:00 05/08/17 08:32 (Coreg) 3.125 mg Q12HR PO 04/21/17 09:00 Future hold 05/08/17 08:30 (Lipitor) 10 mg HS PO 04/21/17 21:00 05/07/17 21:50 (Vitamin B12) 500 mcg DAILY PO 04/21/17 09:00 05/08/17 08:31 (Synthroid) 50 mcg DAILY@0600 PO 04/21/17 07:00 05/08/17 05:04 (Restoril) 15 mg HS PRN PO 04/21/17 20:45 05/08/17 00:14 Sodium Chloride 1,000 ml @ 0 mls/hr Q0M PRN OTHER 04/22/17 14:04 05/07/17 11:34 (Heparin Inj) 8,000 units UNSCH PRN IV FLUSH 04/22/17 14:15 05/03/17 11:17 Sodium Chloride 1,000 ml @ 200 mls/hr Q5H PRN IV 04/22/17 14:04 Sodium Chloride 1,000 ml @ 0 mls/hr Q0M PRN OTHER 04/22/17 14:04 (Mannitol Inj) 12.5 gm UNSCH PRN IV 04/22/17 14:15 Albumin Human 100 ml @ 60 mls/hr UNSCH PRN IV 04/22/17 14:15 05/03/17 11:17 (NS Flush) 5 ml UNSCH PRN IV FLUSH 04/22/17 14:15 05/07/17 11:35 (Heparin Inj) UNSCH PRN .XX 04/22/17 14:15 05/05/17 11:09 (Gentamicin (Dialysis) Inj) 20 mg UNSCH PRN OTHER 04/22/17 14:15 05/07/17 11:36 (Zofran Inj) 4 mg UNSCH PRN IV PUSH 04/22/17 14:15 (Tylenol) 650 mg UNSCH PRN PO 04/22/17 14:15 04/25/17 12:21 (Benadryl) 25 mg UNSCH PRN PO 04/22/17 14:15 (Nitrostat Sl) 0.4 mg UNSCH PRN SL 04/22/17 14:15 (Catapres) 0.1 mg UNSCH PRN PO 04/22/17 14:15 04/27/17 22:31 (Gelfoam 12 Mm/7 Mm Top) 1 foam UNSCH PRN TOP 04/22/17 14:15 (Apresoline Inj) 10 mg Q30M PRN IV PUSH 04/23/17 13:15 05/04/17 23:51 (Phoslo) 2,001 mg TID PO 04/23/17 18:00 05/08/17 17:20 (Rocaltrol) 0.25 mcg DAILY PO 04/24/17 09:15 05/08/17 08:29 (Atropine Inj) 0.5 mg UNSCH PRN IV PUSH 04/24/17 10:00 (NS Flush) 2 ml BID IV FLUSH 04/24/17 21:00 05/08/17 09:13 (NS Flush) 2 ml UNSCH PRN IV FLUSH 04/24/17 15:45 05/07/17 18:35 (D50w (Vial) Inj) 50 ml UNSCH PRN IV PUSH 04/24/17 15:45 (Morphine Inj) 2 mg Q3H PRN IV PUSH 04/26/17 09:30 04/29/17 13:33 (Brilinta) 90 mg BID PO 04/29/17 09:00 05/08/17 08:31 (Percocet 5-325 Mg) 1 tab Q4H PRN PO 04/29/17 13:30 05/08/17 16:12 (Percocet 10-325 Mg) 1 tab Q4H PRN PO 04/29/17 13:30 05/07/17 21:50 (NovoLOG SUPPLEMENTAL SCALE) 1 ACHS SQ 04/30/17 21:00 05/08/17 17:27 (Levemir Inj) 5 units Q12HR SQ 04/30/17 21:00 05/08/17 08:35 (Glucagon Inj) 1 mg UNSCH PRN OTHER 04/30/17 18:15 (Protonix) 40 mg DAILY PO 05/01/17 12:30 05/08/17 08:30 (Reglan) 5 mg BIDAC PO 05/01/17 12:15 05/08/17 16:05 (Miralax) 17 gm DAILY PO 05/05/17 15:00 05/07/17 12:45 (SoluMEDROL INJ) 30 mg Q12HR IV PUSH 05/06/17 21:00 05/08/17 08:35 (Bumetanide) 2 mg BID@,18 PO 05/08/17 18:00 05/08/17 17:20 (Epogen Inj) 10,000 units UNSCH PRN IV PUSH 05/08/17 10:30 (Theragran) 1 tab DAILY PO 05/09/17 09:00 Vital Signs / I&O Vital Signs Date Time Temp Pulse Resp B/P (MAP) Pulse Ox O2 Delivery O2 Flow Rate FiO2 05/08/17 17:00 76 05/08/17 16:00 82 05/08/17 15:00 79 05/08/17 15:00 97.0 84 18 140/70 (93) 98 05/08/17 14:00 84 05/08/17 13:00 72 05/08/17 12:00 72 05/08/17 11:00 73 05/08/17 11:00 97.8 72 18 135/71 (92) 96 05/08/17 10:00 88 05/08/17 09:00 86 05/08/17 08:00 82 05/08/17 08:00 98.2 78 17 133/69 (90) 98 05/08/17 07:00 104 05/08/17 06:15 75 05/08/17 05:54 77 05/08/17 04:36 76 05/08/17 03:30 76 05/08/17 03:20 97.9 76 16 152/78 (102) 96 05/08/17 02:15 80 05/08/17 01:16 76 05/08/17 00:29 78 05/07/17 23:59 80 05/07/17 23:15 98.0 79 17 152/71 (98) 96 05/07/17 22:15 84 05/07/17 21:00 86 05/07/17 20:00 82 05/07/17 19:30 89 05/07/17 19:25 98.2 86 16 139/63 (88) 97 I/O 05/07/17 05/07/17 05/07/17 05/08/17 05/08/17 05/08/17 07:00 15:00 23:00 07:00 15:00 23:00 Intake Total 240 ml 940 ml 240 ml 540 ml Output Total 1500 ml 2500 ml 850 ml 600 ml 1150 ml Balance -1260 ml -2500 ml 90 ml -360 ml -610 ml Intake Oral 240 ml 840 ml 240 ml 540 ml IV Total 100 ml Output Urine Total 1500 ml 850 ml 600 ml 1150 ml Hemodialysis 2500 ml # Bowel Movements 0 0 2 Physical Exam GENERAL: NAD, AAOx3 SKIN: Warm and dry. HEAD: Atraumatic. Normocephalic. EYES: Pupils equal and round. No scleral icterus. No injection or drainage. ENT: No nasal bleeding or discharge. Mucous membranes pink and moist. NECK: Trachea midline. No JVD. CARDIOVASCULAR: Regular rate and rhythm. RESPIRATORY: No accessory muscle use. Clear to auscultation. Breath sounds equal bilaterally. GASTROINTESTINAL: Abdomen soft, non-tender, nondistended. Hepatic and splenic margins not palpable. MUSCULOSKELETAL: Extremities without clubbing, cyanosis, or edema. No obvious deformities. Right abdominal wall with large ecchymosis layering out, left femoral no hematoma/bruit NEUROLOGICAL: Awake and alert. No obvious cranial nerve deficits. Motor grossly within normal limits. Five out of 5 muscle strength in the arms and legs. Normal speech. PSYCHIATRIC: Appropriate mood and affect; insight and judgment normal. Laboratory Laboratory Tests Test 05/08/17 06:30 White Blood Count 16.3 TH/MM3 Red Blood Count 3.51 MIL/MM3 Hemoglobin 10.1 GM/DL Hematocrit 30.9 % Mean Corpuscular Volume 88.0 FL Mean Corpuscular Hemoglobin 28.8 PG Mean Corpuscular Hemoglobin Concent 32.7 % Red Cell Distribution Width 17.5 % Platelet Count 115 TH/MM3 Mean Platelet Volume 8.8 FL Neutrophils (%) (Auto) 93.0 % Lymphocytes (%) (Auto) 1.8 % Monocytes (%) (Auto) 5.1 % Eosinophils (%) (Auto) 0.0 % Basophils (%) (Auto) 0.1 % Neutrophils # (Auto) 15.2 TH/MM3 Lymphocytes # (Auto) 0.3 TH/MM3 Monocytes # (Auto) 0.8 TH/MM3 Eosinophils # (Auto) 0.0 TH/MM3 Basophils # (Auto) 0.0 TH/MM3 CBC Comment DIFF FINAL Differential Comment Activated Partial Thromboplast Time 24.9 SEC Blood Urea Nitrogen 68 MG/DL Creatinine 3.18 MG/DL Random Glucose 226 MG/DL Calcium Level 8.0 MG/DL Sodium Level 135 MEQ/L Potassium Level 4.6 MEQ/L Chloride Level 95 MEQ/L Carbon Dioxide Level 30.8 MEQ/L Anion Gap 9 MEQ/L Estimat Glomerular Filtration Rate 15 ML/MIN Assessment and Plan Problem List: (1) NSTEMI (non-ST elevated myocardial infarction) ICD Codes: I21.4 - Non-ST elevation (NSTEMI) myocardial infarction Status: Acute (2) Acute on chronic kidney failure ICD Codes: N17.9 - Acute kidney failure, unspecified; N18.9 - Chronic kidney disease, unspecified Status: Acute (3) HTN (hypertension) ICD Codes: I10 - HTN (hypertension) Status: Chronic (4) HLD (hyperlipidemia) ICD Codes: E78.5 - HLD (hyperlipidemia) Status: Chronic (5) Anemia ICD Codes: D64.9 - Anemia, unspecified Status: Acute (6) Tobacco abuse counseling ICD Codes: Z71.6 - Tobacco abuse counseling Assessment and Plan 1) NSTEMI/CAD Multivessel CAD ASA/BB/Statin/Brilinta Turned down for CABG s/p PCI of LCX with DESx2 (mid 2.5x22, distal 2.25x15 overlapped), PCI OM1 with ROMAN (2.25x18) Will plan for medical management of LAD as had multiple episodes of drop in Hgb 2) LEEANN on CKD HD started Still making urine with increased output Attempt to decrease nephrotoxin medications (contrast) if possible, not sure if chronic yet 3) Anemia Hgb mostly stable Nephrology to start Epogen Drop in Hgb may be partially due to fluid overload inbetween HD sessions Continue to follow for now 4) Discussed with primary team Ok for rehab from a cardiovascular standpoint Problem Qualifiers (1) Acute on chronic kidney failure: Qualified Codes: N17.9 - Acute kidney failure, unspecified; N18.9 - Chronic kidney disease, unspecified (2) HTN (hypertension): Qualified Codes: I10 - Essential (primary) hypertension (3) HLD (hyperlipidemia): Qualified Codes: E78.5 - Hyperlipidemia, unspecified (4) Anemia: Qualified Codes: D64.9 - Anemia, unspecified Hemanth Cole DO May 08, 2017 19:21
[2017-05-08] MEDS: ATORVASTATIN 10 MG TAB PO SCH (22:27)
[2017-05-09] VITALS (10 sets, daily range): BP systolic 142–147; BP diastolic 76–78; PULSE 72–80; RESP 16–18; TEMP 97.5–98.3; O2SAT 98–100
[2017-05-09 06:46] LABS: HEMATOCRIT 30.2 % (35.0-46.0); MEAN CELL VOLUME 88.5 FL (80.0-100.0); MEAN CORPUSCULAR HEMOGLOBIN 29.4 PG (27.0-34.0); MEAN CORPUSCULAR HGB CONC 33.2 % (32.0-36.0); PLATELET COUNT 101 TH/MM3 (150-450); RED BLOOD COUNT 3.41 MIL/MM3 (4.00-5.30); RED CELL DISTRIBUTION WIDTH 17.9 % (11.6-17.2); REVIEW FLAG FINAL
[2017-05-09 07:13] LABS: BICARBONATE 28.2 MEQ/L (21.0-32.0); POTASSIUM 4.8 MEQ/L (3.5-5.1)
[2017-05-09 07:21] LABS: APTT (PATIENT) 22.9 SEC (24.3-30.1)
[2017-05-09] MEDS: LEVOTHYROXINE SODIUM 50 MCG TAB PO SCH (07:47)
[2017-05-09] MEDS: METOCLOPRAMIDE HCL 10 MG TAB PO SCH (07:47)
[2017-05-09] MEDS: INSULIN ASPART SUPPLEMENTAL SCALE SQ SCH ×2 (08:00→12:36)
[2017-05-09] MEDS: POLYETHYLENE GLYCOL 17 GM PKG PO SCH (09:00)
[2017-05-09] MEDS ORDERED: MULTIVITAMIN TAB PO SCH (09:00)
[2017-05-09] MEDS: SODIUM CHLORIDE 0.9% FLUSH 10 ML FLUSH IV FLUSH SCH (09:00)
--- NOTE | 2017-05-09 09:19 | HHI.NPPN ---
Subjective General Problems: Anemia, Edema Renal Failure: Chronic, Acute, Stage IV Interval History Seen during dialysis. [facility] Minimal edema. Non oliguric but BUN is higher. (Cris Telles) Review of Systems General Constitutional: Fatigue (Cris Telles) Cardiovascular Cardiac: Edema (Cris Telles) Objective Data Data 05/09/17 05/10/17 19:00 07:00 Intake Total 240 ml Balance 240 ml Intake Oral 240 ml # Voids 2 # Bowel Movements 1 Vital Signs Date Time Temp Pulse Resp B/P (MAP) Pulse Ox O2 Delivery O2 Flow Rate FiO2 05/09/17 07:30 72 05/09/17 07:02 98.3 80 18 147/76 (99) 100 05/09/17 06:00 76 05/09/17 05:00 78 05/09/17 04:00 78 05/09/17 03:00 74 05/09/17 03:00 79 16 147/76 (99) 98 05/09/17 02:00 72 05/09/17 01:00 72 05/09/17 00:30 16 05/09/17 00:00 76 05/08/17 23:00 76 14 148/77 (100) 97 05/08/17 23:00 72 05/08/17 22:00 74 05/08/17 21:00 80 05/08/17 20:00 98.3 76 16 150/69 (96) 98 05/08/17 20:00 74 05/08/17 19:00 82 05/08/17 18:00 96 05/08/17 17:00 76 05/08/17 16:00 82 05/08/17 15:00 79 05/08/17 15:00 97.0 84 18 140/70 (93) 98 05/08/17 14:00 84 05/08/17 13:00 72 05/08/17 12:00 72 05/08/17 11:00 73 05/08/17 11:00 97.8 72 18 135/71 (92) 96 05/08/17 10:00 88 (Cris Telles) -: 05/09/17 0636 05/09/17 0633 Tubes & Lines: Vas-Cath (Cris Telles) Physical Exam General Appearance: Well Developed, Well Nourished, No Acute Distress, Comfortable (Cris Telles) Eyes Eye Exam: Pupils Equal, Pupils Reactive (Cris Telles GRAIN OILSEED OR PASTURE GROWER) Throat Throat Exam: Oral Mucosa [place] & Moist (Cris Telles GRAIN OILSEED OR PASTURE GROWER) Neck Neck Exam: Neck Supple (Cris Telles) Pulmonary Resp Exam: Breath Sounds Equal, No Distress, Decreased Bases, Diminished Breath Sounds (Cris Telles GRAIN OILSEED OR PASTURE GROWER) Cardiology CV Exam: Regular, Normal Sinus Rhythm, Good Perfusion (Cris TellesP) Gastrointestinal/Abdomen GI Exam: Soft, Non-Tender, Bowel Sounds Present GI Remarks RLQ ecchymosis (Cris Telles GRAIN OILSEED OR PASTURE GROWER) Genitourinary Exam: Clear Urine (Cris Telles) Musculoskeletal MS Exam: Joints Intact, Normal Tone, Good Strength (Cris Telles) Integumentary Skin Exam: Clear, Warm, Dry, Intact (Cris Telles) Extremeties Extremities Exam: Pedal Pulses Palpable, Trace Edema, Pitting Edema (Cris Telles) Neurologic Neuro Exam: Alert, Awake, Oriented, Speech Clear, Moving All Extremities (Cris Telles) Psychiatric Psych Exam: Appropriate Responses (Cris Telles) Assessment/Plan Discussed Condition With: Patient, Daughter Assessment Summary: LEEANN/Acute Renal Failure, [place] Hyperparathyroid, Fluid/ Volume Overload, Proteinuria, Hypertension, Diabetes Mellitus, CKD Stage IV Electrolyte Assessment: Hypocalcemia Problem List: (1) Acute on chronic kidney failure ICD Codes: N17.9 - Acute kidney failure, unspecified; N18.9 - Chronic kidney disease, unspecified Status: Acute Plan: She has advanced renal disease, Creatinine 2.8 at baseline, CKD 4 Suspected underlying diabetic nephropathy, heavy proteinuria in the past She has required intermittent dialysis this admission both for fluid removal and post cardiac catheterization HD initiated 04/22 BUN is higher today, may be due to steroids Seen today on a 2K, 350 BFR, goal 2L Repeat labs daily. It seems she may require intermediate card tender HD but currently has not been deemed ESRD Will need PermCath placement Monitor electrolytes and renal function. She is non oliguric Continue to monitor UOP and potential for recovery. Continue Bumex BID PO Avoid IVF, nephrotoxins (2) NSTEMI (non-ST elevated myocardial infarction) ICD Codes: I21.4 - Non-ST elevation (NSTEMI) myocardial infarction Status: Acute Plan: Cardiology has followed Has had 2 catheterizations this admission Repeat Cath postponed due to anemia. Medical management recommended. 2D echo: LVH, EF 45-50% On Brilinta (3) DM2 (diabetes mellitus, type 2) ICD Codes: E11.9 - Type 2 diabetes mellitus without complications Status: Chronic Plan: Insulin as needed to maintain glucose of 140-180 mg/dL while hospitalized (4) Metabolic bone disease ICD Codes: E88.9 - Metabolic disorder, unspecified; M90.80 - Osteopathy in diseases classified elsewhere, unspecified site Plan: Continue Calcium acetate , dosage reduced On calcitriol for secondary hyperparathyroidism (5) Metabolic acidosis ICD Codes: E87.2 - Acidosis Status: Acute Plan: Corrected Follow metabolic profile (6) COPD with acute exacerbation ICD Codes: J44.1 - Chronic obstructive pulmonary disease with (acute) exacerbation Plan: On nebulizers, oxygen She is also on Levaquin and solumedrol (7) Anemia ICD Codes: D64.9 - Anemia, unspecified Status: Acute Plan: she received 2 units previously. Monitor Hb Epogen started; given venofer Repeat CT abd/pelvis confirmed hematoma (8) Hyperkalemia ICD Codes: E87.5 - Hyperkalemia; N18.9 - Chronic kidney disease, unspecified Status: Resolved Plan: Due to reduction in GFR and metabolic acidosis Improved with dialysis, monitor for recurrence Plan p (Cris Telles) Plan patient was seen and examined. Agree with above assessment and plan. Renal function is worse, seen during dialysis. Needs PermCath. Consider tapering off Methyl prednisone. (Fnatasma Corral MD) Problem Qualifiers (1) Acute on chronic kidney failure: Qualified Codes: N17.9 - Acute kidney failure, unspecified; N18.9 - Chronic kidney disease, unspecified (2) DM2 (diabetes mellitus, type 2): (3) Anemia: Qualified Codes: D64.9 - Anemia, unspecified Cris Telles May 09, 2017 09:19 Fantasma Corral MD May 09, 2017 10:36
[2017-05-09] MEDS: GENTAMICIN SULFATE (DIALYSIS USE ONLY) 20 MG/2 ML VIAL OTHER PRN (11:01)
[2017-05-09] MEDS: HEPARIN SODIUM - IV 10,000 UNITS/10 ML VIAL PRN (11:01)
--- NOTE | 2017-05-09 12:20 | HHI.FPPN ---
Subjective Remarks Mrs. Alicia was afebrile with stable vital signs overnight. Patient was seen after receiving dialysis today; she reports that she is doing well and does not have current complaints. No chest pain or shortness of breath. Patient reports normal urination and bowel movements. Per EMR, patient had 2000ml dialysis output today. (Eric Stevenson MD, R3) Objective Vitals Vital Signs Date Time Temp Pulse Resp B/P (MAP) Pulse Ox O2 Delivery O2 Flow Rate FiO2 05/09/17 07:30 72 05/09/17 07:02 98.3 80 18 147/76 (99) 100 05/09/17 06:00 76 05/09/17 05:00 78 05/09/17 04:00 78 05/09/17 03:00 74 05/09/17 03:00 79 16 147/76 (99) 98 05/09/17 02:00 72 05/09/17 01:00 72 05/09/17 00:30 16 05/09/17 00:00 76 05/08/17 23:00 76 14 148/77 (100) 97 05/08/17 23:00 72 05/08/17 22:00 74 05/08/17 21:00 80 05/08/17 20:00 98.3 76 16 150/69 (96) 98 05/08/17 20:00 74 05/08/17 19:00 82 05/08/17 18:00 96 05/08/17 17:00 76 05/08/17 16:00 82 05/08/17 15:00 79 05/08/17 15:00 97.0 84 18 140/70 (93) 98 05/08/17 14:00 84 05/08/17 13:00 72 I/O 05/08/17 05/08/17 05/08/17 05/09/17 05/09/17 05/09/17 07:00 15:00 23:00 07:00 15:00 23:00 Intake Total 240 ml 540 ml 240 ml Output Total 600 ml 1150 ml 2000 ml Balance -360 ml -610 ml -1760 ml Intake Oral 240 ml 540 ml 240 ml Output Urine Total 600 ml 1150 ml Hemodialysis 2000 ml # Voids 2 # Bowel Movements 0 2 1 (Eric Stevenson MD, R3) Result Diagram: 05/09/17 0636 05/09/17 0633 Imaging Last Impressions Carotid Artery Ultrasound 05/02/17 0000 Signed Impressions: Service Date/Time: Tuesday, May 02, 2017 12:26 - CONCLUSION: 1. Moderate calcified plaque in the left carotid bulb and proximal internal carotid artery with estimated 50-69%% stenosis based on velocity measurements. 2. The right carotid system is not evaluated since it was obscured by a central line. Keegan Santos MD Abdomen/Pelvis CT 04/29/17 0000 Signed Impressions: Service Date/Time: Saturday, April 29, 2017 10:38 - CONCLUSION: 1. Stable large right groin hematoma. 2. Vicarious excretion of contrast by the gallbladder and persistent contrast opacification of the kidneys characteristic of renal insufficiency. 3. Colonic diverticulosis without evidence of active inflammatory changes. 4. No evidence of acute process in the abdomen or pelvis. Reuben Carr MD Catheter Placement X-Ray 04/28/17 0000 Signed Impressions: Service Date/Time: Friday, April 28, 2017 16:14 - CONCLUSION: Uncomplicated venous catheter change as above. Stoney Morrow MD Lower Extremity Ultrasound 04/26/17 0000 Signed Impressions: Service Date/Time: Wednesday, April 26, 2017 14:24 - CONCLUSION: Large groin hematoma. No evidence of pseudoaneurysm Keegan Cedeno MD Chest X-Ray 04/22/17 0600 Signed Impressions: Service Date/Time: Saturday, April 22, 2017 02:19 - CONCLUSION: No acute cardiopulmonary disease identified. Trevor Townsend MD Renal Ultrasound 04/21/17 0000 Signed Impressions: Service Date/Time: Friday, April 21, 2017 17:11 - CONCLUSION: Stone in the lateral left kidney. No evidence of hydronephrosis or solid mass. No evidence of obstruction. Kirill Linder MD Objective Remarks General: Resting in bed in no acute distress Skin: Warm and dry. HEENT: EOM grossly I CV: Regular rate and rhythm without murmurs. Normal peripheral perfusion. Minimcal to no LE edema Lungs: Normal rate. decreased air movement without wheezing to auscultation Abdomen: Soft, nontender, non-distended with normal bowel sounds. MSK: Grossly normal ROM and motor function. No calf asymmetry or pain to palpation Neuro: Awake, alert. Grossly normal CN. No peripheral motor/sensory defects appreciated Procedures Vascath 04/22/17 Initiate hemodialysis 04/22/17 Catheterization and stent placement on 04/28/17 (Eric Stevenson MD, R3) A/P Assessment and Plan 61 yo female with NSTEMI, acute COPD exacerbation, acute renal failure with chronic renal disease requiring hemodialysis. Cardiology and nephrology on board ; receiving dialysis. 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 Patient will be managed medically with follow-up with Cardiology. Discussed with Dr. Tsang Discharge Planning Planned discharge today to [place] [facility] with planned Nephrology follow-up for dialysis. (Eric Stevenson MD, R3) Attending Attestation Patient seen and examined. Case reviewed and discussed with Dr Stevenson. Agree with plan of care as discussed with me and documented in the resident note. (Dina Tsang MD) Problem List: (1) NSTEMI (non-ST elevated myocardial infarction) ICD Codes: I21.4 - Non-ST elevation (NSTEMI) myocardial infarction Status: Acute Plan: Impression: Troponin elevated at admission along with atypical chest pain. Non-specific ST-T wave changes on initial EKG's. Patient initially placed on Heparin. 04/24/2017- Patient s/p Catheterization per Dr. Cole which demonstrated NSTEMI, multivessel coronary disease, new cardiomyopathy with EF 45-50% Heparin drip discontinued due to hematoma and anemia - Cardiology consulted -CV surgery initially consulted but decision made for stenting rather than CABG for multivessel disease due to renal failure and concern for poor surgical outcome -S/P cath/stenting 04/28 (L circumflex, obtuse marginal) -Postpone stenting due to persistent anemia; will manage medically - Continue DAPT with aspirin and Brillinta -Continue Lipitor 10 mg qHS, Coreg 3.125 mg bid -Hold RISSA/ARB (2) Acute on chronic kidney failure ICD Codes: N17.9 - Acute kidney failure, unspecified; N18.9 - Chronic kidney disease, unspecified Status: Acute Plan: 05/06: Cr 2.53 (05/05) <- 3.55 (05/04) 600ml urine output overnight; 2000ml removed with last dialysis 05/07: Cr 4.08 <- 3.90 (05/06) <- 2.53 (05/05). 2250ml urine output overnight 05/08: Cr 3.18 <- 4.08 (05/07). 1450ml urine output overnight. 2500ml removed via dialysis yesterday 05/09: Cr 3.96 <- 3.18 (05/08). 2000ml dialysis output today. Nephrology consulted -PRN Dialysis -last dialysis 05/09, with 2000ml removal -Monitor electrolytes -Continue Bumex 2mg IV BID -Continue to monitor urine output, electrolytes - Avoid nephrotoxic agents, contrast agents Impression: Has a history of diabetes with diabetic nephropathy. Has proteinuria and oliguria with acute decrease in renal function. Her baseline creatinine is about 2.8, now with doubling of creatinine. Also with hyperkalemia and metabolic acidosis. Etiology includes chronic kidney disease with acute exacerbation possibly from poor cardiac output with NSTEMI. Renal ultrasound showing no obstruction, has stone that is non-obstructing Complement negative MIGUE negative, SPEP, urine immunofixation normal Hepatitis profile negative (3) Anemia ICD Codes: D64.9 - Anemia, unspecified Status: Acute Plan: 05/09: Hgb 10 <- 10.1 (05/08) <- 10.5 (05/07) <- 11 (05/06) <- 11.4 ( S/P 2 U pRBC 05/04) <- 6.9 (05/04) -Continue to monitor H/H and transfuse as necessary: -Heparin as needed for procedures -GI consulted -VANGIE, PPI, monitor HH and supportive care -Planned colonoscopy today -Vascular surgery consulted -No surgical intervention needed at this time; follow RLE pulse checks and serial Hcts -Cleared from a vascular standpoint 04/27 Impression: Anemia in association with recent catheterization, R groin hematoma , positive Hemoccult on recent heparin treatment 04/26- CT abdomen and pelvis 04/26: Right inguinal and right lower quadrant abdominal wall hematoma measuring 8.8 cm. Subcutaneous inflammatory changes which extend into the mons pubis region. Bilateral flank edema. Nonacute findings include small left pleural effusion, severe atherosclerotic disease, and sigmoid diverticulosis. No pseudoaneurysm. 04/26: LE US- large groin hematoma; no evidence of pseudoaneurysm 04/29- Repeat CT abdomen and pelvis on 04/29: Unchanged from previous CT abdomen (4) COPD (chronic obstructive pulmonary disease) ICD Codes: J44.9 - Chronic obstructive pulmonary disease, unspecified Status: Chronic Plan: History of COPD with recent upper respiratory symptoms and acute exacerbation, recently diagnosed with pneumonia while on cruise ship and was started on azithromycin. -Continue to wean steroids (IV Solumedrol 60 mg q12hrs started 04/21) -Will wean ~q3 days- currently at 30mg IV BID; will transition to oral on discharge - DuoNebs q6hrs scheduled - O2 supplementation with target O2 90% Antibiotic History: Levaquin (04/22- 05/08) (5) Hyponatremia ICD Codes: E87.1 - Hypo-osmolality and hyponatremia Status: Resolved Plan: 05/09: Na 135 Hyponatremia with acute renal failure, asymptomatic, resolved at this time. - IV fluids per nephrology - Monitor electrolytes - Hemodialysis per nephrology (6) DM2 (diabetes mellitus, type 2) ICD Codes: E11.9 - Type 2 diabetes mellitus without complications Status: Chronic Plan: History of diabetes type II - Sliding scale insulin with glucose goal of 140-180 (7) HTN (hypertension) ICD Codes: I10 - HTN (hypertension) Status: Chronic Plan: Impression: Mild hypertension during hospitalization with SBP 140s-160 - Continue carvedilol 3.125mg BID (8) Hypothyroidism ICD Codes: E03.9 - Hypothyroidism, unspecified Status: Chronic Plan: Impression: TSH 04/23 of 0.682 - Levothyroxine 50 mcg daily (9) Constipation ICD Codes: K59.00 - Constipation, unspecified Status: Resolved Plan: Impression: Patient reports feelings of constipation -PRN oral bowel motility agents as needed (10) Secondary hyperparathyroidism (of renal origin) ICD Codes: N25.81 - Secondary hyperparathyroidism of renal origin Status: Acute Plan: Patient with secondary hyperparathyroidism with significantly elevated phosphate and low calcium. Intact PTH 364.5 1,25 OH Vit D 11 -Will plan to initiate supplementation after discharge - Dietary phosphate restriction to 900 mg/day -Consider PhosLo -Management per Nephrology (11) DVT Prophylaxis Status: Acute Plan: Heparin drip discontinued due to anemia/ suspected active bleeding Patient at high risk of thrombosis due to comorbidities but also has concern for continued Hgb decrease (12) Nutrition, metabolism, and development symptoms ICD Codes: R63.8 - Other symptoms and signs concerning food and fluid intake Status: Acute Plan: Heart healthy diet IV fluids PRN per nephrology Phosphate restriction 900 mg/day for hyperphosphatemia Hyponatremia, hyperkalemia initially Receiving dialysis per nephrology Acute renal failure with CKD, monitor renal function Protonix 40mg PO daily on steroids (Eric Stevenson MD, R3) Problem Qualifiers (1) Acute on chronic kidney failure: Qualified Codes: N17.9 - Acute kidney failure, unspecified; N18.9 - Chronic kidney disease, unspecified (2) Anemia: Qualified Codes: D64.9 - Anemia, unspecified (3) COPD (chronic obstructive pulmonary disease): (4) DM2 (diabetes mellitus, type 2): (5) HTN (hypertension): Qualified Codes: I10 - Essential (primary) hypertension (6) Hypothyroidism: Qualified Codes: E03.9 - Hypothyroidism, unspecified (7) Constipation: Qualified Codes: K59.00 - Constipation, unspecified Eric Stevenson MD, R3 May 09, 2017 12:19 Dina Tsang MD May 09, 2017 17:14
[2017-05-09] MEDS: BUMETANIDE 1 MG TAB PO SCH (12:37)
[2017-05-09] MEDS: ASPIRIN 81 MG CHEW TAB CHEW SCH (12:37)
[2017-05-09] MEDS: CARVEDILOL 3.125 MG TAB PO SCH (12:37)
[2017-05-09] MEDS: CALCITRIOL 0.25 MCG CAP PO SCH (12:38)
[2017-05-09] MEDS: TICAGRELOR 90 MG TAB PO SCH (12:38)
[2017-05-09] MEDS: CYANOCOBALAMIN 1,000 MCG TAB PO SCH (12:38)
[2017-05-09] MEDS: DOCUSATE SODIUM 50 MG/SENNA 8.6 MG TAB PO SCH (12:38)
[2017-05-09] MEDS: PANTOPRAZOLE SOD 40 MG DELAYED RELEASE TAB PO SCH (12:43)
[2017-05-09 13:00] LABS: PROTHROMBIN TIME - PATIENT 10.6 SEC (9.8-11.6)
[2017-05-09] MEDS ORDERED: CALCIUM ACETATE 667 MG CAP PO SCH (13:00)
[2017-05-09] MEDS ORDERED: FERR325T18 PO (13:50)
[2017-05-09] MEDS ORDERED: ASPI-516 CHEW (13:50)
--- NOTE | 2017-05-09 22:55 | PD.CARD.PN ---
Subjective Subjective Remarks Patient was seen around 8am, late entry note No chest pain/SOB, sitting up in the bed feeling well during HD Objective Medications Current Medications Methylprednisolone Sodium Succinate (SoluMEDROL INJ) 125 mg ONCE ONCE IV PUSH Last administered on 04/21/17 05:36; Start 04/21/17 at 04:30; Stop 04/21/17 at 04:31; Status DC Albuterol/ Ipratropium (Duoneb Neb) 1 ampule Q15M INH Last administered on 04/21 04:33; Start 04/21/17 at 04:30; Stop 04/21/17 at 05:01; Status DC Sodium Chloride 1,000 ml @ 999 mls/hr BOLUS ONCE IV Last administered on 04/21 05:36; Start 04/21/17 at 04:45; Stop 04/21/17 at 05:45; Status DC Ondansetron HCl (Zofran Inj) 4 mg ONCE ONCE IV PUSH Last administered on 05:37; Start 04/21/17 at 04:45; Stop 04/21/17 at 04:46; Status DC Ketorolac Tromethamine (Toradol Inj) 30 mg ONCE ONCE IV PUSH Last administered on 04/21/17 05:36; Start 04/21/17 at 04:45; Stop 04/21/17 at 04:46 ; Status DC Ondansetron HCl (Zofran Inj) 4 mg ONCE ONCE IV PUSH Last administered on 06:54; Start 04/21/17 at 05:30; Stop 04/21/17 at 05:31; Status DC Morphine Sulfate (Morphine Inj) 2 mg ONCE ONCE IV PUSH Last administered on 05:49; Start 04/21/17 at 05:45; Stop 04/21/17 at 05:46; Status DC Sodium Chloride (NS Flush) 2 ml BID IV FLUSH ; Start 04/21/17 at 09:00; Stop at 11:31; Status DC Sodium Chloride (NS Flush) 2 ml UNSCH PRN IV FLUSH FLUSH AFTER USING IV ACCESS ; Start 04/21/17 at 05:45; Stop 04/21/17 at 11:31; Status DC Heparin Sodium (Porcine) (Heparin Inj) 5,000 units UNSCH PRN IV PUSH APTT LESS THAN 25; Start 04/21/17 at 11:45; Stop 04/28/17 at 13:14; Status DC Heparin Sodium (Porcine) (Heparin Inj) 2,500 units UNSCH PRN IV PUSH APTT 25 TO 39; Start 04/21/17 at 11:45; Stop 04/28/17 at 13:14; Status DC Heparin Sodium/ Dextrose 250 ml @ 9 mls/hr TITRATE PRN IV Coagulation Management Last administered on 04/25/17 23:37; Start 04/21/17 at 05:45; Stop 04/28/17 at 13:14; Status DC Aspirin (Aspirin) 325 mg ONCE ONCE PO Last administered on 04/21/17 06:04; Start 04/21/17 at 06:00; Stop 04/21/17 at 06:01; Status DC Nitroglycerin/ Dextrose 250 ml @ 0 mls/hr TITRATE ONCE IV Last administered on 04/21/17 06:38; Start 04/21/17 at 06:15; Stop 04/21/17 at 06:16; Status DC Heparin Sodium (Porcine) (Heparin Inj) 4,000 units ONCE ONCE IV PUSH Last administered on 04/21/17 06:07; Start 04/21/17 at 06:15; Stop 04/21/17 at 06:16 ; Status DC Calcium Gluconate (Calcium Gluconate Inj) 1 gm ONCE ONCE SLOW IVP ; Start 04/21 at 06:45; Stop 04/21/17 at 06:48; Status DC Sodium Polystyrene Sulfonate (Kayexalate Liq) 15 gm ONCE ONCE PO ; Start at 06:45; Stop 04/21/17 at 06:48; Status DC Sodium Chloride (NS Flush) 2 ml UNSCH PRN IV FLUSH FLUSH AFTER USING IV ACCESS Last administered on 04/27/17 14:10; Start 04/21/17 at 06:45; Stop 04/30/17 at 18:10; Status DC Sodium Chloride (NS Flush) 2 ml BID IV FLUSH Last administered on 04/30/17 09 :05; Start 04/21/17 at 09:00; Stop 04/30/17 at 18:10; Status DC Pantoprazole Sodium (Protonix Inj) 40 mg DAILY IV PUSH Last administered on 08:48; Start 04/21/17 at 09:00; Stop 05/01/17 at 12:04; Status DC Albuterol/ Ipratropium (Duoneb Neb) 1 ampule Q6HR NEB INH Last administered on 04/24/17 21:11; Start 04/21/17 at 10:00; Stop 04/25/17 at 09:59; Status DC Albuterol/ Ipratropium (Duoneb Neb) 1 ampule Q4HR NEB PRN INH WHEEZING; Start 04/21/17 at 06:45; Stop 05/09/17 at 13:16; Status DC Miscellaneous Information 1 Q361D XX ; Start 04/21/17 at 06:45; Stop 05/09/17 at 13:16; Status DC Chlorhexidine Gluconate (Chlorhexidine 2% Cloth) Taper DAILY@04 TOP Last administered on 04/27/17 00:35; Start 04/22/17 at 04:00; Stop 05/09/17 at 13: 16; Status DC Chlorhexidine Gluconate (Chlorhexidine 2% Cloth) 3 pack UNSCH PRN TOP HYGIENIC CARE; Start 04/21/17 at 06:45; Stop 05/09/17 at 13:16; Status DC Senna/Docusate Sodium (Malaika-Colace) 1 tab BID PO Last administered on 12:38; Start 04/21/17 at 09:00; Stop 05/09/17 at 13:16; Status DC Magnesium Hydroxide (Milk Of Magnesia Liq) 30 ml Q12H PRN PO Mild constipation ; Start 04/21/17 at 06:45; Stop 05/09/17 at 13:16; Status DC Sennosides (Senokot) 17.2 mg Q12H PRN PO Moderate constipation Last administered on 05/02/17 12:22; Start 04/21/17 at 06:45; Stop 05/09/17 at 13: 16; Status DC Bisacodyl (Dulcolax Supp) 10 mg DAILY PRN RECTAL SEVERE CONSITIPATION Last administered on 05/03/17 14:10; Start 04/21/17 at 06:45; Stop 05/09/17 at 13: 16; Status DC Lactulose (Lactulose Liq) 30 ml DAILY PRN PO SEVERE CONSITIPATION Last administered on 05/03/17 17:30; Start 04/21/17 at 06:45; Stop 05/09/17 at 13: 16; Status DC Aspirin (Aspirin Chew) 81 mg DAILY CHEW Last administered on 05/09/17 12:37; Start 04/22/17 at 09:00; Stop 05/09/17 at 13:16; Status DC Carvedilol (Coreg) 3.125 mg Q12HR PO Last administered on 05/09/17 12:37; Start 04/21/17 at 09:00; Stop 05/09/17 at 13:16; Status DC Atorvastatin Calcium (Lipitor) 10 mg HS PO Last administered on 05/08/17 22: 27; Start 04/21/17 at 21:00; Stop 05/09/17 at 13:16; Status DC Sodium Chloride 1,000 ml @ 150 mls/hr Q6H40M IV ; Start 04/21/17 at 06:45; Stop 04/21/17 at 15:47; Status DC Sodium Chloride 1,000 ml @ 999 mls/hr BOLUS ONCE IV ; Start 04/21/17 at 06:45 ; Stop 04/21/17 at 07:45; Status DC Cyanocobalamin (Vitamin B12) 500 mcg DAILY PO Last administered on 05/09/17 12:38; Start 04/21/17 at 09:00; Stop 05/09/17 at 13:16; Status DC Levothyroxine Sodium (Synthroid) 50 mcg DAILY@0600 PO Last administered on 07:47; Start 04/21/17 at 07:00; Stop 05/09/17 at 13:16; Status DC Insulin Aspart (NovoLOG SUPPLEMENTAL SCALE) 1 Q4HR SQ Last administered on 17:54; Start 04/21/17 at 08:00; Stop 04/30/17 at 18:06; Status DC Methylprednisolone Sodium Succinate (SoluMEDROL INJ) 60 mg Q12HR IV PUSH Last administered on 05/02/17 08:31; Start 04/21/17 at 11:30; Stop 05/02/17 at 18: 11; Status DC Levofloxacin/ Dextrose 100 ml @ 100 mls/hr Q48H IV Last administered on 15:55; Start 04/21/17 at 12:00; Stop 05/08/17 at 11:10; Status DC Sodium Chloride 38.5 meq/Sodium Bicarbonate 100 meq/Sterile Water 1,109.625 ml @ 50 mls/hr [id number] IV Last administered on 04/23/17 12:57; Start 04/21/17 at 17:00; Stop 04/24/17 at 08:23; Status DC Temazepam (Restoril) 15 mg HS PRN PO Insomnia Last administered on 05/08/17 00:14; Start 04/21/17 at 20:45; Stop 05/09/17 at 13:16; Status DC Insulin Human Regular (NovoLIN R INJ) 10 units ONCE ONCE IV PUSH Last administered on 04/22/17 11:19; Start 04/22/17 at 10:00; Stop 04/22/17 at 10:01 ; Status DC Dextrose (D50w (Vial) Inj) 50 ml ONCE ONCE IV PUSH ; Start 04/22/17 at 09:15; Stop 04/22/17 at 09:16; Status Cancel Calcium Gluconate (Calcium Gluconate Inj) 1 gm ONCE ONCE IV PUSH ; Start at 09:15; Stop 04/22/17 at 09:16; Status Cancel Calcium Gluconate (Calcium Gluconate Inj) 1 gm ONCE ONCE IV PUSH Last administered on 04/22/17 11:18; Start 04/22/17 at 10:00; Stop 04/22/17 at 10:01 ; Status DC Dextrose (D50w (Vial) Inj) 50 ml ONCE ONCE IV PUSH Last administered on 11:18; Start 04/22/17 at 10:00; Stop 04/22/17 at 10:01; Status DC Sodium Polystyrene Sulfonate (Kayexalate Liq) 30 gm ONCE ONCE PO Last administered on 04/22/17 11:18; Start 04/22/17 at 10:00; Stop 04/22/17 at 10:11 ; Status DC Sodium Chloride 1,000 ml @ 0 mls/hr Q0M PRN OTHER For Prime & Rinse Back Last administered on 05/07/17 11:34; Start 04/22/17 at 14:04; Stop 05/09/17 at 13: 16; Status DC Heparin Sodium (Porcine) (Heparin Inj) 8,000 units UNSCH PRN IV FLUSH WITH DIALYSIS Last administered on 05/03/17 11:17; Start 04/22/17 at 14:15; Stop 05/09/17 at 13:16; Status DC Sodium Chloride 1,000 ml @ 200 mls/hr Q5H PRN IV WITH DIALYSIS Last administered on 05/09/17 11:01; Start 04/22/17 at 14:04; Stop 05/09/17 at 13: 16; Status DC Sodium Chloride 1,000 ml @ 0 mls/hr Q0M PRN OTHER WITH DIALYSIS; Start at 14:04; Stop 05/09/17 at 13:16; Status DC Mannitol (Mannitol Inj) 12.5 gm UNSCH PRN IV WITH DIALYSIS; Start 04/22/17 at 14:15; Stop 05/09/17 at 13:16; Status DC Albumin Human 100 ml @ 60 mls/hr UNSCH PRN IV WITH DIALYSIS Last administered on 05/03/17 11:17; Start 04/22/17 at 14:15; Stop 05/09/17 at 13:16; Status DC Sodium Chloride (NS Flush) 5 ml UNSCH PRN IV FLUSH WITH DIALYSIS Last administered on 05/07/17 11:35; Start 04/22/17 at 14:15; Stop 05/09/17 at 13: 16; Status DC Heparin Sodium (Porcine) (Heparin Inj) UNSCH PRN .XX WITH DIALYSIS Last administered on 05/09/17 11:01; Start 04/22/17 at 14:15; Stop 05/09/17 at 13: 16; Status DC Gentamicin Sulfate (Gentamicin (Dialysis) Inj) 20 mg UNSCH PRN OTHER WITH DIALYSIS Last administered on 05/09/17 11:01; Start 04/22/17 at 14:15; Stop 05/09/17 at 13:16; Status DC Ondansetron HCl (Zofran Inj) 4 mg UNSCH PRN IV PUSH WITH DIALYSIS; Start at 14:15; Stop 05/09/17 at 13:16; Status DC Acetaminophen (Tylenol) 650 mg UNSCH PRN PO for headach, pain, temp > 101F Last administered on 04/25/17 12:21; Start 04/22/17 at 14:15; Stop 05/09/17 at 13:16; Status DC Diphenhydramine HCl (Benadryl) 25 mg UNSCH PRN PO for hives/itching/anaphylaxis ; Start 04/22/17 at 14:15; Stop 05/09/17 at 13:16; Status DC Nitroglycerin (Nitrostat Sl) 0.4 mg UNSCH PRN SL CHEST PAIN; Start 04/22/17 at 14:15; Stop 05/09/17 at 13:16; Status DC Clonidine (Catapres) 0.1 mg UNSCH PRN PO for BP > 180/100 X 2 readings Last administered on 04/27/17 22:31; Start 04/22/17 at 14:15; Stop 05/09/17 at 13: 16; Status DC Gelatin (Gelfoam 12 Mm/7 Mm Top) 1 foam UNSCH PRN TOP SEE LABEL COMMENTS; Start 04/22/17 at 14:15; Stop 05/09/17 at 13:16; Status DC Morphine Sulfate (Morphine Inj) 2 mg STK-MED ONCE .ROUTE ; Start 04/22/17 at 14: 06; Stop 04/22/17 at 14:07; Status DC Lorazepam (Ativan Inj) 2 mg STK-MED ONCE .ROUTE ; Start 04/22/17 at 14:07; Stop 04/22/17 at 14:08; Status DC Morphine Sulfate (Morphine Inj) 2 mg NOW ONCE IV Last administered on 14:30; Start 04/22/17 at 14:30; Stop 04/22/17 at 14:31; Status DC Lorazepam (Ativan Inj) 1 mg NOW ONCE IV Last administered on 04/22/17 14:30; Start 04/22/17 at 14:30; Stop 04/22/17 at 14:31; Status DC Morphine Sulfate (Morphine Inj) 2 mg NOW ONCE IV ; Start 04/22/17 at 15:00; Stop 04/22/17 at 15:01; Status DC Hydralazine HCl (Apresoline Inj) 10 mg Q30M PRN IV PUSH SBP>180, DBP>100, HR> 65 Last administered on 05/04/17 23:51; Start 04/23/17 at 13:15; Stop at 13:16; Status DC Calcium Gluconate 1 gm/Dextrose 110 ml @ 110 mls/hr ONCE ONCE IV Last administered on 04/23/17 14:35; Start 04/23/17 at 14:00; Stop 04/23/17 at 14:59 ; Status DC Calcium Acetate (Phoslo) 2,001 mg TID PO Last administered on 05/08/17 17:20 ; Start 04/23/17 at 18:00; Stop 05/09/17 at 09:13; Status DC Sodium Chloride 1,000 ml @ 75 mls/hr [id number] IV Last administered on 23:47; Start 04/24/17 at 08:30; Stop 04/25/17 at 08:52; Status DC Calcitriol (Rocaltrol) 0.25 mcg DAILY PO Last administered on 05/09/17 12:38 ; Start 04/24/17 at 09:15; Stop 05/09/17 at 13:16; Status DC Midazolam HCl (Versed Inj) 2 mg STK-MED ONCE .ROUTE Last administered on 09:17; Start 04/24/17 at 09:08; Stop 04/24/17 at 09:09; Status DC Fentanyl Citrate (fentaNYL INJ) 100 mcg STK-MED ONCE .ROUTE Last administered on 04/24/17 09:16; Start 04/24/17 at 09:08; Stop 04/24/17 at 09:09; Status DC Atropine Sulfate (Atropine Inj) 0.5 mg UNSCH PRN IV PUSH VAGAL REPONSE; Start 04/24/17 at 10:00; Stop 05/09/17 at 13:16; Status DC Sodium Chloride 250 ml @ 500 mls/hr ONCE PRN IV VAGAL REPONSE; Start 04/24/17 at 10:00; Stop 04/25/17 at 09:59; Status DC Iohexol (OMNIPAQUE 350 INJ (Automatic Buffer)) 100 ml STK-MED ONCE OTHER ; Start at 10:23; Stop 04/24/17 at 10:26; Status DC Heparin Sodium/ Sodium Chloride 500 ml @ As Directed STK-MED ONCE .ROUTE Last administered on 04/24/17 10:16; Start 04/24/17 at 11:32; Stop 04/24/17 at 11:33 ; Status DC Sodium Chloride (NS Flush) 2 ml BID IV FLUSH Last administered on 05/08/17 21 :00; Start 04/24/17 at 21:00; Stop 05/09/17 at 13:16; Status DC Sodium Chloride (NS Flush) 2 ml UNSCH PRN IV FLUSH FLUSH AFTER USING IV ACCESS Last administered on 05/07/17 18:35; Start 04/24/17 at 15:45; Stop 05/09/17 at 13:16; Status DC Papaverine HCl 60 mg/Nitroglycerin 100 mcg/Diltiazem HCl 100 mg/Sodium Chloride 100 ml @ 0 mls/hr WASTE DISPOSAL LEAKAGE TESTER IRRIGATION ; Start 04/24/17 at 15:45; Stop 04/26/17 at 15:39; Status DC Cefazolin Sodium 500 mg/Sodium Chloride 505 ml @ 0 mls/hr WASTE DISPOSAL LEAKAGE TESTER IRRIGATION ; Start 04/24/17 at 15:45; Stop 04/26/17 at 15:39; Status DC Cefazolin Sodium/ Dextrose 50 ml @ 150 mls/hr WASTE DISPOSAL LEAKAGE TESTER IV ; Start 04/24/17 at 15:45; Stop 04/26/17 at 15:39; Status DC Metoprolol Tartrate (Lopressor) 12.5 mg WASTE DISPOSAL LEAKAGE TESTER PO ; Start 04/24/17 at 15:45; Stop 05/01/17 at 15:44; Status DC Chlorhexidine Gluconate (Hibiclens 4% Top Soln) 1 applic WASTE DISPOSAL LEAKAGE TESTER TOPICAL ; Start 04/24/17 at 15:45; Stop 05/01/17 at 15:44; Status DC Insulin Human Regular 100 units/ Sodium Chloride 100 ml @ 3 mls/hr TITRATE PRN IV for blood glucose control; Start 04/24/17 at 15:45; Stop 04/26/17 at 15:39; Status DC Dextrose (D50w (Vial) Inj) 50 ml UNSCH PRN IV PUSH HYPOGLYCEMIA-SEE COMMENTS; Start 04/24/17 at 15:45; Stop 05/09/17 at 13:16; Status DC Sodium Chloride 250 ml @ 15 mls/hr ONCE ONCE IV Last administered on 09:26; Start 04/25/17 at 08:45; Stop 04/26/17 at 01:24; Status DC Morphine Sulfate (Morphine Inj) 2 mg Q3H PRN IV PUSH BREAKTHROUGH PAIN Last administered on 04/29/17 13:33; Start 04/26/17 at 09:30; Stop 05/09/17 at 13: 16; Status DC Bumetanide (Bumex Inj) 2 mg BID@,18 IV PUSH Last administered on 05/08/17 08:34; Start 04/26/17 at 20:45; Stop 05/08/17 at 10:15; Status DC Heparin Sodium/ Sodium Chloride 500 ml @ As Directed STK-MED ONCE .ROUTE Last administered on 04/28/17 08:38; Start 04/28/17 at 08:38; Stop 04/28/17 at 08 :39; Status DC Midazolam HCl (Versed Inj) 2 mg STK-MED ONCE .ROUTE ; Start 04/28/17 at 08:38; Stop 04/28/17 at 08:39; Status DC Fentanyl Citrate (fentaNYL INJ) 100 mcg STK-MED ONCE .ROUTE Last administered on 04/28/17 09:10; Start 04/28/17 at 08:38; Stop 04/28/17 at 08:39; Status DC Heparin Sodium (Porcine) (Heparin Inj) 10,000 units STK-MED ONCE .ROUTE Last administered on 04/28/17 09:36; Start 04/28/17 at 08:38; Stop 04/28/17 at 08 :39; Status DC Nitroglycerin 5 ml @ As Directed STK-MED ONCE .ROUTE ; Start 04/28/17 at 08:38 ; Stop 04/28/17 at 08:39; Status DC Ticagrelor (Brilinta) 180 mg STK-MED ONCE PO Last administered on 04/28/17 12 :00; Start 04/28/17 at 11:30; Stop 04/28/17 at 11:31; Status DC Fentanyl Citrate (fentaNYL INJ) 100 mcg STK-MED ONCE .ROUTE Last administered on 04/28/17 11:38; Start 04/28/17 at 11:36; Stop 04/28/17 at 11:37; Status DC Ticagrelor (Brilinta) 90 mg BID PO Last administered on 05/09/17 12:38; Start 04/29/17 at 09:00; Stop 05/09/17 at 13:16; Status DC Miscellaneous Information 1 ONCE ONCE XX ; Start 04/28/17 at 12:30; Stop 04/04 at 13:13; Status DC Iohexol (OMNIPAQUE 350 INJ (Automatic Buffer)) 100 ml STK-MED ONCE OTHER ; Start at 13:16; Stop 04/28/17 at 13:17; Status DC Nitroglycerin/ Dextrose 250 ml @ As Directed STK-MED ONCE .ROUTE ; Start 04/28 at 13:38; Stop 04/28/17 at 13:39; Status DC Lorazepam (Ativan Inj) 2 mg STK-MED ONCE .ROUTE ; Start 04/28/17 at 15:11; Stop 04/28/17 at 15:12; Status DC Fentanyl Citrate (fentaNYL INJ) 100 mcg STK-MED ONCE .ROUTE Last administered on 04/28/17 15:12; Start 04/28/17 at 15:12; Stop 04/28/17 at 15:13; Status DC Heparin Sodium (Porcine) (*HEPARIN INJ Periprocedural ONLY) 10,000 units STK- MED ONCE .ROUTE Last administered on 04/28/17 15:40; Start 04/28/17 at 15:15 ; Stop 04/28/17 at 15:16; Status DC Oxycodone/ Acetaminophen (Percocet 5-325 Mg) 1 tab Q4H PRN PO PAIN SCALE 1 TO 5 Last administered on 05/08/17 23:27; Start 04/29/17 at 13:30; Stop at 13:16; Status DC Oxycodone/ Acetaminophen (Percocet 10-325 Mg) 1 tab Q4H PRN PO PAIN 6-10 Last administered on 05/07/17 21:50; Start 04/29/17 at 13:30; Stop 05/09/17 at 13 :16; Status DC Insulin Aspart (NovoLOG SUPPLEMENTAL SCALE) 1 ACHS SQ Last administered on 23:25; Start 04/30/17 at 21:00; Stop 05/09/17 at 13:16; Status DC Insulin Detemir (Levemir Inj) 5 units Q12HR SQ Last administered on 05/08/17 23:25; Start 04/30/17 at 21:00; Stop 05/09/17 at 13:16; Status DC Glucagon (Glucagon Inj) 1 mg UNSCH PRN OTHER HYPOGLYCEMIA-SEE COMMENTS; Start 04/30/17 at 18:15; Stop 05/09/17 at 13:16; Status DC Pantoprazole Sodium (Protonix) 40 mg DAILY PO Last administered on 05/09/17 12:43; Start 05/01/17 at 12:30; Stop 05/09/17 at 13:16; Status DC Metoclopramide HCl (Reglan) 5 mg BIDAC PO Last administered on 05/09/17 07:47 ; Start 05/01/17 at 12:15; Stop 05/09/17 at 13:16; Status DC Morphine Sulfate (*morphine INJ PERIprocedure ONLY) 8 mg STK-MED ONCE .ROUTE Last administered on 05/01/17 12:00; Start 05/01/17 at 12:00; Stop 05/01/17 at 12:01; Status DC Miscellaneous Information ALL NURSING DEPARTME... UNSCH PRN .XX SEE LABEL COMMENTS; Start 05/01/17 at 11:29; Stop 05/02/17 at 11:28; Status DC Methylprednisolone Sodium Succinate (SoluMEDROL INJ) 40 mg Q12HR IV PUSH Last administered on 05/06/17 08:06; Start 05/02/17 at 21:00; Stop 05/06/17 at 14 :15; Status DC Sodium Chloride 250 ml @ 15 mls/hr ONCE ONCE IV Last administered on 09:59; Start 05/04/17 at 08:00; Stop 05/05/17 at 00:39; Status DC Bumetanide (Bumex Inj) 1 mg ONCE ONCE IV PUSH ; Start 05/04/17 at 11:15; Stop 05/04/17 at 11:17; Status DC Bumetanide (Bumex Inj) 1 mg ONCE ONCE IV PUSH Last administered on 05/04/17 12:47; Start 05/04/17 at 13:30; Stop 05/04/17 at 13:31; Status DC Polyethylene Glycol/ Electrolytes (Colyte Liq) 4,000 ml ONCE ONCE PO Last administered on 05/04/17 15:51; Start 05/04/17 at 16:00; Stop 05/04/17 at 16 :01; Status DC Carvedilol (Coreg) 6.25 mg ONCE ONCE PO Last administered on 05/04/17 20:51 ; Start 05/04/17 at 19:00; Stop 05/04/17 at 19:04; Status DC Iron Sucrose 100 mg/Sodium Chloride 105 ml @ 105 mls/hr DAILY IV Last administered on 05/06/17 08:09; Start 05/05/17 at 09:00; Stop 05/07/17 at 09 :59; Status DC Polyethylene Glycol (Miralax) 17 gm DAILY PO Last administered on 05/07/17 12 :45; Start 05/05/17 at 15:00; Stop 05/09/17 at 13:16; Status DC Methylprednisolone Sodium Succinate (SoluMEDROL INJ) 30 mg Q12HR IV PUSH Last administered on 05/08/17 22:29; Start 05/06/17 at 21:00; Stop 05/09/17 at 13 :16; Status DC Propofol (Diprivan 200 Mg/20 ml Inj) 200 mg STK-MED ONCE IV ; Start 05/01/17 at 12:00; Stop 05/08/17 at 07:56; Status DC Sodium Chloride 500 ml @ As Directed STK-MED ONCE IV ; Start 05/01/17 at 12:00 ; Stop 05/08/17 at 07:56; Status DC Bumetanide (Bumetanide) 2 mg BID@09,18 PO Last administered on 05/09/17 12:37 ; Start 05/08/17 at 18:00; Stop 05/09/17 at 13:16; Status DC Epoetin Ismael (Epogen Inj) 10,000 units UNSCH PRN IV PUSH WITH DIALYSIS Last administered on 05/09/17 11:00; Start 05/08/17 at 10:30; Stop 05/09/17 at 13 :16; Status DC Epoetin Ismael (Epogen Inj) 20,000 units ONCE ONCE SQ Last administered on 05/08 16:05; Start 05/08/17 at 14:00; Stop 05/08/17 at 14:01; Status DC Multivitamins (Theragran) 1 tab DAILY PO Last administered on 05/09/17 12:43 ; Start 05/09/17 at 09:00; Stop 05/09/17 at 13:16; Status DC Calcium Acetate (Phoslo) 667 mg TID PO Last administered on 05/09/17t 12:37; Start 05/09/17 at 13:00; Stop 05/09/17 at 13:16; Status DC Vital Signs / I&O Vital Signs Date Time Temp Pulse Resp B/P (MAP) Pulse Ox O2 Delivery O2 Flow Rate FiO2 05/09/17 12:48 97.5 78 16 142/78 (99) 98 05/09/17 12:48 78 05/09/17 07:30 72 05/09/17 07:02 98.3 80 18 147/76 (99) 100 05/09/17 06:00 76 05/09/17 05:00 78 05/09/17 04:00 78 05/09/17 03:00 74 05/09/17 03:00 79 16 147/76 (99) 98 05/09/17 02:00 72 05/09/17 01:00 72 05/09/17 00:30 16 05/09/17 00:00 76 05/08/17 23:00 76 14 148/77 (100) 97 05/08/17 23:00 72 I/O 05/08/17 05/08/17 05/08/17 05/09/17 05/09/17 05/09/17 07:00 15:00 23:00 07:00 15:00 23:00 Intake Total 240 ml 540 ml 240 ml Output Total 600 ml 1150 ml 2000 ml Balance -360 ml -610 ml -1760 ml Intake Oral 240 ml 540 ml 240 ml Output Urine Total 600 ml 1150 ml Hemodialysis 2000 ml # Voids 2 # Bowel Movements 0 2 1 Physical Exam GENERAL: NAD, AAOx3 SKIN: Warm and dry. HEAD: Atraumatic. Normocephalic. EYES: Pupils equal and round. No scleral icterus. No injection or drainage. ENT: No nasal bleeding or discharge. Mucous membranes pink and moist. NECK: Trachea midline. No JVD. CARDIOVASCULAR: Regular rate and rhythm. RESPIRATORY: No accessory muscle use. Clear to auscultation. Breath sounds equal bilaterally. GASTROINTESTINAL: Abdomen soft, non-tender, nondistended. Hepatic and splenic margins not palpable. MUSCULOSKELETAL: Extremities without clubbing, cyanosis, or edema. No obvious deformities. Right abdominal wall with large ecchymosis layering out, left femoral no hematoma/bruit NEUROLOGICAL: Awake and alert. No obvious cranial nerve deficits. Motor grossly within normal limits. Five out of 5 muscle strength in the arms and legs. Normal speech. PSYCHIATRIC: Appropriate mood and affect; insight and judgment normal. Laboratory Laboratory Tests Test 05/09/17 06:33 05/09/17 06:34 05/09/17 06:36 05/09/17 12:36 Blood Urea Nitrogen 106 MG/DL Creatinine 3.96 MG/DL Random Glucose 186 MG/DL Albumin 2.8 GM/DL Calcium Level 8.3 MG/DL Phosphorus Level 3.8 MG/DL Sodium Level 135 MEQ/L Potassium Level 4.8 MEQ/L Chloride Level 96 MEQ/L Carbon Dioxide Level 28.2 MEQ/L Anion Gap 11 MEQ/L Estimat Glomerular Filtration Rate 11 ML/MIN Activated Partial Thromboplast Time 22.9 SEC White Blood Count 15.0 TH/MM3 Red Blood Count 3.41 MIL/MM3 Hemoglobin 10.0 GM/DL Hematocrit 30.2 % Mean Corpuscular Volume 88.5 FL Mean Corpuscular Hemoglobin 29.4 PG Mean Corpuscular Hemoglobin Concent 33.2 % Red Cell Distribution Width 17.9 % Platelet Count 101 TH/MM3 Mean Platelet Volume 8.4 FL Prothrombin Time 10.6 SEC Prothromb Time International Ratio 1.0 RATIO Assessment and Plan Problem List: (1) NSTEMI (non-ST elevated myocardial infarction) ICD Codes: I21.4 - Non-ST elevation (NSTEMI) myocardial infarction Status: Acute (2) Acute on chronic kidney failure ICD Codes: N17.9 - Acute kidney failure, unspecified; N18.9 - Chronic kidney disease, unspecified Status: Acute (3) HTN (hypertension) ICD Codes: I10 - HTN (hypertension) Status: Chronic (4) HLD (hyperlipidemia) ICD Codes: E78.5 - HLD (hyperlipidemia) Status: Chronic (5) Anemia ICD Codes: D64.9 - Anemia, unspecified Status: Acute (6) Tobacco abuse counseling ICD Codes: Z71.6 - Tobacco abuse counseling Assessment and Plan 1) NSTEMI/CAD Multivessel CAD ASA/BB/Statin/Brilinta Turned down for CABG s/p PCI of LCX with DESx2 (mid 2.5x22, distal 2.25x15 overlapped), PCI OM1 with ROMAN (2.25x18) Will plan for medical management of LAD as had multiple episodes of drop in Hgb 2) LEEANN on CKD HD started Still making urine with increased output Attempt to decrease nephrotoxin medications (contrast) if possible, not sure if chronic yet 3) Anemia Hgb stable Nephrology to start Epogen 4) Discussed with primary team Ok for rehab from a cardiovascular standpoint Problem Qualifiers (1) Acute on chronic kidney failure: Qualified Codes: N17.9 - Acute kidney failure, unspecified; N18.9 - Chronic kidney disease, unspecified (2) HTN (hypertension): Qualified Codes: I10 - Essential (primary) hypertension (3) HLD (hyperlipidemia): Qualified Codes: E78.5 - Hyperlipidemia, unspecified (4) Anemia: Qualified Codes: D64.9 - Anemia, unspecified Hemanth Cole DO May 09, 2017 22:55
== END 2017-05-09 13:13 | DRG 247 ==
LOC: NEPE 04:10 → NEDA 06:37 → HIMW 07:19 → HCIS 04-27 21:27
PROVIDERS: ADMIT Internal Medicine; ATTEND Family Medicine
PROC: 5A1D70Z Performance of Urinary Filtration, Intermittent, Less than 6 Hours Per Day (ICD-10-PCS; 2017-04-22)
PROC: 02HV33Z Insertion of Infusion Device into Superior Vena Cava, Percutaneous Approach (ICD-10-PCS; 2017-04-22)
PROC: B2111ZZ Fluoroscopy of Multiple Coronary Arteries using Low Osmolar Contrast (ICD-10-PCS; 2017-04-24)
PROC: 4A023N7 Measurement of Cardiac Sampling and Pressure, Left Heart, Percutaneous Approach (ICD-10-PCS; principal; 2017-04-24 08:45)
PROC: 30233N1 Transfusion of Nonautologous Red Blood Cells into Peripheral Vein, Percutaneous Approach (ICD-10-PCS; 2017-04-26)
PROC: 027136Z Dilation of Coronary Artery, Two Arteries with Three Drug-eluting Intraluminal Devices, Percutaneous Approach (ICD-10-PCS; 2017-04-28)
PROC: B2111ZZ Fluoroscopy of Multiple Coronary Arteries using Low Osmolar Contrast (ICD-10-PCS; 2017-04-28)
PROC: 02HV33Z Insertion of Infusion Device into Superior Vena Cava, Percutaneous Approach (ICD-10-PCS; 2017-04-28)
PROC: 0DJ08ZZ Inspection of Upper Intestinal Tract, Via Natural or Artificial Opening Endoscopic (ICD-10-PCS; 2017-05-01)
PROC: 0DBM8ZX Excision of Descending Colon, Via Natural or Artificial Opening Endoscopic, Diagnostic (ICD-10-PCS; 2017-05-05)
PROC: 0DBL8ZX Excision of Transverse Colon, Via Natural or Artificial Opening Endoscopic, Diagnostic (ICD-10-PCS; 2017-05-05)
PROC: 0DBP8ZX Excision of Rectum, Via Natural or Artificial Opening Endoscopic, Diagnostic (ICD-10-PCS; 2017-05-05)
DX: I21.4 Non-ST elevation (NSTEMI) myocardial infarction (principal); E87.2 Acidosis; I42.9 Cardiomyopathy, unspecified; N18.4 Chronic kidney disease, stage 4 (severe); N17.9 Acute kidney failure, unspecified; N25.81 Secondary hyperparathyroidism of renal origin; D62 Acute posthemorrhagic anemia; J44.1 Chronic obstructive pulmonary disease with (acute) exacerbation; I97.630 Postprocedural hematoma of a circulatory system organ or structure following a cardiac catheterization; E87.1 Hypo-osmolality and hyponatremia; I48.92 Unspecified atrial flutter; K62.6 Ulcer of anus and rectum; E11.21 Type 2 diabetes mellitus with diabetic nephropathy; E11.22 Type 2 diabetes mellitus with diabetic chronic kidney disease; E11.42 Type 2 diabetes mellitus with diabetic polyneuropathy; E87.5 Hyperkalemia; E78.5 Hyperlipidemia, unspecified; E03.9 Hypothyroidism, unspecified; F17.210 Nicotine dependence, cigarettes, uncomplicated; I25.10 Atherosclerotic heart disease of native coronary artery without angina pectoris; E83.39 Other disorders of phosphorus metabolism; E83.51 Hypocalcemia; K29.70 Gastritis, unspecified, without bleeding; K31.84 Gastroparesis; K57.30 Diverticulosis of large intestine without perforation or abscess without bleeding; D12.4 Benign neoplasm of descending colon; D12.3 Benign neoplasm of transverse colon; Y84.0 Cardiac catheterization as the cause of abnormal reaction of the patient, or of later complication, without mention of misadventure at the time of the procedure; I12.9 Hypertensive chronic kidney disease with stage 1 through stage 4 chronic kidney disease, or unspecified chronic kidney disease; D64.9 Anemia, unspecified; R60.0 Localized edema; E11.43 Type 2 diabetes mellitus with diabetic autonomic (poly)neuropathy; K59.00 Constipation, unspecified; Z79.84 Long term (current) use of oral hypoglycemic drugs; Z86.73 Personal history of transient ischemic attack (TIA), and cerebral infarction without residual deficits; Z88.1 Allergy status to other antibiotic agents; Z88.2 Allergy status to sulfonamides
CPT/HCPCS: 36430; 36556; 71010; 74176; 76775; 76937; 77001; 80048; 80053; 80061; 80069; 80074; 81001; 82043; 82272; 82652; 82728; 82947; 82948; 83036; 83540; 83550; 83605; 83735; 83880; 83970; 84100; 84132; 84155; 84165; 84443; 84484; 85002; 85014; 85018; 85025; 85027; 85610; 85730; 86021; 86038; 86160; 86335; 86850; 86900; 86901; 86920; 87086; 87641; 87804; 88305; 90935; 92928; 93005; 93306; 93454; 93458; 93880; 93926; 93970; 93998; 94010; 94640; 94664; 96361; 96365; 96374; 96375; 99152; 99153; 99292; C1725; C1752; C1769; C1874; C1887; C1893; C9113; J0360; J0610; J1580; J1644; J1756; J1815; J1885; J1956; J2060; J2250; J2270; J2405; J2920; J2930; J3010; J7030; J7040; J7050; P9016; P9047; Q4081; Q9967

== ENCOUNTER 2017-07-24 18:35 | Inpatient (IN) | payer MEDICARE, OTHER ==
[~2017-07-24] VITALS: Ht 157.5 cm; Wt 65.0 kg
[~2017-07-24 18:35] MED LIST changes: +ALPR.5 PO; -AMLO5TAB2 PO; +ASPI-516 CHEW; -ASPI1TAB69 PO; +BEDSIDE COMMODE1 MI1; -BENZ100 PO; +BRIL90TA PO; +BUME1TAB PO; +CALC.25 PO; +CARV12.5 PO; +CEPH-459 PO; -CIPR500T2 PO; -CODE5LIQ PO; +COMMODE 3-IN-11 MIS; -FERR325T PO; +FERR325T20 PO; -GLIP5TAB8 PO; +HYDR-3799 PO; +LIPI10TA PO; -LIPI20TA PO; +METO10TA PO; +PANT40TA3 PO; +PERI PO; +REST15CA PO; +SODI1TAB PO; +THERTAB15 PO; +TRAM50TA PO; +WALKER GLIDE WH1 MI1; +WHEEMIS3; -ZITHTAB PO
[2017-07-24 19:09] VITALS: BP 193/81; PULSE 95; RESP 18; TEMP 101.1; O2SAT 97
[2017-07-24] MEDS ORDERED: MORPHINE SULFATE 2 MG/ML INJ IV PUSH ONE (19:30)
[2017-07-24] MEDS ORDERED: ONDANSETRON HCL 4 MG/2 ML VIAL IV PUSH ONE (19:30)
--- NOTE | 2017-07-24 19:33 | PD ---
HPI Chief Complaint: Abdominal Pain Time Seen by Provider: 19:23 Travel History International Travel<30 days: No Contact w/Intl Traveler<30days: No Traveled to known affect area: No History of Present Illness HPI 61-year-old female with history of end-stage renal disease on dialysis Wednesdays and Fridays, diabetes, hypertension, coronary artery disease, presents via EMS for evaluation of abdominal pain, nausea, vomiting, diarrhea, fevers. Symptoms started today after dialysis. She describes the pain as a crampy pain in her periumbilical and suprapubic region which is constant. She reports 8 episodes of nonbloody nonbilious emesis as well as 4 episodes of loose watery stools. She endorses chills, myalgias, is noted to be febrile and ED. She denies cough, congestion, sore throat, chest pain or shortness of breath, flank pain. She denies any dysuria. She reports that recently she was on ciprofloxacin for urinary tract infection and completed this a few weeks ago. She has no other complaints at this time. PFSH Past Medical History Hx Anticoagulant Therapy: Yes (?) Anemia: Yes Arthritis: No Asthma: No Autoimmune Disease: No Blood Disorders: No Anxiety: No Depression: No Heart Rhythm Problems: No Cancer: No Cardiac Catheterization: Yes Cardiovascular Problems: Yes High Cholesterol: Yes Chemotherapy: No Chest Pain: No Congestive Heart Failure: Yes COPD: Yes Cerebrovascular Accident: Yes (TIA) Diabetes: Yes (DM TYPE 2) Patient Takes Glucophage: No Diminished Hearing: No Endocrine: Yes Gastrointestinal Disorders: Yes (DIVERTICULOSIS, HEMORRHOIDS, COLITIS, GASTRIC ULCER) GERD: No Genitourinary: Yes (CKD STAGE 2-3) Hepatitis: No Hiatal Hernia: No Hypertension: Yes Immune Disorder: No Implanted Vascular Access Dvce: No Kidney Stones: No Musculoskeletal: No Neurologic: Yes (PERIPHERAL NEUROPATHY) Psychiatric: No Reproductive: No Respiratory: No Immunizations Current: Yes Migraines: No Radiation Therapy: No Renal Failure: No Seizures: No Sickle Cell Disease: No Sleep Apnea: No Thyroid Disease: Yes (Hypothyroid) Ulcer: No Tetanus Vaccination: < 5 Years Influenza Vaccination: Yes ?: Not Menopausal: Yes : 2 Para: 2 Past Surgical History Abdominal Surgery: Yes (appendectomy) AICD: No Appendectomy: Yes Arteriovenous Shunt: No Cardiac Surgery: Yes (Stents placed by heart cath) Section: Yes (X2) Coronary Stent: Yes Ear Surgery: No Endocrine Surgery: No Eye Surgery: No Genitourinary Surgery: No Gynecologic Surgery: Yes (2 c sections) Insulin Pump: No Joint Replacement: No Oral Surgery: No Pacemaker: No Thoracic Surgery: No Other Surgery: Yes (APPENDECTOMY, D+C X 2, RT 3RD TOE AMPUTATION) Social History Alcohol Use: Yes (OCC) Tobacco Use: No Substance Use: No Allergies-Medications (Allergen,Severity, Reaction): Coded Allergies: Sulfa (Sulfonamide Antibiotics) (Unverified Adverse Reaction, Mild, RASH, 06/06/17) sulfamethoxazole (Unverified Adverse Reaction, Mild, Rash, 06/06/17) trimethoprim (Unverified Adverse Reaction, Mild, Rash, 06/06/17) Reported Meds & Prescriptions Reported Meds & Active Scripts Active Xanax (Alprazolam) 0.5 Mg Tab 0.5 Mg PO Q6H PRN Coreg (Carvedilol) 12.5 Mg Tab 25 Mg PO Q12HR Hydralazine HCl 25 Mg Tablet 25 Mg PO Q8HR Ferosul (Ferrous Sulfate) 325 Mg (65 Mg Iron) Tablet 325 Mg PO DAILY Pantoprazole (Pantoprazole Sodium) 40 Mg Tab 40 Mg PO DAILY Metoclopramide (Metoclopramide HCl) 10 Mg Tab 5 Mg PO BIDAC Brilinta (Ticagrelor) 90 Mg Tab 90 Mg PO BID Rocaltrol (Calcitriol) 0.25 Mcg Cap 0.25 Mcg PO DAILY Bumetanide 1 Mg Tab 2 Mg PO BID@09,18 Sodium Chloride 1 Gram Tab 1 Gm PO BID Restoril (Temazepam) 15 Mg Cap 15 Mg PO HS PRN Aspirin 81 Mg Chew 81 Mg CHEW DAILY Thera Tablet (Multivitamin with Folic Acid) 400 Mcg Tablet 1 Tab PO DAILY Gnp Senna Plus 8.6-50 mg (Sennosides-Docusate Sodium) 8.6 Mg-50 Mg Tab 1 Tab PO BID Lipitor (Atorvastatin Calcium) 10 Mg Tab 10 Mg PO HS Synthroid (Levothyroxine Sodium) 50 Mcg Tab 50 Mcg PO DAILY Vitamin B-12 (Cyanocobalamin) 500 Mcg Tab 500 Mcg PO DAILY Magnesium Oxide 400 Mg Tab 800 Mg PO BID Review of Systems Except as stated in HPI: all other systems reviewed are Neg Physical Exam Narrative GENERAL: Well-developed well-nourished female in no acute distress SKIN: Warm and dry. HEAD: Atraumatic. Normocephalic. EYES: Pupils equal and round. No scleral icterus. No injection or drainage. ENT: No nasal bleeding or discharge. Mucous membranes pink and moist. NECK: Trachea midline. No JVD. CARDIOVASCULAR: Regular rate and rhythm. No murmur appreciated. RESPIRATORY: No accessory muscle use. Clear to auscultation. Breath sounds equal bilaterally. GASTROINTESTINAL: Abdomen soft, generalized tenderness to palpation without guarding. No CVA tenderness. MUSCULOSKELETAL: No obvious deformities. No clubbing. No cyanosis. No edema. NEUROLOGICAL: Awake and alert. No obvious cranial nerve deficits. Motor grossly within normal limits. Normal speech. PSYCHIATRIC: Appropriate mood and affect; insight and judgment normal. Data Data Last Documented VS Vital Signs Date Time Temp Pulse Resp B/P (MAP) Pulse Ox O2 Delivery O2 Flow Rate FiO2 07/24/17 19:48 16 07/24/17 19:42 98 Room Air 07/24/17 19:09 101.1 95 193/81 (118) Orders Orders Sepsis Workup Initiated (07/24/17 ) Complete Blood Count With Diff (07/24/17 19:29) Comprehensive Metabolic Panel (07/24/17 19:29) Lactic Acid Sepsis Protocol (07/24/17 19:29) Urinalysis - C+S If Indicated (07/24/17 19:29) Influenzae A/B Antigen (07/24/17 19:29) Blood Culture (07/24/17 19:29) Chest, Single Ap (07/24/17 19:29) Blood Glucose (07/24/17 19:29) Ecg Monitoring (07/24/17 19:29) Iv Access Insert/Monitor (07/24/17 19:29) Oximetry (07/24/17 19:29) Oxygen Administration (07/24/17 19:29) Ct Abd/Pel W/O Iv Contrast (07/24/17 19:29) Lipase (07/24/17 19:29) Ondansetron Inj (Zofran Inj) (07/24/17 19:30) Morphine Inj (Morphine Inj) (07/24/17 19:30) C Diff Toxin Pcr (07/24/17 19:34) Ciprofloxacin 400 Mg Premix (Cipro 400 M (07/24/17 20:30) Metronidazole 500 Mg Inj (Flagyl 500 Mg (07/24/17 20:30) Admit Order (Ed Use Only) (07/24/17 21:40) Labs Laboratory Tests Test 07/24/17 19:50 White Blood Count 15.7 TH/MM3 Red Blood Count 3.94 MIL/MM3 Hemoglobin 13.2 GM/DL Hematocrit 39.6 % Mean Corpuscular Volume 100.6 FL Mean Corpuscular Hemoglobin 33.6 PG Mean Corpuscular Hemoglobin Concent 33.4 % Red Cell Distribution Width 13.7 % Platelet Count 201 TH/MM3 Mean Platelet Volume 7.6 FL Neutrophils (%) (Auto) 86.4 % Lymphocytes (%) (Auto) 8.2 % Monocytes (%) (Auto) 5.3 % Eosinophils (%) (Auto) 0.0 % Basophils (%) (Auto) 0.1 % Neutrophils # (Auto) 13.5 TH/MM3 Lymphocytes # (Auto) 1.3 TH/MM3 Monocytes # (Auto) 0.8 TH/MM3 Eosinophils # (Auto) 0.0 TH/MM3 Basophils # (Auto) 0.0 TH/MM3 CBC Comment DIFF FINAL Differential Comment Blood Urea Nitrogen 35 MG/DL Creatinine 3.27 MG/DL Random Glucose 154 MG/DL Total Protein 6.8 GM/DL Albumin 3.2 GM/DL Calcium Level 8.2 MG/DL Alkaline Phosphatase 92 U/L Aspartate Amino Transf (AST/SGOT) 23 U/L Alanine Aminotransferase (ALT/SGPT) 16 U/L Total Bilirubin 0.4 MG/DL Sodium Level 134 MEQ/L Potassium Level 4.0 MEQ/L Chloride Level 104 MEQ/L Carbon Dioxide Level 21.1 MEQ/L Anion Gap 9 MEQ/L Estimat Glomerular Filtration Rate 14 ML/MIN Lactic Acid Level 1.9 mmol/L Lipase 122 U/L MDM Medical Decision Making Medical Screen Exam Complete: Yes Emergency Medical Condition: Yes Medical Record Reviewed: Yes Differential Diagnosis Colitis, cystitis, pyelonephritis, dehydration, electrolyte abnormality, pneumonia, cholecystitis Narrative Course The patient was placed on ECG monitoring pulse oximetry. Lab work, blood cultures, influenza antigen, chest x-ray, CT abdomen and pelvis, urinalysis have been ordered. She will be given morphine and Zofran for symptom treatment. CT abdomen and pelvis reveals CONCLUSION: 1. There is inflammatory changes with thickening of the bowel wall involving the cecum, right colon and a portion of the transverse colon characteristic of colitis. No mechanical obstruction is seen. 2. Scattered diverticulosis of the descending and sigmoid colon without inflammatory changes. 3. Possible tiny 1 mm stone midpole right kidney without obstruction. 4. Stable 1.4 cm left renal cyst. 5. Sludge versus small gallstones in the gallbladder. No biliary tract obstruction. 6. Slowly resolving right inguinal hematoma. CBC reveals leukocytosis with WBC, 15.7, 86.4% neutrophils. The patient will be admitted for sepsis, colitis. Diagnosis Primary Impression: Colitis Additional Impression: Sepsis Admitting Information Admitting Physician Requests: Admit Rashel Marquis Jul 24, 2017 19:33
[2017-07-24 19:42] VITALS: RESP 16; O2SAT 98
--- NOTE | 2017-07-24 19:52 | RADRPT ---
EXAM DATE/TIME: 07/24/2017 19:36 [facility] COMPARISON: CHEST SINGLE AP, April 22, 2017, 14:40. INDICATIONS : Fever. Upper abdomen pain. MEDICAL HISTORY : Hypothyroidism. Myocardial infarction. Congestive heart failure. Peripheral neuropathy. TIA. Hype rcholesterolemia. Hyperlipidemia. HTN. COPD. Diverticulosis. Hemorrhoids. Colitis. Gastric ulcer. Sta ge 2-3 chronic kidney disease. Type II Diabetes. Anemia. SURGICAL HISTORY : Coronary artery stent. Appendectomy. section. Cardiac cath. Right middle toe amputation. D&C . ENCOUNTER: Initial ACUITY: 1 day PAIN SCORE: 5/10 LOCATION: Bilateral upper quadrant abdomen FINDINGS: A single view of the chest demonstrates the lungs to be symmetrically aerated without evidence of mas s, infiltrate or effusion. The cardiomediastinal contours are stable. Heart size is enlarged but sta ble. There is a right-sided central line in place. There is no pneumothorax. CONCLUSION: No acute intrathoracic disease. Stable examination. Diogenes Bowie MD on July 24, 2017 at 19:49 Board Certified Radiologist. This report was verified electronically.
--- NOTE | 2017-07-24 20:12 | RADRPT ---
EXAM DATE/TIME: 07/24/2017 19:53 [facility] COMPARISON: CT ABDOMEN & PELVIS W/O CONTRAST, April 29, 2017, 10:38. INDICATIONS : Bilateral lower abdomen pain,nausea,vomiting diahhria ORAL CONTRAST: No oral contrast ingested. RADIATION DOSE: 9.64 CTDIvol (mGy) MEDICAL HISTORY : Hypothyroidism. Cardiovascular disease Chronic obstructive pulmonary disease.Hypertension,diabetes SURGICAL HISTORY : Appendectomy. ENCOUNTER: Initial ACUITY: 1 day PAIN SCALE: 10/10 LOCATION: Bilateral lower quadrant abdomen TECHNIQUE: Volumetric scanning of the abdomen and pelvis was performed. Using automated exposure control and ad justment of the mA and/or kV according to patient size, radiation dose was kept as low as reasonably achievable to obtain optimal diagnostic quality images. DICOM format image data is available electro nically for review and comparison. The lack of IV contrast limits the diagnosis for certain organ pa thology. FINDINGS: LOWER LUNGS: The visualized lower lungs are clear. LIVER: Homogeneous density without lesion. There is no dilation of the biliary tree. There is either some s tones versus sludge in the gallbladder. No surrounding inflammatory changes are demonstrated.. SPLEEN: Normal size without lesion. PANCREAS: Within normal limits. KIDNEYS: Normal in size and shape. There is no mass or hydronephrosis. Possible tiny 1 mm nonobstructing ston e mid pole right kidney. 1.4 cm cyst mid pole left kidney. ADRENAL GLANDS: Within normal limits. VASCULAR: There is no aortic aneurysm. BOWEL/MESENTERY: There is scattered diffuse diverticulosis involving the descending and sigmoid colon without inflamma tory changes at this level. However, there does appear to be inflammatory changes involving the cecum , right colon and portion of the transverse colon with bowel wall thickening suggestive of colitis. N o free fluid or loculated fluid collections are demonstrated. No mechanical obstruction is demonstrat ed. ABDOMINAL WALL: Within normal limits. RETROPERITONEUM: There is no lymphadenopathy. BLADDER: No wall thickening or mass. REPRODUCTIVE: Within normal limits. INGUINAL: There is a right inguinal hematoma which is decreased in size compared to the prior study. Hematoma n ow measures 5.9 x 2.5 cm. MUSCULOSKELETAL: There is an old partially healed posterior right rib fractures. There are degenerative changes throug hout the lumbar spine and pelvis. CONCLUSION: 1. There is inflammatory changes with thickening of the bowel wall involving the cecum, right colon a nd a portion of the transverse colon characteristic of colitis. No mechanical obstruction is seen. 2. Scattered diverticulosis of the descending and sigmoid colon without inflammatory changes. 3. Possible tiny 1 mm stone midpole right kidney without obstruction. 4. Stable 1.4 cm left renal cyst. 5. Sludge versus small gallstones in the gallbladder. No biliary tract obstruction. 6. Slowly resolving right inguinal hematoma. Diogenes Bowie MD on July 24, 2017 at 20:03 Board Certified Radiologist. This report was verified electronically.
[2017-07-24 20:17] LABS: AUTOMATED NEUTROPHIL # 13.5 TH/MM3 (1.8-7.7); BASOPHIL % 0.1 % (0.0-2.0); HEMATOCRIT 39.6 % (35.0-46.0); HEMOGLOBIN 13.2 GM/DL (11.6-15.3); LYMPH % 8.2 % (9.0-44.0); LYMPHOCYTE # 1.3 TH/MM3 (1.0-4.8); MEAN CELL VOLUME 100.6 FL (80.0-100.0); MEAN CORPUSCULAR HEMOGLOBIN 33.6 PG (27.0-34.0); MEAN CORPUSCULAR HGB CONC 33.4 % (32.0-36.0); MEAN PLATELET VOLUME 7.6 FL (7.0-11.0); MONO % 5.3 % (0.0-8.0); MONOCYTE # 0.8 TH/MM3 (0-0.9); NEUT % 86.4 % (16.0-70.0); PLATELET COUNT 201 TH/MM3 (150-450); RED BLOOD COUNT 3.94 MIL/MM3 (4.00-5.30); RED CELL DISTRIBUTION WIDTH 13.7 % (11.6-17.2); WHITE BLOOD COUNT 15.7 TH/MM3 (4.0-11.0)
[2017-07-24] MEDS ORDERED: metroNIDAZOLE 500 MG INJ 100 ML IV ONE (20:30)
[2017-07-24] MEDS ORDERED: CIPROFLOXACIN 400 MG PREMIX 200 ML IV ONE (20:30)
[2017-07-24 20:32] LABS: ALT (GPT) 16 U/L (10-53)
[2017-07-24 20:35] LABS: ALKALINE PHOSPHATASE 92 U/L (45-117); TOTAL BILIRUBIN ADULT 0.4 MG/DL (0.2-1.0); TOTAL PROTEIN 6.8 GM/DL (6.4-8.2)
[2017-07-24 20:36] LABS: ALBUMIN 3.2 GM/DL (3.4-5.0); AST (GOT) 23 U/L (15-37); BICARBONATE 21.1 MEQ/L (21.0-32.0); BLOOD UREA NITROGEN 35 MG/DL (7-18); CALCIUM 8.2 MG/DL (8.5-10.1); CHLORIDE 104 MEQ/L (98-107); CREATININE 3.27 MG/DL (0.50-1.00); GLOMERULAR FILTRATION RATE 14 ML/MIN (>89); GLUCOSE,RANDOM 154 MG/DL (74-106); SODIUM (NA) 134 MEQ/L (136-145)
--- NOTE | 2017-07-24 21:49 | HHI.HP ---
HPI Service [facility] Service Attending: Dr. Zack Cortés Primary Care Physician Red Staley , Heather Mott MD Admission Diagnosis sepsis, colitis Diagnoses: International Travel<30 Days: No Contact w/Intl Traveler<30days: No History of Present Illness Patient is a 61 year old female who presented via [facility] for persistent abdominal pain and vomiting. Onset 10am. Patient had just finished dialysis at this time. Vomiting started first; clear, nonbloody, nonbilious, starting around 10am. Total 7 episodes of vomiting. Abdominal pain started shortly after, characterized by "very" sharp continuous pain. Severity 10/10. Has never had pain like this before. Then diarrhea, dark brown, nonbloody. Total 5 episodes of loose stools, not particularly odorous. Pain has not let up at all today. She tried Pepto Bismol but this did not help. ESRD: on dialysis MWF, no recently missed episodes. Has been on dialysis for couple months. Has port in place in right chest with no pain or swelling. DM: reports low sugars on glipizide, can't take metformin because of ESRD. No reported history of GI disease or workup. (Carissa Martinez MD) Review of Systems Constitutional: COMPLAINS OF: Fever, Chills, Dizziness Endocrine: DENIES: Polydipsia, Polyuria Eyes: DENIES: Blurred vision, Diplopia Ears, nose, mouth, throat: DENIES: Tinnitus, Hearing loss, Oral lesions, Throat pain Respiratory: DENIES: Cough, Wheezing, Shortness of breath Cardiovascular: DENIES: Chest pain, Syncope Gastrointestinal: COMPLAINS OF: Abdominal pain, Diarrhea, Nausea, Vomiting, DENIES: Black stools, Bloody stools, Constipation, Difficulty Swallowing Musculoskeletal: DENIES: Joint pain, Muscle aches Integumentary: DENIES: Pruritus, Rash Neurologic: DENIES: Headache, Localized weakness Psychiatric: DENIES: Anxiety, Confusion, Depression (Carissa Martinez MD ) Past Family Social History Past Medical History Diabetes High blood pressure Hypothyroid Iron deficiency anemia NSTEMI (04/2017) Abdominal hematoma (was followed by vascular, but recently discharged) CKD, currently getting dialysis MWF Other Physicians/Providers Involved in the Care of Patient[facility] Past Surgical History Toe amputation Appendix Right thumb operation unknown Reported Medications Reported Meds & Active Scripts Active Xanax (Alprazolam) 0.5 Mg Tab 0.5 Mg PO Q6H PRN Coreg (Carvedilol) 12.5 Mg Tab 25 Mg PO Q12HR Hydralazine HCl 25 Mg Tablet 25 Mg PO Q8HR Ferosul (Ferrous Sulfate) 325 Mg (65 Mg Iron) Tablet 325 Mg PO DAILY Pantoprazole (Pantoprazole Sodium) 40 Mg Tab 40 Mg PO DAILY Metoclopramide (Metoclopramide HCl) 10 Mg Tab 5 Mg PO BIDAC Brilinta (Ticagrelor) 90 Mg Tab 90 Mg PO BID Rocaltrol (Calcitriol) 0.25 Mcg Cap 0.25 Mcg PO DAILY Bumetanide 1 Mg Tab 2 Mg PO BID@,18 Sodium Chloride 1 Gram Tab 1 Gm PO BID Restoril (Temazepam) 15 Mg Cap 15 Mg PO HS PRN Aspirin 81 Mg Chew 81 Mg CHEW DAILY Thera Tablet (Multivitamin with Folic Acid) 400 Mcg Tablet 1 Tab PO DAILY Gnp Senna Plus 8.6-50 mg (Sennosides-Docusate Sodium) 8.6 Mg-50 Mg Tab 1 Tab PO BID Lipitor (Atorvastatin Calcium) 10 Mg Tab 10 Mg PO HS Synthroid (Levothyroxine Sodium) 50 Mcg Tab 50 Mcg PO DAILY Vitamin B-12 (Cyanocobalamin) 500 Mcg Tab 500 Mcg PO DAILY Magnesium Oxide 400 Mg Tab 800 Mg PO BID (Carissa Martinez MD) Allergies: Coded Allergies: Sulfa (Sulfonamide Antibiotics) (Unverified Adverse Reaction, Mild, RASH, 06/06/17) sulfamethoxazole (Unverified Adverse Reaction, Mild, Rash, 06/06/17) trimethoprim (Unverified Adverse Reaction, Mild, Rash, 06/06/17) Active Ordered Medications Inpatient Medications Ciprofloxacin/ Dextrose 200 ml @ 200 mls/hr ONCE ONCE IV Last administered on 07/24/17at 20:53; Start 07/24/17 at 20:30; Stop 07/24/17 at 21:29; Status DC Metronidazole 100 ml @ 100 mls/hr ONCE ONCE IV Last administered on 07/24/17at 21:21; Start 07/24/17 at 20:30; Stop 07/24/17 at 21:29; Status DC Morphine Sulfate (Morphine Inj) 4 mg ONCE ONCE IV PUSH Last administered on 07/24/17at 19:49; Start 07/24/17 at 19:30; Stop 07/24/17 at 19:31; Status DC Ondansetron HCl (Zofran Inj) 4 mg ONCE ONCE IV PUSH Last administered on at 19:49; Start 07/24/17 at 19:30; Stop 07/24/17 at 19:32; Status DC Family History Father: 1983, murder Mother: , high blood pressure, CK-MB Siblings: 3 sisters alive and well Children: One son 43 alive and well. One daughter 41 alive and well. Social History Marital Status: ; patient's has stage IV lung cancer. Education: Graduated high school Tobacco: Greater than [id number] history (started one pack per day from age 14 through 2015). Has cut back in the last 2 years to one half pack per day. Alcohol: Wine Socially Illicit drug use: none (Carissa Martinez MD) Physical Exam Vital Signs Vital Signs Date Time Temp Pulse Resp B/P (MAP) Pulse Ox O2 Delivery O2 Flow Rate FiO2 07/24/17 19:48 16 07/24/17 19:42 98 Room Air 07/24/17 19:42 16 98 Room Air 07/24/17 19:09 101.1 95 18 193/81 (118) 97 Physical Exam GENERAL: This is a well-nourished, well-developed female patient appears to be in moderate pain. SKIN: No rashes, ecchymoses or lesions. Warm and dry. HEAD: Atraumatic. Normocephalic. No temporal or scalp tenderness. EYES: Pupils equal round and reactive. Extraocular motions intact. No scleral icterus. No injection or drainage. ENT: Nose without bleeding or purulent drainage. Throat without erythema, tonsillar hypertrophy or exudate. Uvula midline. Airway patent. NECK: Trachea midline. No JVD or lymphadenopathy. Supple, nontender, no meningeal signs. CARDIOVASCULAR: Regular rate and rhythm without murmurs, gallops, or rubs. RESPIRATORY: Clear to auscultation. Breath sounds equal bilaterally. No wheezes , rales, or rhonchi. CHEST: Right chest port noted with surrounding skin intact, nonerythematous, nontender. BACK: No CVA tenderness, no spinal tenderness. GASTROINTESTINAL: Abdomen soft, obese but nondistended. Bowel sounds significantly hypoactive in all 4 quadrants. Globally tender to palpation in all quadrants without a focal point. No hepato-splenomegaly, or palpable masses. No guarding. MUSCULOSKELETAL: Extremities without clubbing, cyanosis, or edema. No joint tenderness, effusion, or edema noted. No calf tenderness. Patient ambulates without difficulty from bed to chair. NEUROLOGICAL: Awake and alert. Cranial nerves II through XII grossly intact. Motor and sensory grossly within normal limits. Normal speech. Laboratory Laboratory Tests Test 07/24/17 19:50 White Blood Count 15.7 Red Blood Count 3.94 Hemoglobin 13.2 Hematocrit 39.6 Mean Corpuscular Volume 100.6 Mean Corpuscular Hemoglobin 33.6 Mean Corpuscular Hemoglobin Concent 33.4 Red Cell Distribution Width 13.7 Platelet Count 201 Mean Platelet Volume 7.6 Neutrophils (%) (Auto) 86.4 Lymphocytes (%) (Auto) 8.2 Monocytes (%) (Auto) 5.3 Eosinophils (%) (Auto) 0.0 Basophils (%) (Auto) 0.1 Neutrophils # (Auto) 13.5 Lymphocytes # (Auto) 1.3 Monocytes # (Auto) 0.8 Eosinophils # (Auto) 0.0 Basophils # (Auto) 0.0 CBC Comment DIFF FINAL Differential Comment Blood Urea Nitrogen 35 Creatinine 3.27 Random Glucose 154 Total Protein 6.8 Albumin 3.2 Calcium Level 8.2 Alkaline Phosphatase 92 Aspartate Amino Transf (AST/SGOT) 23 Alanine Aminotransferase (ALT/SGPT) 16 Total Bilirubin 0.4 Sodium Level 134 Potassium Level 4.0 Chloride Level 104 Carbon Dioxide Level 21.1 Anion Gap 9 Estimat Glomerular Filtration Rate 14 Lactic Acid Level 1.9 Lipase 122 Date/Time Source Procedure Growth Status 07/24/17 19:50 Blood Peripheral Aerobic Blood Culture Pending Received 07/24/17 19:50 Blood Peripheral Anaerobic Blood Culture Pending Received 07/24/17 20:15 Nasal Aspirate Influenza Types A,B Antigen (CHUCK) - Final NEGATIVE FOR FLU A AND B ANTIGEN.... Complete (Carissa Martinez MD) Result Diagram: 07/24/17 1950 07/24/171949 Septic Shock Reassessment Septic shock perfusion: reassessment completed (no evidence of septic shock on exam) (Carissa Martinez MD) Caprini VTE Risk Assessment Caprini VTE Risk Assessment: Mod/High Risk (score >= 2) Caprini Risk Assessment Model Point Value = 1 Point Value = 2 Point Value = 3 Point Value = 5 Age 41-60 Minor surgery BMI > 25 kg/m2 Swollen legs Varicose veins or History of unexplained or recurrent spontaneous Oral contraceptives or hormone replacement Sepsis (< 1 month) Serious lung disease, including pneumonia (< 1 month) Abnormal pulmonary function Acute myocardial infarction Congestive heart failure (< 1 month) History of inflammatory bowel disease Medical patient at bed rest Age 61-74 Arthroscopic surgery Major open surgery (> 45 min) Laparoscopic surgery (> 45 min) Malignancy Confined to bed (> 72 hours) Immobilizing plaster cast Central venous access Age >= 75 History of VTE Family history of VTE Factor V Leiden Prothrombin [id number] Lupus anticoagulant Anticardiolipin antibodies Elevated serum homocysteine Heparin-induced thrombocytopenia Other congenital or acquired thrombophilia Stroke (< 1 month) Elective arthroplasty Hip, pelvis, or leg fracture Acute spinal cord injury (< 1 month) Prophylaxis Regimen Total Risk Factor Score Risk Level Prophylaxis Regimen 0-1 Low Early ambulation 2 Moderate Order ONE of the following: *Sequential Compression Device (SCD) *Heparin 5000 units SQ BID 3-4 Higher Order ONE of the following medications: *Heparin 5000 units SQ TID *Enoxaparin/Lovenox 40 mg SQ daily (WT < 150 kg, CrCl > 30 mL/min) *Enoxaparin/Lovenox 30 mg SQ daily (WT < 150 kg, CrCl > 10-29 mL/min) *Enoxaparin/Lovenox 30 mg SQ BID (WT < 150 kg, CrCl > 30 mL/min) AND/OR *Sequential Compression Device (SCD) 5 or more Highest Order ONE of the following medications: *Heparin 5000 units SQ TID (Preferred with Epidurals) *Enoxaparin/Lovenox 40 mg SQ daily (WT < 150 kg, CrCl > 30 mL/min) *Enoxaparin/Lovenox 30 mg SQ daily (WT < 150 kg, CrCl > 10-29 mL/min) *Enoxaparin/Lovenox 30 mg SQ BID (WT < 150 kg, CrCl > 30 mL/min) AND *Sequential Compression Device (SCD) (Carissa Martinez MD) Assessment and Plan Assessment and Plan 61-year-old female with history of diabetes, chronic kidney disease on dialysis , and STEMI, hypothyroidism who presents with diffuse abdominal pain, nausea, vomiting, diarrhea. She meets sepsis criteria on admission, no evidence of severe sepsis or shock. Presentation is suspicious of GI etiology. Patient to be admitted for further evaluation and management. Disposition: Patient likely to require 2-3 day inpatient stay for further workup and management of sepsis. She will require inpatient hemodialysis if she stays greater than 24 hours. Code Status Full code, discussed with patient 07/24/17 Discussed Condition With Mr. Marquis, PA Will discuss with Dr. Borrero, PGY 3 who will be managing patient's care (Carissa Martinez MD) Attending Attestation Patient seen and examined. Discussed with Dr. Borrero. Agree with physical findings, assessment and plan as documented. (Prevatte,Dm Lockhart Jr., MD) Problem List: (1) Sepsis ICD Codes: A41.9 - Sepsis, unspecified organism Status: Acute Plan: Patient meeting sepsis criteria on admission 07/24/17 via fever of 101.1F, heart rate greater than 90, CBC 15.7 with left shift. No lactic acidosis. Suspected sources GI given CT findings suggestive of colitis, and symptoms of nausea, vomiting, and diarrhea. Of note, patient did receive prescription for Keflex for UTI recently. Status post 1 dose of ciprofloxacin 400 mg IV and Flagyl 500 mg IV in ED. Patient did not receive fluid bolus due to chronic kidney disease on dialysis. * Continue ciprofloxacin at 400 mg IV, renally dosed every 24 hours * Continue Flagyl 500 mg IV every 8 hours * Workup to include blood cultures drawn in ED, to follow; C. difficile toxin studies; stool studies to include culture, WBC, ova and parasite, Giardia, Rotavirus (2) Colitis ICD Codes: K52.9 - Noninfective gastroenteritis and colitis, unspecified Status: Acute Plan: Patient with a CT scan showing inflammatory changes with thickening of the bowel wall involving the cecum, right colon and a portion of the transverse colon characteristic of colitis. There is also scattered diverticulosis without inflammatory changes. There is also a slowly resolving right inguinal hematoma noted. (3) HTN (hypertension) ICD Codes: I10 - HTN (hypertension) Status: Chronic Plan: Patient presented with HTN urgency, received PO home medications ( hydralazine (4) CKD (chronic kidney disease) stage 5, GFR less than 15 ml/min ICD Codes: N18.5 - Chronic kidney disease, stage 5 Status: Chronic Plan: CKD on dialysis for the last few months. Makes some urine. [employer] [place] is Dr. Corral. Patient receives dialysis via chest port on Monday, Monday, Monday. Last session was 07/24/17. * Nephrology consulted for routine hemodialysis and renal needs * Recheck BMP in the morning * Cautious IV fluids (indicated given no UOP since admission, meeting sepsis criteria) (5) DM2 (diabetes mellitus, type 2) ICD Codes: E11.9 - Type 2 diabetes mellitus without complications Status: Chronic Plan: NPO for now so will check blood glucose bedside more frequently given reported hx of hypoglycemia. Glipizide recently discontinued given hx of hypoglycemia. * Accucheks 3am, 8am, 12pm, 5pm, 9pm * Low-dose supplemental Novolog ordered for PRN needs (6) Hypothyroidism ICD Codes: E03.9 - Hypothyroidism, unspecified Status: Chronic Plan: Patient on levothyroxine 50 mcg daily. Will continue home dose. (7) CAD (coronary artery disease) ICD Codes: I25.10 - Atherosclerotic heart disease of [place] coronary artery without angina pectoris Status: Chronic Plan: Stable, asymptomatic. Continue ASA, statin, Brilinta. Monitor for signs of bleeding. (8) Anxiety ICD Codes: F41.9 - Anxiety disorder, unspecified Status: Chronic Plan: Patient reports anxiety with Restoril 15mg PO hs use and PRN Xanax ( reportedly using once daily at most) * Xanax to be ordered 0.5mg BID PRN, will monitor inpt needs and home meds to be adjusted to reflect this (9) Nutrition, metabolism, and development symptoms ICD Codes: R63.8 - Other symptoms and signs concerning food and fluid intake Status: Acute Plan: Fluids: NS @ 75ml/hr Electrolytes: monitor and replete as needed, repeat CBC and BMP in AM Nutrition: NPO overnight, reintroduce renal diet once tolerating by mouth DVT Prophylaxis: Early ambulation. Bilateral SCDs. GI Prophylaxis: Ge home dose pantoprazole 40 mg daily PRN anti-HTN: Will monitor BP, re-introduce home medications slowly (carvedilol , hydralazine) (Carissa Martinez MD) Physician Certification 2 Midnight Certification Type: Admission for Inpatient Services Order for Inpatient Services The services are ordered in accordance with Medicare regulations or non- Medicare payer requirements, as applicable. In the case of services not specified as inpatient-only, they are appropriately provided as inpatient services in accordance with the 2-midnight benchmark. Estimated LOS (days): 3 days is the estimated time the patient will need to remain in the hospital, assuming treatment plan goals are met and no additional complications. Post-Hospital Plan: Home (Carissa Martinez MD) Problem Qualifiers (1) Sepsis: Qualified Codes: A41.9 - Sepsis, unspecified organism (2) HTN (hypertension): Qualified Codes: I10 - Essential (primary) hypertension (3) DM2 (diabetes mellitus, type 2): Qualified Codes: E11.22 - Type 2 diabetes mellitus with diabetic chronic kidney disease; N18.6 - End stage renal disease; Z99.2 - Dependence on renal dialysis (4) Hypothyroidism: Qualified Codes: E03.9 - Hypothyroidism, unspecified (5) CAD (coronary artery disease): Qualified Codes: I25.10 - Atherosclerotic heart disease of [place] coronary artery without angina pectoris Carissa Martinez MD Jul 24, 2017 21:49 Dm Cortés Jr., MD Jul 25, 2017 13:14
[2017-07-24] MEDS ORDERED: SODIUM CHLORIDE 0.9% FLUSH 10 ML FLUSH IV FLUSH PRN (22:15)
[2017-07-24] MEDS ORDERED: NALOXONE HCL 0.4 MG/ML AMP IV PUSH PRN ×2 (22:15→22:30)
[2017-07-24] MEDS ORDERED: ONDANSETRON HCL 4 MG/2 ML VIAL IVP PRN (22:15)
[2017-07-24] MEDS ORDERED: hydrALAZINE HCL 25 MG TAB PO SCH (22:30)
[2017-07-24] MEDS ORDERED: TEMAZEPAM 15 MG CAP PO PRN (22:30)
[2017-07-24] MEDS ORDERED: CARVEDILOL 12.5 MG TAB PO SCH (22:30)
[2017-07-24] MEDS ORDERED: MORPHINE SULFATE 2 MG/ML INJ IV PUSH PRN ×2 (22:30)
[2017-07-24] MEDS ORDERED: ALPRAZolam 0.5 MG TAB PO PRN (22:30)
[2017-07-24] MEDS ORDERED: SODIUM CHLOR 0.9% 1000 ML INJ 1,000 ML IV SCH (23:00)
[2017-07-24 23:10] VITALS: BP 141/67; PULSE 93; RESP 16; TEMP 98.8; O2SAT 98
[2017-07-24 23:53] VITALS: BP 142/65; PULSE 95; RESP 18; TEMP 98.2; O2SAT 99
[2017-07-25] MEDS ORDERED: ALPRAZolam 0.5 MG TAB PO PRN (01:00)
[2017-07-25 03:55] VITALS: BP 115/60; PULSE 79; RESP 18; TEMP 98.6; O2SAT 96
[2017-07-25] MEDS: LEVOTHYROXINE SODIUM 50 MCG TAB PO SCH (05:23)
[2017-07-25] MEDS: metroNIDAZOLE 500 MG INJ 100 ML IV SCH ×3 (06:22→23:04)
[2017-07-25 06:44] LABS: AUTOMATED NEUTROPHIL # 13.5 TH/MM3 (1.8-7.7); BASOPHIL % 0.3 % (0.0-2.0); EOSINOPHIL % 0.1 % (0.0-4.0); HEMATOCRIT 36.7 % (35.0-46.0); HEMOGLOBIN 12.2 GM/DL (11.6-15.3); LYMPH % 12.2 % (9.0-44.0); LYMPHOCYTE # 2.1 TH/MM3 (1.0-4.8); MEAN CELL VOLUME 102.8 FL (80.0-100.0); MEAN CORPUSCULAR HEMOGLOBIN 34.2 PG (27.0-34.0); MEAN CORPUSCULAR HGB CONC 33.3 % (32.0-36.0); MEAN PLATELET VOLUME 7.7 FL (7.0-11.0); MONO % 9.1 % (0.0-8.0); MONOCYTE # 1.6 TH/MM3 (0-0.9); NEUT % 78.3 % (16.0-70.0); PLATELET COUNT 192 TH/MM3 (150-450); RED BLOOD COUNT 3.57 MIL/MM3 (4.00-5.30); RED CELL DISTRIBUTION WIDTH 14.1 % (11.6-17.2); WHITE BLOOD COUNT 17.2 TH/MM3 (4.0-11.0)
[2017-07-25 07:13] LABS: ALBUMIN 2.7 GM/DL (3.4-5.0); ALT (GPT) 11 U/L (10-53); AST (GOT) 14 U/L (15-37); BICARBONATE 20.7 MEQ/L (21.0-32.0); BLOOD UREA NITROGEN 39 MG/DL (7-18); CALCIUM 8.2 MG/DL (8.5-10.1); CHLORIDE 105 MEQ/L (98-107); CREATININE 3.94 MG/DL (0.50-1.00); GLOMERULAR FILTRATION RATE 12 ML/MIN (>89); GLUCOSE,RANDOM 144 MG/DL (74-106); SODIUM (NA) 137 MEQ/L (136-145)
[2017-07-25 07:16] LABS: ALKALINE PHOSPHATASE 71 U/L (45-117); TOTAL BILIRUBIN ADULT 0.4 MG/DL (0.2-1.0); TOTAL PROTEIN 5.7 GM/DL (6.4-8.2)
--- NOTE | 2017-07-25 07:24 | HHI.FPPN ---
Subjective Remarks 61 y/o female on hemodialysis 3x per week, presenting with sudden onset abdominal pain, fevers/chills, nausea/vomiting, and loose BM's x 7 approximately 24 hours ago. The pain is currently a 8/10, diffusely throughout her abdomen and not localized. She has not tried to eat anything today. She has been having a small amount of blood when wiping and thinks this is "Due to my hemorrhoids." She is no longer having fever or chills. She denies a new cough or productive sputum. She currently is denying chest pain. (En Borrero MD, R3) Objective Vitals Vital Signs Date Time Temp Pulse Resp B/P (MAP) Pulse Ox O2 Delivery O2 Flow Rate FiO2 07/25/17 03:55 98.6 79 18 115/60 (78) 96 07/24/17 23:53 98.2 95 18 142/65 (90) 99 07/24/17 23:45 07/24/17 23:10 98.8 93 16 141/67 (91) 98 Room Air 07/24/17 19:48 16 07/24/17 19:42 98 Room Air 07/24/17 19:42 16 98 Room Air 07/24/17 19:09 101.1 95 18 193/81 (118) 97 (En Borrero MD, R3) Result Diagram: 07/25/17 0620 07/25/17 0620 Objective Remarks GEN: NAD but appears uncomfortable. non toxic HEENT: PERRL, some conjunctival icterus, PEERL EOMI RESP: Coarse breath sounds throughout but no area of decreased aeration or crackles. CV: RRR, faint heart sounds, pulses equal to all extremities, no lower ext edema. GI: Large midline scar just inferior to the umbilicus, slightly distended, no rebound, but voluntary guarding on deep palpation, hyperactive BS. MSK: 5/5 strength throughout. (En Borrero MD, R3) A/P Assessment and Plan 61-year-old female with history of diabetes, chronic kidney disease on dialysis , NSTEMI, hypothyroidism who presents with diffuse abdominal pain, nausea, vomiting, diarrhea. She meets sepsis criteria on admission, no evidence of severe sepsis or shock. Presentation is suspicious of GI etiology. Patient to be admitted for further evaluation and management. Disposition: Patient likely to require 2-3 day inpatient stay for further workup and management of sepsis. She will require inpatient hemodialysis if she stays greater than 24 hours. (En Borrero MD, R3) Attending Attestation Patient seen and examined. Discussed with Dr. Borrero. Agree with assessment and plan as documented. (Dm Cortés Jr., MD) Problem List: (1) Sepsis ICD Codes: A41.9 - Sepsis, unspecified organism Status: Acute Plan: Patient meeting sepsis criteria on admission 07/24/17 via fever of 101.1F, heart rate greater than 90, CBC 15.7 with left shift. No lactic acidosis. Suspected sources GI given CT findings suggestive of colitis, and symptoms of nausea, vomiting, and diarrhea. Of note, patient did receive prescription for Keflex for UTI recently. Status post 1 dose of ciprofloxacin 400 mg IV and Flagyl 500 mg IV in ED. Patient did not receive fluid bolus due to chronic kidney disease on dialysis. * Continue ciprofloxacin at 400 mg IV, renally dosed every 24 hours * Continue Flagyl 500 mg IV every 8 hours * Add vancomycin 1 g x 1 given central access with right sided Vas-cath. * Workup to include blood cultures drawn in ED, to follow; C. difficile toxin studies; stool studies to include culture, WBC, ova and parasite, Giardia, Rotavirus (2) Colitis ICD Codes: K52.9 - Noninfective gastroenteritis and colitis, unspecified Status: Acute Plan: Patient with a CT scan showing inflammatory changes with thickening of the bowel wall involving the cecum, right colon and a portion of the transverse colon characteristic of colitis. There is also scattered diverticulosis without inflammatory changes. There is also a slowly resolving right inguinal hematoma noted. Consult GI in 24 hours if not improving or sooner if patient deteriorates for any reason. (3) HTN (hypertension) ICD Codes: I10 - HTN (hypertension) Status: Chronic Plan: Patient presented with HTN urgency, received PO home medications ( hydralazine) - resolved. (4) CKD (chronic kidney disease) stage 5, GFR less than 15 ml/min ICD Codes: N18.5 - Chronic kidney disease, stage 5 Status: Chronic Plan: CKD on dialysis for the last few months. Makes some urine. Physical Therapy Attendant is Dr. Corral. Patient receives dialysis via chest port on Monday, Monday, Monday. Last session was 07/24/17. * Nephrology consulted for routine hemodialysis and renal needs * Recheck BMP in the morning * Cautious IV fluids (indicated given no UOP since admission, meeting sepsis criteria) (5) DM2 (diabetes mellitus, type 2) ICD Codes: E11.9 - Type 2 diabetes mellitus without complications Status: Chronic Plan: NPO for now so will check blood glucose bedside more frequently given reported hx of hypoglycemia. Glipizide recently discontinued given hx of hypoglycemia. * Accucheks 3am, 8am, 12pm, 5pm, 9pm * Low-dose supplemental Novolog ordered for PRN needs (6) Hypothyroidism ICD Codes: E03.9 - Hypothyroidism, unspecified Status: Chronic Plan: Patient on levothyroxine 50 mcg daily. Will continue home dose. (7) CAD (coronary artery disease) ICD Codes: I25.10 - Atherosclerotic heart disease of [place] coronary artery without angina pectoris Status: Chronic Plan: Stable, asymptomatic. Continue ASA, statin, Brilinta. Monitor for signs of bleeding. (8) Anxiety ICD Codes: F41.9 - Anxiety disorder, unspecified Status: Chronic Plan: Patient reports anxiety with Restoril 15mg PO hs use and PRN Xanax ( reportedly using once daily at most) * Xanax to be ordered 0.5mg BID PRN, will monitor inpt needs and home meds to be adjusted to reflect this (9) Nutrition, metabolism, and development symptoms ICD Codes: R63.8 - Other symptoms and signs concerning food and fluid intake Status: Acute Plan: Fluids: NS @ 75ml/hr. Electrolytes: monitor and replete as needed, repeat CBC and BMP in AM Nutrition: NPO overnight, reintroduce renal diet once tolerating by mouth DVT Prophylaxis: Early ambulation. Bilateral SCDs. GI Prophylaxis: Ge home dose pantoprazole 40 mg daily PRN anti-HTN: Will monitor BP, re-introduce home medications slowly (carvedilol , hydralazine) WDW Dr. Cortés. (En Borrero MD, R3) Problem Qualifiers (1) Sepsis: Qualified Codes: A41.9 - Sepsis, unspecified organism (2) HTN (hypertension): Qualified Codes: I10 - Essential (primary) hypertension (3) DM2 (diabetes mellitus, type 2): Qualified Codes: E11.22 - Type 2 diabetes mellitus with diabetic chronic kidney disease; N18.6 - End stage renal disease; Z99.2 - Dependence on renal dialysis (4) Hypothyroidism: Qualified Codes: E03.9 - Hypothyroidism, unspecified (5) CAD (coronary artery disease): Qualified Codes: I25.10 - Atherosclerotic heart disease of [place] coronary artery without angina pectoris En Borrero MD, R3 Jul 25, 2017 07:24 Dm Cortés Jr., MD Jul 25, 2017 13:17
[2017-07-25 07:58] VITALS: BP 119/53; PULSE 77; RESP 16; O2SAT 95
[2017-07-25] MEDS: PANTOPRAZOLE SOD 40 MG DELAYED RELEASE TAB PO SCH (08:34)
[2017-07-25] MEDS: BUMETANIDE 1 MG TAB PO SCH ×2 (08:35→17:29)
[2017-07-25] MEDS: ASPIRIN 81 MG CHEW TAB CHEW SCH (08:35)
[2017-07-25] MEDS: SODIUM CHLORIDE 0.9% FLUSH 10 ML FLUSH IV FLUSH SCH ×2 (08:36→20:39)
[2017-07-25 08:38] VITALS: BP 115/57; PULSE 78; RESP 18; TEMP 98; O2SAT 96
[2017-07-25] MEDS: INSULIN ASPART SUPPLEMENTAL SCALE SQ SCH ×4 (08:48→20:37)
[2017-07-25] MEDS: TICAGRELOR 90 MG TAB PO SCH ×2 (08:50→20:38)
[2017-07-25] MEDS ORDERED: SODIUM CHLOR 0.9% 1000 ML INJ 1,000 ML IV PRN (08:57)
[2017-07-25] MEDS ORDERED: SODIUM CHLOR 0.9% 1000 ML INJ 1,000 ML OTHER PRN ×2 (08:57)
[2017-07-25] MEDS ORDERED: GENTAMICIN SULFATE 20 MG/2 ML VIAL OTHER PRN (09:00)
[2017-07-25] MEDS ORDERED: diphenhydrAMINE HCL 25 MG CAP PO PRN (09:00)
[2017-07-25] MEDS ORDERED: GELATIN 12 MM/7 MM FOAM TOP PRN (09:00)
[2017-07-25] MEDS ORDERED: ALBUMIN 25% INJ 100 ML IV PRN (09:00)
[2017-07-25] MEDS ORDERED: cloNIDine HCL 0.1 MG TAB PO PRN (09:00)
[2017-07-25] MEDS ORDERED: HEPARIN SODIUM - IV 10,000 UNITS/10 ML VIAL PRN (09:00)
[2017-07-25] MEDS ORDERED: ACETAMINOPHEN 325 MG TAB PO PRN (09:00)
[2017-07-25] MEDS ORDERED: HEPARIN SODIUM - IV 10,000 UNITS/10 ML VIAL IV FLUSH PRN (09:00)
[2017-07-25] MEDS ORDERED: MANNITOL 12.5 GM/50 ML VIAL IV PRN (09:00)
[2017-07-25] MEDS ORDERED: NITROGLYCERIN 0.4 MG SL 25 TABS/BTL SL PRN (09:00)
[2017-07-25] MEDS ORDERED: ONDANSETRON HCL 4 MG/2 ML VIAL IV PUSH PRN (09:00)
[2017-07-25] MEDS ORDERED: PNEUMOCOCCAL POLYVALENT INJ 25 MCG/0.5 ML SYR IM ONE (09:00)
[2017-07-25] MEDS ORDERED: SODIUM CHLORIDE 0.9% FLUSH 10 ML FLUSH IV FLUSH PRN (09:00)
[2017-07-25] MEDS ORDERED: ACETAMINOPHEN/HYDROcodone 325 MG/5 MG TAB PO PRN (09:15)
[2017-07-25] MEDS ORDERED: VANCOMYCIN INJ 1,000 MG in SODIUM CHLOR 0.9% 250 ML INJ 250 ML IV SCH (09:30)
[2017-07-25] MEDS ORDERED: VANCOMYCIN INJ 1,000 MG in SODIUM CHLOR 0.9% 250 ML INJ 250 ML IV ONE (10:15)
--- NOTE | 2017-07-25 11:10 | PD.CONS ---
[facility] Service Nephrology Consult Requested By Reason for Consult ESRD on HD Primary Care Physician Red Staley , Heather Mott MD History of Present Illness This is a 61 y/o female patient with PMH listed below. She finished dialysis yesterday and suddenly became nauseated with vomiting. Imaging on arrival (CT) shows colitis and diverticulosis. She is NPO and awaiting GI evaluation. She was recently thought to have reached ESRD, was hopeful she would recover after LEEANN that resulted after multiple cardiac issues and cardiac cath. Other hx of DM II and metabolic bone disorder. We were consulted to assist with management. She is dialyzed Mon-Mon-Mon. (Cris Telles) Review of Systems Gastrointestinal: COMPLAINS OF: Abdominal pain, Nausea, Vomiting (Cris Telles) Past Family Social History Allergies: Coded Allergies: Sulfa (Sulfonamide Antibiotics) (Unverified Adverse Reaction, Mild, RASH, 06/06/17) sulfamethoxazole (Unverified Adverse Reaction, Mild, Rash, 06/06/17) trimethoprim (Unverified Adverse Reaction, Mild, Rash, 06/06/17) Past Medical History Suspected ESRD due to diabetic nephropathy COPD Diabetes type 2 Hypertension Hyperlipidemia Peripheral neuropathy Gastric ulcer Nonspecific colitis Diverticulosis Hemorrhoids Tobacco abuse Past Surgical History Amputation of the right third toe Appendectomy Reported Medications Xanax (Alprazolam) 0.5 Mg Tab 0.5 Mg PO Q6H PRN Coreg (Carvedilol) 12.5 Mg Tab 25 Mg PO Q12HR Hydralazine HCl 25 Mg Tablet 25 Mg PO Q8HR Ferosul (Ferrous Sulfate) 325 Mg (65 Mg Iron) Tablet 325 Mg PO DAILY Pantoprazole (Pantoprazole Sodium) 40 Mg Tab 40 Mg PO DAILY Metoclopramide (Metoclopramide HCl) 10 Mg Tab 5 Mg PO BIDAC Brilinta (Ticagrelor) 90 Mg Tab 90 Mg PO BID Rocaltrol (Calcitriol) 0.25 Mcg Cap 0.25 Mcg PO DAILY Bumetanide 1 Mg Tab 2 Mg PO BID@09,18 Sodium Chloride 1 Gram Tab 1 Gm PO BID Restoril (Temazepam) 15 Mg Cap 15 Mg PO HS PRN Aspirin 81 Mg Chew 81 Mg CHEW DAILY Thera Tablet (Multivitamin with Folic Acid) 400 Mcg Tablet 1 Tab PO DAILY Gnp Senna Plus 8.6-50 mg (Sennosides-Docusate Sodium) 8.6 Mg-50 Mg Tab 1 Tab PO BID Lipitor (Atorvastatin Calcium) 10 Mg Tab 10 Mg PO HS Synthroid (Levothyroxine Sodium) 50 Mcg Tab 50 Mcg PO DAILY Vitamin B-12 (Cyanocobalamin) 500 Mcg Tab 500 Mcg PO DAILY Magnesium Oxide 400 Mg Tab 800 Mg PO BID Active Ordered Medications Last 72 hours Impressions Chest X-Ray 07/24/171928 Signed Impressions: Service Date/Time: Monday, July 24, 2017 19:36 - CONCLUSION: No acute intrathoracic disease. Stable examination. Diogenes Bowie MD Abdomen/Pelvis CT 07/24/171928 Signed Impressions: Service Date/Time: Monday, July 24, 2017 19:53 - CONCLUSION: 1. There is inflammatory changes with thickening of the bowel wall involving the cecum, right colon and a portion of the transverse colon characteristic of colitis. No mechanical obstruction is seen. 2. Scattered diverticulosis of the descending and sigmoid colon without inflammatory changes. 3. Possible tiny 1 mm stone midpole right kidney without obstruction. 4. Stable 1.4 cm left renal cyst. 5. Sludge versus small gallstones in the gallbladder. No biliary tract obstruction. 6. Slowly resolving right inguinal hematoma. Diogenes Bowie MD Family History Non contributory Social History Former Smoker Lives locally Needs assistance (Cris Telles) Physical Exam Vital Signs Vital Signs Date Time Temp Pulse Resp B/P (MAP) Pulse Ox O2 Delivery O2 Flow Rate FiO2 07/25/17 08:38 98.0 78 18 115/57 (76) 96 07/25/17 07:58 77 16 119/53 (75) 95 07/25/17 03:55 98.6 79 18 115/60 (78) 96 07/24/17 23:53 98.2 95 18 142/65 (90) 99 07/24/17 23:45 07/24/17 23:10 98.8 93 16 141/67 (91) 98 Room Air 07/24/17 19:48 16 07/24/17 19:42 98 Room Air 07/24/17 19:42 16 98 Room Air 07/24/17 19:09 101.1 95 18 193/81 (118) 97 Physical Exam female, awake and alert, not in distress On room air, lungs clear. S1/S2, RRR no murmurs PC right chest Abdomen soft, obese, non tender Ext: no edema Laboratory Laboratory Tests Test 07/24/17 19:50 07/25/17 06:20 White Blood Count 15.7 17.2 Red Blood Count 3.94 3.57 Hemoglobin 13.2 12.2 Hematocrit 39.6 36.7 Mean Corpuscular Volume 100.6 102.8 Mean Corpuscular Hemoglobin 33.6 34.2 Mean Corpuscular Hemoglobin Concent 33.4 33.3 Red Cell Distribution Width 13.7 14.1 Platelet Count 201 192 Mean Platelet Volume 7.6 7.7 Neutrophils (%) (Auto) 86.4 78.3 Lymphocytes (%) (Auto) 8.2 12.2 Monocytes (%) (Auto) 5.3 9.1 Eosinophils (%) (Auto) 0.0 0.1 Basophils (%) (Auto) 0.1 0.3 Neutrophils # (Auto) 13.5 13.5 Lymphocytes # (Auto) 1.3 2.1 Monocytes # (Auto) 0.8 1.6 Eosinophils # (Auto) 0.0 0.0 Basophils # (Auto) 0.0 0.0 CBC Comment DIFF FINAL DIFF FINAL Differential Comment Blood Urea Nitrogen 35 39 Creatinine 3.27 3.94 Random Glucose 154 144 Total Protein 6.8 5.7 Albumin 3.2 2.7 Calcium Level 8.2 8.2 Alkaline Phosphatase 92 71 Aspartate Amino Transf (AST/SGOT) 23 14 Alanine Aminotransferase (ALT/SGPT) 16 11 Total Bilirubin 0.4 0.4 Sodium Level 134 137 Potassium Level 4.0 4.1 Chloride Level 104 105 Carbon Dioxide Level 21.1 20.7 Anion Gap 9 11 Estimat Glomerular Filtration Rate 14 12 Lactic Acid Level 1.9 Lipase 122 Date/Time Source Procedure Growth Status 07/24/17 19:50 Blood Peripheral Aerobic Blood Culture Pending Received 07/24/17 19:50 Blood Peripheral Anaerobic Blood Culture Pending Received 07/25/17 08:00 Stool Stool Cryptosporidium Exam Pending Received 07/25/17 08:00 Stool Stool Stool Pus (CHUCK) Pending Received 07/25/17 08:00 Stool Stool Giardia Antigen (CHUCK) Pending Received 07/24/17 20:15 Nasal Aspirate Influenza Types A,B Antigen (CHUCK) - Final NEGATIVE FOR FLU A AND B ANTIGEN.... Complete (Cris Telles) Result Diagram: 07/25/1761907/25/17619 Imaging Last 72 hours Impressions Chest X-Ray 07/24/171928 Signed Impressions: Service Date/Time: Monday, July 24, 2017 19:36 - CONCLUSION: No acute intrathoracic disease. Stable examination. Diogenes Bowie MD Abdomen/Pelvis CT 07/24/171928 Signed Impressions: Service Date/Time: Monday, July 24, 2017 19:53 - CONCLUSION: 1. There is inflammatory changes with thickening of the bowel wall involving the cecum, right colon and a portion of the transverse colon characteristic of colitis. No mechanical obstruction is seen. 2. Scattered diverticulosis of the descending and sigmoid colon without inflammatory changes. 3. Possible tiny 1 mm stone midpole right kidney without obstruction. 4. Stable 1.4 cm left renal cyst. 5. Sludge versus small gallstones in the gallbladder. No biliary tract obstruction. 6. Slowly resolving right inguinal hematoma. Diogenes Bowie MD (Cris Telles) Assessment and Plan Problem List: (1) CKD (chronic kidney disease) stage 5, GFR less than 15 ml/min ICD Codes: N18.5 - Chronic kidney disease, stage 5 Status: Chronic Plan: ESRD due to diabetic nephropathy, has been on HD since April, not likely to recover Repeat labs in AM HD tomorrow and MWF Permcath for HD Check phosphorus in AM IVF were stopped. Epogen not required. (2) Colitis ICD Codes: K52.9 - Noninfective gastroenteritis and colitis, unspecified Status: Acute Plan: Currently NPO GI to be consulted Given vancomycin (3) HTN (hypertension) ICD Codes: I10 - HTN (hypertension) Status: Chronic Plan: Resume home medications (4) DM2 (diabetes mellitus, type 2) ICD Codes: E11.9 - Type 2 diabetes mellitus without complications Status: Chronic Plan: Insulin as needed, maintain glucose 140-180 mg/dL. (Cris Telles) Assessment and Plan patient was seen and examined. She likely has reached ESRD. Admitted with GI symptoms, CT report reviewed. Had fever yesterday, also has leukocytosis. Patient is on Cipro, and Flagyl. Received a dose of Vancomycin. (Fantasma Corral MD) Problem Qualifiers (1) HTN (hypertension): Qualified Codes: I10 - Essential (primary) hypertension (2) DM2 (diabetes mellitus, type 2): Qualified Codes: E11.22 - Type 2 diabetes mellitus with diabetic chronic kidney disease; N18.6 - End stage renal disease; Z99.2 - Dependence on renal dialysis Cris Telles Jul 25, 2017 11:10 Fantasma Corral MD Jul 25, 2017 14:29
[2017-07-25 11:24] VITALS: BP 111/55; PULSE 73; RESP 18; TEMP 98.8; O2SAT 98
[2017-07-25 14:39] VITALS: BP 134/60; PULSE 78; RESP 16; TEMP 98.8; O2SAT 98
[2017-07-25] MEDS: ATORVASTATIN 10 MG TAB PO SCH (20:38)
[2017-07-25 20:47] LABS: BILIRUBIN, URINE NEG (NEG); BLOOD, URINE NEG (NEG); GLUCOSE,URINE NEG (NEG); KETONE, URINE NEG (NEG); NITRITE,URINE NEG (NEG); PH, URINE 5.5 (5.0-8.5); URINE COLOR YELLOW (YELLW/STRAW); URINE LEUKOCYTE ESTERASE NEG (NEG)
[2017-07-25] MEDS ORDERED: CIPROFLOXACIN 400 MG PREMIX 200 ML IV SCH (21:00)
[2017-07-26] VITALS (8 sets, daily range): BP systolic 105–139; BP diastolic 52–63; PULSE 65–86; RESP 16–18; TEMP 97.9–98.9; O2SAT 95–98
[2017-07-26] MEDS: ACETAMINOPHEN/HYDROcodone 325 MG/5 MG TAB PO PRN ×3 (00:59→17:33)
[2017-07-26] MEDS: LEVOTHYROXINE SODIUM 50 MCG TAB PO SCH (05:54)
[2017-07-26] MEDS: metroNIDAZOLE 500 MG INJ 100 ML IV SCH ×3 (05:55→21:05)
[2017-07-26] MEDS: TICAGRELOR 90 MG TAB PO SCH ×2 (07:49→21:03)
[2017-07-26] MEDS: ASPIRIN 81 MG CHEW TAB CHEW SCH (07:49)
[2017-07-26] MEDS: PANTOPRAZOLE SOD 40 MG DELAYED RELEASE TAB PO SCH (07:49)
[2017-07-26] MEDS: BUMETANIDE 1 MG TAB PO SCH ×2 (07:49→17:32)
[2017-07-26] MEDS: INSULIN ASPART SUPPLEMENTAL SCALE SQ SCH ×4 (07:50→21:00)
[2017-07-26] MEDS: SODIUM CHLORIDE 0.9% FLUSH 10 ML FLUSH IV FLUSH SCH ×2 (07:51→21:02)
[2017-07-26 08:23] LABS: AUTOMATED NEUTROPHIL # 10.9 TH/MM3 (1.8-7.7); BASOPHIL % 0.3 % (0.0-2.0); EOSINOPHIL # 0.2 TH/MM3 (0-0.4); EOSINOPHIL % 1.6 % (0.0-4.0); HEMATOCRIT 32.6 % (35.0-46.0); HEMOGLOBIN 10.8 GM/DL (11.6-15.3); LYMPH % 12.4 % (9.0-44.0); LYMPHOCYTE # 1.8 TH/MM3 (1.0-4.8); MEAN CELL VOLUME 102.8 FL (80.0-100.0); MEAN CORPUSCULAR HEMOGLOBIN 34.1 PG (27.0-34.0); MEAN CORPUSCULAR HGB CONC 33.2 % (32.0-36.0); MEAN PLATELET VOLUME 7.6 FL (7.0-11.0); MONO % 8.7 % (0.0-8.0); MONOCYTE # 1.2 TH/MM3 (0-0.9); PLATELET COUNT 164 TH/MM3 (150-450); RED BLOOD COUNT 3.17 MIL/MM3 (4.00-5.30); WHITE BLOOD COUNT 14.1 TH/MM3 (4.0-11.0)
[2017-07-26 09:01] LABS: ALBUMIN 2.4 GM/DL (3.4-5.0); ALKALINE PHOSPHATASE 70 U/L (45-117); ALT (GPT) 11 U/L (10-53); AST (GOT) 13 U/L (15-37); BICARBONATE 21.5 MEQ/L (21.0-32.0); BLOOD UREA NITROGEN 52 MG/DL (7-18); CALCIUM 7.9 MG/DL (8.5-10.1); CHLORIDE 105 MEQ/L (98-107); CREATININE 5.04 MG/DL (0.50-1.00); GLOMERULAR FILTRATION RATE 9 ML/MIN (>89); GLUCOSE,RANDOM 85 MG/DL (74-106); SODIUM (NA) 137 MEQ/L (136-145); TOTAL BILIRUBIN ADULT 0.4 MG/DL (0.2-1.0); TOTAL PROTEIN 5.8 GM/DL (6.4-8.2)
--- NOTE | 2017-07-26 09:25 | HHI.NPPN ---
Subjective Renal Failure: Chronic, End Stage Renal Disease Interval History Tested positive for C diff. Reporting abdominal discomfort throughout the night and this morning. On clear liquid diet. Due for dialysis today. (Cris Telles) Review of Systems Gastrointestinal Gastrointestinal: Abdominal Pain, Nausea & Vomiting (Cris Telles) Objective Data Data Vital Signs Date Time Temp Pulse Resp B/P (MAP) Pulse Ox O2 Delivery O2 Flow Rate FiO2 07/26/17 07:40 97.9 65 16 133/60 (84) 97 07/26/17 07:35 95 21 07/26/17 06:17 21 07/26/17 04:37 98.2 66 18 112/55 (74) 97 07/26/17 01:20 98.9 75 18 125/58 (80) 98 07/25/17 14:39 98.8 78 16 134/60 (84) 98 07/25/17 11:24 98.8 73 18 111/55 (73) 98 (Cris Telles) -: 07/26/17 0720 07/26/17 0710 Imaging Last 72 hours Impressions Chest X-Ray 07/24/171928 Signed Impressions: Service Date/Time: Monday, July 24, 2017 19:36 - CONCLUSION: No acute intrathoracic disease. Stable examination. Diogenes Bowie MD Abdomen/Pelvis CT 07/24/171928 Signed Impressions: Service Date/Time: Monday, July 24, 2017 19:53 - CONCLUSION: 1. There is inflammatory changes with thickening of the bowel wall involving the cecum, right colon and a portion of the transverse colon characteristic of colitis. No mechanical obstruction is seen. 2. Scattered diverticulosis of the descending and sigmoid colon without inflammatory changes. 3. Possible tiny 1 mm stone midpole right kidney without obstruction. 4. Stable 1.4 cm left renal cyst. 5. Sludge versus small gallstones in the gallbladder. No biliary tract obstruction. 6. Slowly resolving right inguinal hematoma. Diogenes Bowie MD (Cris Telles) Physical Exam General Appearance: Well Developed, Well Nourished Appearance Remarks Appears uncomfortable , some facial edema (Cris Telles) Eyes Eye Exam: Pupils Equal (Cris Telles) Throat Throat Exam: Oral Mucosa [place] & Moist (Cris Telles) Pulmonary Resp Exam: Clear Bilaterally, Breath Sounds Equal (Cris Telles) Cardiology CV Exam: Regular, Normal Sinus Rhythm (Cris Telles) Gastrointestinal/Abdomen GI Exam: Soft, Bowel Sounds Present, Positive Bowel Movement GI Remarks slightly tender, pain generalized (Cris Telles) Musculoskeletal MS Exam: Joints Intact, Normal Tone (Cris Telles) Integumentary Skin Exam: Warm, Dry, Intact (Cris Telles) Extremeties Extremities Exam: No Edema, Pedal Pulses Palpable (Cris Telles) Neurologic Neuro Exam: Alert, Awake, Oriented, Speech Clear, Moving All Extremities (Cris Telles) Psychiatric Psych Exam: Appropriate Responses (Cris Tleles) Assessment/Plan Discussed Condition With: Patient Assessment Summary: Anemia of CKD, End Stage Renal Disease Problem List: (1) CKD (chronic kidney disease) stage 5, GFR less than 15 ml/min ICD Codes: N18.5 - Chronic kidney disease, stage 5 Status: Chronic Plan: She has reached ESRD, has underlying diabetic nephropathy, has been on HD since April HD MWF, due today Permcath in place for HD; will need AVF placement in the future Epogen not required. (2) Colitis ICD Codes: K52.9 - Noninfective gastroenteritis and colitis, unspecified Status: Acute Plan: + C diff, on IV Flagyl and Cipro, given Vancomycin on arrival Clear liquid diet (3) HTN (hypertension) ICD Codes: I10 - HTN (hypertension) Status: Chronic Plan: Continue home medications (4) DM2 (diabetes mellitus, type 2) ICD Codes: E11.9 - Type 2 diabetes mellitus without complications Status: Chronic Plan: Insulin as needed, maintain glucose 140-180 mg/dL. (Cris Telles) Plan patient was seen and examined. Has C.diff. Complains of abdominal cramping. Stop IV Cipro. Consider oral Vancomycin. Continue IV Flagyl. She has reached ESRD. (Fantasma Corral MD) Problem Qualifiers (1) HTN (hypertension): Qualified Codes: I10 - Essential (primary) hypertension (2) DM2 (diabetes mellitus, type 2): Qualified Codes: E11.22 - Type 2 diabetes mellitus with diabetic chronic kidney disease; N18.6 - End stage renal disease; Z99.2 - Dependence on renal dialysis Cris Telles Jul 26, 2017 09:25 Fantasma Corral MD Jul 26, 2017 10:17
[2017-07-26] MEDS ORDERED: MORPHINE SULFATE 2 MG/ML INJ IM ONE (10:30)
--- NOTE | 2017-07-26 11:17 | HHI.FPPN ---
Subjective Remarks Recent is doing well today. Her pain is rated as an 8 out of 10. It is in her right upper quadrant. She has been having soft bowel movements, that are not bloody or black. The itching has stopped since stopping the ciprofloxacin. He is requesting to advance her diet. She is walking around the room without difficulty, and this helps with her pain. (En Borrero MD, R3) Objective Vitals Vital Signs Date Time Temp Pulse Resp B/P (MAP) Pulse Ox O2 Delivery O2 Flow Rate FiO2 07/26/17 07:40 97.9 65 16 133/60 (84) 97 07/26/17 07:35 95 21 07/26/17 06:17 21 07/26/17 04:37 98.2 66 18 112/55 (74) 97 07/26/17 01:20 98.9 75 18 125/58 (80) 98 07/25/17 14:39 98.8 78 16 134/60 (84) 98 07/25/17 11:24 98.8 73 18 111/55 (73) 98 I/O 07/25/17 07/25/17 07/25/17 07/26/17 07/26/17 07/26/17 07:00 15:00 23:00 07:00 15:00 23:00 Intake Total 115 ml Balance 115 ml Intake Oral 115 ml # Voids 1 1 # Bowel Movements 2 (En Borrero MD, R3) Result Diagram: 07/26/17 0720 07/26/17 0710 Objective Remarks GEN: NAD but appears uncomfortable. non toxic HEENT: PERRL, some conjunctival icterus, PEERL EOMI RESP: Coarse breath sounds throughout but no area of decreased aeration or crackles. CV: RRR, faint heart sounds, pulses equal to all extremities, no lower ext edema. GI: Large midline scar just inferior to the umbilicus, slightly distended, no rebound, but voluntary guarding on deep palpation, hyperactive BS. MSK: 5/5 strength throughout. (En Borrero MD, R3) A/P Assessment and Plan 61-year-old female with history of diabetes, chronic kidney disease on dialysis , NSTEMI, hypothyroidism who presents with diffuse abdominal pain, nausea, vomiting, diarrhea. She meets sepsis criteria on admission, no evidence of severe sepsis or shock. Found to be positive for C. difficile. Disposition: Likely within the next 24 hours, pending clinical improvement. (En Borrero MD, R3) Attending Attestation I examined the patient at 8:45 this morning. Vomiting and diarrhea have resolved. She continues to have mild, diffuse abdominal pain. Mild tenderness to palpation in the RUQ. Bowel sounds normal. I have discussed the case with Dr. Borrero. I agree with the assessment and plan as documented by Dr. Borrero. (LazaroatteDm Jr., MD) Problem List: (1) Sepsis ICD Codes: A41.9 - Sepsis, unspecified organism Status: Acute Plan: Patient meeting sepsis criteria on admission 07/24/17 via fever of 101.1F, heart rate greater than 90, CBC 15.7 with left shift. No lactic acidosis. Suspected sources GI given CT findings suggestive of colitis, and symptoms of nausea, vomiting, and diarrhea. Of note, patient did receive prescription for Keflex for UTI recently. Status post 1 dose of ciprofloxacin 400 mg IV and Flagyl 500 mg IV in ED. Patient did not receive fluid bolus due to chronic kidney disease on dialysis. * Disontinue ciprofloxacin at 400 mg IV, renally dosed every 24 hours * Continue Flagyl 500 mg IV every 8 hours * Received 1 g of IV vancomycin, we'll switch to oral vancomycin 125 mg 4 times a day. Discharge home with by mouth Flagyl. * .Stool studies showed rare WBCs, positive C. difficile toxin PCR, and negative rotavirus. (2) Colitis ICD Codes: K52.9 - Noninfective gastroenteritis and colitis, unspecified Status: Acute Plan: Patient with a CT scan showing inflammatory changes with thickening of the bowel wall involving the cecum, right colon and a portion of the transverse colon characteristic of colitis. There is also scattered diverticulosis without inflammatory changes. There is also a slowly resolving right inguinal hematoma noted. Persistent with Clostridium difficile infection (CDI). (3) HTN (hypertension) ICD Codes: I10 - HTN (hypertension) Status: Chronic Plan: Patient presented with HTN urgency, received PO home medications ( hydralazine) - resolved. (4) CKD (chronic kidney disease) stage 5, GFR less than 15 ml/min ICD Codes: N18.5 - Chronic kidney disease, stage 5 Status: Chronic Plan: CKD on dialysis for the last few months. Makes some urine. Cafeteria Assistant is Dr. Corral. Patient receives dialysis via chest port on Monday, Monday, Monday. Last session was 07/24/17. * Nephrology consulted for routine hemodialysis and renal needs. Will be going to dialysis today to. * Recheck BMP in the morning. * Cautious IV fluids (indicated given no UOP since admission, meeting sepsis criteria) (5) DM2 (diabetes mellitus, type 2) ICD Codes: E11.9 - Type 2 diabetes mellitus without complications Status: Chronic Plan: NPO for now so will check blood glucose bedside more frequently given reported hx of hypoglycemia. Glipizide recently discontinued given hx of hypoglycemia. * Accucheks 3am, 8am, 12pm, 5pm, 9pm * Low-dose supplemental Novolog ordered for PRN needs (6) Hypothyroidism ICD Codes: E03.9 - Hypothyroidism, unspecified Status: Chronic Plan: Patient on levothyroxine 50 mcg daily. Will continue home dose. (7) CAD (coronary artery disease) ICD Codes: I25.10 - Atherosclerotic heart disease of [place] coronary artery without angina pectoris Status: Chronic Plan: Stable, asymptomatic. Continue ASA, statin, Brilinta. Monitor for signs of bleeding. (8) Anxiety ICD Codes: F41.9 - Anxiety disorder, unspecified Status: Chronic Plan: Patient reports anxiety with Restoril 15mg PO hs use and PRN Xanax ( reportedly using once daily at most) * Xanax to be ordered 0.5mg BID PRN, will monitor inpt needs and home meds to be adjusted to reflect this (9) Nutrition, metabolism, and development symptoms ICD Codes: R63.8 - Other symptoms and signs concerning food and fluid intake Status: Acute Plan: Fluids: NS @ 75ml/hr. Electrolytes: monitor and replete as needed, repeat CBC and BMP in AM Nutrition: NPO overnight, reintroduce renal diet once tolerating by mouth DVT Prophylaxis: Early ambulation. Bilateral SCDs. GI Prophylaxis: home dose pantoprazole 40 mg daily PRN anti-HTN: Will monitor BP, re-introduce home medications slowly (carvedilol , hydralazine) WDW Dr. Cortés. (En Borrero MD, R3) Problem Qualifiers (1) Sepsis: Qualified Codes: A41.9 - Sepsis, unspecified organism (2) HTN (hypertension): Qualified Codes: I10 - Essential (primary) hypertension (3) DM2 (diabetes mellitus, type 2): Qualified Codes: E11.22 - Type 2 diabetes mellitus with diabetic chronic kidney disease; N18.6 - End stage renal disease; Z99.2 - Dependence on renal dialysis (4) Hypothyroidism: Qualified Codes: E03.9 - Hypothyroidism, unspecified (5) CAD (coronary artery disease): Qualified Codes: I25.10 - Atherosclerotic heart disease of [place] coronary artery without angina pectoris En Borrero MD, R3 Jul 26, 2017 11:17 LazaroattDm maloney Jr., MD Jul 26, 2017 16:54
[2017-07-26] MEDS: VANCOMYCIN 500 MG VIAL (FOR ORAL USE ONLY) PO SCH ×3 (13:26→22:02)
[2017-07-26] MEDS: ATORVASTATIN 10 MG TAB PO SCH (21:04)
[2017-07-27 03:07] VITALS: BP 156/74; PULSE 71; RESP 20; TEMP 98.8; O2SAT 97
[2017-07-27] MEDS: ACETAMINOPHEN/HYDROcodone 325 MG/5 MG TAB PO PRN (04:36)
[2017-07-27] MEDS: metroNIDAZOLE 500 MG INJ 100 ML IV SCH (06:08)
[2017-07-27] MEDS: LEVOTHYROXINE SODIUM 50 MCG TAB PO SCH (06:08)
--- NOTE | 2017-07-27 07:06 | HHI.FPPN ---
Subjective Remarks Patient feeling better today however still having RUQ pain. 8/10 in severity. Stabbing. Tried eating foods yesterday however this made her nauseated. She is able to keep down liquids. She is asking when she can go home. She denies blood in her stools. She denies SOB. She is ambulating without difficulty. (En Borrero MD, R3) Objective Vitals Vital Signs Date Time Temp Pulse Resp B/P (MAP) Pulse Ox O2 Delivery O2 Flow Rate FiO2 07/27/17 03:07 98.8 71 20 156/74 (101) 97 07/26/17 19:52 98.4 67 18 116/60 (78) 97 07/26/17 19:16 96 07/26/17 17:30 98.4 86 18 139/63 (88) 98 07/26/17 12:47 98.6 68 16 105/52 (69) 95 07/26/17 07:40 97.9 65 16 133/60 (84) 97 07/26/17 07:35 95 21 I/O 07/26/17 07/26/17 07/26/17 07/27/17 07/27/17 07/27/17 07:00 15:00 23:00 07:00 15:00 23:00 Intake Total 115 ml 100 ml Balance 115 ml 100 ml Intake Oral 115 ml IV Total 100 ml # Voids 1 (En Borrero MD, R3) Result Diagram: 07/26/17 0720 07/26/17 0710 Objective Remarks GEN: NAD but appears uncomfortable. non toxic HEENT: PERRL, some conjunctival icterus, PEERL EOMI RESP: Coarse breath sounds throughout but no area of decreased aeration or crackles. CV: RRR, faint heart sounds, pulses equal to all extremities, no lower ext edema. GI: Large midline scar just inferior to the umbilicus, slightly distended, no rebound, but voluntary guarding on deep palpation, hyperactive BS. TTP RUQ and RLQ. MSK: 5/5 strength throughout. (En Borrero MD, R3) A/P Assessment and Plan 61-year-old female with history of diabetes, chronic kidney disease on dialysis , NSTEMI, hypothyroidism who presents with diffuse abdominal pain, nausea, vomiting, diarrhea. She meets sepsis criteria on admission, no evidence of severe sepsis or shock. Found to be positive for C. difficile. Disposition: 07/27/2017 with PO antibiotics. (En Borrero MD, R3) Attending Attestation I examined the patient at 1150 today. Her was at the bedside. She denied nausea and vomiting. Diarrhea had resolved. She had some moderate residual right sided abdominal pain. The patient was able to ambulate and was tolerating her diet. The case was discussed with Dr. Borrero. I agree with the assessment and plan to discharge home as documented by Dr. Borrero. (PrevatteDm Jr., MD) Problem List: (1) Sepsis ICD Codes: A41.9 - Sepsis, unspecified organism Status: Acute Plan: Patient meeting sepsis criteria on admission 07/24/17 via fever of 101.1F, heart rate greater than 90, CBC 15.7 with left shift. No lactic acidosis. Suspected sources GI given CT findings suggestive of colitis, and symptoms of nausea, vomiting, and diarrhea. Of note, patient did receive prescription for Keflex for UTI recently. Status post 1 dose of ciprofloxacin 400 mg IV and Flagyl 500 mg IV in ED. Patient did not receive fluid bolus due to chronic kidney disease on dialysis. * Disontinue ciprofloxacin at 400 mg IV, renally dosed every 24 hours * Transition from IV flagyl to PO. * Received 1 g of IV vancomycin, we'll switch to oral vancomycin 125 mg 4 times a day. Discharge home with by mouth Flagyl. * Stool studies showed rare WBCs, positive C. difficile toxin PCR, and negative rotavirus. (2) Colitis ICD Codes: K52.9 - Noninfective gastroenteritis and colitis, unspecified Status: Acute Plan: Patient with a CT scan showing inflammatory changes with thickening of the bowel wall involving the cecum, right colon and a portion of the transverse colon characteristic of colitis. There is also scattered diverticulosis without inflammatory changes. There is also a slowly resolving right inguinal hematoma noted. Persistent with Clostridium difficile infection (CDI). (3) HTN (hypertension) ICD Codes: I10 - HTN (hypertension) Status: Chronic Plan: Patient presented with HTN urgency, received PO home medications ( hydralazine) - resolved. (4) CKD (chronic kidney disease) stage 5, GFR less than 15 ml/min ICD Codes: N18.5 - Chronic kidney disease, stage 5 Status: Chronic Plan: CKD on dialysis for the last few months. Makes some urine. Lag Screwer is Dr. Corral. Patient receives dialysis via chest port on Monday, Monday, Monday. Last session was 07/24/17. * Nephrology consulted for routine hemodialysis and renal needs. Received dialysis on 07/26/2017. * Resume outpatient schedule as recommended by nephrology (Dr. Corral). * Cautious IV fluids (indicated given no UOP since admission, meeting sepsis criteria) (5) DM2 (diabetes mellitus, type 2) ICD Codes: E11.9 - Type 2 diabetes mellitus without complications Status: Chronic Plan: NPO for now so will check blood glucose bedside more frequently given reported hx of hypoglycemia. Glipizide recently discontinued given hx of hypoglycemia. * Accucheks 3am, 8am, 12pm, 5pm, 9pm * Low-dose supplemental Novolog ordered for PRN needs (6) Hypothyroidism ICD Codes: E03.9 - Hypothyroidism, unspecified Status: Chronic Plan: Patient on levothyroxine 50 mcg daily. Will continue home dose. (7) CAD (coronary artery disease) ICD Codes: I25.10 - Atherosclerotic heart disease of [place] coronary artery without angina pectoris Status: Chronic Plan: Stable, asymptomatic. Continue ASA, statin, Brilinta. Monitor for signs of bleeding. (8) Anxiety ICD Codes: F41.9 - Anxiety disorder, unspecified Status: Chronic Plan: Patient reports anxiety with Restoril 15mg PO hs use and PRN Xanax ( reportedly using once daily at most) * Xanax to be ordered 0.5mg BID PRN, will monitor inpt needs and home meds to be adjusted to reflect this (9) Nutrition, metabolism, and development symptoms ICD Codes: R63.8 - Other symptoms and signs concerning food and fluid intake Status: Acute Plan: Fluids: Transition to PO. Electrolytes: monitor and replete as needed. Nutrition: Renal diet. DVT Prophylaxis: Early ambulation. Bilateral SCDs. GI Prophylaxis: home dose pantoprazole 40 mg daily PRN anti-HTN: Will monitor BP, re-introduce home medications slowly (carvedilol , hydralazine) WDW Dr. Cortés. (En Borrero MD, R3) Problem Qualifiers (1) Sepsis: Qualified Codes: A41.9 - Sepsis, unspecified organism (2) HTN (hypertension): Qualified Codes: I10 - Essential (primary) hypertension (3) DM2 (diabetes mellitus, type 2): Qualified Codes: E11.22 - Type 2 diabetes mellitus with diabetic chronic kidney disease; N18.6 - End stage renal disease; Z99.2 - Dependence on renal dialysis (4) Hypothyroidism: Qualified Codes: E03.9 - Hypothyroidism, unspecified (5) CAD (coronary artery disease): Qualified Codes: I25.10 - Atherosclerotic heart disease of [place] coronary artery without angina pectoris En Borrero MD, R3 Jul 27, 2017 07:06 Dm Cortés Jr., MD Jul 27, 2017 14:45
[2017-07-27 07:29] LABS: AUTOMATED NEUTROPHIL # 7.6 TH/MM3 (1.8-7.7); BASOPHIL % 0.3 % (0.0-2.0); EOSINOPHIL # 0.3 TH/MM3 (0-0.4); HEMATOCRIT 31.7 % (35.0-46.0); HEMOGLOBIN 10.9 GM/DL (11.6-15.3); LYMPH % 13.5 % (9.0-44.0); LYMPHOCYTE # 1.4 TH/MM3 (1.0-4.8); MEAN CELL VOLUME 100.9 FL (80.0-100.0); MEAN CORPUSCULAR HEMOGLOBIN 34.8 PG (27.0-34.0); MEAN CORPUSCULAR HGB CONC 34.5 % (32.0-36.0); MEAN PLATELET VOLUME 7.7 FL (7.0-11.0); MONO % 10.2 % (0.0-8.0); MONOCYTE # 1.1 TH/MM3 (0-0.9); PLATELET COUNT 176 TH/MM3 (150-450); RED BLOOD COUNT 3.14 MIL/MM3 (4.00-5.30); RED CELL DISTRIBUTION WIDTH 13.7 % (11.6-17.2); WHITE BLOOD COUNT 10.4 TH/MM3 (4.0-11.0)
[2017-07-27 07:53] LABS: ALBUMIN 2.4 GM/DL (3.4-5.0); ALKALINE PHOSPHATASE 72 U/L (45-117); ALT (GPT) 8 U/L (10-53); AST (GOT) 10 U/L (15-37); BICARBONATE 24.9 MEQ/L (21.0-32.0); BLOOD UREA NITROGEN 40 MG/DL (7-18); CALCIUM 7.8 MG/DL (8.5-10.1); CHLORIDE 103 MEQ/L (98-107); GLOMERULAR FILTRATION RATE 10 ML/MIN (>89); GLUCOSE,RANDOM 187 MG/DL (74-106); SODIUM (NA) 138 MEQ/L (136-145); TOTAL BILIRUBIN ADULT 0.3 MG/DL (0.2-1.0); TOTAL PROTEIN 5.7 GM/DL (6.4-8.2)
[2017-07-27 09:05] VITALS: BP 130/59; PULSE 70; RESP 16; TEMP 97.4; O2SAT 95
[2017-07-27] MEDS: BUMETANIDE 1 MG TAB PO SCH (09:23)
[2017-07-27] MEDS: INSULIN ASPART SUPPLEMENTAL SCALE SQ SCH (09:23)
[2017-07-27] MEDS: PANTOPRAZOLE SOD 40 MG DELAYED RELEASE TAB PO SCH (09:24)
[2017-07-27] MEDS: ASPIRIN 81 MG CHEW TAB CHEW SCH (09:24)
[2017-07-27] MEDS: TICAGRELOR 90 MG TAB PO SCH (09:24)
[2017-07-27] MEDS: SODIUM CHLORIDE 0.9% FLUSH 10 ML FLUSH IV FLUSH SCH (09:25)
--- NOTE | 2017-07-27 09:33 | HHI.NPPN ---
Subjective Renal Failure: Chronic, End Stage Renal Disease Interval History Dialyzed yesterday, blood pressure borderline low with treatment. Still with abdominal pain. (Cris Telles) Review of Systems Gastrointestinal Gastrointestinal: Abdominal Pain, Nausea & Vomiting (Cris Telles) Objective Data Data Vital Signs Date Time Temp Pulse Resp B/P (MAP) Pulse Ox O2 Delivery O2 Flow Rate FiO2 07/27/17 03:07 98.8 71 20 156/74 (101) 97 07/26/17 19:52 98.4 67 18 116/60 (78) 97 07/26/17 19:16 96 07/26/17 17:30 98.4 86 18 139/63 (88) 98 07/26/17 12:47 98.6 68 16 105/52 (69) 95 (Cris Telles) -: 07/27/17 0705 07/27/17 0705 Physical Exam General Appearance: Well Developed, Well Nourished Appearance Remarks Appears uncomfortable , some facial edema (Cris Telles) Eyes Eye Exam: Pupils Equal (Cris Telles) Throat Throat Exam: Oral Mucosa [place] & Moist (Cris Telles) Pulmonary Resp Exam: Clear Bilaterally, Breath Sounds Equal (Cris Telles) Cardiology CV Exam: Regular, Normal Sinus Rhythm (Cris Telles) Gastrointestinal/Abdomen GI Exam: Soft, Bowel Sounds Present, Positive Bowel Movement GI Remarks slightly tender, pain generalized (Cris Telles) Musculoskeletal MS Exam: Joints Intact, Normal Tone (Cris Telles) Integumentary Skin Exam: Warm, Dry, Intact (Cris Telles) Extremeties Extremities Exam: No Edema, Pedal Pulses Palpable (Cris Telles) Neurologic Neuro Exam: Alert, Awake, Oriented, Speech Clear, Moving All Extremities (Cris Telles) Psychiatric Psych Exam: Appropriate Responses (Cris Telles) Assessment/Plan Discussed Condition With: Patient Assessment Summary: Anemia of CKD, End Stage Renal Disease Problem List: (1) CKD (chronic kidney disease) stage 5, GFR less than 15 ml/min ICD Codes: N18.5 - Chronic kidney disease, stage 5 Status: Chronic Plan: She has reached ESRD, has underlying diabetic nephropathy, has been on HD since April HD MWF, had 700 ml UF yesterday Permcath in place for HD; will need AVF placement in the future Epogen not required. Repeat labs in AM if still admitted. (2) Colitis ICD Codes: K52.9 - Noninfective gastroenteritis and colitis, unspecified Status: Acute Plan: + C diff, on PO Flagyl Clear liquid diet (3) HTN (hypertension) ICD Codes: I10 - HTN (hypertension) Status: Chronic Plan: Continue home medications (4) DM2 (diabetes mellitus, type 2) ICD Codes: E11.9 - Type 2 diabetes mellitus without complications Status: Chronic Plan: Insulin as needed, maintain glucose 140-180 mg/dL. Plan She has outpatient HD arrangements if discharged. (Cris Telles) Plan patient was seen and examined. She has reached ESRD. Needs treatment for C.diff. Advised her to come to dialysis treatment tomorrow. (Fantasma Corral MD) Problem Qualifiers (1) HTN (hypertension): Qualified Codes: I10 - Essential (primary) hypertension (2) DM2 (diabetes mellitus, type 2): Qualified Codes: E11.22 - Type 2 diabetes mellitus with diabetic chronic kidney disease; N18.6 - End stage renal disease; Z99.2 - Dependence on renal dialysis Cris Telles Jul 27, 2017 09:33 Fantasma Corral MD Jul 27, 2017 16:40
[2017-07-27] MEDS ORDERED: REST15CA PO (09:37)
[2017-07-27] MEDS ORDERED: HYDR-3580 PO (09:37)
[2017-07-27] MEDS ORDERED: METR1TAB76 PO (09:37)
[2017-07-27] MEDS ORDERED: LACTTAB8 PO (09:37)
--- NOTE | 2017-07-27 09:37 | HHI.DCPOC ---
Discharge Care Plan Diagnosis: (1) C. difficile colitis (2) Colitis Goals to Promote Your Health * To prevent worsening of your condition and complications * To maintain your health at the optimal level Directions to Meet Your Goals Take your medications as prescribed Follow your dietary instruction Follow activity as directed Keep your appointments as scheduled Take your immunizations and boosters as scheduled If your symptoms worsen call your PCP, if no PCP go to Urgent Care Center or Emergency Room Smoking is Dangerous to Your Health. Avoid second hand smoke Call the 24-hour hour crisis hotline for domestic abuse at En Borrero MD, R3 Jul 27, 2017 09:37
--- NOTE | 2017-07-27 09:45 | HHI.DS ---
Discharge Summary Admission Date Jul 24, 2017 at 21:42 Admitting Diagnosis sepsis, colitis (1) Sepsis Plan: Patient meeting sepsis criteria on admission 07/24/17 via fever of 101.1F, heart rate greater than 90, CBC 15.7 with left shift. No lactic acidosis. Suspected sources GI given CT findings suggestive of colitis, and symptoms of nausea, vomiting, and diarrhea. Of note, patient did receive prescription for Keflex for UTI recently. Status post 1 dose of ciprofloxacin 400 mg IV and Flagyl 500 mg IV in ED. Patient did not receive fluid bolus due to chronic kidney disease on dialysis. * Disontinue ciprofloxacin at 400 mg IV, renally dosed every 24 hours * Transition from IV flagyl to PO. * Received 1 g of IV vancomycin, we'll switch to oral vancomycin 125 mg 4 times a day. Discharge home with by mouth Flagyl. * Stool studies showed rare WBCs, positive C. difficile toxin PCR, and negative rotavirus. ICD Codes: A41.9 - Sepsis, unspecified organism Status: Acute (2) Colitis Plan: Patient with a CT scan showing inflammatory changes with thickening of the bowel wall involving the cecum, right colon and a portion of the transverse colon characteristic of colitis. There is also scattered diverticulosis without inflammatory changes. There is also a slowly resolving right inguinal hematoma noted. Persistent with Clostridium difficile infection (CDI). ICD Codes: K52.9 - Noninfective gastroenteritis and colitis, unspecified Status: Acute (3) HTN (hypertension) Plan: Patient presented with HTN urgency, received PO home medications ( hydralazine) - resolved. ICD Codes: I10 - HTN (hypertension) Status: Chronic (4) CKD (chronic kidney disease) stage 5, GFR less than 15 ml/min Plan: CKD on dialysis for the last few months. Makes some urine. Music Orchestrator is Dr. Corral. Patient receives dialysis via chest port on Monday, Monday, Monday. Last session was 07/24/17. * Nephrology consulted for routine hemodialysis and renal needs. Received dialysis on 07/26/2017. * Resume outpatient schedule as recommended by nephrology (Dr. Corral). * Cautious IV fluids (indicated given no UOP since admission, meeting sepsis criteria) ICD Codes: N18.5 - Chronic kidney disease, stage 5 Status: Chronic (5) DM2 (diabetes mellitus, type 2) Plan: NPO for now so will check blood glucose bedside more frequently given reported hx of hypoglycemia. Glipizide recently discontinued given hx of hypoglycemia. * Accucheks 3am, 8am, 12pm, 5pm, 9pm * Low-dose supplemental Novolog ordered for PRN needs ICD Codes: E11.9 - Type 2 diabetes mellitus without complications Status: Chronic (6) Hypothyroidism Plan: Patient on levothyroxine 50 mcg daily. Will continue home dose. ICD Codes: E03.9 - Hypothyroidism, unspecified Status: Chronic (7) CAD (coronary artery disease) Plan: Stable, asymptomatic. Continue ASA, statin, Brilinta. Monitor for signs of bleeding. ICD Codes: I25.10 - Atherosclerotic heart disease of [place] coronary artery without angina pectoris Status: Chronic (8) Anxiety Plan: Patient reports anxiety with Restoril 15mg PO hs use and PRN Xanax ( reportedly using once daily at most) * Xanax to be ordered 0.5mg BID PRN, will monitor inpt needs and home meds to be adjusted to reflect this ICD Codes: F41.9 - Anxiety disorder, unspecified Status: Chronic (9) Nutrition, metabolism, and development symptoms Plan: Fluids: Transition to PO. Electrolytes: monitor and replete as needed. Nutrition: Renal diet. DVT Prophylaxis: Early ambulation. Bilateral SCDs. GI Prophylaxis: home dose pantoprazole 40 mg daily PRN anti-HTN: Will monitor BP, re-introduce home medications slowly (carvedilol , hydralazine) WDW Dr. Cortés. ICD Codes: R63.8 - Other symptoms and signs concerning food and fluid intake Status: Acute Brief History Patient is a 61 year old female who presented via [facility] for persistent abdominal pain and vomiting. Onset 10am. Patient had just finished dialysis at this time. Vomiting started first; clear, nonbloody, nonbilious, starting around 10am. Total 7 episodes of vomiting. Abdominal pain started shortly after, characterized by "very" sharp continuous pain. Severity 10/10. Has never had pain like this before. Then diarrhea, dark brown, nonbloody. Total 5 episodes of loose stools, not particularly odorous. Pain has not let up at all today. She tried Pepto Bismol but this did not help. ESRD: on dialysis MWF, no recently missed episodes. Has been on dialysis for couple months. Has port in place in right chest with no pain or swelling. DM: reports low sugars on glipizide, can't take metformin because of ESRD. No reported history of GI disease or workup. CBC/BMP: 07/27/17 0705 07/27/17 0705 Significant Findings Laboratory Tests Test 07/24/17 19:50 07/25/17 06:20 07/25/17 08:00 07/25/17 20:30 White Blood Count 15.7 TH/MM3 (4.0-11.0) 17.2 TH/MM3 (4.0-11.0) Red Blood Count 3.94 MIL/MM3 (4.00-5.30) 3.57 MIL/MM3 (4.00-5.30) Mean Corpuscular Volume 100.6 FL (80.0-100.0) 102.8 FL (80.0-100.0) Neutrophils (%) (Auto) 86.4 % (16.0-70.0) 78.3 % (16.0-70.0) Lymphocytes (%) (Auto) 8.2 % (9.0-44.0) Neutrophils # (Auto) 13.5 TH/MM3 (1.8-7.7) 13.5 TH/MM3 (1.8-7.7) Blood Urea Nitrogen 35 MG/DL (7-18) 39 MG/DL (7-18) Creatinine 3.27 MG/DL (0.50-1.00) 3.94 MG/DL (0.50-1.00) Random Glucose 154 MG/DL (74-106) 144 MG/DL (74-106) Albumin 3.2 GM/DL (3.4-5.0) 2.7 GM/DL (3.4-5.0) Calcium Level 8.2 MG/DL (8.5-10.1) 8.2 MG/DL (8.5-10.1) Sodium Level 134 MEQ/L (136-145) Estimat Glomerular Filtration Rate 14 ML/MIN (>89) 12 ML/MIN (>89) Mean Corpuscular Hemoglobin 34.2 PG (27.0-34.0) Monocytes (%) (Auto) 9.1 % (0.0-8.0) Monocytes # (Auto) 1.6 TH/MM3 (0-0.9) Total Protein 5.7 GM/DL (6.4-8.2) Aspartate Amino Transf (AST/SGOT) 14 U/L (15-37) Carbon Dioxide Level 20.7 MEQ/L (21.0-32.0) Stool C. difficile Toxin (PCR) POSITIVE (NEGATIVE) Urine Protein 100 mg/dL (NEG-TRACE) Test 07/26/17 07:10 07/26/17 07:20 07/27/17 07:05 Blood Urea Nitrogen 52 MG/DL (7-18) 40 MG/DL (7-18) Creatinine 5.04 MG/DL (0.50-1.00) 4.60 MG/DL (0.50-1.00) Total Protein 5.8 GM/DL (6.4-8.2) 5.7 GM/DL (6.4-8.2) Albumin 2.4 GM/DL (3.4-5.0) 2.4 GM/DL (3.4-5.0) Calcium Level 7.9 MG/DL (8.5-10.1) 7.8 MG/DL (8.5-10.1) Aspartate Amino Transf (AST/SGOT) 13 U/L (15-37) 10 U/L (15-37) Estimat Glomerular Filtration Rate 9 ML/MIN (>89) 10 ML/MIN (>89) White Blood Count 14.1 TH/MM3 (4.0-11.0) Red Blood Count 3.17 MIL/MM3 (4.00-5.30) 3.14 MIL/MM3 (4.00-5.30) Hemoglobin 10.8 GM/DL (11.6-15.3) 10.9 GM/DL (11.6-15.3) Hematocrit 32.6 % (35.0-46.0) 31.7 % (35.0-46.0) Mean Corpuscular Volume 102.8 FL (80.0-100.0) 100.9 FL (80.0-100.0) Mean Corpuscular Hemoglobin 34.1 PG (27.0-34.0) 34.8 PG (27.0-34.0) Neutrophils (%) (Auto) 77.0 % (16.0-70.0) 73.0 % (16.0-70.0) Monocytes (%) (Auto) 8.7 % (0.0-8.0) 10.2 % (0.0-8.0) Neutrophils # (Auto) 10.9 TH/MM3 (1.8-7.7) Monocytes # (Auto) 1.2 TH/MM3 (0-0.9) 1.1 TH/MM3 (0-0.9) Random Glucose 187 MG/DL (74-106) Alanine Aminotransferase (ALT/SGPT) 8 U/L (10-53) PE at Discharge GEN: NAD but appears uncomfortable. non toxic HEENT: PERRL, some conjunctival icterus, PEERL EOMI RESP: Coarse breath sounds throughout but no area of decreased aeration or crackles. CV: RRR, faint heart sounds, pulses equal to all extremities, no lower ext edema. GI: Large midline scar just inferior to the umbilicus, slightly distended, no rebound, but voluntary guarding on deep palpation, hyperactive BS. TTP RUQ and RLQ. MSK: 5/5 strength throughout. Hospital Course In summary, Mrs. Alicia is a 61-year-old female, with past medical history significant for type 2 diabetes, end-stage renal disease requiring dialysis 3 times a week, anxiety/depression, essential hypertension, coronary artery disease, who presented with sudden onset fever/chills/abdominal pain/ diarrhea. She was found to be positive for C. difficile, and her CT showed thickening of her cecum, consistent with a colitis. She continued to improve throughout her hospitalization, with oral vancomycin, as well as IV Flagyl. Blood cultures were negative, as were urine cultures. Her sepsis, resolved, and she was tolerating a diet/liquids, and having normal formed bowel movements prior to discharge. She did receive dialysis 1 while hospitalized, and Dr. Corral will follow as an outpatient. He was discharged home with 10 days of oral Flagyl, as well as lactobacillus/2 tabs 3 times a day. She should follow up in our clinic in 2-3 days, to monitor resolution of her symptoms. Pt Condition on Discharge: Stable Discharge Disposition: Discharge Home Discharge Instructions DIET: Follow Instructions for: Heart Healthy Diet Activities you can perform: Regular-No Restrictions New Medications: Hydrocodone-Acetaminophen (Hydrocodone-Acetaminophen) 7.5 Mg-325 Mg Tab 1 TAB PO Q6H PRN for PAIN, #20 TAB 0 Refills Lactobacillus Acidophilus (Lactobacillus Acidophilus) 1 Billion Cell Tab 2 TAB PO TIDAC for Nutritional Supplement, #60 TAB 0 Refills Metronidazole (Metronidazole) 500 Mg Tab 500 MG PO QID for Infection, #40 TAB 0 Refills Continued Medications: Alprazolam (Xanax) 0.5 Mg Tab 0.5 MG PO Q6H PRN for ANXIETY, #60 TAB 0 Refills Aspirin (Aspirin) 81 Mg Chew 81 MG CHEW DAILY, #30 TAB 0 Refills Atorvastatin (Lipitor) 10 Mg Tab 10 MG PO HS, #30 TAB Bumetanide (Bumetanide) 1 Mg Tab 2 MG PO BID@09,18, #60 TAB 7 Refills Calcitriol (Rocaltrol) 0.25 Mcg Cap 0.25 MCG PO DAILY, #60 CAP 5 Refills Carvedilol (Coreg) 12.5 Mg Tab 25 MG PO Q12HR, #120 TAB 4 Refills Cyanocobalamin (Vitamin B-12) 500 Mcg Tab 500 MCG PO DAILY for Nutritional Supplement, #1 BOTTLE 0 Refills Hydralazine HCl (Hydralazine HCl) 25 Mg Tablet 25 MG PO Q8HR, #180 TAB 6 Refills Levothyroxine (Synthroid) 50 Mcg Tab 50 MCG PO DAILY for Thyroid, #30 TAB 4 Refills Magnesium Oxide (Magnesium Oxide) 400 Mg Tab 800 MG PO BID for Nutritional Supplement, #120 TAB 0 Refills Metoclopramide (Metoclopramide) 10 Mg Tab 5 MG PO BIDAC, #60 TAB 3 Refills Multivitamin with Folic Acid (Thera Tablet) 400 Mcg Tablet 1 TAB PO DAILY, #30 Pantoprazole (Pantoprazole) 40 Mg Tab 40 MG PO DAILY, #60 TAB 4 Refills Sennosides-Docusate Sodium (Gnp Senna Plus 8.6-50 mg) 8.6 Mg-50 Mg Tab 1 TAB PO BID, #60 TAB Sodium Chloride (Sodium Chloride) 1 Gram Tab 1 GM PO BID, #10 TAB Temazepam (Restoril) 15 Mg Cap 15 MG PO HS PRN for INSOMNIA, #30 CAP 1 Refill (This prescription has been renewed) Ticagrelor (Brilinta) 90 Mg Tab 90 MG PO BID, #60 TAB 3 Refills Discontinued Medications: Ferrous Sulfate (Ferosul) 325 Mg (65 Mg Iron) Tablet 325 MG PO DAILY, #60 TAB 4 Refills En Borrero MD, R3 Jul 27, 2017 09:45
[2017-07-27] MEDS ORDERED: metroNIDAZOLE 500 MG TAB PO SCH (14:00)
== END 2017-07-27 16:27 | disposition home or self-care (01) | DRG 871 ==
LOC: NEPE 18:35 → NEDA 21:42 → NEPHCDU 23:34
PROVIDERS: ADMIT Family Medicine; ATTEND Family Medicine
PROC: 5A1D70Z Performance of Urinary Filtration, Intermittent, Less than 6 Hours Per Day (ICD-10-PCS; principal; 2017-07-26)
DX: A41.9 Sepsis, unspecified organism (principal); N18.6 End stage renal disease; I13.2 Hypertensive heart and chronic kidney disease with heart failure and with stage 5 chronic kidney disease, or end stage renal disease; A04.72 Enterocolitis due to Clostridium difficile, not specified as recurrent; E88.89 Other specified metabolic disorders; I50.9 Heart failure, unspecified; E11.21 Type 2 diabetes mellitus with diabetic nephropathy; E11.22 Type 2 diabetes mellitus with diabetic chronic kidney disease; Z87.440 Personal history of urinary (tract) infections; Z99.2 Dependence on renal dialysis; I16.0 Hypertensive urgency; I25.10 Atherosclerotic heart disease of native coronary artery without angina pectoris; Z95.5 Presence of coronary angioplasty implant and graft; I25.2 Old myocardial infarction; E03.9 Hypothyroidism, unspecified; F41.9 Anxiety disorder, unspecified; E78.5 Hyperlipidemia, unspecified; D63.1 Anemia in chronic kidney disease; Z87.891 Personal history of nicotine dependence; Z89.421 Acquired absence of other right toe(s)
CPT/HCPCS: 71045; 74176; 80053; 81001; 82948; 83605; 83690; 85025; 87040; 87205; 87328; 87329; 87425; 87493; 87506; 87804; 90935; 96365; 96368; 96374; 96375; G8987-GP; G8988-GP; J0744; J1815; J2270; J2405; J3370; J7030; J7050

== ENCOUNTER 2017-07-30 12:15 | Emergency (ER) | payer MEDICARE, OTHER ==
[~2017-07-30] VITALS: Ht 157.5 cm; Wt 63.0 kg
[~2017-07-30 12:15] MED LIST changes: -BEDSIDE COMMODE1 MI1; -CEPH-459 PO; -COMMODE 3-IN-11 MIS; -FERR325T20 PO; +HYDR-3580 PO; +LACTTAB8 PO; +METR1TAB76 PO; -TRAM50TA PO; -WALKER GLIDE WH1 MI1; -WHEEMIS3
[2017-07-30 12:21] VITALS: BP 170/77; PULSE 79; RESP 18; TEMP 97.8; O2SAT 95
--- NOTE | 2017-07-30 12:43 | PD ---
HPI Chief Complaint: Headache Time Seen by Provider: 12:17 Travel History International Travel<30 days: No Contact w/Intl Traveler<30days: No Traveled to known affect area: No History of Present Illness HPI There is a 61-year-old woman who presents to the emergency department complaining of headache, right arm pain, right arm swelling. Symptoms started about 3 days ago since leaving the hospital. Patient is being treated for C. difficile. She did well initially since being discharged. She continues antibiotics for C. difficile infection. Abdominal pain is mostly abated. She is not prone to headaches. Describes little bit of blurry vision at times, none now. No other numbness tingling or weakness. No other complaints. History Past Medical History Narrative Medical Diabetes High blood pressure Hypothyroid Iron deficiency anemia CAD, NSTEMI (04/2017) CKD, currently getting dialysis MWF Other Physicians/Providers Involved in the Care of Patient: Nephrology - [facility] Menopausal: Yes : 2 Para: 2 Social History Alcohol Use: Yes (OCC) Tobacco Use: No (quit in 05/05) Allergies-Medications (Allergen,Severity, Reaction): Coded Allergies: Sulfa (Sulfonamide Antibiotics) (Unverified Adverse Reaction, Mild, RASH, 06/06/17) sulfamethoxazole (Unverified Adverse Reaction, Mild, Rash, 06/06/17) trimethoprim (Unverified Adverse Reaction, Mild, Rash, 06/06/17) Reported Meds & Prescriptions Reported Meds & Active Scripts Active Hydrocodone-Acetaminophen 5-325 mg Tab 1 Tab PO Q6H PRN Hydrocodone-Acetaminophen 7.5 Mg-325 Mg Tab 1 Tab PO Q6H PRN Lactobacillus Acidophilus 1 Billion Cell Tab 2 Tab PO TIDAC Metronidazole 500 Mg Tab 500 Mg PO QID Restoril (Temazepam) 15 Mg Cap 15 Mg PO HS PRN Xanax (Alprazolam) 0.5 Mg Tab 0.5 Mg PO Q6H PRN Coreg (Carvedilol) 12.5 Mg Tab 25 Mg PO Q12HR Hydralazine HCl 25 Mg Tablet 25 Mg PO Q8HR Pantoprazole (Pantoprazole Sodium) 40 Mg Tab 40 Mg PO DAILY Metoclopramide (Metoclopramide HCl) 10 Mg Tab 5 Mg PO BIDAC Brilinta (Ticagrelor) 90 Mg Tab 90 Mg PO BID Rocaltrol (Calcitriol) 0.25 Mcg Cap 0.25 Mcg PO DAILY Bumetanide 1 Mg Tab 2 Mg PO BID@,18 Sodium Chloride 1 Gram Tab 1 Gm PO BID Aspirin 81 Mg Chew 81 Mg CHEW DAILY Thera Tablet (Multivitamin with Folic Acid) 400 Mcg Tablet 1 Tab PO DAILY Gnp Senna Plus 8.6-50 mg (Sennosides-Docusate Sodium) 8.6 Mg-50 Mg Tab 1 Tab PO BID Lipitor (Atorvastatin Calcium) 10 Mg Tab 10 Mg PO HS Synthroid (Levothyroxine Sodium) 50 Mcg Tab 50 Mcg PO DAILY Vitamin B-12 (Cyanocobalamin) 500 Mcg Tab 500 Mcg PO DAILY Magnesium Oxide 400 Mg Tab 800 Mg PO BID Review of Systems Except as stated in HPI: all other systems reviewed are Neg Physical Exam Narrative GENERAL: Generally well-appearing 61-year-old woman, no acute distress. SKIN: Focused skin assessment warm/dry. HEAD: Atraumatic. Normocephalic. EYES: Pupils equal and round. No scleral icterus. No injection or drainage. ENT: No nasal bleeding or discharge. Mucous membranes pink and moist. NECK: Trachea midline. No JVD. CARDIOVASCULAR: Regular rate and rhythm. No murmur appreciated. RESPIRATORY: No accessory muscle use. Clear to auscultation. Breath sounds equal bilaterally. CHEST: Dialysis catheter in the right chest wall appeared clean dry and intact. GASTROINTESTINAL: Abdomen soft, non-tender, nondistended. Hepatic and splenic margins not palpable. MUSCULOSKELETAL: No obvious deformities. Some swelling and edema in the right arm, mild, tenderness throughout the right arm. NEUROLOGICAL: Awake and alert. No obvious cranial nerve deficits. Motor grossly within normal limits. Normal speech. PSYCHIATRIC: Appropriate mood and affect; insight and judgment normal. Data Data Last Documented VS Vital Signs Date Time Temp Pulse Resp B/P (MAP) Pulse Ox O2 Delivery O2 Flow Rate FiO2 07/30/17 12:21 97.8 79 18 170/77 (108) 95 Orders Orders Us Arm Venous Doppler (07/30/17 ) Ct Brain W/O Iv Contrast(Rout) (07/30/17 ) Complete Blood Count With Diff (07/30/17 12:34) Comprehensive Metabolic Panel (07/30/17 12:34) Act Partial Throm Time (Ptt) (2/11/18 12:34) Prothrombin Time / Inr (Pt) (07/30/17 12:34) Iv Access Insert/Monitor (07/30/17 12:34) Acetaminophen 1000 Mg/100 Ml (Ofirmev 10 (07/30/17 12:45) Metoclopramide Inj (Reglan Inj) (07/30/17 12:45) Ed Discharge Order (07/30/17 16:04) Labs Laboratory Tests Test 07/30/17 12:30 White Blood Count 8.9 TH/MM3 Red Blood Count 3.26 MIL/MM3 Hemoglobin 11.2 GM/DL Hematocrit 33.3 % Mean Corpuscular Volume 102.1 FL Mean Corpuscular Hemoglobin 34.3 PG Mean Corpuscular Hemoglobin Concent 33.6 % Red Cell Distribution Width 13.9 % Platelet Count 224 TH/MM3 Mean Platelet Volume 7.7 FL Neutrophils (%) (Auto) 70.4 % Lymphocytes (%) (Auto) 14.3 % Monocytes (%) (Auto) 13.6 % Eosinophils (%) (Auto) 1.2 % Basophils (%) (Auto) 0.5 % Neutrophils # (Auto) 6.3 TH/MM3 Lymphocytes # (Auto) 1.3 TH/MM3 Monocytes # (Auto) 1.2 TH/MM3 Eosinophils # (Auto) 0.1 TH/MM3 Basophils # (Auto) 0.0 TH/MM3 CBC Comment DIFF FINAL Differential Comment Prothrombin Time 11.5 SEC Prothromb Time International Ratio 1.1 RATIO Activated Partial Thromboplast Time 26.6 SEC Blood Urea Nitrogen 61 MG/DL Creatinine 5.34 MG/DL Random Glucose 213 MG/DL Total Protein 6.0 GM/DL Albumin 2.6 GM/DL Calcium Level 7.8 MG/DL Alkaline Phosphatase 80 U/L Aspartate Amino Transf (AST/SGOT) 18 U/L Alanine Aminotransferase (ALT/SGPT) 18 U/L Total Bilirubin 0.3 MG/DL Sodium Level 139 MEQ/L Potassium Level 4.5 MEQ/L Chloride Level 106 MEQ/L Carbon Dioxide Level 22.2 MEQ/L Anion Gap 11 MEQ/L Estimat Glomerular Filtration Rate 8 ML/MIN [facility] Medical Decision Making Medical Screen Exam Complete: Yes Emergency Medical Condition: Yes Interpretation(s) Head CT: Negative. LABS: CBC remarkable for mild anemia. CMP elevated BUN and creatinine, glucose 213 Coags unremarkable. Right upper extremity ultrasound: Suggestive of thrombus in the right cephalic vein. Differential Diagnosis SVC syndrome, DVT, bleed, headache, other Narrative Course Medical decision making INITIAL: 61-year-old woman presents to the emergency department with headache. She also has right arm pain and swelling. She is a right chest catheter my suspicion is this is related to that. We will get an ultrasound to rule out DVT , CT head to rule out bleed. She is on what looks like Brilinta and aspirin. Physician Communication Physician Communication Discussed findings in detail with Dr. Joel, invasive radiology. Recommend no intervention at this time, close monitoring. Diagnosis Primary Impression: Headache Additional Impression: Cephalic vein thrombosis Patient Instructions: General Instructions Additional Instructions: Continue current medications. Use Lortab sparingly as needed for headache. Follow-up with your primary doctor and [facility] in the next 2-3 days for further evaluation. Return to the emergency department for any new or worsening symptoms. Med/Other Pt SpecificInfo: Prescription(s) given Scripts Hydrocodone-Acetaminophen (Hydrocodone-Acetaminophen) 5-325 mg Tab 1 TAB PO Q6H Y for PAIN, #12 0 Refills Prov: Kirill Mo MD 07/30/17 Disposition: 01 DISCHARGE HOME Condition: Stable Kirill Mo MD Jul 30, 2017 12:43
[2017-07-30] MEDS ORDERED: ACETAMINOPHEN 1000 MG/100 ML 100 ML IV ONE (12:45)
[2017-07-30] MEDS ORDERED: METOCLOPRAMIDE HCL 10 MG/2 ML VIAL IV PUSH ONE (12:45)
[2017-07-30 13:07] LABS: AUTOMATED NEUTROPHIL # 6.3 TH/MM3 (1.8-7.7); BASOPHIL % 0.5 % (0.0-2.0); EOSINOPHIL # 0.1 TH/MM3 (0-0.4); EOSINOPHIL % 1.2 % (0.0-4.0); HEMATOCRIT 33.3 % (35.0-46.0); HEMOGLOBIN 11.2 GM/DL (11.6-15.3); LYMPH % 14.3 % (9.0-44.0); LYMPHOCYTE # 1.3 TH/MM3 (1.0-4.8); MEAN CELL VOLUME 102.1 FL (80.0-100.0); MEAN CORPUSCULAR HEMOGLOBIN 34.3 PG (27.0-34.0); MEAN CORPUSCULAR HGB CONC 33.6 % (32.0-36.0); MEAN PLATELET VOLUME 7.7 FL (7.0-11.0); MONO % 13.6 % (0.0-8.0); MONOCYTE # 1.2 TH/MM3 (0-0.9); NEUT % 70.4 % (16.0-70.0); PLATELET COUNT 224 TH/MM3 (150-450); RED BLOOD COUNT 3.26 MIL/MM3 (4.00-5.30); RED CELL DISTRIBUTION WIDTH 13.9 % (11.6-17.2); WHITE BLOOD COUNT 8.9 TH/MM3 (4.0-11.0)
--- NOTE | 2017-07-30 13:11 | RADRPT ---
EXAM DATE/TIME: 07/30/2017 12:53 [facility] COMPARISON: CT BRAIN W/O CONTRAST, September 09, 2012, 23:48. INDICATIONS : Cephalgia. RADIATION DOSE: 56.35 CTDIvol (mGy) MEDICAL HISTORY : Cerebrovascular disease. Cardiovascular disease Diabetes mellitus type 2. SURGICAL HISTORY : None. ENCOUNTER: Initial ACUITY: 3 days PAIN SCALE: 8/10 LOCATION: cranial TECHNIQUE: Multiple contiguous axial images were obtained of the head. Using automated exposure control and adj ustment of the mA and/or kV according to patient size, radiation dose was kept as low as reasonably a chievable to obtain optimal diagnostic quality images. DICOM format image data is available electro nically for review and comparison. FINDINGS: CEREBRUM: The ventricles are normal for age. No evidence of midline shift, mass lesion, hemorrhage or acute in farction. No extra-axial fluid collections are seen. POSTERIOR FOSSA: The cerebellum and brainstem are intact. The 4th ventricle is midline. The cerebellopontine angle i s unremarkable. EXTRACRANIAL: The visualized portion of the orbits is intact. SKULL: The calvaria is intact. No evidence of skull fracture. CONCLUSION: No acute disease. Terrie Butler MD on July 30, 2017 at 13:08 Board Certified Radiologist. This report was verified electronically.
[2017-07-30 13:15] LABS: INTERNATIONAL NORMALIZED RATIO 1.1 RATIO; PROTHROMBIN TIME - PATIENT 11.5 SEC (9.8-11.6)
[2017-07-30 13:26] LABS: ALBUMIN 2.6 GM/DL (3.4-5.0); ALT (GPT) 18 U/L (10-53); AST (GOT) 18 U/L (15-37); BICARBONATE 22.2 MEQ/L (21.0-32.0); BLOOD UREA NITROGEN 61 MG/DL (7-18); CALCIUM 7.8 MG/DL (8.5-10.1); CHLORIDE 106 MEQ/L (98-107); CREATININE 5.34 MG/DL (0.50-1.00); GLOMERULAR FILTRATION RATE 8 ML/MIN (>89); GLUCOSE,RANDOM 213 MG/DL (74-106); SODIUM (NA) 139 MEQ/L (136-145)
[2017-07-30 13:40] LABS: ALKALINE PHOSPHATASE 80 U/L (45-117); TOTAL BILIRUBIN ADULT 0.3 MG/DL (0.2-1.0)
--- NOTE | 2017-07-30 14:56 | RADRPT ---
EXAM DATE/TIME: 07/30/2017 14:23 [facility] COMPARISON: No previous studies available for comparison. INDICATIONS : Right arm swelling. MEDICAL HISTORY : Hypothyroidism. Myocardial infarction. Congestive heart failure. Peripheral neuropathy. TIA. Hypercho lesterolemia. Hyperlipidemia. HTN. COPD. Diverticulosis. Hemorrhoids. Colitis. Gastric ulcer. Stage 2 -3 chronic kidney disease. Type II Diabetes. Anemia. SURGICAL HISTORY : Coronary artery stent. Appendectomy. section. Cardiac cath. Right middle toe amputation. D&C . ENCOUNTER: Subsequent ACUITY: 2 months PAIN SCORE: 6/10 LOCATION: Right arm. FINDINGS: There is spontaneous flow documented in the brachial, basilic, axillary, and subclavian veins. The v essels are compressible and augmentation response is documented. No filling defects are seen. The f low is phasic with respiration. Direction of flow in the jugular vein is caudal. Findings suggesting nonocclusive thrombus in right cephalic vein CONCLUSION: Findings suggesting thrombus in the right cephalic vein. Montez Russo MD on July 30, 2017 at 14:53 Board Certified Radiologist. This report was verified electronically.
[2017-07-30] MEDS ORDERED: HYDR-3516 PO (15:57)
== END 2017-07-30 16:32 | disposition home or self-care (01) ==
LOC: NEPE 12:15
DX: R51 Headache (principal); I82.611 Acute embolism and thrombosis of superficial veins of right upper extremity; D64.9 Anemia, unspecified; E11.9 Type 2 diabetes mellitus without complications; E03.9 Hypothyroidism, unspecified; I25.10 Atherosclerotic heart disease of native coronary artery without angina pectoris; E11.22 Type 2 diabetes mellitus with diabetic chronic kidney disease; N18.9 Chronic kidney disease, unspecified; Z79.899 Other long term (current) drug therapy
CPT/HCPCS: 70450; 80053; 85025; 85610; 85730; 93971; 96374; 99284; J0131; J2765

== ENCOUNTER 2017-09-10 12:01 | Emergency (ER) | payer OTHER, MEDICARE ==
[~2017-09-10] VITALS: Ht 165.1 cm; Wt 65.0 kg
[~2017-09-10 12:01] MED LIST changes: +HYDR-3516 PO
[2017-09-10 12:09] VITALS: BP 172/85; PULSE 92; RESP 18; TEMP 99; O2SAT 99
[2017-09-10 13:24] VITALS: BP 190/99; PULSE 93; RESP 18; O2SAT 98
[2017-09-10] MEDS ORDERED: ACETAMINOPHEN/HYDROcodone 325 MG/5 MG TAB PO ONE (13:45)
[2017-09-10] MEDS ORDERED: SODIUM CHLORIDE 0.9% FLUSH 10 ML FLUSH IVF PRN (13:45)
[2017-09-10] MEDS ORDERED: DIPHTH/TETANUS/ACEL PERTUSSIS (BOOSTER) 0.5 ML VIAL/PFS IM ONE (13:45)
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
[2017-09-10 16:08] LABS: PROTHROMBIN TIME - PATIENT 10.2 SEC (9.8-11.6)
[2017-09-10 16:13] LABS: BICARBONATE 24.5 MEQ/L (21.0-32.0); CALCIUM 8.4 MG/DL (8.5-10.1); CREATININE 3.02 MG/DL (0.50-1.00)
[2017-09-10] MEDS ORDERED: NORC5TAB PO (16:40)
== END 2017-09-10 17:45 | disposition home or self-care (01) ==
LOC: NEPD 12:01
DX: S22.41XA Multiple fractures of ribs, right side, initial encounter for closed fracture (principal); S62.617A Displaced fracture of proximal phalanx of left little finger, initial encounter for closed fracture; S62.616A Displaced fracture of proximal phalanx of right little finger, initial encounter for closed fracture; V89.2XXA Person injured in unspecified motor-vehicle accident, traffic, initial encounter; I13.0 Hypertensive heart and chronic kidney disease with heart failure and stage 1 through stage 4 chronic kidney disease, or unspecified chronic kidney disease; N18.3 Chronic kidney disease, stage 3 (moderate); I50.9 Heart failure, unspecified; F17.200 Nicotine dependence, unspecified, uncomplicated; Z99.2 Dependence on renal dialysis
CPT/HCPCS: 70450; 71250; 72125; 72128; 72131; 73130; 73564; 74176; 80048; 85610; 85730; 86850; 86900; 86901; 90471; 90715

== ENCOUNTER 2017-10-14 10:50 | Inpatient (IN) | payer MEDICARE, OTHER ==
[2017-10-14] VITALS (9 sets, daily range): BP systolic 91–155; BP diastolic 50–74; PULSE 74–101; RESP 15–18; TEMP 98.1–99.1; O2SAT 96–98
[~2017-10-14] VITALS: Ht 157.5 cm; Wt 60.5 kg
[~2017-10-14 10:50] MED LIST changes: -ALPR.5 PO; -HYDR-3516 PO; -METR1TAB76 PO; +NORC5TAB PO; -PANT40TA3 PO
[2017-10-14] MEDS ORDERED: SODIUM CHLOR 0.9% 1000 ML INJ 1,000 ML IV SCH (11:13)
[2017-10-14] MEDS ORDERED: LIDOCAINE VISCOUS 2% SOLN 15 ML UDC PO ONE (11:15)
[2017-10-14] MEDS ORDERED: ONDANSETRON HCL 4 MG/2 ML VIAL IVP ONE (11:15)
[2017-10-14] MEDS ORDERED: MORPHINE SULFATE 8 MG/ML INJ IV PUSH ONE ×2 (11:15→15:15)
[2017-10-14] MEDS ORDERED: ALUMINUM/MAGNESIUM/SIMETH 30 ML CUP PO ONE (11:15)
[2017-10-14 11:42] LABS: AUTOMATED NEUTROPHIL # 15.6 TH/MM3 (1.8-7.7); BASOPHIL % 0.2 % (0.0-2.0); EOSINOPHIL % 0.1 % (0.0-4.0); HEMOGLOBIN 11.8 GM/DL (11.6-15.3); LYMPH % 6.5 % (9.0-44.0); LYMPHOCYTE # 1.1 TH/MM3 (1.0-4.8); MEAN CELL VOLUME 101.2 FL (80.0-100.0); MEAN CORPUSCULAR HEMOGLOBIN 33.3 PG (27.0-34.0); MEAN CORPUSCULAR HGB CONC 32.9 % (32.0-36.0); MONO % 4.1 % (0.0-8.0); MONOCYTE # 0.7 TH/MM3 (0-0.9); NEUT % 89.1 % (16.0-70.0); PLATELET COUNT 229 TH/MM3 (150-450); RED BLOOD COUNT 3.55 MIL/MM3 (4.00-5.30); RED CELL DISTRIBUTION WIDTH 15.8 % (11.6-17.2); WHITE BLOOD COUNT 17.5 TH/MM3 (4.0-11.0)
[2017-10-14 12:17] LABS: ALBUMIN 2.8 GM/DL (3.4-5.0); ALT (GPT) 13 U/L (10-53); AST (GOT) 12 U/L (15-37); BLOOD UREA NITROGEN 68 MG/DL (7-18); CALCIUM 8.6 MG/DL (8.5-10.1); CHLORIDE 102 MEQ/L (98-107); GLOMERULAR FILTRATION RATE 11 ML/MIN (>89); GLUCOSE,RANDOM 185 MG/DL (74-106); SODIUM (NA) 135 MEQ/L (136-145)
[2017-10-14 12:19] LABS: ALKALINE PHOSPHATASE 91 U/L (45-117); TOTAL BILIRUBIN ADULT 0.5 MG/DL (0.2-1.0); TOTAL PROTEIN 6.6 GM/DL (6.4-8.2)
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
[2017-10-14 13:47] LABS: BACTERIA, URINE MANY /hpf; BILIRUBIN, URINE NEG (NEG); BLOOD, URINE MOD (NEG); GLUCOSE,URINE NEG (NEG); KETONE, URINE TRACE mg/dL (NEG); NITRITE,URINE NEG (NEG); SQUAMOUS EPITHELIAL CELL URINE 11 /hpf (0-5); URINE COLOR YELLOW (YELLW/STRAW); URINE LEUKOCYTE ESTERASE LARGE (NEG)
[2017-10-14 13:54] LABS: WHITE BLOOD CELL CLUMPS MOD
[2017-10-14] MEDS ORDERED: cefTRIAXone INJ 1,000 MG in SODIUM CHLORIDE 0.9% INJ 100 ML IV ONE (14:00)
--- NOTE | 2017-10-14 14:13 | EKG ---
Date Performed: 10/14/2017 Time Performed: 11:07:47 PTAGE: 62 years EKG: Sinus rhythm WITH SHORT OR INTERVAL WITH OCCASIONAL SUPRAVENTRICULAR PREMATURE COMPLEXES NONSPECIFIC ST & T-WAVE ABNORMALITY BORDERLINE ECG Compared to PREVIOUS TRACING , previous concern for ST elevation inferiorly is less prominent DOCTOR: Hemanth Cole Interpretating Date/Time 10/14/2017 14:12:35
--- NOTE | 2017-10-14 14:47 | RADRPT ---
EXAM DATE/TIME: 10/14/2017 13:53 [facility] COMPARISON: CT ABDOMEN & PELVIS W/O CONTRAST, July 24, 2017, 19:53. CT ABDOMEN & PELVIS W/O CONTRAST, September 10, 2017, 14:51. INDICATIONS : Diffuse abdomen pain today. ORAL CONTRAST: No oral contrast ingested. RADIATION DOSE: 8.56 CTDIvol (mGy) MEDICAL HISTORY : Hypertension. Myocardial infarction. Chronic obstructive pulmonary disease. SURGICAL HISTORY : Appendectomy. ENCOUNTER: Initial ACUITY: 1 day PAIN SCALE: 8/10 LOCATION: Bilateral abdomen TECHNIQUE: Volumetric scanning of the abdomen and pelvis was performed. Using automated exposure control and ad justment of the mA and/or kV according to patient size, radiation dose was kept as low as reasonably achievable to obtain optimal diagnostic quality images. DICOM format image data is available electro nically for review and comparison. FINDINGS: LOWER LUNGS: The visualized lower lungs are clear. LIVER: Homogeneous density without lesion. There is no dilation of the biliary tree. There is increased den sity within the gallbladder possibly representing stones. SPLEEN: Normal size without lesion. PANCREAS: Within normal limits. KIDNEYS: Normal in size and shape. There is no hydronephrosis. There are tiny calcifications in the central a spect of the kidneys likely related to tiny nonobstructing renal stones. There is a 1.3 cm hypodensit y seen in the posterior left mid kidney likely related to a cyst although it is nonspecific on this n oncontrasted examination. ADRENAL GLANDS: Within normal limits. VASCULAR: There is no aortic aneurysm. BOWEL/MESENTERY: There appears to be thickening and surrounding induration seen at the ascending colon. There are pro minent numerous diverticula seen in the distal transverse, descending, and sigmoid portions of the co esther without surrounding inflammatory change. ABDOMINAL WALL: Within normal limits. RETROPERITONEUM: There is no lymphadenopathy. BLADDER: There is air seen throughout the urinary bladder marsh. REPRODUCTIVE: Within normal limits. INGUINAL: There is a persistent 3.8 x 2.0 x 2.8 cm fluid collection in the right inguinal region. This was pres ent previously. This could be a hematoma or seroma from prior intervention. MUSCULOSKELETAL: There are old right rib fractures. There is degenerative change in the lumbar spine. CONCLUSION: 1. Inflammatory changes around the ascending colon concerning for colitis. 2. Air seen throughout the bladder marsh. Emphysematous cystitis needs to be suspected. This is more commonly seen in diabetics. 3. Colonic diverticula. 4. Nonobstructing tiny renal stones. 5. Possible gallstones. Keegan Savage MD on October 14, 2017 at 14:37 Board Certified Radiologist. This report was verified electronically.
[2017-10-14] MEDS ORDERED: VANCOMYCIN INJ 1,000 MG in SODIUM CHLOR 0.9% 250 ML INJ 250 ML IV ONE (15:15)
[2017-10-14] MEDS ORDERED: PIPERACIL-TAZO 2.25 GM PREMIX 50 ML IV ONE (15:15)
--- NOTE | 2017-10-14 16:21 | HHI.HP ---
[facility] Service Family Medicine Primary Care Physician Red Mott MD Admission Diagnosis Diagnoses: International Travel<30 Days: No Contact w/Intl Traveler<30days: No Known Affected Area: No History of Present Illness Mrs. Alicia is a 62-year-old female presenting to the ED with a chief complaint of abdominal pain with nausea and vomiting. She states that since night after eating [place] food, she has had 8/9 out of 10 right upper quadrant abdominal pain accompanied by nausea. She describes the pain as sharp exacerbated with movement that is alleviated by rest and Percocet she has been taking at home. Since that time she has had continuous nausea with 2 episodes of vomiting without blood. Her last normal bowel movement was morning , since then she has been constipated with 2 episodes of fully liquid diarrhea without blood. She was last able to eat on and has only been able to drink liquids and eat Jell-O since that time. Currently she states that she is hungry and is requesting a full diet. Of note, patient has end-stage renal disease and is managed by nephrology. She currently undergoes Monday, Monday, Monday dialysis treatments. She states that she is able to urinate approximately 3-4 times per day, however over this timeframe she is only urinating 1-2 times. She notes that the urine is darker in color but does not have a foul smell. She denies any hematuria. She does endorse back/flank pain at this time. Review of Systems Constitutional: COMPLAINS OF: Fever (subjective), Weight loss, DENIES: Weight gain, Chills Endocrine: DENIES: Polydipsia, Polyuria Eyes: DENIES: Blurred vision, Double Vision Ears, nose, mouth, throat: DENIES: Throat pain, Running Nose Respiratory: DENIES: Cough, Shortness of breath Cardiovascular: DENIES: Chest pain, Syncope, Dyspnea on Exertion Gastrointestinal: COMPLAINS OF: Abdominal pain, Constipation, Nausea, Vomiting , DENIES: Black stools, Bloody stools, Diarrhea Genitourinary: COMPLAINS OF: Dysuria, DENIES: Hematuria Musculoskeletal: COMPLAINS OF: Joint pain, Back pain Integumentary: DENIES: Rash Hematologic/lymphatic: DENIES: Lymphadenopathy Immunologic/allergic: DENIES: Urticaria Neurologic: DENIES: Headache Psychiatric: DENIES: Mood changes Past Family Social History Past Medical History Diabetes High blood pressure Hypothyroid Iron deficiency anemia NSTEMI (04/2017) Abdominal hematoma (was followed by vascular, but recently discharged) CKD, currently getting dialysis [facility] Other Physicians/Providers Involved in the Care of Patient: Nephrology - [facility] Cardiology- [facility] Past Surgical History Toe amputation Appendix Right thumb operation unknown Allergies: Coded Allergies: Sulfa (Sulfonamide Antibiotics) (Unverified Adverse Reaction, Mild, RASH, 09/10/17) sulfamethoxazole (Unverified Adverse Reaction, Mild, Rash, 09/10/17) trimethoprim (Unverified Adverse Reaction, Mild, Rash, 09/10/17) Family History Father: 1983, murder Mother: , high blood pressure, CK-MB Siblings: 3 sisters alive and well Children: One son 43 alive and well. One daughter 41 alive and well. Social History Marital Status: ; patient's has stage IV lung cancer. Education: Graduated high school Tobacco: Greater than [id number] history (started one pack per day from age 14 through 2014). Has cut back in the last 2 years to one half pack per day. Alcohol: Wine Socially Illicit drug use: none Physical Exam Vital Signs Vital Signs Date Time Temp Pulse Resp B/P (MAP) Pulse Ox O2 Delivery O2 Flow Rate FiO2 10/14/17 15:45 97 18 91/50 (64) 96 Room Air 10/14/17 15:15 88 18 155/71 (99) Room Air 10/14/17 13:13 80 18 124/67 (86) 97 Room Air 10/14/17 12:10 96 Room Air 10/14/17 11:00 74 18 128/60 (82) 96 Room Air 10/14/17 10:58 99.1 97 16 97 Physical Exam GENERAL: Well-nourished, well-developed female lying in bed in no acute distress. SKIN: Warm and dry. No rash. HEENT: Atraumatic, normocephalic with extraocular motions intact. No rhinorrhea. Oropharynx clear without erythema or exudate. No palpable thyroid abnormality, LAD, or JVD. CARDIOVASCULAR: Regular rate and rhythm without obvious murmurs, gallops, or rubs. 2+ pulses in all four extremities. RESPIRATORY: Clear to auscultation bilaterally with no crackles, wheezes, or rhonchi. No increased work of breathing. GASTROINTESTINAL: Abdomen soft, nondistended with positive bowel sounds. Patient tender to palpation throughout the abdomen, focally at the right upper quadrant. Negative Daniel sign. Negative fluid wave. Negative rebound tenderness. No masses appreciated. Negative suprapubic tenderness. MUSCULOSKELETAL: No cyanosis or edema. No calf tenderness. CVA tenderness BL (R> L). NEURO/PSYCH: Afocal. Awake, alert, and oriented x3. Normal speech and judgement. Laboratory Laboratory Tests Test 10/14/17 11:18 10/14/17 12:39 White Blood Count 17.5 Red Blood Count 3.55 Hemoglobin 11.8 Hematocrit 36.0 Mean Corpuscular Volume 101.2 Mean Corpuscular Hemoglobin 33.3 Mean Corpuscular Hemoglobin Concent 32.9 Red Cell Distribution Width 15.8 Platelet Count 229 Mean Platelet Volume 8.0 Neutrophils (%) (Auto) 89.1 Lymphocytes (%) (Auto) 6.5 Monocytes (%) (Auto) 4.1 Eosinophils (%) (Auto) 0.1 Basophils (%) (Auto) 0.2 Neutrophils # (Auto) 15.6 Lymphocytes # (Auto) 1.1 Monocytes # (Auto) 0.7 Eosinophils # (Auto) 0.0 Basophils # (Auto) 0.0 CBC Comment DIFF FINAL Differential Comment Blood Urea Nitrogen 68 Creatinine 4.20 Random Glucose 185 Total Protein 6.6 Albumin 2.8 Calcium Level 8.6 Alkaline Phosphatase 91 Aspartate Amino Transf (AST/SGOT) 12 Alanine Aminotransferase (ALT/SGPT) 13 Total Bilirubin 0.5 Sodium Level 135 Potassium Level 5.1 Chloride Level 102 Carbon Dioxide Level 22.0 Anion Gap 11 Estimat Glomerular Filtration Rate 11 Lipase 78 Urine Color YELLOW Urine Turbidity CLOUDY Urine pH 6.0 Urine Specific [place] 1.017 Urine Protein 300 Urine Glucose (UA) NEG Urine Ketones TRACE Urine Occult Blood MOD Urine Nitrite NEG Urine Bilirubin NEG Urine Urobilinogen LESS THAN 2.0 Urine Leukocyte Esterase LARGE Urine RBC 62 Urine WBC Urine WBC Clumps MOD Urine Squamous Epithelial Cells 11 Urine Bacteria MANY Microscopic Urinalysis Comment CULTURE INDICATED Date/Time Source Procedure Growth Status 10/14/17 12:39 Urine Clean Catch Urine Culture Pending Received Result Diagram: 10/14/17 1118 10/14/17 1118 Imaging Last 72 hours Impressions Abdomen/Pelvis CT 10/14/17 1342 Signed Impressions: Service Date/Time: Saturday, October 14, 2017 13:53 - CONCLUSION: 1. Inflammatory changes around the ascending colon concerning for colitis. 2. Air seen throughout the bladder marsh. Emphysematous cystitis needs to be suspected. This is more commonly seen in diabetics. 3. Colonic diverticula. 4. Nonobstructing tiny renal stones. 5. Possible gallstones. MD Neto Perez VTE Risk Assessment Caprini VTE Risk Assessment: Mod/High Risk (score >= 2) Caprini Risk Assessment Model Point Value = 1 Point Value = 2 Point Value = 3 Point Value = 5 Age 41-60 Minor surgery BMI > 25 kg/m2 Swollen legs Varicose veins or History of unexplained or recurrent spontaneous Oral contraceptives or hormone replacement Sepsis (< 1 month) Serious lung disease, including pneumonia (< 1 month) Abnormal pulmonary function Acute myocardial infarction Congestive heart failure (< 1 month) History of inflammatory bowel disease Medical patient at bed rest Age 61-74 Arthroscopic surgery Major open surgery (> 45 min) Laparoscopic surgery (> 45 min) Malignancy Confined to bed (> 72 hours) Immobilizing plaster cast Central venous access Age >= 75 History of VTE Family history of VTE Factor V Leiden Prothrombin [id number] Lupus anticoagulant Anticardiolipin antibodies Elevated serum homocysteine Heparin-induced thrombocytopenia Other congenital or acquired thrombophilia Stroke (< 1 month) Elective arthroplasty Hip, pelvis, or leg fracture Acute spinal cord injury (< 1 month) Prophylaxis Regimen Total Risk Factor Score Risk Level Prophylaxis Regimen 0-1 Low Early ambulation 2 Moderate Order ONE of the following: *Sequential Compression Device (SCD) *Heparin 5000 units SQ BID 3-4 Higher Order ONE of the following medications: *Heparin 5000 units SQ TID *Enoxaparin/Lovenox 40 mg SQ daily (WT < 150 kg, CrCl > 30 mL/min) *Enoxaparin/Lovenox 30 mg SQ daily (WT < 150 kg, CrCl > 10-29 mL/min) *Enoxaparin/Lovenox 30 mg SQ BID (WT < 150 kg, CrCl > 30 mL/min) AND/OR *Sequential Compression Device (SCD) 5 or more Highest Order ONE of the following medications: *Heparin 5000 units SQ TID (Preferred with Epidurals) *Enoxaparin/Lovenox 40 mg SQ daily (WT < 150 kg, CrCl > 30 mL/min) *Enoxaparin/Lovenox 30 mg SQ daily (WT < 150 kg, CrCl > 10-29 mL/min) *Enoxaparin/Lovenox 30 mg SQ BID (WT < 150 kg, CrCl > 30 mL/min) AND *Sequential Compression Device (SCD) Assessment and Plan Assessment and Plan Mrs. Alicia is a 62 y/o F presenting with abdominal pain and nausea with vomiting and diarrhea found to have colitis. Code Status FULL CODE Discussed Condition With Dr. Cole, ED Problem List: (1) Sepsis ICD Codes: A41.9 - Sepsis, unspecified organism Status: Acute Plan: -Patient presenting under sepsis criteria with tachycardia and leukocytosis with suspected sources of infection being pyelonephritis vs. colitis -WBC 17.5 with 89.1% neutrophils, 6.5 lymphocytes -Urinalysis: Cloudy, 300 protein, trace ketones, occult blood, large leukocyte esterase, 62 RBC, moderate white blood cell clumps, many bacteria -Urine culture pending -Continue vancomycin and Zosyn for broad-spectrum antibiotic coverage -Blood cultures drawn after administration of first dose of vancomycin and Zosyn -Lactic acid pending (2) Pyelonephritis ICD Codes: N12 - Tubulo-interstitial nephritis, not specified as acute or chronic Status: Acute Plan: -Patient presenting with subjective fevers CVA tenderness with urinalysis concerning for pyelonephritis -CT: Inflammatory changes around the ascending colon concerning for colitis, and air seen throughout the bladder marsh, emphysematous cystitis suspected, colonic diverticula, nonobstructing tiny renal stones, possible gallstones -UA: Cloudy, 300 protein, trace ketones, moderate occult blood, large leukocyte esterase, 62 RBC, moderate white blood cell clumps, many bacteria -Urine culture pending -Sepsis protocol as above -Continue vancomycin and Zosyn for antibiotic coverage -Plan to de-escalate antibiotics with negative cultures and clinical improvement (3) Colitis ICD Codes: K52.9 - Noninfective gastroenteritis and colitis, unspecified Status: Acute Plan: -CT: Inflammatory changes around the ascending colon concerning for colitis, and air seen throughout the bladder marsh, emphysematous cystitis suspected, colonic diverticula, nonobstructing tiny renal stones, possible gallstones -Sepsis protocol as above -Hemoccult, enteric pathogens, stool WBC, stool ova and parasites, and C. difficile toxin ordered -Patient was scheduled Tylenol and Dilaudid due to renal disease as needed for pain control -Continue on vancomycin and Zosyn for broad antibiotic coverage -Plan to de-escalate antibiotics with negative cultures and clinical improvement (4) CKD (chronic kidney disease) stage 5, GFR less than 15 ml/min ICD Codes: N18.5 - Chronic kidney disease, stage 5 Status: Chronic Plan: -Patient with end-stage renal disease currently on Monday, Monday, Monday hemodialysis -Consult nephrology, patient known to Dr. Corral -Cautious IV fluids as patient appears to be mildly dehydrated and currently meeting sepsis criteria -Continue multivitamin, calcitriol, B12, sodium chloride, and magnesium (5) CAD (coronary artery disease) ICD Codes: I25.10 - Atherosclerotic heart disease of [place] coronary artery without angina pectoris Status: Chronic Plan: -Stable, asymptomatic. -Continue ASA, statin, Brilinta. (6) DM2 (diabetes mellitus, type 2) ICD Codes: E11.9 - Type 2 diabetes mellitus without complications Status: Chronic Plan: -Per chart review, patient currently not on any home medications per review -Low-dose sliding scale per protocol (7) HTN (hypertension) ICD Codes: I10 - HTN (hypertension) Status: Chronic Plan: -Continue home medications hydralazine, carvedilol, bumetanide (8) COPD (chronic obstructive pulmonary disease) ICD Codes: J44.9 - Chronic obstructive pulmonary disease, unspecified Status: Chronic Plan: -Albuterol as needed for shortness of breath/wheezing -Incentive spirometry (9) Hypothyroidism ICD Codes: E03.9 - Hypothyroidism, unspecified Status: Chronic Plan: -Continue levothyroxine 50 mcg daily (10) Nutrition, metabolism, and development symptoms ICD Codes: R63.8 - Other symptoms and signs concerning food and fluid intake Status: Acute Plan: -Fluids: NS @ 60ml/hr -Electrolytes: Monitor and replete as needed -Nutrition: Discussed with patient starting clear liquid diet initially, however she adamantly refused. Risks were explained given her colitis with nausea, vomiting, and diarrhea with -starting a regular diet, however patient requesting full diet. Carb constant diet ordered with sodium and fluid restriction -Prophylaxis: Restoril as needed for insomnia, clonidine as needed for blood pressure greater than 180/110, albuterol as needed for shortness of breath/ wheezing, lactobacillus for GI health, constipation protocol, famotidine as needed for reflux (11) DVT Prophylaxis Status: Acute Plan: -SCDs, early ambulation -Plan for heparin with prolonged hospitalization and negative FOBT Physician Certification 2 Midnight Certification Type: Admission for Inpatient Services Order for Inpatient Services The services are ordered in accordance with Medicare regulations or non- Medicare payer requirements, as applicable. In the case of services not specified as inpatient-only, they are appropriately provided as inpatient services in accordance with the 2-midnight benchmark. Estimated LOS (days): 3 3 days is the estimated time the patient will need to remain in the hospital, assuming treatment plan goals are met and no additional complications. Post-Hospital Plan: Home Problem Qualifiers (1) Sepsis: Qualified Codes: A41.9 - Sepsis, unspecified organism (2) CAD (coronary artery disease): (3) DM2 (diabetes mellitus, type 2): Qualified Codes: E11.22 - Type 2 diabetes mellitus with diabetic chronic kidney disease; N18.6 - End stage renal disease; Z99.2 - Dependence on renal dialysis (4) HTN (hypertension): Qualified Codes: I10 - Essential (primary) hypertension (5) COPD (chronic obstructive pulmonary disease): Qualified Codes: J44.9 - Chronic obstructive pulmonary disease, unspecified Nate Bass MD R2 Oct 14, 2017 16:21
[2017-10-14] MEDS ORDERED: MAGNESIUM HYDROXIDE SUSP 30 ML CUP PO PRN (16:45)
[2017-10-14] MEDS ORDERED: SODIUM CHLORIDE 0.9% FLUSH 10 ML FLUSH IV FLUSH PRN (16:45)
[2017-10-14] MEDS ORDERED: ONDANSETRON HCL 4 MG/2 ML VIAL IVP PRN (16:45)
[2017-10-14] MEDS ORDERED: GLUCAGON 1 MG/ML VIAL OTHER PRN ×2 (16:45)
[2017-10-14] MEDS ORDERED: LACTULOSE SYRUP 20 GM/30 ML CUP PO PRN (16:45)
[2017-10-14] MEDS ORDERED: DEXTROSE 50% IN WATER 50 ML VIAL(D50) IV PUSH PRN (16:45)
[2017-10-14] MEDS ORDERED: SENNOSIDES 8.6 MG TAB PO PRN (16:45)
[2017-10-14] MEDS ORDERED: BISACODYL 10 MG SUPP RECTAL PRN (16:45)
[2017-10-14] MEDS ORDERED: NALOXONE HCL 0.4 MG/ML AMP IV PUSH PRN ×2 (16:45→23:45)
[2017-10-14] MEDS: INSULIN ASPART SUPPLEMENTAL SCALE SQ SCH ×2 (17:00→19:54)
[2017-10-14] MEDS ORDERED: PILL SPLITTER OTHER PRN (17:00)
[2017-10-14] MEDS: ASPIRIN 81 MG CHEW TAB CHEW SCH (18:00)
[2017-10-14] MEDS: CYANOCOBALAMIN 1,000 MCG TAB PO SCH (18:00)
[2017-10-14] MEDS: BUMETANIDE 1 MG TAB PO SCH (18:01)
[2017-10-14] MEDS: CALCITRIOL 0.25 MCG CAP PO SCH (18:02)
[2017-10-14] MEDS: SODIUM CHLOR 0.9% 1000 ML INJ 1,000 ML IV SCH (18:02)
[2017-10-14] MEDS: LACTOBACILLUS ACIDOPHILUS TAB PO SCH (18:02)
[2017-10-14] MEDS: METOCLOPRAMIDE HCL 10 MG TAB PO SCH (18:02)
[2017-10-14] MEDS: hydrALAZINE HCL 25 MG TAB PO SCH ×2 (18:03→22:14)
[2017-10-14] MEDS: MULTIVITAMIN TAB PO SCH (18:03)
[2017-10-14] MEDS ORDERED: [UNRECOGNIZED DRUG - OTHER] IV SCH (19:15)
[2017-10-14] MEDS ORDERED: VANCOMYCIN INJ 1,000 MG in SODIUM CHLOR 0.9% 250 ML INJ 250 ML IV SCH (19:15)
[2017-10-14] MEDS ORDERED: Vancomycin Consult Pharmacy 1 EA OTHER SCH (19:15)
[2017-10-14] MEDS ORDERED: PIPERACILLIN IV SCH (19:15)
[2017-10-14] MEDS ORDERED: TAZOBACTAM IV SCH (19:15)
[2017-10-14] MEDS ORDERED: PHARMACY ORDERED LAB ONE (19:30)
[2017-10-14] MEDS: ATORVASTATIN 10 MG TAB PO SCH (19:55)
[2017-10-14] MEDS: SODIUM CHLORIDE 1 GRAM TAB PO SCH (19:55)
[2017-10-14] MEDS: MAGNESIUM OXIDE 400 MG TAB PO SCH (19:56)
[2017-10-14] MEDS: DOCUSATE SODIUM 50 MG/SENNA 8.6 MG TAB PO SCH (19:56)
[2017-10-14] MEDS: CARVEDILOL 12.5 MG TAB PO SCH (19:57)
[2017-10-14] MEDS: SODIUM CHLORIDE 0.9% FLUSH 10 ML FLUSH IV FLUSH SCH (19:57)
[2017-10-14] MEDS: TICAGRELOR 90 MG TAB PO SCH (22:14)
[2017-10-14] MEDS: TEMAZEPAM 15 MG CAP PO PRN (22:14)
[2017-10-14] MEDS ORDERED: HYDROmorphone HCL 2 MG TAB PO PRN (23:45)
[2017-10-14] MEDS ORDERED: ACETAMINOPHEN 325 MG TAB PO SCH (23:45)
[2017-10-15] VITALS: BP 147/65; PULSE 100; PULSE 101; RESP 15; TEMP 98.4; O2SAT 97
[2017-10-15] MEDS: HYDROmorphone HCL 2 MG TAB PO PRN ×2 (01:30→07:10)
[2017-10-15] MEDS: PIPERACIL-TAZO 2.25 GM PREMIX 50 ML IV SCH ×2 (03:27→14:46)
[2017-10-15 04:00] VITALS: BP 129/73; PULSE 92; PULSE 98; RESP 15; TEMP 98.6; O2SAT 94
[2017-10-15 04:44] LABS: AUTOMATED NEUTROPHIL # 13.8 TH/MM3 (1.8-7.7); BASOPHIL % 0.1 % (0.0-2.0); EOSINOPHIL # 0.1 TH/MM3 (0-0.4); EOSINOPHIL % 0.8 % (0.0-4.0); HEMATOCRIT 30.5 % (35.0-46.0); HEMOGLOBIN 10.1 GM/DL (11.6-15.3); LYMPH % 8.1 % (9.0-44.0); LYMPHOCYTE # 1.3 TH/MM3 (1.0-4.8); MEAN CELL VOLUME 101.2 FL (80.0-100.0); MEAN CORPUSCULAR HEMOGLOBIN 33.6 PG (27.0-34.0); MEAN CORPUSCULAR HGB CONC 33.2 % (32.0-36.0); MEAN PLATELET VOLUME 8.1 FL (7.0-11.0); MONO % 4.9 % (0.0-8.0); MONOCYTE # 0.8 TH/MM3 (0-0.9); NEUT % 86.1 % (16.0-70.0); PLATELET COUNT 193 TH/MM3 (150-450); RED BLOOD COUNT 3.01 MIL/MM3 (4.00-5.30); RED CELL DISTRIBUTION WIDTH 15.5 % (11.6-17.2)
[2017-10-15] MEDS ORDERED: cloNIDine HCL 0.1 MG TAB PO PRN ×2 (04:45→15:45)
[2017-10-15] MEDS ORDERED: RESP: ALBUTEROL 2.5 MG/3 ML NEB (PRN) NEB (04:45)
[2017-10-15] MEDS ORDERED: FAMOTIDINE 20 MG TAB PO PRN (04:45)
[2017-10-15 05:07] LABS: ALBUMIN 2.2 GM/DL (3.4-5.0); ALKALINE PHOSPHATASE 71 U/L (45-117); ALT (GPT) 6 U/L (10-53); AST (GOT) 6 U/L (15-37); BICARBONATE 21.8 MEQ/L (21.0-32.0); BLOOD UREA NITROGEN 65 MG/DL (7-18); CALCIUM 7.6 MG/DL (8.5-10.1); CHLORIDE 104 MEQ/L (98-107); CREATININE 4.14 MG/DL (0.50-1.00); GLOMERULAR FILTRATION RATE 11 ML/MIN (>89); GLUCOSE,RANDOM 104 MG/DL (74-106); RANDOM VANCOMYCIN 15.9 COMMENT; SODIUM (NA) 136 MEQ/L (136-145); TOTAL BILIRUBIN ADULT 0.3 MG/DL (0.2-1.0); TOTAL PROTEIN 5.6 GM/DL (6.4-8.2)
[2017-10-15] MEDS: LEVOTHYROXINE SODIUM 50 MCG TAB PO SCH (05:38)
[2017-10-15] MEDS: hydrALAZINE HCL 25 MG TAB PO SCH ×3 (05:38→22:06)
[2017-10-15 08:00] VITALS: BP 118/58; PULSE 78; PULSE 80; RESP 17; TEMP 98.6; O2SAT 96
[2017-10-15] MEDS ORDERED: PHARMACY ORDERED LAB ONE (08:00)
[2017-10-15] MEDS: INSULIN ASPART SUPPLEMENTAL SCALE SQ SCH ×4 (08:00→19:52)
[2017-10-15] MEDS: SODIUM CHLORIDE 0.9% FLUSH 10 ML FLUSH IV FLUSH SCH ×2 (09:00→19:57)
[2017-10-15] MEDS: DOCUSATE SODIUM 50 MG/SENNA 8.6 MG TAB PO SCH ×2 (09:00→19:55)
[2017-10-15] MEDS: ASPIRIN 81 MG CHEW TAB CHEW SCH (09:12)
[2017-10-15] MEDS: CARVEDILOL 12.5 MG TAB PO SCH ×2 (09:12→19:57)
[2017-10-15] MEDS: SODIUM CHLORIDE 1 GRAM TAB PO SCH ×2 (09:12→19:55)
[2017-10-15] MEDS: LACTOBACILLUS ACIDOPHILUS TAB PO SCH ×3 (09:17→18:14)
[2017-10-15] MEDS: MULTIVITAMIN TAB PO SCH (09:17)
[2017-10-15] MEDS: CYANOCOBALAMIN 1,000 MCG TAB PO SCH (09:17)
[2017-10-15] MEDS: TICAGRELOR 90 MG TAB PO SCH ×2 (09:17→19:57)
[2017-10-15] MEDS: CALCITRIOL 0.25 MCG CAP PO SCH (09:18)
[2017-10-15] MEDS: MAGNESIUM OXIDE 400 MG TAB PO SCH ×2 (09:18→19:56)
[2017-10-15] MEDS: METOCLOPRAMIDE HCL 10 MG TAB PO SCH ×2 (09:18→15:55)
[2017-10-15] MEDS: BUMETANIDE 1 MG TAB PO SCH ×2 (09:19→18:13)
--- NOTE | 2017-10-15 10:39 | HHI.FPPN ---
Subjective Remarks No acute events overnight. Patient continues to complain of right-sided abdominal pain that is slightly worse than on admission. Currently denies nausea or vomiting. Also denies fevers, chills, dysuria. (Ziggy Anthony MD R1) Objective Vitals Vital Signs Date Time Temp Pulse Resp B/P (MAP) Pulse Ox O2 Delivery O2 Flow Rate FiO2 10/15/17 08:10 18 10/15/17 04:00 98 10/15/17 04:00 98.6 92 15 129/73 (91) 94 10/15/17 00:00 100 10/15/17 00:00 98.4 101 15 147/65 (92) 97 10/14/17 20:11 98 21 10/14/17 20:00 98.1 99 15 124/74 (91) 98 10/14/17 19:59 101 10/14/17 18:00 98.2 85 16 151/68 (95) 98 10/14/17 16:56 10/14/17 15:45 97 18 91/50 (64) 96 Room Air 10/14/17 15:15 88 18 155/71 (99) Room Air 10/14/17 13:13 80 18 124/67 (86) 97 Room Air 10/14/17 12:10 96 Room Air 10/14/17 11:00 74 18 128/60 (82) 96 Room Air 10/14/17 10:58 99.1 97 16 97 I/O 10/14/17 10/14/17 10/14/17 10/15/17 10/15/17 10/15/17 07:00 15:00 23:00 07:00 15:00 23:00 Intake Total 530 ml Output Total 300 ml Balance 230 ml Intake Oral 480 ml IV Total 50 ml Output Urine Total 300 ml # Bowel Movements 0 (Ziggy Anthony MD R1) Result Diagram: 10/15/1740910/15/17409 Objective Remarks GENERAL: Well-nourished, well-developed female lying in bed in no acute distress. SKIN: Warm and dry. No rash. HEENT: Atraumatic, normocephalic with extraocular motions intact. No rhinorrhea. No palpable thyroid abnormality, LAD, or JVD. CARDIOVASCULAR: Regular rate and rhythm without obvious murmurs, gallops, or rubs. 2+ pulses in all four extremities. RESPIRATORY: Clear to auscultation bilaterally with no crackles, wheezes, or rhonchi. No increased work of breathing. GASTROINTESTINAL: Abdomen soft, nondistended with positive bowel sounds. Tender to palpation in both the right upper and lower quadrants. Abdomen is more firm on the right side. Negative Daniel sign. Negative fluid wave. Negative rebound tenderness. No masses appreciated. Negative suprapubic tenderness. MUSCULOSKELETAL: No cyanosis or edema. No calf tenderness. CVA tenderness BL (L> R). NEURO/PSYCH: Afocal. Awake, alert, and oriented x3. Normal speech and judgement. (Ziggy Anthony MD R1) A/P Assessment and Plan Mrs. Alicia is a 62 y/o F with PMH of DM, HTN, NSTEMI, CKD requiring dialysis MWF, hypothyroidism presenting with abdominal pain and nausea with vomiting and diarrhea found to have colitis and UTI. CT abdomen on admission significant for inflammatory changes in the ascending colon, air seen throughout bladder marsh with emphysematous cystitis suspected. Started on vancomycin, Zosyn on admission. Nephrology consulted. Discharge Planning Will likely need several more days of antibiotics to treat colitis/ pyelonephritis (Ziggy Anthony MD R1) Attending Attestation Pt is a 62 yo female patient of Dr. Erik Mott on dialysis X3/week for ESRD who presented with nausea, vomiting and abdominal pain. ED doctor told her she could go home today; she is upset. She would like more pain meds as her abdominal pain is 9:10 and she wants to be able to ambulate to . See H&P for this admission for additional past, family and social history as well as ROS at the time of admission. She is irritable but does calm down. Agrees to stay for IV antibiotics and pain medications. My exam agrees with the resident's exam as noted above. I agree with the plan as documented. (Naomi Mott MD) Problem List: (1) Sepsis ICD Codes: A41.9 - Sepsis, unspecified organism Status: Acute Plan: -Patient presenting under sepsis criteria with tachycardia and leukocytosis with suspected sources of infection being pyelonephritis vs. colitis -On admission: WBC 17.5 with 89.1% neutrophils, 6.5 lymphocytes Urinalysis: Cloudy, 300 protein, trace ketones, occult blood, large leukocyte esterase, 62 RBC, moderate white blood cell clumps, many bacteria -Urine culture pending -Continue vancomycin and Zosyn for broad-spectrum antibiotic coverage -Blood cultures drawn after administration of first dose of vancomycin and Zosyn -Lactic acid normal at 2.0 -WBC mildly improved on 10/15 at 16.0 (2) Pyelonephritis ICD Codes: N12 - Tubulo-interstitial nephritis, not specified as acute or chronic Status: Acute Plan: -Patient presenting with subjective fevers CVA tenderness with urinalysis concerning for pyelonephritis -CT: Inflammatory changes around the ascending colon concerning for colitis, and air seen throughout the bladder marsh, emphysematous cystitis suspected, colonic diverticula, nonobstructing tiny renal stones, possible gallstones -UA: Cloudy, 300 protein, trace ketones, moderate occult blood, large leukocyte esterase, 62 RBC, moderate white blood cell clumps, many bacteria -Urine culture pending -Sepsis protocol as above -Continue vancomycin and Zosyn for antibiotic coverage -Plan to de-escalate antibiotics with negative cultures and clinical improvement (3) Colitis ICD Codes: K52.9 - Noninfective gastroenteritis and colitis, unspecified Status: Acute Plan: -CT: Inflammatory changes around the ascending colon concerning for colitis, and air seen throughout the bladder marsh, emphysematous cystitis suspected, colonic diverticula, nonobstructing tiny renal stones, possible gallstones -Sepsis protocol as above -Hemoccult, enteric pathogens, stool WBC, stool ova and parasites, and C. difficile toxin pending -Patient was scheduled Tylenol and Dilaudid due to renal disease as needed for pain control -Continue on vancomycin and Zosyn for broad antibiotic coverage -Plan to de-escalate antibiotics with negative cultures and clinical improvement (4) CKD (chronic kidney disease) stage 5, GFR less than 15 ml/min ICD Codes: N18.5 - Chronic kidney disease, stage 5 Status: Chronic Plan: -Patient with end-stage renal disease currently on Monday, Monday, Monday hemodialysis -Consult nephrology, patient known to Dr. Corral -Cautious IV fluids as patient appears to be mildly dehydrated and currently meeting sepsis criteria. Currently on 60mL/hr -Continue multivitamin, calcitriol, B12, sodium chloride, and magnesium (5) CAD (coronary artery disease) ICD Codes: I25.10 - Atherosclerotic heart disease of [place] coronary artery without angina pectoris Status: Chronic Plan: -Stable, asymptomatic. -Continue ASA, statin, Brilinta. (6) DM2 (diabetes mellitus, type 2) ICD Codes: E11.9 - Type 2 diabetes mellitus without complications Status: Chronic Plan: -Per chart review, patient currently not on any home medications per review -Low-dose sliding scale per protocol (7) HTN (hypertension) ICD Codes: I10 - HTN (hypertension) Status: Chronic Plan: -Continue home medications hydralazine, carvedilol, bumetanide (8) COPD (chronic obstructive pulmonary disease) ICD Codes: J44.9 - Chronic obstructive pulmonary disease, unspecified Status: Chronic Plan: -Albuterol as needed for shortness of breath/wheezing -Incentive spirometry (9) Hypothyroidism ICD Codes: E03.9 - Hypothyroidism, unspecified Status: Chronic Plan: -Continue levothyroxine 50 mcg daily (10) Nutrition, metabolism, and development symptoms ICD Codes: R63.8 - Other symptoms and signs concerning food and fluid intake Status: Acute Plan: -Fluids: NS @ 60ml/hr -Electrolytes: Monitor and replete as needed -Nutrition: Discussed with patient starting clear liquid diet initially, however she adamantly refused. Risks were explained given her colitis with nausea, vomiting, and diarrhea with -starting a regular diet, however patient requesting full diet. Carb constant diet ordered with sodium and fluid restriction -Prophylaxis: Restoril as needed for insomnia, clonidine as needed for blood pressure greater than 180/110, albuterol as needed for shortness of breath/ wheezing, lactobacillus for GI health, constipation protocol, famotidine as needed for reflux (11) DVT Prophylaxis Status: Acute Plan: -SCDs, early ambulation -Plan for heparin with prolonged hospitalization and negative FOBT (Ziggy Anthony MD R1) Problem Qualifiers (1) Sepsis: Qualified Codes: A41.9 - Sepsis, unspecified organism (2) CAD (coronary artery disease): (3) DM2 (diabetes mellitus, type 2): Qualified Codes: E11.22 - Type 2 diabetes mellitus with diabetic chronic kidney disease; N18.6 - End stage renal disease; Z99.2 - Dependence on renal dialysis (4) HTN (hypertension): Qualified Codes: I10 - Essential (primary) hypertension (5) COPD (chronic obstructive pulmonary disease): Qualified Codes: J44.9 - Chronic obstructive pulmonary disease, unspecified Ziggy Anthony MD R1 Oct 15, 2017 10:39 Naomi Mott MD Oct 15, 2017 12:50
[2017-10-15] MEDS: SODIUM CHLOR 0.9% 1000 ML INJ 1,000 ML IV SCH (11:25)
[2017-10-15] MEDS ORDERED: HYDROmorphone HCL 2 MG TAB PO PRN (11:45)
[2017-10-15 12:00] VITALS: BP 129/69; PULSE 84; RESP 18; TEMP 97.7; O2SAT 96
[2017-10-15] MEDS: ACETAMINOPHEN 1000 MG/100 ML 100 ML IV SCH ×2 (14:56→19:57)
[2017-10-15] MEDS ORDERED: HYDROmorphone HCL PF 1 MG/ML VIAL IV PUSH PRN (15:15)
[2017-10-15] MEDS ORDERED: MORPHINE SULFATE 2 MG/ML SYRINGE IV PUSH PRN ×2 (15:15)
[2017-10-15] MEDS ORDERED: SODIUM CHLOR 0.9% 1000 ML INJ 1,000 ML IV PRN (15:33)
[2017-10-15] MEDS ORDERED: SODIUM CHLOR 0.9% 1000 ML INJ 1,000 ML OTHER PRN ×2 (15:33)
[2017-10-15] MEDS ORDERED: MANNITOL 12.5 GM/50 ML VIAL IV PRN (15:45)
[2017-10-15] MEDS ORDERED: ALBUMIN 25% INJ 100 ML IV PRN (15:45)
[2017-10-15] MEDS ORDERED: diphenhydrAMINE HCL 25 MG CAP PO PRN (15:45)
[2017-10-15] MEDS ORDERED: SODIUM CHLORIDE 0.9% FLUSH 10 ML FLUSH IV FLUSH PRN (15:45)
[2017-10-15] MEDS ORDERED: NITROGLYCERIN 0.4 MG SL 25 TABS/BTL SL PRN (15:45)
[2017-10-15] MEDS ORDERED: HEPARIN SODIUM - IV 10,000 UNITS/10 ML VIAL IV FLUSH PRN (15:45)
[2017-10-15] MEDS ORDERED: HEPARIN SODIUM - IV 10,000 UNITS/10 ML VIAL PRN (15:45)
[2017-10-15] MEDS ORDERED: ACETAMINOPHEN 325 MG TAB PO PRN (15:45)
[2017-10-15] MEDS ORDERED: ONDANSETRON HCL 4 MG/2 ML VIAL IV PUSH PRN (15:45)
[2017-10-15] MEDS ORDERED: GELATIN 12 MM/7 MM FOAM TOP PRN (15:45)
[2017-10-15] MEDS: HYDROmorphone HCL PF 0.5 MG/0.5 ML SYRINGE IV PUSH PRN ×3 (15:55→22:04)
[2017-10-15 16:00] VITALS: BP 108/55; PULSE 78; RESP 18; TEMP 101.3; O2SAT 93
[2017-10-15] MEDS: metroNIDAZOLE 500 MG INJ 100 ML IV SCH (18:13)
[2017-10-15] MEDS: VANCOMYCIN 500 MG VIAL (FOR ORAL USE ONLY) PO SCH ×2 (18:14→19:54)
[2017-10-15 18:42] LABS: BASOPHIL % 0.3 % (0.0-2.0); EOSINOPHIL # 0.2 TH/MM3 (0-0.4); HEMATOCRIT 32.4 % (35.0-46.0); HEMOGLOBIN 10.6 GM/DL (11.6-15.3); LYMPH % 5.4 % (9.0-44.0); LYMPHOCYTE # 0.9 TH/MM3 (1.0-4.8); MEAN CELL VOLUME 100.8 FL (80.0-100.0); MEAN CORPUSCULAR HEMOGLOBIN 33.1 PG (27.0-34.0); MEAN CORPUSCULAR HGB CONC 32.8 % (32.0-36.0); MEAN PLATELET VOLUME 8.7 FL (7.0-11.0); MONO % 5.3 % (0.0-8.0); MONOCYTE # 0.9 TH/MM3 (0-0.9); PLATELET COUNT 195 TH/MM3 (150-450); RED BLOOD COUNT 3.22 MIL/MM3 (4.00-5.30); RED CELL DISTRIBUTION WIDTH 15.7 % (11.6-17.2); WHITE BLOOD COUNT 15.9 TH/MM3 (4.0-11.0)
[2017-10-15 18:58] LABS: CALCIUM 7.8 MG/DL (8.5-10.1); CREATININE 4.42 MG/DL (0.50-1.00)
[2017-10-15] MEDS: ATORVASTATIN 10 MG TAB PO SCH (19:56)
[2017-10-15 20:00] VITALS: BP 117/56; PULSE 78; RESP 16; TEMP 99.5; O2SAT 98
[2017-10-16] VITALS (7 sets, daily range): BP systolic 98–116; BP diastolic 52–69; PULSE 72–113; RESP 16–18; TEMP 97.3–98; O2SAT 93–99
[2017-10-16] MEDS: PIPERACIL-TAZO 2.25 GM PREMIX 50 ML IV SCH ×2 (01:53→15:00)
[2017-10-16] MEDS: ACETAMINOPHEN 1000 MG/100 ML 100 ML IV SCH ×3 (01:53→08:24)
[2017-10-16] MEDS: metroNIDAZOLE 500 MG INJ 100 ML IV SCH ×3 (01:53→17:48)
[2017-10-16] MEDS: hydrALAZINE HCL 25 MG TAB PO SCH ×3 (05:36→20:47)
[2017-10-16] MEDS: LEVOTHYROXINE SODIUM 50 MCG TAB PO SCH (05:36)
[2017-10-16] MEDS: METOCLOPRAMIDE HCL 10 MG TAB PO SCH ×2 (07:00→15:07)
[2017-10-16] MEDS: LACTOBACILLUS ACIDOPHILUS TAB PO SCH ×3 (07:59→16:20)
[2017-10-16 08:00] LABS: AUTOMATED NEUTROPHIL # 17.3 TH/MM3 (1.8-7.7); BASOPHIL % 0.2 % (0.0-2.0); EOSINOPHIL % 0.2 % (0.0-4.0); HEMATOCRIT 29.4 % (35.0-46.0); HEMOGLOBIN 9.4 GM/DL (11.6-15.3); LYMPH % 4.8 % (9.0-44.0); LYMPHOCYTE # 0.9 TH/MM3 (1.0-4.8); MEAN CELL VOLUME 102.7 FL (80.0-100.0); MEAN CORPUSCULAR HEMOGLOBIN 32.9 PG (27.0-34.0); MEAN CORPUSCULAR HGB CONC 32.1 % (32.0-36.0); MEAN PLATELET VOLUME 8.4 FL (7.0-11.0); MONO % 5.4 % (0.0-8.0); NEUT % 89.4 % (16.0-70.0); PLATELET COUNT 174 TH/MM3 (150-450); RED BLOOD COUNT 2.86 MIL/MM3 (4.00-5.30); RED CELL DISTRIBUTION WIDTH 15.8 % (11.6-17.2); WHITE BLOOD COUNT 19.3 TH/MM3 (4.0-11.0)
[2017-10-16] MEDS: CARVEDILOL 12.5 MG TAB PO SCH ×2 (08:00→20:47)
[2017-10-16] MEDS: ASPIRIN 81 MG CHEW TAB CHEW SCH (08:00)
[2017-10-16] MEDS: DOCUSATE SODIUM 50 MG/SENNA 8.6 MG TAB PO SCH ×2 (08:00→20:47)
[2017-10-16] MEDS: SODIUM CHLORIDE 0.9% FLUSH 10 ML FLUSH IV FLUSH SCH ×2 (08:00→20:47)
[2017-10-16] MEDS: INSULIN ASPART SUPPLEMENTAL SCALE SQ SCH ×4 (08:00→20:57)
[2017-10-16] MEDS: TICAGRELOR 90 MG TAB PO SCH ×2 (08:00→20:47)
[2017-10-16] MEDS: CALCITRIOL 0.25 MCG CAP PO SCH (08:00)
[2017-10-16] MEDS: BUMETANIDE 1 MG TAB PO SCH ×2 (08:00→17:48)
[2017-10-16] MEDS: MAGNESIUM OXIDE 400 MG TAB PO SCH ×2 (08:00→20:47)
[2017-10-16] MEDS: MULTIVITAMIN TAB PO SCH (08:01)
[2017-10-16] MEDS: SODIUM CHLORIDE 1 GRAM TAB PO SCH ×2 (08:01→20:46)
[2017-10-16] MEDS: CYANOCOBALAMIN 1,000 MCG TAB PO SCH (08:01)
[2017-10-16] MEDS: VANCOMYCIN 500 MG VIAL (FOR ORAL USE ONLY) PO SCH ×4 (08:01→20:48)
[2017-10-16 08:18] LABS: BICARBONATE 20.5 MEQ/L (21.0-32.0); CALCIUM 7.9 MG/DL (8.5-10.1); CREATININE 4.79 MG/DL (0.50-1.00)
--- NOTE | 2017-10-16 08:21 | MB ---
cc: Ge Stinson MD DATE: 10/15/2017 REASON FOR CONSULTATION: End-stage renal disease management. HISTORY OF PRESENT ILLNESS: This is a 62-year-old female with history of end-stage renal disease, on hemodialysis Mondays, Wednesdays and Fridays. The patient follows up as an outpatient with Dr. Corral. She apparently had her last hemodialysis treatment on Monday. On Monday, she started to feel ill after eating some English food. She apparently had some stomach pain, some abdominal cramping and weakness, and did not go for dialysis. The patient came for admission last night with ongoing abdominal pains and nausea. She had been able to tolerate some liquids, however, otherwise, minimal p.o. intake. The patient was seen here and imaging revealed findings of colitis, with possible emphysematous cystitis as well and the patient was empirically started on antibiotics with vancomycin as well as Zosyn. Cultures are pending at this point, however, she did have findings of apparent C. difficile in the stool. She is being followed up with the primary team here. She reports she has some ongoing urine output with 1-2 times of urine output per day. Otherwise, she is resting in bed at this time with some ongoing abdominal pains. REVIEW OF SYSTEMS: The patient reports subjective fevers and chills at home with ongoing nausea, as well as vomiting and decreased p.o. intake. The patient denies any chest pains or shortness of breath. No dizziness or loss of consciousness otherwise. The patient reports having some ongoing cramping abdominal pain, which is ongoing today. Otherwise, review of systems is negative. PAST MEDICAL HISTORY: Includes diabetes, hypertension, hypothyroidism, iron deficiency anemia, non-ST elevation DE, abdominal hematoma, ESRD on hemodialysis Mondays, Wednesdays, Fridays, followed up with Dr. Olivo. PAST SURGICAL HISTORY: Includes toe amputation, appendicitis, and right thumb operation. ALLERGIES: INCLUDE SULFA AND TRIMETHOPRIM. FAMILY HISTORY: Father in 1983, was murdered. Mother with hypertension. Siblings, 3 sisters alive and well. Children, both healthy. SOCIAL HISTORY: The patient is and lives at home. History of tobacco use with a [id number] history. The patient smokes 1/2 pack per day. Social alcohol use. PHYSICAL EXAMINATION: GENERAL: At the time of evaluation, blood pressure 129/69, pulse oximetry 96, temperature 97.7. GENERAL: Awake, alert, oriented, in no apparent distress. NECK: Soft, supple. No lymphadenopathy. CARDIAC: Regular rate and rhythm. No murmurs, rubs or gallops. PULMONARY: Lungs are clear to auscultation bilaterally. ABDOMEN: Soft, nontender, nondistended. EXTREMITIES: No edema. LABORATORY FINDINGS: White count 16, hemoglobin 10.1, hematocrit 30.5, with platelet count of 193. Sodium 136, potassium 4.5, chloride 104, bicarbonate 21.8, BUN 65, creatinine 4.1, glucose of 104. Urinalysis with 300 protein, 62 RBCs, moderate white blood cell clumps. Culture is pending. The patient with C. difficile PCR positive. Blood cultures are negative x 1 day. Urine culture with Gram-negative rods. ASSESSMENT AND PLAN: 1. End-stage renal disease. The patient is on hemodialysis Mondays, Wednesdays and Fridays. She had missed her last treatment on Monday. At this point, the patient's volume status and electrolytes are stable. The patient does report having some ongoing urine output. We will plan for hemodialysis tomorrow. The patient has a right IJ catheter in place and she is planned for outpatient vein mapping and eventual access planning. 2. Colitis. The patient with apparent findings of Clostridium difficile colitis. The patient also had a recent intake of English food, which may have caused some of her initial abdominal pain symptoms. At this point, continue to monitor with primary care team. Follow cultures and antibiotics as needed. 3. Urinary tract infection with apparent cystitis. Continue with antibiotics, Gram-negative rods and initial urine cultures. Continue to monitor at this point. The patient is on vancomycin and Zosyn. Caution with vancomycin. Follow doses and vancomycin levels as well as narrow antibiotics based on speciation of cultures. 4. Diabetes. Continue to monitor glucose. Glucose is stable. 5. Hypertension. Blood pressure is stable. Continue to monitor. MD THALIA Tejeda/CROW , 03:58 PM , 05:10 PM [facility]
--- NOTE | 2017-10-16 09:25 | HHI.NPPN ---
Subjective General Problems: Anemia Renal Failure: Chronic, End Stage Renal Disease Interval History Seen during dialysis. States she still has generalized abdominal pain, low appetite. No diarrhea. (Cris Telles) Review of Systems Gastrointestinal Gastrointestinal: Abdominal Pain, Nausea & Vomiting GI Remarks change in appetite (Cris Telles) Objective Data Data Vital Signs Date Time Temp Pulse Resp B/P (MAP) Pulse Ox O2 Delivery O2 Flow Rate FiO2 10/16/17 08:00 97.9 72 18 113/62 (79) 96 10/16/17 00:00 97.3 84 16 115/63 (80) 99 10/15/17 20:00 99.5 78 16 117/56 (76) 98 10/15/17 19:11 18 10/15/17 16:00 101.3 78 18 108/55 (72) 93 10/15/17 12:21 18 10/15/17 12:00 97.7 84 18 129/69 (89) 96 (Cris Telles) -: 10/16/17 0618 10/16/17 0618 Imaging Last 72 hours Impressions Abdomen/Pelvis CT 10/14/17 1342 Signed Impressions: Service Date/Time: Saturday, October 14, 2017 13:53 - CONCLUSION: 1. Inflammatory changes around the ascending colon concerning for colitis. 2. Air seen throughout the bladder marsh. Emphysematous cystitis needs to be suspected. This is more commonly seen in diabetics. 3. Colonic diverticula. 4. Nonobstructing tiny renal stones. 5. Possible gallstones. Keegan Savage MD (Cris Telles) Physical Exam General Appearance: Well Developed, No Acute Distress, Comfortable (Cris Telles) Throat Throat Exam: Oral Mucosa Sedillo & Moist (Cris Telles) Pulmonary Resp Exam: Clear Bilaterally, Breath Sounds Equal (Cris Telles) Cardiology CV Exam: Regular, Normal Sinus Rhythm, Good Perfusion (Cris Telles) Gastrointestinal/Abdomen GI Exam: Soft, Non-Tender, Bowel Sounds Present (Cris Telles) Musculoskeletal MS Exam: Joints Intact, Normal Tone, Good Strength (Cris Telles) Integumentary Skin Exam: Clear, Warm, Dry, Intact (Cris Telles) Extremeties Extremities Exam: No Edema, Pedal Pulses Palpable (Cris Telles) Neurologic Neuro Exam: Alert, Awake, Oriented, Speech Clear, Moving All Extremities (Cris Telles) Psychiatric Psych Exam: Appropriate Responses (Cris Telles) Assessment/Plan Discussed Condition With: Patient Assessment Summary: Anemia of CKD Problem List: (1) ESRD (end stage renal disease) on dialysis ICD Codes: N18.6 - End stage renal disease; Z99.2 - Dependence on renal dialysis Plan: Seen during dialysis today on a 3K, 350 BFR, goal 1.5L She still makes some urine, on Bumex PO Intermittently monitor electrolyte profile, replace as needed Avoid IVF administration Has UTI, on Zosyn Permcath for HD use, has appointment for outpatient vein mapping and AVF placement Epogen ordered to be given during dialysis (2) DM2 (diabetes mellitus, type 2) ICD Codes: E11.9 - Type 2 diabetes mellitus without complications Status: Chronic Plan: Insulin as needed, maintain glucose 140-180 mg/dL. (3) HTN (hypertension) ICD Codes: I10 - HTN (hypertension) Status: Chronic Plan: continue medications as ordered (4) C. difficile colitis ICD Codes: A04.72 - Enterocolitis due to Clostridium difficile, not specified as recurrent Plan: On PO Vanc and IV flagyl (5) Abdominal pain ICD Codes: R10.9 - Unspecified abdominal pain Plan: Continued pain, imaging shows colitis, possible gall stones Diet as tolerated (Cris Telles) Plan patient was seen and examined. Seen during dialysis. Needs AVF placement. Has been diagnosed with UTI and C.diff. Urine culture grew Klebsiella, pansensitive. Recommend to narrow the spectrum and to stop antibiotic in 3-5 days. (Fantasma Corral MD) Problem Qualifiers (1) DM2 (diabetes mellitus, type 2): Qualified Codes: E11.22 - Type 2 diabetes mellitus with diabetic chronic kidney disease; N18.6 - End stage renal disease; Z99.2 - Dependence on renal dialysis (2) HTN (hypertension): Qualified Codes: I10 - Essential (primary) hypertension Cris Telles Oct 16, 2017 09:25 Fantasma Corral MD Oct 16, 2017 11:00
[2017-10-16] MEDS: EPOETIN ALFA 10,000 UNITS/ML VIAL IV SCH ×2 (09:30→10:58)
[2017-10-16] MEDS: GENTAMICIN SULFATE 20 MG/2 ML VIAL OTHER PRN (10:57)
[2017-10-16] MEDS ORDERED: HYDROmorphone HCL PF 1 MG/ML VIAL IV PUSH PRN (11:00)
[2017-10-16] MEDS ORDERED: HYDROmorphone HCL 2 MG TAB PO PRN (11:00)
--- NOTE | 2017-10-16 11:40 | HHI.FPPN ---
Subjective Remarks Overall, patient is doing better this morning. Her pain is better controlled with Dilaudid and she is asking for this medication instead of morphine. She does continue to have abdominal tenderness. Denies fever, chills, nausea, vomiting, chest pain, shortness of breath. (Red Mott MD R3) Objective Vitals Vital Signs Date Time Temp Pulse Resp B/P (MAP) Pulse Ox O2 Delivery O2 Flow Rate FiO2 10/16/17 08:00 97.9 72 18 113/62 (79) 96 10/16/17 07:58 96 21 10/16/17 00:00 97.3 84 16 115/63 (80) 99 10/15/17 20:00 99.5 78 16 117/56 (76) 98 10/15/17 19:11 18 10/15/17 16:00 101.3 78 18 108/55 (72) 93 10/15/17 12:21 18 10/15/17 12:00 97.7 84 18 129/69 (89) 96 I/O 10/15/17 10/15/17 10/15/17 10/16/17 10/16/17 10/16/17 07:00 15:00 23:00 07:00 15:00 23:00 Intake Total 530 ml 300 ml 1240 ml 490 ml 0 ml Output Total 300 ml 900 ml 300 ml 1500 ml Balance 230 ml 300 ml 340 ml 190 ml -1500 ml Intake Oral 480 ml 300 ml 720 ml 240 ml IV Total 50 ml 520 ml 250 ml 0 ml Output Urine Total 300 ml 900 ml 300 ml Hemodialysis 1500 ml # Voids 1 # Bowel Movements 0 1 2 0 (Red Mott MD R3) Result Diagram: 10/16/1718 10/16/1718 Objective Remarks GENERAL: Well-nourished, well-developed female lying in bed in no acute distress. SKIN: Warm and dry. No rash. HEENT: Atraumatic, normocephalic with extraocular motions intact. No rhinorrhea. No palpable thyroid abnormality, LAD, or JVD. CARDIOVASCULAR: Regular rate and rhythm without obvious murmurs, gallops, or rubs. 2+ pulses in all four extremities. RESPIRATORY: Clear to auscultation bilaterally with no crackles, wheezes, or rhonchi. No increased work of breathing. GASTROINTESTINAL: Abdomen soft, nondistended with positive bowel sounds. Tender to palpation in both the right upper and lower quadrants. Abdomen is more firm on the right side. Negative Daniel sign. Negative fluid wave. Negative rebound tenderness. No masses appreciated. Negative suprapubic tenderness. MUSCULOSKELETAL: No cyanosis or edema. No calf tenderness. CVA tenderness BL (L> R). NEURO/PSYCH: Afocal. Awake, alert, and oriented x3. Normal speech and judgement. (Red Mott MD R3) A/P Assessment and Plan Mrs. Alicia is a 62 y/o F with PMH of DM, HTN, NSTEMI, CKD requiring dialysis MWF, hypothyroidism presenting with abdominal pain and nausea with vomiting and diarrhea found to have colitis and UTI. CT abdomen on admission significant for inflammatory changes in the ascending colon, air seen throughout bladder marsh with emphysematous cystitis suspected. Treatment as below. Discharge Planning Will likely need several more days of antibiotics to treat colitis/ pyelonephritis (Red Mott MD R3) Attending Attestation Patient was seen and examined with the resident team while in dialysis this morning. She still is having some loose stools and some abdominal pain but somewhat improved. She understands now that she needs to stay in the hospital to get better symptom management. I agree with the physical findings and the plan as documented. (Naomi Mott MD) Problem List: (1) Sepsis ICD Codes: A41.9 - Sepsis, unspecified organism Status: Acute Plan: Blood culture negative 2 days. Urine culture growing Klebsiella, pansensitive Antibiotics: Continue Rocephin 1 g every 24, Zosyn renally dosed every 12 hours. Treatment for Clostridium difficile as below. (2) Pyelonephritis ICD Codes: N12 - Tubulo-interstitial nephritis, not specified as acute or chronic Status: Acute Plan: -CT: Inflammatory changes around the ascending colon concerning for colitis, and air seen throughout the bladder marsh, emphysematous cystitis suspected, colonic diverticula, nonobstructing tiny renal stones, possible gallstones -UA: Cloudy, 300 protein, trace ketones, moderate occult blood, large leukocyte esterase, 62 RBC, moderate white blood cell clumps, many bacteria -Urine culture Klebsiella -Treatment of sepsis as above (3) C. difficile colitis ICD Codes: A04.72 - Enterocolitis due to Clostridium difficile, not specified as recurrent Status: Acute Plan: -CT: Inflammatory changes around the ascending colon concerning for colitis, and air seen throughout the bladder marsh, emphysematous cystitis suspected, colonic diverticula, nonobstructing tiny renal stones, possible gallstones -Sepsis protocol as above Clostridium difficile positive. -Continue antibiotics as above for sepsis -Continue by mouth vancomycin 125 mg 4 times daily and Flagyl 500 mg IV every 8 (4) CKD (chronic kidney disease) stage 5, GFR less than 15 ml/min ICD Codes: N18.5 - Chronic kidney disease, stage 5 Status: Chronic Plan: -Patient with end-stage renal disease currently on Monday, Monday, Monday hemodialysis -Consult nephrology, patient known to Dr. Corral -Cautious IV fluids as patient appears to be mildly dehydrated and currently meeting sepsis criteria. Currently on 60mL/hr -Continue multivitamin, calcitriol, B12, sodium chloride, and magnesium (5) CAD (coronary artery disease) ICD Codes: I25.10 - Atherosclerotic heart disease of [place] coronary artery without angina pectoris Status: Chronic Plan: -Stable, asymptomatic. -Continue ASA, statin, Brilinta. (6) DM2 (diabetes mellitus, type 2) ICD Codes: E11.9 - Type 2 diabetes mellitus without complications Status: Chronic Plan: -Per chart review, patient currently not on any home medications per review -Low-dose sliding scale per protocol (7) HTN (hypertension) ICD Codes: I10 - HTN (hypertension) Status: Chronic Plan: -Continue home medications hydralazine, carvedilol, bumetanide (8) COPD (chronic obstructive pulmonary disease) ICD Codes: J44.9 - Chronic obstructive pulmonary disease, unspecified Status: Chronic Plan: -Albuterol as needed for shortness of breath/wheezing -Incentive spirometry (9) Hypothyroidism ICD Codes: E03.9 - Hypothyroidism, unspecified Status: Chronic Plan: -Continue levothyroxine 50 mcg daily (10) Nutrition, metabolism, and development symptoms ICD Codes: R63.8 - Other symptoms and signs concerning food and fluid intake Status: Acute Plan: -Fluids: Careful with IV fluids given ESRD -Electrolytes: Monitor and replete as needed -Nutrition: Discussed with patient starting clear liquid diet initially, however she adamantly refused. Risks were explained given her colitis with nausea, vomiting, and diarrhea with -starting a regular diet, however patient requesting full diet. Carb constant diet ordered with sodium and fluid restriction -Prophylaxis: Restoril as needed for insomnia, clonidine as needed for blood pressure greater than 180/110, albuterol as needed for shortness of breath/ wheezing, lactobacillus for GI health, constipation protocol, famotidine as needed for reflux (11) DVT Prophylaxis Status: Acute Plan: -SCDs, early ambulation -Plan for heparin with prolonged hospitalization and negative FOBT (Red Mott MD R3) Problem Qualifiers (1) Sepsis: Qualified Codes: A41.9 - Sepsis, unspecified organism (2) CAD (coronary artery disease): (3) DM2 (diabetes mellitus, type 2): Qualified Codes: E11.22 - Type 2 diabetes mellitus with diabetic chronic kidney disease; N18.6 - End stage renal disease; Z99.2 - Dependence on renal dialysis (4) HTN (hypertension): Qualified Codes: I10 - Essential (primary) hypertension (5) COPD (chronic obstructive pulmonary disease): Qualified Codes: J44.9 - Chronic obstructive pulmonary disease, unspecified Red Mott MD R3 Oct 16, 2017 11:40 Naomi Mott MD Oct 16, 2017 12:17
[2017-10-16] MEDS ORDERED: cefTRIAXone INJ 1,000 MG in SODIUM CHLORIDE 0.9% INJ 100 ML IV SCH (12:00)
[2017-10-16] MEDS: HYDROmorphone HCL PF 0.5 MG/0.5 ML SYRINGE IV PUSH PRN (14:12)
[2017-10-16] MEDS ORDERED: VANCOMYCIN 1,000 MG/NS 250 ML IV ONE ×2 (15:00)
[2017-10-16] MEDS: ATORVASTATIN 10 MG TAB PO SCH (20:46)
[2017-10-16] MEDS: HYDROmorphone HCL PF 2 MG/ML VIAL IV PUSH PRN (20:56)
[2017-10-16] MEDS: TEMAZEPAM 15 MG CAP PO PRN (23:54)
[2017-10-17] VITALS (7 sets, daily range): BP systolic 109–192; BP diastolic 56–77; PULSE 73–79; RESP 16–18; TEMP 97.5–98.3; O2SAT 91–97
[2017-10-17] MEDS: HYDROmorphone HCL PF 0.5 MG/0.5 ML SYRINGE IV PUSH PRN
[2017-10-17] MEDS: PIPERACIL-TAZO 2.25 GM PREMIX 50 ML IV SCH ×2 (01:53→15:00)
[2017-10-17] MEDS: metroNIDAZOLE 500 MG INJ 100 ML IV SCH ×3 (01:53→15:26)
[2017-10-17 05:18] LABS: AUTOMATED NEUTROPHIL # 12.8 TH/MM3 (1.8-7.7); BASOPHIL % 0.3 % (0.0-2.0); EOSINOPHIL # 0.1 TH/MM3 (0-0.4); EOSINOPHIL % 0.9 % (0.0-4.0); HEMATOCRIT 31.6 % (35.0-46.0); HEMOGLOBIN 10.3 GM/DL (11.6-15.3); LYMPH % 8.3 % (9.0-44.0); LYMPHOCYTE # 1.3 TH/MM3 (1.0-4.8); MEAN CELL VOLUME 100.4 FL (80.0-100.0); MEAN CORPUSCULAR HEMOGLOBIN 32.7 PG (27.0-34.0); MEAN CORPUSCULAR HGB CONC 32.6 % (32.0-36.0); MEAN PLATELET VOLUME 8.4 FL (7.0-11.0); MONO % 6.8 % (0.0-8.0); NEUT % 83.7 % (16.0-70.0); PLATELET COUNT 252 TH/MM3 (150-450); RED BLOOD COUNT 3.15 MIL/MM3 (4.00-5.30); RED CELL DISTRIBUTION WIDTH 15.7 % (11.6-17.2); WHITE BLOOD COUNT 15.2 TH/MM3 (4.0-11.0)
[2017-10-17] MEDS: METOCLOPRAMIDE HCL 10 MG TAB PO SCH ×2 (05:53→15:33)
[2017-10-17] MEDS: HYDROmorphone HCL PF 2 MG/ML VIAL IV PUSH PRN ×3 (05:54→20:24)
[2017-10-17 05:55] LABS: ALBUMIN 2.2 GM/DL (3.4-5.0); ALKALINE PHOSPHATASE 79 U/L (45-117); ALT (GPT) 7 U/L (10-53); AST (GOT) 9 U/L (15-37); BICARBONATE 27.7 MEQ/L (21.0-32.0); BLOOD UREA NITROGEN 36 MG/DL (7-18); CALCIUM 8.3 MG/DL (8.5-10.1); CHLORIDE 101 MEQ/L (98-107); CREATININE 3.74 MG/DL (0.50-1.00); GLOMERULAR FILTRATION RATE 12 ML/MIN (>89); GLUCOSE,RANDOM 123 MG/DL (74-106); SODIUM (NA) 140 MEQ/L (136-145); TOTAL BILIRUBIN ADULT 0.3 MG/DL (0.2-1.0); TOTAL PROTEIN 6.1 GM/DL (6.4-8.2)
[2017-10-17] MEDS: hydrALAZINE HCL 25 MG TAB PO SCH ×3 (05:55→20:22)
[2017-10-17] MEDS: LEVOTHYROXINE SODIUM 50 MCG TAB PO SCH (05:55)
[2017-10-17] MEDS: INSULIN ASPART SUPPLEMENTAL SCALE SQ SCH ×4 (07:44→20:34)
[2017-10-17] MEDS: DOCUSATE SODIUM 50 MG/SENNA 8.6 MG TAB PO SCH ×2 (07:45→20:24)
[2017-10-17] MEDS: MAGNESIUM OXIDE 400 MG TAB PO SCH ×2 (07:46→20:20)
[2017-10-17] MEDS: BUMETANIDE 1 MG TAB PO SCH ×2 (07:46→18:00)
[2017-10-17] MEDS: VANCOMYCIN 500 MG VIAL (FOR ORAL USE ONLY) PO SCH ×4 (07:46→20:26)
[2017-10-17] MEDS: MULTIVITAMIN TAB PO SCH (07:47)
[2017-10-17] MEDS: TICAGRELOR 90 MG TAB PO SCH ×2 (07:47→20:23)
[2017-10-17] MEDS: CYANOCOBALAMIN 1,000 MCG TAB PO SCH (07:47)
[2017-10-17] MEDS: CALCITRIOL 0.25 MCG CAP PO SCH (07:47)
[2017-10-17] MEDS: SODIUM CHLORIDE 0.9% FLUSH 10 ML FLUSH IV FLUSH SCH ×2 (07:48→20:38)
[2017-10-17] MEDS: CARVEDILOL 12.5 MG TAB PO SCH ×2 (07:51→20:21)
[2017-10-17] MEDS: LACTOBACILLUS ACIDOPHILUS TAB PO SCH ×3 (08:00→16:41)
[2017-10-17] MEDS: SODIUM CHLORIDE 1 GRAM TAB PO SCH ×2 (08:02→20:23)
[2017-10-17] MEDS: ASPIRIN 81 MG CHEW TAB CHEW SCH (09:00)
--- NOTE | 2017-10-17 09:49 | HHI.FPPN ---
Subjective Remarks Pt seen and examined this morning. No acute events overnight. Pt states her pain is slightly improved from yesterday. Denies any fever/chills, chest pain, SOB, leg pain. Is wondering when she can go home. Occasional diarrhea. No nausea /vomiting. (Fran Hunt MD R2) Objective Vitals Vital Signs Date Time Temp Pulse Resp B/P (MAP) Pulse Ox O2 Delivery O2 Flow Rate FiO2 10/17/17 08:00 98.3 79 18 114/61 (78) 91 10/17/17 00:00 97.5 78 16 109/59 (76) 97 10/16/17 19:59 97.8 79 18 116/69 (85) 94 10/16/17 16:00 98.0 90 18 100/57 (71) 93 10/16/17 15:27 97 10/16/17 12:00 97.5 113 18 98/52 (67) 97 I/O 10/16/17 10/16/17 10/16/17 10/17/17 10/17/17 10/17/17 07:00 15:00 23:00 07:00 15:00 23:00 Intake Total 490 ml 0 ml 768 ml Output Total 300 ml 1500 ml Balance 190 ml -1500 ml 768 ml Intake Oral 240 ml 768 ml IV Total 250 ml 0 ml Output Urine Total 300 ml Hemodialysis 1500 ml # Voids 4 # Bowel Movements 0 (Fran Hunt MD R2) Result Diagram: 10/17/178 10/17/17 0448 Objective Remarks GENERAL: Well-nourished, well-developed female lying in bed in no acute distress. CARDIOVASCULAR: Regular rate and rhythm without obvious murmurs, gallops, or rubs. RESPIRATORY: Clear to auscultation bilaterally with no crackles, wheezes, or rhonchi. No increased work of breathing. GASTROINTESTINAL: Abdomen soft, nondistended with positive bowel sounds. Tender to palpation in both the right upper and lower quadrants. Abdomen is more firm on the right side. Negative Daniel sign. Negative fluid wave. Negative rebound tenderness. MUSCULOSKELETAL: No cyanosis or edema. No calf tenderness. NEURO/PSYCH: Afocal. Awake, alert, and oriented x3. Normal speech and judgement. (Fran Hunt MD R2) A/P Assessment and Plan Mrs. Alicia is a 62 y/o F with PMH of DM, HTN, NSTEMI, CKD requiring dialysis MWF, hypothyroidism presenting with abdominal pain and nausea with vomiting and diarrhea found to have colitis and UTI. CT abdomen on admission significant for inflammatory changes in the ascending colon, air seen throughout bladder marsh with emphysematous cystitis suspected. Treatment as below. Discharge Planning Will likely need several more days of antibiotics to treat colitis (Fran Hunt MD R2) Attending Attestation Patient seen and examined. Case reviewed and discussed with the resident team. Patient feels that Dilaudid has helped her with her pain and also with sleep, but does not feel ready to go home yet due to pain with ambulation. Agree with plan of care as discussed with me and documented in the resident note. (Naomi Mott MD) Problem List: (1) C. difficile colitis ICD Codes: A04.72 - Enterocolitis due to Clostridium difficile, not specified as recurrent Status: Acute Plan: -CT: Inflammatory changes around the ascending colon concerning for colitis, and air seen throughout the bladder marsh, emphysematous cystitis suspected, colonic diverticula, nonobstructing tiny renal stones, possible gallstones Clostridium difficile positive. -Continue by mouth vancomycin 125 mg 4 times daily and Flagyl 500 mg IV every 8 (2) Pyelonephritis ICD Codes: N12 - Tubulo-interstitial nephritis, not specified as acute or chronic Status: Acute Plan: CT: Inflammatory changes around the ascending colon concerning for colitis, and air seen throughout the bladder marsh, emphysematous cystitis suspected, colonic diverticula, nonobstructing tiny renal stones, possible gallstones UA: Cloudy, 300 protein, trace ketones, moderate occult blood, large leukocyte esterase, 62 RBC, moderate white blood cell clumps, many bacteria Urine culture Klebsiella: pansensitive -Continue Zosyn (3) Sepsis ICD Codes: A41.9 - Sepsis, unspecified organism Status: Resolved Plan: Blood culture negative 2 days. Urine culture growing Klebsiella, pansensitive Treat as above for colitis and UTI (4) CKD (chronic kidney disease) stage 5, GFR less than 15 ml/min ICD Codes: N18.5 - Chronic kidney disease, stage 5 Status: Chronic Plan: -Patient with end-stage renal disease currently on Monday, Monday, Monday hemodialysis -Consult nephrology, patient known to Dr. Corral -Cautious IV fluids -Continue multivitamin, calcitriol, B12, sodium chloride, and magnesium (5) CAD (coronary artery disease) ICD Codes: I25.10 - Atherosclerotic heart disease of [place] coronary artery without angina pectoris Status: Chronic Plan: -Stable, asymptomatic. -Continue ASA, statin, Brilinta. (6) DM2 (diabetes mellitus, type 2) ICD Codes: E11.9 - Type 2 diabetes mellitus without complications Status: Chronic Plan: -Per chart review, patient currently not on any home medications per review -Low-dose sliding scale per protocol (7) HTN (hypertension) ICD Codes: I10 - HTN (hypertension) Status: Chronic Plan: -Continue home medications hydralazine, carvedilol, bumetanide (8) COPD (chronic obstructive pulmonary disease) ICD Codes: J44.9 - Chronic obstructive pulmonary disease, unspecified Status: Chronic Plan: -Albuterol as needed for shortness of breath/wheezing -Incentive spirometry (9) Hypothyroidism ICD Codes: E03.9 - Hypothyroidism, unspecified Status: Chronic Plan: -Continue levothyroxine 50 mcg daily (10) Nutrition, metabolism, and development symptoms ICD Codes: R63.8 - Other symptoms and signs concerning food and fluid intake Status: Acute Plan: Fluids: Careful with IV fluids given ESRD Electrolytes: Monitor and replete as needed Nutrition: Carb constant diet ordered with sodium and fluid restriction Prophylaxis: Restoril as needed for insomnia, clonidine as needed for blood pressure greater than 180/110, albuterol as needed for shortness of breath/ wheezing, lactobacillus for GI health, constipation protocol, famotidine as needed for reflux (11) DVT Prophylaxis Status: Acute Plan: -SCDs, early ambulation -Chemoppx contraindicated due to positive Hemoccult (Fran Hunt MD R2) Problem Qualifiers (1) Sepsis: Qualified Codes: A41.9 - Sepsis, unspecified organism (2) CAD (coronary artery disease): (3) DM2 (diabetes mellitus, type 2): Qualified Codes: E11.22 - Type 2 diabetes mellitus with diabetic chronic kidney disease; N18.6 - End stage renal disease; Z99.2 - Dependence on renal dialysis (4) HTN (hypertension): Qualified Codes: I10 - Essential (primary) hypertension (5) COPD (chronic obstructive pulmonary disease): Qualified Codes: J44.9 - Chronic obstructive pulmonary disease, unspecified Fran Hunt MD R2 October 17, 2017 09:49 Naomi Mott MD October 17, 2017 14:12
--- NOTE | 2017-10-17 11:34 | HHI.NPPN ---
Subjective General Problems: Anemia Renal Failure: Chronic, End Stage Renal Disease Interval History Feeling better. Had dialysis yesterday. Tolerating diet without nausea/ vomiting. (Cris Telles) Review of Systems Gastrointestinal Gastrointestinal: Abdominal Pain, Nausea & Vomiting GI Remarks change in appetite (Cris Telles) Objective Data Data 10/17/17 10/18/17 19:00 07:00 Intake Total 100 ml Balance 100 ml IV Total 100 ml Vital Signs Date Time Temp Pulse Resp B/P (MAP) Pulse Ox O2 Delivery O2 Flow Rate FiO2 10/17/17 08:00 98.3 79 18 114/61 (78) 91 10/17/17 00:00 97.5 78 16 109/59 (76) 97 10/16/17 19:59 97.8 79 18 116/69 (85) 94 10/16/17 16:00 98.0 90 18 100/57 (71) 93 10/16/17 15:27 97 10/16/17 12:00 97.5 113 18 98/52 (67) 97 (Cris Telles) -: 10/17/17 0448 10/17/17 0448 Imaging Last 72 hours Impressions Abdomen/Pelvis CT 10/14/17 1342 Signed Impressions: Service Date/Time: Saturday, October 14, 2017 13:53 - CONCLUSION: 1. Inflammatory changes around the ascending colon concerning for colitis. 2. Air seen throughout the bladder marsh. Emphysematous cystitis needs to be suspected. This is more commonly seen in diabetics. 3. Colonic diverticula. 4. Nonobstructing tiny renal stones. 5. Possible gallstones. Keegan Savage MD (Cris Telles) Physical Exam General Appearance: Well Developed, No Acute Distress, Comfortable (Cris Telles) Throat Throat Exam: Oral Mucosa [place] & Moist (Cris Telles) Pulmonary Resp Exam: Clear Bilaterally, Breath Sounds Equal (Cris Telles) Cardiology CV Exam: Regular, Normal Sinus Rhythm, Good Perfusion (Cris Telles) Gastrointestinal/Abdomen GI Exam: Soft, Non-Tender, Bowel Sounds Present (Cris Telles) Musculoskeletal MS Exam: Joints Intact, Normal Tone, Good Strength (Cris Telles) Integumentary Skin Exam: Clear, Warm, Dry, Intact (Cris Telles) Extremeties Extremities Exam: No Edema, Pedal Pulses Palpable (Cris Telles) Neurologic Neuro Exam: Alert, Awake, Oriented, Speech Clear, Moving All Extremities (Cris Telles) Psychiatric Psych Exam: Appropriate Responses (Cris Telles) Assessment/Plan Discussed Condition With: Patient Assessment Summary: Anemia of CKD Problem List: (1) ESRD (end stage renal disease) on dialysis ICD Codes: N18.6 - End stage renal disease; Z99.2 - Dependence on renal dialysis Plan: Continue dialysis MWF She still makes some urine, on Bumex PO Intermittently monitor electrolyte profile, replace as needed Avoid IVF administration Has Klebsiella UTI, pansensitive , on Zosyn Permcath for HD use, has appointment for outpatient vein mapping and AVF placement Epogen ordered to be given during dialysis (2) DM2 (diabetes mellitus, type 2) ICD Codes: E11.9 - Type 2 diabetes mellitus without complications Status: Chronic Plan: Insulin as needed, maintain glucose 140-180 mg/dL. (3) HTN (hypertension) ICD Codes: I10 - HTN (hypertension) Status: Chronic Plan: continue medications as ordered (4) C. difficile colitis ICD Codes: A04.72 - Enterocolitis due to Clostridium difficile, not specified as recurrent Status: Acute Plan: On PO Vanc and IV flagyl contact precautions (5) Abdominal pain ICD Codes: R10.9 - Unspecified abdominal pain Plan: Continued pain, imaging shows colitis, possible gall stones Diet as tolerated (Cris Telles) Plan patient was seen and examined. Recommend to stop Zosyn (klebsiella is pansensitive). Ceftriaxone would have been suffice, stop after 3-5 days. C.diff is recurrent, would recommend to stop other systemic antimicrobials. (Fantasma Corral MD) Problem Qualifiers (1) DM2 (diabetes mellitus, type 2): Qualified Codes: E11.22 - Type 2 diabetes mellitus with diabetic chronic kidney disease; N18.6 - End stage renal disease; Z99.2 - Dependence on renal dialysis (2) HTN (hypertension): Qualified Codes: I10 - Essential (primary) hypertension Cris Telles October 17, 2017 11:34 Fantasma Corral MD October 17, 2017 13:49
[2017-10-17] MEDS ORDERED: FAMOTIDINE 20 MG TAB PO PRN (13:30)
[2017-10-17] MEDS: ATORVASTATIN 10 MG TAB PO SCH (20:22)
[2017-10-17] MEDS: TEMAZEPAM 15 MG CAP PO PRN (20:22)
[2017-10-18] VITALS (7 sets, daily range): BP systolic 132–161; BP diastolic 63–82; PULSE 73–90; RESP 17–18; TEMP 97.7–98.5; O2SAT 93–97
[2017-10-18] MEDS: metroNIDAZOLE 500 MG INJ 100 ML IV SCH ×3 (01:22→16:56)
[2017-10-18] MEDS: HYDROmorphone HCL PF 2 MG/ML VIAL IV PUSH PRN ×3 (01:22→20:31)
[2017-10-18] MEDS: PIPERACIL-TAZO 2.25 GM PREMIX 50 ML IV SCH (01:45)
[2017-10-18] MEDS: LEVOTHYROXINE SODIUM 50 MCG TAB PO SCH (05:27)
[2017-10-18] MEDS: METOCLOPRAMIDE HCL 10 MG TAB PO SCH ×2 (05:27→16:56)
[2017-10-18] MEDS: hydrALAZINE HCL 25 MG TAB PO SCH ×3 (05:27→20:30)
[2017-10-18] MEDS: LACTOBACILLUS ACIDOPHILUS TAB PO SCH ×3 (08:00→16:56)
[2017-10-18] MEDS: INSULIN ASPART SUPPLEMENTAL SCALE SQ SCH ×4 (08:00→20:48)
[2017-10-18 08:51] LABS: BASOPHIL # 0.1 TH/MM3 (0-0.2); BASOPHIL % 0.5 % (0.0-2.0); EOSINOPHIL # 0.3 TH/MM3 (0-0.4); EOSINOPHIL % 2.5 % (0.0-4.0); HEMATOCRIT 32.6 % (35.0-46.0); HEMOGLOBIN 10.7 GM/DL (11.6-15.3); LYMPH % 12.4 % (9.0-44.0); LYMPHOCYTE # 1.3 TH/MM3 (1.0-4.8); MEAN CELL VOLUME 101.1 FL (80.0-100.0); MEAN CORPUSCULAR HEMOGLOBIN 33.2 PG (27.0-34.0); MEAN CORPUSCULAR HGB CONC 32.8 % (32.0-36.0); MEAN PLATELET VOLUME 8.2 FL (7.0-11.0); MONO % 9.4 % (0.0-8.0); NEUT % 75.2 % (16.0-70.0); PLATELET COUNT 286 TH/MM3 (150-450); RED BLOOD COUNT 3.23 MIL/MM3 (4.00-5.30); RED CELL DISTRIBUTION WIDTH 15.8 % (11.6-17.2); WHITE BLOOD COUNT 10.7 TH/MM3 (4.0-11.0)
[2017-10-18] MEDS: TICAGRELOR 90 MG TAB PO SCH ×2 (09:00→20:28)
[2017-10-18] MEDS: MAGNESIUM OXIDE 400 MG TAB PO SCH ×2 (09:00→20:29)
[2017-10-18] MEDS: SODIUM CHLORIDE 1 GRAM TAB PO SCH ×2 (09:00→20:38)
[2017-10-18] MEDS: CARVEDILOL 12.5 MG TAB PO SCH ×2 (09:00→20:28)
[2017-10-18] MEDS: SODIUM CHLORIDE 0.9% FLUSH 10 ML FLUSH IV FLUSH SCH ×2 (09:00→20:37)
[2017-10-18] MEDS: CYANOCOBALAMIN 1,000 MCG TAB PO SCH (09:00)
[2017-10-18] MEDS: VANCOMYCIN 500 MG VIAL (FOR ORAL USE ONLY) PO SCH ×4 (09:00→20:47)
[2017-10-18] MEDS: DOCUSATE SODIUM 50 MG/SENNA 8.6 MG TAB PO SCH ×2 (09:00→20:37)
[2017-10-18] MEDS: CALCITRIOL 0.25 MCG CAP PO SCH (09:00)
[2017-10-18] MEDS: BUMETANIDE 1 MG TAB PO SCH ×2 (09:00→17:05)
[2017-10-18] MEDS: ASPIRIN 81 MG CHEW TAB CHEW SCH (09:00)
[2017-10-18] MEDS: MULTIVITAMIN TAB PO SCH (09:00)
[2017-10-18 09:27] LABS: BICARBONATE 27.1 MEQ/L (21.0-32.0); CALCIUM 8.2 MG/DL (8.5-10.1); CREATININE 4.15 MG/DL (0.50-1.00)
--- NOTE | 2017-10-18 09:33 | HHI.NPPN ---
Subjective General Problems: Anemia Renal Failure: Chronic, End Stage Renal Disease Interval History Seen during dialysis. No new issues. Tolerating diet. (Cris Telles) Review of Systems Gastrointestinal Gastrointestinal: Abdominal Pain, Nausea & Vomiting GI Remarks change in appetite (Cris Telles) Objective Data Data 10/18/17 10/19/17 19:00 07:00 Intake Total 150 ml Balance 150 ml IV Total 150 ml Vital Signs Date Time Temp Pulse Resp B/P (MAP) Pulse Ox O2 Delivery O2 Flow Rate FiO2 10/18/17 08:00 97.7 77 17 142/67 (92) 93 10/18/17 04:00 98.0 73 18 149/66 (93) 93 10/18/17 00:00 97.8 78 18 147/63 (91) 96 10/17/17 20:00 98.2 78 18 192/77 (115) 97 10/17/17 16:00 97.5 79 18 125/68 (87) 97 10/17/17 15:35 73 10/17/17 12:00 98.1 73 18 120/56 (77) 95 (Cris Telles) -: 10/18/17 0640 10/18/17 0640 Physical Exam General Appearance: Well Developed, No Acute Distress, Comfortable (Cris Telles) Throat Throat Exam: Oral Mucosa [place] & Moist (Cris Telles) Pulmonary Resp Exam: Clear Bilaterally, Breath Sounds Equal (Cris Telles) Cardiology CV Exam: Regular, Normal Sinus Rhythm, Good Perfusion (Cris Telles) Gastrointestinal/Abdomen GI Exam: Soft, Non-Tender, Bowel Sounds Present (Cris Telles) Musculoskeletal MS Exam: Joints Intact, Normal Tone, Good Strength (Cris Telles) Integumentary Skin Exam: Clear, Warm, Dry, Intact (Cris Telles) Extremeties Extremities Exam: No Edema, Pedal Pulses Palpable (Cris Telles) Neurologic Neuro Exam: Alert, Awake, Oriented, Speech Clear, Moving All Extremities (Cris Telles) Psychiatric Psych Exam: Appropriate Responses (Cris Telles) Assessment/Plan Discussed Condition With: Patient Assessment Summary: Anemia of CKD, Diabetes Mellitus, End Stage Renal Disease Problem List: (1) ESRD (end stage renal disease) on dialysis ICD Codes: N18.6 - End stage renal disease; Z99.2 - Dependence on renal dialysis Plan: Seen during dialysis today on a 3K, 350 BFR, goal 2.3L. Continue dialysis MWF She still makes some urine, on Bumex PO Intermittently monitor electrolyte profile, replace as needed Avoid IVF administration Being treated for Klebsiella UTI, pansensitive , was on Rocephin, now on on Zosyn. Consider reducing systemic antimicrobial agents due to recurrent C Diff. Permcath for HD use, has appointment for outpatient vein mapping and AVF placement Epogen ordered to be given during dialysis (2) DM2 (diabetes mellitus, type 2) ICD Codes: E11.9 - Type 2 diabetes mellitus without complications Status: Chronic Plan: Insulin as needed, maintain glucose 140-180 mg/dL. (3) HTN (hypertension) ICD Codes: I10 - HTN (hypertension) Status: Chronic Plan: continue medications as ordered (4) C. difficile colitis ICD Codes: A04.72 - Enterocolitis due to Clostridium difficile, not specified as recurrent Status: Acute Plan: On PO Vanc and IV flagyl contact precautions (5) Abdominal pain ICD Codes: R10.9 - Unspecified abdominal pain Plan: Continued pain, imaging shows colitis, possible gall stones Diet as tolerated Plan Cleared for discharge from renal perspective. (Cris Telles) Plan patient was seen and examined. Agree with above assessment and plan. Stop Zosyn. (Fantasma Corral MD) Problem Qualifiers (1) DM2 (diabetes mellitus, type 2): Qualified Codes: E11.22 - Type 2 diabetes mellitus with diabetic chronic kidney disease; N18.6 - End stage renal disease; Z99.2 - Dependence on renal dialysis (2) HTN (hypertension): Qualified Codes: I10 - Essential (primary) hypertension Cris Telles October 18, 2017 09:33 Fantasma Corral MD October 18, 2017 10:17
--- NOTE | 2017-10-18 10:24 | HHI.FPPN ---
Subjective Remarks No acute events overnight. Patient states that she continues to have abdominal pain that is not improving. She states that now the pain is migrated over to her midabdomen as well. Stools are currently more formed. Denies chest pain or shortness of breath. (Ziggy Anthony MD R1) Objective Vitals Vital Signs Date Time Temp Pulse Resp B/P (MAP) Pulse Ox O2 Delivery O2 Flow Rate FiO2 10/18/17 08:00 97.7 77 17 142/67 (92) 93 10/18/17 04:00 98.0 73 18 149/66 (93) 93 10/18/17 00:00 97.8 78 18 147/63 (91) 96 10/17/17 20:00 98.2 78 18 192/77 (115) 97 10/17/17 16:00 97.5 79 18 125/68 (87) 97 10/17/17 15:35 73 10/17/17 12:00 98.1 73 18 120/56 (77) 95 I/O 10/17/17 10/17/17 10/17/17 10/18/17 10/18/17 10/18/17 07:00 15:00 23:00 07:00 15:00 23:00 Intake Total 100 ml 840 ml 150 ml Balance 100 ml 840 ml 150 ml Intake Oral 840 ml IV Total 100 ml 150 ml # Voids 2 # Bowel Movements 1 (Ziggy Anthony MD R1) Result Diagram: 10/18/17 0640 10/18/17 0640 Objective Remarks GENERAL: Well-nourished, well-developed female lying in bed in no acute distress. CARDIOVASCULAR: Regular rate and rhythm without obvious murmurs, gallops, or rubs. RESPIRATORY: Clear to auscultation bilaterally with no crackles, wheezes, or rhonchi. No increased work of breathing. GASTROINTESTINAL: Abdomen soft, nondistended with positive bowel sounds. Tender to palpation in both the right upper and lower quadrants as well as the epigastric region. Abdomen is more firm on the right side -unchanged from prior exam. Negative Daniel sign. Negative fluid wave. Negative rebound tenderness. MUSCULOSKELETAL: No cyanosis or edema. No calf tenderness. NEURO/PSYCH: Afocal. Awake, alert, and oriented x3. Normal speech and judgement. (Ziggy Anhtony MD R1) A/P Assessment and Plan Mrs. Alicia is a 62 y/o F with PMH of DM, HTN, NSTEMI, CKD requiring dialysis MWF, hypothyroidism presenting with abdominal pain and nausea with vomiting and diarrhea found to have colitis and UTI. CT abdomen on admission significant for inflammatory changes in the ascending colon, air seen throughout bladder marsh with emphysematous cystitis suspected. Found to be positive for C. difficile on 10/15. Treatment as below. Discharge Planning Will likely need several more days of antibiotics to treat colitis (Ziggy Anthony MD R1) Attending Attestation Patient seen and examined. Case reviewed and discussed with the Dr. Anthony. Agree with plan of care as discussed with me and documented in the resident note . (Naomi Mott MD) Problem List: (1) C. difficile colitis ICD Codes: A04.72 - Enterocolitis due to Clostridium difficile, not specified as recurrent Status: Acute Plan: -CT: Inflammatory changes around the ascending colon concerning for colitis, and air seen throughout the bladder marsh, emphysematous cystitis suspected, colonic diverticula, nonobstructing tiny renal stones, possible gallstones Clostridium difficile positive. -Continue by mouth vancomycin 125 mg 4 times daily and Flagyl 500 mg IV every 8 Treatment started on 10/15. Will require 10-14 days treatment Continue to have abdominal pain that is not resolving Repeating CT abdomen without contrast on 10/18 (2) Pyelonephritis ICD Codes: N12 - Tubulo-interstitial nephritis, not specified as acute or chronic Status: Acute Plan: CT: Inflammatory changes around the ascending colon concerning for colitis, and air seen throughout the bladder marsh, emphysematous cystitis suspected, colonic diverticula, nonobstructing tiny renal stones, possible gallstones UA: Cloudy, 300 protein, trace ketones, moderate occult blood, large leukocyte esterase, 62 RBC, moderate white blood cell clumps, many bacteria Urine culture Klebsiella: pansensitive -Continue Zosyn Repeating CT abdomen without contrast on 10/18 (3) Sepsis ICD Codes: A41.9 - Sepsis, unspecified organism Status: Resolved Plan: Currently resolved Blood culture negative 3 days. Urine culture growing Klebsiella, pansensitive Treat as above for colitis and UTI (4) CKD (chronic kidney disease) stage 5, GFR less than 15 ml/min ICD Codes: N18.5 - Chronic kidney disease, stage 5 Status: Chronic Plan: -Patient with end-stage renal disease currently on Monday, Monday, Monday hemodialysis -Consult nephrology, patient known to Dr. Corral -Cautious IV fluids -Continue multivitamin, calcitriol, B12, sodium chloride, and magnesium (5) CAD (coronary artery disease) ICD Codes: I25.10 - Atherosclerotic heart disease of [place] coronary artery without angina pectoris Status: Chronic Plan: -Stable, asymptomatic. -Continue ASA, statin, Brilinta. (6) DM2 (diabetes mellitus, type 2) ICD Codes: E11.9 - Type 2 diabetes mellitus without complications Status: Chronic Plan: -Per chart review, patient currently not on any home medications per review -Low-dose sliding scale per protocol (7) HTN (hypertension) ICD Codes: I10 - HTN (hypertension) Status: Chronic Plan: -Continue home medications hydralazine, carvedilol, bumetanide (8) COPD (chronic obstructive pulmonary disease) ICD Codes: J44.9 - Chronic obstructive pulmonary disease, unspecified Status: Chronic Plan: -Albuterol as needed for shortness of breath/wheezing -Incentive spirometry (9) Hypothyroidism ICD Codes: E03.9 - Hypothyroidism, unspecified Status: Chronic Plan: -Continue levothyroxine 50 mcg daily (10) Nutrition, metabolism, and development symptoms ICD Codes: R63.8 - Other symptoms and signs concerning food and fluid intake Status: Acute Plan: Fluids: Careful with IV fluids given ESRD Electrolytes: Monitor and replete as needed Nutrition: Carb constant diet ordered with sodium and fluid restriction Prophylaxis: Restoril as needed for insomnia, clonidine as needed for blood pressure greater than 180/110, albuterol as needed for shortness of breath/ wheezing, lactobacillus for GI health, constipation protocol, famotidine as needed for reflux (11) DVT Prophylaxis Status: Acute Plan: -SCDs, early ambulation -Chemoppx contraindicated due to positive Hemoccult (Ziggy Anthony MD R1) Problem Qualifiers (1) Sepsis: Qualified Codes: A41.9 - Sepsis, unspecified organism (2) CAD (coronary artery disease): (3) DM2 (diabetes mellitus, type 2): Qualified Codes: E11.22 - Type 2 diabetes mellitus with diabetic chronic kidney disease; N18.6 - End stage renal disease; Z99.2 - Dependence on renal dialysis (4) HTN (hypertension): Qualified Codes: I10 - Essential (primary) hypertension (5) COPD (chronic obstructive pulmonary disease): Qualified Codes: J44.9 - Chronic obstructive pulmonary disease, unspecified Ziggy Anthony MD R1 October 18, 2017 10:24 Naomi Mott MD October 18, 2017 12:35
[2017-10-18] MEDS: GENTAMICIN SULFATE 20 MG/2 ML VIAL OTHER PRN (11:45)
[2017-10-18] MEDS: EPOETIN ALFA 10,000 UNITS/ML VIAL IV SCH (11:46)
--- NOTE | 2017-10-18 17:18 | RADRPT ---
EXAM DATE/TIME: 10/18/2017 16:30 [facility] COMPARISON: CT ABDOMEN & PELVIS W/O CONTRAST, October 14, 2017, 13:53. INDICATIONS : Diffuse abdomen pain ORAL CONTRAST: No oral contrast ingested. RADIATION DOSE: 7.58 CTDIvol (mGy) MEDICAL HISTORY : Cardiovascular disease. Hypertension. Chronic obstructive pulmonary disease.Colitis,gastric ulcer,jhonatan al disease SURGICAL HISTORY : Appendectomy. ENCOUNTER: Initial ACUITY: 2 days PAIN SCALE: 5/10 LOCATION: Abdomen TECHNIQUE: Volumetric scanning of the abdomen and pelvis was performed. Using automated exposure control and ad justment of the mA and/or kV according to patient size, radiation dose was kept as low as reasonably achievable to obtain optimal diagnostic quality images. DICOM format image data is available electro nically for review and comparison. The lack of IV contrast limits the diagnosis for certain organ pat hology. FINDINGS: LOWER LUNGS: Mild atelectasis both lung bases. LIVER: Homogeneous density without lesion. There is no dilation of the biliary tree. There continues to be calcified gallstones in the gallbladder. SPLEEN: Normal size without lesion. PANCREAS: Within normal limits. KIDNEYS: Normal in size and shape. There is no mass or hydronephrosis. Several tiny bilateral nonobstructing stones. No significant changes. ADRENAL GLANDS: Within normal limits. VASCULAR: There is no aortic aneurysm. BOWEL/MESENTERY: There continues to be inflammatory type changes involving the right colon. This is mildly improved co mpared to the prior exam. Otherwise the bowel gas pattern is stable. There is scattered diverticulosi s throughout the left colon and sigmoid colon without inflammatory changes. There is stool throughout the colon. ABDOMINAL WALL: Within normal limits. RETROPERITONEUM: There is no lymphadenopathy. BLADDER: The previously noted air throughout the urinary bladder wall has significantly improved. It continues to be a small amount of air in the urinary bladder wall as well as some free air in the bladder. REPRODUCTIVE: Within normal limits. INGUINAL: There is no lymphadenopathy or hernia. Stable nonspecific soft tissue density in the right inguinal a vida. MUSCULOSKELETAL: Within normal limits for patient age. CONCLUSION: 1. There has been some improvement of the inflammatory changes involving the right colon compared to the prior study. However, there continues to be inflammatory changes present on today's study involvi ng the right colon.. 2. Gallstones in the gallbladder. No biliary tract obstruction. 3. Several tiny nonobstructing bilateral kidney stones. No significant change 4. There is an overall improvement with the air throughout the urinary bladder wall. Small amount of residual bladder wall air is remaining with some free air in the urinary bladder. 5. Scattered diverticulosis of the left colon and sigmoid colon without inflammatory changes. Diogenes Bowie MD on October 18, 2017 at 17:10 Board Certified Radiologist. This report was verified electronically.
[2017-10-18] MEDS: ATORVASTATIN 10 MG TAB PO SCH (20:30)
[2017-10-18] MEDS: TEMAZEPAM 15 MG CAP PO PRN (20:37)
[2017-10-19] VITALS: BP 142/66; PULSE 78; RESP 14; TEMP 98; O2SAT 98
[2017-10-19] MEDS: metroNIDAZOLE 500 MG INJ 100 ML IV SCH ×2 (02:35→10:52)
[2017-10-19 06:00] VITALS: BP 169/77
[2017-10-19] MEDS: LEVOTHYROXINE SODIUM 50 MCG TAB PO SCH (06:01)
[2017-10-19] MEDS: METOCLOPRAMIDE HCL 10 MG TAB PO SCH (06:01)
[2017-10-19] MEDS: hydrALAZINE HCL 25 MG TAB PO SCH (06:01)
[2017-10-19] MEDS: HYDROmorphone HCL PF 2 MG/ML VIAL IV PUSH PRN (06:02)
[2017-10-19 08:00] VITALS: BP 169/77; PULSE 81; RESP 17; TEMP 97.6; O2SAT 95
[2017-10-19] MEDS: INSULIN ASPART SUPPLEMENTAL SCALE SQ SCH (08:00)
[2017-10-19] MEDS ORDERED: VANC125C3 PO (08:26)
[2017-10-19] MEDS ORDERED: PERC5TAB12 PO (08:26)
[2017-10-19] MEDS ORDERED: METR-1 PO (08:26)
--- NOTE | 2017-10-19 08:49 | HHI.FPPN ---
Subjective Remarks Pt seen and examined this morning. No acute events overnight. Pt states her pain is much improved this morning. Stools are improving, less loose. Denies any fever/chills, nausea/vomiting, chest pain, SOB. She is wanting to go home. Objective Vitals Vital Signs Date Time Temp Pulse Resp B/P (MAP) Pulse Ox O2 Delivery O2 Flow Rate FiO2 10/19/17 06:00 169/77 (107) 10/19/17 00:00 98.0 78 14 142/66 (91) 98 10/18/17 20:26 98.1 86 18 161/73 (102) 97 10/18/17 16:00 97.8 85 17 132/66 (88) 94 10/18/17 13:30 97 21 10/18/17 12:00 98.5 90 17 141/82 (101) 97 I/O 10/18/17 10/18/17 10/18/17 10/19/17 10/19/17 10/19/17 07:00 15:00 23:00 07:00 15:00 23:00 Intake Total 150 ml 720 ml 340 ml Output Total 3000 ml Balance -2850 ml 720 ml 340 ml Intake Oral 720 ml 240 ml IV Total 150 ml 100 ml Hemodialysis 3000 ml # Voids 2 3 # Bowel Movements 1 0 Result Diagram: 10/18/17 0640 10/18/17 0640 Imaging Last Impressions Abdomen/Pelvis CT 10/18/17 0000 Signed Impressions: Service Date/Time: Wednesday, October 18, 2017 16:30 - CONCLUSION: 1. There has been some improvement of the inflammatory changes involving the right colon compared to the prior study. However, there continues to be inflammatory changes present on today's study involving the right colon.. 2. Gallstones in the gallbladder. No biliary tract obstruction. 3. Several tiny nonobstructing bilateral kidney stones. No significant change 4. There is an overall improvement with the air throughout the urinary bladder wall. Small amount of residual bladder wall air is remaining with some free air in the urinary bladder. 5. Scattered diverticulosis of the left colon and sigmoid colon without inflammatory changes. Diogenes Bowie MD Objective Remarks GENERAL: Well-nourished, well-developed female lying in bed in no acute distress. CARDIOVASCULAR: Regular rate and rhythm without obvious murmurs, gallops, or rubs. RESPIRATORY: Clear to auscultation bilaterally with no crackles, wheezes, or rhonchi. GASTROINTESTINAL: Abdomen soft, nondistended with positive bowel sounds. Much less tenderness today. Tender to deep palpation in RLQ. MUSCULOSKELETAL: No cyanosis or edema. No calf tenderness. NEURO/PSYCH: Afocal. Awake, alert, and oriented x3. Normal speech and judgement. A/P Assessment and Plan Mrs. Alicia is a 62 y/o F with PMH of DM, HTN, NSTEMI, CKD requiring dialysis MWF, hypothyroidism presenting with abdominal pain and nausea with vomiting and diarrhea found to have colitis and UTI. CT abdomen on admission significant for inflammatory changes in the ascending colon, air seen throughout bladder marsh with emphysematous cystitis suspected. Found to be positive for C. difficile on 10/15. Treatment as below. Discharge Planning Today with clinical improvement Problem List: (1) C. difficile colitis ICD Codes: A04.72 - Enterocolitis due to Clostridium difficile, not specified as recurrent Status: Acute Plan: -CT: Inflammatory changes around the ascending colon concerning for colitis, and air seen throughout the bladder marsh, emphysematous cystitis suspected, colonic diverticula, nonobstructing tiny renal stones, possible gallstones Clostridium difficile positive. Repeat CT shows improving colitis -Continue by mouth vancomycin 125 mg 4 times daily and Flagyl 500 mg IV every 8 Treatment started on 10/15. Will require 10-14 days treatment -Dilaudid for pain, will transition to oral Percocet (2) Pyelonephritis ICD Codes: N12 - Tubulo-interstitial nephritis, not specified as acute or chronic Status: Resolved Plan: CT: Inflammatory changes around the ascending colon concerning for colitis, and air seen throughout the bladder marsh, emphysematous cystitis suspected, colonic diverticula, nonobstructing tiny renal stones, possible gallstones UA: Cloudy, 300 protein, trace ketones, moderate occult blood, large leukocyte esterase, 62 RBC, moderate white blood cell clumps, many bacteria Urine culture Klebsiella: pansensitive -Stopped zosyn (3) Sepsis ICD Codes: A41.9 - Sepsis, unspecified organism Status: Resolved Plan: Currently resolved Blood culture negative 3 days. Urine culture growing Klebsiella, pansensitive Treat as above for colitis and UTI (4) CKD (chronic kidney disease) stage 5, GFR less than 15 ml/min ICD Codes: N18.5 - Chronic kidney disease, stage 5 Status: Chronic Plan: -Patient with end-stage renal disease currently on Monday, Monday, Monday hemodialysis -Consult nephrology, patient known to Dr. Corral -Cautious IV fluids -Continue multivitamin, calcitriol, B12, sodium chloride, and magnesium (5) CAD (coronary artery disease) ICD Codes: I25.10 - Atherosclerotic heart disease of [place] coronary artery without angina pectoris Status: Chronic Plan: -Stable, asymptomatic. -Continue ASA, statin, Brilinta. (6) DM2 (diabetes mellitus, type 2) ICD Codes: E11.9 - Type 2 diabetes mellitus without complications Status: Chronic Plan: -Per chart review, patient currently not on any home medications per review -Low-dose sliding scale per protocol (7) HTN (hypertension) ICD Codes: I10 - HTN (hypertension) Status: Chronic Plan: -Continue home medications hydralazine, carvedilol, bumetanide (8) COPD (chronic obstructive pulmonary disease) ICD Codes: J44.9 - Chronic obstructive pulmonary disease, unspecified Status: Chronic Plan: -Albuterol as needed for shortness of breath/wheezing -Incentive spirometry (9) Hypothyroidism ICD Codes: E03.9 - Hypothyroidism, unspecified Status: Chronic Plan: -Continue levothyroxine 50 mcg daily (10) Nutrition, metabolism, and development symptoms ICD Codes: R63.8 - Other symptoms and signs concerning food and fluid intake Status: Acute Plan: Fluids: Careful with IV fluids given ESRD Electrolytes: Monitor and replete as needed Nutrition: Carb constant diet ordered with sodium and fluid restriction Prophylaxis: Restoril as needed for insomnia, clonidine as needed for blood pressure greater than 180/110, albuterol as needed for shortness of breath/ wheezing, lactobacillus for GI health, constipation protocol, famotidine as needed for reflux (11) DVT Prophylaxis Status: Acute Plan: -SCDs, early ambulation -Chemoppx contraindicated due to positive Hemoccult Problem Qualifiers (1) Sepsis: Qualified Codes: A41.9 - Sepsis, unspecified organism (2) CAD (coronary artery disease): (3) DM2 (diabetes mellitus, type 2): Qualified Codes: E11.22 - Type 2 diabetes mellitus with diabetic chronic kidney disease; N18.6 - End stage renal disease; Z99.2 - Dependence on renal dialysis (4) HTN (hypertension): Qualified Codes: I10 - Essential (primary) hypertension (5) COPD (chronic obstructive pulmonary disease): Qualified Codes: J44.9 - Chronic obstructive pulmonary disease, unspecified Fran Hunt MD R2 October 19, 2017 08:49
--- NOTE | 2017-10-19 08:49 | HHI.DCPOC ---
Discharge Care Plan Diagnosis: (1) C. difficile colitis (2) CKD (chronic kidney disease) stage 5, GFR less than 15 ml/min (3) Abdominal pain (4) DM2 (diabetes mellitus, type 2) (5) HTN (hypertension) (6) Hypothyroidism Goals to Promote Your Health * To prevent worsening of your condition and complications * To maintain your health at the optimal level Directions to Meet Your Goals Take your medications as prescribed Follow your dietary instruction Follow activity as directed Keep your appointments as scheduled Take your immunizations and boosters as scheduled If your symptoms worsen call your PCP, if no PCP go to Urgent Care Center or Emergency Room Smoking is Dangerous to Your Health. Avoid second hand smoke Call the 24-hour hour crisis hotline for domestic abuse at Fran Hunt MD R2 October 19, 2017 08:49
[2017-10-19] MEDS: SODIUM CHLORIDE 1 GRAM TAB PO SCH (09:00)
[2017-10-19] MEDS: SODIUM CHLORIDE 0.9% FLUSH 10 ML FLUSH IV FLUSH SCH (09:00)
[2017-10-19] MEDS: DOCUSATE SODIUM 50 MG/SENNA 8.6 MG TAB PO SCH (09:00)
[2017-10-19 09:36] LABS: AUTOMATED NEUTROPHIL # 5.5 TH/MM3 (1.8-7.7); BASOPHIL # 0.1 TH/MM3 (0-0.2); BASOPHIL % 0.6 % (0.0-2.0); EOSINOPHIL # 0.1 TH/MM3 (0-0.4); EOSINOPHIL % 1.7 % (0.0-4.0); HEMATOCRIT 34.1 % (35.0-46.0); HEMOGLOBIN 11.1 GM/DL (11.6-15.3); LYMPH % 16.3 % (9.0-44.0); LYMPHOCYTE # 1.3 TH/MM3 (1.0-4.8); MEAN CELL VOLUME 101.5 FL (80.0-100.0); MEAN CORPUSCULAR HGB CONC 32.5 % (32.0-36.0); MONO % 13.5 % (0.0-8.0); MONOCYTE # 1.1 TH/MM3 (0-0.9); NEUT % 67.9 % (16.0-70.0); PLATELET COUNT 296 TH/MM3 (150-450); RED BLOOD COUNT 3.36 MIL/MM3 (4.00-5.30); RED CELL DISTRIBUTION WIDTH 15.5 % (11.6-17.2); WHITE BLOOD COUNT 8.1 TH/MM3 (4.0-11.0)
[2017-10-19] MEDS: LACTOBACILLUS ACIDOPHILUS TAB PO SCH (09:52)
[2017-10-19] MEDS: CALCITRIOL 0.25 MCG CAP PO SCH (09:53)
[2017-10-19] MEDS: ASPIRIN 81 MG CHEW TAB CHEW SCH (09:54)
[2017-10-19] MEDS: BUMETANIDE 1 MG TAB PO SCH (09:54)
[2017-10-19] MEDS: CARVEDILOL 12.5 MG TAB PO SCH (09:54)
[2017-10-19] MEDS: MAGNESIUM OXIDE 400 MG TAB PO SCH (09:54)
[2017-10-19] MEDS: MULTIVITAMIN TAB PO SCH (09:54)
[2017-10-19] MEDS: TICAGRELOR 90 MG TAB PO SCH (09:54)
[2017-10-19] MEDS: VANCOMYCIN 500 MG VIAL (FOR ORAL USE ONLY) PO SCH (09:55)
[2017-10-19] MEDS: CYANOCOBALAMIN 1,000 MCG TAB PO SCH (09:55)
[2017-10-19 10:02] LABS: CALCIUM 8.6 MG/DL (8.5-10.1); CREATININE 3.25 MG/DL (0.50-1.00)
== END 2017-10-19 11:46 | disposition home or self-care (01) | DRG 871 ==
LOC: NEPE 10:50 → NEDA 16:14 → N07B 17:11
PROVIDERS: ADMIT Family Medicine; ATTEND Family Medicine
PROC: 3E1M39Z Irrigation of Peritoneal Cavity using Dialysate, Percutaneous Approach (ICD-10-PCS; principal; 2017-10-16)
DX: A41.9 Sepsis, unspecified organism (principal); N18.6 End stage renal disease; I13.2 Hypertensive heart and chronic kidney disease with heart failure and with stage 5 chronic kidney disease, or end stage renal disease; E11.22 Type 2 diabetes mellitus with diabetic chronic kidney disease; A04.72 Enterocolitis due to Clostridium difficile, not specified as recurrent; N12 Tubulo-interstitial nephritis, not specified as acute or chronic; S30.1XXA Contusion of abdominal wall, initial encounter; D63.1 Anemia in chronic kidney disease; G62.9 Polyneuropathy, unspecified; E03.9 Hypothyroidism, unspecified; I50.9 Heart failure, unspecified; E78.00 Pure hypercholesterolemia, unspecified; J44.9 Chronic obstructive pulmonary disease, unspecified; K57.90 Diverticulosis of intestine, part unspecified, without perforation or abscess without bleeding; I25.10 Atherosclerotic heart disease of native coronary artery without angina pectoris; K59.00 Constipation, unspecified; F17.210 Nicotine dependence, cigarettes, uncomplicated; N30.80 Other cystitis without hematuria; B96.1 Klebsiella pneumoniae [K. pneumoniae] as the cause of diseases classified elsewhere; I25.2 Old myocardial infarction; Z89.429 Acquired absence of other toe(s), unspecified side; Z86.73 Personal history of transient ischemic attack (TIA), and cerebral infarction without residual deficits; Z87.11 Personal history of peptic ulcer disease; Z99.2 Dependence on renal dialysis; Z79.899 Other long term (current) drug therapy; S22.43XD Multiple fractures of ribs, bilateral, subsequent encounter for fracture with routine healing
CPT/HCPCS: 74176; 80048; 80053; 80202; 81001; 82272; 82948; 83605; 83690; 84703; 85025; 87040; 87077; 87086; 87186; 87205; 87328; 87329; 87493; 87506; 90935; 93005; 94150; 96361; 96365; 96367; 96374; 96375; 96376; J0131; J0696; J1170; J1580; J1644; J1815; J2270; J2405; J2543; J3370; J7030; J7050; Q4081

== ENCOUNTER 2018-05-10 10:58 | Observation (INO) ==
--- NOTE | 2018-05-10 11:19 | ED ---
HPI General Chief complaint: Weakness Stated complaint: Weakness Time Seen by Provider: 05/10/18 11:11 Source: patient Mode of arrival: ambulatory Limitations: no limitations History of Present Illness HPI Narrative: 62-year-old female patient with history of CAD, hypertension, chronic kidney disease currently on dialysis, last had dialysis on Monday, presents to the ER today because she has not been feeling well for several days , generally weak, disoriented according to family. She is brought in by EMS. She is currently complaining of weakness but denies any chest pains, vomiting, fevers, or other symptoms. Modifying Factors: None Associated Signs & Symptoms: General weakness, disorientation Risk Factors: Elderly, multiple medical issues Related Data Home Medications Medication Instructions Recorded Confirmed aspirin [Reinaldo Chewable Aspirin] 81 mg PO DAILY 05/10/18 05/10/18 atorvastatin 10 mg PO DAILY 05/10/18 05/10/18 bumetanide 2 mg PO BID 05/10/18 05/10/18 ferrous sulfate 325 mg PO DAILY 05/10/18 05/10/18 hydralazine 25 mg PO QID 05/10/18 05/10/18 levothyroxine 50 mcg PO DAILY 05/10/18 05/10/18 magnesium oxide 800 mg PO BID 05/10/18 05/10/18 metoclopramide HCl 5 mg PO BID 05/10/18 05/10/18 yjvbowyn-fef-jbdb-FA-lutein 1 tab PO DAILY 05/10/18 05/10/18 [Centrum Silver Women] pantoprazole 40 mg PO DAILY 05/10/18 05/10/18 ticagrelor [Brilinta] 90 mg PO BID 05/10/18 05/10/18 Allergies Allergy/AdvReac Type Severity Reaction Status Date / Time Sulfa (Sulfonamide AdvReac Mild RASH Verified 05/10/18 11:08 Antibiotics) sulfamethoxazole AdvReac Mild Rash Verified 05/10/18 11:08 trimethoprim AdvReac Mild Rash Verified 05/10/18 11:08 Review of Systems ROS: all other systems reviewed are negative [facility] Medical History Medical History Diabetes (Acute) History of renal dialysis (Acute) Myocardial infarction (Acute) Surgical History Surgical History H/O heart artery stent (Acute) Hx of appendectomy (Acute) Social History Social History Smoking Status: Current some day smoker Tobacco Type: Cigarettes How Often Do You Have a Drink Containing Alcohol: Never Recent Travel in [facility] within the Last 8 Weeks: No Recent Out of Country Travel within the Last 8 Weeks: No Immunization History Tetanus Immunization: Unsure Exam Narrative Exam Narrative: GENERAL: Well-developed elderly female patient currently in moderate distress. Awake, disoriented. SKIN: Focused skin assessment warm/dry. HEAD: Atraumatic. Normocephalic. EYES: Pupils equal and round. No scleral icterus. No injection or drainage. ENT: No nasal bleeding or discharge. Mucous membranes pink and moist. NECK: Trachea midline. No JVD. CARDIOVASCULAR: Regular rate and rhythm. No murmur appreciated. RESPIRATORY: No accessory muscle use. Clear to auscultation. Breath sounds equal bilaterally. GASTROINTESTINAL: Abdomen soft, non-tender, nondistended. Hepatic and splenic margins not palpable. MUSCULOSKELETAL: No obvious deformities. No clubbing. No cyanosis. No edema. NEUROLOGICAL: Awake and alert. No obvious cranial nerve deficits. Motor grossly within normal limits. Normal speech. PSYCHIATRIC: Appropriate mood and affect; insight and judgment normal. Course Initial Documented Vital Signs Temperature 97.5 F L 05/10/18 11:08 Pulse Rate 93 H 05/10/18 11:08 Respiratory Rate 16 05/10/18 11:08 Blood Pressure 185/96 H 05/10/18 11:08 Pulse Oximetry 99 05/10/18 11:08 Last Documented Vital Signs Temperature 97.5 F L 05/10/18 11:08 Pulse Rate 93 H 05/10/18 11:08 Respiratory Rate 16 05/10/18 11:08 Blood Pressure 185/96 H 05/10/18 11:08 Pulse Oximetry 99 05/10/18 11:08 Medical Decision Making [facility] Narrative Medical decision making narrative: Lab work shows an elevated BUN and creatinine with elevated potassium. Patient obviously needs for dialysis. She does not have any focal neurological deficits. CT the brain did not show any signs of acute intracranial processes. Case is discussed with Dr. Petit who is covering for Dr. Corral, patient's renal doctor, and he states he will do the dialysis and the patient. Case was then discussed with Dr. Leonard for admission. Medical Screen Exam Complete: Yes Emergency Medical Condition: Yes Differential Diagnosis Differential Diagnosis: Dehydration versus acute kidney failure versus electrolyte abnormalities versus sepsis versus acute intracranial processes Lab Data Lab results reviewed: Yes I reviewed the patient's lab results. Result diagrams: 05/10/18 11:30 05/10/18 11:30 Lab Results 05/10/18 05/10/18 Range/Units 11:30 11:30 WBC 5.3 (4.0-11.0) th/mm3 RBC 3.74 L (4.00-5.30) mil/mm3 Hgb 13.5 (11.6-15.3) gm/dL Hct 41.0 (35.0-46.0) % MCV 109.6 H (80.0-100.0) fL MCH 36.2 H (27.0-34.0) pg MCHC 33.0 (32.0-36.0) % RDW 13.3 (11.6-17.2) % Plt Count 173 (150-450) th/mm3 MPV 7.6 (7.0-11.0) fL Neut % (Auto) 56.9 (16.0-70.0) % Lymph % (Auto) 23.5 (9.0-44.0) % [place] % (Auto) 12.8 H (0.0-8.0) % Eos % (Auto) 6.3 H (0.0-4.0) % Baso % (Auto) 0.5 (0.0-2.0) % Neut # (Auto) 3.0 (1.8-7.7) th/mm3 Lymph # (Auto) 1.2 (1.0-4.8) th/mm3 [place] # (Auto) 0.7 (0.0-0.9) th/mm3 Eos # (Auto) 0.3 (0.0-0.4) th/mm3 Baso # (Auto) 0.0 (0.0-0.2) th/mm3 WBC Differential . Differential Comment Auto diff final Sodium 139 (136-145) meq/L Potassium 5.8 H (3.5-5.1) meq/L Chloride 108 H (98-107) meq/L Carbon Dioxide 21.8 (21.0-32.0) meq/L Anion Gap 9 (5-15) meq/L BUN 84 H (7-18) mg/dL Creatinine 6.77 H (0.50-1.00) mg/dL Estimated GFR 6 L (>89) mL/min Random Glucose 124 H (74-106) mg/dL Calcium 8.2 L (8.5-10.1) mg/dL Magnesium 2.2 (1.5-2.5) mg/dL Total Bilirubin 0.4 (0.2-1.0) mg/dL AST 86 H (15-37) U/L ALT 27 (10-53) U/L Alkaline Phosphatase 217 H (45-117) U/L Troponin I Less than 0.02 L (0.02-0.05) ng/mL Total Protein 7.2 (6.4-8.2) g/dL Albumin 2.8 L (3.4-5.0) g/dL Imaging Data Attestation: I personally reviewed and interpreted this imaging study as follows : Radiologist's impression: Chest X-Ray 05/10/18 11:11 CONCLUSION: Borderline cardiomegaly. Head CT 05/10/18 11:11 CONCLUSION: 1. No acute abnormality seen. 2. Cortical atrophy. 3. Mild areas of low density in the periventricular white matter represent focal areas of demyelination. These are unchanged. . Discharge Plan Discharge Details Anticipated Discharge Date: 05/10/18 Physicians Team ED Provider: Jacky Myers Primary Care Provider: UNKNOWN, Rxs /Orders / Referrals /Forms Prescriptions: No Action atorvastatin 10 mg Tablet 10 mg PO DAILY RF: 0 hydralazine 25 mg Tablet 25 mg PO QID RF: 0 levothyroxine 50 mcg Tablet 50 mcg PO DAILY RF: 0 pantoprazole 40 mg Tablet,Delayed Release (Dr/Ec) 40 mg PO DAILY RF: 0 ferrous sulfate 325 mg (65 mg iron) Tablet 325 mg PO DAILY RF: 0 aspirin [Reinaldo Chewable Aspirin] 81 mg Tablet,Chewable 81 mg PO DAILY RF: 0 bumetanide 1 mg Tablet 2 mg PO BID RF: 0 metoclopramide HCl 10 mg Tablet 5 mg PO BID RF: 0 fmpzipla-xyu-kqbp-FA-lutein [Centrum Silver Women] 8 mg iron-400 mcg-300 mcg Tablet 1 tab PO DAILY RF: 0 ticagrelor [Brilinta] 90 mg Tablet 90 mg PO BID RF: 0 magnesium oxide 400 mg Capsule 800 mg PO BID RF: 0 Status ED Status: In Room
[2018-05-10 11:35] LABS: Baso % (Auto) 0.5 % (0.0-2.0); Eos # (Auto) 0.3 th/mm3 (0.0-0.4); Eos % (Auto) 6.3 % (0.0-4.0); Hemoglobin 13.5 gm/dL (11.6-15.3); Lymph # (Auto) 1.2 th/mm3 (1.0-4.8); Lymph % (Auto) 23.5 % (9.0-44.0); Mean Corpuscular Hemoglobin 36.2 pg (27.0-34.0); Mean Corpuscular Volume 109.6 fL (80.0-100.0); Mean Platelet Volume 7.6 fL (7.0-11.0); Mono # (Auto) 0.7 th/mm3 (0.0-0.9); Mono % (Auto) 12.8 % (0.0-8.0); Neut % (Auto) 56.9 % (16.0-70.0); Platelet Count 173 th/mm3 (150-450); Red Blood Count 3.74 mil/mm3 (4.00-5.30); Red Cell Distribution Width 13.3 % (11.6-17.2); White Blood Count 5.3 th/mm3 (4.0-11.0)
--- NOTE | 2018-05-10 11:47 | XR ---
EXAM DATE: 05/10/2018 11:44 AM EST AGE/SEX: 62 years / Female INDICATIONS: Heart Palpitations CLINICAL DATA: This is the patient's initial encounter. Patient reports that signs and symptoms have been present for 1 day and indicates a pain score of 4/10. MEDICAL/SURGICAL HISTORY: . Congestive heart failure. Renal failure, chronic. Hypertension. . Appendectomy. COMPARISON: [facility] [place], CHEST SINGLE AP, 07/24/2017. . FINDINGS: There is a double-lumen catheter in place from the right subclavian approach with the tips overlying the right atrium. The cardiac silhouette is borderline enlarged. The lungs are grossly clear. CONCLUSION: Borderline cardiomegaly. Electronically signed by: Keegan Savage MD 05/10/2018 11:46 AM EST
[2018-05-10 12:02] LABS: Alkaline Phosphatase 217 U/L (45-117); Total Protein 7.2 g/dL (6.4-8.2)
[2018-05-10 12:15] LABS: Alanine Aminotransferase 27 U/L (10-53); Albumin 2.8 g/dL (3.4-5.0); Anion Gap 9 meq/L (5-15); Aspartate Aminotransferase 86 U/L (15-37); Blood Urea Nitrogen 84 mg/dL (7-18); Calcium 8.2 mg/dL (8.5-10.1); Carbon Dioxide 21.8 meq/L (21.0-32.0); Chloride 108 meq/L (98-107); Glomerular Filtration Rate 6 mL/min (>89); Glucose,Random 124 mg/dL (74-106); Magnesium 2.2 mg/dL (1.5-2.5); Potassium 5.8 meq/L (3.5-5.1); Sodium 139 meq/L (136-145)
--- NOTE | 2018-05-10 12:38 | CT ---
EXAM DATE: 05/10/2018 12:30 PM EST AGE/SEX: 62 years / Female INDICATIONS: Altered mental status. CLINICAL DATA: This is the patient's initial encounter. Patient reports that signs and symptoms have been present for 1 day and indicates a pain score of 0/10. MEDICAL/SURGICAL HISTORY: Diabetes. Myocardial infarction. . cardiac stent RADIATION DOSE: 56.44 CTDI (mGy) [place] [facility] [place] 09/10/2017. . TECHNIQUE: CT of the head without contrast. Using automated exposure control and adjustment of the mA and/or kV according to patient size, radiation dose was kept as low as reasonably achievable to ob tain optimal diagnostic quality images. DICOM format image data is available electronically for revi ew and comparison. FINDINGS: Cerebrum: The ventricles are normal for age. The cortical sulci are widened. There is low density wi thin the white matter superior to the basal ganglia regions. No evidence of midline shift, mass lesio n, hemorrhage or acute infarction. No extraaxial fluid collections are seen. Posterior Fossa: The cerebellum and brainstem are intact. The 4th ventricle is midline. The cerebe llopontine angle is unremarkable. Extracranial: The visualized portion of the orbits is intact. Skull: The calvaria is intact. No evidence of skull fracture. CONCLUSION: 1. No acute abnormality seen. 2. Cortical atrophy. 3. Mild areas of low density in the periventricular white matter represent focal areas of demyelinat ion. These are unchanged. . Electronically signed by: Keegan Savage MD 05/10/2018 12:36 PM EST
[2018-05-10] MEDS ORDERED: Gelatin 12 MM/7 MM Topical Foam TOPICAL PRN (13:00)
[2018-05-10] MEDS ORDERED: Sod Chloride 0.9% Inj 1,000 ML OTHER PRN ×2 (13:00)
[2018-05-10] MEDS ORDERED: Albumin Human 25% Inj 100 ML IV.SIG PRN (13:00)
[2018-05-10] MEDS ORDERED: Heparin 10,000 UNITS/10 ML Vial (for IV use) OTHER PRN ×2 (13:00)
[2018-05-10] MEDS ORDERED: Sod Chloride 0.9% Inj 1,000 ML IV.CONT PRN (13:00)
[2018-05-10] MEDS ORDERED: Acetaminophen 325 MG Tablet PO PRN ×2 (13:00→13:08)
[2018-05-10] MEDS ORDERED: Bisacodyl 10 MG Supp RECTAL PRN (13:08)
--- NOTE | 2018-05-10 13:30 | P.HP ---
History of Present Illness Service: Hospitalist Primary Care Physician: UNKNOWN History of Present Illness: Ms. Alicia is a 62-year-old female with history of CAD, hypertension, ESRD on hemodialysis who presents to the emergency department on 05/10/2018 due to generalized weakness, lethargy, drowsiness for two days prior to this admission. Patient received dialysis on Monday05/06/2018. However, she missed one dialysis due to her overall weakness. Patient sister at bedside gives most of the history. Normally she is able to ambulate some but now she is not able to ambulate at all. Patient sometimes takes pain medication as well, probably [place]. She has not taken any pain meds in two days. At the time of this interview around 1:45PM on 05/10/2018, patient wakes up on verbal and light physical stimuli. She answers questions appropriately and follows commands. No chest pain, shortness of breath. She apparently had low grade fever of 100 deg F yesterday. No changes in bowel or bladder habits. Past Medical history: CAD s/p stent placement, Hypothyroidism, congestive heart failure, hypertension Past surgical history: No major surgeries in the past. Social history: Smokes 3-4 cig a day. Does not drink alcohol. No illicit drugs. Family history: Brother with pancreatic cancer, CAD Review of Systems All other systems reviewed negative except as stated in [facility] - History History Provided By: Patient - Medical History Medical History: Medical History (Last Reviewed 05/10/18 @ 14:04 by Florentin Leonard DO) Diabetes History of renal dialysis Myocardial infarction - Surgical History Surgical History: Surgical History (Last Reviewed 05/10/18 @ 14:04 by Florentin Leonard DO) H/O heart artery stent Hx of appendectomy - Tobacco History Tobacco Use In Past 30 Days: Yes Smoking Status: Current some day smoker Tobacco Type: Cigarettes - Alcohol History How Often Do You Have a Drink Containing Alcohol: Never - Travel History Recent Travel in the [place] Within the Last 8 Weeks: No Recent Travel Out of the Country Within the Last 8 Weeks: No - Immunization History Tetanus Immunization: Unsure Medications and Allergies Active Medications: Active Medications Acetaminophen (Tylenol) 650 mg PO UNSCH PRN PRN Reason: SEE LABEL COMMENTS Acetaminophen (Tylenol) 650 mg PO Q4H PRN PRN Reason: Headache, fever, pain 1-4 Al Hydroxide/Mg Hydroxide (Milk Of Magnesia Liq) 30 ml PO Q12H PRN PRN Reason: Mild Constipation Bisacodyl (Dulcolax Supp) 10 mg RECTAL DAILY PRN PRN Reason: SEVERE CONSITIPATION Clonidine HCl (Catapres) 0.1 mg PO UNSCH PRN PRN Reason: SEE LABEL COMMENTS Diphenhydramine HCl (Benadryl) 25 mg PO UNSCH PRN PRN Reason: SEE LABEL COMMENTS Gelatin (Gelfoam 12 Mm/7 Mm Topical) 1 foam TOPICAL PRN PRN PRN Reason: help stop bleeding from site Gentamicin Sulfate (Gentamicin Inj) 20 mg OTHER WITH DIALYSIS PRN PRN Reason: Dwell Gentamycin Lock Heparin Sodium (Porcine) (Heparin Inj) 8,000 units OTHER WITH DIALYSIS PRN PRN Reason: for machine prime Heparin Sodium (Porcine) (Heparin Inj) 1,000 units OTHER WITH DIALYSIS PRN PRN Reason: Dwell Heparin to Fill Catheter Albumin Human (Flexbumin 25% Inj) 100 mls @ 60 mls/hr IV.SIG WITH DIALYSIS PRN PRN Reason: hypotension / volume replace Sodium Chloride (Ns Inj) 1,000 mls @ 0 mls/hr OTHER .Q0M PRN PRN Reason: for prime and rinse back Sodium Chloride (Ns Inj) 1,000 mls @ 200 mls/hr OTHER .Q5H PRN PRN Reason: for dialyzer flush PRN Sodium Chloride (Ns Inj) 1,000 mls @ 0 mls/hr IV.CONT .Q0M PRN PRN Reason: hypotension / volume replace Lactulose (Lactulose Liq) 30 ml PO DAILY PRN PRN Reason: SEVERE CONSITIPATION Mannitol (Mannitol Inj) 12.5 gm IV.PUSH UNSCH PRN PRN Reason: hypotension / volume replace Nitroglycerin (Nitrostat Sl) 0.4 mg SL Q5M PRN PRN Reason: CHEST PAIN Ondansetron HCl (Zofran Inj) 4 mg IV.PUSH UNSCH PRN PRN Reason: NAUSEA OR VOMITING Ondansetron HCl (Zofran Inj) 4 mg IV.PUSH Q6H PRN PRN Reason: NAUSEA OR VOMITING Sennosides (Senokot) 17.2 mg PO Q12H PRN PRN Reason: Moderate Constipation Sodium Chloride (Ns Flush) 2 ml IV.FLUSH PRN PRN PRN Reason: FLUSH AFTER USING IV ACCESS Sodium Chloride (Ns Flush) 5 ml IV.FLUSH PRN PRN PRN Reason: flush each lumen during HD Allergies Allergy/AdvReac Type Severity Reaction Status Date / Time Sulfa (Sulfonamide AdvReac Mild RASH Verified 05/10/18 11:08 Antibiotics) sulfamethoxazole AdvReac Mild Rash Verified 05/10/18 11:08 trimethoprim AdvReac Mild Rash Verified 05/10/18 11:08 Home Medications Medication Instructions Recorded Confirmed Type aspirin [Reinaldo Chewable Aspirin] 81 mg PO DAILY 05/10/18 05/10/18 History atorvastatin 10 mg PO DAILY 05/10/18 05/10/18 History bumetanide 2 mg PO BID 05/10/18 05/10/18 History ferrous sulfate 325 mg PO DAILY 05/10/18 05/10/18 History hydralazine 25 mg PO QID 05/10/18 05/10/18 History levothyroxine 50 mcg PO DAILY 05/10/18 05/10/18 History magnesium oxide 800 mg PO BID 05/10/18 05/10/18 History metoclopramide HCl 5 mg PO BID 05/10/18 05/10/18 History allyxajp-kud-lyha-FA-lutein 1 tab PO DAILY 05/10/18 05/10/18 History [Centrum Silver Women] pantoprazole 40 mg PO DAILY 05/10/18 05/10/18 History ticagrelor [Brilinta] 90 mg PO BID 05/10/18 05/10/18 History Exam Vital signs: Vital Signs 05/10/18 11:08 05/10/18 13:08 Temperature 97.5 F L Pulse Rate 93 H 84 Respiratory Rate 16 16 Blood Pressure 185/96 H 178/86 H Pulse Oximetry 99 98 Intake & Output 05/09/18 05/10/18 05/10/18 18:59 06:59 18:59 Weight 62.142 kg Narrative: GENERAL: This is a well-nourished, well-developed patient, in no apparent distress. Drowsy but wakes up on verbal commands. Follows commands. SKIN: No rashes, ecchymoses or lesions. Warm and dry. HEAD: Atraumatic. Normocephalic. No temporal or scalp tenderness. EYES: Pupils equal round and reactive. No pin-point pupil noted. No injection or drainage. ENT: Nose without bleeding, purulent drainage or septal hematoma. Airway patent. NECK: Trachea midline. No lymphadenopathy. Supple, nontender, no meningeal signs. CARDIOVASCULAR: Regular rate and rhythm without murmurs, gallops, or rubs. No JVD. RESPIRATORY: Clear to auscultation. Breath sounds equal bilaterally. No wheezes , rales, or rhonchi. GASTROINTESTINAL: Abdomen soft, nondistended. No guarding. Has generalized tenderness to palpation. MUSCULOSKELETAL: Extremities without clubbing, cyanosis, or edema. NEUROLOGICAL: Drowsy. No focal deficits. Results - Labs CBC & Chem 7: 05/10/18 11:30 05/10/18 11:30 Labs: Laboratory Results - last 24 hr 05/10/18 05/10/18 11:30 11:30 WBC 5.3 RBC 3.74 L Hgb 13.5 Hct 41.0 MCV 109.6 H MCH 36.2 H MCHC 33.0 RDW 13.3 Plt Count 173 MPV 7.6 Neut % (Auto) 56.9 Lymph % (Auto) 23.5 [place] % (Auto) 12.8 H Eos % (Auto) 6.3 H Baso % (Auto) 0.5 Neut # (Auto) 3.0 Lymph # (Auto) 1.2 [place] # (Auto) 0.7 Eos # (Auto) 0.3 Baso # (Auto) 0.0 WBC Differential . Differential Comment Auto diff final Sodium 139 Potassium 5.8 H Chloride 108 H Carbon Dioxide 21.8 Anion Gap 9 BUN 84 H Creatinine 6.77 H Estimated GFR 6 L Random Glucose 124 H Calcium 8.2 L Magnesium 2.2 Total Bilirubin 0.4 AST 86 H ALT 27 Alkaline Phosphatase 217 H Troponin I Less than 0.02 L Total Protein 7.2 Albumin 2.8 L - Imaging Impressions Chest X-Ray 05/10/18 11:11 CONCLUSION: Borderline cardiomegaly. Head CT 05/10/18 11:11 CONCLUSION: 1. No acute abnormality seen. 2. Cortical atrophy. 3. Mild areas of low density in the periventricular white matter represent focal areas of demyelination. These are unchanged. . Caprini VTE Risk Assessment Caprini VTE Risk Assessment: No/Low Risk (score <= 1) Caprini Risk Assessment Model: Point Value = 1 Point Value = 2 Point Value = 3 Point Value = 5 Age 41-60 Minor surgery BMI > 25 kg/m2 Swollen legs Varicose veins or History of unexplained or recurrent spontaneous Oral contraceptives or hormone replacement Sepsis (< 1 month) Serious lung disease, including pneumonia (< 1 month) Abnormal pulmonary function Acute myocardial infarction Congestive heart failure (< 1 month) History of inflammatory bowel disease Medical patient at bed rest Age 61-74 Arthroscopic surgery Major open surgery (> 45 min) Laparoscopic surgery (> 45 min) Malignancy Confined to bed (> 72 hours) Immobilizing plaster cast Central venous access Age >= 75 History of VTE Family history of VTE Factor V Leiden Prothrombin [id number] Lupus anticoagulant Anticardiolipin antibodies Elevated serum homocysteine Heparin-induced thrombocytopenia Other congenital or acquired thrombophilia Stroke (< 1 month) Elective arthroplasty Hip, pelvis, or leg fracture Acute spinal cord injury (< 1 month) Prophylaxis Regimen: Total Risk Factor Score Risk Level Prophylaxis Regimen 0-1 Low Early ambulation 2 Moderate Order ONE of the following: *Sequential Compression Device (SCD) *Heparin 5000 units SQ BID 3-4 Higher Order ONE of the following medications: *Heparin 5000 units SQ TID *Enoxaparin/Lovenox 40 mg SQ daily (WT < 150 kg, CrCl > 30 mL/min) *Enoxaparin/Lovenox 30 mg SQ daily (WT < 150 kg, CrCl > 10-29 mL/min) *Enoxaparin/Lovenox 30 mg SQ BID (WT < 150 kg, CrCl > 30 mL/min) AND/OR *Sequential Compression Device (SCD) 5 or more Highest Order ONE of the following medications: *Heparin 5000 units SQ TID (Preferred with Epidurals) *Enoxaparin/Lovenox 40 mg SQ daily (WT < 150 kg, CrCl > 30 mL/min) *Enoxaparin/Lovenox 30 mg SQ daily (WT < 150 kg, CrCl > 10-29 mL/min) *Enoxaparin/Lovenox 30 mg SQ BID (WT < 150 kg, CrCl > 30 mL/min) AND *Sequential Compression Device (SCD) Assessment and Plan - Plan Mr. Alicia is a pleasant 62 year old female with a history of ESRD on HD, CAD, hypertension, hypothyroidism who presents to the ED due to two day duration of lethargy, confusion, drowsiness. She missed one dialysis. Her last dialysis was on Monday05/06/2018. Acute metabolic encephalopathy -Possibly related to lack of dialysis. -Nephrology consulted. Pt will likely need hemodialysis today. -Opioids are not likely the reason. Pupils do not appear to be pin-point. No pain meds in the last two days. -Depending on how patient responds after dialysis, we may need PT eval as well. ESRD on hemodialysis Hyperkalemia -K+ 5.8. Nephrology consulted. Elevated Alk Phos -Patient has abdominal pain, waytt RUQ area. -Alk Phos is elevated to 217. In October it was 79. -Will get a Liver US. CAD s/p stent placement in 04/2017 -Patient has multivessel CAD. She turned down offer to be considered for CABG -Patient underwent PCI. -Continue Aspirin, statin, Ticagrelor. Full code. SCDs for DVT Prophylaxis. If hospitalization expected to be more than 48 hours, consider heparin for DVT Prophylaxis.
[2018-05-10 14:30] LABS: Bilirubin,Urine Negative (Negative); Clarity,Urine Clear (Clear); Color,Urine Yellow (Yellw/Straw); Glucose,Urine (UA) Negative (Negative); Leukocyte Esterase,Urine Negative (Negative); Mucus,Urine Few /lpf (Occasional); Nitrite,Urine Negative (Negative); Specific Gravity,Urine 1.009 (1.002-1.035); Squamous Epithelial Cell,Urine <1 /hpf (0-5)
--- NOTE | 2018-05-10 15:21 | P.CONNP ---
History of Present Illness Service: Nephrology Consult date: 05/10/18 Requesting Physician: Florentin Leonard Reason for Consult: End-stage renal disease missed her dialysis Primary Care Provider: UNKNOWN Chief Complaint: Altered mental status History of Present Illness: Patient is a 62-year-old white female with history of end-stage renal disease on hemodialysis, due to holiday she went on Monday but could not make it on Monday as she was feeling weak and tired, her condition continued to deteriorate and she became confused today and came to the emergency with altered mental status, her potassium is 5.8 her BUN 84 and creatinine is elevated 6.77. Review of Systems Constitutional: Reports anorexia, Reports fatigue, Reports malaise Eyes: Denies blind spots, Denies blurry vision, Denies bulging eyes, Denies change in vision, Denies double vision, Denies discharge, Denies dry eyes, Denies floaters, Denies irritation, Denies itchy eyes, Denies loss of vision, Denies pain, Denies requires corrective lenses, Denies sensitivity to light, Denies other Ears, Nose, Mouth, and Throat: Denies abnormal hearing, Denies bleeding gums, Denies bad breath, Denies change in voice, Denies dental pain, Denies difficulty swallowing, Denies dizziness, Denies dry mouth, Denies ear discharge , Denies ear pain, Denies facial pain, Denies headache(s), Denies hearing loss, Denies hoarseness, Denies lip swelling, Denies nosebleed, Denies mouth lesions, Denies mouth pain, Denies nasal congestion, Denies nasal discharge, Denies nasal obstruction, Denies nasal trauma, Denies neck lump, Denies neck pain, Denies nose pain, Denies pain with swallowing, Denies poor balance, Denies post nasal drip, Denies ringing in the ears, Denies sinus pain, Denies sinus pressure , Denies sore throat, Denies throat swelling, Denies tongue swelling, Denies other Cardiovascular: Reports foot swelling, Reports shortness of breath Respiratory: Reports other Gastrointestinal: Reports other Genitourinary: Reports other (On dialysis) Musculoskeletal: Reports body aches, Reports joint pain Skin/Breast: Reports other Neurologic: Reports weakness Psychiatric: Reports change in appetite Endocrine: Reports other Hematologic/Lymphatic: Denies easy bleeding, Denies easy bruising, Denies enlarged lymph nodes, Denies other Allergic/Immunologic: Denies GI upset with certain foods, Denies hives, Denies itchy eyes, Denies lip swelling, Denies seasonal runny nose, Denies throat swelling, Denies tongue swelling, Denies wheezing, Denies other PMFSH - History History Provided By: Patient - Medical History Medical History: Medical History (Last Reviewed 05/10/18 @ 15:18 by Carlo Petit MD) Diabetes History of renal dialysis Myocardial infarction - Surgical History Surgical History: Surgical History (Last Reviewed 05/10/18 @ 15:19 by Carlo Petit MD) H/O heart artery stent Hx of appendectomy - Social History I have reviewed the patient's Social History: Yes - Tobacco History Tobacco Use In Past 30 Days: Yes Smoking Status: Current some day smoker Tobacco Type: Cigarettes - Alcohol History How Often Do You Have a Drink Containing Alcohol: Never - Travel History Recent Travel in the [place] Within the Last 8 Weeks: No Recent Travel Out of the Country Within the Last 8 Weeks: No - Immunization History Tetanus Immunization: Unsure Medications and Allergies Active Medications: Active Medications Acetaminophen (Tylenol) 650 mg PO UNSCH PRN PRN Reason: SEE LABEL COMMENTS Acetaminophen (Tylenol) 650 mg PO Q4H PRN PRN Reason: Headache, fever, pain 1-4 Al Hydroxide/Mg Hydroxide (Milk Of Juan J Brito) 30 ml PO Q12H PRN PRN Reason: Mild Constipation Aspirin (Aspirin Chew) 81 mg PO DAILY [facility] Atorvastatin Calcium (Lipitor) 10 mg PO DAILY [facility] Bisacodyl (Dulcolax Supp) 10 mg RECTAL DAILY PRN PRN Reason: SEVERE CONSITIPATION Clonidine HCl (Catapres) 0.1 mg PO UNSCH PRN PRN Reason: SEE LABEL COMMENTS Diphenhydramine HCl (Benadryl) 25 mg PO UNSCH PRN PRN Reason: SEE LABEL COMMENTS Gelatin (Gelfoam 12 Mm/7 Mm Topical) 1 foam TOPICAL PRN PRN PRN Reason: help stop bleeding from site Gentamicin Sulfate (Gentamicin Inj) 20 mg OTHER WITH DIALYSIS PRN PRN Reason: Dwell Gentamycin Lock Heparin Sodium (Porcine) (Heparin Inj) 8,000 units OTHER WITH DIALYSIS PRN PRN Reason: for machine prime Heparin Sodium (Porcine) (Heparin Inj) 1,000 units OTHER WITH DIALYSIS PRN PRN Reason: Dwell Heparin to Fill Catheter Albumin Human (Flexbumin 25% Inj) 100 mls @ 60 mls/hr IV.SIG WITH DIALYSIS PRN PRN Reason: hypotension / volume replace Sodium Chloride (Ns Inj) 1,000 mls @ 0 mls/hr OTHER .Q0M PRN PRN Reason: for prime and rinse back Sodium Chloride (Ns Inj) 1,000 mls @ 200 mls/hr OTHER .Q5H PRN PRN Reason: for dialyzer flush PRN Sodium Chloride (Ns Inj) 1,000 mls @ 0 mls/hr IV.CONT .Q0M PRN PRN Reason: hypotension / volume replace Lactulose (Lactulose Liq) 30 ml PO DAILY PRN PRN Reason: SEVERE CONSITIPATION Levothyroxine Sodium (Synthroid) 50 mcg PO DAILY@0600 [facility] Mannitol (Mannitol Inj) 12.5 gm IV.PUSH UNSCH PRN PRN Reason: hypotension / volume replace Nitroglycerin (Nitrostat Sl) 0.4 mg SL Q5M PRN PRN Reason: CHEST PAIN Ondansetron HCl (Zofran Inj) 4 mg IV.PUSH UNSCH PRN PRN Reason: NAUSEA OR VOMITING Ondansetron HCl (Zofran Inj) 4 mg IV.PUSH Q6H PRN PRN Reason: NAUSEA OR VOMITING Pantoprazole Sodium (Protonix) 40 mg PO DAILY [facility] Sennosides (Senokot) 17.2 mg PO Q12H PRN PRN Reason: Moderate Constipation Sodium Chloride (Ns Flush) 2 ml IV.FLUSH PRN PRN PRN Reason: FLUSH AFTER USING IV ACCESS Sodium Chloride (Ns Flush) 5 ml IV.FLUSH PRN PRN PRN Reason: flush each lumen during HD Ticagrelor (Brilinta) 90 mg PO BID [facility] Allergies Allergy/AdvReac Type Severity Reaction Status Date / Time Sulfa (Sulfonamide AdvReac Mild RASH Verified 05/10/18 11:08 Antibiotics) sulfamethoxazole AdvReac Mild Rash Verified 05/10/18 11:08 trimethoprim AdvReac Mild Rash Verified 05/10/18 11:08 Home Medications Medication Instructions Recorded Confirmed Type aspirin [Reinaldo Chewable Aspirin] 81 mg PO DAILY 05/10/18 05/10/18 History atorvastatin 10 mg PO DAILY 05/10/18 05/10/18 History bumetanide 2 mg PO BID 05/10/18 05/10/18 History ferrous sulfate 325 mg PO DAILY 05/10/18 05/10/18 History hydralazine 25 mg PO QID 05/10/18 05/10/18 History levothyroxine 50 mcg PO DAILY 05/10/18 05/10/18 History magnesium oxide 800 mg PO BID 05/10/18 05/10/18 History metoclopramide HCl 5 mg PO BID 05/10/18 05/10/18 History mpfazped-jop-cgjk-FA-lutein 1 tab PO DAILY 05/10/18 05/10/18 History [Centrum Silver Women] pantoprazole 40 mg PO DAILY 05/10/18 05/10/18 History ticagrelor [Brilinta] 90 mg PO BID 05/10/18 05/10/18 History Exam Vital signs: Vital Signs 05/10/18 11:08 05/10/18 13:08 Temperature 97.5 F L Pulse Rate 93 H 84 Respiratory Rate 16 16 Blood Pressure 185/96 H 178/86 H Pulse Oximetry 99 98 Intake & Output 05/09/18 05/10/18 05/10/18 18:59 06:59 18:59 Weight 62.142 kg Narrative: GENERAL: Well-nourished, well-developed patient. SKIN: Warm and dry. HEAD: Normocephalic. EYES: No scleral icterus. No injection or drainage. NECK: Supple, trachea midline. No JVD or lymphadenopathy. CARDIOVASCULAR: Regular rate and rhythm without murmurs, gallops, or rubs. Permacath in place RESPIRATORY: Breath sounds equal bilaterally. No accessory muscle use. GASTROINTESTINAL: Abdomen soft, non-tender, nondistended. EXTREMITIES: 1+ NEUROLOGICAL: Awake, alert, and oriented patient is complaining of weakness Results - Lab Results 05/10/18 11:30 05/10/18 11:30 Most recent lab results Calcium 8.2 mg/dL (8.5-10.1) L 05/10/18 11:30 Magnesium 2.2 mg/dL (1.5-2.5) 05/10/18 11:30 Assessment and Plan - Assessment (1) End stage renal disease Code(s): N18.6 - End stage renal disease Status: Acute (2) Altered mental state Code(s): R41.82 - Altered mental status, unspecified Status: Acute (3) Hyperkalemia Code(s): E87.5 - Hyperkalemia Status: Acute (4) Diabetes Code(s): E11.9 - Type 2 diabetes mellitus without complications Status: Acute - Plan Patient is seen during hemodialysis 1K bath and ultrafiltration of 3 L, patient normal days are Monday, Monday and Monday, she missed her dialysis due to holiday season and she has weakness and tiredness with malaise and progressively got confused with high BUN and creatinine Hyperkalemia is treated with hemodialysis Next hemodialysis is tomorrow Patient follows with Dr. Corral
[2018-05-11] MEDS: Levothyroxine 50 MCG Tablet PO SCH (07:22)
--- NOTE | 2018-05-11 13:35 | US ---
EXAM DATE: 05/11/2018 1:31 PM EST AGE/SEX: 62 years / Female INDICATIONS: Abdominal pain with elevated LFT's. CLINICAL DATA: This is the patient's initial encounter. Patient reports that signs and symptoms have been present for 2 days and indicates a pain score of 2/10. MEDICAL/SURGICAL HISTORY: Hypertension. Hypothyroidism. Congestive heart failure. CAD. ESRD on hemodialysis. Myocardial infarction. Appendectomy. Coronary artery stent. COMPARISON: [facility] – [place], CT ABDOMEN & PELVIS W/O CONTRAST, 10/18/2017. . MEASUREMENTS: Liver:__ 16.2 cm. Common Bile Duct:__ 5mm. Right Kidney:__ 9.4 x 4.8 x 4.6 cm. FINDINGS: Liver: Mildly heterogeneous hepatic echotexture. No definite focal mass or biliary ductal dilatation. Portal Vein: Hepatopedal flow seen in portal vein. Common Duct: No intraluminal mass or stone visualized. Gallbladder: Multiple stones. Pancreas: The visualized portions are within normal limits Right Kidney: Increased echotexture. No mass or hydronephrosis. Other: None. CONCLUSION: Gallstones. Electronically signed by: Keegan Cedeno MD 05/11/2018 1:34 PM EST
--- NOTE | 2018-05-11 15:18 | P.PN ---
Subjective Interval history: Patient is seen lying in bed post dialysis. Sister is at bedside. Patient tells me that she feels much better. Appears to be oriented at baseline. Still somewhat weak. No chest pain or shortness of breath. No nausea vomiting or diarrhea. Physical Exam Vital signs: Vital Signs 05/10/18 17:10 05/10/18 19:30 05/10/18 20:00 Temperature 97.6 F 97.6 F Pulse Rate 115 H 89 Respiratory Rate 16 18 18 Blood Pressure 147/69 H 114/66 Pulse Oximetry 99 93 L 05/11/18 00:00 05/11/18 04:00 05/11/18 07:40 Temperature 98.6 F Pulse Rate 93 H Respiratory Rate 15 18 Blood Pressure 141/68 H Pulse Oximetry 96 95 05/11/18 07:50 05/11/18 13:42 Temperature 98.5 F 98.8 F Pulse Rate 80 91 H Respiratory Rate 20 16 Blood Pressure 138/69 155/70 H Pulse Oximetry 95 98 Intake & Output 05/10/18 05/11/18 05/11/18 18:59 06:59 18:59 Output Total 1999 Balance -1999 Weight 62.142 kg Output: Hemodialysis Amount 1999 Other: # Voids 1 Narrative: GENERAL: Well-nourished, well-developed patient. SKIN: Warm and dry. HEAD: Normocephalic. EYES: No scleral icterus. No injection or drainage. CARDIOVASCULAR: Regular rate and rhythm. Permacath in place - rt chest wall RESPIRATORY: Breath sounds equal bilaterally. No accessory muscle use. GASTROINTESTINAL: Abdomen soft, non-tender, nondistended. EXTREMITIES: 1+ bilateral lower leg edema. NEUROLOGICAL: Awake, alert, and oriented Results - Labs CBC & Chem 7: 05/10/18 11:30 05/10/18 11:30 Laboratory Results - last 24 hr 05/10/18 16:30 POC Glucose 117 H - Imaging Impressions Liver Ultrasound 05/11/18 00:00 CONCLUSION: Gallstones. Assessment and Plan - Plan Mr. Alicia is a pleasant 62 year old female with a history of ESRD on HD, CAD, hypertension, hypothyroidism who presents to the ED due to two day duration of lethargy, confusion, drowsiness. She missed one dialysis. Her last dialysis was on Monday05/06/2018. Acute metabolic encephalopathy -Possibly related to lack of dialysis. -Nephrology consulted. Pt received dialysis 05/10 and 05/11 -Appears to have returned to baseline -alert and oriented as of 1122 ESRD on hemodialysis Hyperkalemia -K+ 5.8. Nephrology consulted. Elevated Alk Phos -Patient has abdominal pain, wyatt RUQ area. -Now resolved -Alk Phos is elevated to 217. In October it was 79. -Will get a Liver US. Ultrasound negative. CAD s/p stent placement in 04/2017 -Patient has multivessel CAD. She turned down offer to be considered for CABG -Patient underwent PCI. -Continue Aspirin, statin, Ticagrelor. Full code. SCDs for DVT Prophylaxis. If hospitalization expected to be more than 48 hours, consider heparin for DVT Prophylaxis. Charge planning: Likely home as soon as cleared by dialysis. Appreciate PT evaluation.
[2018-05-12] MEDS: Levothyroxine 50 MCG Tablet PO SCH (07:46)
--- NOTE | 2018-05-12 11:52 | P.PN ---
Subjective Interval history: Patient is seen sitting up in room. She is anxious to go home. Is still having some right upper quadrant pain -intermittent and sharp. No nausea vomiting or diarrhea. No fever or chills. Physical Exam Vital signs: Vital Signs 05/11/18 13:42 05/11/18 16:00 05/11/18 20:00 Temperature 98.8 F 97.6 F 98.6 F Pulse Rate 91 H 87 99 H Respiratory Rate 16 16 18 Blood Pressure 155/70 H 122/67 129/70 Pulse Oximetry 98 100 96 05/11/18 20:15 05/11/18 23:38 05/12/18 00:05 Temperature 98.5 F Pulse Rate 66 88 92 H Respiratory Rate 16 Blood Pressure 127/68 Pulse Oximetry 93 L 05/12/18 04:00 05/12/18 08:00 05/12/18 08:31 Temperature 97.6 F Pulse Rate 88 86 Respiratory Rate 16 14 Blood Pressure 134/68 179/83 H Pulse Oximetry 92 L 92 L 94 L 05/12/18 09:50 Temperature Pulse Rate 96 H Respiratory Rate Blood Pressure Pulse Oximetry Intake & Output 05/11/18 05/12/18 05/12/18 18:59 06:59 18:59 Intake Total 720 / 720 Output Total 1999 Balance -1280 / -1280 Intake: Oral 720 / 720 Output: Hemodialysis Amount 1999 Other: # Voids 2 Date of Last Bowel Movement 05/11/18 05/11/18 # Bowel Movements 2 Narrative: GENERAL: Well-nourished, well-developed patient. SKIN: Warm and dry. HEAD: Normocephalic. EYES: No scleral icterus. No injection or drainage. CARDIOVASCULAR: Regular rate and rhythm. Permacath in place - rt chest wall RESPIRATORY: Breath sounds equal bilaterally. No accessory muscle use. GASTROINTESTINAL: Abdomen soft, right upper quadrant pain with palpation, nondistended. EXTREMITIES: 1+ bilateral lower leg edema. NEUROLOGICAL: Awake, alert, and oriented Results - Labs CBC & Chem 7: 05/10/18 11:30 05/10/18 11:30 - Imaging Impressions Liver Ultrasound 05/11/18 00:00 CONCLUSION: Gallstones. Assessment and Plan - Assessment (1) Right upper quadrant abdominal pain Code(s): R10.11 - Right upper quadrant pain Status: Acute (2) Elevated alkaline phosphatase level Code(s): R74.8 - Abnormal levels of other serum enzymes Status: Acute (3) End stage renal disease Code(s): N18.6 - End stage renal disease Status: Chronic (4) Encephalopathy acute Code(s): G93.40 - Encephalopathy, unspecified Status: Resolved - Plan Ms. Alicia is a pleasant 62 year old female with a history of ESRD on HD, CAD, hypertension, hypothyroidism who presents to the ED due to two day duration of lethargy, confusion, drowsiness. She missed one dialysis. Her last dialysis was on Monday05/06/2018. Acute metabolic encephalopathy -resolved ESRD on hemodialysis -Possibly related to lack of dialysis. -Nephrology consulted. Pt received dialysis 05/10 and 05/11. Will be returning to previous schedule at discharge. -Appears to have returned to baseline -alert and oriented as of 05/11 Elevated Alk Phos -Patient has abdominal pain, wyatt RUQ area. -Recurrent. Will provide short-term pain medicine. Patient is to follow-up with GI as an outpatient. -Alk Phos is elevated to 217. In October it was 79. -Will get a Liver US. Ultrasound negative. CAD s/p stent placement in 04/2017 -Patient has multivessel CAD. She turned down offer to be considered for CABG -Patient underwent PCI. -Continue Aspirin, statin, Ticagrelor. Full code. SCDs for DVT Prophylaxis. If hospitalization expected to be more than 48 hours, consider heparin for DVT Prophylaxis. Charge planning: We will discharge home. Patient has refused PT evaluation [facility] Prescription Drug Monitoring Database has been queried and verified prior to prescribing the controlled substance. Acute pain exception: This patient has normal, predicted, physiological, and time limited response to an adverse mechanical stimulus associated with surgery , trauma, or acute illness as described in my notes. There is a lack of alternative treatment options other than to include the prescribed narcotic treatment for this condition.
--- NOTE | 2018-05-12 12:02 | P.DS ---
Date of admission: 05/10/18 13:09 Primary care physician: UNKNOWN Attending physician on discharge: Sujey Hook Anticipated date of discharge: 05/12/18 Brief History from admission: Ms. Alicia is a 62-year-old female with history of CAD, hypertension, ESRD on hemodialysis who presents to the emergency department on 05/10/2018 due to generalized weakness, lethargy, drowsiness for two days prior to this admission. Patient received dialysis on Monday05/06/2018. However, she missed one dialysis due to her overall weakness. Patient sister at bedside gives most of the history. Normally she is able to ambulate some but now she is not able to ambulate at all. Patient sometimes takes pain medication as well, probably [place]. She has not taken any pain meds in two days. At the time of this interview around 1:45PM on 05/10/2018, patient wakes up on verbal and light physical stimuli. She answers questions appropriately and follows commands. No chest pain, shortness of breath. She apparently had low grade fever of 100 deg F yesterday. No changes in bowel or bladder habits. Past Medical history: CAD s/p stent placement, Hypothyroidism, congestive heart failure, hypertension Past surgical history: No major surgeries in the past. Social history: Smokes 3-4 cig a day. Does not drink alcohol. No illicit drugs. Family history: Brother with pancreatic cancer, CAD DS: Diagnosis - Discharge Diagnosis (1) Right upper quadrant abdominal pain Status: Acute (2) Elevated alkaline phosphatase level Status: Acute (3) End stage renal disease Status: Chronic (4) Encephalopathy acute Status: Resolved (5) Gall bladder stones Status: Acute DS: Medications - Discharge Medications Prescriptions: hydrocodone-acetaminophen 1 tab PO Q8HR PRN #6 tab PRN Reason: Acute Pain DS: Summary Hospital Course: Ms. Alicia is a pleasant 62 year old female with a history of ESRD on HD, CAD, hypertension, hypothyroidism who presents to the ED due to two day duration of lethargy, confusion, drowsiness. She missed one dialysis. Her last dialysis was on Monday05/06/2018. Acute metabolic encephalopathy -resolved ESRD on hemodialysis - chronic -Possibly related to lack of dialysis. -Nephrology consulted. Pt received dialysis 05/10 and 05/11. Will be returning to previous schedule at discharge. -Appears to have returned to baseline -alert and oriented as of 05/11 Elevated Alk Phos -acute -Patient has abdominal pain, wyatt RUQ area. -Recurrent. Will provide short-term pain medicine. Patient is to follow-up with GI as an outpatient. -Alk Phos is elevated to 217. In October it was 79. -Will get a Liver US. Ultrasound negative for blockage but did show gallstones. [employer] Prescription Drug Monitoring Database has been queried and verified prior to prescribing the controlled substance. Acute pain exception: This patient has normal, predicted, physiological, and time limited response to an adverse mechanical stimulus associated with surgery , trauma, or acute illness as described in my notes. There is a lack of alternative treatment options other than to include the prescribed narcotic treatment for this condition. - Time Spent with Patient Total time spent providing and/or coordinating discharge services: Less than 30 minutes - Quality: VTE Deep Vein Thrombosis/Pulmonary Embolism Present on Admission: No Exam Vital signs: Vital Signs 05/11/18 13:42 05/11/18 16:00 05/11/18 20:00 Temperature 98.8 F 97.6 F 98.6 F Pulse Rate 91 H 87 99 H Respiratory Rate 16 16 18 Blood Pressure 155/70 H 122/67 129/70 Pulse Oximetry 98 100 96 05/11/18 20:15 05/11/18 23:38 05/12/18 00:05 Temperature 98.5 F Pulse Rate 66 88 92 H Respiratory Rate 16 Blood Pressure 127/68 Pulse Oximetry 93 L 05/12/18 04:00 05/12/18 08:00 05/12/18 08:31 Temperature 97.6 F Pulse Rate 88 86 Respiratory Rate 16 14 Blood Pressure 134/68 179/83 H Pulse Oximetry 92 L 92 L 94 L 05/12/18 09:50 Temperature Pulse Rate 96 H Respiratory Rate Blood Pressure Pulse Oximetry Intake & Output 05/11/18 05/12/18 05/12/18 18:59 06:59 18:59 Intake Total 720 / 720 Output Total 1999 Balance -1280 / -1280 Intake: Oral 720 / 720 Output: Hemodialysis Amount 1999 Other: # Voids 2 Date of Last Bowel Movement 05/11/18 05/11/18 # Bowel Movements 2 Narrative: GENERAL: Well-nourished, well-developed patient. SKIN: Warm and dry. HEAD: Normocephalic. EYES: No scleral icterus. No injection or drainage. CARDIOVASCULAR: Regular rate and rhythm. Permacath in place - rt chest wall RESPIRATORY: Breath sounds equal bilaterally. No accessory muscle use. GASTROINTESTINAL: Abdomen soft, right upper quadrant pain with palpation, nondistended. EXTREMITIES: 1+ bilateral lower leg edema. NEUROLOGICAL: Awake, alert, and oriented Results Procedures completed during hospitalization: dialysis x 2 - Impressions ITS Impressions Chest X-Ray 05/10/18 11:11 CONCLUSION: Borderline cardiomegaly. Head CT 05/10/18 11:11 CONCLUSION: 1. No acute abnormality seen. 2. Cortical atrophy. 3. Mild areas of low density in the periventricular white matter represent focal areas of demyelination. These are unchanged. . Liver Ultrasound 05/11/18 00:00 CONCLUSION: Gallstones. Discharge Plan - Discharge Disposition Patient Disposition: 01 Discharge Home - Discharge Condition Condition: Good - Discharge Order Discharge Orders: Discharge Order (Routine); Ordered 05/12/18 Ordered By: Radha Otero - Discharge Details Anticipated Discharge Date: 05/10/18 - Physicians Team Primary Care Provider: UNKNOWN, Attending Provider: Sujey Hook Other Providers: Carlo Petit MD
== END 2018-05-12 13:23 | disposition home or self-care (01) ==
LOC: NEDA 10:58 → NEPC 10:58 → NEPGCP 14:36
PROVIDERS: ADMIT Hospitalist; ATTEND Hospitalist
DX: I25.10 Atherosclerotic heart disease of native coronary artery without angina pectoris; Z79.890 Hormone replacement therapy; Z79.899 Other long term (current) drug therapy; E11.22 Type 2 diabetes mellitus with diabetic chronic kidney disease; G93.41 Metabolic encephalopathy; Z95.5 Presence of coronary angioplasty implant and graft; I13.2 Hypertensive heart and chronic kidney disease with heart failure and with stage 5 chronic kidney disease, or end stage renal disease; Z90.49 Acquired absence of other specified parts of digestive tract; N18.6 End stage renal disease; E03.9 Hypothyroidism, unspecified; Z82.49 Family history of ischemic heart disease and other diseases of the circulatory system; I50.9 Heart failure, unspecified; Z80.0 Family history of malignant neoplasm of digestive organs; F17.210 Nicotine dependence, cigarettes, uncomplicated; I25.2 Old myocardial infarction; Z79.82 Long term (current) use of aspirin; Z79.02 Long term (current) use of antithrombotics/antiplatelets; Z99.2 Dependence on renal dialysis; E87.5 Hyperkalemia; K80.20 Calculus of gallbladder without cholecystitis without obstruction